=== PATIENT | male | born 1935 | race Caucasian/White ===

== ENCOUNTER 2017-01-27 13:58 | Outpatient (CLI) ==
[2013-01-17 20:59] VITALS: TEMP 97.5
[2016-03-17 05:35] VITALS: BMI 29.2
--- NOTE | 2017-01-27 15:48 | DI ---
EXAM: PA and lateral views of the chest HISTORY: Chronic obstructive pulmonary disease COMPARISON: Chest x-ray 06/26/2016 and 05/21/2015 FINDINGS: The cardiomediastinal silhouette is unchanged and mildly enlarged with atherosclerotic ch bright. The lungs are hyperinflated with minimal blunting of the costophrenic angles. There are line ar ground-glass opacities in the lung bases. There is no pneumothorax. There is no consolidation. The osseous structures demonstrate mild scattered degenerative disease IMPRESSION: 1. No acute consolidation with hyperinflation and linear opacities most consistent with chronic obs tructive pulmonary disease and bibasilar fibrosis versus atelectasis. 2. Cardiomediastinal silhouette is enlarged suggestive of megaly.
--- NOTE | 2017-01-27 16:42 | MRI ---
EXAM: MRI lumbar spine without IV contrast. DATE: 27 January 2017. HISTORY: Lumbar back pain. TECHNIQUE: Sagittal and axial T1W and T2W sequences of the lumbar spine along with sagittal IR and coronal T2W sequences were obtained using 1.2 Lana magnet. No IV contrast. COMPARISON: Thoracolumbar spine series [address] abdomen/pelvis one May 2014. CT chest 03/20/2015. FINDINGS: There are four classic [id number] lumbar vertebra. At the thoracolumbar junction, t here is a vertebra with hypoplastic ribs. Previous chest CT demonstrates 12 thoracic vertebra with classic paired ribs followed by this vertebra with hypoplastic ribs, which will be referred to as T1 3. At the lumbosacral junction, there are pseudoarticulations of the right and left L5 transverse p rocesses with the S1 sacral ala. Mild rotatory rightward curvature of the lumbar spine is observed. A 6 mm anterior subluxation of L 2 relative to L1, a 2.7 mm anterolisthesis of L3 relative to L2, a 2 mm anterior subluxation of L4 r elative to L3 are observed. No other subluxation, acute fracture, osseous malignancy, or pars inter articularis defect is demonstrated. Moderate/large osteophytes are present at multiple lumbar level s. Marked L1-2, moderate/marked L2-3, mild L3-4, moderate L4-5, moderate L5-S1 disc space narrowing is detected. Spinous process arthritis is noted at several lumbar levels. Mild degenerative endpla te changes are seen at several levels. Bone marrow signal is overall normal. No sacral fracture or stress reaction is identified. Small anterior osteophytes at the right SI joint are c/w arthritis. Conus medullaris terminates at L1. Visible spinal cord is normal. No retroperitoneal lymphadenopathy, paraspinal mass, or aortic aneurysm is detected. Atheroscleroti c plaques are present in the aortic wall. Psoas muscles are normal. There is moderate bilateral po sterior paraspinal muscle atrophy, especially inferiorly. Visible portions of the liver, spleen, ad renal glands are limited by breathing motion artifacts. T2W bright, partially exophytic 2.8 cm lesi on in the lateral cortex midzone left kidney correspond with a water density cyst on prior CT scan. Region of cortical thinning in the lateral cortex midzone/upper pole left kidney is likely focal sc arring. An adjacent 16 mm T2W bright focus is c/w water density (HU = 1) cyst on CT scan. Small ar eas of cortical thinning/indentations in the lower pole right kidney may represent scarring. Segmental analysis: T12-13: Normal, except for minor facet arthropathy. T13-L1: Minimal posterior to foraminal disc bulge and mild facet arthropathy cause triangulation of the canal and slight bilateral inferior foraminal encroachment. L1-2: Minor anterior subluxation of L2, broad spondylotic ridge at the L1 inferior endplate, modera te concentric disc bulge, mild facet arthropathy, and dorsal epidural fat cause moderate/marked cent ral canal stenosis, moderate right foraminal stenosis, and marked left foraminal stenosis. Left L1 nerve root appears to contact the disc bulge in the foramen. L2-3: Minor anterior subluxation of L2, small spondylotic ridge at the L2 inferior plate, moderate concentric disc bulge, mild facet arthropathy and dorsal epidural fat cause moderate central canal s tenosis and moderate bilateral foraminal stenoses. Each L2 nerve root contacts the disc bulge near the foramen. L3-4: Minor anterior subluxation of L4, small concentric disc bulge, moderate facet arthropathy, mi ld ligamentum flavum hypertrophy and dorsal epidural fat cause mild central canal stenosis, moderate /marked right foraminal stenosis, and marked narrowing at the left foraminal opening. Each L3 nerve root contacts the disc bulge near the foramen. L4-5: Moderate concentric disc bulge, moderate facet arthropathy, and moderate/marked ligamentum fl avum hypertrophy cause marked central canal stenosis and moderate/marked narrowing at the opening to each foramen. Each L4 nerve root contacts the disc bulge near the foramen. L5-S1: Small concentric disc bulge, small spondylotic ridge at the L5 inferior endplate, mild facet arthropathy cause mild/moderate bilateral foraminal stenoses. Thecal sac is mildly narrow due to a bundant epidural fat. IMPRESSIONS: 1. Four classic lumbar vertebra. Partial sacralization of L5. 13 rib-bearing vertebra. 2. Lumbar spine mild dextroscoliosis, moderate spondylosis, mild/moderate facet arthropathy, multip le minor subluxations, and multilevel DDD. 3. Multilevel central canal stenosis (T13-L1: Minor. L1-2: Moderate/marked. L2-3: Moderate. L3-4 : Mild. L4-5: Marked). 4. 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 5. T - L-spine small, chronic Schmorl's nodes. 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 7. Left kidney benign-appearing cortical cysts. 8. Bilateral renal focal cortical thinning/scars. 9. Abdominal aortic atherosclerosis.
== END 2017-01-27 13:59 | disposition home or self-care (01) ==
LOC: RAD 13:58
PROVIDERS: ATTEND Internal Medicine
DX: J44.9 Chronic obstructive pulmonary disease, unspecified (principal); M54.5 Low back pain

== ENCOUNTER 2017-05-28 07:20 | Inpatient (IN) ==
--- NOTE | 2017-05-28 07:31 | ED.PDOC ---
General ED Provider: Dr. LUIS ANTONIO DUDLEY Chief Complaint: Shortness of Air Stated Complaint: Patient presents with severe SOB, onset approx 0400. Woke him from sleep. Denies any chest or other pain. PMH of similar presentation that rapidly became resp. failure requiring intubation and assisted resps. Time Seen by Physician: 07:19 Mode of Arrival: Wheelchair Information Source: Patient, Family Exam Limitations: Physical impairment Primary Care Provider: SPARKLE MART Nursing and Triage Documentation Reviewed and Agree: Yes Respiratory Complaint Exam - Shortness of Air Complaint/Exam Onset/Duration: 0400 Symptoms Are: Still present Timing: Constant Initial Severity: Severe Current Severity: Severe Character: Reports: Dyspnea at rest Aggravating: Reports: Movement Alleviating: Reports: Oxygen Associated Signs and Symptoms: Reports: Fever, Chills Related History: Reports: Similar episode (unclear whether CHF or COPD exac or both) History of Healthcare-Acquired Pneumonia: No Cardiac Risk Factors: Reports: CAD, Hypertension Pseudomonas Risk Factors: Reports: Chronic Lung Disease Home Oxygen Use: No Recent Stress Test: No Recent Echo/LV Function: No Respiratory Distress: Moderate Stridor Present: No Tracheal Deviation: No Subcutaneous Emphysema: No Accessory Muscle Use: Yes Retractions: Not Present Diminished Breath Sounds: No Prolonged Expiratory Phase: No Unable to Speak Full Sentences: No Fatigue: No Leg Swelling: Yes Winifred's Sign Present: No Grunting Respirations: No Kussmaul Respirations: No Differential Diagnoses: CHF, Pulmonary Edema, COPD Exacerbation, GA, Pneumonia, Pulmonary Embolism, Bronchitis, Bronchospasm Quality Indicators For Pneumonia/CAP: SpO2 assessed, Vital signs, Mental status assessed Related Surgical History: Reports: Pacemaker, Thoracotomy Review of Systems - Review Of Systems Constitutional: Reports: Fever, Malaise Eyes: Reports: No symptoms Ears, Nose, Mouth, Throat: Reports: No symptoms Respiratory: Reports: Short of air Cardiac: Reports: No symptoms GI: Reports: No symptoms : Reports: No symptoms Musculoskeletal: Reports: No symptoms Skin: Reports: No symptoms Neurological: Reports: No symptoms All Other Systems: Reviewed and Negative Past Medical History - Past Medical History Previously Healthy: No Endocrine: Reports: DM 2, Hypothyroid, Dyslipidemia Cardiovascular: Reports: Hypertension, DVT Respiratory: Reports: COPD (from inhalation for concrete dust at work) Hematological: Reports: None Gastrointestinal: Reports: None Genitourinary: Reports: Kidney stones Neuro/Psych: Reports: None Musculoskeletal: Reports: Arthritis, Back Pain, Joint Pain Cancer: Reports: None Other Pertinent Past Medical History: htn dm thy copd ks - Surgical History General Surgical History: Reports: Orthopedic, Hernia Repair (x3). Denies: Appendectomy, Cholecystectomy, Tonsillectomy, Adenoidectomy, CABG, Stent - Family History Family History: Reports: Unknown - Social History Smoking Status: Never smoker Hx Substance Use: No Alcohol Screening: Occasionally Lives: With family - Immunizations Tetanus Shot up to Date: No Influenza Vaccine within 12 Months: No Pneumococcal Vaccine up to Date: No Physical Exam - Physical Exam Appearance: Ill-appearing, Well-nourished, Obese Ill-appearing: Moderate Pain Distress: None Eyes: ELIZA, EOMI, Conjunctiva clear ENT: Ears normal, Nose normal, Oropharynx normal Neck: Supple Respiratory: Airway patent, Breath sounds equal, Rhonchi (scattered rhonchi) Cardiovascular: RRR, Pulses normal, No rub, No murmur GI/: Soft, Nontender, No masses, Bowel sounds normal, No Organomegaly Musculoskeletal: Normal strength, ROM intact, No edema, No calf tenderness Skin: Warm, Dry, Normal color Neurological: Sensation intact, Motor intact, Reflexes intact, Cranial nerves intact, Alert, Oriented Psychiatric: Affect appropriate, Mood appropriate Interpretation - Radiology Interpretation Radiology Interpretation By: Radiologist Radiology Results: Positive Exam Interpreted: CXR Xray Comments: right multifocal pneumonia and small right pleural effusion - EKG Interpretation Time of EKG #1: 07:36 Rate: Normal Rhythm: Sinus Ectopy: PVCs (occasional PVCs & fusion complexes) [place]: NL ST Segment: Normal Interpretation: Cannot r/o inf infarct, age unknown Physician Notification - Case Discussed Physician Notified: Dr. Mart Time of Notification: 08:38 (admit) Critical Care Note - Critical Care Note Total Time (mins): 0 Course - Course Hematology/Chemistry: 05/28/17 07:28 05/28/17 07:28 Orders, Labs, Meds: Lab Review 05/28/17 05/28/17 05/28/17 07:28 07:28 07:28 WBC 14.29 H RBC 5.89 Hgb 13.5 L Hct 43.8 MCV 74.4 L MCH 22.9 L MCHC 30.8 L RDW Coeff of Marek 18.6 H Plt Count 208 Immature Gran % (Auto) 0.2 Neut % (Auto) 89.6 Lymph % (Auto) 3.5 L [place] % (Auto) 5.4 Eos % (Auto) 1.1 Baso % (Auto) 0.2 Immature Gran # (Auto) 0.0 Neut # 12.8 H Lymph # 0.5 L [place] # 0.8 Eos # 0.2 Baso # 0.0 D-Dimer (Manual) 1568.57 Puncture Site O2 Saturation ABG pH ABG pCO2 ABG pO2 ABG HCO3 ABG Total CO2 ABG Base Excess FiO2 % Sodium 143 Potassium 3.7 Chloride 107 Carbon Dioxide 24 Anion Gap 15.7 BUN 24 H Creatinine 1.45 H Estimated GFR (MDRD) 47.00 BUN/Creatinine Ratio 16.55 Glucose 137 H Lactic Acid Calcium 8.9 Total Bilirubin 1.36 H AST 18 ALT 14 Alkaline Phosphatase 105 Total Creatine Kinase 136 CK-MB (CK-2) 3.7 H CK-MB (CK-2) % 2.05175 Troponin I 0.0220 B-Natriuretic Peptide Total Protein 6.9 Albumin 3.4 Globulin 3.5 Albumin/Globulin Ratio 0.97 05/28/17 05/28/17 05/28/17 07:35 07:35 08:04 WBC RBC Hgb Hct MCV MCH MCHC RDW Coeff of Marek Plt Count Immature Gran % (Auto) Neut % (Auto) Lymph % (Auto) [place] % (Auto) Eos % (Auto) Baso % (Auto) Immature Gran # (Auto) Neut # Lymph # [place] # Eos # Baso # D-Dimer (Manual) Puncture Site Rb O2 Saturation 74.0 L ABG pH 7.412 ABG pCO2 35.7 ABG pO2 39.0 L* ABG HCO3 22.7 ABG Total CO2 24 ABG Base Excess -2 FiO2 % 21.0 Sodium Potassium Chloride Carbon Dioxide Anion Gap BUN Creatinine Estimated GFR (MDRD) BUN/Creatinine Ratio Glucose Lactic Acid 20.4 H Calcium Total Bilirubin AST ALT Alkaline Phosphatase Total Creatine Kinase CK-MB (CK-2) CK-MB (CK-2) % Troponin I B-Natriuretic Peptide 177 H Total Protein Albumin Globulin Albumin/Globulin Ratio Orders Category Date Time Status ABG DRAW REQUEST Stat CARDIO 05/28/17 08:04 Completed EKG-(ED ONLY) Stat CARDIO 05/28/17 07:26 Completed NEBULIZER TREATMENT Stat CARDIO 05/28/17 07:41 Completed ABG Stat LAB 05/28/17 08:04 Completed BLOOD CULTURE (ED ONLY) Stat LAB 05/28/17 07:27 Ordered BNP [B-TYPE NATRIURETIC PEPTIDE] Stat LAB 05/28/17 07:35 Completed CBC W/ AUTO DIFF Stat LAB 05/28/17 07:28 Completed COMPREHENSIVE METABOLIC PANEL Stat LAB 05/28/17 07:28 Completed CREATINE KINASE Stat LAB 05/28/17 07:28 Completed D-DIMER Stat LAB 05/28/17 07:28 Completed LACTIC ACID Stat LAB 05/28/17 07:35 Completed TROPONIN I Stat LAB 05/28/17 07:28 Completed URINALYSIS C & S IF INDICATED Stat LAB 05/28/17 07:26 Uncollected Ipratropium/Albuterol Neb [Duoneb] MEDS 05/28/17 07:41 Discontinued 1 vial NEB ONCE STA CHEST, 1V AP ONLY Stat RADS 05/28/17 07:28 Completed Medications Discontinued Medications Generic Name Dose Route Start Last Admin Trade Name Freq PRN Reason Stop Dose Admin Albuterol/Ipratropium 1 vial 05/28/17 07:41 05/28/17 07:49 Duoneb NEB 05/28/17 07:42 1 vial ONCE STA Administration Vital Signs: Temp Pulse Resp BP Pulse Ox 05/28/17 07:36 86 L 05/28/17 07:20 100.2 F H 90 24 135/74 68 L Departure - Departure Time of Disposition: 08:55 Disposition: ADMITTED INPATIENT Discharge Problem: Right lower lobe pneumonia Qualifiers: Pneumonia type: due to unspecified organism Qualified Code(s): J18.1 - Lobar pneumonia, unspecified organism Condition: Good Pt referred to PMD for follow-up: Yes Allergies/Adverse Reactions: Allergies No Known Allergies Allergy (Verified 05/28/17 07:28) Home Medications: Ambulatory Orders Duloxetine HCl [Cymbalta] 30 mg PO DAILY 01/17/13 Levothyroxine Sodium [Synthroid] 125 mcg PO DAILY 01/17/13 Simvastatin 5 mg PO BEDTIME 01/17/13 Zolpidem Tartrate 5 mg PO PRN PRN 01/17/13 Bumetanide 2 mg PO DAILY 03/20/15 Glimepiride 2 mg PO BID 03/20/15 Albuterol Sulfate [Proair Hfa] 2 puff IH QID PRN 03/21/15 Mometasone/Formoterol [Dulera 200 Mcg/5 Mcg Inhaler] 2 puff IH BID 03/21/15 Clonidine HCl [Catapres] 0.3 mg PO TID 05/21/15 Hydrocodone Bit/Acetaminophen [Rombauer 7.5-325] 7.5 mg PO TID PRN 05/21/15 Tolterodine Tartrate [Detrol LA] 4 mg PO DAILY 05/21/15 Triamcinolone Acetonide [Kenalog 0.1%] 1 applic TP BID PRN 05/21/15 Amlodipine Besylate [Norvasc] 10 mg PO DAILY 05/28/17 Aspirin [Aspir-Low] 81 mg PO DAILY 05/28/17 Carvedilol [Coreg] 12.5 mg PO BIDWM 05/28/17 Fluocinonide [Lidex 0.05% Ointment] 1 applic TP PRN PRN 05/28/17 Losartan Potassium [Cozaar] 100 mg PO DAILY 05/28/17 Metronidazole/Skin Cleansr #23 [Rosadan 0.75% Gel Kit] 1 each TP BID 05/28/17 Potassium Chloride [K-Dur] 20 meq PO DAILY 05/28/17 Testosterone [Testopel] 75 mg [place] PRN PRN 05/28/17 Disposition Discussed With: Patient
[2017-05-28 07:41] LABS: BASOPHILS % (AUTO) 0.2 % (0.0-3.0); EOSINOPHILS # (AUTO) 0.2 K/ul (0.0-0.7); EOSINOPHILS % (AUTO) 1.1 % (0.0-7.0); HEMATOCRIT 43.8 % (42.0-52.0); HEMOGLOBIN 13.5 g/dl (14.0-18.0); IMMATURE GRANULOCYTE % (AUTO) 0.2 % (0.0-5.0); LYMPHOCYTES # (AUTO) 0.5 K/uL (0.60-3.4); LYMPHOCYTES % (AUTO) 3.5 (10.0-50.0); MEAN CORPUSCULAR HEMOGLOBIN 22.9 pg (27.0-31.0); MEAN CORPUSCULAR HGB CONC 30.8 (31.8-35.4); MEAN CORPUSCULAR VOLUME 74.4 fl (80.0-94.0); MONOCYTES # (AUTO) 0.8 K/uL (0.4-2.0); MONOCYTES % (AUTO) 5.4 (0-10); NEUTROPHILS # (AUTO) 12.8 K/ul (2.0-6.9); NEUTROPHILS % (AUTO) 89.6; PLATELET COUNT 208 10^3/uL (140-440); RED BLOOD COUNT 5.89 10^6/ul (4.70-6.10); WHITE BLOOD COUNT 14.29 K/ul (4.2-10.2)
[2017-05-28] MEDS ORDERED: DUONEB NEB STA (07:41)
--- NOTE | 2017-05-28 07:47 | DI ---
EXAM: Single view of the chest. History: Short of breath Comparison: Chest radiograph 01/27/2017 Findings: Atherosclerotic vascular calcifications. Interval development of multifocal right lung inf iltrates and right pleural effusion. No pneumothorax. Visualized osseous structures unchanged. Hea rt size is borderline enlarged. Impression: 1. Interval development of multifocal right lung pneumonia and small right pleural effusion. Follow -up recommended.
[2017-05-28 08:09] LABS: ABG PCO2 35.7 mmHg (35-45); ABG PH 7.412 (7.35-7.45)
[2017-05-28 08:10] LABS: ABG BASE EXCESS -2 (-2.0-2.0); ABG HCO3 22.7 (22.0-26.0); ABG TCO2 24 (22.0-28.0)
[2017-05-28 08:14] LABS: ALBUMIN 3.4 g/dL (3.4-5.0); ALBUMIN/GLOBULIN RATIO 0.97; ANION GAP 15.7; BILIRUBIN,TOTAL 1.36 mg/dL (0.00-1.20); BUN/CREATININE RATIO 16.55; CALCIUM 8.9 mg/dL (8.2-10.2); CREATININE 1.45 mg/dL (0.60-1.10); POTASSIUM 3.7 mmol/L (3.5-5.1); TOTAL PROTEIN 6.9 g/dL (5.8-8.1); TROPONIN I 0.022 ng/ml (0.0000-0.4000)
[2017-05-28 08:21] LABS: CREATINE KINASE MB 3.7 ng/ml (0.0-3.6)
[2017-05-28] MEDS ORDERED: SOLU-MEDROL 125 MG IVP STA (08:38)
[2017-05-28] MEDS ORDERED: ALBUTEROL 0.042% NEB IH PRN (08:39)
[2017-05-28 08:50] LABS: BILIRUBIN,URINE Negative (NEGATIVE); KETONES,URINE Negative (NEGATIVE); LEUKOCYTE ESTERASE ,URINE Negative (NEGATIVE); NITRITE,URINE Negative (NEGATIVE); PH,URINE 5.5 (5-9); PROTEIN,URINE 1+ (NEGATIVE); URINE, BLOOD Negative (NEGATIVE)
[2017-05-28 08:51] LABS: ADD URINE MICROSCOPIC YES
[2017-05-28] MEDS ORDERED: ROCEPHIN ONE (08:58)
[2017-05-28] MEDS ORDERED: DUONEB NEB SCH (09:00)
[2017-05-28] MEDS ORDERED: TYLENOL PO PRN (09:00)
[2017-05-28] MEDS ORDERED: ROCEPHIN 1 GM in SODIUM CHLORIDE 50 ML IV SCH (09:00)
[2017-05-28] MEDS ORDERED: ROCEPHIN 1 GM in SODIUM CHLORIDE 50 ML IV STA (09:06)
[2017-05-28 09:40] LABS: ABG BASE EXCESS -1 (-2.0-2.0); ABG HCO3 23.2 (22.0-26.0); ABG PCO2 34.6 mmHg (35-45); ABG PH 7.434 (7.35-7.45); ABG TCO2 24 (22.0-28.0)
[2017-05-28] MEDS ORDERED: LASIX IVP STA (10:43)
[2017-05-28] MEDS: ZITHROMAX 500 MG in SODIUM CHLORIDE 250 ML IV SCH (10:56)
[2017-05-28] MEDS: SODIUM CHLORIDE 1,000 ML IV SCH (10:57)
[2017-05-28 11:39] VITALS: BMI 29.2
[2017-05-28] MEDS: XOPENEX 1.25 MG NEB SCH ×3 (11:52→23:48)
[2017-05-28] MEDS ORDERED: NORCO 7.5-325 PO PRN (14:15)
[2017-05-28] MEDS ORDERED: PROAIR HFA IH PRN (14:15)
[2017-05-28] MEDS ORDERED: FLUOCINONIDE TP PRN (14:15)
[2017-05-28] MEDS ORDERED: NON-FORMULARY MEDICATION (Bumetanide [Bumetanide] 2 MG) PO SCH (14:15)
[2017-05-28] MEDS ORDERED: AMBIEN PO PRN (14:15)
[2017-05-28] MEDS ORDERED: NON-FORMULARY MEDICATION (Tolterodine Tartrate 4 MG) PO SCH (14:15)
[2017-05-28] MEDS ORDERED: NON-FORMULARY MEDICATION (Levothyroxine Sodium [Synthroid] 125 MCG) PO SCH ×22 (14:15)
[2017-05-28] MEDS ORDERED: NON-FORMULARY MEDICATION (Amlodipine Besylate [Norvasc] 10 MG) PO SCH ×22 (14:15)
[2017-05-28] MEDS ORDERED: KENALOG 0.1% TP PRN (14:15)
[2017-05-28] MEDS ORDERED: VANCOMYCIN 1 GM in SODIUM CHLORIDE 250 ML IV STA (14:26)
[2017-05-28] MEDS ORDERED: AMARYL PO SCH (14:30)
[2017-05-28] MEDS ORDERED: NORVASC ONE (15:25)
[2017-05-28] MEDS ORDERED: CATAPRES ONE ×2 (15:25→20:42)
[2017-05-28] MEDS ORDERED: BUMEX ONE (15:25)
[2017-05-28] MEDS ORDERED: AMARYL ONE (15:25)
[2017-05-28] MEDS ORDERED: COZAAR ONE (15:26)
[2017-05-28] MEDS: SOLU-MEDROL 125 MG IVP SCH ×2 (15:34→19:17)
[2017-05-28] MEDS: COZAAR PO SCH (15:37)
[2017-05-28] MEDS: CYMBALTA PO SCH (15:38)
[2017-05-28] MEDS: CLONIDINE HCL 0.3 MG PO SCH ×44 (15:39→20:47)
[2017-05-28] MEDS: K-DUR PO SCH (15:39)
[2017-05-28] MEDS ORDERED: COREG ONE (16:27)
[2017-05-28] MEDS ORDERED: SYNTHROID ONE ×2 (16:27)
[2017-05-28] MEDS: COREG PO SCH (18:56)
[2017-05-28] MEDS ORDERED: ZOCOR ONE (20:41)
[2017-05-28] MEDS: ASPIRIN EC PO SCH (20:47)
[2017-05-28] MEDS ORDERED: NON-FORMULARY MEDICATION (Mometasone/Formoterol [Dulera 200 Mcg/5 Mcg Inhaler] 2 PUFF) IH SCH (21:00)
[2017-05-28] MEDS ORDERED: SIMVASTATIN 5 MG PO SCH (21:00)
[2017-05-28] MEDS: AMBIEN PO PRN (22:33)
[2017-05-29] MEDS: SOLU-MEDROL 125 MG IVP SCH ×5 (00:09→23:24)
[2017-05-29] MEDS: SODIUM CHLORIDE 1,000 ML IV SCH (02:03)
[2017-05-29] MEDS: XOPENEX 1.25 MG NEB SCH ×3 (05:22→18:00)
[2017-05-29] MEDS: PRILOSEC PO SCH (05:38)
[2017-05-29 05:41] LABS: BASOPHILS % (AUTO) 0.1 % (0.0-3.0); HEMATOCRIT 37.5 % (42.0-52.0); HEMOGLOBIN 11.8 g/dl (14.0-18.0); IMMATURE GRANULOCYTE % (AUTO) 0.6 % (0.0-5.0); LYMPHOCYTES # (AUTO) 0.6 K/uL (0.60-3.4); LYMPHOCYTES % (AUTO) 3.7 (10.0-50.0); MEAN CORPUSCULAR HEMOGLOBIN 22.9 pg (27.0-31.0); MEAN CORPUSCULAR HGB CONC 31.5 (31.8-35.4); MEAN CORPUSCULAR VOLUME 72.8 fl (80.0-94.0); MONOCYTES # (AUTO) 0.4 K/uL (0.4-2.0); MONOCYTES % (AUTO) 2.2 (0-10); NEUTROPHILS # (AUTO) 14.9 K/ul (2.0-6.9); NEUTROPHILS % (AUTO) 93.4; PLATELET COUNT 184 10^3/uL (140-440); RED BLOOD COUNT 5.15 10^6/ul (4.70-6.10); WHITE BLOOD COUNT 15.97 K/ul (4.2-10.2)
[2017-05-29 06:01] LABS: ALBUMIN 2.8 g/dL (3.4-5.0); ALBUMIN/GLOBULIN RATIO 0.82; ANION GAP 11.9; BILIRUBIN,TOTAL 1.62 mg/dL (0.00-1.20); BUN/CREATININE RATIO 17.36; CALCIUM 8.4 mg/dL (8.2-10.2); CREATININE 1.67 mg/dL (0.60-1.10); POTASSIUM 3.9 mmol/L (3.5-5.1); TOTAL PROTEIN 6.2 g/dL (5.8-8.1)
[2017-05-29] MEDS: ROCEPHIN 1 GM in SODIUM CHLORIDE 50 ML IV SCH (08:23)
[2017-05-29 08:25] LABS: ABG PCO2 32.4 mmHg (35-45); ABG PH 7.436 (7.35-7.45)
[2017-05-29] MEDS: BUMEX PO SCH (08:25)
[2017-05-29 08:26] LABS: ABG BASE EXCESS -2 (-2.0-2.0); ABG HCO3 21.8 (22.0-26.0); ABG TCO2 23 (22.0-28.0)
[2017-05-29] MEDS: K-DUR PO SCH (08:26)
[2017-05-29] MEDS: SYNTHROID PO SCH ×2 (08:26→08:27)
[2017-05-29] MEDS: DETROL LA PO SCH (08:26)
[2017-05-29] MEDS: CATAPRES PO SCH ×3 (08:26→20:13)
[2017-05-29] MEDS: NORVASC PO SCH (08:26)
[2017-05-29] MEDS: AMARYL PO SCH (08:27)
[2017-05-29] MEDS: CYMBALTA PO SCH (08:27)
[2017-05-29] MEDS: COZAAR PO SCH (08:27)
[2017-05-29] MEDS: COREG PO SCH ×2 (08:27→16:55)
[2017-05-29] MEDS: NON-FORMULARY MEDICATION (Mometasone/Formoterol [Dulera 200 Mcg/5 Mcg Inhaler] 2 PUFF) IH SCH ×2 (08:28→20:13)
[2017-05-29] MEDS ORDERED: VANCOMYCIN 1 GM in SODIUM CHLORIDE 250 ML IV SCH (09:00)
[2017-05-29] MEDS: ZITHROMAX 500 MG in SODIUM CHLORIDE 250 ML IV SCH (09:10)
--- NOTE | 2017-05-29 09:59 | PCM.PROG ---
Attending Provider: ATTENDING PROVIDER: Dr. SPARKLE MART This patient is seen with Cary Xavier, Nurse Practitioner. DATE OF SERVICE: 05/29/17 SUBJECTIVE: This 82 year old WHITE/ M was hospitalized 05/28/17. The patient is alert, lying in bed. He states shortness of breath has improved. Appetite is good today. No fever. REVIEW OF SYSTEMS: CONSTITUTIONAL: Fatigue, fever and chills have resolved. No night sweats. No fever or chills. HEENT: Eyes: No visual changes. No eye pain. No eye discharge. ENT: No runny nose. No epistaxis. No sinus pain. No odynophagia. No congestion. RESPIRATORY: No cough, no congestion. No hemoptysis. Mild shortness of breath improving. CARDIOVASCULAR: No angina symptoms. No CHF symptoms. No atypical chest pain for CAD. No palpitations. No orthopnea.. GASTROINTESTINAL: No abdominal pain. No nausea or vomiting. No diarrhea or constipation. No hematemesis. No hematochezia. GENITOURINARY: No urgency. No frequency. No dysuria. No hematuria. No obstructive symptoms. No discharge. No pain. No significant abnormal bleeding. MUSCULOSKELETAL: No musculoskeletal pain; no joint swelling. NEUROLOGICAL: Awake, alert, oriented to time, place and person. No headache. No neck pain. No syncope. No seizures. No dizziness. PSYCHIATRIC: Not anxious. No depression. No suicidal thoughts. No homicidal thoughts. SKIN: No rash. No lesions. No wounds. ENDOCRINE: No unexplained weight loss. No weight gain. HEMATOLOGIC/LYMPHATIC: No anemia. No purpura. No petechiae. No prolonged or excessive bleeding. No palpable lymph nodes. PHYSICAL EXAMINATION: GENERAL: The patient is awake, alert and oriented, lying in bed in no distress. VITAL SIGNS: Temperature 98.0 F, Pulse 76, Respiratory Rate 20, BP 135/86, Pulse Ox 99% HEENT: Head normocephalic, atraumatic. Eyes: Extraocular muscles are intact. Pupils are equal, round and reactive to light and accommodation. Ears: No lesions. Nose appeared normal. Throat: No exudate or erythema. NECK: Supple. No JVD, no carotid bruit. No lymphadenopathy or thyromegaly. LUNGS: Diminished breath sounds bilaterally. Clear to auscultation. Percussion note normal. Chest symmetrical. HEART: S1, S2, no S3. No murmurs. No cyanosis or clubbing. No ascites. Pulses: Dorsalis pedis and posterior tibial pulses +1 to +2 both sides. ABDOMEN: Soft. Non-tender. Bowel sounds active. No CVA tenderness. No mass felt. EXTREMITIES: No edema. Full range of motion of all extremities, equal. NEUROLOGIC: No focal deficit. Cranial nerves II through XII are grossly intact. No headache, no double vision or headache. SKIN: Not dry. Intact. Turgor-normal. LYMPHATIC: No palpable lymph nodes/no lymphedema. MUSCULOSKELETAL: Normal joints with no swelling. Muscle tone is normal. LAB REVIEW: 05/29/17 05:17 05/29/17 05:17 05/29/17 05:17: Sodium 138, Potassium 3.9, Chloride 106, Carbon Dioxide 24, Anion Gap 11.9, BUN 29 H, Creatinine 1.67 H, Estimated GFR (MDRD) 40.00, BUN/ Creatinine Ratio 17.36, Glucose 376 H D, Calcium 8.4, Total Bilirubin 1.62 H, AST 12 L, ALT 12, Alkaline Phosphatase 75 D, Total Protein 6.2, Albumin 2.8 L, Globulin 3.4, Albumin/Globulin Ratio 0.82 05/29/17 05:17: WBC 15.97 H, RBC 5.15, Hgb 11.8 L, Hct 37.5 L D, MCV 72.8 L, MCH 22.9 L, MCHC 31.5 L, RDW Coeff of Marek 18.0 H, Plt Count 184, Immature Gran % (Auto) 0.6, Neut % (Auto) 93.4, Lymph % (Auto) 3.7 L, [place] % (Auto) 2.2, Eos % (Auto) 0.0, Baso % (Auto) 0.1, Immature Gran # (Auto) 0.1, Neut # 14.9 H, Lymph # 0.6, [place] # 0.4, Eos # 0.0, Baso # 0.0 05/28/17 09:37: Puncture Site Rb, O2 Saturation 92.0 L, ABG pH 7.434, ABG pCO2 34.6 L, ABG pO2 61.0 L, ABG HCO3 23.2, ABG Total CO2 24, ABG Base Excess -1, O2 Delivery Device Nc, Oxygen Liter Flow 4.00, FiO2 % 36.0 ASSESSMENT: 1. Right lower lobe pneumonia 2. Right pleural effusion 3. Acute respiratory failure resolving 4. Pulmonary fibrosis 5. Leg edema 6. Hypertrophic cardiomyopathy PLAN: 1. Continue IV antibiotics 2. Echo today 3. Repeat ABG on room air this morning Plan and coordination of the patient's care discussed in the presence of Log Peeler and nurse. CONDITION: Stable SCRIBED BY: Von HUMMEL scribed while in presence of service performed by Dr. Mart/Cary Xavier APRN on 05/29/17 ([id number])
--- NOTE | 2017-05-29 13:40 | PN ---
DATE OF SERVICE: 05/28/17 (ADMISSION NOTE) The patient was seen on 05/28/17 in the ER. At that time, and daughter were present. Dr. Mora was nutrition representative. The case was discussed with him. The patient was again seen in the [facility]. REASON FOR HOSPITALIZATION: Acute respiratory failure. HISTORY OF PRESENT ILLNESS: 82-year-old white male woke up short of breath with fever and chills at 4 a.m. on the day of hospitalization. The patient was in respiratory distress. Arterial blood gases on admission showed p02 of 39, pc02 35 with pH of 7.41 with 74% saturation. The patient was given nebs treatment. His condition improved. On chest x-ray, the patient showed right lung pneumonia. The patient has history of chronic lung disease based on rheumatoid arthritis very likely. Also has history of pneumonia with complications followed by pulmonary [place]. PHYSICAL EXAMINATION: GENERAL: The patient was oriented to time, place and person. VITAL SIGNS: Temperature 100.2, pulse 90, respiratory rate 24, BP 135/74, pulse ox 72% on room air. HEENT: Head normocephalic, atraumatic. Eyes: Extraocular muscles are intact. Pupils are equal, round and reactive to light and accommodation. Ears: No lesions. Nose appeared normal. Throat: No exudate or erythema. NECK: Supple. No JVD, no carotid bruit. No lymphadenopathy or thyromegaly. LUNGS: Bilateral dry crepitations more on the right than left with mild wheeze expiratory. Percussion note normal. Chest symmetrical. HEART: S1, S2, no S3. Tachycardia noted. No murmurs. No cyanosis or clubbing. No ascites. Pulses: Dorsalis pedis and posterior tibial pulses +1 to +2 both sides. ABDOMEN: Soft. Nontender. Bowel sounds active. No ascites. No CVA tenderness. No mass felt. EXTREMITIES: Pedal edema +1 bilaterally. Full range of motion of all extremities, equal. NEUROLOGIC: No focal deficit. Cranial nerves II through XII are grossly intact. No headache, no double vision or headache. SKIN: Not dry. Intact. Turgor - normal. LYMPHATIC: No palpable lymph nodes/no lymphedema. MUSCULOSKELETAL: Normal joints with no swelling. Muscle tone is normal. LABS: BNP 179, borderline high. Lactic acid 20.4 borderline high. ASSESSMENT: 1. ACUTE RESPIRATORY FAILURE WITH PNEUMONIA 2. 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 DIABETES MELLITUS 4. HYPERTENSION 5. DYSLIPIDEMIA 6. GENERALIZED OSTEOARTHRITIS 7. BILATERAL DEPENDENT LEG EDEMA PLAN: 1. IV antibiotic, Rocephin, Zithromax 2. Will add Vancomycin 3. IV Solu-Cortef q.4 to q.6 4. Nebs treatment with Xopenex and Pulmicort 5. Oxygen 4L 6. Monitor ABGs 7. Telemetry 8. EKG PROGNOSIS: Guarded CONDITION: Seems to be stable TIME SPENT: More than 30 minutes. Plan and coordination of the patient's care discussed in the presence of nurse. MATTHEW
[2017-05-29] MEDS: ZOCOR PO SCH (20:13)
[2017-05-29] MEDS: ASPIRIN EC PO SCH (20:13)
[2017-05-29] MEDS: HUMULIN R SUBCUT PRN (20:14)
[2017-05-29] MEDS: AMBIEN PO PRN (23:23)
[2017-05-30] MEDS: XOPENEX 1.25 MG NEB SCH ×5 (00:15→23:11)
[2017-05-30 04:43] LABS: BASOPHILS % (AUTO) 0.1 % (0.0-3.0); HEMATOCRIT 34.8 % (42.0-52.0); IMMATURE GRANULOCYTE % (AUTO) 0.7 % (0.0-5.0); LYMPHOCYTES # (AUTO) 0.5 K/uL (0.60-3.4); LYMPHOCYTES % (AUTO) 3.3 (10.0-50.0); MEAN CORPUSCULAR HGB CONC 31.6 (31.8-35.4); MEAN CORPUSCULAR VOLUME 72.7 fl (80.0-94.0); MONOCYTES # (AUTO) 0.6 K/uL (0.4-2.0); MONOCYTES % (AUTO) 3.8 (0-10); NEUTROPHILS # (AUTO) 14.7 K/ul (2.0-6.9); NEUTROPHILS % (AUTO) 92.1; PLATELET COUNT 189 10^3/uL (140-440); RED BLOOD COUNT 4.79 10^6/ul (4.70-6.10); WHITE BLOOD COUNT 15.99 K/ul (4.2-10.2)
[2017-05-30 05:07] LABS: ALBUMIN 2.6 g/dL (3.4-5.0); ALBUMIN/GLOBULIN RATIO 0.79; ANION GAP 13.1; BILIRUBIN,TOTAL 0.99 mg/dL (0.00-1.20); BUN/CREATININE RATIO 23.87; CALCIUM 8.5 mg/dL (8.2-10.2); CREATININE 1.55 mg/dL (0.60-1.10); POTASSIUM 4.1 mmol/L (3.5-5.1); TOTAL PROTEIN 5.9 g/dL (5.8-8.1)
[2017-05-30] MEDS: SOLU-MEDROL 125 MG IVP SCH (05:31)
[2017-05-30] MEDS: PRILOSEC PO SCH (05:31)
[2017-05-30] MEDS: SYNTHROID PO SCH ×2 (05:31)
[2017-05-30] MEDS: HUMULIN R SUBCUT PRN ×4 (05:31→20:46)
[2017-05-30] MEDS: COREG PO SCH ×2 (08:51→17:07)
[2017-05-30] MEDS: K-DUR PO SCH (08:51)
[2017-05-30] MEDS: ROCEPHIN 1 GM in SODIUM CHLORIDE 50 ML IV SCH (08:51)
[2017-05-30] MEDS: NON-FORMULARY MEDICATION (Mometasone/Formoterol [Dulera 200 Mcg/5 Mcg Inhaler] 2 PUFF) IH SCH ×2 (08:51→20:38)
[2017-05-30] MEDS: BUMEX PO SCH (08:52)
[2017-05-30] MEDS: CATAPRES PO SCH ×3 (08:52→20:35)
[2017-05-30] MEDS: DETROL LA PO SCH (08:52)
[2017-05-30] MEDS: COZAAR PO SCH (08:52)
[2017-05-30] MEDS: CYMBALTA PO SCH (08:52)
[2017-05-30] MEDS: NORVASC PO SCH (08:53)
[2017-05-30] MEDS: AMARYL PO SCH (08:53)
[2017-05-30] MEDS: ZITHROMAX 500 MG in SODIUM CHLORIDE 250 ML IV SCH (09:50)
[2017-05-30] MEDS: PREDNISONE PO SCH ×2 (11:05→17:08)
--- NOTE | 2017-05-30 11:22 | RS.PTINEVL ---
Subjective - Patient information Date of Evaluation: 05/30/17 Date of Arrival on Unit: 05/28/17 Admitted From:: Home Usual Living Arrangement: With Spouse Home Environment: House, Stairs (many), Rail Medical History: Hypertension, COPD, Diabetes, Arthritis Medical History Comments:: back pain, DVT LATEX ALLERGY?: No Surgical History: Knee Replacement, Cholecystectomy, CABG Surgical History Comments:: hernia repair x 3 Subjective Information/ Patient Comments:: pt states he falls frequently due to weakness in LLE and LLE "gives out" pt admitted with diagnosis of R multifocal pneumonia, and small R pleural effusions. - Level of function Prior to this admission, the patient could do the following:: Independent Selfcare, Independent ADL's, Independent Ambulation, Drive, Participated in Social Activities Outside home, Volunteer/Work Abilities prior to this admission: pt serves as [id number] Current Level of Function: Partially Dependent Current Equipment Used at Home: oxygen, walker, cane Interventions - Objective Patient Orientation: Person, Place, Time, Situation Current Interventions: IV's, Oxygen, Telemetry Observation: pt with 2+ pitting edema BLE L worse than R Range of Motion - ROM Right Upper Extremity AROM: WFL's Left Upper Extremity AROM: WFL's Right Lower Extremity AROM: WFL's Left Lower Extremity AROM: Slight limitation (L ankle ROM limited due to deformity of L foot, talonavicular joint has dropped) Muscle Strength - Muscle Strength Right Upper Extremity Strength: Mild Weakness (grossly 4/5) Left Upper Extremity Strength: Mild Weakness (grossly 4/5) Right Lower Extremity Strength: Mild Weakness (R LE hip flex 4-/5, knee flex/ ext 4/5, ankle DF/PF 4/5) Left Lower Extremity Strength: Mild Weakness (LLE hip flex 3+/5, knee flex/ext 4 -/5, ankle DF/PF 3/5) Sensation - Sensation Right Upper Extremity Sensation: Intact/Normal Left Upper Extremity Sensation: Intact/Normal Right Lower Extremity Sensation: Intact/Normal Left Lower Extremity Sensation: Impaired Balance - Sitting Balance and Reactions Static Sitting Balance: Good Dynamic Sitting Balance: Fair - Standing Balance and Reactions Static Standing Balance: Fair Dynamic Standing Balance: Fair Standing Equilibrium Reactions: Delayed Left, Delayed Right Standing Protective Reactions: Delayed Left, Delayed Right - Comments Balance Assessment Comments: pt with increased lat sway and slight ataxic gait, much improved with rwx than with cane. Functional Mobility - Bed Mobility Rolling R/L: CGA Scooting: Verbal Cues Supine to Sit: Min Assist Sit to Supine: Min Assist - Transfers Sit to Stand: Min Assist Stand to Sit: Min Assist - Safety Awareness Safety Awareness: Good Ambulation - Ambulation Assistive Device Used: Rolling Walker Orthotic/Prosthetic Device: No Distance: 75ft Assistance needed with Ambulation: CGA, 1 person assist, 2 person assist Gait Deviations: Shuffling gait, Ataxic gait, Forward posture Ambulation Comments: pt with ataxic gait which is much improved with use of rwx vs cane. pt amb with decreased step length with CGA of 1-2 for IV pole and O2 Factors Affecting Ambulation: Decreased Balance, Breathing/O2 Saturation, Weakness, Decreased Safety, Limited Sensation Treatment time - Time with patient Total treatment time: 34 Patient Education - Education Patient Education: Home Safety, Activity Modification, Education of Plan of Care Teaching Recipient: Patient Teaching Methods: Discussion, Demonstration (Discussion with patient regarding use of rwx to improve gait pattern.) Assessment - Assessment Problem List:: Decreased level of function, Requires training/education, Decreased safety/Risk of falls, Weakness Rehab Potential: Good Further Therapy Indicated?: Yes Short Term Goals GOAL #1: pt demonstrate independence with bed mobility Goal to be met by: 06/01/17 GOAL #2: pt transfer sup to/from sit to/from stand SBA Goal to be met by: 06/01/17 GOAL #3: pt amb with rwx 100ft with SBA with no LOB with improved gait pattern Goal to be met by: 06/01/17 Skilled Nursing Goals GOAL #1: pt amb with AAD 150ft independently with no LOB Goal to be met by: 06/03/17 GOAL #2: pt transfer sup to/from sit to/from stand independently Goal to be met by: 06/03/17 GOAL #3: Improved strength BLE 4 to 4+/5, pt independent with HEP Goal to be met by: 06/03/17 Plan Plan of Care: Therapeutic EX, Therapeutic Activity, Self-Care/Home Management Other:: gait training Frequency of Treatment: 1-2 X day, as tolerated Duration of Treatment: 4 days Anticipated Discharge Destination: Home
--- NOTE | 2017-05-30 11:30 | PCM.PROG ---
Attending Provider: ATTENDING PROVIDER: Dr. SPARKLE MART This patient is seen with Cary Xavier, Nurse Practitioner. DATE OF SERVICE: 05/30/17 SUBJECTIVE: This 82 year old WHITE/ M was hospitalized 05/28/17. The patient is resting well. No fever. He has been eating 50 to 100% of his meals. He has been weaned to 3L/NC/min. REVIEW OF SYSTEMS: CONSTITUTIONAL: No night sweats. No fatigue, malaise, lethargy. No fever or chills. HEENT: Eyes: No visual changes. No eye pain. No eye discharge. ENT: No runny nose. No epistaxis. No sinus pain. No odynophagia. No congestion. RESPIRATORY: Cough and congestion. No hemoptysis. Shortness of breath, improved. CARDIOVASCULAR: No angina symptoms. No CHF symptoms. No atypical chest pain for CAD. No palpitations. No orthopnea.. GASTROINTESTINAL: No abdominal pain. No nausea or vomiting. No diarrhea or constipation. No hematemesis. No hematochezia. GENITOURINARY: No urgency. No frequency. No dysuria. No hematuria. No obstructive symptoms. No discharge. No pain. No significant abnormal bleeding. MUSCULOSKELETAL: No musculoskeletal pain; no joint swelling. NEUROLOGICAL: Awake, alert, oriented to time, place and person. No headache. No neck pain. No syncope. No seizures. No dizziness. PSYCHIATRIC: Not anxious. No depression. No suicidal thoughts. No homicidal thoughts. SKIN: No rash. No lesions. No wounds. ENDOCRINE: No unexplained weight loss. No weight gain. HEMATOLOGIC/LYMPHATIC: No anemia. No purpura. No petechiae. No prolonged or excessive bleeding. No palpable lymph nodes. PHYSICAL EXAMINATION: GENERAL: The patient is awake, alert and oriented, lying in bed in no distress. VITAL SIGNS: Temperature 97.1 F, Pulse 69, Respiratory Rate 18, BP 102/56, Pulse Ox 94% HEENT: Head normocephalic, atraumatic. Eyes: Extraocular muscles are intact. Pupils are equal, round and reactive to light and accommodation. Ears: No lesions. Nose appeared normal. Throat: No exudate or erythema. NECK: Supple. No JVD, no carotid bruit. No lymphadenopathy or thyromegaly. LUNGS: Decreased breath sounds bilaterally. Clear to auscultation. Percussion note normal. Chest symmetrical. HEART: S1, S2, no S3. No murmurs. No cyanosis or clubbing. No ascites. Pulses: Dorsalis pedis and posterior tibial pulses +1 to +2 both sides. ABDOMEN: Soft. Non-tender. Bowel sounds active. No CVA tenderness. No mass felt. EXTREMITIES: No edema. Full range of motion of all extremities, equal. NEUROLOGIC: No focal deficit. Cranial nerves II through XII are grossly intact. No headache, no double vision or headache. SKIN: Not dry. Intact. Turgor-normal. LYMPHATIC: No palpable lymph nodes/no lymphedema. MUSCULOSKELETAL: Normal joints with no swelling. Muscle tone is normal. LAB REVIEW: 05/30/17 04:38 05/30/17 04:38 05/30/17 04:38: Sodium 138, Potassium 4.1, Chloride 106, Carbon Dioxide 23, Anion Gap 13.1, BUN 37 H, Creatinine 1.55 H, Estimated GFR (MDRD) 43.00, BUN/ Creatinine Ratio 23.87, Glucose 300 H D, Calcium 8.5, Total Bilirubin 0.99, AST 12 L, ALT 11 L, Alkaline Phosphatase 75, Total Protein 5.9, Albumin 2.6 L, Globulin 3.3, Albumin/Globulin Ratio 0.79 05/30/17 04:38: WBC 15.99 H, RBC 4.79, Hgb 11.0 L, Hct 34.8 L, MCV 72.7 L, MCH 23.0 L, MCHC 31.6 L, RDW Coeff of Marek 18.0 H, Plt Count 189, Immature Gran % ( Auto) 0.7, Neut % (Auto) 92.1, Lymph % (Auto) 3.3 L, [place] % (Auto) 3.8, Eos % ( Auto) 0.0, Baso % (Auto) 0.1, Immature Gran # (Auto) 0.1, Neut # 14.7 H, Lymph # 0.5 L, [place] # 0.6, Eos # 0.0, Baso # 0.0 05/29/17 08:23: Puncture Site Rrad, O2 Saturation 89.0 L, ABG pH 7.436, ABG pCO2 32.4 L, ABG pO2 54.0 L*, ABG HCO3 21.8 L, ABG Total CO2 23, ABG Base Excess -2, Storm Test +, FiO2 % 21.0 ASSESSMENT: 1. Right lower lobe pneumonia 2. Right pleural effusion 3. Acute respiratory failure resolving 4. Pulmonary fibrosis 5. Leg edema 6. Hypertrophic cardiomyopathy PLAN: 1. Prednisone 10 mg b.i.d. 2. D/C Solu-Medrol 3. Up and about as tolerated Plan and coordination of the patient's care discussed in the presence of Hoop Flaring Machine Operator Helper and nurse. CONDITION: Stable SCRIBED BY: Von HUMMEL scribed while in presence of service performed by Dr. Mart/Cary Xavier APRN on 05/30/17 ([id number])
[2017-05-30] MEDS ORDERED: VANCOMYCIN 1 GM in SODIUM CHLORIDE 250 ML IV STA (13:23)
--- NOTE | 2017-05-30 15:30 | RS.OTINEVL ---
Subjective - Patient information Date of Evaluation: 05/30/17 Date of Arrival on Unit: 05/28/17 Admitted From:: Home Usual Living Arrangement: With Spouse Living Arrangement Comments: Pt lives at home with his in a 3 level house. Pt goes up all stairs in his home. Home Environment: House, Stairs (many), Rail Medical History: Hypertension, COPD, Diabetes, Arthritis Medical History Comments:: back pain, DVT LATEX ALLERGY?: No Surgical History: Knee Replacement, Cholecystectomy, CABG Surgical History Comments:: hernia repair x 3 Subjective Information/ Patient Comments:: "I have no pain." "I get short of breath. I am supposed to be on 2 liters." - Level of function Prior to this admission, the patient could do the following:: Independent Selfcare, Independent ADL's, Independent Ambulation, Drive, Participated in Social Activities Outside home, Volunteer/Work Abilities prior to this admission: Pt living in his home and independent with ADLS prior to admission. Current Level of Function: Partially Dependent Current Equipment Used at Home: oxygen, walker, cane Pain Assessment - Pain Pain Score: 0 Interventions - Objective Patient Orientation: Person, Place, Time, Situation Current Interventions: IV's, Oxygen, Telemetry Observation: Pt has edema of BLE. Pt has a left foot injury that has disfigured his foot. Interventions - ROM Right Upper Extremity AROM: Slight limitation Left Upper Extremity AROM: Slight limitation - Strength Right Upper Extremity Strength: Mild Weakness Left Upper Extremity Strength: Mild Weakness - Sensation Right Upper Extremity Sensation: Intact/Normal Left Upper Extremity Sensation: Intact/Normal Balance - Sitting Balance Static Sitting Balance: Fair Dynamic Sitting Balance: Fair - Standing Balance Static Standing Balance: Fair Dynamic Standing Balance: Fair - Comments Balance Assessment Comments: Pt uses a cane and a rolling walker. At home he uses a cane. ADL Skills - Self Feeding Self Feeding: Independent - Grooming Grooming: CGA - Bathing Bathing UE: CGA Bathing LE: CGA - Dressing Dressing UE: CGA Dressing LE: CGA - Toilet Management Toileting Management: CGA Functional Mobility - Bed Mobility Rolling R/L: Independent Scooting: Independent Supine to Sit: Supervision Sit to Supine: Min Assist - Transfers Sit to Stand: CGA Stand to Sit: [facility] Stand Pivot Transfers: CGA - Ambulation Weight Bearing Status: FWB Assistive Device Used: Straight Cane Assistance needed with Ambulation: CGA - Safety Awareness Safety Awareness: Fair Additional Treatment Performed - Additional units charged ADL: 16 - Time with patient Total treatment time: 27 Activities Patient Interests:: Watching Television, Visiting/Socializing Patient Education Patient Education: Education of diagnosis, Home Exercise Program, Home Safety, Education of Plan of Care Teaching Recipient: Patient Teaching Methods: Discussion Assessment Problem List:: Decreased level of function, Requires training/education, Decreased safety/Risk of falls, Weakness, Pain limits previous level of function Rehab Potential: Good Further Therapy Indicated?: Yes Short Term Goals - Goals GOAL 1: Pt to increase BUE shoulder flexion AROM to be WFL. Goal to be met by: 06/02/17 GOAL 2: Pt to increase BUE strength to 4/5. Goal to be met by: 06/02/17 GOAL 3: Pt to be independent with Home Exercise program. Goal to be met by: 06/02/17 Bulb Grader Goals GOAL 1: Pt to increase BUE shoulder flexion AROM to be WNL. Goal to be met by: 06/06/17 GOAL 2: Pt to increase BUE strength to 4+/5. Goal to be met by: 06/06/17 GOAL 3: Pt to be independent with Home Exercise program. Goal to be met by: 06/06/17 Plan Plan of Care: Therapeutic EX, Neuromuscular Re-Educ, Therapeutic Activity, Self- Care/Home Management Frequency of Treatment: 1-2 X day, as tolerated Duration of Treatment: 2 Weeks Anticipated Discharge Destination: Home
--- NOTE | 2017-05-30 15:45 | HP ---
DATE OF SERVICE: 05/28/17 REASON FOR HOSPITALIZATION/HISTORY OF PRESENT ILLNESS: This is an 82 year old white male who presented to the emergency room with severe shortness of breath. He on Monday stated that he had had low grade fever and chills the night before.He was not having any chest pain. he does have a history of pulmonary fibrosis and has a history of acute respiratory failure resulting in intubation and ventilation. He was examined in the emergency room and then admitted. PAST MEDICAL HISTORY: Hypertrophy cardiomyopathy Acute respiratory failure Pulmonary fibrosis with seronegative rheumatoid arthritis Hypertension Diabetes Mellitus type 2 Chronic leg edema Chronic lung disease Coronary artery disease Hypothyroidism PAST SURGICAL HISTORY: Hernia repair REVIEW OF SYSTEMS: CONSTITUTIONAL: No night sweats. Malaise. Fever and chills. HEENT: Eyes: No visual changes. No eye pain. No eye discharge. ENT: No runny nose. No epistaxis. No sinus pain. No sore throat. No odynophagia. No ear pain. No congestion. RESPIRATORY: No cough, no congestion. No hemoptysis. Shortness of breath. CARDIOVASCULAR: No angina symptoms. No CHF symptoms. No atypical chest pain for CAD. No palpitations. No orthopnea. GASTROINTESTINAL: No abdominal pain. No nausea or vomiting. No diarrhea or constipation. No hematemesis. No hematochezia. GENITOURINARY: No urgency. No frequency. No dysuria. No hematuria. No obstructive symptoms. No discharge. No pain. No significant abnormal bleeding. MUSCULOSKELETAL: No musculoskeletal pain. No joint swelling. No arthritis. Weakness. NEUROLOGICAL: No headache. No neck pain. No syncope. No seizures. No dizziness. Alert and oriented. PSYCHIATRIC: Not anxious. No depression. No suicidal thoughts. No homicidal thoughts. SKIN: No rash. No lesions. No wounds. ENDOCRINE: No unexplained weight loss. No weight gain. HEMATOLOGIC/LYMPHATIC: No anemia. No purpura. No petechiae. No prolonged or excessive bleeding. No palpable lymph nodes. PERSONAL/FAMILY/SOCIAL HISTORY: The patient is never smoker, he is and currently lives with his . He is retired. He denies any alcohol or illicit drug use. No pertinent family history. MEDICATIONS: Cymbalta 30mg daily Synthroid 125mcg daily Simvastatin 5mg at bedtime Ambien 5mg PRN Bumetanide 2mg daily Glimepiride 2mg twice a day ProAir inhaler as needed Dulera inhaler twice a day Clonidine 0.3mg three times a day [place] 7.5mg three times a day PRN Detrol LA 4mg daily Norvasc 10mg daily Aspirin 81mg daily Coreg 12.5mg twice a day Cozaar 100mg daily Potassium Chloride 20mcg daily Testosterone 75mg PRN ALLERGIES: No known allergies PHYSICAL EXAMINATION: GENERAL: The patient is ill appearing and well nourished. He is in moderate distress due to shortness of breath. VITAL SIGNS: Temperature 100.2, heart rate 90, respiratory 24, blood pressure 135/74, pulse ox 86%. HEENT: Head normocephalic, atraumatic. Eyes: Extraocular muscles are intact. Pupils are equal, round and reactive to light and accommodation. Ears: No lesions. Nose appeared normal. Throat: No exudate or erythema. NECK: Supple. No JVD, no carotid bruit. No lymphadenopathy or thyromegaly. LUNGS: Severely diminished bilaterally with scattered rhonchi. Airway patent. Breathing is mildly labored. Percussion note normal. Chest symmetrical. HEART: S1, S2, no S3. No murmurs, clicks or rubs. No cyanosis or clubbing. No ascites. Pulses: Dorsalis pedis and posterior tibial pulses +1 to +2 both sides. ABDOMEN: Soft. Nontender. Bowel sounds active times four quadrants. No CVA tenderness. No mass felt. EXTREMITIES: Trace bilateral lower extremity edema. Full range of motion of all extremities, equal. No calf tenderness or redness. Negative Homans sign. NEUROLOGIC: No focal deficit. Cranial nerves II through XII are grossly intact. No headache, no double vision or headache. The patient is alert and oriented times three. PSYCHIATRIC: the patient's affect and mood are both appropriate. SKIN: Dry. Clean. Intact. Turgor - normal. LYMPHATIC: No palpable lymph nodes/no lymphedema. MUSCULOSKELETAL: Normal joints with no swelling. Muscle tone is normal. RADIOLOGY: Chest x-ray revealed development of multifocal right lung pneumonia and small right pleural effusion. LABS: WBC 14.29, hgb 13.5, hct 43.8, plt count 208, sodium 143, potassium 3.7, chloride 107, BUN 24, creatinine 1.45, glucose 137, total bilirubin 1.36, AST 18 , ALT 14, Alkaline phosphatase 105, CK-MB 3.7, Troponin 0.02, BNP 177, total protein 6.9, Lactic acid 20.4, ABG O2 sat 74, pH 7.412, pCO2 35.7, pO2 39, bicarb 22.7, total CO2 24, base excess of -2 on room air. ASSESSMENT: 1. Right lower lobe pneumonia 2. Respiratory distress 3. Pulmonary fibrosis 4. Hypertension 5. Right pleural effusion 6. Diabetes mellitus type 2 PLAN: 1. Admit to special care unit 2. CBC and CMP daily 3. Routine telemetry orders 4. Repeat ABG's tomorrow on room air 5. Oxygen at 2-3 liters as needed 6. Solu-Cortef 125mg Q 6 hours 7. Rocephin 1 gram IV daily 8. Vancomycin 1 gram twice a day 9. Azithromycin 500mg IV daily times three days 10.Start Xopenex NEB treatments Q 6 hours 11.Sputum Culture 12.Blood cultures Will follow closely. TIME SPENT: More than 70 minutes. MTDD
[2017-05-30] MEDS: ASPIRIN EC PO SCH (20:35)
[2017-05-30] MEDS: ZOCOR PO SCH (20:35)
[2017-05-31 04:33] LABS: BASOPHILS % (AUTO) 0.1 % (0.0-3.0); HEMATOCRIT 34.3 % (42.0-52.0); HEMOGLOBIN 10.8 g/dl (14.0-18.0); LYMPHOCYTES # (AUTO) 0.4 K/uL (0.60-3.4); LYMPHOCYTES % (AUTO) 3.5 (10.0-50.0); MEAN CORPUSCULAR HEMOGLOBIN 22.8 pg (27.0-31.0); MEAN CORPUSCULAR HGB CONC 31.5 (31.8-35.4); MEAN CORPUSCULAR VOLUME 72.4 fl (80.0-94.0); MONOCYTES # (AUTO) 0.5 K/uL (0.4-2.0); MONOCYTES % (AUTO) 4.3 (0-10); NEUTROPHILS # (AUTO) 11.4 K/ul (2.0-6.9); NEUTROPHILS % (AUTO) 91.1; PLATELET COUNT 179 10^3/uL (140-440); RED BLOOD COUNT 4.74 10^6/ul (4.70-6.10); WHITE BLOOD COUNT 12.47 K/ul (4.2-10.2)
[2017-05-31] MEDS: XOPENEX 1.25 MG NEB SCH ×4 (05:00→22:10)
[2017-05-31 05:01] LABS: ALBUMIN 2.8 g/dL (3.4-5.0); ALBUMIN/GLOBULIN RATIO 0.88; ANION GAP 11.8; BILIRUBIN,TOTAL 0.82 mg/dL (0.00-1.20); BUN/CREATININE RATIO 27.15; CALCIUM 8.7 mg/dL (8.2-10.2); CREATININE 1.51 mg/dL (0.60-1.10); POTASSIUM 3.8 mmol/L (3.5-5.1)
[2017-05-31] MEDS: SYNTHROID PO SCH ×2 (05:46)
[2017-05-31] MEDS: HUMULIN R SUBCUT PRN ×4 (05:46→20:27)
[2017-05-31] MEDS: PRILOSEC PO SCH (05:46)
[2017-05-31] MEDS ORDERED: VANCOMYCIN 1 GM in SODIUM CHLORIDE 250 ML IV STA (08:21)
[2017-05-31] MEDS: ROCEPHIN 1 GM in SODIUM CHLORIDE 50 ML IV SCH (09:05)
[2017-05-31] MEDS: NORVASC PO SCH (09:06)
[2017-05-31] MEDS: COREG PO SCH ×2 (09:06→17:04)
[2017-05-31] MEDS: K-DUR PO SCH (09:06)
[2017-05-31] MEDS: CATAPRES PO SCH ×3 (09:06→20:21)
[2017-05-31] MEDS: CYMBALTA PO SCH (09:06)
[2017-05-31] MEDS: AMARYL PO SCH (09:06)
[2017-05-31] MEDS: DETROL LA PO SCH (09:06)
[2017-05-31] MEDS: PREDNISONE PO SCH ×3 (09:07→17:04)
[2017-05-31] MEDS: NON-FORMULARY MEDICATION (Mometasone/Formoterol [Dulera 200 Mcg/5 Mcg Inhaler] 2 PUFF) IH SCH ×2 (09:07→20:22)
[2017-05-31] MEDS: COZAAR PO SCH (09:07)
--- NOTE | 2017-05-31 09:58 | PCM.PROG ---
Attending Provider: ATTENDING PROVIDER: Dr. SPARKLE MART DATE OF SERVICE: 05/31/17 SUBJECTIVE: This 82 year old WHITE/ M was hospitalized 05/28/17. The patient is hospitalized with acute respiratory failure with p02 from 39 to 56 on room air, saturations close to 90% on room air. No symptoms of CHF. REVIEW OF SYSTEMS: CONSTITUTIONAL: No night sweats. No fatigue, malaise, lethargy. No fever or chills. HEENT: Eyes: No visual changes. No eye pain. No eye discharge. ENT: No runny nose. No epistaxis. No sinus pain. No odynophagia. No congestion. RESPIRATORY: Mild cough. No congestion. No hemoptysis. No shortness of breath. CARDIOVASCULAR: No angina symptoms. No CHF symptoms. No atypical chest pain for CAD. No palpitations. No orthopnea.. GASTROINTESTINAL: Appetite improved. No abdominal pain. No nausea or vomiting. No diarrhea or constipation. No hematemesis. No hematochezia. GENITOURINARY: No urgency. No frequency. No dysuria. No hematuria. No obstructive symptoms. No discharge. No pain. No significant abnormal bleeding. MUSCULOSKELETAL: No musculoskeletal pain; no joint swelling. NEUROLOGICAL: Awake, alert, oriented to time, place and person. No headache. No neck pain. No syncope. No seizures. No dizziness. PSYCHIATRIC: Not anxious. No depression. No suicidal thoughts. No homicidal thoughts. SKIN: No rash. No lesions. No wounds. ENDOCRINE: No unexplained weight loss. No weight gain. HEMATOLOGIC/LYMPHATIC: No anemia. No purpura. No petechiae. No prolonged or excessive bleeding. No palpable lymph nodes. PHYSICAL EXAMINATION: GENERAL: The patient is awake, alert and oriented, lying in bed in no distress. VITAL SIGNS: Temperature 97.6 F, Pulse 73, Respiratory Rate 16, BP 120/72, Pulse Ox 97% HEENT: Head normocephalic, atraumatic. Eyes: Extraocular muscles are intact. Pupils are equal, round and reactive to light and accommodation. Ears: No lesions. Nose appeared normal. Throat: No exudate or erythema. NECK: Supple. No JVD, no carotid bruit. No lymphadenopathy or thyromegaly. LUNGS: Decreased breath sounds with dry creps both lungs. Percussion note normal. Chest symmetrical. HEART: S1, S2, no S3. No murmurs. No cyanosis or clubbing. No ascites. Pulses: Dorsalis pedis and posterior tibial pulses +1 to +2 both sides. ABDOMEN: Soft. Non-tender. Bowel sounds active. No CVA tenderness. No mass felt. EXTREMITIES: No edema. Full range of motion of all extremities, equal. NEUROLOGIC: No focal deficit. Cranial nerves II through XII are grossly intact. No headache, no double vision or headache. SKIN: Not dry. Intact. Turgor-normal. LYMPHATIC: No palpable lymph nodes/no lymphedema. MUSCULOSKELETAL: Normal joints with no swelling. Muscle tone is normal. LAB REVIEW: 05/31/17 04:28 05/31/17 04:28 05/31/17 04:28: Sodium 138, Potassium 3.8, Chloride 106, Carbon Dioxide 24, Anion Gap 11.8, BUN 41 H, Creatinine 1.51 H, Estimated GFR (MDRD) 44.00, BUN/ Creatinine Ratio 27.15, Glucose 293 H, Calcium 8.7, Total Bilirubin 0.82, AST 11 L, ALT 12, Alkaline Phosphatase 72, Total Protein 6.0, Albumin 2.8 L, Globulin 3.2, Albumin/Globulin Ratio 0.88 05/31/17 04:28: WBC 12.47 H, RBC 4.74, Hgb 10.8 L, Hct 34.3 L, MCV 72.4 L, MCH 22.8 L, MCHC 31.5 L, RDW Coeff of Marek 18.3 H, Plt Count 179, Immature Gran % ( Auto) 1.0, Neut % (Auto) 91.1, Lymph % (Auto) 3.5 L, [place] % (Auto) 4.3, Eos % ( Auto) 0.0, Baso % (Auto) 0.1, Immature Gran # (Auto) 0.1, Neut # 11.4 H, Lymph # 0.4 L, [place] # 0.5, Eos # 0.0, Baso # 0.0 ASSESSMENT: 1. Hyperglycemia noted from steroid use and besides he is diabetic on sliding scale 2. Pneumonia/Respiratory failure/Chronic lung disease on basis of rheumatoid arthritis 3. Generalized osteoarthritis and rheumatoid arthritis 4. Hypertension 5. Diabetes mellitus 6. Dependent leg edema 7. Anemia 8. Chronic kidney disease PLAN: 1. BUN and creatinine rising, will discontinue Bumex for now. 2. Continue oral Prednisone. 3. Antibiotics, will give 1 gm Vancomycin today. 4. Continue Rocephin. 5. The patient should be up and about. 6. Chest x-ray pending. 7. Echocardiogram to be done. Plan and coordination of the patient's care discussed in the presence of Mail Sorting Supervisor and nurse. CONDITION: Stable SCRIBED BY: HARRY VERA Open Winder scribed while in presence of service performed by Dr. SPARKLE MART on 05/31/17 ([id number])
--- NOTE | 2017-05-31 10:45 | DI ---
EXAM: Two views of the chest. History: Follow-up pneumonia Comparison: Chest radiograph 05/28/2017 Findings: Heart size is stable. Atherosclerotic vascular calcifications. Persistent but significan tly improving right lung infiltrates. No pneumothorax. Visualized osseous structures unchanged. Impression: Persistent but significantly improving right lung pneumonia.
--- NOTE | 2017-05-31 13:42 | PN ---
DATE OF SERVICE: 05/29/17 SUBJECTIVE: 82 year old white male hospitalized with acute respiratory failure and pneumonia. The patient's condition has improved remarkably. REVIEW OF SYSTEMS: CONSTITUTIONAL: No night sweats. No fatigue, malaise, lethargy. No fever or chills. Feeling a lot better. HEENT: Eyes: No visual changes. No eye pain. No eye discharge. ENT: No runny nose. No epistaxis. No sinus pain. No sore throat. No odynophagia. No congestion. RESPIRATORY: No cough, no congestion. No hemoptysis. No shortness of breath. CARDIOVASCULAR: No angina symptoms. No CHF symptoms. No atypical chest pain for CAD. No palpitations. No orthopnea. No PND. GASTROINTESTINAL: No abdominal pain. No nausea or vomiting. No diarrhea or constipation. No hematemesis. No hematochezia. Appetite has improved. GENITOURINARY: No urgency. No frequency. No dysuria. No hematuria. No obstructive symptoms. No discharge. No pain. No significant abnormal bleeding. MUSCULOSKELETAL: No musculoskeletal pain; no joint swelling. NEUROLOGICAL: No headache. No neck pain. No syncope. No seizures. No dizziness. PSYCHIATRIC: Not anxious. No depression. No suicidal thoughts. No homicidal thoughts. SKIN: No rash. No lesions. No wounds. ENDOCRINE: No unexplained weight loss. No weight gain. HEMATOLOGIC/LYMPHATIC: No anemia. No purpura. No petechiae. No prolonged or excessive bleeding. No palpable lymph nodes. PHYSICAL EXAMINATION: HEENT: Head normocephalic, atraumatic. Eyes: Extraocular muscles are intact. Pupils are equal, round and reactive to light and accommodation. Ears: No lesions. Nose appeared normal. Throat: No exudate or erythema. NECK: Supple. No JVD, no carotid bruit. No lymphadenopathy or thyromegaly. LUNGS: More air entry with dry crepitations. Percussion note normal. Chest symmetrical. HEART: S1, S2, no S3. No murmurs. No cyanosis or clubbing. No ascites. Pulses: Dorsalis pedis and posterior tibial pulses +1 to +2 both sides. ABDOMEN: Soft. Nontender. Bowel sounds active. No CVA tenderness. No mass felt. EXTREMITIES: No edema. Full range of motion of all extremities, equal. NEUROLOGIC: No focal deficit. Cranial nerves II through XII are grossly intact. No headache, no double vision or headache. SKIN: Not dry. Intact. Turgor - normal. LYMPHATIC: No palpable lymph nodes/no lymphedema. MUSCULOSKELETAL: Normal joints with no swelling. Muscle tone is normal. LABS: Blood gases on room air; pO2 56, pCO2 35, normal pH with saturation 89% which has improved remarkably from oxygen saturation on room air being 75% on admission. PLAN: 1. Continue Steroids, side effects of steroids discussed 2. Continue antibiotics Vancomycin, Rocephin and Zithromax 3. Continue NEBS treatment The patient's is in the room. The patient was seen and examined with the Nurse Practitioner. TIME SPENT: More than 30 minutes. Plan and coordination of the patient's care discussed in the presence of nurse. MATTHEW
[2017-05-31] MEDS: ZOCOR PO SCH (20:20)
[2017-05-31] MEDS: ASPIRIN EC PO SCH (20:20)
[2017-05-31] MEDS: AMBIEN PO PRN (20:26)
[2017-06-01 04:39] LABS: BASOPHILS % (AUTO) 0.2 % (0.0-3.0); HEMATOCRIT 35.8 % (42.0-52.0); HEMOGLOBIN 11.2 g/dl (14.0-18.0); IMMATURE GRANULOCYTE % (AUTO) 1.1 % (0.0-5.0); LYMPHOCYTES # (AUTO) 0.7 K/uL (0.60-3.4); LYMPHOCYTES % (AUTO) 5.4 (10.0-50.0); MEAN CORPUSCULAR HEMOGLOBIN 22.8 pg (27.0-31.0); MEAN CORPUSCULAR HGB CONC 31.3 (31.8-35.4); MEAN CORPUSCULAR VOLUME 72.8 fl (80.0-94.0); MONOCYTES # (AUTO) 0.9 K/uL (0.4-2.0); NEUTROPHILS # (AUTO) 10.6 K/ul (2.0-6.9); NEUTROPHILS % (AUTO) 86.3; PLATELET COUNT 181 10^3/uL (140-440); RED BLOOD COUNT 4.92 10^6/ul (4.70-6.10); WHITE BLOOD COUNT 12.22 K/ul (4.2-10.2)
[2017-06-01] MEDS: XOPENEX 1.25 MG NEB SCH ×4 (04:53→22:05)
[2017-06-01 04:59] LABS: ALBUMIN 2.7 g/dL (3.4-5.0); ALBUMIN/GLOBULIN RATIO 0.9; ANION GAP 10.2; BILIRUBIN,TOTAL 0.95 mg/dL (0.00-1.20); BUN/CREATININE RATIO 24.8; CALCIUM 8.6 mg/dL (8.2-10.2); CREATININE 1.29 mg/dL (0.60-1.10); POTASSIUM 4.2 mmol/L (3.5-5.1); TOTAL PROTEIN 5.7 g/dL (5.8-8.1)
[2017-06-01] MEDS: PRILOSEC PO SCH (05:32)
[2017-06-01] MEDS: HUMULIN R SUBCUT PRN ×4 (05:32→20:10)
[2017-06-01] MEDS: SYNTHROID PO SCH ×2 (05:33)
[2017-06-01] MEDS: PREDNISONE PO SCH ×3 (08:50→16:56)
[2017-06-01] MEDS: CATAPRES PO SCH ×3 (08:51→20:05)
[2017-06-01] MEDS: AMARYL PO SCH (08:51)
[2017-06-01] MEDS: COREG PO SCH ×2 (08:51→16:56)
[2017-06-01] MEDS: COZAAR PO SCH (08:52)
[2017-06-01] MEDS: CYMBALTA PO SCH (08:52)
[2017-06-01] MEDS: K-DUR PO SCH (08:52)
[2017-06-01] MEDS: NON-FORMULARY MEDICATION (Mometasone/Formoterol [Dulera 200 Mcg/5 Mcg Inhaler] 2 PUFF) IH SCH ×2 (08:52→20:09)
[2017-06-01] MEDS: DETROL LA PO SCH (08:52)
[2017-06-01] MEDS: NORVASC PO SCH (08:52)
[2017-06-01] MEDS: ROCEPHIN 1 GM in SODIUM CHLORIDE 50 ML IV SCH (08:53)
[2017-06-01] MEDS ORDERED: BUMEX PO SCH (09:00)
--- NOTE | 2017-06-01 09:41 | PCM.PROG ---
Attending Provider: ATTENDING PROVIDER: Dr. SPARKLE MART This patient is seen with Cary Xavier, Nurse Practitioner. DATE OF SERVICE: 06/01/17 SUBJECTIVE: This 82 year old WHITE/ M was hospitalized 05/28/17. The patient is resting comfortably, is alert. He has been up walking. REVIEW OF SYSTEMS: CONSTITUTIONAL: Fatigue. No night sweats. No fever or chills. HEENT: Eyes: No visual changes. No eye pain. No eye discharge. ENT: No runny nose. No epistaxis. No sinus pain. No odynophagia. No congestion. RESPIRATORY: No cough, no congestion. No hemoptysis. Mild shortness of breath. CARDIOVASCULAR: No angina symptoms. No CHF symptoms. No atypical chest pain for CAD. No palpitations. No orthopnea.. GASTROINTESTINAL: No abdominal pain. No nausea or vomiting. No diarrhea or constipation. No hematemesis. No hematochezia. GENITOURINARY: No urgency. No frequency. No dysuria. No hematuria. No obstructive symptoms. No discharge. No pain. No significant abnormal bleeding. MUSCULOSKELETAL: No musculoskeletal pain; no joint swelling. NEUROLOGICAL: Awake, alert, oriented to time, place and person. No headache. No neck pain. No syncope. No seizures. No dizziness. PSYCHIATRIC: Not anxious. No depression. No suicidal thoughts. No homicidal thoughts. SKIN: No rash. No lesions. No wounds. ENDOCRINE: No unexplained weight loss. No weight gain. HEMATOLOGIC/LYMPHATIC: No anemia. No purpura. No petechiae. No prolonged or excessive bleeding. No palpable lymph nodes. PHYSICAL EXAMINATION: GENERAL: The patient is awake, alert and oriented, lying in bed in no distress. VITAL SIGNS: Temperature 97.4 F, Pulse 62, Respiratory Rate 20, BP 114/65, Pulse Ox 91% HEENT: Head normocephalic, atraumatic. Eyes: Extraocular muscles are intact. Pupils are equal, round and reactive to light and accommodation. Ears: No lesions. Nose appeared normal. Throat: No exudate or erythema. NECK: Supple. No JVD, no carotid bruit. No lymphadenopathy or thyromegaly. LUNGS: Severely diminished breath sounds bilaterally. Crackles on the right. Percussion note normal. Chest symmetrical. HEART: S1, S2, no S3. No murmurs. No cyanosis or clubbing. No ascites. Pulses: Dorsalis pedis and posterior tibial pulses +1 to +2 both sides. ABDOMEN: Soft. Non-tender. Bowel sounds active. No CVA tenderness. No mass felt. EXTREMITIES: 1+ edema bilateral lower extremities. Full range of motion of all extremities, equal. NEUROLOGIC: No focal deficit. Cranial nerves II through XII are grossly intact. No headache, no double vision or headache. SKIN: Not dry. Intact. Turgor-normal. LYMPHATIC: No palpable lymph nodes/no lymphedema. MUSCULOSKELETAL: Normal joints with no swelling. Muscle tone is normal. LAB REVIEW: 06/01/17 04:35 06/01/17 04:35 06/01/17 04:35: Sodium 139, Potassium 4.2, Chloride 107, Carbon Dioxide 26, Anion Gap 10.2, BUN 32 H, Creatinine 1.29 H, Estimated GFR (MDRD) 53.00, BUN/ Creatinine Ratio 24.80, Glucose 194 H, Calcium 8.6, Total Bilirubin 0.95, AST 14 L, ALT 18, Alkaline Phosphatase 70, Total Protein 5.7 L, Albumin 2.7 L, Globulin 3.0, Albumin/Globulin Ratio 0.90 06/01/17 04:35: WBC 12.22 H, RBC 4.92, Hgb 11.2 L, Hct 35.8 L, MCV 72.8 L, MCH 22.8 L, MCHC 31.3 L, RDW Coeff of Marek 18.6 H, Plt Count 181, Immature Gran % ( Auto) 1.1, Neut % (Auto) 86.3, Lymph % (Auto) 5.4 L, [place] % (Auto) 7.0, Eos % ( Auto) 0.0, Baso % (Auto) 0.2, Immature Gran # (Auto) 0.1, Neut # 10.6 H, Lymph # 0.7, [place] # 0.9, Eos # 0.0, Baso # 0.0 ASSESSMENT: 1. Hyperglycemia noted from steroid use and besides he is diabetic on sliding scale 2. Pneumonia/Respiratory failure/Chronic lung disease on basis of rheumatoid arthritis 3. Generalized osteoarthritis and rheumatoid arthritis 4. Hypertension 5. Diabetes mellitus 6. Dependent leg edema 7. Anemia 8. Chronic kidney disease PLAN: 1. Bumex today and every other day 2. Prednisone b.i.d. 3. Up and about as tolerated Plan and coordination of the patient's care discussed in the presence of Boat Operator and nurse. CONDITION: Stable SCRIBED BY: Haile HUMMEList scribed while in presence of service performed by Dr. Mart/Cary Xavier APRN on 06/01/17 ([id number])
[2017-06-01] MEDS: VANCOMYCIN 1 GM in SODIUM CHLORIDE 250 ML IV SCH (10:37)
--- NOTE | 2017-06-01 10:57 | ECHO2D ---
Date of Exam: 05/31/17 Ordering Physician: SPARKLE MART Room #: SCU 1 Reason for Echo: SOB, HYPERTENSION, LEG EDEMA M-Mode Normal Adult Results LV Dimensions Normal Adult Results AoV Opening excursions >1.6 >1.6 LVEDD-base- 3.5-5.8 5.0 Ao root dimensions 2.0-3.7 3.6 LVESD-base- 3.1-4.6 L. Atrium dimensions 1.9-3.8 5.1 Post. Wall thickness 0.8-1.1 1.3 IV septum (thickness) 0.7-1.2 1.3 Post. Wall excursion 0.72-1.3 NORMAL Septal motion NORMAL Systolic motion R. Ventricular cavity 1.5-2.0 NORMAL LVEF 60% 60% Paradoxical septal wall motion NORMAL 2-D : ENLARGED LEFT ATRIAL CAVITY, NORMAL LEFT VENTRICULAR CONTRACTILITY, NO EFFUSION, NO THROMBUS, NORMAL LEFT VENTRICLE SIZE M-MODE: MV: NORMAL AV: NORMAL TV: NORMAL PV: CHAMBER SIZE: ENLARGED LEFT ATRIAL CAVITY WALL MOTION: NORMAL PERICARDIUM: NORMAL INTERPRETATION: 1. LEFT VENTRICULAR HYPERTROPHY WITH ENLARGED LEFT ATRIAL CAVITY 2. NORMAL LEFT VENTRICULAR CONTRACTILITY WITH EJECTION FRACTION 60% 3. NORMAL VALVES MTDD
[2017-06-01] MEDS ORDERED: PREDNISONE PO SCH (17:30)
[2017-06-01] MEDS: ZOCOR PO SCH (20:04)
[2017-06-01] MEDS: ASPIRIN EC PO SCH (20:08)
[2017-06-02] MEDS: XOPENEX 1.25 MG NEB SCH ×2 (04:53→11:21)
[2017-06-02 05:09] LABS: BASOPHILS % (AUTO) 0.3 % (0.0-3.0); HEMATOCRIT 38.4 % (42.0-52.0); HEMOGLOBIN 11.9 g/dl (14.0-18.0); IMMATURE GRANULOCYTE % (AUTO) 1.5 % (0.0-5.0); LYMPHOCYTES # (AUTO) 0.7 K/uL (0.60-3.4); LYMPHOCYTES % (AUTO) 7.4 (10.0-50.0); MEAN CORPUSCULAR HEMOGLOBIN 22.4 pg (27.0-31.0); MEAN CORPUSCULAR VOLUME 72.2 fl (80.0-94.0); MONOCYTES # (AUTO) 0.8 K/uL (0.4-2.0); MONOCYTES % (AUTO) 8.2 (0-10); NEUTROPHILS # (AUTO) 8.2 K/ul (2.0-6.9); NEUTROPHILS % (AUTO) 82.6; PLATELET COUNT 179 10^3/uL (140-440); RED BLOOD COUNT 5.32 10^6/ul (4.70-6.10); WHITE BLOOD COUNT 9.93 K/ul (4.2-10.2)
[2017-06-02 05:30] LABS: ALBUMIN 2.8 g/dL (3.4-5.0); ALBUMIN/GLOBULIN RATIO 0.85; BILIRUBIN,TOTAL 1.02 mg/dL (0.00-1.20); BUN/CREATININE RATIO 24.61; CALCIUM 8.6 mg/dL (8.2-10.2); CREATININE 1.3 mg/dL (0.60-1.10); TOTAL PROTEIN 6.1 g/dL (5.8-8.1)
[2017-06-02] MEDS: PRILOSEC PO SCH (05:59)
[2017-06-02] MEDS: HUMULIN R SUBCUT PRN ×2 (05:59→12:03)
[2017-06-02] MEDS: SYNTHROID PO SCH ×2 (05:59)
[2017-06-02] MEDS ORDERED: MILK OF MAGNESIA PO STA (08:04)
[2017-06-02] MEDS: NORVASC PO SCH (08:36)
[2017-06-02] MEDS: DETROL LA PO SCH (08:36)
[2017-06-02] MEDS: AMARYL PO SCH (08:37)
[2017-06-02] MEDS: CYMBALTA PO SCH (08:37)
[2017-06-02] MEDS: K-DUR PO SCH (08:37)
[2017-06-02] MEDS: CATAPRES PO SCH (08:38)
[2017-06-02] MEDS: PREDNISONE PO SCH (08:38)
[2017-06-02] MEDS: COREG PO SCH (08:38)
[2017-06-02] MEDS: NON-FORMULARY MEDICATION (Mometasone/Formoterol [Dulera 200 Mcg/5 Mcg Inhaler] 2 PUFF) IH SCH (08:39)
[2017-06-02] MEDS: COZAAR PO SCH (08:39)
[2017-06-02] MEDS: ROCEPHIN 1 GM in SODIUM CHLORIDE 50 ML IV SCH (08:40)
[2017-06-02] MEDS ORDERED: BUMEX PO SCH (09:00)
[2017-06-02] MEDS: VANCOMYCIN 1 GM in SODIUM CHLORIDE 250 ML IV SCH (09:45)
--- NOTE | 2017-06-02 10:21 | PCM.PROG ---
Attending Provider: ATTENDING PROVIDER: Dr. SPARKLE MART This patient is seen with Cary Xavier, Nurse Practitioner. DATE OF SERVICE: 06/02/17 SUBJECTIVE: This 82 year old WHITE/ M was hospitalized 05/28/17. The patient is alert, lying in bed. feeling better. He would like to go home today. He has been up and about and eating well. REVIEW OF SYSTEMS: CONSTITUTIONAL: Fatigue. No night sweats. No fever or chills. HEENT: Eyes: No visual changes. No eye pain. No eye discharge. ENT: No runny nose. No epistaxis. No sinus pain. No odynophagia. No congestion. RESPIRATORY: No cough, no congestion. No hemoptysis. No shortness of breath. CARDIOVASCULAR: No angina symptoms. No CHF symptoms. No atypical chest pain for CAD. No palpitations. No orthopnea.. GASTROINTESTINAL: No abdominal pain. No nausea or vomiting. No diarrhea or constipation. No hematemesis. No hematochezia. GENITOURINARY: No urgency. No frequency. No dysuria. No hematuria. No obstructive symptoms. No discharge. No pain. No significant abnormal bleeding. MUSCULOSKELETAL: No musculoskeletal pain; no joint swelling. NEUROLOGICAL: Awake, alert, oriented to time, place and person. No headache. No neck pain. No syncope. No seizures. No dizziness. PSYCHIATRIC: Not anxious. No depression. No suicidal thoughts. No homicidal thoughts. SKIN: No rash. No lesions. No wounds. ENDOCRINE: No unexplained weight loss. No weight gain. HEMATOLOGIC/LYMPHATIC: No anemia. No purpura. No petechiae. No prolonged or excessive bleeding. No palpable lymph nodes. PHYSICAL EXAMINATION: GENERAL: The patient is awake, alert and oriented, lying in bed in no distress. VITAL SIGNS: Temperature 97.3 F, Pulse 69, Respiratory Rate 16, BP 155/87, Pulse Ox 96% HEENT: Head normocephalic, atraumatic. Eyes: Extraocular muscles are intact. Pupils are equal, round and reactive to light and accommodation. Ears: No lesions. Nose appeared normal. Throat: No exudate or erythema. NECK: Supple. No JVD, no carotid bruit. No lymphadenopathy or thyromegaly. LUNGS: Diminished breath sounds bilaterally. Clear to auscultation. Percussion note normal. Chest symmetrical. HEART: S1, S2, no S3. No murmurs. No cyanosis or clubbing. No ascites. Pulses: Dorsalis pedis and posterior tibial pulses +1 to +2 both sides. ABDOMEN: Soft. Non-tender. Bowel sounds active. No CVA tenderness. No mass felt. EXTREMITIES: Trace lower extremity edema. Full range of motion of all extremities, equal. NEUROLOGIC: No focal deficit. Cranial nerves II through XII are grossly intact. No headache, no double vision or headache. SKIN: Not dry. Intact. Turgor-normal. LYMPHATIC: No palpable lymph nodes/no lymphedema. MUSCULOSKELETAL: Normal joints with no swelling. Muscle tone is normal. LAB REVIEW: 06/02/17 05:00 06/02/17 05:00 06/02/17 05:00: Sodium 139, Potassium 4.0, Chloride 102, Carbon Dioxide 28, Anion Gap 13.0, BUN 32 H, Creatinine 1.30 H, Estimated GFR (MDRD) 53.00, BUN/ Creatinine Ratio 24.61, Glucose 260 H, Calcium 8.6, Total Bilirubin 1.02, AST 22 , ALT 36, Alkaline Phosphatase 75, Total Protein 6.1, Albumin 2.8 L, Globulin 3.3, Albumin/Globulin Ratio 0.85 06/02/17 05:00: WBC 9.93, RBC 5.32, Hgb 11.9 L, Hct 38.4 L, MCV 72.2 L, MCH 22.4 L, MCHC 31.0 L, RDW Coeff of Marek 18.6 H, Plt Count 179, Immature Gran % ( Auto) 1.5, Neut % (Auto) 82.6, Lymph % (Auto) 7.4 L, [place] % (Auto) 8.2, Eos % ( Auto) 0.0, Baso % (Auto) 0.3, Immature Gran # (Auto) 0.2, Neut # 8.2 H, Lymph # 0.7, [place] # 0.8, Eos # 0.0, Baso # 0.0 ASSESSMENT: 1. Hyperglycemia noted from steroid use and besides he is diabetic on sliding scale 2. Pneumonia/Respiratory failure/Chronic lung disease on basis of rheumatoid arthritis 3. Generalized osteoarthritis and rheumatoid arthritis 4. Hypertension 5. Diabetes mellitus 6. Dependent leg edema 7. Anemia 8. Chronic kidney disease PLAN: 1. D/C home after chest x-ray. 2. Keflex 500 mg t.i.d. for 5 days. 3. Prednisone 10 mg b.i.d. for 5 days. 4. Follow up with Cary Xavier APRN/Dr. Mart on Wednesday 06/06. 5. Will give one more dose of Vancomycin this morning as well as repeat chest x -ray. Plan and coordination of the patient's care discussed in the presence of Pipeline Maintenance Supervisor and nurse. CONDITION: Stable SCRIBED BY: HARRY VERA Desktop Support Associate scribed while in presence of service performed by Dr. Mart/Cary Xavier APRN on 06/02/17 ([id number])
[2017-06-02 10:42] VITALS: BP 110/61; TEMP 98
--- NOTE | 2017-06-02 10:47 | DI ---
EXAM: Two views of the chest. History: Follow-up pneumonia Comparison: Chest radiograph 05/31/2017 Findings: Heart size is stable. Atherosclerotic vascular calcifications. No pneumothorax. Visuali zed osseous structures unchanged. No significant interval change in the small right pleural effusion. The right lung infiltrates are less noticeable. No developing opacities. Impression: Persistent small right pleural effusion. The right lung infiltrates are slightly improv ing.
--- NOTE | 2017-06-02 11:24 | DS ---
DATE OF SERVICE: 06/02/17 FINAL DIAGNOSIS: 1. PNEUMONIA 2. HYPERTENSION 3. CHRONIC LUNG DISEASE, OXYGEN AT HOME 4. DEPENDENT LEG EDEMA 5. HYPOTHYROID 6. DIABETES MELLITUS, TYPE 2 7. DYSLIPIDEMIA 8. NEUROPATHY 9. ASBESTOS EXPOSURE 10. SEVERE OSTEOARTHRITIS 11. ERECTILE DYSFUNCTION 12. LUNG SURGERY 13. BILATERAL KNEE REPLACEMENT 14. INGUINAL HERNIA REPAIR 15. UMBILICAL HERNIA REPAIR DISCHARGE INSTRUCTIONS: Followup appointment is scheduled with Dr. Olivier on 06/06/17 at 11 a.m. Please call [phone] if you need to reschedule. MEDICATIONS AT DISCHARGE: Cymbalta 30 mg p.o. daily Synthroid 125 mcg p.o. daily Simvastatin 5 mg p.o. bedtime Zolpidem 5 mg p.o. p.r.n. Glimepiride 2 mg p.o. bo ly Bumetanide 2 mg p.o. daily ProAir HFA two puffs IH q.i.d. p.r.n. Mometasone/Formoterol two puff IH b.i.d. Triamcinolone one application TP b.i.d. p.r.n. Tolterodine (Detrol LA) 4 mg p.o. daily Hydrocodone/Acetaminophen 7.5 mg p.o. t.i.d. p.r.n. Clonidine (Catapres) 0.3 mg p.o. t.i.d. K-Dur 20 mEq p.o. daily Cozaar 100 mg p.o. daily Flucinonide one application TP p.r.n. Carvedilol (Coreg) 12.5 mg p.o. b.i.d. with meal Testosterone (Testopel) 75 mg [place] p.r.n. Aspirin 81 mg p.o. bedtime Norvasc 10 mg p.o. daily Prilosec 20 mg p.o. q.d a.c. NEW PRESCRIPTIONS: Keflex 500 mg take one three times daily for 5 days (antibiotic). Take first dose tonight. Prednisone 10 mg take one twice a day for 5 days (steroid). Take with food. Take first dose tonight. MEDICATION CHANGE: Decrease Clonidine (Catapres) to 0.2 mg three times a day DIET INSTRUCTIONS: Consistent carbohydrate ACTIVITY: Gradually resume as tolerated. Use walker for added stability. SMOKING: N/A DISEASE SPECIFIC EDUCATION: Medications, inhaler New prescriptions Follow up Diet HOSPITAL COURSE: This is an 82-year-old white male who was admitted to the Special Care Unit on Monday morning with right lower lobe pneumonia. 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 He also has a history of empyema with pneumonia infection. Upon admission, his 02 sat was in the 80s. He was admitted, placed on IV steroids, Solu-Cortef 125 mg q.6, Vancomycin 1 gm b.i.d., Zithromax 500 mg IV daily for 3 days along with Rocephin 1 gm IV daily. He does have some chronic kidney failure. He was slightly dehydrated on admission. His BUN got up into the 40s. Today, on day of discharge, it has improved. He was receiving IV fluids and we held his Bumex for one day. He does have a history of chronic leg edema. After holding his Bumex and giving IV fluids, elevating his legs, his BUN improved and is down to 30. Creatinine 1.3. This is normal for him. For the past two days he has been up and about walking. On Monday, a repeat chest x-ray was done which showed slightly improved but yet still persistent right lower lobe pneumonia so we kept him until today. Repeat chest x-ray was done this morning which showed improved pneumonia. The patient has been up and about walking for the past two days, eating 75 to 100% of his meals. He has been afebrile since day one. He had fever the first day of hospital stay and then has had none since with IV therapy of antibiotics. Today, before discharge, he will receive one last dose of Vancomycin. We will send him home on Keflex 500 mg by mouth three times a day for the next five days along with Prednisone 10 mg b.i.d. by mouth for the next five days. He is instructed to continue with increased rest and increased fluids. We will resume his Bumex due to chronic leg edema. His vital signs have significantly improved. Temperature 97.3 today, heart rate 69, respirations 16 , pulse ox 96% on 2L. He had previously been satting 89% on 3L. He is instructed to continue his medication along with his inhaler. His home medications have not been changed. Despite the pneumonia, he has not been experiencing any cough. We will follow him closely and will see him back in the office on Monday or Monday. He is discharged in stable condition. TIME SPENT: More than 60 minutes. MATTHEW
--- NOTE | 2017-06-02 12:39 | CM.DICTOOL ---
ADMISSION: 05/28/17 09:21 DISCHARGE: June 02, 2017 DATE OF SERVICE: 06/02/17 FINAL DIAGNOSIS Right lower lobe pneumonia Hypertension Chronic Lung Disease, Oxygen at home Pulmonary Fibrosis Dependent Leg Edema Hypothyroid Diabetes Mellitus, Type 2 Dyslipidemia Neuropathy Severe Osteoarthritis ED Lung Surgery Bilateral TKR Inguinal Hernia Repair Umbilical Hernia Repair Left Foot Surgery LAST VITALS Temp Pulse Resp BP Pulse Ox 98.0 F 61 18 110/61 98 06/02/17 10:00 06/02/17 10:00 06/02/17 10:00 06/02/17 10:00 06/02/17 10:00 ACTIVE MEDICATIONS Acetaminophen/Hydrocodone Bitart ([place] 7.5-325) 1 tab PO TID PRN PRN Reason: pain Albuterol Sulfate (Proair Hfa) 2 puff IH QID PRN PRN Reason: SOA Amlodipine Besylate (Norvasc) 10 mg PO DAILY [facility] Last Admin: 06/02/17 08:36 Dose: 10 mg Aspirin (Aspirin Ec) 81 mg PO BEDTIME [facility] Last Admin: 06/01/17 20:08 Dose: 81 mg Bumetanide (Bumex) 2 mg PO DAILY [facility] Last Admin: 06/02/17 08:38 Dose: 2 mg Carvedilol (Coreg) 12.5 mg PO BIDWM [facility] Last Admin: 06/02/17 08:38 Dose: 12.5 mg Clonidine (Catapres) 0.2 mg PO TID [facility] Last Admin: 06/02/17 08:38 Dose: 0.2 mg (dose decreased) Duloxetine HCl (Cymbalta) 30 mg PO DAILY [facility] Last Admin: 06/02/17 08:37 Dose: 30 mg Glimepiride (Amaryl) 2 mg PO DAILYWM [facility] Last Admin: 06/02/17 08:37 Dose: 2 mg Levothyroxine Sodium (Synthroid) 100 mcg PO QDAC [facility] Last Admin: 06/02/17 05:59 Dose: 100 mcg Levothyroxine Sodium (Synthroid) 25 mcg PO QDAC [facility] Last Admin: 06/02/17 05:59 Dose: 25 mcg Losartan Potassium (Cozaar) 100 mg PO DAILY [facility] Last Admin: 06/02/17 08:39 Dose: 100 mg Non-Formulary Medication (Fluocinonide) 1 applic TP PRN PRN PRN Reason: itching Non-Formulary Medication (Mometasone/Formoterol [Dulera 200 Mcg/5 Mcg Inhaler]) 2 puff IH BID [facility] Last Admin: 06/02/17 08:39 Dose: 2 puff Omeprazole (Prilosec) 20 mg PO QDAC [facility] Last Admin: 06/02/17 05:59 Dose: 20 mg Potassium Chloride (K-Dur) 20 meq PO DAILY [facility] Last Admin: 06/02/17 08:37 Dose: 20 meq Prednisone (Prednisone) 10 mg PO BIDWM [facility] Last Admin: 06/02/17 08:38 Dose: 10 mg Simvastatin (Zocor) 5 mg PO BEDTIME [facility] Last Admin: 06/01/17 20:04 Dose: 5 mg Tolterodine Tartrate (Detrol La) 4 mg PO DAILY [facility] Last Admin: 06/02/17 08:36 Dose: 4 mg Triamcinolone Acetonide (Kenalog 0.1%) 1 applic TP BID PRN PRN Reason: itching Zolpidem Tartrate (Ambien) 5 mg PO BEDTIME PRN PRN Reason: sleep Last Admin: 05/31/17 20:26 Dose: 5 mg ALLERGIES No Known Allergies Allergy (Verified 05/28/17 07:28) NEW PRESCRIPTIONS: Prednisone 10 mg BID for 5 days Keflex 500 mg TID for 5 days Clonidine 0.2 mg TID SMOKING: Not Applicable DISEASE SPECIFIC EDUCATION: Pneumonia Chronic Leg Edema Use of Steroids and risk of GI upset, bone demineralization Prescriptions LAB REVIEW: 06/02/17 05:00 06/02/17 05:00 06/02/17 05:00: Sodium 139, Potassium 4.0, Chloride 102, Carbon Dioxide 28, Anion Gap 13.0, BUN 32 H, Creatinine 1.30 H, Estimated GFR (MDRD) 53.00, BUN/ Creatinine Ratio 24.61, Glucose 260 H, Calcium 8.6, Total Bilirubin 1.02, AST 22 , ALT 36, Alkaline Phosphatase 75, Total Protein 6.1, Albumin 2.8 L, Globulin 3.3, Albumin/Globulin Ratio 0.85 06/02/17 05:00: WBC 9.93, RBC 5.32, Hgb 11.9 L, Hct 38.4 L, MCV 72.2 L, MCH 22.4 L, MCHC 31.0 L, RDW Coeff of Marek 18.6 H, Plt Count 179, Immature Gran % ( Auto) 1.5, Neut % (Auto) 82.6, Lymph % (Auto) 7.4 L, [place] % (Auto) 8.2, Eos % ( Auto) 0.0, Baso % (Auto) 0.3, Immature Gran # (Auto) 0.2, Neut # 8.2 H, Lymph # 0.7, [place] # 0.8, Eos # 0.0, Baso # 0.0 PLAN: Discharge home Diet: Consistent Carbohydrates Activity: Gradually Resume as tolerated Continue to check your blood sugars daily Continue home oxygen at 2 liters per cannula Medication change: Clonidine has been decreased to 0.2 mg TID Continue medications as listed on nursing discharge information sheet An appointment is scheduled on June 06 at [address] Olivier/Cary Xavier APRN Mr. Oneill is alert and oriented x 3. He is independent with activities of daily living. He is ambulatory with use of a cane most of the time. He uses a rolling walker at night and if he feels unsteady. He has been encouraged to use the walker during the day if tired. He is oxygen dependent and uses oxygen at 2 liters per nasal cannula. Pulmonary Rehab has been discussed with this patient. He expresses an interest in the program and will call when he is ready to start. Meal intakes are excellent at 100%. He is voiding without difficulty , but has not had a BM since his admission. No skin breakdown, rashes or irritation present. Luan Olivier MD Cary Xavier APRN
--- NOTE | 2017-06-02 16:01 | RS.OPPTDC ---
Date of Discharge: 06/02/17 Date of Evaluation: 05/07/15 Treatment Diagnosis: gait abnormality, peripheral neuropathy Current Level of Function: pt amb with cane with CGA x 1 with decreased step length and flexed posture. O2 sat decreases during amb Current Complaints/Gains: pt progressed with improved gait sequencing as well as balance Functional Outcome Measure - G Codes & Severity Modifier G Codes & Modifier: n/a Source of G Code score: n/a Observation - Observation Posture: Forward Head, Rounded Shoulders, Increased Thoracic Kyphosis Interventions - Exercise/Activities/Manual Therapy Exercises/Activities: 50 mins. total ,of exercises 3/10 all supine exercises with 4# resistance for SAQ's,heelslides ,hip abd /add.SLR's Ankle pumps using3/ 15 with red theraband.Seated LAQ's with 4#,3/10 each LE. Manual Therapy: Na HOME EXERCISE PROGRAM: Ankle pumps,heelslides, SAQ,hip abd /add,isometrics. for both LE's.Heelcord stretches.Standing LE AROM as tolerated holding to kitchen sink and chair behind him for safety. - Charges Total Direct Minutes: n/a Total Treatment Time: n/a Procedures billed for this date of service:: n/a Short Term Goals Goal #1: Independent with bed mobility Progress towards Goal:: Progressing Goal #2: sup to/from sit to/from stand SBA Progress towards Goal:: Progressing Goal #3: amb with rwx 100ft SBA Progress towards Goal:: Progressing Mcc Goals Goal #4: Patient will discharge straight cane. Goal to be met by: 07/16/15 Plan Comments: in home with home health
== END 2017-06-02 13:30 | disposition home or self-care (01) | DRG 193 ==
LOC: ED 07:20 → SCU 09:21
PROVIDERS: ADMIT Internal Medicine; ATTEND Internal Medicine
DX: J18.9 Pneumonia, unspecified organism (principal); J96.00 Acute respiratory failure, unspecified whether with hypoxia or hypercapnia; J91.8 Pleural effusion in other conditions classified elsewhere; I42.2 Other hypertrophic cardiomyopathy; R06.02 Shortness of breath; I10 Essential (primary) hypertension; J44.9 Chronic obstructive pulmonary disease, unspecified; R50.9 Fever, unspecified; E11.9 Type 2 diabetes mellitus without complications; N18.9 Chronic kidney disease, unspecified; J84.10 Pulmonary fibrosis, unspecified; D64.9 Anemia, unspecified; R60.0 Localized edema; E03.9 Hypothyroidism, unspecified; E78.5 Hyperlipidemia, unspecified; G62.9 Polyneuropathy, unspecified; M19.90 Unspecified osteoarthritis, unspecified site; M06.9 Rheumatoid arthritis, unspecified; N52.9 Male erectile dysfunction, unspecified; Z77.090 Contact with and (suspected) exposure to asbestos; Z99.81 Dependence on supplemental oxygen; Z86.718 Personal history of other venous thrombosis and embolism; Z98.890 Other specified postprocedural states; Z79.899 Other long term (current) drug therapy
CPT/HCPCS: 36415; 80053; 81001; 82550; 82553; 82803; 82962; 83605; 83880; 84484; 85025; 85379; 87040; 87081; 93005; 93010; 94640; 96365; 96375; 99285

== ENCOUNTER 2017-07-05 09:29 | Outpatient (CLI) ==
[2013-01-17 20:59] VITALS: TEMP 97.5
== END 2017-07-05 09:30 | disposition home or self-care (01) ==
LOC: WOUND 09:29
PROVIDERS: ATTEND Nurse Practitioner Family
DX: L89.153 Pressure ulcer of sacral region, stage 3 (principal); I10 Essential (primary) hypertension; E11.9 Type 2 diabetes mellitus without complications
CPT/HCPCS: 87070; 87186

== ENCOUNTER 2017-07-12 08:21 | Inpatient (IN) ==
--- NOTE | 2017-07-12 08:28 | ED.PDOC ---
General ED Provider: Dr. ARNOLD RING JR Chief Complaint: Shortness of Air Stated Complaint: SOA this am at 0330 O2 at night at 2L sat at 81 progressively worse at home alert on arrival dyspnea noted able to converse edema to feet/ ankles color good [ End ]100.0 84 18 81% 148/80 10 Time Seen by Physician: 08:32 Mode of Arrival: Walk-In Information Source: Patient Exam Limitations: No limitations Primary Care Provider: SPARKLE MART Nursing and Triage Documentation Reviewed and Agree: No Review of Systems - Review Of Systems Constitutional: Reports: Malaise, Weakness (feel weak as a kitten) Eyes: Reports: No symptoms Ears, Nose, Mouth, Throat: Reports: No symptoms Respiratory: Reports: Short of air, Wheezing Cardiac: Reports: Edema GI: Reports: No symptoms : Reports: No symptoms Musculoskeletal: Reports: No symptoms Skin: Reports: No symptoms, Change in color (flushed per RN) Neurological: Reports: No symptoms Endocrine: Reports: No symptoms Hematologic/Lymphatic: Reports: No symptoms All Other Systems: Other Past Medical History - Past Medical History Previously Healthy: No Endocrine: Reports: DM 2, Hypothyroid, Dyslipidemia Cardiovascular: Reports: CAD, Hypertension, CHF, DVT Respiratory: Reports: 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 Denies: Appendectomy, Cholecystectomy, Tonsillectomy, Adenoidectomy, CABG, Stent - Family History Family History: Reports: Unknown - Social History Smoking Status: Never smoker Hx Substance Use: No Alcohol Screening: Occasionally - Immunizations Influenza Vaccine within 12 Months: No Pneumococcal Vaccine up to Date: No Physical Exam - Physical Exam Appearance: Well-appearing Eyes: ELIZA, EOMI, Conjunctiva clear ENT: Ears normal, Nose normal, Oropharynx normal Neck: Supple Respiratory: Airway patent, Breath sounds equal, Rhonchi Cardiovascular: RRR, Pulses normal, No rub, No murmur GI/: Soft, Nontender, No masses, Bowel sounds normal, No Organomegaly Musculoskeletal: Normal strength, ROM intact, No edema, No calf tenderness Skin: Warm, Dry, Normal color Neurological: Sensation intact, Motor intact, Reflexes intact, Cranial nerves intact, Alert, Oriented Psychiatric: Affect appropriate, Mood appropriate Interpretation - EKG Interpretation Time of EKG #1: 08:25 Rate: Normal Rhythm: Sinus ST Segment: Other (STRAIN PATTERN BY HISTORY NSSTT NO SIGNIF CHANGES [id number]) Critical Care Note - Critical Care Note Total Time (mins): 20 Course - Course Hematology/Chemistry: 07/12/17 09:00 07/12/17 09:00 Orders, Labs, Meds: Lab Review 07/12/17 07/12/17 07/12/17 08:30 09:00 09:00 WBC 14.09 H RBC 5.58 Hgb 12.8 L Hct 40.3 L MCV 72.2 L MCH 22.9 L MCHC 31.8 RDW Coeff of Marek 21.8 H Plt Count 211 Immature Gran % (Auto) 0.4 Neut % (Auto) 88.5 Lymph % (Auto) 3.8 L Sutter % (Auto) 6.3 Eos % (Auto) 0.8 Baso % (Auto) 0.2 Immature Gran # (Auto) 0.1 Neut # 12.5 H Lymph # 0.5 L Sutter # 0.9 Eos # 0.1 Baso # 0.0 Hypochromasia 1+ Anisocytosis 1+ Microcytosis 1+ D-Dimer (Manual) Puncture Site R brach O2 Saturation 86.0 L ABG pH 7.517 H* ABG pCO2 29.5 L ABG pO2 44.0 L* ABG HCO3 23.9 ABG Total CO2 25 ABG Base Excess 1 Storm Test + FiO2 % 21.0 Sodium 140 Potassium 3.8 Chloride 106 Carbon Dioxide 23 Anion Gap 14.8 BUN 24 H Creatinine 1.37 H Estimated GFR (MDRD) 50.00 BUN/Creatinine Ratio 17.51 Glucose 182 H Lactic Acid Calcium 8.9 Total Bilirubin 1.09 AST 15 ALT 7 L Alkaline Phosphatase 96 Total Creatine Kinase 65 Troponin I 0.0200 B-Natriuretic Peptide Total Protein 6.9 Albumin 3.1 L Globulin 3.8 Albumin/Globulin Ratio 0.82 Procalcitonin 07/12/17 07/12/17 07/12/17 09:00 09:00 09:00 WBC RBC Hgb Hct MCV MCH MCHC RDW Coeff of Marek Plt Count Immature Gran % (Auto) Neut % (Auto) Lymph % (Auto) Sutter % (Auto) Eos % (Auto) Baso % (Auto) Immature Gran # (Auto) Neut # Lymph # Sutter # Eos # Baso # Hypochromasia Anisocytosis Microcytosis D-Dimer (Manual) 2110.94 Puncture Site O2 Saturation ABG pH ABG pCO2 ABG pO2 ABG HCO3 ABG Total CO2 ABG Base Excess Storm Test FiO2 % Sodium Potassium Chloride Carbon Dioxide Anion Gap BUN Creatinine Estimated GFR (MDRD) BUN/Creatinine Ratio Glucose Lactic Acid 11.4 Calcium Total Bilirubin AST ALT Alkaline Phosphatase Total Creatine Kinase Troponin I B-Natriuretic Peptide 239 H Total Protein Albumin Globulin Albumin/Globulin Ratio Procalcitonin 07/12/17 09:00 WBC RBC Hgb Hct MCV MCH MCHC RDW Coeff of Marek Plt Count Immature Gran % (Auto) Neut % (Auto) Lymph % (Auto) Sutter % (Auto) Eos % (Auto) Baso % (Auto) Immature Gran # (Auto) Neut # Lymph # Sutter # Eos # Baso # Hypochromasia Anisocytosis Microcytosis D-Dimer (Manual) Puncture Site O2 Saturation ABG pH ABG pCO2 ABG pO2 ABG HCO3 ABG Total CO2 ABG Base Excess Storm Test FiO2 % Sodium Potassium Chloride Carbon Dioxide Anion Gap BUN Creatinine Estimated GFR (MDRD) BUN/Creatinine Ratio Glucose Lactic Acid Calcium Total Bilirubin AST ALT Alkaline Phosphatase Total Creatine Kinase Troponin I B-Natriuretic Peptide Total Protein Albumin Globulin Albumin/Globulin Ratio Procalcitonin < 0.05 Orders Category Date Time Status ADMIT PATIENT INPATIENT .TO SCU (MONITORED BED) ADMISSION 07/12/17 10:40 Active ABG DRAW REQUEST Stat CARDIO 07/12/17 08:34 Completed EKG-(ED ONLY) Stat CARDIO 07/12/17 08:33 Completed EKG-(IP & OP ONLY) DAILY CARDIO 07/13/17 06:00 Ordered EKG-(IP & OP ONLY) DAILY CARDIO 07/14/17 06:00 Ordered NEBULIZER TREATMENT Routine CARDIO 07/12/17 08:56 Active NEBULIZER TREATMENT Stat CARDIO 07/12/17 08:56 Completed OXYGEN Routine CARDIO 07/12/17 10:45 Completed ACTIVITY .Early Mobilization for VTE Prevention CARE 07/12/17 10:44 Completed ACTIVITY .Up ad Keely CARE 07/12/17 10:44 Active BLOOD GLUCOSE MONITORING 0630,1100,1700,2100 CARE 07/12/17 09:44 Completed BLOOD GLUCOSE MONITORING 0630,1100,1700,2100 CARE 07/12/17 10:46 Active GIVE HS SNACK 2100 CARE 07/12/17 10:45 Active INCISION/WOUND CARE Q6HR CARE 07/12/17 10:44 Active INTAKE & OUTPUT Q8HR CARE 07/12/17 10:40 Active INTAKE & OUTPUT Q8HR CARE 07/12/17 10:44 Completed TELEMETRY MONITORING TELE CARE 07/12/17 10:41 Active VITAL SIGNS Q4HR CARE 07/12/17 10:44 Active ADA 1800 LE. DIET DIETARY 07/12/17 Lunch Ordered CARDIAC DIET DIETARY 07/12/17 Lunch Ordered HS SNACK DIETARY 07/12/17 Dinner Ordered ED IV/MEDIPORT/POWERPORT .ONCE EMERGENCY 07/12/17 08:33 Active ABG Stat LAB 07/12/17 08:30 Completed B-TYPE NATRIURETIC PEPTIDE Stat LAB 07/12/17 09:00 Completed BLOOD CULTURE Stat LAB 07/12/17 09:20 Received CBC W/ AUTO DIFF DAILY@0600 LAB 07/13/17 06:00 Ordered CBC W/ AUTO DIFF DAILY@0600 LAB 07/14/17 06:00 Ordered CBC W/ AUTO DIFF Stat LAB 07/12/17 09:00 Completed COMPREHENSIVE METABOLIC PANEL DAILY@0600 LAB 07/13/17 06:00 Ordered COMPREHENSIVE METABOLIC PANEL DAILY@0600 LAB 07/14/17 06:00 Ordered COMPREHENSIVE METABOLIC PANEL Stat LAB 07/12/17 09:00 Completed CREATINE KINASE Q8H LAB 07/12/17 17:00 Ordered CREATINE KINASE Q8H LAB 07/13/17 01:00 Ordered CREATINE KINASE Stat LAB 07/12/17 09:00 Completed D-DIMER Stat LAB 07/12/17 09:00 Completed LACTIC ACID Stat LAB 07/12/17 09:00 Completed PROCALCITONIN Stat LAB 07/12/17 09:00 Completed RBC MORPHOLOGY Stat LAB 07/12/17 09:00 Completed TROPONIN I Q8H LAB 07/12/17 17:00 Ordered TROPONIN I Q8H LAB 07/13/17 01:00 Ordered TROPONIN I Stat LAB 07/12/17 09:00 Completed 0.9 % Sodium Chloride [Saline Flush] MEDS 07/12/17 08:33 Active 1 syr IVF PRN PRN Acetaminophen [Tylenol] MEDS 07/12/17 10:44 Active 650 mg PO Q4H PRN Albuterol Sulfate [Proair Hfa] MEDS 07/12/17 10:47 Active 2 puff IH QID PRN Aspirin [Aspirin EC] MEDS 07/12/17 21:00 Active 81 mg PO BEDTIME Azithromycin [Zithromax] MEDS 07/12/17 11:00 Active 500 mg PO DAILY Carvedilol [Coreg] MEDS 07/12/17 17:30 Active 12.5 mg PO BIDWM Ceftriaxone Sodium [Rocephin] MEDS 07/12/17 09:45 Discontinued 2 gm .ROUTE .STK-MED ONE Ceftriaxone Sodium [Rocephin] 1 gm MEDS 07/13/17 09:00 Active 0.9 % Sodium Chloride [Sodium Chloride] 50 ml IV DAILY Ceftriaxone Sodium [Rocephin] 2 gm MEDS 07/12/17 09:39 Discontinued 0.9 % Sodium Chloride [Sodium Chloride] 100 ml IV ONCE Duloxetine HCl [Cymbalta] MEDS 07/13/17 09:00 Active 30 mg PO DAILY Furosemide [Lasix] MEDS 07/12/17 08:58 Discontinued 20 mg IVP ONCE STA Glimepiride [Amaryl] MEDS 07/13/17 09:00 Active 2 mg PO DAILY Hydrocodone Bit/Acetaminophen [[place] 7.5-325] MEDS 07/12/17 10:47 Active 1 tab PO TID PRN Hydrocortisone Sod Succ/Pf [Solu-Cortef 250 mg] MEDS 07/12/17 09:00 Discontinued 125 mg IVP ONCE STA Hydrocortisone Sod Succ/Pf [Solu-Cortef 250 mg] MEDS 07/12/17 12:00 Active 125 mg IVP Q6HR Insulin Regular, Human [Humulin R] MEDS 07/12/17 09:44 Discontinued 3 unit SUBCUT ONCE STA Insulin Regular, Human [Humulin R] MEDS 07/12/17 09:43 Active See Protocol SUBCUT PRN PRN Ipratropium/Albuterol Neb [Duoneb] MEDS 07/12/17 08:56 Discontinued 1 vial NEB ONCE STA Ipratropium/Albuterol Neb [Duoneb] MEDS 07/12/17 12:00 Active 1 vial NEB RTQ6H Losartan Potassium [Cozaar] MEDS 07/13/17 09:00 Active 100 mg PO DAILY Mometasone/Formoterol [Dulera 200 Mcg/5 Mcg Inhaler] MEDS 07/12/17 21:00 Active 2 puff IH BID Omeprazole [Prilosec] MEDS 07/13/17 06:30 Active 20 mg PO QDAC Potassium Chloride [K-Dur] MEDS 07/13/17 08:00 Active 20 meq PO DAILYWM Zolpidem Tartrate [Ambien] MEDS 07/12/17 21:00 Active 5 mg PO BEDTIME RESUSCITATION STATUS Routine OTHERS 07/12/17 10:40 Ordered CHEST, 1V AP ONLY Stat RADS 07/12/17 08:33 Completed Medications Generic Name Dose Route Start Last Admin Trade Name Freq PRN Reason Stop Dose Admin Acetaminophen 650 mg 07/12/17 10:44 Tylenol PO Q4H PRN Mild Pain Acetaminophen/Hydrocodone Bitart 1 tab 07/12/17 10:47 [place] 7.5-325 PO TID PRN pain Albuterol Sulfate 2 puff 07/12/17 10:47 Proair Hfa IH QID PRN Wheezing Albuterol/Ipratropium 1 vial 07/12/17 12:00 07/12/17 11:13 Duoneb NEB Not Given RTQ6H GERRI Amlodipine Besylate 10 mg 07/13/17 09:00 Norvasc PO DAILY GERRI Aspirin 81 mg 07/12/17 21:00 Aspirin Ec PO BEDTIME GERRI Azithromycin 500 mg 07/12/17 11:00 07/12/17 11:28 Zithromax PO 07/14/17 23:59 500 mg DAILY [facility] Administration Bumetanide 2 mg 07/13/17 09:00 Bumex PO DAILY [facility] Carvedilol 12.5 mg 07/12/17 17:30 Coreg PO BIDWM [facility] Clonidine 0.2 mg 07/12/17 15:00 Catapres PO TID GERRI Duloxetine HCl 30 mg 07/13/17 09:00 Cymbalta PO DAILY GERRI Glimepiride 2 mg 07/13/17 09:00 Amaryl PO DAILY [facility] Hydrocortisone Sodium Succinate 125 mg 07/12/17 12:00 Solu-Cortef 250 Mg IVP Q6HR GERRI Ceftriaxone Sodium 1 gm/ 50 mls @ 75 mls/hr 07/13/17 09:00 Sodium Chloride IV DAILY GERRI Insulin Human Regular 0 unit 07/12/17 09:43 07/12/17 11:28 Humulin R SUBCUT 3 unit PRN PRN Administration Hyperglycemica Protocol Levothyroxine Sodium 100 mcg 07/13/17 06:30 Synthroid PO QDAC GERRI Levothyroxine Sodium 25 mcg 07/13/17 06:30 Synthroid PO QDAC GERRI Losartan Potassium 100 mg 07/13/17 09:00 Cozaar PO DAILY GERRI Non-Formulary Medication 2 puff 07/12/17 21:00 Mometasone/Formoterol [Dulera 200 Mcg/5 Mcg Inhaler] IH BID GERRI Omeprazole 20 mg 07/13/17 06:30 Prilosec PO QDAC GERRI Potassium Chloride 20 meq 07/13/17 08:00 K-Dur PO DAILYWM GERRI Simvastatin 5 mg 07/12/17 21:00 Zocor PO BEDTIME GERRI Sodium Chloride 1 syr 07/12/17 08:33 07/12/17 09:29 Saline Flush IVF 1 syr PRN PRN Administration To flush IV Tolterodine Tartrate 4 mg 07/13/17 09:00 Detrol La PO DAILY GERRI Zolpidem Tartrate 5 mg 07/12/17 21:00 Ambien PO BEDTIME GERRI Discontinued Medications Generic Name Dose Route Start Last Admin Trade Name Freq PRN Reason Stop Dose Admin Albuterol/Ipratropium 1 vial 07/12/17 08:56 07/12/17 09:19 Duoneb NEB 07/12/17 08:57 1 vial ONCE STA Administration Furosemide 20 mg 07/12/17 08:58 07/12/17 09:30 Lasix IVP 07/12/17 08:59 20 mg ONCE STA Administration Hydrocortisone Sodium Succinate 125 mg 07/12/17 09:00 07/12/17 09:28 Solu-Cortef 250 Mg IVP 07/12/17 09:01 125 mg ONCE STA Administration Ceftriaxone Sodium 2 gm/ 100 mls @ 100 mls/hr 07/12/17 09:39 07/12/17 09:51 Sodium Chloride IV 07/12/17 10:38 100 mls/hr ONCE STA Administration Insulin Human Regular 3 unit 07/12/17 09:44 07/12/17 09:59 Humulin R SUBCUT 07/12/17 09:45 3 unit ONCE STA Administration Vital Signs: Temp Pulse Resp BP Pulse Ox 07/12/17 08:22 100 F H 84 18 148/80 H 81 L AISHA Risk Score AISHA Risk Score: Risk Score Odds of by 30D 0 0.1 (0.1-0.2) 1 0.3 (0.2-0.3) 2 0.4 (0.3-0.5) 3 0.7 (0.6-0.9) 4 1.2 (1.0-1.5) 5 2.2 (1.9-2.6) 6 3.0 (2.5-3.6) 7 4.8 (3.8-6.1) Departure - Departure Time of Disposition: 10:40 Disposition: ADMITTED INPATIENT Discharge Problem: Right middle lobe pneumonia Qualifiers: Pneumonia type: due to unspecified organism Qualified Code(s): J18.1 - Lobar pneumonia, unspecified organism Condition: Stable Pt referred to PMD for follow-up: Yes Allergies/Adverse Reactions: Allergies No Known Allergies Allergy (Verified 07/12/17 08:32) Home Medications: Ambulatory Orders Duloxetine HCl [Cymbalta] 30 mg PO DAILY 01/17/13 Levothyroxine Sodium [Synthroid] 125 mcg PO DAILY 01/17/13 Simvastatin 5 mg PO BEDTIME 01/17/13 Zolpidem Tartrate 5 mg PO PRN PRN 01/17/13 Bumetanide 2 mg PO DAILY 03/20/15 Glimepiride 2 mg PO DAILY 03/20/15 Albuterol Sulfate [Proair Hfa] 2 puff IH QID PRN 03/21/15 Mometasone/Formoterol [Dulera 200 Mcg/5 Mcg Inhaler] 2 puff IH BID 03/21/15 Hydrocodone Bit/Acetaminophen [[place] 7.5-325] 7.5 mg PO TID PRN 05/21/15 Tolterodine Tartrate [Detrol LA] 4 mg PO DAILY 05/21/15 Triamcinolone Acetonide [Kenalog 0.1%] 1 applic TP BID PRN 05/21/15 Amlodipine Besylate [Norvasc] 10 mg PO DAILY 05/28/17 Aspirin [Aspir-Low] 81 mg PO BEDTIME 05/28/17 Carvedilol [Coreg] 12.5 mg PO BIDWM 05/28/17 Fluocinonide [Lidex 0.05% Ointment] 1 applic TP PRN PRN 05/28/17 Losartan Potassium [Cozaar] 100 mg PO DAILY 05/28/17 Potassium Chloride [K-Dur] 20 meq PO DAILY 05/28/17 Testosterone [Testopel] 75 mg [place] PRN PRN 05/28/17 Omeprazole [Prilosec] 20 mg PO QDAC 05/29/17 Clonidine HCl [Catapres] 0.2 mg PO TID #90 tablet 06/02/17
[2017-07-12 08:38] LABS: ABG PCO2 29.5 mmHg (35-45); ABG PH 7.517 (7.35-7.45)
[2017-07-12 08:39] LABS: ABG BASE EXCESS 1 (-2.0-2.0); ABG HCO3 23.9 (22.0-26.0); ABG TCO2 25 (22.0-28.0)
[2017-07-12] MEDS ORDERED: DUONEB NEB STA (08:56)
[2017-07-12] MEDS ORDERED: LASIX IVP STA (08:58)
[2017-07-12] MEDS ORDERED: SOLU-CORTEF 250 MG IVP STA (09:00)
--- NOTE | 2017-07-12 09:00 | DI ---
EXAM: Single frontal view of the chest HISTORY: Chest pain. COMPARISON: Chest x-ray 06/02/2017 and numerous priors FINDINGS: Cardiomediastinal silhouette is unchanged. There is patchy ground-glass and consolidations in the right lung. There is blunting right costophrenic angle. There is blunting left costophrenic angle with left lower lobe ground-glass. There is no pneumothorax. The osseous structures are unre markable. IMPRESSION: 1. Patchy ground-glass and consolidative opacities in the right mid lung and right lower lobe which may represent pulmonary edema versus inflammation/infection. 2. Blunting the costophrenic angles suggestive of small effusions. There is persistent left lower l obe ground-glass suggestive of atelectasis. 3. Unchanged cardiomegaly.
[2017-07-12 09:19] LABS: BASOPHILS % (AUTO) 0.2 % (0.0-3.0); EOSINOPHILS # (AUTO) 0.1 K/ul (0.0-0.7); EOSINOPHILS % (AUTO) 0.8 % (0.0-7.0); HEMATOCRIT 40.3 % (42.0-52.0); HEMOGLOBIN 12.8 g/dl (14.0-18.0); IMMATURE GRANULOCYTE % (AUTO) 0.4 % (0.0-5.0); LYMPHOCYTES # (AUTO) 0.5 K/uL (0.60-3.4); LYMPHOCYTES % (AUTO) 3.8 (10.0-50.0); MEAN CORPUSCULAR HEMOGLOBIN 22.9 pg (27.0-31.0); MEAN CORPUSCULAR HGB CONC 31.8 (31.8-35.4); MEAN CORPUSCULAR VOLUME 72.2 fl (80.0-94.0); MONOCYTES # (AUTO) 0.9 K/uL (0.4-2.0); MONOCYTES % (AUTO) 6.3 (0-10); NEUTROPHILS # (AUTO) 12.5 K/ul (2.0-6.9); NEUTROPHILS % (AUTO) 88.5; PLATELET COUNT 211 10^3/uL (140-440); RED BLOOD COUNT 5.58 10^6/ul (4.70-6.10); WHITE BLOOD COUNT 14.09 K/ul (4.2-10.2)
[2017-07-12 09:26] LABS: ANISOCYTOSIS 1+ (NOT PRESENT); HYPOCHROMASIA 1+ (NOT PRESENT); MICROCYTOSIS 1+ (NOT PRESENT)
[2017-07-12 09:38] LABS: ALBUMIN 3.1 g/dL (3.4-5.0); ALBUMIN/GLOBULIN RATIO 0.82; ANION GAP 14.8; BILIRUBIN,TOTAL 1.09 mg/dL (0.00-1.20); BUN/CREATININE RATIO 17.51; CALCIUM 8.9 mg/dL (8.2-10.2); CREATININE 1.37 mg/dL (0.60-1.10); POTASSIUM 3.8 mmol/L (3.5-5.1); TOTAL PROTEIN 6.9 g/dL (5.8-8.1); TROPONIN I 0.02 ng/ml (0.0000-0.4000)
[2017-07-12] MEDS ORDERED: ROCEPHIN 2 GM in SODIUM CHLORIDE 100 ML IV STA (09:39)
[2017-07-12] MEDS ORDERED: HUMULIN R SUBCUT STA (09:44)
[2017-07-12] MEDS ORDERED: ROCEPHIN ONE (09:45)
[2017-07-12] MEDS ORDERED: TYLENOL PO PRN (10:44)
[2017-07-12] MEDS ORDERED: NORCO 7.5-325 PO PRN (10:47)
[2017-07-12] MEDS ORDERED: PROAIR HFA IH PRN (10:47)
[2017-07-12] MEDS: DUONEB NEB SCH ×3 (11:13→22:53)
[2017-07-12] MEDS: ZITHROMAX PO SCH (11:28)
[2017-07-12] MEDS: HUMULIN R SUBCUT PRN ×3 (11:28→20:14)
[2017-07-12 11:44] VITALS: BMI 27.0
[2017-07-12] MEDS: SOLU-CORTEF 250 MG IVP SCH ×2 (13:55→17:56)
[2017-07-12] MEDS ORDERED: NON-FORMULARY MEDICATION (Clonidine Hcl [Catapres] 0.2 MG) PO SCH ×22 (15:00)
[2017-07-12] MEDS: CATAPRES PO SCH ×2 (15:18→21:30)
[2017-07-12] MEDS: COREG PO SCH (17:10)
[2017-07-12 17:32] LABS: TROPONIN I 0.011 ng/ml (0.0000-0.4000)
[2017-07-12] MEDS ORDERED: SIMVASTATIN 5 MG PO SCH (21:00)
[2017-07-12] MEDS: ZOCOR PO SCH (21:30)
[2017-07-12] MEDS: ASPIRIN EC PO SCH (21:30)
[2017-07-12] MEDS: AMBIEN PO SCH (21:30)
[2017-07-12] MEDS: NON-FORMULARY MEDICATION (Mometasone/Formoterol [Dulera 200 Mcg/5 Mcg Inhaler] 2 PUFF) IH SCH (21:31)
[2017-07-13] MEDS: SOLU-CORTEF 250 MG IVP SCH ×4 (02:00→21:14)
[2017-07-13 02:18] LABS: TROPONIN I 0.015 ng/ml (0.0000-0.4000)
[2017-07-13] MEDS: DUONEB NEB SCH ×4 (05:00→23:12)
[2017-07-13 05:32] LABS: BASOPHILS % (AUTO) 0.1 % (0.0-3.0); EOSINOPHILS % (AUTO) 0.1 % (0.0-7.0); HEMATOCRIT 36.8 % (42.0-52.0); HEMOGLOBIN 11.7 g/dl (14.0-18.0); IMMATURE GRANULOCYTE % (AUTO) 0.7 % (0.0-5.0); LYMPHOCYTES # (AUTO) 0.7 K/uL (0.60-3.4); LYMPHOCYTES % (AUTO) 5.9 (10.0-50.0); MEAN CORPUSCULAR HEMOGLOBIN 22.9 pg (27.0-31.0); MEAN CORPUSCULAR HGB CONC 31.8 (31.8-35.4); MONOCYTES # (AUTO) 0.7 K/uL (0.4-2.0); MONOCYTES % (AUTO) 5.7 (0-10); NEUTROPHILS # (AUTO) 10.6 K/ul (2.0-6.9); NEUTROPHILS % (AUTO) 87.5; RED BLOOD COUNT 5.11 10^6/ul (4.70-6.10); WHITE BLOOD COUNT 12.12 K/ul (4.2-10.2)
[2017-07-13 05:43] LABS: ALBUMIN 2.6 g/dL (3.4-5.0); ALBUMIN/GLOBULIN RATIO 0.74; ANION GAP 13.8; BILIRUBIN,TOTAL 0.97 mg/dL (0.00-1.20); BUN/CREATININE RATIO 17.03; CALCIUM 8.6 mg/dL (8.2-10.2); CREATININE 1.35 mg/dL (0.60-1.10); POTASSIUM 3.8 mmol/L (3.5-5.1); TOTAL PROTEIN 6.1 g/dL (5.8-8.1)
[2017-07-13 06:02] LABS: PLATELET COUNT 197 10^3/uL (140-440)
[2017-07-13] MEDS: SYNTHROID PO SCH ×2 (06:12)
[2017-07-13] MEDS: PRILOSEC PO SCH (06:13)
[2017-07-13] MEDS: HUMULIN R SUBCUT PRN ×4 (06:25→21:15)
[2017-07-13] MEDS: COZAAR PO SCH (08:40)
[2017-07-13] MEDS: ROCEPHIN 1 GM in SODIUM CHLORIDE 50 ML IV SCH (08:40)
[2017-07-13] MEDS: ZITHROMAX PO SCH (08:41)
[2017-07-13] MEDS: COREG PO SCH ×2 (08:41→16:45)
[2017-07-13] MEDS: K-DUR PO SCH (08:41)
[2017-07-13] MEDS: AMARYL PO SCH (08:41)
[2017-07-13] MEDS: CATAPRES PO SCH ×3 (08:41→21:15)
[2017-07-13] MEDS: DETROL LA PO SCH (08:41)
[2017-07-13] MEDS: CYMBALTA PO SCH (08:41)
[2017-07-13] MEDS: BUMEX PO SCH (08:41)
[2017-07-13] MEDS: NORVASC PO SCH (08:41)
[2017-07-13] MEDS: NON-FORMULARY MEDICATION (Mometasone/Formoterol [Dulera 200 Mcg/5 Mcg Inhaler] 2 PUFF) IH SCH ×2 (08:45→21:16)
[2017-07-13] MEDS ORDERED: NON-FORMULARY MEDICATION (Amlodipine Besylate [Norvasc] 10 MG) PO SCH ×22 (09:00)
[2017-07-13] MEDS ORDERED: NON-FORMULARY MEDICATION (Levothyroxine Sodium [Synthroid] 125 MCG) PO SCH ×22 (09:00)
[2017-07-13] MEDS ORDERED: NON-FORMULARY MEDICATION (Tolterodine Tartrate 4 MG) PO SCH (09:00)
[2017-07-13] MEDS ORDERED: NON-FORMULARY MEDICATION (Bumetanide [Bumetanide] 2 MG) PO SCH (09:00)
--- NOTE | 2017-07-13 10:44 | PCM.PROG ---
Attending Provider: ATTENDING PROVIDER: Dr. SPARKLE MART This patient is seen with Cary Xavier, Nurse Practitioner. DATE OF SERVICE: 07/13/17 SUBJECTIVE: This 82 year old WHITE/ M was hospitalized 07/12/17. The patient is lying in bed, alert. He states shortness of breath is much improved. REVIEW OF SYSTEMS: CONSTITUTIONAL: Weakness. No night sweats. No fever or chills. HEENT: Eyes: No visual changes. No eye pain. No eye discharge. ENT: No runny nose. No epistaxis. No sinus pain. No odynophagia. No congestion. RESPIRATORY: Shortness of breath improving. No cough, no congestion. No hemoptysis. CARDIOVASCULAR: No angina symptoms. No CHF symptoms. No atypical chest pain for CAD. No palpitations. No orthopnea.. GASTROINTESTINAL: No abdominal pain. No nausea or vomiting. No diarrhea or constipation. No hematemesis. No hematochezia. GENITOURINARY: No urgency. No frequency. No dysuria. No hematuria. No obstructive symptoms. No discharge. No pain. No significant abnormal bleeding. MUSCULOSKELETAL: No musculoskeletal pain; no joint swelling. NEUROLOGICAL: Awake, alert, oriented to time, place and person. No headache. No neck pain. No syncope. No seizures. No dizziness. PSYCHIATRIC: Not anxious. No depression. No suicidal thoughts. No homicidal thoughts. SKIN: Decubitus right gluteal fold, present on admission. ENDOCRINE: No unexplained weight loss. No weight gain. HEMATOLOGIC/LYMPHATIC: No anemia. No purpura. No petechiae. No prolonged or excessive bleeding. No palpable lymph nodes. PHYSICAL EXAMINATION: GENERAL: The patient is awake, alert and oriented, lying/sitting in bed in no distress. VITAL SIGNS: Temperature 97.4 F, Pulse 69, Respiratory Rate 16, BP 127/79, Pulse Ox 95% HEENT: Head normocephalic, atraumatic. Eyes: Extraocular muscles are intact. Pupils are equal, round and reactive to light and accommodation. Ears: No lesions. Nose appeared normal. Throat: No exudate or erythema. NECK: Supple. No JVD, no carotid bruit. No lymphadenopathy or thyromegaly. LUNGS: Severely diminished breath sounds bilaterally. Clear to auscultation. Percussion note normal. Chest symmetrical. HEART: S1, S2, no S3. No murmurs. No cyanosis or clubbing. No ascites. Pulses: Dorsalis pedis and posterior tibial pulses +1 to +2 both sides. ABDOMEN: Soft. Non-tender. Bowel sounds active. No CVA tenderness. No mass felt. EXTREMITIES: Trace to 1+ bilateral lower extremity edema. Full range of motion of all extremities, equal. NEUROLOGIC: No focal deficit. Cranial nerves II through XII are grossly intact. No headache, no double vision or headache. SKIN: Warm and dry. Turgor-normal. Decubitus right gluteal fold, Stage 2, present on admission. LYMPHATIC: No palpable lymph nodes/no lymphedema. MUSCULOSKELETAL: Normal joints with no swelling. Muscle tone is normal. LAB REVIEW: 07/13/17 05:00 07/13/17 05:00 07/13/17 05:00: Sodium 141, Potassium 3.8, Chloride 107, Carbon Dioxide 24, Anion Gap 13.8, BUN 23 H, Creatinine 1.35 H, Estimated GFR (MDRD) 51.00, BUN/ Creatinine Ratio 17.03, Glucose 199 H, Calcium 8.6, Total Bilirubin 0.97, AST 12 L, ALT 6 L, Alkaline Phosphatase 80, Total Protein 6.1, Albumin 2.6 L, Globulin 3.5, Albumin/Globulin Ratio 0.74 07/13/17 05:00: WBC 12.12 H, RBC 5.11, Hgb 11.7 L, Hct 36.8 L, MCV 72.0 L, MCH 22.9 L, MCHC 31.8, RDW Coeff of Marek 22.0 H, Plt Count 197, Immature Gran % (Auto ) 0.7, Neut % (Auto) 87.5, Lymph % (Auto) 5.9 L, Tripp % (Auto) 5.7, Eos % (Auto ) 0.1, Baso % (Auto) 0.1, Immature Gran # (Auto) 0.1, Neut # 10.6 H, Lymph # 0.7 , Tripp # 0.7, Eos # 0.0, Baso # 0.0 07/13/17 01:45: Total Creatine Kinase 41, Troponin I 0.0150 07/12/17 17:06: Total Creatine Kinase 52, Troponin I 0.0110 ASSESSMENT: 1. PNEUMONIA 2. PULMONARY FIBROSIS 3. SOB 4. COPD 5 LEG EDEMA 6. DECUBITUS RIGHT GLUTEAL FOLD, STAGE 2, PRESENT ON ADMISSION PLAN: 1. Continue antibiotics, breathing treatments 2. Decrease steroids to q.8hr 3, Duoderm dressing to right gluteal fold Plan and coordination of the patient's care discussed in the presence of Reed Fixer and nurse. CONDITION: Stable SCRIBED BY: HARRY VERA Body Maker Machine Setter scribed while in presence of service performed by Dr. Mart/Cary Xavier APRN on 07/13/17 ([id number])
--- NOTE | 2017-07-13 13:49 | RS.PTINEVL ---
Subjective - Patient information Date of Evaluation: 07/13/17 Date of Arrival on Unit: 07/12/17 Admitted From:: Home Diagnosis: pneumonia Usual Living Arrangement: With Spouse Living Arrangement Comments: Pt lives at home with his in a 3 level house. Pt goes up all stairs in his home. Home Environment: Stairs (many), Rail Medical History: Hypertension, COPD, Diabetes, CHF Medical History Comments:: DVT, back pain LATEX ALLERGY?: No Surgical History: Knee Replacement, Cholecystectomy, CABG Surgical History Comments:: hernia repair x 3, foot surgery Subjective Information/ Patient Comments:: pt states he is doing better this time. States he has been practicing his exercises as well as walking at home. - Level of function Prior to this admission, the patient could do the following:: Independent Selfcare, Independent ADL's, Independent Ambulation, Drive, Participated in Social Activities Outside home, Volunteer/Work Current Level of Function: Partially Dependent Current Equipment Used at Home: straight cane, oxygen, glucometer Interventions - Objective Patient Orientation: Person, Place, Time, Situation Current Interventions: Oxygen, Telemetry Range of Motion - ROM Right Upper Extremity AROM: Slight limitation (BUE shld flex limited due to arthritis.) Left Upper Extremity AROM: Slight limitation Right Lower Extremity AROM: WFL's Left Lower Extremity AROM: WFL's Muscle Strength - Muscle Strength Right Upper Extremity Strength: Mild Weakness (RUE shld flex/ext 3-/5, elbow flex/ext 4-/5) Left Upper Extremity Strength: Mild Weakness (shld flex 3/5, elbow flex/ext 4-/5 ,) Right Lower Extremity Strength: Mild Weakness (hip flex 4-/5, knee flex/ext 4/5 , ankle Df/PF 4/5) Left Lower Extremity Strength: Mild Weakness (hip flex 4-/5, knee flex/ext 4/5, ankle Df/PF 4/5) Sensation - Sensation Right Upper Extremity Sensation: Intact/Normal Left Upper Extremity Sensation: Intact/Normal Right Lower Extremity Sensation: Intact/Normal Left Lower Extremity Sensation: Intact/Normal Palpation Palpation Findings: None/Normal Balance - Sitting Balance and Reactions Static Sitting Balance: Good Dynamic Sitting Balance: Good - Standing Balance and Reactions Static Standing Balance: Fair Dynamic Standing Balance: Fair Standing Equilibrium Reactions: Delayed Left, Delayed Right Standing Protective Reactions: Delayed Left, Delayed Right - Comments Balance Assessment Comments: pt with increased lat sway with amb. Functional Mobility - Bed Mobility Rolling R/L: CGA Scooting: CGA Supine to Sit: CGA, Min Assist - Transfers Sit to Stand: CGA, 1 person assist Stand to Sit: CGA, 1 person assist - Safety Awareness Safety Awareness: Good Ambulation - Ambulation Assistive Device Used: Straight Cane Orthotic/Prosthetic Device: No Distance: 100ft Assistance needed with Ambulation: CGA, Min Assist, 1 person assist Gait Deviations: No Deviations/Normal Ambulation Comments: pt amb with decreased step length, flexed posture, increased lat sway Factors Affecting Ambulation: Decreased Balance, Breathing/O2 Saturation, Weakness, Decreased Safety, Limited Endurance Treatment time - Time with patient Total treatment time: 26 Patient Education - Education Patient Education: Education of diagnosis, Activity Modification, Education of Plan of Care Teaching Recipient: Patient Teaching Methods: Discussion, Demonstration Comments: Discussed with patient safety with amb and recommend pt have assist when up walking Assessment - Assessment Problem List:: Decreased level of function, Requires training/education, Decreased safety/Risk of falls, Weakness Rehab Potential: Good Further Therapy Indicated?: Yes Short Term Goals GOAL #1: pt independent rolling and scooting up in bed Goal to be met by: 07/17/17 GOAL #2: pt transfer sup to/from sit to/from stand SBA Goal to be met by: 07/17/17 GOAL #3: pt amb with rwx 150' with SBA with no LOB with improved gait pattern Goal to be met by: 07/17/17 Assisted Goals GOAL #1: pt transfer sup to/from sit to/from stand independently Goal to be met by: 07/19/17 GOAL #2: pt amb 200ft with cane independently with no loss of balance Goal to be met by: 07/19/17 GOAL #3: Improved strength BLE 4 to 4+/5, pt independent with HEP Goal to be met by: 07/19/17 Plan Plan of Care: Therapeutic EX, Therapeutic Activity, Self-Care/Home Management Other:: gait training Frequency of Treatment: 1-2 X day, as tolerated Duration of Treatment: 6 days Anticipated Discharge Destination: Home Has the Physician been added for Co-signature?: Yes
--- NOTE | 2017-07-13 15:18 | HP ---
DATE OF SERVICE: 07/13/17 REASON FOR HOSPITALIZATION/HISTORY OF PRESENT ILLNESS: 82 year old white male who presented to the emergency room. He has a history of pulmonary fibrosis. He stated that he woke in the middle of the night with increasing shortness of breath. He did a nebulizer treatment and oxygen with no improvement so he was brought to the emergency room. PAST MEDICAL HISTORY: Recurrent pneumonia Pulmonary fibrosis History of CHF Chronic leg edema Hypothyroidism Depression Dyslipidemia Insomnia Chronic kidney disease COPD Osteoarthritis BPH Hypertension GERD Hypogonadism Decubitus ulcer right gluteal fold, stage 2 present on admission. PAST SURGICAL HISTORY: Hernia repair REVIEW OF SYSTEMS: CONSTITUTIONAL: No night sweats. Fatigue, malaise and chills. No fever. HEENT: Eyes: No visual changes. No eye pain. No eye discharge. ENT: No runny nose. No epistaxis. No sinus pain. No sore throat. No odynophagia. No ear pain. No congestion. RESPIRATORY: No cough, no congestion. No hemoptysis. Shortness of breath. Wheezing. CARDIOVASCULAR: No angina symptoms. No CHF symptoms. No atypical chest pain for CAD. No palpitations. No orthopnea. GASTROINTESTINAL: No abdominal pain. No nausea or vomiting. No diarrhea or constipation. No hematemesis. No hematochezia. GENITOURINARY: No urgency. No frequency. No dysuria. No hematuria. No obstructive symptoms. No discharge. No pain. No significant abnormal bleeding. MUSCULOSKELETAL: No musculoskeletal pain. No joint swelling. No arthritis. NEUROLOGICAL: No headache. No neck pain. No syncope. No seizures. No dizziness. No confusion. PSYCHIATRIC: Not anxious. No depression. No suicidal thoughts. No homicidal thoughts. SKIN: No rash. No lesions. No wounds. ENDOCRINE: No unexplained weight loss. No weight gain. HEMATOLOGIC/LYMPHATIC: No anemia. No purpura. No petechiae. No prolonged or excessive bleeding. No palpable lymph nodes. PERSONAL/FAMILY/SOCIAL HISTORY: The patient is and lives at home with his . He is retired. He has quit smoking for several years. Denies any alcohol or illicit drug use. MEDICATIONS: Cymbalta 30mg daily Synthroid 125mcg daily Simvastatin 5mg daily Ambien 5mg PRN at bedtime Bumex 2mg daily Glimepiride 2mg PO daily Albuterol inhaler two puffs four times a day PRN Dulera 2 puffs twice a day [place] 7.5 three times a day PRN Detrol LA 4mg daily Norvasc 10mg daily Aspirin 81mg daily Coreg 12.5 twice a day Cozaar 100mg daily Potassium Chloride 20meq daily Testosterone 75mg PRN Prilosec 20mg daily Catapres 0.2mg three times a day ALLERGIES: None PHYSICAL EXAMINATION: VITAL SIGNS: Temperature 97.4, heart rate 69, respirations 16, blood pressure 127/79 and pulse ox 95% on 2 liters. HEENT: Head normocephalic, atraumatic. Eyes: Extraocular muscles are intact. Pupils are equal, round and reactive to light and accommodation. Tympanic membranes within normal limits bilaterally. Ears: No lesions. Nose appeared normal. Throat: No exudate or erythema. NECK: Supple. No JVD, no carotid bruit. No lymphadenopathy or thyromegaly. LUNGS: Severely diminished breath sounds, crepitations at the bases. Clear to auscultation. Percussion note normal. Chest symmetrical. HEART: S1, S2, no S3. No murmurs. No cyanosis or clubbing. No ascites. Pulses: Dorsalis pedis and posterior tibial pulses +1. ABDOMEN: Soft. Nontender. Bowel sounds active times four quadrants. He does have abdominal obesity. No CVA tenderness. No mass felt. No hepatosplenomegaly. EXTREMITIES: +1 pitting edema bilateral lower extremities. Full range of motion of all extremities, equal. Negative Kovacs signs. No redness or erythema. NEUROLOGIC: No focal deficit. Cranial nerves II through XII are grossly intact. No headache, no double vision or headache. SKIN: [place], warm and dry. Intact. Turgor - normal. Stage 2 decubitus on the right gluteal fold. No signs or symptoms of infection. LYMPHATIC: No palpable lymph nodes/no lymphedema. MUSCULOSKELETAL: Normal joints with no swelling. Muscle tone is normal. LABS: Chest x-ray showed patchy group glass and consolidated opacities in the right mid lung and right lower lobe. Pulmonary edema versus infection. Persistent left lower lobe ground glass suggestive of atelectasis unchanged cardiomegaly. Sodium 140, potassium 3.8, chloride 106, BUN 24, creatinine 1.37, GFR 50, total bilirubin 1.09, AST 15, ALT 7, troponin 0.02, total protein 16.9, Albumin 3.1, BNP 239, alkaline phosphatase 96, lactic acid 11.4, WBC 14.09, hgb 12.8, hct 40.3, plt count 211. ABG on room air pH 7.517, pCO2 29.5, pO2 44, base excesses of 1, bicarb 23.9, TCO2 25, O2 sat 86. Wound culture was done on admission for the decubitus on his gluteal fold. ASSESSMENT: 1. Pneumonia 2. Questionable pulmonary edema 3. Chronic leg edema 4. Hypertension 5. Shortness of breath 6. Weakness 7. History of pulmonary fibrosis 8. COPD 9. Chronic kidney disease PLAN: 1. Admit to special care unit 2. Routine telemetry orders 3. Solu-Cortef 125mg Q 6 hours diego 4. Rocephin 1 gram IV daily 5. Zithromax 500mg PO daily times three days 6. DUO NEBS treatment Q 6 hours scheduled 7. Continue home medications 8. Sliding scale for insulin 9. Elevate legs 10.20mg of IV Lasix on admission 11.CBC and CMP daily 12.Low sodium diet 13.Oxygen PRN 14.Sputum for culture and sensitivity 15.Wound for culture and sensitivity Will follow closely. TIME SPENT: More than 70 minutes. MTDD
[2017-07-13] MEDS: AMBIEN PO SCH (21:15)
[2017-07-13] MEDS: ASPIRIN EC PO SCH (21:15)
[2017-07-13] MEDS: ZOCOR PO SCH (21:17)
[2017-07-14] MEDS: DUONEB NEB SCH ×3 (05:00→17:05)
[2017-07-14 05:32] LABS: BASOPHILS % (AUTO) 0.1 % (0.0-3.0); HEMATOCRIT 36.8 % (42.0-52.0); HEMOGLOBIN 11.5 g/dl (14.0-18.0); IMMATURE GRANULOCYTE % (AUTO) 0.7 % (0.0-5.0); LYMPHOCYTES # (AUTO) 0.8 K/uL (0.60-3.4); LYMPHOCYTES % (AUTO) 5.9 (10.0-50.0); MEAN CORPUSCULAR HEMOGLOBIN 22.5 pg (27.0-31.0); MEAN CORPUSCULAR HGB CONC 31.3 (31.8-35.4); MONOCYTES # (AUTO) 0.5 K/uL (0.4-2.0); NEUTROPHILS # (AUTO) 11.3 K/ul (2.0-6.9); NEUTROPHILS % (AUTO) 89.3; PLATELET COUNT 194 10^3/uL (140-440); RED BLOOD COUNT 5.11 10^6/ul (4.70-6.10); WHITE BLOOD COUNT 12.64 K/ul (4.2-10.2)
[2017-07-14 05:55] LABS: ALBUMIN 2.7 g/dL (3.4-5.0); ALBUMIN/GLOBULIN RATIO 0.77; ANION GAP 13.4; BILIRUBIN,TOTAL 0.74 mg/dL (0.00-1.20); BUN/CREATININE RATIO 22.12; CALCIUM 8.6 mg/dL (8.2-10.2); CREATININE 1.13 mg/dL (0.60-1.10); POTASSIUM 3.4 mmol/L (3.5-5.1); TOTAL PROTEIN 6.2 g/dL (5.8-8.1)
[2017-07-14] MEDS: SOLU-CORTEF 250 MG IVP SCH (06:02)
[2017-07-14] MEDS: SYNTHROID PO SCH ×2 (06:02)
[2017-07-14] MEDS: PRILOSEC PO SCH (06:02)
[2017-07-14] MEDS: HUMULIN R SUBCUT PRN ×4 (06:02→21:19)
[2017-07-14 09:12] LABS: ABG PCO2 35.2 mmHg (35-45); ABG PH 7.466 (7.35-7.45)
[2017-07-14 09:14] LABS: ABG BASE EXCESS 2 (-2.0-2.0); ABG HCO3 25.4 (22.0-26.0); ABG TCO2 26 (22.0-28.0)
[2017-07-14] MEDS: NON-FORMULARY MEDICATION (Mometasone/Formoterol [Dulera 200 Mcg/5 Mcg Inhaler] 2 PUFF) IH SCH ×2 (09:46→21:21)
[2017-07-14] MEDS: ROCEPHIN 1 GM in SODIUM CHLORIDE 50 ML IV SCH (09:46)
[2017-07-14] MEDS: NORVASC PO SCH (09:46)
[2017-07-14] MEDS: DETROL LA PO SCH (09:47)
[2017-07-14] MEDS: COZAAR PO SCH (09:47)
[2017-07-14] MEDS: ZITHROMAX PO SCH (09:47)
[2017-07-14] MEDS: AMARYL PO SCH ×2 (09:47→11:00)
[2017-07-14] MEDS: K-DUR PO SCH ×3 (09:47→17:31)
[2017-07-14] MEDS: BUMEX PO SCH (09:47)
[2017-07-14] MEDS: COREG PO SCH ×2 (09:48→17:31)
[2017-07-14] MEDS: CATAPRES PO SCH ×3 (09:48→21:21)
[2017-07-14] MEDS: CYMBALTA PO SCH (09:48)
--- NOTE | 2017-07-14 11:16 | PCM.PROG ---
Attending Provider: ATTENDING PROVIDER: Dr. SPARKLE MART DATE OF SERVICE: 07/14/17 SUBJECTIVE: This 82 year old WHITE/ M was hospitalized 07/12/17. The patient is hospitalized with pneumonia. He also had some evidence of CHF on chest x-ray. Acute respiratory failure has been treated with antibiotics, steroids and nebs treatment and is feeling a lot better. Oxygen saturation is more than 90% on room air. REVIEW OF SYSTEMS: CONSTITUTIONAL: Mild weakness. No night sweats. No fever or chills. HEENT: Eyes: No visual changes. No eye pain. No eye discharge. ENT: No runny nose. No epistaxis. No sinus pain. No odynophagia. No congestion. RESPIRATORY: No cough, no congestion. No hemoptysis. No shortness of breath. CARDIOVASCULAR: No angina symptoms. No CHF symptoms. No atypical chest pain for CAD. No palpitations. No orthopnea.. GASTROINTESTINAL: No abdominal pain. No nausea or vomiting. No diarrhea or constipation. No hematemesis. No hematochezia. GENITOURINARY: No urgency. No frequency. No dysuria. No hematuria. No obstructive symptoms. No discharge. No pain. No significant abnormal bleeding. MUSCULOSKELETAL: No musculoskeletal pain; no joint swelling. NEUROLOGICAL: Awake, alert, oriented to time, place and person. No headache. No neck pain. No syncope. No seizures. No dizziness. PSYCHIATRIC: Not anxious. No depression. No suicidal thoughts. No homicidal thoughts. SKIN: No rash. No lesions. No wounds. ENDOCRINE: No unexplained weight loss. No weight gain. HEMATOLOGIC/LYMPHATIC: No anemia. No purpura. No petechiae. No prolonged or excessive bleeding. No palpable lymph nodes. PHYSICAL EXAMINATION: GENERAL: The patient is awake, alert and oriented, lying in bed in no distress. VITAL SIGNS: Temperature 97.7 F, Pulse 70, Respiratory Rate 20, BP 143/77, Pulse Ox 96% HEENT: Head normocephalic, atraumatic. Eyes: Extraocular muscles are intact. Pupils are equal, round and reactive to light and accommodation. Ears: No lesions. Nose appeared normal. Throat: No exudate or erythema. NECK: Supple. No JVD, no carotid bruit. No lymphadenopathy or thyromegaly. LUNGS: Decreased brearh sounds. Clear to auscultation. No wheeze. Percussion note normal. Chest symmetrical. HEART: S1, S2, no S3. No murmurs. No cyanosis or clubbing. No ascites. Pulses: Dorsalis pedis and posterior tibial pulses +1 to +2 both sides. ABDOMEN: Soft. Non-tender. Bowel sounds active. No CVA tenderness. No mass felt. EXTREMITIES: No edema. Full range of motion of all extremities, equal. NEUROLOGIC: No focal deficit. Cranial nerves II through XII are grossly intact. No headache, no double vision or headache. SKIN: Warm, dry and intact. Turgor-normal. LYMPHATIC: No palpable lymph nodes/no lymphedema. MUSCULOSKELETAL: Normal joints with no swelling. Muscle tone is normal. LAB REVIEW: 07/14/17 05:15 07/14/17 05:15 07/14/17 05:15: Sodium 141, Potassium 3.4 L, Chloride 106, Carbon Dioxide 25, Anion Gap 13.4, BUN 25 H, Creatinine 1.13 H, Estimated GFR (MDRD) 62.00, BUN/ Creatinine Ratio 22.12, Glucose 189 H, Calcium 8.6, Total Bilirubin 0.74, AST 12 L, ALT 7 L, Alkaline Phosphatase 73, Total Protein 6.2, Albumin 2.7 L, Globulin 3.5, Albumin/Globulin Ratio 0.77 07/14/17 05:15: WBC 12.64 H, RBC 5.11, Hgb 11.5 L, Hct 36.8 L, MCV 72.0 L, MCH 22.5 L, MCHC 31.3 L, RDW Coeff of Marek 22.1 H, Plt Count 194, Immature Gran % ( Auto) 0.7, Neut % (Auto) 89.3, Lymph % (Auto) 5.9 L, [place] % (Auto) 4.0, Eos % ( Auto) 0.0, Baso % (Auto) 0.1, Immature Gran # (Auto) 0.1, Neut # 11.3 H, Lymph # 0.8, [place] # 0.5, Eos # 0.0, Baso # 0.0 ASSESSMENT: 1. Acute respiratory failure resolving 2. CHF resolved 3. Pneumonia clinically under control PLAN: 1. Continue steroids, nebs treatment and antibiotics 2. Chest x-ray 3. Also do ABGs on room air 4. Advised to be up and about Plan and coordination of the patient's care discussed in the presence of Acid Filler and nurse. CONDITION: Stable SCRIBED BY: HARRY VERA [employer] scribed while in presence of service performed by Dr. SPARKLE MART on 07/14/17 ([id number])
[2017-07-14] MEDS: PREDNISONE PO SCH ×2 (13:13→17:31)
--- NOTE | 2017-07-14 14:26 | DI ---
EXAM: Single frontal view of the chest HISTORY: Follow up pulmonary edema. COMPARISON: Chest x-ray 07/12/2017 and multiple priors FINDINGS: Cardiomediastinal silhouette is stable and enlarged with atherosclerotic disease. There is no pneumothorax. There is blunting the costophrenic angles bilaterally with interval improvement in interstitial ground-glass and pulmonary vascular indistinctness. The osseous structures are unchang ed. IMPRESSION: Interval improvement in pulmonary vascular indistinctness and ground-glass suggestive of improving pu lmonary edema versus improving atypical infection. Stable cardiomegaly and questionable trace pleural effusions versus atelectasis.
--- NOTE | 2017-07-14 14:43 | PN ---
DATE OF SERVICE: 07/12/17 SUBJECTIVE: The patient was brought to the emergency room with respiratory distress. The patient's pO2 40's and saturation was around 80% on room air with normal pH and pCO2. The patient's chest x-ray showed that patient had either and/or pneumonia with congestive heart failure with pleural effusion. The patient also had fever of 101. I examined the patient in the emergency room. The case was discussed with ER attending. REVIEW OF SYSTEMS: CONSTITUTIONAL: No night sweats. No fatigue, malaise, lethargy. Chills 12-24 hour duration. Fever. HEENT: Eyes: No visual changes. No eye pain. No eye discharge. ENT: No runny nose. No epistaxis. No sinus pain. No sore throat. No odynophagia. No congestion. RESPIRATORY: No cough, no congestion. No hemoptysis. No shortness of breath. CARDIOVASCULAR: No angina symptoms. No CHF symptoms. No atypical chest pain for CAD. No palpitations. No orthopnea. GASTROINTESTINAL: No abdominal pain. No nausea or vomiting. No diarrhea or constipation. No hematemesis. No hematochezia. GENITOURINARY: No urgency. No frequency. No dysuria. No hematuria. No obstructive symptoms. No discharge. No pain. No significant abnormal bleeding. MUSCULOSKELETAL: No musculoskeletal pain; no joint swelling. NEUROLOGICAL: No headache. No neck pain. No syncope. No seizures. No dizziness. PSYCHIATRIC: Not anxious. No depression. No suicidal thoughts. No homicidal thoughts. SKIN: No rash. No lesions. No wounds. ENDOCRINE: No unexplained weight loss. No weight gain. HEMATOLOGIC/LYMPHATIC: No anemia. No purpura. No petechiae. No prolonged or excessive bleeding. No palpable lymph nodes. PHYSICAL EXAMINATION: HEENT: Head normocephalic, atraumatic. Eyes: Extraocular muscles are intact. Pupils are equal, round and reactive to light and accommodation. Ears: No lesions. Nose appeared normal. Throat: No exudate or erythema. NECK: Supple. No JVD, no carotid bruit. No lymphadenopathy or thyromegaly. LUNGS: Mild expiratory wheeze with absent breath sounds at the bases. Clear to auscultation. Percussion note normal. Chest symmetrical. HEART: S1, S2, no S3. No murmurs. No cyanosis or clubbing. No ascites. Pulses: Dorsalis pedis and posterior tibial pulses +1 to +2 both sides. ABDOMEN: Soft. Nontender. Bowel sounds active. No CVA tenderness. No mass felt. EXTREMITIES: No edema. Full range of motion of all extremities, equal. NEUROLOGIC: No focal deficit. Cranial nerves II through XII are grossly intact. No headache, no double vision or headache. SKIN: Not dry. Intact. Turgor - normal. LYMPHATIC: No palpable lymph nodes/no lymphedema. MUSCULOSKELETAL: Normal joints with no swelling. Muscle tone is normal. ASSESSMENT: 1. Acute respiratory failure 2. Pneumonia 3. Atelectasis 4. Congestive heart failure 5. Chronic lung disease 6. Hypertension 7. Diabetes mellitus 8. Generalized osteoarthritis, 9. Rheumatoid arthritis PLAN: 1. Give IV Lasix 20 2. 125mg Solu-Cortef IV Q 8 hours combination of Rocephin and Zithromax 3. NEBS treatment with Xopenex 4. Pulmicort 5. Oxygen 2-3 liters 6. Telemetry 7. EKG 8. Daily CBC and CMP The patient's in the room, explained the diagnosis PROGNOSIS: Guarded TIME SPENT: More than 30 minutes. Plan and coordination of the patient's care discussed in the presence of nurse. MATTHEW
--- NOTE | 2017-07-14 15:00 | PN ---
DATE OF SERVICE: 07/13/17 SUBJECTIVE: 82 year old white male hospitalized with fever, chills, pneumonia and also had pulmonary edema with respiratory failure. This morning he is sitting up eating. PHYSICAL EXAMINATION: VITAL: Oxygen saturation is 93% on room air. HEENT: Head normocephalic, atraumatic. Eyes: Extraocular muscles are intact. Pupils are equal, round and reactive to light and accommodation. Ears: No lesions. Nose appeared normal. Throat: No exudate or erythema. NECK: Supple. No JVD, no carotid bruit. No lymphadenopathy or thyromegaly. LUNGS: Good air entry with very faint mild wheeze. Clear to auscultation. Percussion note normal. Chest symmetrical. HEART: S1, S2, no S3. Grade I/ systolic murmurs. No cyanosis or clubbing. No ascites. Pulses: Dorsalis pedis and posterior tibial pulses +1 to +2 both sides. ABDOMEN: Soft. Nontender. Bowel sounds active. No CVA tenderness. No mass felt. EXTREMITIES: No edema. Full range of motion of all extremities, equal. NEUROLOGIC: No focal deficit. Cranial nerves II through XII are grossly intact. No headache, no double vision or headache. SKIN: Not dry. Intact. Turgor - normal. LYMPHATIC: No palpable lymph nodes/no lymphedema. MUSCULOSKELETAL: Normal joints with no swelling. Muscle tone is normal. CONDITION: Improving. Stable LABS: Creatinine 1.3, BUN 23. PLAN: 1. Explained about congestive heart failure education carried out CHF 2. Advised to cut down on salt Seen and examined with Nurse Practitioner. TIME SPENT: More than 30 minutes. Plan and coordination of the patient's care discussed in the presence of nurse. MATTHEW
[2017-07-14] MEDS: AMBIEN PO SCH (21:20)
[2017-07-14] MEDS: ASPIRIN EC PO SCH (21:21)
[2017-07-14] MEDS: ZOCOR PO SCH (21:22)
[2017-07-15] MEDS: DUONEB NEB SCH ×5 (00:40→23:11)
[2017-07-15 05:13] LABS: BASOPHILS % (AUTO) 0.2 % (0.0-3.0); EOSINOPHILS % (AUTO) 0.1 % (0.0-7.0); HEMOGLOBIN 11.9 g/dl (14.0-18.0); LYMPHOCYTES # (AUTO) 0.7 K/uL (0.60-3.4); LYMPHOCYTES % (AUTO) 6.5 (10.0-50.0); MEAN CORPUSCULAR HEMOGLOBIN 22.7 pg (27.0-31.0); MEAN CORPUSCULAR HGB CONC 31.3 (31.8-35.4); MEAN CORPUSCULAR VOLUME 72.4 fl (80.0-94.0); MONOCYTES # (AUTO) 0.4 K/uL (0.4-2.0); MONOCYTES % (AUTO) 3.9 (0-10); NEUTROPHILS % (AUTO) 88.3; PLATELET COUNT 219 10^3/uL (140-440); RED BLOOD COUNT 5.25 10^6/ul (4.70-6.10); WHITE BLOOD COUNT 10.19 K/ul (4.2-10.2)
[2017-07-15 05:30] LABS: ALBUMIN 2.8 g/dL (3.4-5.0); ALBUMIN/GLOBULIN RATIO 0.8; ANION GAP 14.6; BILIRUBIN,TOTAL 0.77 mg/dL (0.00-1.20); BUN/CREATININE RATIO 24.54; CALCIUM 8.9 mg/dL (8.2-10.2); CREATININE 1.1 mg/dL (0.60-1.10); POTASSIUM 3.6 mmol/L (3.5-5.1); TOTAL PROTEIN 6.3 g/dL (5.8-8.1)
[2017-07-15] MEDS: PRILOSEC PO SCH (06:10)
[2017-07-15] MEDS: SYNTHROID PO SCH ×2 (06:10)
[2017-07-15] MEDS: ROCEPHIN 1 GM in SODIUM CHLORIDE 50 ML IV SCH (08:48)
[2017-07-15] MEDS: CYMBALTA PO SCH (08:49)
[2017-07-15] MEDS: NON-FORMULARY MEDICATION (Mometasone/Formoterol [Dulera 200 Mcg/5 Mcg Inhaler] 2 PUFF) IH SCH ×2 (08:49→20:29)
[2017-07-15] MEDS: CATAPRES PO SCH ×3 (08:49→20:29)
[2017-07-15] MEDS: COZAAR PO SCH (08:49)
[2017-07-15] MEDS: COREG PO SCH ×2 (08:49→16:48)
[2017-07-15] MEDS: DETROL LA PO SCH (08:49)
[2017-07-15] MEDS: NORVASC PO SCH (08:50)
[2017-07-15] MEDS: K-DUR PO SCH ×2 (08:50→16:48)
[2017-07-15] MEDS: AMARYL PO SCH (08:50)
[2017-07-15] MEDS: BUMEX PO SCH (08:50)
[2017-07-15] MEDS: PREDNISONE PO SCH ×3 (08:50→16:48)
[2017-07-15] MEDS ORDERED: LASIX IVP STA (11:31)
[2017-07-15] MEDS: HUMULIN R SUBCUT PRN ×3 (11:43→20:24)
[2017-07-15] MEDS: ASPIRIN EC PO SCH (20:29)
[2017-07-15] MEDS: AMBIEN PO SCH (20:29)
[2017-07-15] MEDS: ZOCOR PO SCH (20:29)
[2017-07-16] MEDS: DUONEB NEB SCH ×4 (05:03→23:07)
[2017-07-16 05:23] LABS: BASOPHILS % (AUTO) 0.2 % (0.0-3.0); EOSINOPHILS % (AUTO) 0.1 % (0.0-7.0); HEMATOCRIT 38.5 % (42.0-52.0); HEMOGLOBIN 11.9 g/dl (14.0-18.0); LYMPHOCYTES # (AUTO) 0.9 K/uL (0.60-3.4); LYMPHOCYTES % (AUTO) 9.6 (10.0-50.0); MEAN CORPUSCULAR HEMOGLOBIN 22.2 pg (27.0-31.0); MEAN CORPUSCULAR HGB CONC 30.9 (31.8-35.4); MEAN CORPUSCULAR VOLUME 71.7 fl (80.0-94.0); MONOCYTES # (AUTO) 0.6 K/uL (0.4-2.0); MONOCYTES % (AUTO) 6.9 (0-10); NEUTROPHILS # (AUTO) 7.7 K/ul (2.0-6.9); NEUTROPHILS % (AUTO) 82.2; PLATELET COUNT 218 10^3/uL (140-440); RED BLOOD COUNT 5.37 10^6/ul (4.70-6.10); WHITE BLOOD COUNT 9.34 K/ul (4.2-10.2)
[2017-07-16] MEDS: HUMULIN R SUBCUT PRN ×4 (05:43→19:47)
[2017-07-16 05:44] LABS: ALBUMIN 2.9 g/dL (3.4-5.0); ALBUMIN/GLOBULIN RATIO 0.88; ANION GAP 11.7; BILIRUBIN,TOTAL 0.7 mg/dL (0.00-1.20); BUN/CREATININE RATIO 24.34; CALCIUM 8.9 mg/dL (8.2-10.2); CREATININE 1.15 mg/dL (0.60-1.10); POTASSIUM 3.7 mmol/L (3.5-5.1); TOTAL PROTEIN 6.2 g/dL (5.8-8.1)
[2017-07-16] MEDS: SYNTHROID PO SCH ×2 (05:44)
[2017-07-16] MEDS: PRILOSEC PO SCH (05:44)
[2017-07-16] MEDS: K-DUR PO SCH ×2 (08:15→16:33)
[2017-07-16] MEDS: CATAPRES PO SCH ×3 (08:15→20:59)
[2017-07-16] MEDS: DETROL LA PO SCH (08:15)
[2017-07-16] MEDS: BUMEX PO SCH (08:15)
[2017-07-16] MEDS: NORVASC PO SCH (08:15)
[2017-07-16] MEDS: PREDNISONE PO SCH ×3 (08:16→16:33)
[2017-07-16] MEDS: AMARYL PO SCH (08:16)
[2017-07-16] MEDS: CYMBALTA PO SCH (08:16)
[2017-07-16] MEDS: COREG PO SCH ×2 (08:16→16:33)
[2017-07-16] MEDS: COZAAR PO SCH (08:16)
[2017-07-16] MEDS: NON-FORMULARY MEDICATION (Mometasone/Formoterol [Dulera 200 Mcg/5 Mcg Inhaler] 2 PUFF) IH SCH ×2 (08:18→20:58)
[2017-07-16] MEDS: ROCEPHIN 1 GM in SODIUM CHLORIDE 50 ML IV SCH (08:33)
[2017-07-16 13:29] LABS: ABG BASE EXCESS 3 (-2.0-2.0); ABG HCO3 26 (22.0-26.0); ABG PH 7.49 (7.35-7.45); ABG TCO2 27 (22.0-28.0)
[2017-07-16] MEDS: ASPIRIN EC PO SCH (20:58)
[2017-07-16] MEDS: ZOCOR PO SCH (20:59)
[2017-07-16] MEDS: AMBIEN PO SCH (20:59)
[2017-07-17 04:49] LABS: BASOPHILS % (AUTO) 0.2 % (0.0-3.0); HEMOGLOBIN 12.4 g/dl (14.0-18.0); LYMPHOCYTES # (AUTO) 0.8 K/uL (0.60-3.4); LYMPHOCYTES % (AUTO) 8.2 (10.0-50.0); MEAN CORPUSCULAR HEMOGLOBIN 22.8 pg (27.0-31.0); MEAN CORPUSCULAR HGB CONC 31.8 (31.8-35.4); MEAN CORPUSCULAR VOLUME 71.7 fl (80.0-94.0); MONOCYTES # (AUTO) 0.6 K/uL (0.4-2.0); MONOCYTES % (AUTO) 6.2 (0-10); NEUTROPHILS # (AUTO) 8.3 K/ul (2.0-6.9); NEUTROPHILS % (AUTO) 84.4; PLATELET COUNT 204 10^3/uL (140-440); RED BLOOD COUNT 5.44 10^6/ul (4.70-6.10); WHITE BLOOD COUNT 9.85 K/ul (4.2-10.2)
[2017-07-17] MEDS: DUONEB NEB SCH ×2 (05:07→11:01)
[2017-07-17 05:10] LABS: ALBUMIN 2.8 g/dL (3.4-5.0); CALCIUM 8.9 mg/dL (8.2-10.2); POTASSIUM 3.9 mmol/L (3.5-5.1)
[2017-07-17 05:11] LABS: ALBUMIN/GLOBULIN RATIO 0.76; ANION GAP 12.9; BILIRUBIN,TOTAL 0.69 mg/dL (0.00-1.20); BUN/CREATININE RATIO 26.05; CREATININE 1.19 mg/dL (0.60-1.10); TOTAL PROTEIN 6.5 g/dL (5.8-8.1)
[2017-07-17] MEDS: SYNTHROID PO SCH ×2 (05:37)
[2017-07-17] MEDS: PRILOSEC PO SCH (05:37)
[2017-07-17] MEDS: HUMULIN R SUBCUT PRN ×2 (05:38→12:36)
[2017-07-17] MEDS: NORVASC PO SCH (08:34)
[2017-07-17] MEDS: ROCEPHIN 1 GM in SODIUM CHLORIDE 50 ML IV SCH (08:34)
[2017-07-17] MEDS: NON-FORMULARY MEDICATION (Mometasone/Formoterol [Dulera 200 Mcg/5 Mcg Inhaler] 2 PUFF) IH SCH (08:34)
[2017-07-17] MEDS: CATAPRES PO SCH (08:34)
[2017-07-17] MEDS: BUMEX PO SCH (08:34)
[2017-07-17] MEDS: AMARYL PO SCH (08:35)
[2017-07-17] MEDS: COREG PO SCH (08:35)
[2017-07-17] MEDS: PREDNISONE PO SCH ×2 (08:35→12:44)
[2017-07-17] MEDS: COZAAR PO SCH (08:35)
[2017-07-17] MEDS: K-DUR PO SCH (08:35)
[2017-07-17] MEDS: CYMBALTA PO SCH (08:35)
[2017-07-17] MEDS: DETROL LA PO SCH (08:35)
[2017-07-17 09:50] VITALS: BP 117/67; TEMP 98.1
--- NOTE | 2017-07-17 10:21 | DI ---
EXAM: PA and lateral views of the chest HISTORY: Cough with shortness of breath on exertion COMPARISON: Chest x-ray 07/14/2017 and multiple priors FINDINGS: The cardiomediastinal silhouette is unchanged enlarged. There is atherosclerotic disease of the aorta. There is no pneumothorax. There is blunting the costophrenic angles bilaterally. Ther e is mild pulmonary vascular indistinctness with ground-glass consolidations in the lung bases . The osseous structures demonstrate mild degenerative disease. IMPRESSION: 1. Heart is enlarged with pulmonary vascular indistinctness and small pleural effusions suggestive o f edema. This has improved in comparison to prior study. 2. Bilateral lower lobe ground-glass consolidations suggestive of atelectasis have improved.
--- NOTE | 2017-07-17 10:50 | PCM.PROG ---
Attending Provider: ATTENDING PROVIDER: Dr. SPARKLE MART This patient is seen with Cary Xavier, Nurse Practitioner. DATE OF SERVICE: 07/17/17 SUBJECTIVE: This 82 year old WHITE/ M was hospitalized 07/12/17. the patient is lying in bed, alert. He feels good today. Chest x-ray scheduled today. He states he is ready to go home. He has been eating well breathing better than usual. REVIEW OF SYSTEMS: CONSTITUTIONAL: No night sweats. No fatigue, malaise, lethargy. No fever or chills. HEENT: Eyes: No visual changes. No eye pain. No eye discharge. ENT: No runny nose. No epistaxis. No sinus pain. No odynophagia. No congestion. RESPIRATORY: Shortness of breath is improved. No cough, no congestion. No hemoptysis. CARDIOVASCULAR: No angina symptoms. No CHF symptoms. No atypical chest pain for CAD. No palpitations. No orthopnea.. GASTROINTESTINAL: No abdominal pain. No nausea or vomiting. No diarrhea or constipation. No hematemesis. No hematochezia. GENITOURINARY: No urgency. No frequency. No dysuria. No hematuria. No obstructive symptoms. No discharge. No pain. No significant abnormal bleeding. MUSCULOSKELETAL: No musculoskeletal pain; no joint swelling. NEUROLOGICAL: Awake, alert, oriented to time, place and person. No headache. No neck pain. No syncope. No seizures. No dizziness. PSYCHIATRIC: Not anxious. No depression. No suicidal thoughts. No homicidal thoughts. SKIN: No rash. No lesions. No wounds. ENDOCRINE: No unexplained weight loss. No weight gain. HEMATOLOGIC/LYMPHATIC: No anemia. No purpura. No petechiae. No prolonged or excessive bleeding. No palpable lymph nodes. PHYSICAL EXAMINATION: GENERAL: The patient is awake, alert and oriented, lying in bed in no distress. VITAL SIGNS: Temperature 97.8 F, Pulse 63, Respiratory Rate 16, BP 134/71, Pulse Ox 98% HEENT: Head normocephalic, atraumatic. Eyes: Extraocular muscles are intact. Pupils are equal, round and reactive to light and accommodation. Ears: No lesions. Nose appeared normal. Throat: No exudate or erythema. NECK: Supple. No JVD, no carotid bruit. No lymphadenopathy or thyromegaly. LUNGS: Diminished breath sounds bilaterally. Clear to auscultation. Percussion note normal. Chest symmetrical. HEART: S1, S2, no S3. No murmurs. No cyanosis or clubbing. No ascites. Pulses: Dorsalis pedis and posterior tibial pulses +1 to +2 both sides. ABDOMEN: Soft. Non-tender. Bowel sounds active. No CVA tenderness. No mass felt. EXTREMITIES: No edema. Full range of motion of all extremities, equal. NEUROLOGIC: No focal deficit. Cranial nerves II through XII are grossly intact. No headache, no double vision or headache. SKIN: Not dry. Intact. Turgor-normal. LYMPHATIC: No palpable lymph nodes/no lymphedema. MUSCULOSKELETAL: Normal joints with no swelling. Muscle tone is normal. LAB REVIEW: 07/17/17 04:20 07/17/17 04:20 07/17/17 04:20: Sodium 138, Potassium 3.9, Chloride 104, Carbon Dioxide 25, Anion Gap 12.9, BUN 31 H, Creatinine 1.19 H, Estimated GFR (MDRD) 59.00, BUN/ Creatinine Ratio 26.05, Glucose 239 H, Calcium 8.9, Total Bilirubin 0.69, AST 17 , ALT 20, Alkaline Phosphatase 76, Total Protein 6.5, Albumin 2.8 L, Globulin 3.7, Albumin/Globulin Ratio 0.76 07/17/17 04:20: WBC 9.85, RBC 5.44, Hgb 12.4 L, Hct 39.0 L, MCV 71.7 L, MCH 22.8 L, MCHC 31.8, RDW Coeff of Marek 22.0 H, Plt Count 204, Immature Gran % (Auto ) 1.0, Neut % (Auto) 84.4, Lymph % (Auto) 8.2 L, [place] % (Auto) 6.2, Eos % (Auto ) 0.0, Baso % (Auto) 0.2, Immature Gran # (Auto) 0.1, Neut # 8.3 H, Lymph # 0.8 , Dawes # 0.6, Eos # 0.0, Baso # 0.0 07/16/17 11:13: Puncture Site R rad, O2 Saturation 94.0 L, ABG pH 7.49 H, ABG pCO2 34.0 L, ABG pO2 66.0 L, ABG HCO3 26, ABG Total CO2 27, ABG Base Excess 3 H , Storm Test +, FiO2 % 21.0 ASSESSMENT: 1. Acute respiratory failure resolving 2. CHF resolved 3. Pneumonia clinically under control PLAN: 1. Repeat chest x-ray this morning 2. Possible d/c home Plan and coordination of the patient's care discussed in the presence of Tight Cooper and nurse. CONDITION: Stable SCRIBED BY: HARRY VERA Oven Baker scribed while in presence of service performed by Dr. Mart/Cary Xavier APRN on 07/17/17 ([id number])
--- NOTE | 2017-07-17 14:08 | CM.DICTOOL ---
ADMISSION: 07/12/17 10:49 DISCHARGE: July 17, 2017 DATE OF SERVICE: 07/17/17 FINAL DIAGNOSIS Pneumonia, right lung Pulmonary Edema Severe COPD, Oxygen (PFT 08/2016) Pulmonary Fibrosis Hypertension Chronic Leg Edema Diabetes Mellitus, type 2 Hypothyroid Dyslipidemia Neuropathy Severe Osteoarthritis LVH with LVEF 60% (Echo 05/2017) Chronic Kidney Disease Depression ED Bilateral TKR Left Foot Surgery Umbilical Hernia Repair Inguinal Hernia Repair Stage 2 Pressure Area to Right Buttock LAST VITALS Temp Pulse Resp BP Pulse Ox 98.1 F 65 20 117/67 99 07/17/17 09:49 07/17/17 09:49 07/17/17 09:49 07/17/17 09:49 07/17/17 09:49 ACTIVE HOME MEDICATIONS Acetaminophen/Hydrocodone Bitart ([place] 7.5-325) 1 tab PO TID PRN PRN Reason: pain Albuterol Sulfate (Proair Hfa) 2 puff IH QID PRN PRN Reason: Wheezing Albuterol/Ipratropium (Duoneb) 1 vial NEB RTQ6H [facility] Last Admin: 07/17/17 11:01 Dose: 1 vial Amlodipine Besylate (Norvasc) 10 mg PO DAILY [facility] Last Admin: 07/17/17 08:34 Dose: 10 mg Aspirin (Aspirin Ec) 81 mg PO BEDTIME [facility] Last Admin: 07/16/17 20:58 Dose: 81 mg Bumetanide (Bumex) 2 mg PO DAILY [facility] Last Admin: 07/17/17 08:34 Dose: 2 mg Carvedilol (Coreg) 12.5 mg PO BIDWM [facility] Last Admin: 07/17/17 08:35 Dose: 12.5 mg Clonidine (Catapres) 0.2 mg PO TID [facility] Last Admin: 07/17/17 08:34 Dose: 0.2 mg Duloxetine HCl (Cymbalta) 30 mg PO DAILY [facility] Last Admin: 07/17/17 08:35 Dose: 30 mg Glimepiride (Amaryl) 2 mg PO DAILY [facility] Last Admin: 07/17/17 08:35 Dose: 2 mg Levothyroxine Sodium (Synthroid) 100 mcg PO QDAC [facility] Last Admin: 07/17/17 05:37 Dose: 100 mcg Levothyroxine Sodium (Synthroid) 25 mcg PO QDAC [facility] Last Admin: 07/17/17 05:37 Dose: 25 mcg Losartan Potassium (Cozaar) 100 mg PO DAILY [facility] Last Admin: 07/17/17 08:35 Dose: 100 mg Non-Formulary Medication (Mometasone/Formoterol [Dulera 200 Mcg/5 Mcg Inhaler]) 2 puff IH BID [facility] Last Admin: 07/17/17 08:34 Dose: 2 puff Omeprazole (Prilosec) 20 mg PO QDAC [facility] Last Admin: 07/17/17 05:37 Dose: 20 mg Potassium Chloride (K-Dur) 20 meq PO BIDWM [facility] Last Admin: 07/17/17 08:35 Dose: 20 meq Simvastatin (Zocor) 5 mg PO BEDTIME [facility] Last Admin: 07/16/17 20:59 Dose: 5 mg Tolterodine Tartrate (Detrol La) 4 mg PO DAILY [facility] Last Admin: 07/17/17 08:35 Dose: 4 mg Zolpidem Tartrate (Ambien) 5 mg PO BEDTIME [facility] Last Admin: 07/16/17 20:59 Dose: 5 mg ALLERGIES No Known Allergies Allergy (Verified 07/12/17 08:32) NEW PRESCRIPTIONS: Keflex 500 mg TID for 7 days Prednisone 10 mg TID for 2 days, then BID for 5 days Lasix 40 mg take 1 tablet 2-3 times weekly if needed for leg swelling Albuterol 0.83% for nebulizer treatment every 6 hours SMOKING: Not Applicable DISEASE SPECIFIC EDUCATION: Chronic leg edema/leg elevation Pulmonary Edema Pneumonia Prescriptions Nebulizer Treatments Short term use of oral steroids and risk of GI irritation, bone demineralization LAB REVIEW: 07/17/17 04:20 07/17/17 04:20 07/17/17 04:20: Sodium 138, Potassium 3.9, Chloride 104, Carbon Dioxide 25, Anion Gap 12.9, BUN 31 H, Creatinine 1.19 H, Estimated GFR (MDRD) 59.00, BUN/ Creatinine Ratio 26.05, Glucose 239 H, Calcium 8.9, Total Bilirubin 0.69, AST 17 , ALT 20, Alkaline Phosphatase 76, Total Protein 6.5, Albumin 2.8 L, Globulin 3.7, Albumin/Globulin Ratio 0.76 07/17/17 04:20: WBC 9.85, RBC 5.44, Hgb 12.4 L, Hct 39.0 L, MCV 71.7 L, MCH 22.8 L, MCHC 31.8, RDW Coeff of Marek 22.0 H, Plt Count 204, Immature Gran % (Auto ) 1.0, Neut % (Auto) 84.4, Lymph % (Auto) 8.2 L, [place] % (Auto) 6.2, Eos % (Auto ) 0.0, Baso % (Auto) 0.2, Immature Gran # (Auto) 0.1, Neut # 8.3 H, Lymph # 0.8 , [place] # 0.6, Eos # 0.0, Baso # 0.0 07/16/17 11:13: Puncture Site R rad, O2 Saturation 94.0 L, ABG pH 7.49 H, ABG pCO2 34.0 L, ABG pO2 66.0 L, ABG HCO3 26, ABG Total CO2 27, ABG Base Excess 3 H , Storm Test +, FiO2 % 21.0 PLAN: Discharge home Diet: Consistent Carbohydrates Activity: Gradually Resume as tolerated Continue to use oxygen at 2 liters per cannula at night and during the day Use Albuterol nebulizer treatment every 6 hours for shortness of air May continue to use ProAir inhaler when outside of the home Continue to check your blood sugars at least 2-3 times daily Elevate legs above the level of the heart at night and when sitting in the chair Continue medications as listed on nursing discharge information sheet An appointment is scheduled for July 21 at 11:[address] Olivier/ Cary Xavier APRN Mr. Oneill is alert and oriented x 3. He is independent with activities of daily living. He transfers with stand by assistance of nursing and is ambulatory per self with use of a standard walking cane. He continues to use supplemental oxygen at 2 Liters per nasal cannula due to shortness of air with exertion. He has oxygen available at home thru [employer] Mr. Oneill denies abdominal pain or nausea. Meal intakes are good at 100%. Skin is intact except for a Stage 2 Decubitus to the right gluteal fold (0.5 cm by 0.5 cm) that was present on admission. He is continent of bowel and bladder, but reports urinary dribbling requiring him to wear a depends brief. Luan K. Olivier, MD Cary Xavier, [employer]GER
--- NOTE | 2017-07-17 14:38 | PN ---
DATE OF SERVICE: 07/15/17 SUBJECTIVE: 82-year-old white male hospitalized with pneumonia, congestive heart failure. The patient's chest x-ray done yesterday showed remarkable improvement in CHF and also pneumonitis. REVIEW OF SYSTEMS: CONSTITUTIONAL: The patient is feeling a lot better. Strength has improved. No night sweats. No fatigue, malaise, lethargy. No fever or chills. HEENT: Eyes: No visual changes. No eye pain. No eye discharge. ENT: No runny nose. No epistaxis. No sinus pain. No sore throat. No odynophagia. No congestion. RESPIRATORY: No cough, no congestion. No hemoptysis. No shortness of breath. CARDIOVASCULAR: No angina symptoms. No CHF symptoms. No atypical chest pain for CAD. No palpitations. No orthopnea. GASTROINTESTINAL: Appetite has improved. No abdominal pain. No nausea or vomiting. No diarrhea or constipation. No hematemesis. No hematochezia. GENITOURINARY: No urgency. No frequency. No dysuria. No hematuria. No obstructive symptoms. No discharge. No pain. No significant abnormal bleeding. MUSCULOSKELETAL: No musculoskeletal pain; no joint swelling. NEUROLOGICAL: No headache. No neck pain. No syncope. No seizures. No dizziness. PSYCHIATRIC: Not anxious. No depression. No suicidal thoughts. No homicidal thoughts. SKIN: No rash. No lesions. No wounds. ENDOCRINE: No unexplained weight loss. No weight gain. HEMATOLOGIC/LYMPHATIC: No anemia. No purpura. No petechiae. No prolonged or excessive bleeding. No palpable lymph nodes. PHYSICAL EXAMINATION: GENERAL: The patient is oriented to time, place and person. VITAL SIGNS: Temperature 97.6, pulse 67, respiratory rate 20, BP 147/86, pulse ox 94% with 2L. HEENT: Head normocephalic, atraumatic. Eyes: Extraocular muscles are intact. Pupils are equal, round and reactive to light and accommodation. Ears: No lesions. Nose appeared normal. Throat: No exudate or erythema. NECK: Supple. No JVD, no carotid bruit. No lymphadenopathy or thyromegaly. LUNGS: Decreased breath sounds but clear to auscultation with diminished air entry both lower lung urbina. Percussion note normal. Chest symmetrical. HEART: S1, S2, no S3. No murmurs. No cyanosis or clubbing. No ascites. Pulses: Dorsalis pedis and posterior tibial pulses +1 to +2 both sides. ABDOMEN: Soft. Nontender. Bowel sounds active. No CVA tenderness. No mass felt. EXTREMITIES: Trace edema. Full range of motion of all extremities, equal. NEUROLOGIC: No focal deficit. Cranial nerves II through XII are grossly intact. No headache, no double vision or headache. SKIN: Not dry. Intact. Turgor - normal. LYMPHATIC: No palpable lymph nodes/no lymphedema. MUSCULOSKELETAL: Normal joints with no swelling. Muscle tone is normal. LABS: Hemoglobin 11.9, hematocrit 38, WBC 10,000, normal differential. Creatinine 1.1 , BUN 27, potassium 3.6. ASSESSMENT: 1. ACUTE RESPIRATORY FAILURE SEEMS TO HAVE RESOLVED 2. PNEUMONIA SEEMS TO BE UNDER CONTROL 3. CHF CONTROLLED PLAN: Education carried out about CHF, also about hypoxemia and respiratory failure, about chronic lung disease. Advised cardiac or cardiopulmonary rehab. Discussed in detail. The patient will think about it. CONDITION: Stable TIME SPENT: More than 30 minutes. Plan and coordination of the patient's care discussed in the presence of nurse. MATTHEW
--- NOTE | 2017-07-17 15:45 | PN ---
DATE OF SERVICE: 07/16/17 SUBJECTIVE: 82 year old white male hospitalized with congestive heart failure, pneumonia and acute renal failure with fever and chills. The patient's condition has improved. He is feels a lot better and wants to go home. REVIEW OF SYSTEMS: CONSTITUTIONAL: No night sweats. No fatigue, malaise, lethargy. No fever or chills. HEENT: Eyes: No visual changes. No eye pain. No eye discharge. ENT: No runny nose. No epistaxis. No sinus pain. No sore throat. No odynophagia. No congestion. RESPIRATORY: No cough, no congestion. No hemoptysis. No shortness of breath. CARDIOVASCULAR: No angina symptoms. No CHF symptoms. No atypical chest pain for CAD. No palpitations. No orthopnea. GASTROINTESTINAL: No abdominal pain. No nausea or vomiting. No diarrhea or constipation. No hematemesis. No hematochezia. GENITOURINARY: No urgency. No frequency. No dysuria. No hematuria. No obstructive symptoms. No discharge. No pain. No significant abnormal bleeding. MUSCULOSKELETAL: No musculoskeletal pain; no joint swelling. NEUROLOGICAL: No headache. No neck pain. No syncope. No seizures. No dizziness. PSYCHIATRIC: Not anxious. No depression. No suicidal thoughts. No homicidal thoughts. SKIN: No rash. No lesions. No wounds. ENDOCRINE: No unexplained weight loss. No weight gain. HEMATOLOGIC/LYMPHATIC: No anemia. No purpura. No petechiae. No prolonged or excessive bleeding. No palpable lymph nodes. PHYSICAL EXAMINATION: VITAL SIGNS: Temperature 97.4, pulse 63, respiratory rate 15, blood pressure 150/90 and pulse ox 99%. HEENT: Head normocephalic, atraumatic. Eyes: Extraocular muscles are intact. Pupils are equal, round and reactive to light and accommodation. Ears: No lesions. Nose appeared normal. Throat: No exudate or erythema. NECK: Supple. No JVD, no carotid bruit. No lymphadenopathy or thyromegaly. LUNGS: Decreased breath sounds but clear to auscultation. Percussion note normal. Chest symmetrical. HEART: S1, S2, no S3. No murmurs. No cyanosis or clubbing. No ascites. Pulses: Dorsalis pedis and posterior tibial pulses +1 to +2 both sides. ABDOMEN: Soft. Nontender. Bowel sounds active. No CVA tenderness. No mass felt. EXTREMITIES: No edema. Full range of motion of all extremities, equal. NEUROLOGIC: No focal deficit. Cranial nerves II through XII are grossly intact. No headache, no double vision or headache. SKIN: Not dry. Intact. Turgor - normal. LYMPHATIC: No palpable lymph nodes/no lymphedema. MUSCULOSKELETAL: Normal joints with no swelling. Muscle tone is normal. LABS: Hgb 11.9, hct 38, WBC 9,300 normal differential, creatinine 1.1, BUN 28, potassium 3.7, BNP 264 ASSESSMENT: 1. Acute renal failure seems to have subsided 2. Pneumonia seems to be under control he is afebrile and not coughing much at all 3. CHF under control BNP has always been borderline PLAN: 1. We are going to be an ABG on room air 2. Continue Diuretic 3. Blood pressure fluctuates this morning systolic was 156, when I was examining the patient the nurse reported that systolic blood pressure was close to 100. 4. Educated about CHF in detail. 5. Also educated about his COPD and low oxygen level, happens with pneumonia and CHF together 6. Blood sugar is high because of steroids CONDITION: Stable TIME SPENT: More than 30 minutes. Plan and coordination of the patient's care discussed in the presence of nurse. MATTHEW
--- NOTE | 2017-07-18 06:49 | PN ---
DATE OF SERVICE: 07/17/17 - DISCHARGE NOTE SUBJECTIVE: 82-year-old white male hospitalized with pneumonia, acute respiratory failure, also had CHF. The patient has been successfully treated for both pneumonia and CHF. His leg edema has resolved. REVIEW OF SYSTEMS: CONSTITUTIONAL: No night sweats. No fatigue, malaise, lethargy. No fever or chills. HEENT: Eyes: No visual changes. No eye pain. No eye discharge. ENT: No runny nose. No epistaxis. No sinus pain. No sore throat. No odynophagia. No congestion. RESPIRATORY: No cough, no congestion. No hemoptysis. No shortness of breath. CARDIOVASCULAR: No angina symptoms. No CHF symptoms. No atypical chest pain for CAD. No palpitations. No orthopnea. GASTROINTESTINAL: No abdominal pain. No nausea or vomiting. No diarrhea or constipation. No hematemesis. No hematochezia. GENITOURINARY: No urgency. No frequency. No dysuria. No hematuria. No obstructive symptoms. No discharge. No pain. No significant abnormal bleeding. MUSCULOSKELETAL: No musculoskeletal pain; no joint swelling. NEUROLOGICAL: No headache. No neck pain. No syncope. No seizures. No dizziness. PSYCHIATRIC: Not anxious. No depression. No suicidal thoughts. No homicidal thoughts. SKIN: No rash. No lesions. No wounds. ENDOCRINE: No unexplained weight loss. No weight gain. HEMATOLOGIC/LYMPHATIC: No anemia. No purpura. No petechiae. No prolonged or excessive bleeding. No palpable lymph nodes. PHYSICAL EXAMINATION: VITAL SIGNS: Temperature 97.8, pulse 63, respiratory rate 16, BP 134/71, pulse ox 98%. HEENT: Head normocephalic, atraumatic. Eyes: Extraocular muscles are intact. Pupils are equal, round and reactive to light and accommodation. Ears: No lesions. Nose appeared normal. Throat: No exudate or erythema. NECK: Supple. No JVD, no carotid bruit. No lymphadenopathy or thyromegaly. LUNGS: Decreased breath sounds but clear to auscultation. Percussion note normal. Chest symmetrical. HEART: S1, S2, no S3. No murmurs. No cyanosis or clubbing. No ascites. Pulses: Dorsalis pedis and posterior tibial pulses +1 to +2 both sides. ABDOMEN: Soft. Nontender. Bowel sounds active. No CVA tenderness. No mass felt. EXTREMITIES: No edema. Full range of motion of all extremities, equal. NEUROLOGIC: No focal deficit. Cranial nerves II through XII are grossly intact. No headache, no double vision or headache. SKIN: Not dry. Intact. Turgor - normal. LYMPHATIC: No palpable lymph nodes/no lymphedema. MUSCULOSKELETAL: Normal joints with no swelling. Muscle tone is normal. RADIOLOGIC: The patient's chest x-ray showed improvement. PLAN: 1. The patient will be discharged home on Keflex and Prednisone. EDUCATION CARRIED OUT ABOUT: CHF, chronic lung disease. Advised to join cardiopulmonary rehab. CONDITION: Stable TIME SPENT: More than 30 minutes. The patient was seen and examined with nurse practitioner. Plan and coordination of the patient's care discussed in the presence of nurse. MATTHEW
--- NOTE | 2017-07-18 06:54 | PN ---
CODING FOR BILLIN07/12/17 LEVEL 5 07/13/17 EXTENSIVE 07/14/17 INTERMEDIATE 07/15/17 INTERMEDIATE 07/16/17 INTERMEDIATE 07/17/17 DISCHARGE MTDD
--- NOTE | 2017-07-18 11:56 | DS ---
DATE OF SERVICE: 07/17/17 FINAL DIAGNOSIS: 1. PNEUMONIA, RIGHT LUNG 2. PULMONARY EDEMA 3. SEVERE COPD, OXYGEN (PFT 08/2016) 4. PULMONARY FIBROSIS 5. HYPERTENSION 6. CHRONIC LEG EDEMA 7. DIABETES MELLITUS TYPE 2 8. HYPOTHYROID 9. DYSLIPIDEMIA 10. NEUROPATHY 11. SEVERE OSTEOARTHRITIS 12. LVH WITH LVEF 60% (ECHO 05/2017) 13. CHRONIC KIDNEY DISEASE 14. DEPRESSION 15. ED 16. BILATERAL TKR 17. LEFT FOOT SURGERY 18. UMBILICAL HERNIA REPAIR 19. INGUINAL HERNIA REPAIR 20. STAGE 2 PRESSURE AREA TO RIGHT BUTTOCK DISCHARGE INSTRUCTIONS: 1. Followup appointment with Dr. Olivier/Cary Xavier APRN has been scheduled for July 21 at 11:15 a.m. 2. Continue to use oxygen at 2L/cannula at night and during the day. 3. Use Albuterol nebulizer treatment every 6 hours for shortness of air. 4. May continue to use ProAir inhaler when outside of the home. 5. Continue to check your blood sugars at least 2-3 times daily 6. Elevate legs above the level of the heart at night and when sitting in the chair 7. Continue medications as listed on nursing discharge information sheet MEDICATIONS AT DISCHARGE: Acetaminophen/Hydrocodone ([place] 7.5-325) one tab p.o. t.i.d. p.r.n. Albuterol (ProAir Hfa) two puff IH q.i.d. p.r.n. Albuterol/Ipratropium (Duoneb) one vial NEB RT q.6h [facility] Norvasc 10 mg p.o. daily [facility] Aspirin 81 mg p.o. bedtime [facility] Bumex 2 mg p.o. daily [facility] Coreg 12.5 mg p.o. b.i.d. with meal [facility] Catapres 0.2 mg p.o. t.i.d. GERRI Cymbalta 30 mg p.o. daily [facility] Amaryl 2 mg p.o. daily [facility] Synthroid 25 mcg p.o. q.d a.c. GERRI Cozaar 100 mg p.o. daily [facility] Mometasone/Formoterol (Dulera 200 mcg/5 mcg inhaler) two puff IH b.i.d. GERRI Prilosec 20 mg p.o. q.d. a.c. [facility]RI K-Dur 20 mEq p.o. b.i.d. with meal [facility] Zocor 5 mg p.o. bedtime G[facility] Detrol LA 4 mg p.o. daily [facility] Ambien 5 mg p.o. bedtime [facility] NEW PRESCRIPTIONS: Keflex 500 mg t.i.d. times 7 days Prednisone 10 mg t.i.d. for 2 days then b.i.d. for 5 days Lasix 40 mg take one tablet 2-3 times weekly if needed for leg swelling Albuterol 0.83% for nebulizer treatment every 6 hours DIET INSTRUCTIONS: Consistent Carbohydrates ACTIVITY: Gradually resume as tolerated. SMOKING: Not applicable DISEASE SPECIFIC EDUCATION: Chronic leg edema/leg elevation Pulmonary edema Pneumonia Prescriptions Nebulizer treatments Short-term use of oral steroids and risk of GI irritation, bone dimineralization HOSPITAL COURSE: This is an 82-year-old white male with a history of severe COPD who is oxygen dependent, pulmonary fibrosis and pulmonary edema who presented to the emergency room. He presented to the emergency room complaining of shortness of breath which had worsened through the night. He had minimal cough. Chest x-ray revealed right lung pneumonia with some pulmonary edema. He was subsequently admitted to the [facility] Care Unit where he was placed on IV Zosyn along with IV Solu-Medrol 125 mg IV q.6hr. He was started on Xopenex neb treatments q.6hr. He had +1 edema in his bilateral lower extremities which is chronic on admission. He was given an extra dose of IV Lasix 40 mg on admission and within 24 hours after the IV Lasix and elevating his legs, his leg edema had significantly improved. Over the course of several days, his condition slowly began to improve. He was afebrile after the first 24 hours. His blood pressure improved to normal level. Today, repeat chest x-ray was done this morning which showed improvement in both the pneumonia and the pulmonary edema. This morning the patient reported that he is breathing better than usual. He has been feeling well. He has been on p.o. Prednisone 10 mg t.i.d. for the past two days. Today, temperature 98.1, heart rate 65, respirations 20, BP 117/67, pulse ox 99% on 2L. The patient states that he shows significant improvement with nebulizer machine and would like to have one at home. We will give him a prescription to have a nebulizer machine. He has been up and about for the past two days. The patient did have a Stage 2 decubitus ulcer in his right gluteal fold that was present on admission. We have been doing wound care here. He had been seeing wound care here at [facility] as an outpatient where he had a positive would culture of Enterococcus. This area seems to be improving. He has been eating 75 to 100% of his meals for the past two days. He has no leg edema today on day of discharge. We discussed daily weights, minimizing his salt intake and elevating his legs at night. We will followup with him later on this week in the office. He is discharged in stable condition. TIME SPENT: More than 60 minutes. MATTHEW
== END 2017-07-17 15:45 | disposition home or self-care (01) | DRG 193 ==
LOC: ED 08:21 → SCU 10:49
PROVIDERS: ADMIT Internal Medicine; ATTEND Internal Medicine
DX: J18.1 Lobar pneumonia, unspecified organism (principal); J96.00 Acute respiratory failure, unspecified whether with hypoxia or hypercapnia; J81.0 Acute pulmonary edema; J98.11 Atelectasis; N17.9 Acute kidney failure, unspecified; R06.02 Shortness of breath; R53.1 Weakness; L89.312 Pressure ulcer of right buttock, stage 2; J84.10 Pulmonary fibrosis, unspecified; I10 Essential (primary) hypertension; I51.7 Cardiomegaly; N18.9 Chronic kidney disease, unspecified; E11.9 Type 2 diabetes mellitus without complications; E03.9 Hypothyroidism, unspecified; E78.5 Hyperlipidemia, unspecified; G62.9 Polyneuropathy, unspecified; M06.9 Rheumatoid arthritis, unspecified; M19.90 Unspecified osteoarthritis, unspecified site; F32.9 Major depressive disorder, single episode, unspecified; N52.9 Male erectile dysfunction, unspecified; R50.9 Fever, unspecified; Z98.890 Other specified postprocedural states; Z79.899 Other long term (current) drug therapy; Z99.81 Dependence on supplemental oxygen
CPT/HCPCS: 36415; 80053; 82550; 82803; 82962; 83605; 83880; 84145; 84484; 85008; 85025; 85379; 87040; 87070; 87081; 93005; 93010; 94640; 96365; 96375; 99284

== ENCOUNTER 2017-07-19 09:43 | Outpatient (CLI) ==
[2013-01-17 20:59] VITALS: BP 150/78; TEMP 97.5
== END 2017-07-19 09:44 | disposition home or self-care (01) ==
LOC: WOUND 09:43
PROVIDERS: ATTEND Nurse Practitioner Family
DX: L89.153 Pressure ulcer of sacral region, stage 3 (principal); I10 Essential (primary) hypertension; E11.9 Type 2 diabetes mellitus without complications
CPT/HCPCS: 11042

== ENCOUNTER 2017-07-23 12:57 | Inpatient (IN) ==
[2017-07-23] MEDS ORDERED: DUONEB NEB STA (13:03)
[2017-07-23] MEDS ORDERED: SOLU-MEDROL 125 MG IVP STA (13:03)
[2017-07-23] MEDS ORDERED: VANCOMYCIN 1,000 MG in SODIUM CHLORIDE 200 ML IV STA (13:26)
[2017-07-23] MEDS ORDERED: ZOSYN 3.375 GM 3.375 GM in SODIUM CHLORIDE 50 ML IV STA (13:26)
[2017-07-23] MEDS: SODIUM CHLORIDE 1,000 ML IV STA ×2 (13:58→13:59)
--- NOTE | 2017-07-23 14:44 | DI ---
EXAM: Chest one view HISTORY: Shortness of breath COMPARISON: 07/17/2017 TECHNIQUE: Single view of the chest was performed FINDINGS: New consolidation throughout the right lung. Mild left basilar atelectasis and/or consolid ation. Small right pleural effusion. No visible pneumothorax. Heart is enlarged, unchanged. Media stinal contour unchanged, noting atherosclerosis. IMPRESSION: 1. New consolidation throughout the right lung probably represents pneumonia versus less likely asym metric edema. Small right pleural effusion. 2. Mild left basilar atelectasis and/or pneumonia.
[2017-07-23] MEDS ORDERED: VANCOMYCIN ONE (15:01)
--- NOTE | 2017-07-23 15:02 | ED.PDOC ---
General ED Provider: Dr. ARTUR CHILDERS Chief Complaint: Respiratory Complaint Stated Complaint: Patient states he was recently discharged from the hospital with Pneumonia 3 days ago was treated with Rocephin and zithromax. Comes to the ER with progressive shortness of breath starting this morning. Time Seen by Physician: 13:00 Mode of Arrival: Wheelchair Information Source: Patient, Family Exam Limitations: No limitations Primary Care Provider: SPARKLE MART Nursing and Triage Documentation Reviewed and Agree: Yes Review of Systems - Review Of Systems Constitutional: Reports: Weakness Eyes: Reports: No symptoms Ears, Nose, Mouth, Throat: Reports: No symptoms Respiratory: Reports: Cough, Orthopnea, Short of air, Wheezing Cardiac: Reports: No symptoms GI: Reports: No symptoms : Reports: No symptoms Musculoskeletal: Reports: No symptoms Skin: Reports: No symptoms Neurological: Reports: No symptoms Endocrine: Reports: No symptoms Hematologic/Lymphatic: Reports: No symptoms All Other Systems: Reviewed and Negative Past Medical History - Past Medical History Previously Healthy: No Endocrine: Reports: DM 2, Hypothyroid, Dyslipidemia Cardiovascular: Reports: CAD, Hypertension, CHF, DVT Respiratory: Reports: 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 Denies: Appendectomy, Cholecystectomy, Tonsillectomy, Adenoidectomy, CABG, Stent - Family History Family History: Reports: Unknown - Social History Smoking Status: Never smoker Hx Substance Use: No Alcohol Screening: Occasionally - Immunizations Tetanus Shot up to Date: (unknown) Influenza Vaccine within 12 Months: No Pneumococcal Vaccine up to Date: No Physical Exam - Physical Exam Appearance: Ill-appearing, Well-nourished Ill-appearing: Severe Eyes: ELIZA, EOMI, Conjunctiva clear ENT: Ears normal, Nose normal, Oropharynx normal Neck: Supple Respiratory: Airway patent, Breath sounds diminished, Respirations nonlabored, Rhonchi (right lung ) Cardiovascular: RRR, Pulses normal, No rub, No murmur GI/: Soft, Nontender, No masses, Bowel sounds normal, No Organomegaly Musculoskeletal: Edema (lower ext) Skin: Cyanotic Neurological: Sensation intact, Motor intact Psychiatric: Anxious Critical Care Note - Critical Care Note Total Time (mins): 60 Course - Course Hematology/Chemistry: 07/23/17 13:00 07/23/17 13:00 Orders, Labs, Meds: Lab Review 07/23/17 07/23/17 07/23/17 13:00 13:00 13:00 WBC 30.79 H RBC 5.73 Hgb 13.1 L Hct 41.4 L MCV 72.3 L MCH 22.9 L MCHC 31.6 L RDW Coeff of Marek 22.6 H Plt Count 193 Neutrophils % (Manual) 90.0 H Band Neutrophils % 2.0 Lymphocytes % (Manual) 6.0 L Monocytes % (Manual) 2.0 Plt Morphology Comment Normal Hypochromasia 1+ Anisocytosis 1+ Microcytosis 1+ Ovalocytes 1+ Puncture Site O2 Saturation ABG pH ABG pCO2 ABG pO2 ABG HCO3 ABG Total CO2 ABG Base Excess Storm Test O2 Delivery Device Oxygen Liter Flow FiO2 % Sodium 136 Potassium 4.4 Chloride 98 Carbon Dioxide 26 Anion Gap 16.4 BUN 50 H Creatinine 1.97 H Estimated GFR (MDRD) 33.00 BUN/Creatinine Ratio 25.38 Glucose 282 H Lactic Acid Calcium 8.8 Total Bilirubin 1.83 H AST 11 L ALT 12 Alkaline Phosphatase 78 Total Protein 6.0 Albumin 2.9 L Globulin 3.1 Albumin/Globulin Ratio 0.94 Procalcitonin 1.70 07/23/17 07/23/17 13:00 13:02 WBC RBC Hgb Hct MCV MCH MCHC RDW Coeff of Marek Plt Count Neutrophils % (Manual) Band Neutrophils % Lymphocytes % (Manual) Monocytes % (Manual) Plt Morphology Comment Hypochromasia Anisocytosis Microcytosis Ovalocytes Puncture Site Rr O2 Saturation 82.0 L ABG pH 7.434 ABG pCO2 34.4 L ABG pO2 44.0 L* ABG HCO3 23.1 ABG Total CO2 24 ABG Base Excess -1 Storm Test + O2 Delivery Device Nc Oxygen Liter Flow 2.00 FiO2 % 28.0 Sodium Potassium Chloride Carbon Dioxide Anion Gap BUN Creatinine Estimated GFR (MDRD) BUN/Creatinine Ratio Glucose Lactic Acid 29.4 H Calcium Total Bilirubin AST ALT Alkaline Phosphatase Total Protein Albumin Globulin Albumin/Globulin Ratio Procalcitonin Orders Category Date Time Status ADMIT PATIENT INPATIENT .TO SCU (MONITORED BED) ADMISSION 07/23/17 15:19 Active ABG DRAW REQUEST Stat CARDIO 07/23/17 13:02 Completed EKG-(IP & OP ONLY) Routine CARDIO 07/23/17 15:26 Completed NEBULIZER TREATMENT Routine CARDIO 07/23/17 15:23 Active NEBULIZER TREATMENT Stat CARDIO 07/23/17 13:03 Completed OXYGEN Routine CARDIO 07/23/17 15:19 Active BLOOD GLUCOSE MONITORING 0630,1100,1700,2100 CARE 07/23/17 15:26 Active GIVE HS SNACK 2100 CARE 07/23/17 15:30 Active INTAKE & OUTPUT Q8HR CARE 07/23/17 15:20 Active IV ACCESS ONCE CARE 07/23/17 13:01 Active TELEMETRY MONITORING TELE CARE 07/23/17 15:22 Active ADA 1800 LE. DIET DIETARY 07/23/17 Dinner Ordered HS SNACK DIETARY 07/23/17 Dinner Ordered ED APPLY O2 .ONCE EMERGENCY 07/23/17 13:01 Active ED CHAIRMAN PRESIDENT AND CHIEF EXECUTIVE OFFICER APPLIED .ONCE EMERGENCY 07/23/17 13:01 Active ED VITAL SIGNS Q1HR EMERGENCY 07/23/17 13:01 Active ABG Stat LAB 07/23/17 13:02 Completed BASIC METABOLIC PANEL DAILY@0600 LAB 07/24/17 06:00 Ordered BASIC METABOLIC PANEL DAILY@0600 LAB 07/25/17 06:00 Ordered BLOOD CULTURE (ED ONLY) Stat LAB 07/23/17 13:00 Received CBC W/ AUTO DIFF DAILY@0600 LAB 07/24/17 06:00 Ordered CBC W/ AUTO DIFF DAILY@0600 LAB 07/25/17 06:00 Ordered CBC W/ AUTO DIFF Stat LAB 07/23/17 13:00 Completed COMPREHENSIVE METABOLIC PANEL Stat LAB 07/23/17 13:00 Completed LACTIC ACID Stat LAB 07/23/17 13:00 Completed MANUAL DIFFERENTIAL Stat LAB 07/23/17 13:00 Completed PROCALCITONIN Stat LAB 07/23/17 13:00 Completed Acetaminophen [Tylenol] MEDS 07/23/17 15:19 Ordered 650 mg PO Q4H PRN Enoxaparin Sodium [Lovenox] MEDS 07/24/17 09:00 Ordered 40 mg SUBCUT DAILY Ipratropium/Albuterol Neb [Duoneb] MEDS 07/23/17 13:03 Discontinued 1 vial NEB ONCE STA Ipratropium/Albuterol Neb [Duoneb] MEDS 07/23/17 15:19 Ordered 1 vial NEB RTQ4H PRN Methylprednisolone Sod Succ/Pf [Solu-Medrol 125 mg] MEDS 07/23/17 13:03 Discontinued 125 mg IVP ONCE STA Ondansetron HCl/Pf [Zofran 4 mg/2 ml] MEDS 07/23/17 15:19 Ordered 4 mg IVP Q6H PRN Piperacillin Sodium/Tazobactam [Zosyn 3.375 gm] 3.375 MEDS 07/23/17 18:00 Ordered gm 0.9 % Sodium Chloride [Sodium Chloride] 100 ml IV Q6HR Piperacillin Sodium/Tazobactam [Zosyn 3.375 gm] 3.375 MEDS 07/23/17 13:26 Discontinued gm 0.9 % Sodium Chloride [Sodium Chloride] 50 ml IV ONCE Sodium Chloride 0.9% [Sodium Chloride] 1,000 ml MEDS 07/23/17 15:30 Ordered IV 75 mls/hr Sodium Chloride 0.9% [Sodium Chloride] 1,000 ml MEDS 07/23/17 13:02 Discontinued IV BOLUS Vancomycin HCl [Vancomycin] MEDS 07/23/17 15:01 Discontinued 1,000 mg .ROUTE .STK-MED ONE Vancomycin HCl [Vancomycin] 1,000 mg MEDS 07/23/17 13:26 Discontinued 0.9 % Sodium Chloride [Sodium Chloride] 200 ml IV ONCE Vancomycin HCl [Vancomycin] 1,000 mg MEDS 07/24/17 07:00 Ordered 0.9 % Sodium Chloride [Sodium Chloride] 200 ml IV Q12H RESUSCITATION STATUS Routine OTHERS 07/23/17 15:19 Ordered CHEST, 1V AP ONLY Stat RADS 07/23/17 12:59 Completed Medications Generic Name Dose Route Start Last Admin Trade Name Freq PRN Reason Stop Dose Admin Acetaminophen 650 mg 07/23/17 15:19 Tylenol PO Q4H PRN Fever > 102 Acetaminophen/Hydrocodone Bitart tab 07/23/17 16:04 Baker 7.5-325 PO TID PRN moderate pain-severe pain Albuterol/Ipratropium 1 vial 07/23/17 15:19 Duoneb NEB RTQ4H PRN Wheezing Aspirin 81 mg 07/23/17 21:00 Aspirin Ec PO BEDTIME [facility] Duloxetine HCl 30 mg 07/24/17 09:00 Cymbalta PO DAILY [facility] Enoxaparin Sodium 40 mg 07/24/17 09:00 Lovenox SUBCUT DAILY [facility] Piperacillin Sod/Tazobactam 100 mls @ 100 mls/hr 07/23/17 18:00 Sod 3.375 gm/ Sodium Chloride IV Q6HR GERRI Sodium Chloride 1,000 mls @ 75 mls/hr 07/23/17 15:30 Sodium Chloride IV .[id number] GERRI Vancomycin HCl 1,000 mg/ 200 mls @ 100 mls/hr 07/24/17 07:00 Sodium Chloride IV Q12H GERRI Losartan Potassium 100 mg 07/24/17 09:00 Cozaar PO DAILY [facility] Non-Formulary Medication 125 mcg 07/24/17 09:00 Levothyroxine Sodium [Synthroid] PO DAILY GERRI Non-Formulary Medication 2 puff 07/23/17 21:00 Mometasone/Formoterol [Dulera 200 Mcg/5 Mcg Inhaler] IH BID GERRI Non-Formulary Medication 5 mg 07/23/17 21:00 Simvastatin [Simvastatin] PO BEDTIME GERRI Non-Formulary Medication 4 mg 07/24/17 09:00 Tolterodine Tartrate PO DAILY [facility] Omeprazole 20 mg 07/24/17 06:30 Prilosec PO QDAC GERRI Ondansetron HCl 4 mg 07/23/17 15:19 Zofran 4 Mg/2 Ml IVP Q6H PRN Nausea / Vomiting Triamcinolone Acetonide 1 applic 07/23/17 16:04 Kenalog 0.1% TP BID PRN Rash Decubitus area. Zolpidem Tartrate 5 mg 07/23/17 16:04 Ambien PO PRN PRN Insomina Discontinued Medications Generic Name Dose Route Start Last Admin Trade Name Freq PRN Reason Stop Dose Admin Albuterol/Ipratropium 1 vial 07/23/17 13:03 07/23/17 13:41 Duoneb NEB 07/23/17 13:04 1 vial ONCE STA Administration Sodium Chloride 1,000 mls @ 1,000 mls/hr 07/23/17 13:02 07/23/17 13:59 Sodium Chloride IV 07/23/17 14:01 20 mls/hr BOLUS STA Administration Vancomycin HCl 1,000 mg/ 200 mls @ 100 mls/hr 07/23/17 13:26 07/23/17 15:08 Sodium Chloride IV 07/23/17 15:25 100 mls/hr ONCE STA Administration Piperacillin Sod/Tazobactam 50 mls @ 50 mls/hr 07/23/17 13:26 07/23/17 13:59 Sod 3.375 gm/ Sodium Chloride IV 07/23/17 14:25 50 mls/hr ONCE STA Administration Methylprednisolone Sodium Succinate 125 mg 07/23/17 13:03 07/23/17 13:58 Solu-Medrol 125 Mg IVP 07/23/17 13:04 125 mg ONCE STA Administration Vital Signs: Temp Pulse Resp BP Pulse Ox 07/23/17 12:57 96.3 F L 70 24 84/66 L 81 L Departure - Departure Time of Disposition: 15:05 Disposition: ADMITTED INPATIENT Discharge Problem: Hospital-acquired bacterial pneumonia Condition: Stable Pt referred to PMD for follow-up: Yes Allergies/Adverse Reactions: Allergies No Known Allergies Allergy (Verified 07/12/17 08:32) Home Medications: Ambulatory Orders Duloxetine HCl [Cymbalta] 30 mg PO DAILY 01/17/13 Levothyroxine Sodium [Synthroid] 125 mcg PO DAILY 01/17/13 Simvastatin 5 mg PO BEDTIME 01/17/13 Zolpidem Tartrate 5 mg PO PRN PRN 01/17/13 Bumetanide 2 mg PO DAILY 03/20/15 Glimepiride 2 mg PO DAILY 03/20/15 Albuterol Sulfate [Proair Hfa] 2 puff IH QID PRN 03/21/15 Mometasone/Formoterol [Dulera 200 Mcg/5 Mcg Inhaler] 2 puff IH BID 03/21/15 Hydrocodone Bit/Acetaminophen [Baker 7.5-325] 7.5 mg PO TID PRN 05/21/15 Tolterodine Tartrate [Detrol LA] 4 mg PO DAILY 05/21/15 Triamcinolone Acetonide [Kenalog 0.1%] 1 applic TP BID PRN 05/21/15 Amlodipine Besylate [Norvasc] 10 mg PO DAILY 05/28/17 Aspirin [Aspir-Low] 81 mg PO BEDTIME 05/28/17 Carvedilol [Coreg] 12.5 mg PO BIDWM 05/28/17 Fluocinonide [Lidex 0.05% Ointment] 1 applic TP PRN PRN 05/28/17 Losartan Potassium [Cozaar] 100 mg PO DAILY 05/28/17 Potassium Chloride [K-Dur] 20 meq PO DAILY 05/28/17 Testosterone [Testopel] 75 mg [place] PRN PRN 05/28/17 Omeprazole [Prilosec] 20 mg PO QDAC 05/29/17 Clonidine HCl [Catapres] 0.2 mg PO TID #90 tablet 06/02/17 Albuterol Sulfate 0.083% Neb [Albuterol 0.083% Neb] 1 vial NEB RTQ6H #120 vial.neb 07/17/17 Cephalexin [Keflex] 500 mg PO Q8HR #21 capsule 07/17/17 Furosemide [Lasix Tab] 40 mg PO MOWEFR PRN #15 tablet 07/17/17 Prednisone 10 mg PO TIDWM #16 tablet 07/17/17 Disposition Discussed With: Patient, Family
[2017-07-23] MEDS ORDERED: TYLENOL PO PRN (15:19)
[2017-07-23] MEDS ORDERED: ZOFRAN 4 MG/2 ML IVP PRN (15:19)
[2017-07-23] MEDS ORDERED: DUONEB NEB PRN (15:19)
[2017-07-23] MEDS ORDERED: NORCO 7.5-325 PO PRN (16:04)
[2017-07-23] MEDS ORDERED: KENALOG 0.1% TP PRN (16:04)
[2017-07-23] MEDS ORDERED: AMBIEN PO PRN (16:04)
[2017-07-23 16:59] VITALS: BMI 25.8
[2017-07-23] MEDS ORDERED: DUONEB NEB ONE (18:08)
[2017-07-23] MEDS: ZOSYN 3.375 GM 3.375 GM in SODIUM CHLORIDE 100 ML IV SCH ×2 (19:46→23:57)
[2017-07-23] MEDS ORDERED: ZOCOR ONE (20:23)
[2017-07-23] MEDS: ASPIRIN EC PO SCH (20:27)
[2017-07-23] MEDS: NYSTATIN ORAL SUSP PO SCH (20:27)
[2017-07-23] MEDS ORDERED: NYSTATIN ORAL SUSP ONE (20:27)
[2017-07-23] MEDS ORDERED: SOLU-MEDROL 125 MG ONE (20:29)
[2017-07-23] MEDS: SOLU-MEDROL 125 MG IVP SCH (20:29)
[2017-07-23] MEDS: HUMULIN R SUBCUT PRN (20:31)
[2017-07-23] MEDS ORDERED: SIMVASTATIN 5 MG PO SCH (21:00)
[2017-07-23] MEDS ORDERED: NON-FORMULARY MEDICATION (Mometasone/Formoterol [Dulera 200 Mcg/5 Mcg Inhaler] 2 PUFF) IH SCH (21:00)
[2017-07-23] MEDS: DUONEB NEB SCH (22:33)
[2017-07-23] MEDS: SODIUM CHLORIDE 1,000 ML IV SCH (23:58)
[2017-07-24] MEDS: DUONEB NEB SCH ×6 (01:26→22:45)
[2017-07-24] MEDS: SOLU-MEDROL 125 MG IVP SCH ×3 (05:37→21:03)
[2017-07-24] MEDS: ZOSYN 3.375 GM 3.375 GM in SODIUM CHLORIDE 100 ML IV SCH ×4 (05:37→23:53)
[2017-07-24] MEDS: NYSTATIN ORAL SUSP PO SCH ×4 (05:37→21:03)
[2017-07-24] MEDS: PRILOSEC PO SCH (05:37)
[2017-07-24] MEDS: HUMULIN R SUBCUT PRN ×3 (05:46→21:44)
[2017-07-24] MEDS ORDERED: VANCOMYCIN 1,000 MG in SODIUM CHLORIDE 200 ML IV SCH (07:00)
[2017-07-24] MEDS ORDERED: NON-FORMULARY MEDICATION (Levothyroxine Sodium [Synthroid] 125 MCG) PO SCH (09:00)
[2017-07-24] MEDS ORDERED: NON-FORMULARY MEDICATION (Bumetanide [Bumetanide] 2 MG) PO SCH (09:00)
[2017-07-24] MEDS ORDERED: NON-FORMULARY MEDICATION (Tolterodine Tartrate 4 MG) PO SCH (09:00)
[2017-07-24] MEDS: VANCOMYCIN 500 MG in SODIUM CHLORIDE 100 ML IV SCH ×2 (09:44→21:02)
[2017-07-24] MEDS: BUMEX PO SCH (09:45)
[2017-07-24] MEDS: CYMBALTA PO SCH (09:46)
[2017-07-24] MEDS: COZAAR PO SCH (09:46)
[2017-07-24] MEDS: COREG PO SCH ×2 (09:46→17:30)
[2017-07-24] MEDS: DETROL LA PO SCH (09:47)
[2017-07-24] MEDS: K-DUR PO SCH (09:47)
[2017-07-24] MEDS: LOVENOX SUBCUT SCH (09:47)
[2017-07-24] MEDS: SODIUM CHLORIDE 1,000 ML IV SCH (09:48)
[2017-07-24] MEDS: SYNTHROID PO SCH ×2 (09:48)
--- NOTE | 2017-07-24 11:02 | PCM.PROG ---
Attending Provider: ATTENDING PROVIDER: Dr. SPARKLE MART This patient is seen with Cary Xavier, Nurse Practitioner. DATE OF SERVICE: 07/24/17 SUBJECTIVE: This 82 year old WHITE/ M was hospitalized 07/23/17. The patient is sitting in bed, feels much better. Shortness of breath is much improved. REVIEW OF SYSTEMS: CONSTITUTIONAL: No night sweats. No fatigue, malaise, lethargy. No fever or chills. HEENT: Eyes: No visual changes. No eye pain. No eye discharge. ENT: No runny nose. No epistaxis. No sinus pain. No odynophagia. No congestion. RESPIRATORY: Cough and congestion. Shortness of breath. No hemoptysis. CARDIOVASCULAR: No angina symptoms. No CHF symptoms. No atypical chest pain for CAD. No palpitations. No orthopnea.. GASTROINTESTINAL: No abdominal pain. No nausea or vomiting. No diarrhea or constipation. No hematemesis. No hematochezia. GENITOURINARY: No urgency. No frequency. No dysuria. No hematuria. No obstructive symptoms. No discharge. No pain. No significant abnormal bleeding. MUSCULOSKELETAL: No musculoskeletal pain; no joint swelling. NEUROLOGICAL: Awake, alert, oriented to time, place and person. No headache. No neck pain. No syncope. No seizures. No dizziness. PSYCHIATRIC: Not anxious. No depression. No suicidal thoughts. No homicidal thoughts. SKIN: No rash. No lesions. No wounds. ENDOCRINE: No unexplained weight loss. No weight gain. HEMATOLOGIC/LYMPHATIC: No anemia. No purpura. No petechiae. No prolonged or excessive bleeding. No palpable lymph nodes. PHYSICAL EXAMINATION: GENERAL: The patient is awake, alert and oriented, sitting in bed in no distress. VITAL SIGNS: Temperature 98.5 F, Pulse 93, Respiratory Rate 17, BP 112/78, Pulse Ox 95% HEENT: Head normocephalic, atraumatic. Eyes: Extraocular muscles are intact. Pupils are equal, round and reactive to light and accommodation. Ears: No lesions. Nose appeared normal. Throat: No exudate or erythema. NECK: Supple. No JVD, no carotid bruit. No lymphadenopathy or thyromegaly. LUNGS: Diminished breath sounds bilaterally. Crackles on the right. Percussion note normal. Chest symmetrical. HEART: S1, S2, no S3. No murmurs. No cyanosis or clubbing. No ascites. Pulses: Dorsalis pedis and posterior tibial pulses +1 to +2 both sides. ABDOMEN: Soft. Non-tender. Bowel sounds active. No CVA tenderness. No mass felt. EXTREMITIES: Trace leg edema. Full range of motion of all extremities, equal. NEUROLOGIC: No focal deficit. Cranial nerves II through XII are grossly intact. No headache, no double vision or headache. SKIN: Not dry. Intact. Turgor-normal. LYMPHATIC: No palpable lymph nodes/no lymphedema. MUSCULOSKELETAL: Normal joints with no swelling. Muscle tone is normal. LAB REVIEW: 07/24/17 04:20 07/24/17 04:20 07/24/17 04:20: Sodium 138, Potassium 4.1, Chloride 102, Carbon Dioxide 25, Anion Gap 15.1, BUN 38 H, Creatinine 1.61 H, Estimated GFR (MDRD) 41.00, BUN/ Creatinine Ratio 23.60, Glucose 356 H D, Calcium 9.2 07/24/17 04:20: WBC 23.00 H D, RBC 5.59, Hgb 12.6 L, Hct 39.6 L, MCV 70.8 L, MCH 22.5 L, MCHC 31.8, RDW Coeff of Marek 22.6 H, Plt Count 158, Immature Gran % ( Auto) 0.5, Neut % (Auto) 96.3, Lymph % (Auto) 1.7 L, [place] % (Auto) 1.3, Eos % ( Auto) 0.0, Baso % (Auto) 0.2, Immature Gran # (Auto) 0.1, Neut # 22.2 H, Lymph # 0.4 L, [place] # 0.3 L, Eos # 0.0, Baso # 0.0, Plt Morphology Comment Normal, Anisocytosis 1+ ASSESSMENT: 1. Pneumonia right side 2. COPD 3. Pulmonary fibrosis 4. Hypertension 5. Chronic kidney disease 6. Leg edema PLAN: 1. Continue IV antibiotics decrease to 30 mL/hr 2. Restart Bumex 2 mg daily 3. Restart Coreg 12.5 mg b.i.d. 4. Hold Norvasc and Clonidine 5. Restart Potassium 20 mEQ daily Plan and coordination of the patient's care discussed in the presence of Fishing Hand and nurse. CONDITION: Stable SCRIBED BY: HARRY VERA, Credit Specialist scribed while in presence of service performed by Dr. Mart/Cary Xavier APRN on 07/24/17 ([id number])
[2017-07-24] MEDS: NON-FORMULARY MEDICATION (Mometasone/Formoterol [Dulera 200 Mcg/5 Mcg Inhaler] 2 PUFF) IH SCH ×2 (11:29→21:04)
[2017-07-24] MEDS: ZOCOR PO SCH (21:03)
[2017-07-24] MEDS: ASPIRIN EC PO SCH (21:04)
[2017-07-25] MEDS: SODIUM CHLORIDE 1,000 ML IV SCH ×2 (00:23→02:49)
[2017-07-25] MEDS: DUONEB NEB SCH ×6 (01:40→22:53)
[2017-07-25] MEDS: HUMULIN R SUBCUT PRN ×4 (05:35→20:26)
[2017-07-25] MEDS: ZOSYN 3.375 GM 3.375 GM in SODIUM CHLORIDE 100 ML IV SCH ×4 (05:35→23:02)
[2017-07-25] MEDS: BUMEX PO SCH (05:35)
[2017-07-25] MEDS: SOLU-MEDROL 125 MG IVP SCH ×3 (05:35→20:16)
[2017-07-25] MEDS: NYSTATIN ORAL SUSP PO SCH ×4 (05:35→20:17)
[2017-07-25] MEDS: PRILOSEC PO SCH (05:36)
[2017-07-25] MEDS: SYNTHROID PO SCH ×2 (05:36)
[2017-07-25] MEDS: K-DUR PO SCH (08:38)
[2017-07-25] MEDS: LOVENOX SUBCUT SCH (08:38)
[2017-07-25] MEDS: VANCOMYCIN 500 MG in SODIUM CHLORIDE 100 ML IV SCH ×2 (08:38→20:16)
[2017-07-25] MEDS: COREG PO SCH ×2 (08:38→17:07)
[2017-07-25] MEDS: CYMBALTA PO SCH (08:38)
[2017-07-25] MEDS: COZAAR PO SCH (08:38)
[2017-07-25] MEDS: DETROL LA PO SCH (08:38)
[2017-07-25] MEDS: NON-FORMULARY MEDICATION (Mometasone/Formoterol [Dulera 200 Mcg/5 Mcg Inhaler] 2 PUFF) IH SCH ×2 (08:40→20:27)
--- NOTE | 2017-07-25 10:11 | PCM.PROG ---
Attending Provider: ATTENDING PROVIDER: Dr. SPARKLE MART DATE OF SERVICE: 07/25/17 SUBJECTIVE: This 82 year old WHITE/ M was hospitalized 07/23/17. The patient was hospitalized with community acquired pneumonia one week ago and discharged last week, treated with antibiotics and steroids with COPD, bronchitis and pneumonia. He has been up and is looking good. REVIEW OF SYSTEMS: CONSTITUTIONAL: No night sweats. No fatigue, malaise, lethargy. No fever or chills. HEENT: Eyes: No visual changes. No eye pain. No eye discharge. ENT: No runny nose. No epistaxis. No sinus pain. No odynophagia. No congestion. RESPIRATORY: Shortness of breath on exertion. No cough, no congestion. No hemoptysis. CARDIOVASCULAR: No angina symptoms. No CHF symptoms. No atypical chest pain for CAD. No palpitations. No orthopnea.. GASTROINTESTINAL: No abdominal pain. No nausea or vomiting. No diarrhea or constipation. No hematemesis. No hematochezia. GENITOURINARY: No urgency. No frequency. No dysuria. No hematuria. No obstructive symptoms. No discharge. No pain. No significant abnormal bleeding. MUSCULOSKELETAL: No musculoskeletal pain; no joint swelling. NEUROLOGICAL: Awake, alert, oriented to time, place and person. No headache. No neck pain. No syncope. No seizures. No dizziness. PSYCHIATRIC: Not anxious. No depression. No suicidal thoughts. No homicidal thoughts. SKIN: No rash. No lesions. No wounds. ENDOCRINE: No unexplained weight loss. No weight gain. HEMATOLOGIC/LYMPHATIC: No anemia. No purpura. No petechiae. No prolonged or excessive bleeding. No palpable lymph nodes. PHYSICAL EXAMINATION: GENERAL: The patient is awake, alert and oriented, lying/sitting in bed in no distress. VITAL SIGNS: Temperature 97 F, Pulse 81, Respiratory Rate 20, BP 145/88, Pulse Ox 96% HEENT: Head normocephalic, atraumatic. Eyes: Extraocular muscles are intact. Pupils are equal, round and reactive to light and accommodation. Ears: No lesions. Nose appeared normal. Throat: No exudate or erythema. NECK: Supple. No JVD, no carotid bruit. No lymphadenopathy or thyromegaly. LUNGS: Decreased breath sounds with mild expiratory wheeze, trace edema. Percussion note normal. Chest symmetrical. HEART: S1, S2, no S3. No murmurs. No cyanosis or clubbing. No ascites. Pulses: Dorsalis pedis and posterior tibial pulses +1 to +2 both sides. ABDOMEN: Soft. Non-tender. Bowel sounds active. No CVA tenderness. No mass felt. EXTREMITIES: No edema. Full range of motion of all extremities, equal. NEUROLOGIC: No focal deficit. Cranial nerves II through XII are grossly intact. No headache, no double vision or headache. SKIN: Not dry. Intact. Turgor-normal. LYMPHATIC: No palpable lymph nodes/no lymphedema. MUSCULOSKELETAL: Normal joints with no swelling. Muscle tone is normal. LAB REVIEW: 07/25/17 04:05 07/25/17 04:05 07/25/17 04:05: Sodium 139, Potassium 3.8, Chloride 104, Carbon Dioxide 24, Anion Gap 14.8, BUN 38 H, Creatinine 1.64 H, Estimated GFR (MDRD) 40.00, BUN/ Creatinine Ratio 23.17, Glucose 281 H D, Calcium 9.1 07/25/17 04:05: WBC 21.98 H, RBC 5.35, Hgb 12.2 L, Hct 38.3 L, MCV 71.6 L, MCH 22.8 L, MCHC 31.9, RDW Coeff of Marek 22.8 H, Plt Count 159, Immature Gran % (Auto ) 0.7, Neut % (Auto) 94.8, Lymph % (Auto) 1.2 L, [place] % (Auto) 3.2, Eos % (Auto ) 0.0, Baso % (Auto) 0.1, Immature Gran # (Auto) 0.2, Neut # 20.8 H, Lymph # 0.3 L, [place] # 0.7, Eos # 0.0, Baso # 0.0 ASSESSMENT: 1. Acute respiratory failure resolved. 2. Chronic lung disease. 3. Chronic respiratory failure. 4. Pneumonia. 5. CHF controlled. 6. Diabetes mellitus PLAN: 1. Continue steroids 2. Antibiotics nebs treatment 3. Pulmonary rehab, advised for COPD Plan and coordination of the patient's care discussed in the presence of Belt Maker and nurse. CONDITION: Stable SCRIBED BY: HARRY VERA Network Operations Manager scribed while in presence of service performed by Dr. SPARKLE MART on 07/25/17 (1624)
--- NOTE | 2017-07-25 13:45 | HP ---
DATE OF SERVICE: 07/24/17 HISTORY OF PRESENT ILLNESS: This is an 82-year-old white female who presented to the emergency room with his complaining of worsening shortness of breath in the night. He had recently been hospitalized several weeks ago with pneumonia and was treated with Rocephin and Zithromax. The patient has a history of chronic lung disease and pulmonary fibrosis. PAST MEDICAL HISTORY: Stage 3 pressure ulcer of the sacral region, is seeing Wound Care, present on admission. Lumbar radiculopathy Chronic bronchitis Chronic kidney disease, Stage 3 COPD Hypertension LVH Hypothyroidism Diabetes mellitus type 2 Dyslipidemia Left sciatica Osteoarthritis Degenerative joint disease, severe Diabetic neuropathy Rosacea B12 deficiency History of right hilar mass PAST SURGICAL HISTORY: Status post bilateral total knee replacement The patient denies appendectomy, cholecystectomy or tonsillectomy SOCIAL HISTORY: The patient is retired, currently lives with his . He has quit smoking a number of years ago, greater than 20 years ago. He admits to occasional alcohol use socially. No ilicit drug use. He still drives his car. REVIEW OF SYSTEMS: CONSTITUTIONAL: Positive for weakness. No night sweats. No fever or chills. HEENT: Eyes: No visual changes. No blurry vision. No eye pain. No eye discharge. ENT: No runny nose. No epistaxis. No sinus pain. No sore throat. No odynophagia. No ear pain. No congestion. RESPIRATORY: Positive for shortness of breath and wheezing, very mild cough. No hemoptysis. CARDIOVASCULAR: No angina symptoms. No CHF symptoms. No atypical chest pain for CAD. No palpitations. No orthopnea. GASTROINTESTINAL: Positive for decreased appetite. No abdominal pain. No nausea or vomiting. No diarrhea or constipation. No hematemesis. No hematochezia. GENITOURINARY: No urgency. No frequency. No dysuria. No hematuria. No obstructive symptoms. No discharge. No pain. No significant abnormal bleeding. MUSCULOSKELETAL: Positive for weakness and joint swelling. No redness. No musculoskeletal pain. No joint swelling. No arthritis. NEUROLOGICAL: No confusion. Alert. No headache. No neck pain. No syncope. No seizures. No dizziness. PSYCHIATRIC: Not anxious. No depression. No suicidal thoughts. No homicidal thoughts. SKIN: No rash. Chronic decubitus Stage 3 on sacrum; otherwise unremarkable. ENDOCRINE: No unexplained weight loss. No weight gain. HEMATOLOGIC/LYMPHATIC: No anemia. No purpura. No petechiae. No prolonged or excessive bleeding. No palpable lymph nodes. PERSONAL/FAMILY/SOCIAL HISTORY: The patient is and lives at home with his . He is retired. He quit smoking several years ago. Denies any alcohol or ilicit drug use. MEDICATIONS: Cymbalta 30 mg p.o. daily Synthroid 125 mcg p.o. daily Simvastatin 5 mg p.o. bedtime Zolpidem Tartrate 5 mg p.o. p.r.n. Glimepiride 2 mg p.o. daily Bumetanide 2 mg p.o. daily ProAir HFA two puff IH q.i.d. p.r.n. Dulera 200 mcg/5 mcg inhaler two puff IH b.i.d. Kenalog one application TP b.i.d. p.r.n. Detrol LA 4 mg p.o. daily [place] 7.5 mg p.o. t.i.d. p.r.n. K-Dur 20 mEq p.o. daily Cozaar 100 mg p.o. daily Fluocinoide one application TP p.r.n. Coreg 12.5 mg p.o. b.i.d. with meal Testopel 75 mg Il p.r.n. Aspirin 81 mg p.o. bedtime Norvasc 10 mg p.o. daily Prilosec 20 mg p.o. q.d a.c. Catapres 0.25 mg p.o. t.i.d. Albuterol Sulfate one vial NEB RT q.6h Cephalexin (Keflex) 500mg p.o. q.8hr Prednisone 10 mg p.o. t.i.d. with meal Lasix 40 mg p.o. MoWeFr p.r.n. ALLERGIES: NKDA PHYSICAL EXAMINATION: VITAL SIGNS: Temperature 96.3, heart rate 70, respirations 24, BP 84/66, pulse ox 81%. GENERAL: The patient is ill-appearing, well-nourished in moderate distress. HEENT: Head normocephalic, atraumatic. Eyes: Extraocular muscles are intact. Pupils are equal, round and reactive to light and accommodation. Ears: TMs within normal limits. No lesions. Nose appeared normal. Throat: No exudate or erythema. NECK: Supple. No JVD, no carotid bruit. No lymphadenopathy or thyromegaly. LUNGS: Diminished breath sounds bilaterally with bilateral rhonchi and bilateral expiratory wheezing. Percussion note normal. Chest symmetrical. HEART: Regular rate and rhythm. S1, S2, no S3. No murmurs, clicks or rubs. No cyanosis or clubbing. No ascites. Pulses: Dorsalis pedis and posterior tibial pulses +1 to +2 both sides. ABDOMEN: Soft. Nontender. Bowel sounds active times four quadrants. No hepatosplenomegaly. : No CVA tenderness. EXTREMITIES: No edema. Full range of motion of all extremities, equal. NEUROLOGIC: No focal deficit. Cranial nerves II through XII are grossly intact. No headache, no double vision or headache. SKIN: [place], warm and dry. Stage 3 decubitus on sacrum which was present on admission. LYMPHATIC: No palpable lymph nodes/no lymphedema. MUSCULOSKELETAL: Positive for +1 bilateral lower extremity edema. No clubbing, no cyanosis. No joint swelling. No redness. Negative Winifred's sign bilaterally. NEUROLOGIC: Alert, oriented times three. Cranial nerves 2-12 are intact. LABS: White count 30.79, hemoglobin 13.1, hematocrit 41.4, platelets 193. Sodium 136, potassium 4.4, chloride 98, carbon dioxide 26, BUN 50, creatinine 1.97, glucose 282. GFR 33. Calcium 8.8, total bili 1.83, AST 11, ALT 12, alkaline phosphatase 78, total protein 6.0. ABGs on 2L 02 sat 82, pH 7.434, pc02 34.4, bicarb 23.1, total c02 24, base excess of negative 1. Lactic acid 29.4. Chest x-ray reveals new consolidation throughout the right lung probably represents pneumonia versus less likely asymptometic edema, small right pleural effusion, mild left basilar atelectasis and/or pneumonia. ASSESSMENT: 1. PNEUMONIA, RIGHT LUNG 2. ACUTE RESPIRATORY FAILURE 3. CHRONIC KIDNEY DISEASE 4. LEG EDEMA 5. COPD 6. SHORTNESS OF BREATH PLAN: 1. Admit to Special Care Unit 2. Routine telemetry orders 3. CBC, CMP daily 4. Xopenex neb treatments q.6hr 5. Continue home medications 6. Zosyn 3.375 gm IV q.6hr 7. Vancomycin IV q.12hr 8. Sliding scale for insulin 9. Solu-Medrol 125 mg IV q.8hr 10. Continue Bumex 11. Elevate the legs 12. Oxygen as needed 13. Will follow closely TIME SPENT: More than 70 minutes. MTDD
--- NOTE | 2017-07-25 15:20 | PN ---
DATE OF SERVICE: 07/24/17 SUBJECTIVE: The patient was hospitalized with acute respiratory failure. The patient's condition has improved. His bronchitis/pneumonitis doing better. He is on IV Solu-Cortef, Vancomycin, Zosyn and NEBS treatment. The patient is advised pulmonary rehab. His overall cardiovascular status stable with no evidence of CHF. The patient was seen and examined with Nurse Practitioner. The patient's condition has improved TIME SPENT: More than 30 minutes. Plan and coordination of the patient's care discussed in the presence of nurse. MATTHEW
[2017-07-25] MEDS: ASPIRIN EC PO SCH (20:17)
[2017-07-25] MEDS: ZOCOR PO SCH (20:18)
[2017-07-26] MEDS: DUONEB NEB SCH ×5 (01:55→23:30)
[2017-07-26] MEDS: SOLU-MEDROL 125 MG IVP SCH (04:08)
[2017-07-26] MEDS: BUMEX PO SCH (06:04)
[2017-07-26] MEDS: PRILOSEC PO SCH (06:04)
[2017-07-26] MEDS: SYNTHROID PO SCH ×2 (06:05)
[2017-07-26] MEDS: HUMULIN R SUBCUT PRN ×4 (06:05→21:13)
[2017-07-26] MEDS: NYSTATIN ORAL SUSP PO SCH ×4 (06:06→21:13)
[2017-07-26] MEDS: ZOSYN 3.375 GM 3.375 GM in SODIUM CHLORIDE 100 ML IV SCH (06:06)
[2017-07-26] MEDS: DETROL LA PO SCH (08:53)
[2017-07-26] MEDS: K-DUR PO SCH (08:53)
[2017-07-26] MEDS: COZAAR PO SCH (08:54)
[2017-07-26] MEDS: LOVENOX SUBCUT SCH (08:54)
[2017-07-26] MEDS: COREG PO SCH ×2 (08:54→17:19)
[2017-07-26] MEDS: CYMBALTA PO SCH (08:54)
[2017-07-26] MEDS: NON-FORMULARY MEDICATION (Mometasone/Formoterol [Dulera 200 Mcg/5 Mcg Inhaler] 2 PUFF) IH SCH ×2 (08:55→21:15)
[2017-07-26] MEDS ORDERED: AMBIEN PO PRN ×2 (09:00)
--- NOTE | 2017-07-26 09:34 | DI ---
Exam: Two x-rays of the chest. Comparison: 07/23/2017. Reason for exam: Pneumonia. FINDINGS: Patchy airspace opacities are seen in both lung bases. The cardiac silhouette is unchange d. The imaged osseous structures appear grossly unremarkable without acute fracture. Degenerative d isease is seen in the shoulders and lumbar spine. Impression: Patchy airspace opacities in both lung bases consistent with bilateral pneumonia.
[2017-07-26] MEDS: VANCOMYCIN 500 MG in SODIUM CHLORIDE 100 ML IV SCH ×3 (09:42→21:15)
[2017-07-26] MEDS: ZOSYN 3.375 GM 3.375 GM in SODIUM CHLORIDE 50 ML IV SCH ×3 (12:24→23:02)
[2017-07-26] MEDS: PREDNISONE PO SCH (12:24)
--- NOTE | 2017-07-26 13:26 | PN ---
DATE OF SERVICE: 07/23/17 - ADMIT NOTE SUBJECTIVE: The patient was seen in the emergency room. He came in because of heaviness, fatigue, confusion. The patient in the emergency room had evidence of bronchitis and hypotension along with possibility of pneumonia. The patient's oxygen saturation was 70 to 75% on room air. The patient was given 3L of oxygen and his saturation went up to 90 to 95. At the time when examined, he was oriented to time, place and person. He was not in any distress. The patient has been himself and had very active day yesterday. Recently hospitalized and being treated for CHF and acute bronchitis with pneumonia. The patient was given IV Solu-Cortef in the emergency room with nebs treatment. PHYSICAL EXAMINATION: HEENT: Head normocephalic, atraumatic. Eyes: Extraocular muscles are intact. Pupils are equal, round and reactive to light and accommodation. Ears: No lesions. Nose appeared normal. Throat: No exudate or erythema. NECK: Supple. No JVD, no carotid bruit. No lymphadenopathy or thyromegaly. LUNGS: Decreased breath sounds with mild wheeze but good air entry. Percussion note normal. Chest symmetrical. HEART: S1, S2, no S3. No murmurs. No cyanosis or clubbing. No ascites. Pulses: Dorsalis pedis and posterior tibial pulses +1 to +2 both sides. ABDOMEN: Soft. Nontender. Bowel sounds active. No CVA tenderness. No mass felt. EXTREMITIES: Trace edema. Full range of motion of all extremities, equal. NEUROLOGIC: No focal deficit. Cranial nerves II through XII are grossly intact. No headache, no double vision or headache. SKIN: Not dry. Intact. Turgor - normal. LYMPHATIC: No palpable lymph nodes/no lymphedema. MUSCULOSKELETAL: Normal joints with no swelling. Muscle tone is normal. ASSESSMENT: 1. ACUTE RESPIRATORY FAILURE WITH SEVERE CHRONIC LUNG DISEASE LIKELY FROM BRONCHITIS 2. CHF 3. HYPERTENSION 4. DIABETES MELLITUS 5. CHRONIC LUNG DISEASE 6. COR PULMONALE PLAN: 1. Reeducate the patient, advised to take his medications on a regular basis. 2. Advised to control his activity. 3. IV Lasix to be given 20 mg. 4. Elevate the legs. 5. The patient has already been given close to 700 cc of fluids. His blood pressure is 110 systolic. No evidence of fluid overload. 6. The patient is going to be on Zosyn and Vancomycin. CONDITION: Stable TIME SPENT: More than 30 minutes. Plan and coordination of the patient's care discussed in the presence of nurse. MATTHEW
--- NOTE | 2017-07-26 14:21 | PCM.PROG ---
Attending Provider: ATTENDING PROVIDER: Dr. SPARKLE MART DATE OF SERVICE: 07/26/17 SUBJECTIVE: This 82 year old WHITE/ M was hospitalized 07/23/17. The patient is hospitalized with pneumonia. Condition has improved. Pneumonia symptoms resolved, no cough, congestion, fever or chills. ABG p02 58, pc02 34, oxygen saturation 92% with pH of 7.49. White count 13,000 almost normal. REVIEW OF SYSTEMS: CONSTITUTIONAL: No night sweats. No fatigue, malaise, lethargy. No fever or chills. HEENT: Eyes: No visual changes. No eye pain. No eye discharge. ENT: No runny nose. No epistaxis. No sinus pain. No odynophagia. No congestion. RESPIRATORY: No cough, no congestion. No hemoptysis. No shortness of breath. CARDIOVASCULAR: No angina symptoms. No CHF symptoms. No atypical chest pain for CAD. No palpitations. No orthopnea.. GASTROINTESTINAL: No abdominal pain. No nausea or vomiting. No diarrhea or constipation. No hematemesis. No hematochezia. GENITOURINARY: No urgency. No frequency. No dysuria. No hematuria. No obstructive symptoms. No discharge. No pain. No significant abnormal bleeding. MUSCULOSKELETAL: No musculoskeletal pain; no joint swelling. NEUROLOGICAL: Awake, alert, oriented to time, place and person. No headache. No neck pain. No syncope. No seizures. No dizziness. PSYCHIATRIC: Not anxious. No depression. No suicidal thoughts. No homicidal thoughts. SKIN: No rash. No lesions. No wounds. ENDOCRINE: No unexplained weight loss. No weight gain. HEMATOLOGIC/LYMPHATIC: No anemia. No purpura. No petechiae. No prolonged or excessive bleeding. No palpable lymph nodes. PHYSICAL EXAMINATION: GENERAL: The patient is awake, alert and oriented, sitting in bed in no distress. VITAL SIGNS: Temperature 97.6 F, Pulse 72, Respiratory Rate 20, BP 150/79, Pulse Ox 98% HEENT: Head normocephalic, atraumatic. Eyes: Extraocular muscles are intact. Pupils are equal, round and reactive to light and accommodation. Ears: No lesions. Nose appeared normal. Throat: No exudate or erythema. NECK: Supple. No JVD, no carotid bruit. No lymphadenopathy or thyromegaly. LUNGS: Diminished breath sounds. Clear to auscultation. Percussion note normal. Chest symmetrical. HEART: S1, S2, no S3. No murmurs. No cyanosis or clubbing. No ascites. Pulses: Dorsalis pedis and posterior tibial pulses +1 to +2 both sides. ABDOMEN: Soft. Non-tender. Bowel sounds active. No CVA tenderness. No mass felt. EXTREMITIES: Trace edema. Full range of motion of all extremities, equal. NEUROLOGIC: No focal deficit. Cranial nerves II through XII are grossly intact. No headache, no double vision or headache. SKIN: Not dry. Intact. Turgor-normal. LYMPHATIC: No palpable lymph nodes/no lymphedema. MUSCULOSKELETAL: Normal joints with no swelling. Muscle tone is normal. LAB REVIEW: 07/26/17 05:10 07/26/17 05:10 07/26/17 05:10: Sodium 140, Potassium 3.5, Chloride 104, Carbon Dioxide 26, Anion Gap 13.5, BUN 37 H, Creatinine 1.46 H, Estimated GFR (MDRD) 46.00, BUN/ Creatinine Ratio 25.34, Glucose 235 H, Calcium 8.8, Total Bilirubin 1.5 H, AST 11 L, ALT 10 L, Alkaline Phosphatase 66, Total Protein 6.0, Albumin 2.5 L, Globulin 3.5, Albumin/Globulin Ratio 0.71 07/26/17 05:10: WBC 13.44 H D, RBC 5.24, Hgb 11.8 L, Hct 37.8 L, MCV 72.1 L, MCH 22.5 L, MCHC 31.2 L, RDW Coeff of Marek 22.9 H, Plt Count 171, Immature Gran % (Auto) 0.9, Neut % (Auto) 94.2, Lymph % (Auto) 2.3 L, [place] % (Auto) 2.5, Eos % (Auto) 0.0, Baso % (Auto) 0.1, Immature Gran # (Auto) 0.1, Neut # 12.7 H, Lymph # 0.3 L, [place] # 0.3 L, Eos # 0.0, Baso # 0.0 07/26/17 04:00: Puncture Site Rrad, O2 Saturation 92.0 L, ABG pH 7.497 H, ABG pCO2 34.7 L, ABG pO2 58.0 L*, ABG HCO3 26.8 H, ABG Total CO2 28, ABG Base Excess 4 H, Storm Test +, FiO2 % 21.0 07/25/17 04:15: B-Natriuretic Peptide 512 H ASSESSMENT: 1. Pneumonia resolved/pneumonitis resolved 2. Respiratory failure resolved PLAN: 1. D/C Solu-Medrol 2. Prednisone 30 mg p.o. daily 3. Continue Vancomycin 4. Advised pulmonary rehabilitation Plan and coordination of the patient's care discussed in the presence of Intercell Connector Placer and nurse. CONDITION: Stable SCRIBED BY: HARRY VERA Technical Internship scribed while in presence of service performed by Dr. SPARKLE MART on 07/26/17 ([id number])
[2017-07-26] MEDS ORDERED: LANOXIN IVP STA (18:43)
[2017-07-26] MEDS ORDERED: CARDIZEM ONE (18:47)
[2017-07-26] MEDS: ASPIRIN EC PO SCH (21:13)
[2017-07-26] MEDS: ZOCOR PO SCH (21:16)
[2017-07-27] MEDS: VANCOMYCIN 500 MG in SODIUM CHLORIDE 100 ML IV SCH ×3 (04:24→21:29)
[2017-07-27] MEDS: DUONEB NEB SCH ×4 (04:38→22:12)
[2017-07-27] MEDS: NYSTATIN ORAL SUSP PO SCH ×4 (06:00→21:26)
[2017-07-27] MEDS: ZOSYN 3.375 GM 3.375 GM in SODIUM CHLORIDE 50 ML IV SCH ×4 (06:00→23:44)
[2017-07-27] MEDS: PRILOSEC PO SCH (06:01)
[2017-07-27] MEDS: SYNTHROID PO SCH ×2 (06:01)
[2017-07-27] MEDS: BUMEX PO SCH (06:01)
[2017-07-27] MEDS: HUMULIN R SUBCUT PRN ×4 (06:02→21:25)
[2017-07-27] MEDS ORDERED: LOVENOX SUBCUT SCH (08:43)
--- NOTE | 2017-07-27 09:16 | PCM.PROG ---
Attending Provider: ATTENDING PROVIDER: Dr. SPARKLE MART This patient is seen with Cary Xavier, Nurse Practitioner. DATE OF SERVICE: 07/27/17 SUBJECTIVE: This 82 year old WHITE/ M was hospitalized 07/23/17. Alert sitting up in the chair. Shortness of breath has improved. The patient went in atrial fibrillation last night and is still in atrial fibrillation and is asymptomatic. REVIEW OF SYSTEMS: CONSTITUTIONAL: No night sweats. No fatigue, malaise, lethargy. No fever or chills. Weakness. HEENT: Eyes: No visual changes. No eye pain. No eye discharge. ENT: No runny nose. No epistaxis. No sinus pain. No odynophagia. No congestion. RESPIRATORY: Cough, no congestion. No hemoptysis. Shortness of breath. CARDIOVASCULAR: No angina symptoms. No CHF symptoms. No atypical chest pain for CAD. No palpitations. No orthopnea.. GASTROINTESTINAL: No abdominal pain. No nausea or vomiting. No diarrhea or constipation. No hematemesis. No hematochezia. GENITOURINARY: No urgency. No frequency. No dysuria. No hematuria. No obstructive symptoms. No discharge. No pain. No significant abnormal bleeding. MUSCULOSKELETAL: No musculoskeletal pain; no joint swelling. NEUROLOGICAL: Awake, alert, oriented to time, place and person. No headache. No neck pain. No syncope. No seizures. No dizziness. PSYCHIATRIC: Not anxious. No depression. No suicidal thoughts. No homicidal thoughts. SKIN: No rash. No lesions. No wounds. ENDOCRINE: No unexplained weight loss. No weight gain. HEMATOLOGIC/LYMPHATIC: No anemia. No purpura. No petechiae. No prolonged or excessive bleeding. No palpable lymph nodes. PHYSICAL EXAMINATION: GENERAL: The patient is awake, alert and oriented, sitting in the chair in no distress. VITAL SIGNS: Temperature 97.1 F, Pulse 83, Respiratory Rate 16, BP 144/76, Pulse Ox 95% HEENT: Head normocephalic, atraumatic. Eyes: Extraocular muscles are intact. Pupils are equal, round and reactive to light and accommodation. Ears: No lesions. Nose appeared normal. Throat: No exudate or erythema. NECK: Supple. No JVD, no carotid bruit. No lymphadenopathy or thyromegaly. LUNGS: Diminished breath sounds bilaterally. Clear to auscultation. Percussion note normal. Chest symmetrical. HEART: S1, S2, no S3. No murmurs. No cyanosis or clubbing. No ascites. Pulses: Dorsalis pedis and posterior tibial pulses +1 to +2 both sides. Irregular heart rate. ABDOMEN: Soft. Non-tender. Bowel sounds active. No CVA tenderness. No mass felt. EXTREMITIES: No edema. Full range of motion of all extremities, equal. NEUROLOGIC: No focal deficit. Cranial nerves II through XII are grossly intact. No headache, no double vision or headache. SKIN: Not dry. Intact. Turgor-normal. LYMPHATIC: No palpable lymph nodes/no lymphedema. MUSCULOSKELETAL: Normal joints with no swelling. Muscle tone is normal. LAB REVIEW: 07/27/17 04:30 07/27/17 04:30 07/27/17 04:30: Sodium 142, Potassium 3.5, Chloride 106, Carbon Dioxide 28, Anion Gap 11.5, BUN 37 H, Creatinine 1.33 H, Estimated GFR (MDRD) 51.00, BUN/ Creatinine Ratio 27.81, Glucose 296 H D, Calcium 8.8, Total Bilirubin 1.3 H, AST 10 L, ALT 11 L, Alkaline Phosphatase 62, Total Protein 6.1, Albumin 2.5 L, Globulin 3.6, Albumin/Globulin Ratio 0.69 07/27/17 04:30: WBC 12.77 H, RBC 5.37, Hgb 12.4 L, Hct 38.9 L, MCV 72.4 L, MCH 23.1 L, MCHC 31.9, RDW Coeff of Marek 23.1 H, Plt Count 176, Immature Gran % (Auto ) 1.0, Neut % (Auto) 89.7, Lymph % (Auto) 2.0 L, [place] % (Auto) 7.2, Eos % (Auto ) 0.0, Baso % (Auto) 0.1, Immature Gran # (Auto) 0.1, Neut # 11.5 H, Lymph # 0.3 L, [place] # 0.9, Eos # 0.0, Baso # 0.0, Anisocytosis 1+ 07/26/17 08:30: Vancomycin Trough 10.66 ASSESSMENT: Please see below. New onset atrial fibrillation Right sided pneumonia Chronic lung disease Chronic kidney disease Leg edema History CHF PLAN: Continue IV antibiotics. Plan and coordination of the patient's care discussed in the presence of Wool Hat Sanding Machine Operator and nurse. SCRIBED BY: BRYAN BRANHAM Patient Care Manager scribed while in presence of service performed by Dr. Mart/Cary Xavier APRN on 07/27/17 ([id number])
[2017-07-27] MEDS ORDERED: COREG PO ONE (09:39)
[2017-07-27] MEDS: K-DUR PO SCH (09:44)
[2017-07-27] MEDS: CYMBALTA PO SCH (09:44)
[2017-07-27] MEDS: COZAAR PO SCH (09:45)
[2017-07-27] MEDS: PREDNISONE PO SCH (09:45)
[2017-07-27] MEDS: DETROL LA PO SCH (09:45)
[2017-07-27] MEDS: NON-FORMULARY MEDICATION (Mometasone/Formoterol [Dulera 200 Mcg/5 Mcg Inhaler] 2 PUFF) IH SCH ×2 (09:46→21:26)
[2017-07-27] MEDS: LOVENOX SUBCUT SCH (09:55)
[2017-07-27] MEDS ORDERED: LANOXIN IVP STA ×2 (10:28→16:49)
[2017-07-27] MEDS ORDERED: CARDIZEM PO SCH (10:30)
[2017-07-27] MEDS: COREG PO SCH ×2 (10:53→17:00)
[2017-07-27] MEDS ORDERED: CARDIZEM PO ONE (11:00)
[2017-07-27] MEDS: KENALOG 0.1% TP SCH ×2 (12:34→21:26)
[2017-07-27] MEDS: CARDIZEM PO SCH ×2 (16:59→21:25)
[2017-07-27] MEDS: ASPIRIN EC PO SCH (21:25)
[2017-07-27] MEDS: ZOCOR PO SCH (21:27)
[2017-07-28] MEDS: DUONEB NEB SCH ×3 (04:53→14:15)
[2017-07-28] MEDS: HUMULIN R SUBCUT PRN ×2 (06:07→12:17)
[2017-07-28] MEDS: VANCOMYCIN 500 MG in SODIUM CHLORIDE 100 ML IV SCH ×2 (06:07→15:41)
[2017-07-28] MEDS: SYNTHROID PO SCH ×2 (06:17)
[2017-07-28] MEDS: NYSTATIN ORAL SUSP PO SCH ×2 (06:17→12:17)
[2017-07-28] MEDS: BUMEX PO SCH (06:17)
[2017-07-28] MEDS: PRILOSEC PO SCH (06:17)
[2017-07-28] MEDS: ZOSYN 3.375 GM 3.375 GM in SODIUM CHLORIDE 50 ML IV SCH ×2 (07:18→12:17)
[2017-07-28] MEDS: CYMBALTA PO SCH (08:55)
[2017-07-28] MEDS: COREG PO SCH (08:55)
[2017-07-28] MEDS: KENALOG 0.1% TP SCH (08:55)
[2017-07-28] MEDS: K-DUR PO SCH (08:55)
[2017-07-28] MEDS: COZAAR PO SCH (08:55)
[2017-07-28] MEDS: DETROL LA PO SCH (08:55)
[2017-07-28] MEDS: CARDIZEM PO SCH (08:55)
[2017-07-28] MEDS: NON-FORMULARY MEDICATION (Mometasone/Formoterol [Dulera 200 Mcg/5 Mcg Inhaler] 2 PUFF) IH SCH (08:56)
[2017-07-28] MEDS: LOVENOX SUBCUT SCH (08:56)
[2017-07-28] MEDS: PREDNISONE PO SCH (08:57)
--- NOTE | 2017-07-28 09:26 | PCM.PROG ---
Attending Provider: ATTENDING PROVIDER: Dr. SPARKLE MART This patient is seen with Cary Xavier, Nurse Practitioner. DATE OF SERVICE: 07/28/17 SUBJECTIVE: This 82 year old WHITE/ M was hospitalized 07/23/17. Alert and sitting up in the chair, states that he is feeling well. REVIEW OF SYSTEMS: CONSTITUTIONAL: No night sweats. No fatigue, malaise, lethargy. No fever or chills. HEENT: Eyes: No visual changes. No eye pain. No eye discharge. ENT: No runny nose. No epistaxis. No sinus pain. No odynophagia. No congestion. RESPIRATORY: No cough, no congestion. No hemoptysis. Normal shortness of breath. CARDIOVASCULAR: No angina symptoms. No CHF symptoms. No atypical chest pain for CAD. No palpitations. No orthopnea.. GASTROINTESTINAL: No abdominal pain. No nausea or vomiting. No diarrhea or constipation. No hematemesis. No hematochezia. GENITOURINARY: No urgency. No frequency. No dysuria. No hematuria. No obstructive symptoms. No discharge. No pain. No significant abnormal bleeding. MUSCULOSKELETAL: No musculoskeletal pain; no joint swelling. NEUROLOGICAL: Awake, alert, oriented to time, place and person. No headache. No neck pain. No syncope. No seizures. No dizziness. PSYCHIATRIC: Not anxious. No depression. No suicidal thoughts. No homicidal thoughts. SKIN: No rash. No lesions. No wounds. ENDOCRINE: No unexplained weight loss. No weight gain. HEMATOLOGIC/LYMPHATIC: No anemia. No purpura. No petechiae. No prolonged or excessive bleeding. No palpable lymph nodes. PHYSICAL EXAMINATION: GENERAL: The patient is awake, alert and oriented, sitting in chair in no distress. VITAL SIGNS: Temperature 97.4 F, Pulse 67, Respiratory Rate 15, BP 136/72, Pulse Ox 97% HEENT: Head normocephalic, atraumatic. Eyes: Extraocular muscles are intact. Pupils are equal, round and reactive to light and accommodation. Ears: No lesions. Nose appeared normal. Throat: No exudate or erythema. NECK: Supple. No JVD, no carotid bruit. No lymphadenopathy or thyromegaly. LUNGS: Diminished breath sounds bilaterally. Clear to auscultation. Percussion note normal. Chest symmetrical. HEART: S1, S2, no S3. Tachycardia heart rate. No murmurs. No cyanosis or clubbing. No ascites. Pulses: Dorsalis pedis and posterior tibial pulses +1 to +2 both sides. ABDOMEN: Soft. Non-tender. Bowel sounds active. No CVA tenderness. No mass felt. EXTREMITIES: Trace edema. Full range of motion of all extremities, equal. NEUROLOGIC: No focal deficit. Cranial nerves II through XII are grossly intact. No headache, no double vision or headache. SKIN: Not dry. Intact. Turgor-normal. LYMPHATIC: No palpable lymph nodes/no lymphedema. MUSCULOSKELETAL: Normal joints with no swelling. Muscle tone is normal. LAB REVIEW: 07/28/17 04:30 07/28/17 04:30 07/28/17 04:30: Vancomycin Trough 16.80 D 07/28/17 04:30: Sodium 142, Potassium 3.5, Chloride 104, Carbon Dioxide 29, Anion Gap 12.5, BUN 35 H, Creatinine 1.41 H, Estimated GFR (MDRD) 48.00, BUN/ Creatinine Ratio 24.82, Glucose 199 H D, Calcium 8.5, Total Bilirubin 0.9, AST 10 L, ALT 10 L, Alkaline Phosphatase 56, Total Protein 5.5 L, Albumin 2.4 L, Globulin 3.1, Albumin/Globulin Ratio 0.77 07/28/17 04:30: WBC 13.40 H, RBC 5.36, Hgb 12.2 L, Hct 39.5 L, MCV 73.7 L, MCH 22.8 L, MCHC 30.9 L, RDW Coeff of Marek 22.7 H, Plt Count 151, Immature Gran % ( Auto) 0.8, Neut % (Auto) 87.2, Lymph % (Auto) 3.4 L, [place] % (Auto) 8.4, Eos % ( Auto) 0.1, Baso % (Auto) 0.1, Immature Gran # (Auto) 0.1, Neut # 11.7 H, Lymph # 0.5 L, [place] # 1.1, Eos # 0.0, Baso # 0.0 ASSESSMENT: Please see below. Bilateral pneumonia Atrial Fibrillation Leg edema COPD Chronic kidney disease PLAN: Increase Cardizem 90mg three times a day Plan and coordination of the patient's care discussed in the presence of [employer] Welter and nurse. SCRIBED BY: BRYAN BRANHAM, Driver Education Road Instructor scribed while in presence of service performed by Dr. Mart/Cary Xavier APRN on 07/28/17 ([id number])
[2017-07-28] MEDS ORDERED: CARDIZEM PO ONE (09:30)
[2017-07-28 13:58] VITALS: BP 92/58; TEMP 98.7
[2017-07-28] MEDS ORDERED: CARDIZEM PO SCH (15:00)
--- NOTE | 2017-07-28 16:12 | CM.DICTOOL ---
ADMISSION: 07/23/17 15:24 DISCHARGE: July 28, 2017 DATE OF SERVICE: 07/28/17 FINAL DIAGNOSIS Pneumonia, right lung Acute Respiratory Failure New Onset Atrial Fibrillation Severe COPD (PFT 05/2017) Pulmonary Fibrosis Chronic Kidney Disease Hypertension Chronic Leg Edema Diabetes Mellitus, Type 2 Hypothyroid Dyslipidemia Neuropathy Osteoarthritis LVH (Echo 05/2017) Stage 2 pressure ulcer right buttock ([facility]) Bilateral TKR Left Foot Surgery Umbilical Hernia Repair Inquinal Hernia Repair LAST VITALS Temp Pulse Resp BP Pulse Ox 98.7 F 87 21 92/58 L 96 07/28/17 13:52 07/28/17 13:52 07/28/17 13:52 07/28/17 13:52 07/28/17 14:00 ACTIVE HOME MEDICATIONS Acetaminophen/Hydrocodone Bitart ([place] 7.5-325) 1 tab PO TID PRN PRN Reason: moderate pain-severe pain Albuterol 0.83% 1 vial NEB RT Q 6H [facility] Last Admin: 07/28/17 14:15 Dose: 1 vial Glimepiride 2 mg PO Daily Last Admin: Bumetanide (Bumex) 2 mg PO QDAC [facility] Last Admin: 07/28/17 06:17 Dose: 2 mg Carvedilol (Coreg) 25 mg PO BIDWM [facility] Last Admin: 07/28/17 08:55 Dose: 25 mg (dose increase) Duloxetine HCl (Cymbalta) 30 mg PO DAILY [facility] Last Admin: 07/28/17 08:55 Dose: 30 mg Albuterol Sulfate (ProAir Hfa) 2 puff IH QID PRN Last Admin: Levothyroxine Sodium (Synthroid) 125 mcg PO QDAC [facility] Last Admin: 07/28/17 06:17 Dose: 100 mcg Non-Formulary Medication (Mometasone/Formoterol [Dulera 200 Mcg/5 Mcg Inhaler]) 2 puff IH BID [facility] Last Admin: 07/28/17 08:56 Dose: Not Given Omeprazole (Prilosec) 20 mg PO QDAC [facility] Last Admin: 07/28/17 06:17 Dose: 20 mg Potassium Chloride (K-Dur) 20 meq PO DAILY [facility] Last Admin: 07/28/17 08:55 Dose: 20 meq Simvastatin (Zocor) 5 mg PO BEDTIME [facility] Last Admin: 12/21/17 21:27 Dose: 5 mg Tolterodine Tartrate (Detrol La) 4 mg PO DAILY [facility] Last Admin: 07/28/17 08:55 Dose: 4 mg Triamcinolone Acetonide (Kenalog 0.1%) 1 applic TP BID [facility] Last Admin: 07/28/17 08:55 Dose: 1 applic Zolpidem Tartrate (Ambien) 5 mg PO 3 TIMES PER WEEK PRN PRN Reason: Insomina Last Admin: 07/26/17 21:13 Dose: 5 mg ALLERGIES No Known Allergies Allergy (Verified 07/12/17 08:32) NEW PRESCRIPTIONS: Eliquis 5 mg BID Cardizem 90 mg BID Augmentin 875 mg BID for 10 days Prednisone 30 mg for 5 days, then 20 mg for 5 days, then 10 mg for 10 days SMOKING: Not Applicable DISEASE SPECIFIC EDUCATION: Pneumonia Atrial Fibrillation Medications Use of Eliquis Appointment Pulmonary Rehab LAB REVIEW: 07/28/17 04:30 07/28/17 04:30 07/28/17 04:30: Vancomycin Trough 16.80 D 07/28/17 04:30: Sodium 142, Potassium 3.5, Chloride 104, Carbon Dioxide 29, Anion Gap 12.5, BUN 35 H, Creatinine 1.41 H, Estimated GFR (MDRD) 48.00, BUN/ Creatinine Ratio 24.82, Glucose 199 H D, Calcium 8.5, Total Bilirubin 0.9, AST 10 L, ALT 10 L, Alkaline Phosphatase 56, Total Protein 5.5 L, Albumin 2.4 L, Globulin 3.1, Albumin/Globulin Ratio 0.77 07/28/17 04:30: WBC 13.40 H, RBC 5.36, Hgb 12.2 L, Hct 39.5 L, MCV 73.7 L, MCH 22.8 L, MCHC 30.9 L, RDW Coeff of Marek 22.7 H, Plt Count 151, Immature Gran % ( Auto) 0.8, Neut % (Auto) 87.2, Lymph % (Auto) 3.4 L, [place] % (Auto) 8.4, Eos % ( Auto) 0.1, Baso % (Auto) 0.1, Immature Gran # (Auto) 0.1, Neut # 11.7 H, Lymph # 0.5 L, [place] # 1.1, Eos # 0.0, Baso # 0.0 PLAN: Discharge home Diet: Consistent Carbohydrates, Activity: Gradually resume activity Elevate legs when sitting and when in bed Use Oxygen at 3 liters per cannula Continue to use nebulizer treatments every 6 hours Do not take any NSAIDS; Aleve, Ibuprofen, Motrin, Advil, Aspirin Medication changes: Decrease Cozaar (losartan) to 50 mg daily (take 1/2 100 mg tablet) Stop Amlodipine (Norvasc) Stop Clonidine (Catapres) An appointment is scheduled with Dr. Olivier on August 02 at 10:15. Please call to schedule a time to start Pulmonary Rehab Program Wound care as scheduled Mr. Oneill is alert and oriented x 3. He is short of air with exertion, but wears oxygen at 3 liters continuously. He denies cough. He is independent with Activities of Daily Living and uses a cane for ambulation at times. He has home oxygen, nebulizer and medication through [facility]. Meal intakes are 100%, good appetite is noted. No abdominal pain or nausea. A stage 2 decubitus is noted to the right buttock. Mr Oneill is seen by [facility] at [facility]. Luan Olivier MD Cary Xavier APRN
[2017-07-28] MEDS ORDERED: ELIQUIS PO SCH (21:00)
--- NOTE | 2017-08-01 09:07 | PN ---
DATE OF SERVICE: 07/28/17 SUBJECTIVE: The patient was hospitalized with acute respiratory failure, chronic bronchitis and acute bronchitis on top of it. There was no CHF. The patient's new problem is atrial fibrillation. Now the rate the controlled. The patient is practically asymptomatic, feeling great and wants to go home. REVIEW OF SYSTEMS: CONSTITUTIONAL: No night sweats. No fatigue, malaise, lethargy. No fever or chills. HEENT: Eyes: No visual changes. No eye pain. No eye discharge. ENT: No runny nose. No epistaxis. No sinus pain. No sore throat. No odynophagia. No congestion. RESPIRATORY: No cough, no congestion. No hemoptysis. No shortness of breath. CARDIOVASCULAR: No angina symptoms. No CHF symptoms. No atypical chest pain for CAD. No palpitations. No orthopnea. GASTROINTESTINAL: No abdominal pain. No nausea or vomiting. No diarrhea or constipation. No hematemesis. No hematochezia. Appetite has improved. GENITOURINARY: No urgency. No frequency. No dysuria. No hematuria. No obstructive symptoms. No discharge. No pain. No significant abnormal bleeding. MUSCULOSKELETAL: No musculoskeletal pain; no joint swelling. Up and about. NEUROLOGICAL: No headache. No neck pain. No syncope. No seizures. No dizziness. PSYCHIATRIC: Not anxious. No depression. No suicidal thoughts. No homicidal thoughts. SKIN: No rash. No lesions. No wounds. ENDOCRINE: No unexplained weight loss. No weight gain. HEMATOLOGIC/LYMPHATIC: No anemia. No purpura. No petechiae. No prolonged or excessive bleeding. No palpable lymph nodes. PHYSICAL EXAMINATION: GENERAL: The patient is oriented to time, place and person. HEENT: Head normocephalic, atraumatic. Eyes: Extraocular muscles are intact. Pupils are equal, round and reactive to light and accommodation. Ears: No lesions. Nose appeared normal. Throat: No exudate or erythema. NECK: Supple. No JVP, no carotid bruit. No lymphadenopathy or thyromegaly. LUNGS: Decreased breath sounds but good air entry. Clear to auscultation. Percussion note normal. Chest symmetrical. HEART: S1, S2, no S3. No murmurs. No cyanosis or clubbing. No ascites. Pulses: Dorsalis pedis and posterior tibial pulses +1 to +2 both sides. The patient has atrial fibrillation with rate of 80-90 per minute. ABDOMEN: Soft. Nontender. Bowel sounds active. No CVA tenderness. No mass felt. EXTREMITIES: No edema. Full range of motion of all extremities, equal. NEUROLOGIC: No focal deficit. Cranial nerves II through XII are grossly intact. No headache, no double vision or headache. SKIN: Not dry. Intact. Turgor - normal. LYMPHATIC: No palpable lymph nodes/no lymphedema. MUSCULOSKELETAL: Normal joints with no swelling. Muscle tone is normal. PLAN: 1. Atrial fibrillation complications discussed 2. The patient is going to be on Eliquis, he agreed to that. Side effects GI bleed, intracranial bleed discussed and advised not to take any nonsteroidal and anti-inflammatory 3. The patient's last echo done a few months ago showed LA size of 5.1 with normal LV ejection fraction and has LVH with normal LV size. 4. The patient will be discharged on Cardizem and increased dose of Coreg. CONDITION: Stable The patient was seen and examined with Nurse Practitioner. TIME SPENT: More than 30 minutes. Plan and coordination of the patient's care discussed in the presence of nurse. MATTHEW
--- NOTE | 2017-08-01 12:56 | PN ---
DATE OF SERVICE: 07/27/17 SUBJECTIVE: 82 year old white male hospitalized with community acquired pneumonia. The patient is being treated with Vancomycin and Zosyn. His condition has improved and his hydration status has improved. His new problem is atrial fibrillation. The patient is put on Cardizem 60 three times a day and Coreg has been raising to 25mg twice a day. Intermittent the patient was given Lanoxin. The patient's condition is stable. Explained about atrial fibrillation and complication. The patient does not have any CHF. COPD with pneumonia seems to be resolving. CONDITION: stable The patient was seen and examined with Nurse Practitioner. TIME SPENT: More than 30 minutes. Plan and coordination of the patient's care discussed in the presence of nurse. MATTHEW
--- NOTE | 2017-08-03 15:08 | PN ---
CODING FOR BILLIN07/23/17 LEVEL 5 07/24/17 INTERMEDIATE 07/25/17 INTERMEDIATE 07/26/17 INTERMEDIATE 07/27/17 INTERMEDIATE 07/28/17 DISCHARGE MTDD
--- NOTE | 2017-08-12 13:14 | DS ---
DATE OF SERVICE: 07/28/17 FINAL DIAGNOSIS: 1. PNEUMONIA, RIGHT LUNG 2. ACUTE RESPIRATORY FAILURE 3. NEW ONSET ATRIAL FIBRILLATION 4. SEVERE COPD (PFT 05/2017) 5. PULMONARY FIBROSIS 6. CHRONIC KIDNEY DISEASE 7. HYPERTENSION 8. CHRONIC LEG EDEMA 9. DIABETES MELLITUS TYPE 2 10. HYPOTHYROID 11. DYSLIPIDEMIA 12. NEUROPATHY 13. OSTEOARTHRITIS 14. LVH (ECHO 05/2017) 15. STAGE 2 PRESSURE ULCER, RIGHT BUTTOCK ([facility]) 16. BILATERAL TKR 17. LEFT FOOT SURGERY 18. UMBILICAL HERNIA REPAIR 19. INGUINAL HERNIA REPAIR DISCHARGE INSTRUCTIONS: 1. Followup appointment scheduled with Dr. Olivier on 08/02/17 at 10:15. Please call to schedule a time to start pulmonary rehab program. 2. Use oxygen 3L/cannula 3. Continue to use nebulizer treatments every 6 hours 4. Do not take NSAIDS; Aleve, Ibuprofen, Motrin, Advil or aspirin 5. Wound care as scheduled MEDICATIONS AT DISCHARGE: [place] 7.5-325 one tab p.o. t.i.d. p.r.n. Albuterol 0.83% one vial neb RT q.6h GERRI Glimepiride 2 mg p.o. daily Bumex 2 mg p.o. q.d a.c. GERRI Coreg 25 mg p.o. b.i.d. with meal GERRI Cymbalta 30 mg p.o. daily GERRI ProAir Hfa two puff IH q.i.d. p.r.n. Synthroid 125 mcg p.o. q.d a.c. GERRI Mometasone/Formoterol (Dulera 200 mcg/5 mcg inhaler) two puff IH b.i.d. GERRI Prilosec 20 mg p.o. q.d a.c. GERRI K-Dur 20 mEq p.o. daily GERRI Zocor 5 mg p.o. bedtime GERRI Detrol LA 4 mg p.o. daily GERRI Kenalog 0.1% one application TP b.i.d. GERRI Ambien 5 mg p.o. three times per week p.r.n. MEDICATION CHANGES: Decrease Cozaar (Losartan) to 50 mg daily (take 1/2 100 mg tablet) Stop Amlodipine (Norvasc) Stop Clonidine (Catapres) NEW PRESCRIPTIONS: Eliquis 5 mg b.i.d. Cardizem 90 mg b.i.d. Augmentin 875 mg b.i.d. for 10 days Prednisone 30 mg for 5 days, then 20 mg for 5 days, then 10 mg for 10 days DIET INSTRUCTIONS: Consistent carbohydrates ACTIVITY: Gradually resume activity Elevate legs when sitting and when in bed SMOKING: N/A DISEASE SPECIFIC EDUCATION: Pneumonia Atrial fibrillation Medications Use of Eliquis Appointment Pulmonary Rehab HOSPITAL COURSE: This is an 82-year-old white male who presented to the emergency room complaining of shortness of breath. He had been experiencing very mild shortness of breath over the past two days and woke in the middle of the night with worsening shortness of breath. He was recently hospitalized with pulmonary edema, I believe on the 12 of July. Chest x-ray was done which revealed pneumonia, mainly in the right lobe. He was subsequently admitted to the Special Care Unit due to his long history of COPD, pulmonary fibrosis, chronic kidney disease. He was placed on Zosyn 3.375 gm q.6hr along with Vancomycin 500 mg q.8hr. He was also placed on Solu-Cortef 125 mg IV q.6hr. Within about 48 hours his breathing significantly improved; however, over the course of this time he did go into atrial fibrillation which is new onset for him. He recently had an echo done in May at the last hospitalization which showed his LA cavity size to be 5.1. We were able to bring down his heart rate which have been into the 130s with the use of Digoxin and Cardizem. He was started on Cardizem 60 t.i.d. and was still running tachycardic and in persistent atrial fibrillation. We increased his Cardizem to 90 t.i.d. He was given IV fluids initially due to elevated kidney function which was thought to be due to mild dehydration. These were subsequently stopped after approximately 24 hours. His pressure ana appropriately. He did experience some low blood pressure today after increasing the Cardizem to 90 t.i.d. We will discontinue his Clonidine as well as his Norvasc for him to go home on due to the increase in Cardizem. We will give him Cardizem 90 mg b.i.d. at home. He will no longer take Norvasc or Clonidine and we also will decrease his Cozaar to 50 mg from 100 mg daily. His rate is controlled. He has been asymptomatic through this new onset of atrial fib. The risk of stroke and bleeding and risk associated with atrial fibrillation have been discussed in detail with this patient and he is thought to be a good candidate for Eliquis. Will start him on Eliquis 5 mg b.i.d. with the first dose beginning tonight as he has had Lovenox daily since he has been in the hospital. His ABGs on room air have significantly improved. He is not experiencing any increase in shortness of breath today. He is oxygen dependent due to his severe COPD but states he is in no distress today. He has been eating well, has been up and about. Again, his heart rate has been 70 to 90 after starting the increased Cardizem. His blood pressure has been stable. Temperature 97.4, respirations 15, pulse ox 97% on 3L. He is normally on 3L. Repeat chest x-ray showed improvement in the opacities. He had this on the . He is clinically improved with his pneumonia. He has a nebulizer machine at home. We will send him home on Augmentin 875 mg b.i.d. with meals for the next 10 days as this should be similar to the Zosyn he has been on along with the strong tapering dose of Prednisone 30 mg daily for 5 days, 20 mg daily for 5 days and 10 mg daily for 10 days. He is to use Albuterol neb treatments every 4 to 6 hours while at home until his cough improves. If he develops any sort of fever, he is instructed to return to the ER any worsening of shortness of breath. We have discussed in detail the need for him to stay indoors due to circulating illness and his condition. He needs to wear his oxygen at all times , keep his legs elevated. The risks and benefits of intracranial bleed, GI bleed have all been discussed regarding the use of Eliquis and the patient demonstrates understanding adequately. We will start him on this and continue at home due to the increased risk of blood clots with the atrial fib. We will see him early on Monday in the office next week. TIME SPENT: More than 60 minutes. МАРИНАD
== END 2017-07-28 17:05 | disposition home or self-care (01) | DRG 193 ==
LOC: ED 12:57 → SCU 15:24
PROVIDERS: ADMIT Internal Medicine; ATTEND Internal Medicine
DX: J18.1 Lobar pneumonia, unspecified organism (principal); J96.00 Acute respiratory failure, unspecified whether with hypoxia or hypercapnia; J44.0 Chronic obstructive pulmonary disease with (acute) lower respiratory infection; J20.9 Acute bronchitis, unspecified; I48.91 Unspecified atrial fibrillation; J44.9 Chronic obstructive pulmonary disease, unspecified; J84.10 Pulmonary fibrosis, unspecified; I12.9 Hypertensive chronic kidney disease with stage 1 through stage 4 chronic kidney disease, or unspecified chronic kidney disease; E11.22 Type 2 diabetes mellitus with diabetic chronic kidney disease; N18.3 Chronic kidney disease, stage 3 (moderate); I10 Essential (primary) hypertension; I51.7 Cardiomegaly; R00.0 Tachycardia, unspecified; I95.9 Hypotension, unspecified; I50.9 Heart failure, unspecified; I27.81 Cor pulmonale (chronic); R60.0 Localized edema; E03.9 Hypothyroidism, unspecified; E78.5 Hyperlipidemia, unspecified; G62.9 Polyneuropathy, unspecified; M19.90 Unspecified osteoarthritis, unspecified site; L89.312 Pressure ulcer of right buttock, stage 2; Y95 Nosocomial condition; Z86.718 Personal history of other venous thrombosis and embolism; Z79.899 Other long term (current) drug therapy; Z99.81 Dependence on supplemental oxygen; Z87.891 Personal history of nicotine dependence
CPT/HCPCS: 36415; 80048; 80053; 80202; 82803; 82962; 83605; 83880; 84145; 85007; 85008; 85025; 87040; 87081; 93005; 93010; 94640; 96365; 96367; 96375; 99284

== ENCOUNTER 2017-07-30 09:44 | Inpatient (IN) ==
[2017-07-30 10:01] VITALS: BMI 24.6
[2017-07-30] MEDS ORDERED: ROCEPHIN 1 GM in SODIUM CHLORIDE 50 ML IV STA (10:36)
[2017-07-30] MEDS ORDERED: SOLU-MEDROL 125 MG IVP STA (10:36)
[2017-07-30] MEDS ORDERED: ROCEPHIN ONE (11:07)
--- NOTE | 2017-07-30 11:11 | CT ---
EXAM: CT chest without intravenous contrast 07/30/2017. Sagittal and coronal reformatted images obt ained HISTORY: Recent pneumonia COMPARISON: 07/26/2017 FINDINGS: The heart size appears at the upper limits of normal. No pericardial effusion. Small to moderate right-sided pleural fluid collection. This appears to have a surrounding wall. Emp yema not excluded. Multifocal atelectasis and consolidation. Additional multifocal ground-glass infiltrate. These find ings likely represent a combination of atelectasis and pneumonia. No pneumothorax. Limited views of the upper abdomen show no acute process. No acute osseous abnormality. IMPRESSION: 1. Multifocal atelectasis and consolidation. Multifocal ground-glass infiltrate. These findings lik sergio represent a combination of atelectasis and pneumonia. 2. A small to moderate right-sided pleural fluid collection. This could represent pleural effusion. Empyema is not excluded.
--- NOTE | 2017-07-30 11:15 | CT ---
EXAM: CT scan of the abdomen and pelvis without contrast HISTORY: Anterior abdomen bruising TECHNIQUE: Imaging of the abdomen and pelvis was performed without contrast. 3 mm thin axial images and coronal and sagittal images were provided for interpretation. Comparison CT scan of the abdomen and pelvis dated 05/07/2014. FINDINGS: The liver, spleen, pancreas, adrenal glands and kidneys appear normal. The proximal urete rs are normal size. The small bowel loops are normal caliber. There is mild to moderate dilatation o f the colon by fecal material. There is dilatation of the ascending colon, transverse colon and desc ending colon and sigmoid colon. There is no free air. No acute abnormalities are seen within the ant erior abdominal wall. The helical images obtained through the pelvis demonstrate a normal appearance of the rectum, urinary bladder. There is no free fluid seen within the pelvis. No retroperitoneal abnormalities are seen. There is stable appearance of a small right pleural effusion. Ground-glass opacities are seen in the right lower lobe and right middle lobe of the lung. Additional consolidation is identified in the p osterior right lower lobe of the lung. No lytic or blastic lesions are seen within the osseous struct ures. IMPRESSION: There is no bowel obstruction or acute inflammatory change seen within the abdomen and p theresa. There is no ureteral obstruction. Probable constipation. Stable appearance of the small right pleural effusion. Superimposed atelectasis versus pneumonia seen in the right lung base.
[2017-07-30] MEDS ORDERED: VANCOMYCIN 1,000 MG in SODIUM CHLORIDE 200 ML IV STA (12:16)
--- NOTE | 2017-07-30 12:19 | ED.PDOC ---
General ED Provider: Dr. JESSICA FERGUSON Chief Complaint: Weakness Stated Complaint: generalized weakness, diarrhea , cough Time Seen by Physician: 10:00 Mode of Arrival: Wheelchair Information Source: Patient, Family Exam Limitations: No limitations Primary Care Provider: SPARKLE MART Nursing and Triage Documentation Reviewed and Agree: Yes Reviewed sepsis parameters & appropriate labs ordered?: Yes System Inflammatory Response Syndrome: Not Applicable Sepsis Protocol: For patient's 13 years and over: Temp is 96.8 and below OR 101 and greater Pulse >90 BPM Resp >20/minute Acutely Altered Mental Status Are patient's symptoms suggestive of a new infection, such as: -Pneumonia -Skin, Soft Tissue -Endocarditis -UTI -Bone, Joint Infection -Implantable Device -Acute Abdominal Infection -Wound Infection -Meningitis -Blood Stream Catheter Infection -Unknown Respiratory Complaint Exam - Respiratory Complaint/Exam Onset/Duration: 4 days of flu like symp diarrhea polyuria Symptoms Are: Still present Timing: Intermittent Initial Severity: Mild Current Severity: Mild Location: Throat, Chest Character: Reports: Non-productive cough Aggravating: Reports: None Alleviating: Reports: Spontaneous resolution Associated Signs and Symptoms: Reports: URI, Nasal congestion, Increased urination Related History: Reports: Similar episode History of Healthcare-Acquired Pneumonia: No Related Surgical History: Reports: None Cardiac Risk Factors: Reports: Smoking, Elevated lipids, Hypertension Pseudomonas Risk Factors: Reports: None Tuberculosis Risk Factors: Reports: None Status Asthmaticus Risk Factors: Reports: None Home Oxygen Use: No Recent Stress Test: No Recent Echo/LV Function: No Current Antibiotic Use: No Current Asthma Medication Use: No Respiratory Distress: Mild Inadequate Respiratory Effort: No Dysphagia Present: No Stridor Present: No JVD Present: No Accessory Muscle Use: No Diminished Breath Sounds: Yes Prolonged Respiration: Expiratory phase Sinus Tenderness: None Grunting Respirations: No Kussmaul Respirations: No Differential Diagnoses: CHF, Pulmonary Edema, Pneumonia, Pulmonary Embolism, Bronchitis, URI, Lower Resp. Infection Review of Systems - Review Of Systems Constitutional: Reports: Chills, Malaise, Weakness Eyes: Reports: No symptoms Ears, Nose, Mouth, Throat: Reports: No symptoms Respiratory: Reports: Cough Cardiac: Reports: No symptoms GI: Reports: Abdominal pain, Diarrhea : Reports: Frequency Musculoskeletal: Reports: No symptoms Skin: Reports: Other (brusing of abdominal wall see photos) Neurological: Reports: No symptoms Endocrine: Reports: No symptoms Hematologic/Lymphatic: Reports: No symptoms All Other Systems: Reviewed and Negative Past Medical History - Past Medical History Previously Healthy: No Endocrine: Reports: DM 2, Hypothyroid, Dyslipidemia Cardiovascular: Reports: CAD, Hypertension, CHF, DVT Respiratory: Reports: 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 Denies: Appendectomy, Cholecystectomy, Tonsillectomy, Adenoidectomy, CABG, Stent - Family History Family History: Reports: Unknown - Social History Smoking Status: Never smoker Hx Substance Use: No Alcohol Screening: Occasionally - Immunizations Influenza Vaccine within 12 Months: No Pneumococcal Vaccine up to Date: No Physical Exam - Physical Exam Appearance: Ill-appearing Ill-appearing: Moderate Pain Distress: Moderate Eyes: ELIZA, EOMI, Conjunctiva clear ENT: Ears normal, Nose normal, Oropharynx normal Respiratory: Rhonchi Cardiovascular: RRR, Pulses normal, No rub, No murmur GI/: Soft, Nontender, No masses, Bowel sounds normal, No Organomegaly Musculoskeletal: Normal strength, ROM intact, No edema, No calf tenderness Skin: Warm, Dry (brusing abdomen see photos present during prior admission due to insulin injection) Neurological: Sensation intact, Motor intact, Reflexes intact, Cranial nerves intact, Alert, Oriented Psychiatric: Affect appropriate, Mood appropriate Interpretation - Radiology Interpretation Radiology Interpretation By: Radiologist Radiology Results: No acute changes (postive infiltrate) Physician Notification - Case Discussed Physician Notified: dinh Time of Notification: 13:00 Admit To: Inpatient Critical Care Note - Critical Care Note Total Time (mins): 0 Course - Course Hematology/Chemistry: 07/30/17 10:50 07/30/17 10:50 Orders, Labs, Meds: Lab Review 07/30/17 07/30/17 07/30/17 10:32 10:50 10:50 WBC 13.90 H RBC 3.98 L Hgb 9.3 L Hct 29.6 L D MCV 74.4 L MCH 23.4 L MCHC 31.4 L RDW Coeff of Marek 23.0 H Plt Count 179 Immature Gran % (Auto) 1.9 Neut % (Auto) 83.7 Lymph % (Auto) 7.1 L [place] % (Auto) 6.3 Eos % (Auto) 0.9 Baso % (Auto) 0.1 Immature Gran # (Auto) 0.3 Neut # 11.6 H Lymph # 1.0 [place] # 0.9 Eos # 0.1 Baso # 0.0 D-Dimer (Manual) Puncture Site L rad O2 Saturation 96.0 ABG pH 7.466 H ABG pCO2 33.0 L ABG pO2 78.0 L ABG HCO3 24 ABG Total CO2 25 ABG Base Excess 0 Storm Test + O2 Delivery Device Nc Oxygen Liter Flow 3.00 FiO2 % 32.0 Sodium 136 Potassium 4.7 Chloride 102 Carbon Dioxide 26 Anion Gap 12.7 BUN 51 H Creatinine 1.46 H Estimated GFR (MDRD) 46.00 BUN/Creatinine Ratio 34.93 Glucose 474 H Lactic Acid Calcium 8.2 Total Bilirubin 0.9 AST 10 L ALT 13 Alkaline Phosphatase 56 Troponin I 0.0450 B-Natriuretic Peptide Total Protein 5.1 L Albumin 2.3 L Globulin 2.8 Albumin/Globulin Ratio 0.82 Procalcitonin Urine Color Urine Clarity Urine pH Ur Specific [place] Urine Protein Urine Glucose (UA) Urine Ketones Urine Blood Urine Nitrite Urine Bilirubin Urine Urobilinogen Ur Leukocyte Esterase Influenza A (Rapid) Influenza B (Rapid) 07/30/17 07/30/17 07/30/17 10:50 10:50 10:50 WBC RBC Hgb Hct MCV MCH MCHC RDW Coeff of Marek Plt Count Immature Gran % (Auto) Neut % (Auto) Lymph % (Auto) [place] % (Auto) Eos % (Auto) Baso % (Auto) Immature Gran # (Auto) Neut # Lymph # [place] # Eos # Baso # D-Dimer (Manual) Puncture Site O2 Saturation ABG pH ABG pCO2 ABG pO2 ABG HCO3 ABG Total CO2 ABG Base Excess Storm Test O2 Delivery Device Oxygen Liter Flow FiO2 % Sodium Potassium Chloride Carbon Dioxide Anion Gap BUN Creatinine Estimated GFR (MDRD) BUN/Creatinine Ratio Glucose Lactic Acid 22.7 H Calcium Total Bilirubin AST ALT Alkaline Phosphatase Troponin I B-Natriuretic Peptide 158 H Total Protein Albumin Globulin Albumin/Globulin Ratio Procalcitonin 0.11 Urine Color Urine Clarity Urine pH Ur Specific [place]ony Urine Protein Urine Glucose (UA) Urine Ketones Urine Blood Urine Nitrite Urine Bilirubin Urine Urobilinogen Ur Leukocyte Esterase Influenza A (Rapid) Influenza B (Rapid) 07/30/17 07/30/17 07/30/17 10:50 10:50 10:50 WBC RBC Hgb Hct MCV MCH MCHC RDW Coeff of Marek Plt Count Immature Gran % (Auto) Neut % (Auto) Lymph % (Auto) [place] % (Auto) Eos % (Auto) Baso % (Auto) Immature Gran # (Auto) Neut # Lymph # [place] # Eos # Baso # D-Dimer (Manual) 778.87 Puncture Site O2 Saturation ABG pH ABG pCO2 ABG pO2 ABG HCO3 ABG Total CO2 ABG Base Excess Storm Test O2 Delivery Device Oxygen Liter Flow FiO2 % Sodium Potassium Chloride Carbon Dioxide Anion Gap BUN Creatinine Estimated GFR (MDRD) BUN/Creatinine Ratio Glucose Lactic Acid Calcium Total Bilirubin AST ALT Alkaline Phosphatase Troponin I B-Natriuretic Peptide Total Protein Albumin Globulin Albumin/Globulin Ratio Procalcitonin Urine Color Yellow Urine Clarity Clear Urine pH 5.5 Ur Specific [place] <=1.005 Urine Protein Negative Urine Glucose (UA) 2+ Urine Ketones Trace Urine Blood Negative Urine Nitrite Negative Urine Bilirubin Negative Urine Urobilinogen 1.0 Ur Leukocyte Esterase Negative Influenza A (Rapid) Negative by naat Influenza B (Rapid) Negative by naat Orders Category Date Time Status ABG DRAW REQUEST Stat CARDIO 07/30/17 10:32 Ordered EKG-(ED ONLY) Stat CARDIO 07/30/17 10:32 Ordered ABG Stat LAB 07/30/17 10:32 Completed B-TYPE NATRIURETIC PEPTIDE Stat LAB 07/30/17 10:50 Completed BLOOD CULTURE Stat LAB 07/30/17 10:50 Received CBC W/ AUTO DIFF Stat LAB 07/30/17 10:50 Completed COMPREHENSIVE METABOLIC PANEL Stat LAB 07/30/17 10:50 Completed D-DIMER Stat LAB 07/30/17 10:50 Completed LACTIC ACID Stat LAB 07/30/17 10:50 Completed MOLECULAR GROUP A STREP Stat LAB 07/30/17 10:50 Results PROCALCITONIN Stat LAB 07/30/17 10:50 Completed RAPID FLU A/B Stat LAB 07/30/17 10:50 Completed STREP SCREEN Stat LAB 07/30/17 10:50 Results TROPONIN I Stat LAB 07/30/17 10:50 Completed URINALYSIS C & S IF INDICATED Stat LAB 07/30/17 10:50 Completed Ceftriaxone Sodium [Rocephin] MEDS 07/30/17 11:07 Discontinued 1 gm .ROUTE .STK-MED ONE Ceftriaxone Sodium [Rocephin] 1 gm MEDS 07/30/17 10:36 Discontinued 0.9 % Sodium Chloride [Sodium Chloride] 50 ml IV ONCE Methylprednisolone Sod Succ/Pf [Solu-Medrol 125 mg] MEDS 07/30/17 10:36 Discontinued 125 mg IVP ONCE STA Vancomycin HCl [Vancomycin] 1,000 mg MEDS 07/30/17 12:16 Ordered 0.9 % Sodium Chloride [Sodium Chloride] [address] ABDOMEN/PELVIS WO CONTRAST Stat RADS 07/30/17 10:[address] CHEST W/O CONTRAST Stat RADS 07/30/17 10:31 Completed Medications Generic Name Dose Route Start Last Admin Trade Name Freq PRN Reason Stop Dose Admin Vancomycin HCl 1,000 mg/ 200 mls @ 100 mls/hr 07/30/17 12:16 Sodium Chloride IV 07/30/17 14:15 ONCE STA Discontinued Medications Generic Name Dose Route Start Last Admin Trade Name Freq PRN Reason Stop Dose Admin Ceftriaxone Sodium 1 gm/ 50 mls @ 75 mls/hr 07/30/17 10:36 07/30/17 11:22 Sodium Chloride IV 07/30/17 11:15 75 mls/hr ONCE STA Administration Methylprednisolone Sodium Succinate 125 mg 07/30/17 10:36 07/30/17 11:22 Solu-Medrol 125 Mg IVP 07/30/17 10:37 125 mg ONCE STA Administration Vital Signs: Temp Pulse Resp BP Pulse Ox 07/30/17 09:49 97.0 F L 100 H 24 125/76 89 L Departure - Departure Time of Disposition: 13:00 Disposition: ADMITTED INPATIENT Discharge Problem: Renal insufficiency Uncontrolled diabetes mellitus Qualifiers: Diabetes mellitus type: type 2 Diabetes mellitus complication status: with unspecified complications Pneumonia Qualifiers: Pneumonia type: due to unspecified organism Instructions: Pneumonia (ED) Condition: Good Pt referred to PMD for follow-up: Yes Allergies/Adverse Reactions: Allergies No Known Allergies Allergy (Verified 07/30/17 10:38) Home Medications: Ambulatory Orders Duloxetine HCl [Cymbalta] 30 mg PO DAILY 01/17/13 Levothyroxine Sodium [Synthroid] 125 mcg PO DAILY 01/17/13 Simvastatin 5 mg PO BEDTIME 01/17/13 Zolpidem Tartrate 5 mg PO PRN PRN 01/17/13 Bumetanide 2 mg PO DAILY 03/20/15 Glimepiride 2 mg PO DAILY 03/20/15 Albuterol Sulfate [Proair Hfa] 2 puff IH QID PRN 03/21/15 Mometasone/Formoterol [Dulera 200 Mcg/5 Mcg Inhaler] 2 puff IH BID 03/21/15 Hydrocodone Bit/Acetaminophen [[place] 7.5-325] 7.5 mg PO TID PRN 05/21/15 Tolterodine Tartrate [Detrol LA] 4 mg PO DAILY 05/21/15 Triamcinolone Acetonide [Kenalog 0.1%] 1 applic TP BID PRN 05/21/15 Fluocinonide [Lidex 0.05% Ointment] 1 applic TP PRN PRN 05/28/17 Potassium Chloride [K-Dur] 20 meq PO DAILY 05/28/17 Testosterone [Testopel] 75 mg [place] PRN PRN 05/28/17 Omeprazole [Prilosec] 20 mg PO QDAC 05/29/17 Albuterol Sulfate 0.083% Neb [Albuterol 0.083% Neb] 1 vial NEB RTQ6H #120 vial.neb 07/17/17 Furosemide [Lasix Tab] 40 mg PO MOWEFR PRN #15 tablet 07/17/17 Amoxicillin/Potassium Clav [Augmentin 875-125 mg Tab] 1 tab PO Q12HR #20 tablet 07/28/17 Apixaban [Eliquis] 5 mg PO BID #60 tablet 07/28/17 Diltiazem HCl [Cardizem] 90 mg PO BID #60 tablet 07/28/17 Prednisone 10 mg PO DIRECTED #20 tablet 07/28/17
[2017-07-30] MEDS ORDERED: NORCO 7.5-325 PO PRN (12:32)
[2017-07-30] MEDS ORDERED: DUONEB NEB STA (12:32)
[2017-07-30] MEDS ORDERED: LASIX TAB PO PRN (12:32)
[2017-07-30] MEDS ORDERED: PREDNISONE PO SCH (13:00)
[2017-07-30] MEDS: SODIUM CHLORIDE 1,000 ML IV SCH (13:22)
[2017-07-30] MEDS: FLAGYL 500 MG/100 ML 500 MG in PREMIX 100 ML NS 1 BAG IV SCH ×2 (14:23→20:42)
[2017-07-30] MEDS: HUMULIN R SUBCUT PRN ×2 (17:07→20:47)
[2017-07-30] MEDS ORDERED: XOPENEX 1.25 MG NEB STA (19:24)
[2017-07-30] MEDS ORDERED: DECADRON 4 MG/ML SDV IM STA (19:27)
[2017-07-30] MEDS: ZOCOR PO SCH (20:43)
[2017-07-30] MEDS: CARDIZEM PO SCH (20:43)
[2017-07-30] MEDS: NON-FORMULARY MEDICATION (Mometasone/Formoterol [Dulera 200 Mcg/5 Mcg Inhaler] 2 PUFF) IH SCH (20:45)
[2017-07-30] MEDS ORDERED: SIMVASTATIN 5 MG PO SCH (21:00)
[2017-07-30] MEDS ORDERED: DILTIAZEM HCL 90 MG PO SCH (21:00)
[2017-07-30] MEDS ORDERED: ELIQUIS PO SCH (21:00)
[2017-07-30] MEDS: XOPENEX 1.25 MG NEB SCH (22:50)
[2017-07-31] MEDS: FLAGYL 500 MG/100 ML 500 MG in PREMIX 100 ML NS 1 BAG IV SCH ×3 (04:00→21:52)
[2017-07-31] MEDS: SODIUM CHLORIDE 1,000 ML IV SCH ×2 (04:01→23:32)
[2017-07-31] MEDS: XOPENEX 1.25 MG NEB SCH ×4 (04:16→23:13)
[2017-07-31] MEDS: SYNTHROID PO SCH ×2 (05:41)
[2017-07-31] MEDS: PRILOSEC PO SCH (05:41)
[2017-07-31] MEDS: HUMULIN R SUBCUT PRN ×4 (05:49→21:53)
[2017-07-31] MEDS ORDERED: PREDNISONE PO SCH (08:00)
[2017-07-31] MEDS ORDERED: AMARYL PO SCH (08:00)
[2017-07-31] MEDS: K-DUR PO SCH (08:45)
[2017-07-31] MEDS: CYMBALTA PO SCH (08:46)
[2017-07-31] MEDS: DECADRON 4 MG/ML SDV IM SCH (08:46)
[2017-07-31] MEDS: CARDIZEM PO SCH ×2 (08:46→21:52)
[2017-07-31] MEDS: BUMEX PO SCH (08:46)
[2017-07-31] MEDS ORDERED: NON-FORMULARY MEDICATION (Levothyroxine Sodium [Synthroid] 125 MCG) PO SCH (09:00)
[2017-07-31] MEDS ORDERED: NON-FORMULARY MEDICATION (Bumetanide [Bumetanide] 2 MG) PO SCH (09:00)
[2017-07-31] MEDS: NON-FORMULARY MEDICATION (Mometasone/Formoterol [Dulera 200 Mcg/5 Mcg Inhaler] 2 PUFF) IH SCH ×2 (10:52→21:54)
[2017-07-31] MEDS: ZOCOR PO SCH (21:52)
[2017-08-01] MEDS: XOPENEX 1.25 MG NEB SCH ×2 (05:18→11:00)
[2017-08-01] MEDS: HUMULIN R SUBCUT PRN ×2 (06:13→12:38)
[2017-08-01] MEDS: PRILOSEC PO SCH (06:13)
[2017-08-01] MEDS: SYNTHROID PO SCH ×2 (06:13)
[2017-08-01] MEDS: FLAGYL 500 MG/100 ML 500 MG in PREMIX 100 ML NS 1 BAG IV SCH ×2 (06:13→17:09)
[2017-08-01] MEDS: BUMEX PO SCH (09:19)
[2017-08-01] MEDS: CARDIZEM PO SCH (09:20)
[2017-08-01] MEDS: K-DUR PO SCH (09:20)
[2017-08-01] MEDS: DECADRON 4 MG/ML SDV IM SCH (09:20)
[2017-08-01] MEDS: CYMBALTA PO SCH (09:20)
[2017-08-01] MEDS: NON-FORMULARY MEDICATION (Mometasone/Formoterol [Dulera 200 Mcg/5 Mcg Inhaler] 2 PUFF) IH SCH (09:24)
--- NOTE | 2017-08-01 10:59 | PCM.PROG ---
Attending Provider: ATTENDING PROVIDER: Dr. SPARKLE MART DATE OF SERVICE: 08/01/17 SUBJECTIVE: This 82 year old WHITE/ M was hospitalized 07/30/17. The patient was hospitalized with weakness, fatigue, acute colitis type symptoms and had diarrhea. The patient has been given IV fluids. No evidence of upper respiratory infection or CHF. Sugar was out of control from steroids. Diarrhea was likely from Augmentin. Oxygen saturation more than 90% on room air. REVIEW OF SYSTEMS: CONSTITUTIONAL: The patient is feeling better. No night sweats. No fatigue, malaise, lethargy. No fever or chills. HEENT: Eyes: No visual changes. No eye pain. No eye discharge. ENT: No runny nose. No epistaxis. No sinus pain. No odynophagia. No congestion. RESPIRATORY: No cough, no congestion. No hemoptysis. No shortness of breath. CARDIOVASCULAR: No angina symptoms. No CHF symptoms. No atypical chest pain for CAD. No palpitations. No orthopnea.. GASTROINTESTINAL: Normal appetite. No abdominal pain. No nausea or vomiting. No diarrhea or constipation. No hematemesis. No hematochezia. GENITOURINARY: No urgency. No frequency. No dysuria. No hematuria. No obstructive symptoms. No discharge. No pain. No significant abnormal bleeding. MUSCULOSKELETAL: No musculoskeletal pain; no joint swelling. NEUROLOGICAL: Awake, alert, oriented to time, place and person. No headache. No neck pain. No syncope. No seizures. No dizziness. PSYCHIATRIC: Not anxious. No depression. No suicidal thoughts. No homicidal thoughts. SKIN: No rash. No lesions. No wounds. ENDOCRINE: No unexplained weight loss. No weight gain. HEMATOLOGIC/LYMPHATIC: No anemia. No purpura. No petechiae. No prolonged or excessive bleeding. No palpable lymph nodes. PHYSICAL EXAMINATION: GENERAL: The patient is awake, alert and oriented, sitting in bed in no distress. VITAL SIGNS: Temperature 97 F, Pulse 88, Respiratory Rate 16, BP 124/66, Pulse Ox 93% HEENT: Head normocephalic, atraumatic. Eyes: Extraocular muscles are intact. Pupils are equal, round and reactive to light and accommodation. Ears: No lesions. Nose appeared normal. Throat: No exudate or erythema. NECK: Supple. No JVD, no carotid bruit. No lymphadenopathy or thyromegaly. LUNGS: Decreased breath sounds, clear to auscultation. Percussion note normal. Chest symmetrical. HEART: S1, S2, no S3. No murmurs. No cyanosis or clubbing. No ascites. Pulses: Dorsalis pedis and posterior tibial pulses +1 to +2 both sides. ABDOMEN: Soft. Non-tender. Bowel sounds active. No CVA tenderness. No mass felt. EXTREMITIES: No edema. Full range of motion of all extremities, equal. NEUROLOGIC: No focal deficit. Cranial nerves II through XII are grossly intact. No headache, no double vision or headache. SKIN: Not dry. Intact. Turgor-normal. LYMPHATIC: No palpable lymph nodes/no lymphedema. MUSCULOSKELETAL: Normal joints with no swelling. Muscle tone is normal. LAB REVIEW: 08/01/17 05:05 08/01/17 05:05 08/01/17 05:05: Sodium 138, Potassium 4.3, Chloride 104, Carbon Dioxide 27, Anion Gap 11.3, BUN 48 H, Creatinine 1.47 H, Estimated GFR (MDRD) 46.00, BUN/ Creatinine Ratio 32.65, Glucose 266 H D, Calcium 8.5, Total Bilirubin 0.8, AST 11 L, ALT 17, Alkaline Phosphatase 54 L, Total Protein 5.1 L, Albumin 2.4 L, Globulin 2.7, Albumin/Globulin Ratio 0.89 08/01/17 05:05: WBC 16.78 H, RBC 3.78 L, Hgb 9.0 L, Hct 28.1 L, MCV 74.3 L, MCH 23.8 L, MCHC 32.0, RDW Coeff of Marek 24.2 H, Plt Count 198, Immature Gran % (Auto ) 1.2, Neut % (Auto) 91.0, Lymph % (Auto) 4.4 L, [place] % (Auto) 3.2, Eos % (Auto ) 0.1, Baso % (Auto) 0.1, Immature Gran # (Auto) 0.2, Neut # 15.3 H, Lymph # 0.7 , [place] # 0.5, Eos # 0.0, Baso # 0.0, Anisocytosis 2+ 07/31/17 11:50: Glucose 483 H D ASSESSMENT: 1. Acute colitis resolved 2. Dehydration resolved 3. Diabetes mellitus under control 4. No evidence of CHF 5. No pneumonia, respiratory status stable PLAN: 1. Asked the patient not to take Augmentin. 2. Decrease Prednisone to 20 mg one a day for 5 days then 10 mg one a day for 5 days. 3. Discharge the patient home today. Plan and coordination of the patient's care discussed in the presence of [place] and nurse. EDUCATION: Advised not to take Augmentin. Advised to stay in for one week. CONDITION: Stable SCRIBED BY: HARRY VERA Concrete Worker scribed while in presence of service performed by Dr. SPARKLE MART on 08/01/17 ([id number])
--- NOTE | 2017-08-01 12:47 | CM.DICTOOL ---
ADMISSION: 07/30/17 12:39 DISCHARGE: 08/01/17 DATE OF SERVICE: 08/01/17 FINAL DIAGNOSIS UNCONTROLLED DIABETES RENAL INSUFFICIENCY PNEUMONIA, RIGHT LUNG (HOSPITALIZED 07/23/17) SEVERE COPD (PFT 05/2017) ATRIAL FIB, NEW ONSET 07/23/17 HISTORY OF PULMONARY EDEMA PULMONARY FIBROSIS HYPERTENSION CHRONIC LEG EDEMA DIABETES MELLITUS, TYPE 2 HYPOTHYROID DYSLIPIDEMIA NEUROPATHY OSTEOARTHRITIS LVH (ECHO 05/2017) BILATERAL TKR LEFT FOOT SURGERY UMBILICAL HERNIA REPAIR INGUINAL HERNIA REPAIR STAGE 2 PRESSURE ULCER, RIGHT BUTTOCK (WOUND CARE AT [facility]) NEVER SMOKER LAST VITALS Temp Pulse Resp BP Pulse Ox 97.3 F L 89 20 116/63 96 08/01/17 10:00 08/01/17 10:00 08/01/17 10:00 08/01/17 10:00 08/01/17 10:00 ACTIVE HOME MEDICATIONS Acetaminophen/Hydrocodone Bitart ([place] 7.5-325) 1 tab PO TID PRN PRN Reason: Analgesia Albuterol Sulfate 0.085 Neb 1 vial NEb RT Q6H Albuterol Sulfate (Proair Hfa) 2 puff IH QID PRN Amoxicillin/Potassium Clav (Augmentin 875-125 mg) 1 tab PO Q12H (DISCONTINUE) Apixaban (Eliquis) 5 mg PO BID Bumetanide (Bumex) 2 mg PO DAILY COUNT INCLUDES THE [facility] Last Admin: 08/01/17 09:19 Dose: 2 mg Diltiazem HCl (Cardizem) 90 mg PO BID COUNT INCLUDES THE [facility] Last Admin: 08/01/17 09:20 Dose: 90 mg Duloxetine HCl (Cymbalta) 30 mg PO DAILY COUNT INCLUDES THE [facility] Last Admin: 08/01/17 09:20 Dose: 30 mg Fluocinonide (Lidex 0.05% Ointment) 1 damaris TP PRN PRN Furosemide (Lasix) 40 mg PO MOWEFR PRN (DISCONTINUE) Glimepiride 2 mg PO DAILY (DISCONTINUE) Levothyroxine Sodium (Synthroid) 125 mcg PO QDAC COUNT INCLUDES THE [facility] Last Admin: 08/01/17 06:13 Dose: 125 mcg Mometasone/Formoterol [Dulera 200 Mcg/5 Mcg Inhaler] 2 puff IH BID COUNT INCLUDES THE [facility] Last Admin: 08/01/17 09:24 Dose: Not Given Omeprazole (Prilosec) 20 mg PO QDAC COUNT INCLUDES THE [facility] Last Admin: 08/01/17 06:13 Dose: 20 mg Potassium Chloride (K-Dur) 20 meq PO DAILYWM COUNT INCLUDES THE [facility] Last Admin: 08/01/17 09:20 Dose: 20 meq Simvastatin (Zocor) 5 mg PO BEDTIME COUNT INCLUDES THE [facility] Last Admin: 07/31/17 21:52 Dose: 5 mg Tesosterone (Testopel) 75 mg [place] PRN PRN (DISCONTINUE) Tolterodine Tartrate (Detrol LA) 4 mg PO DAILY (DISCONTINUE) Triamicinolone Acetonide (Kenalog 0.1%) 1 damaris TP BID PRN Zolpidem Tartrate 5 mg PO PRN PRN (DISCONTINUE) ALLERGIES No Known Allergies Allergy (Verified 07/30/17 10:38) NEW PRESCRIPTIONS: TAKE 20 MG BY MOUTH DAILY WITH FOOD FOR 5 DAYS, THEN TAKE 10 MG BY MOUTH DAILY WITH FOOD FOR 5 DAYS, THEN STOP DO NOT TAKE THE FOLLOWING HOME MEDICATIONS AMOXICILLIN/POTASSIUM (AUGMENTIN) 875-125 MG FUROSEMIDE (LASIX) 40 MG PO MOWEFR PRN GLIMEPIRIDE 2 MG PO DAILY TESTOSTERONE 75 MG [place] PRN PRN TOLTERODINE TARTRATE (DETROL LA) 4 MG PO DAILY ZOLPIDEM TARTRATE 5 MG PO PRN PRN SMOKING: NEVER A SMOKER DISEASE SPECIFIC EDUCATION: DIABETES HYPERGLYCEMIA ACUTE RENAL INJURY HOME MEDICATIONS NEW ADMINISTRATION INSTRUCTIONS RISKS ASSOCIATED WITH SENIOR CARE USE OF STEROIDS FOLLOW UP LAB REVIEW: 08/01/17 05:05 08/01/17 05:05 08/01/17 05:05: Sodium 138, Potassium 4.3, Chloride 104, Carbon Dioxide 27, Anion Gap 11.3, BUN 48 H, Creatinine 1.47 H, Estimated GFR (MDRD) 46.00, BUN/ Creatinine Ratio 32.65, Glucose 266 H D, Calcium 8.5, Total Bilirubin 0.8, AST 11 L, ALT 17, Alkaline Phosphatase 54 L, Total Protein 5.1 L, Albumin 2.4 L, Globulin 2.7, Albumin/Globulin Ratio 0.89 08/01/17 05:05: WBC 16.78 H, RBC 3.78 L, Hgb 9.0 L, Hct 28.1 L, MCV 74.3 L, MCH 23.8 L, MCHC 32.0, RDW Coeff of Marek 24.2 H, Plt Count 198, Immature Gran % (Auto ) 1.2, Neut % (Auto) 91.0, Lymph % (Auto) 4.4 L, [place] % (Auto) 3.2, Eos % (Auto ) 0.1, Baso % (Auto) 0.1, Immature Gran # (Auto) 0.2, Neut # 15.3 H, Lymph # 0.7 , [place] # 0.5, Eos # 0.0, Baso # 0.0, Anisocytosis 2+ 07/31/17 11:50: Glucose 483 H D PLAN: DISCHARGE HOME TODAY RETURN TO SEE DR. MART IN ONE WEEK. PLEASE PHONE HIS OFFICE TO SCHEDULE YOUR FOLLOW UP APPOINTMENT ([phone]) RESUME YOUR HOME MEDICATIONS PER LIST PROVIDED BY THE NURSING STAFF PLEASE NOTE NEW ADMINISTRATION INSTRUCTIONS FOR THE PREDNISONE TAKE 20 MG BY MOUTH DAILY WITH FOOD FOR 5 DAYS, THEN TAKE 10 MG BY MOUTH DAILY WITH FOOD FOR 5 DAYS, THEN STOP ACTIVITY GET PLENTY OF REST AT HOME. GRADUALLY INCREASE YOUR ACTIVITY LEVEL ACCORDING TO YOUR TOLERATION DIET CONSISTENT CARBS SUMMARY THE PATIENT IS ALERT AND ORIENTED X3. HE CURRENTLY RESIDES AT HOME WITH HIS SPOUSE. HE HAS BEEN INDEPENDENT WITH ADL'S. HE HAS HOME OXYGEN FROM [employer]. HE DOES NOT REQUIRE HOME HEALTH OR HOMEMAKING SERVICES. HE DESIRES TO RETURN HOME AT DISCHARGE. THE PATIENT HAS A STAGE II DECUBITUS ULCER TO THE RIGHT BUTTOCK MEASURING 0.3 CM LONG BY 0.5 CM WIDE BY 0.1 CM DEEP. THE CENTER TISSUE IS PINK. THE WOUND IS DRY AND WITHOUT MAL-ODOR. THE WOUND WAS PRESENT ON ADMISSION. MR. UMANZOR IS RECEIVING WOUND CARE THROUGH THE WOUND CLINIC AT [facility]. HIS HYDRATION AND NUTRITIONAL STATUS IS VERY GOOD. MR. UMANZOR IS AWARE AND AGREEABLE FOR DISCHARGE HOME TODAY. CURRENT CODE STATUS FULL CODE SPARKLE MART M.D.
[2017-08-01 15:48] VITALS: BP 119/51; TEMP 97
[2017-08-03] MEDS ORDERED: PREDNISONE PO SCH (08:00)
--- NOTE | 2017-08-03 15:00 | HP ---
DATE OF SERVICE: 07/30/17 HISTORY OF PRESENT ILLNESS: 82-year-old white male came to the emergency room with fatigue, tired feeling and diarrhea. The patient was recently discharged a few days ago after being treated with acute respiratory failure with pneumonia. The patient's blood gases on room air were excellent. In the emergency room, his main problem is diarrhea off and on with incontinence along with weakness. His blood sugar has been running more than 400 likely from steroid therapy. PAST MEDICAL HISTORY: Multiple hospitalizations for acute respiratory failure, acute bronchitis, CHF, chronic lung disease, hypertension, diabetes mellitus, generalized osteoarthritis, hypogonadism, atrial fibrillation. REVIEW OF SYSTEMS: CONSTITUTIONAL: Weakness, fatigue. No night sweats. No fever or chills. HEENT: Eyes: No visual changes. No eye pain. No eye discharge. ENT: No runny nose. No epistaxis. No sinus pain. No sore throat. No odynophagia. No ear pain. No congestion. RESPIRATORY: Denies cough or congestion. He is breathing a lot better. No hemoptysis. No shortness of breath. No PND. CARDIOVASCULAR: No angina symptoms. No CHF symptoms. No atypical chest pain for CAD. No palpitations. No orthopnea. GASTROINTESTINAL: Appetite is okay. Positive for diarrhea with incontinence and weakness. No abdominal pain. No nausea or vomiting. No hematemesis. No hematochezia. GENITOURINARY: Incontinence. MUSCULOSKELETAL: No musculoskeletal pain. No joint swelling. No arthritis. NEUROLOGICAL: No headache. No neck pain. No syncope. No seizures. No dizziness. PSYCHIATRIC: Not anxious. No depression. No suicidal thoughts. No homicidal thoughts. SKIN: No rash. No lesions. No wounds. The patient has a bruise on the midline of the abdomen going to the right flank. ENDOCRINE: No unexplained weight loss. No weight gain. HEMATOLOGIC/LYMPHATIC: No anemia. No purpura. No petechiae. No prolonged or excessive bleeding. No palpable lymph nodes. PERSONAL/FAMILY/SOCIAL HISTORY: The patient is , lives with . Nonsmoker. No alcohol abuse. MEDICATIONS: Cymbalta 30 mg p.o. daily Synthroid 125 mg p.o. daily Simvastatin 5 mg p.o. at bedtime Zolpidem p.r.n. 3 days a week Bumex 2 mg p.o. daily Glimipiride 2 mg p.o. daily Albuterol HFA 2 puffs four times a day Dulera two puffs twice a day [place] 7.5/325 mg one tablet t.i.d. Detrol LA 4 mg p.o. daily K-Tab 20 mEq p.o. daily Testosterone 75 mg [place] p.r.n. Prilosec 20 mg p.o. daily Albuterol four times a day as needed Lasix 40 mg Monday, Monday, Monday (three days a week) Augmentin q.12hr Apixaban (Eliquis) 5 mg p.o. b.i.d. Cardizem 90 mg p.o. twice a day Prednisone 10 mg p.o. daily ALLERGIES: NKDA PHYSICAL EXAMINATION: HEENT: Head normocephalic, atraumatic. Eyes: Extraocular muscles are intact. Pupils are equal, round and reactive to light and accommodation. Ears: No lesions. Nose appeared normal. Throat: No exudate or erythema. NECK: Supple. No JVD, no carotid bruit. No lymphadenopathy or thyromegaly. LUNGS: Clear to auscultation. Percussion note normal. Chest symmetrical. HEART: S1, S2, no S3. No murmurs. No cyanosis or clubbing. No ascites. Pulses: Dorsalis pedis and posterior tibial pulses +1 to +2 both sides. ABDOMEN: Soft. Nontender. Bowel sounds active. No CVA tenderness. No mass felt. EXTREMITIES: No edema. Full range of motion of all extremities, equal. NEUROLOGIC: No focal deficit. Cranial nerves II through XII are grossly intact. No headache, no double vision or headache. SKIN: Warm and dry. Intact. Turgor - normal. LYMPHATIC: No palpable lymph nodes/no lymphedema. MUSCULOSKELETAL: Normal joints with no swelling. Muscle tone is normal. LABS: Hemoglobin 9.4 (on discharge two days ago was 12.2) , hematocrit 29, WBC 13,000 , normal differential. ABG p02 78, pc02 33, pH 7.46 with 96% saturation on 3L. Creatinine 1.4, BUN 51, potassium 4.7. Lactic acid slightly elevated. BNP 158, normal. Urine glucose 2+. CT scan of the abdomen did not show any intraabdominal or any other bleeding. ASSESSMENT: 1. WEAKNESS, DIARRHEA COULD BE FROM AUGMENTIN, COULD BE C. DIFF 2. DEHYDRATION LIKELY FROM DIARRHEA, CREATININE 1.4, BUN 51. 3. ANEMIA 4. CHRONIC RESPIRATORY FAILURE 5. HISTORY OF CHF 6. ATRIAL FIBRILLATION 7. DIABETES MELLITUS, UNCONTROLLED FROM STEROID THERAPY. PLAN: 1. Give IV fluids 75 cc/hr. 2. Watch for fluid overload. 3. Continue all the medications as before. 4. Cardizem 90 mg twice a day. 5. Telemetry. 6. Lasix will be given p.r.n. IV 20 mg for fluid overload, watch for fluid overload. 7. Continue Synthroid. 8. Steroids 10 mg p.o. daily. 9. Nebs treatment. 10. Xopenex q.6hr. 11. Bumex 2 mg p.o. daily. 12. Daily CBC, CMP. 13. No Augmentin because that may have caused the diarrhea. 14. Awaiting C. diff. He has to give stool specimen. The patient has diarrhea likely from Augmentin could be C. diff but in any case with the drop of hemoglobin at home will hold his Apixaban, Eliquis. Discussed with the patient and he is agreeable. He says he would not take a chance of bleeding. Will watch his hemoglobin and hematocrit closely every day. The patient seems to be in atrial fibrillation as usual the past several days. CONDITION: Stable. TIME SPENT: More than 70 minutes. MTDD
--- NOTE | 2017-08-03 15:17 | PN ---
DATE OF SERVICE: 07/31/17 SUBJECTIVE: 82-year-old white male hospitalized with weakness, uncontrolled diabetes, renal azotemia, weakness. The patient has been given slow IV fluids. His condition has improved. He is feeling a lot better. He has no diarrhea. Diarrhea likely was from Augmentin. He was unable to give any sample of the stool. The patient has no symptoms of CHF. He doesn't have cough or congestion. His oxygen saturation 98% on 2L. REVIEW OF SYSTEMS: CONSTITUTIONAL: No night sweats. No fatigue, malaise, lethargy. No fever or chills. HEENT: Eyes: No visual changes. No eye pain. No eye discharge. ENT: No runny nose. No epistaxis. No sinus pain. No sore throat. No odynophagia. No congestion. RESPIRATORY: No cough, no congestion. No hemoptysis. No shortness of breath. CARDIOVASCULAR: No angina symptoms. No CHF symptoms. No atypical chest pain for CAD. No palpitations. No orthopnea. GASTROINTESTINAL: No abdominal pain. No nausea or vomiting. No diarrhea or constipation. No hematemesis. No hematochezia. GENITOURINARY: No urgency. No frequency. No dysuria. No hematuria. No obstructive symptoms. No discharge. No pain. No significant abnormal bleeding. MUSCULOSKELETAL: No musculoskeletal pain; no joint swelling. NEUROLOGICAL: No headache. No neck pain. No syncope. No seizures. No dizziness. PSYCHIATRIC: Not anxious. No depression. No suicidal thoughts. No homicidal thoughts. SKIN: No rash. No lesions. No wounds. ENDOCRINE: No unexplained weight loss. No weight gain. HEMATOLOGIC/LYMPHATIC: No anemia. No purpura. No petechiae. No prolonged or excessive bleeding. No palpable lymph nodes. PHYSICAL EXAMINATION: VITAL SIGNS: Temperature 97.6, pulse 79, respiratory rate 18, BP 130/80, pulse ox 98%. HEENT: Head normocephalic, atraumatic. Eyes: Extraocular muscles are intact. Pupils are equal, round and reactive to light and accommodation. Ears: No lesions. Nose appeared normal. Throat: No exudate or erythema. NECK: Supple. No JVD, no carotid bruit. No lymphadenopathy or thyromegaly. LUNGS: Decreased breath sounds but clear to auscultation. Percussion note normal. Chest symmetrical. HEART: S1, S2, no S3. No murmurs. No cyanosis or clubbing. No ascites. Pulses: Dorsalis pedis and posterior tibial pulses +1 to +2 both sides. ABDOMEN: Soft. Nontender. Bowel sounds active. No CVA tenderness. No mass felt. EXTREMITIES: Trace edema. Full range of motion of all extremities, equal. NEUROLOGIC: No focal deficit. Cranial nerves II through XII are grossly intact. No headache, no double vision or headache. SKIN: Not dry. Intact. Turgor - normal. LYMPHATIC: No palpable lymph nodes/no lymphedema. MUSCULOSKELETAL: Normal joints with no swelling. Muscle tone is normal. LABS: Hemoglobin 9.3, hematocrit 29, WBC 13,000, normal differential. Creatinine 1.4, BUN 48, potassium 4.8. BNP was 158. ASSESSMENT: ACUTE COLITIS LIKELY FROM DRUG EFFECT. I DON'T THINK PATIENT HAD C. DIFF. THE PATIENT HAS BEEN ON A LOT OF ANTIBIOTICS IN THE PAST 4 TO 6 WEEKS WITH HIS BRONCHITIS AND PNEUMONITIS SO C. DIFF WAS SUSPECTED WHEN HE CAME IN WITH DIARRHEA AND ALSO HAD LEUKOCYTOSIS. I THINK VERY LIKELY THE PATIENT'S DIARRHEA WAS FROM AUGMENTIN. THE PATIENT DOES NOT HAVE ANY DIARRHEA WHILE IN HOSPITAL. HIS HYDRATION STATUS HAS IMPROVED. KIDNEY FUNCTIONS IMPROVED. HE IS FEELING BETTER. HE HAS NO EVIDENCE OF CONGESTIVE HEART FAILURE, BRONCHITIS OR PNEUMONIA. CONDITION: Stable TIME SPENT: More than 30 minutes. Plan and coordination of the patient's care discussed in the presence of nurse. MATTHEW
[2017-08-08] MEDS ORDERED: PREDNISONE PO SCH (08:00)
--- NOTE | 2017-08-17 14:54 | DS ---
DATE OF SERVICE: 08/01/17 FINAL DIAGNOSIS: 1. ACUTE COLITIS/DEHYDRATION 2. UNCONTROLLED DIABETES 3. RENAL INSUFFICIENCY 4. PNEUMONIA RIGHT LUNG (HOSPITALIZED 07/23/17) 5. SEVERE COPD (PFT 05/2017) 6. ATRIAL FIBRILLATION, NEW ONSET (07/23/17) 7. HISTORY OF PULMONARY EDEMA 8. PULMONARY FIBROSIS 9. HYPERTENSION 10. CHRONIC LEG EDEMA 11. DIABETES MELLITUS, TYPE 2 12. HYPOTHYROID 13. DYSLIPIDEMIA 14. NEUROPATHY 15. OSTEOARTHRITIS 16. LVH (ECHO 05/2017) 17. BILATERAL TKR 18. LEFT FOOT SURGERY 19. UMBILICAL HERNIA REPAIR 20. INGUINAL HERNIA REPAIR 21. STAGE 2 PRESSURE ULCER, RIGHT BUTTOCK ([facility] AT [facility]) 22. NEVER SMOKER DISCHARGE INSTRUCTIONS: Followup appointment: Dr. Olivier in one week, please phone his office to schedule your followup appointment. MEDICATIONS AT DISCHARGE: [place] 7.5-325 one tab p.o. t.i.d. p.r.n. Albuterol 0.085 neb one vial neb RT q.6h Albuterol (ProAir Hfa) two puff IH q.i.d. p.r.n. Augmentin 875-125 mg one tab p.o. q.12h (discontinue) Eliquis 5 mg p.o. b.i.d. Bumex 2 mg p.o. daily GERRI Cardizem 90 mg p.o. b.i.d. GERRI Cymbalta 30 mg p.o. daily GERRI Fluocinonide one application TP p.r.n. Furosemide (Lasix) 40 mg p.o. MoWeFr p.r.n. (discontinue) Glimepiride 2 mg p.o. daily (discontinue) Synthroid 125 mcg p.o. Dulera 200 mcg/5 mcg inhaler two puff IH b.i.d. GERRI Prilosec 20 mg p.o. q.d a.c. GERRI K-Dur 20 mEq p.o. daily with meal GERRI Zocor 5 mg p.o. bedtime GERRI Testopel 75 mg [place] p.r.n. (discontinue) Detrol LA 4 mg p.o. daily (discontinue) Triamcinolone one damaris TP b.i.d. p.r.n. Zolpidem 5 mg p.o. p.r.n. (discontinue) NEW PRESCRIPTIONS: Prednisone 20 mg p.o. daily with food for 5 days, then 10 mg p.o. daily with food for 5 days then stop DO NOT TAKE THE FOLLOWING HOME MEDICATIONS: Amoxicillin/Potassium (Augmentin) 875-125 mg Furosemide (Lasix) 40 mg p.o. Mo We Fr p.r.n. Glimepiride 2 mg p.o. daily Testosterone 75 mg [place] p.r.n. Tolterodine Tartrate (Detrol LA) 4 mg p.o. daily Zolpidem Tartrate 5 mg p.o. p.r.n. DIET INSTRUCTIONS: Consistent Carbs ACTIVITY: Get plenty of rest at home. Gradually increase your activity level according to your toleration. SMOKING: N/A DISEASE SPECIFIC EDUCATION: Diabetes Hyperglycemia Acute Renal Injury Home Medications New administration instructions Risks associated with long-term use of steroids Followup HOSPITAL COURSE: 82-year-old white male hospitalized with acute colitis likely from Augmentin. C. diff was practically ruled out as the patient was unable to give specimen. He did not have any diarrhea. His appetite was normal. His cardiovascular and respiratory status was stable this time. He was recently treated for acute bronchitis/pneumonitis twice in the hospital. The patient at time of discharge was up and about, feeling better. Appetite was normal. On admission he was somewhat dehydrated. IV fluids slowly were given for two days with improved hydration status. His kidney functions improved. His blood sugar has been out of control to some extent because of steroids. The patient has been taken off Amaryl. The patient was also taken off from Eliquis because of large ecchymosis underneath her skin that was noted with drop in hemoglobin about 3 gm percentage. He has declined to take them for now, understands the complications of atrial fib and also complications of Jalen blood thinners like GI bleed, intracranial bleed, also Coumadin has same effect. The patient's hemoglobin/ hematocrit was stable. At the the time of discharge, he will be further evaluated as an outpatient for Jalen blood thinners or Coumadin therapy. Also about his blood sugar, treatment will be started as an outpatient. The patient needs to avoid Sulfonylurea, also Metformin. His kidney functions are borderline. TIME SPENT: More than 60 minutes. [employer]
--- NOTE | 2017-08-25 09:34 | PN ---
CODING FOR BILLING 07/30/17 LEVEL 5 07/31/17 INTERMEDIATE 08/01/17 DISCHARGE MTDD
== END 2017-08-01 17:10 | disposition home or self-care (01) | DRG 391 ==
LOC: ED 09:44 → MEDSURG B 12:39
PROVIDERS: ADMIT Internal Medicine; ATTEND Internal Medicine
DX: K52.9 Noninfective gastroenteritis and colitis, unspecified (principal); J18.9 Pneumonia, unspecified organism; T36.0X5A Adverse effect of penicillins, initial encounter; E11.65 Type 2 diabetes mellitus with hyperglycemia; I48.91 Unspecified atrial fibrillation; J44.9 Chronic obstructive pulmonary disease, unspecified; J84.10 Pulmonary fibrosis, unspecified; T38.0X5A Adverse effect of glucocorticoids and synthetic analogues, initial encounter; N28.9 Disorder of kidney and ureter, unspecified; I50.9 Heart failure, unspecified; L89.312 Pressure ulcer of right buttock, stage 2; S30.1XXA Contusion of abdominal wall, initial encounter; I10 Essential (primary) hypertension; R60.0 Localized edema; I51.7 Cardiomegaly; R10.9 Unspecified abdominal pain; R53.1 Weakness; R35.8 Other polyuria; E03.9 Hypothyroidism, unspecified; G62.9 Polyneuropathy, unspecified; M19.90 Unspecified osteoarthritis, unspecified site; Z79.01 Long term (current) use of anticoagulants; Z79.4 Long term (current) use of insulin
CPT/HCPCS: 36415; 80053; 81001; 82550; 82803; 82947; 82962; 83605; 83880; 84145; 84484; 85008; 85025; 85379; 87040; 87081; 87502; 87651; 87880; 93005; 93010; 94640; 96365; 96375; 99284

== ENCOUNTER 2017-08-21 12:20 | Inpatient (IN) | payer OTHER ==
[2017-08-21] MEDS ORDERED: DEXTROSE 50%-WATER ABBOJECT ONE ×2 (13:18→17:37)
[2017-08-21] MEDS ORDERED: ROCEPHIN 1 GM in SODIUM CHLORIDE 50 ML IV STA (14:38)
[2017-08-21] MEDS ORDERED: ROCEPHIN ONE (15:03)
--- NOTE | 2017-08-21 15:16 | DI ---
EXAM: CHEST FRONTAL VIEW HISTORY: Shortness of breath. COMPARISON: 07/26/2017 FINDINGS: Prominent heart size is stable. Moderate atherosclerotic disease. Bibasilar patchy densi ty more noticeable since previous exam. No definite pleural fluid. Shoulder arthropathy redemonstra stan. IMPRESSION: Bibasilar density could represent mild pneumonia or changes from early pulmonary vascular congestion. Correlate clinically. No visible pleural fluid.
--- NOTE | 2017-08-21 15:17 | ED.PDOC ---
General ED Provider: Dr. JESSICA FERGUSON Chief Complaint: Weakness Stated Complaint: weakness low blood sugar Time Seen by Physician: 12:30 (blood sugar dropped around 6pm spoke ro nurse at 11;30 pt still weak) Mode of Arrival: Ambulance Information Source: Patient, Family Exam Limitations: No limitations [facility] Primary Care Provider: SPARKLE MART Nursing and Triage Documentation Reviewed and Agree: Yes Reviewed sepsis parameters & appropriate labs ordered?: Yes System Inflammatory Response Syndrome: Not Applicable Sepsis Protocol: For patient's 13 years and over: Temp is 96.8 and below OR 101 and greater Pulse >90 BPM Resp >20/minute Acutely Altered Mental Status Are patient's symptoms suggestive of a new infection, such as: -Pneumonia -Skin, Soft Tissue -Endocarditis -UTI -Bone, Joint Infection -Implantable Device -Acute Abdominal Infection -Wound Infection -Meningitis -Blood Stream Catheter Infection -Unknown System Inflammatory Response Syndrome: Not Applicable Neurological Complaint Exam - Weakness Complaint/Exam Last Known Well: 1 day Onset: Gradual Duration: PRESENT DISCHARGED FROM [facility] 08/01/17 Symptoms Are: Still present Timing: Intermittent (LAST NIGHT AROUND 7 PM) Episodes Lasting: Hours Initial Severity: Mild Current Severity: Mild Character: Reports: Lightheaded, Weak Aggravating: Reports: None Alleviating: Reports: None Associated Signs and Symptoms: Reports: Change in medication (STARTED ON THE ELQUIST 3 WEEKS AGO FOR AFIB RESULTING ON ABDOMINAL WALL BRUSING SEE PHOTOS). Denies: Nausea, Vomiting, Diaphoresis, Tinnitus, Chest pain, Short of air, Palpitations, Unsteady gait, GI blood loss, Visual changes, Decreased oral intake, Change in diet, OTC meds, Loss of balance Cardiac Risk Factors: Reports: Hypertension, Diabetes CVA Risk Factors: Reports: Diabetes, Hypertension Related Surgical History: Reports: None JVD Present: No Carotid Bruit Present: No Glascow Coma Scale (see protocol): 15 Nystagmus Present: Yes Gag Reflex Present: Yes Meningeal Signs Positive: No Focal Weakness: Present: None Focal Sensory Loss: Present: None Gait: Normal Differential Diagnoses: CAD, MS, Dysrhythmia, Hyperventilation, Hypovolemia, Medication reaction, Metabolic abnormalities, Vasovagal reaction Quality Indicators for Cardiac Chest Pain: EKG in 10min. Quality Indicators for AMI: EKG in 10min. Quality Indicator For Non-Traumatic Chest Pain/Syncope: EKG Performed Review of Systems - Review Of Systems Constitutional: Reports: Malaise, Weakness Eyes: Reports: No symptoms Ears, Nose, Mouth, Throat: Reports: No symptoms Respiratory: Reports: No symptoms Cardiac: Reports: No symptoms GI: Reports: No symptoms : Reports: No symptoms Musculoskeletal: Reports: No symptoms Skin: Reports: Other (BRUSED ABDOMINAL WALL) Neurological: Reports: No symptoms Endocrine: Reports: No symptoms Hematologic/Lymphatic: Reports: No symptoms All Other Systems: Reviewed and Negative Past Medical History - Past Medical History Previously Healthy: No Endocrine: Reports: DM 2, Hypothyroid, Dyslipidemia Cardiovascular: Reports: CAD, Hypertension, CHF, DVT Respiratory: Reports: 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 Denies: Appendectomy, Cholecystectomy, Tonsillectomy, Adenoidectomy, CABG, Stent - Family History Family History: Reports: Unknown - Social History Smoking Status: Never smoker Hx Substance Use: No Alcohol Screening: Occasionally - Immunizations Influenza Vaccine within 12 Months: No Pneumococcal Vaccine up to Date: No Physical Exam - Physical Exam Appearance: Well-appearing, No pain distress, Well-nourished Eyes: ELIZA, EOMI, Conjunctiva clear ENT: Ears normal, Nose normal, Oropharynx normal Respiratory: Airway patent, Breath sounds clear, Breath sounds equal, Respirations nonlabored Cardiovascular: RRR, Pulses normal, No rub, No murmur GI/: Soft, Nontender, No masses, Bowel sounds normal, No Organomegaly Musculoskeletal: Normal strength, ROM intact, No edema, No calf tenderness Skin: Warm, Dry, Normal color Neurological: Sensation intact, Motor intact, Reflexes intact, Cranial nerves intact, Alert, Oriented Psychiatric: Affect appropriate, Mood appropriate Physician Notification - Case Discussed Physician Notified: PMD Time of Notification: 15:00 (TRANSFER PER FAMILY REQUEST) Critical Care Note - Critical Care Note Total Time (mins): 0 Course - Course Hematology/Chemistry: 08/21/17 13:10 08/21/17 13:10 Orders, Labs, Meds: Lab Review 08/21/17 08/21/17 08/21/17 13:00 13:10 13:10 WBC 7.64 RBC 4.83 Hgb 11.2 L Hct 36.4 L MCV 75.4 L MCH 23.2 L MCHC 30.8 L RDW Coeff of Marek 23.9 H Plt Count 203 Immature Gran % (Auto) 0.4 Neut % (Auto) 67.6 Lymph % (Auto) 14.4 [place] % (Auto) 16.4 H Eos % (Auto) 0.8 Baso % (Auto) 0.4 Immature Gran # (Auto) 0.0 Neut # 5.2 Lymph # 1.1 [place] # 1.3 Eos # 0.1 Baso # 0.0 Anisocytosis 2+ Puncture Site O2 Saturation ABG pH ABG pCO2 ABG pO2 ABG HCO3 ABG Total CO2 ABG Base Excess Storm Test O2 Delivery Device Oxygen Liter Flow Sodium 139 Potassium 3.1 L Chloride 102 Carbon Dioxide 30 Anion Gap 10.1 BUN 22 H Creatinine 0.99 Estimated GFR (MDRD) 72.00 BUN/Creatinine Ratio 22.22 Glucose 37 L* Lactic Acid Calcium 8.4 Total Bilirubin 1.5 H AST 17 ALT 17 Alkaline Phosphatase 84 Total Creatine Kinase 24 Troponin I 0.0420 Total Protein 6.0 Albumin 2.7 L Globulin 3.3 Albumin/Globulin Ratio 0.82 Procalcitonin Urine Color Yellow Urine Clarity Clear Urine pH 7.0 Ur Specific [place] 1.015 Urine Protein Negative Urine Glucose (UA) Negative Urine Ketones Negative Urine Blood Negative Urine Nitrite Negative Urine Bilirubin Negative Urine Urobilinogen 1.0 Ur Leukocyte Esterase Negative 08/21/17 08/21/17 08/21/17 13:10 13:10 14:43 WBC RBC Hgb Hct MCV MCH MCHC RDW Coeff of Marek Plt Count Immature Gran % (Auto) Neut % (Auto) Lymph % (Auto) [place] % (Auto) Eos % (Auto) Baso % (Auto) Immature Gran # (Auto) Neut # Lymph # [place] # Eos # Baso # Anisocytosis Puncture Site Rrad O2 Saturation 100.0 ABG pH 7.516 H* ABG pCO2 37.7 ABG pO2 153.0 H ABG HCO3 30.5 H ABG Total CO2 32 H ABG Base Excess 8 H Storm Test + O2 Delivery Device Nc Oxygen Liter Flow 2.00 Sodium Potassium Chloride Carbon Dioxide Anion Gap BUN Creatinine Estimated GFR (MDRD) BUN/Creatinine Ratio Glucose Lactic Acid 21.4 H Calcium Total Bilirubin AST ALT Alkaline Phosphatase Total Creatine Kinase Troponin I Total Protein Albumin Globulin Albumin/Globulin Ratio Procalcitonin < 0.05 Urine Color Urine Clarity Urine pH Ur Specific [place] Urine Protein Urine Glucose (UA) Urine Ketones Urine Blood Urine Nitrite Urine Bilirubin Urine Urobilinogen Ur Leukocyte Esterase Orders Category Date Time Status ABG DRAW REQUEST Stat CARDIO 08/21/17 14:43 Completed EKG-(ED ONLY) Stat CARDIO 08/21/17 12:51 Completed ABG Stat LAB 08/21/17 14:43 Completed BLOOD CULTURE Stat LAB 08/21/17 12:51 Received CBC W/ AUTO DIFF Stat LAB 08/21/17 13:10 Completed COMPREHENSIVE METABOLIC PANEL Stat LAB 08/21/17 13:10 Completed CREATINE KINASE Stat LAB 08/21/17 13:10 Completed LACTIC ACID Stat LAB 08/21/17 13:10 Completed PROCALCITONIN Stat LAB 08/21/17 13:10 Completed RBC MORPHOLOGY Stat LAB 08/21/17 13:10 Completed TROPONIN I Stat LAB 08/21/17 13:10 Completed URINALYSIS C & S IF INDICATED Stat LAB 08/21/17 13:00 Completed Ceftriaxone Sodium [Rocephin] MEDS 08/21/17 15:03 Discontinued 1 gm .ROUTE .STK-MED ONE Ceftriaxone Sodium [Rocephin] 1 gm MEDS 08/21/17 14:38 Active 0.9 % Sodium Chloride [Sodium Chloride] 50 ml IV ONCE Dextrose 50 % in Water [Dextrose 50%-Water Abboject] MEDS 08/21/17 13:18 Discontinued 50 ml .ROUTE .STK-MED ONE CHEST, 1V AP ONLY Stat RADS 08/21/17 14:20 Taken Medications Generic Name Dose Route Start Last Admin Trade Name Freq PRN Reason Stop Dose Admin Ceftriaxone Sodium 1 gm/ 50 mls @ 75 mls/hr 08/21/17 14:38 Sodium Chloride IV 08/21/17 15:17 ONCE STA Vital Signs: Temp Pulse Resp BP Pulse Ox 08/21/17 12:26 98.0 F 103 H 22 121/85 100 Departure - Departure Time of Disposition: 16:30 Disposition: TSF SHORT-TRM HOSP Discharge Problem: Hypoglycemia Instructions: Hypoglycemia in a Person with Diabetes (ED) Condition: Good Pt referred to PMD for follow-up: Yes (TRANSFER ) IPMP verified?: Yes Allergies/Adverse Reactions: Allergies No Known Allergies Allergy (Verified 08/21/17 12:49) Home Medications: Ambulatory Orders Duloxetine HCl [Cymbalta] 30 mg PO DAILY 01/17/13 Levothyroxine Sodium [Synthroid] 125 mcg PO DAILY 01/17/13 Simvastatin 5 mg PO BEDTIME 01/17/13 Bumetanide 2 mg PO DAILY 03/20/15 Albuterol Sulfate [Proair Hfa] 2 puff IH QID PRN 03/21/15 Triamcinolone Acetonide [Kenalog 0.1%] 1 applic TP BID PRN 05/21/15 Potassium Chloride [K-Dur] 20 meq PO DAILY 05/28/17 Omeprazole [Prilosec] 20 mg PO QDAC 05/29/17 Diltiazem HCl [Cardizem] 90 mg PO BID #60 tablet 07/28/17 Apixaban [Eliquis] 2.5 mg PO BID 08/21/17 Bisacodyl [Dulcolax] 10 mg RC ONCE PRN 08/21/17 Diphenoxylate HCl/Atropine [Lomotil 2.5-0.025 mg Tablet] 1 each PO TID PRN 08/21 Ferrous Sulfate [Iron] 325 mg PO BID 08/21/17 Fluticasone/Vilanterol [Breo Ellipta 200-25 Mcg INH] 1 each IH DAILY 08/21/17 Insulin Glargine,Hum.rec.anlog [Lantus] 20 unit SQ DAILY 08/21/17 Insulin Lispro [Humalog] 1 unit SQ QID 08/21/17 Magnesium Hydroxide [Milk of Magnesia] 30 ml PO DIRECTED PRN 08/21/17 Mupirocin [Bactroban Ointment 1 Gram Applicator] 1 gm TP BID 08/21/17 Disposition Discussed With: Patient, Family
[2017-08-21] MEDS ORDERED: SOLU-MEDROL 125 MG IVP STA (16:10)
[2017-08-21] MEDS ORDERED: LASIX IVP STA (16:12)
[2017-08-21] MEDS ORDERED: ZITHROMAX 500 MG in SODIUM CHLORIDE 250 ML IV SCH (16:30)
[2017-08-21] MEDS ORDERED: DEXTROSE 50%-WATER ABBOJECT IVP STA (17:44)
[2017-08-21] MEDS: SODIUM CHLORIDE 1,000 ML IV SCH (17:46)
[2017-08-21 18:02] VITALS: BMI 24.8
[2017-08-21] MEDS ORDERED: MILK OF MAGNESIA PO PRN (18:19)
[2017-08-21] MEDS: DUONEB NEB STA ×2 (18:22→23:30)
[2017-08-21] MEDS ORDERED: DECADRON 4 MG/ML SDV IM SCH (18:30)
[2017-08-21] MEDS: ZITHROMAX PO SCH (18:31)
[2017-08-21] MEDS ORDERED: FERROUS SULFATE ONE (20:50)
[2017-08-21] MEDS ORDERED: SOLU-MEDROL 125 MG IVP SCH (21:00)
[2017-08-21] MEDS ORDERED: DILTIAZEM HCL 90 MG PO SCH (21:00)
[2017-08-21] MEDS ORDERED: NON-FORMULARY MEDICATION (Apixaban [Eliquis] 2.5 MG) PO SCH (21:00)
[2017-08-21] MEDS ORDERED: BACTROBAN OINTMENT 1 GRAM APPLICATOR (ER) TP SCH (21:00)
[2017-08-21] MEDS ORDERED: NON-FORMULARY MEDICATION (Ferrous Sulfate [Iron] 325 MG) PO SCH (21:00)
[2017-08-21] MEDS ORDERED: SIMVASTATIN 5 MG PO SCH (21:00)
[2017-08-21] MEDS: ZOCOR PO SCH (21:07)
[2017-08-21] MEDS: ELIQUIS PO SCH (21:07)
[2017-08-21] MEDS: CARDIZEM PO SCH ×2 (21:08)
[2017-08-21] MEDS: BACTROBAN TP SCH (21:09)
[2017-08-21] MEDS: HUMULIN R SUBCUT PRN (21:10)
[2017-08-21] MEDS ORDERED: XOPENEX 1.25 MG NEB ONE (23:30)
[2017-08-21] MEDS: XOPENEX 1.25 MG NEB SCH (23:30)
[2017-08-22] MEDS: XOPENEX 1.25 MG NEB SCH ×4 (05:25→23:05)
[2017-08-22] MEDS: SYNTHROID PO SCH ×2 (05:45)
[2017-08-22] MEDS: PRILOSEC PO SCH (05:45)
[2017-08-22] MEDS ORDERED: LASIX IVP SCH (06:30)
[2017-08-22] MEDS ORDERED: NON-FORMULARY MEDICATION (Levothyroxine Sodium [Synthroid] 125 MCG) PO SCH (09:00)
[2017-08-22] MEDS: BACTROBAN TP SCH ×2 (09:33→20:58)
[2017-08-22] MEDS: ROCEPHIN 1 GM in SODIUM CHLORIDE 50 ML IV SCH (09:33)
[2017-08-22] MEDS: ZITHROMAX PO SCH (09:34)
[2017-08-22] MEDS: CARDIZEM PO SCH ×4 (09:34→20:57)
[2017-08-22] MEDS: ELIQUIS PO SCH ×2 (09:34→20:57)
[2017-08-22] MEDS: K-DUR PO SCH (09:34)
[2017-08-22] MEDS: CYMBALTA PO SCH (09:36)
[2017-08-22] MEDS: FERROUS SULFATE PO SCH ×2 (09:36→20:57)
--- NOTE | 2017-08-22 10:45 | PCM.PROG ---
Attending Provider: ATTENDING PROVIDER: Dr. SPARKLE MART This patient is seen with Cary Xavier, Nurse Practitioner. DATE OF SERVICE: 08/22/17 SUBJECTIVE: This 82 year old WHITE/ M was hospitalized 08/21/17. Lying in bed, alert in no respiratory distress, breathing well. He is feeling much better after sugar has increased. Labs improved from yesterday. REVIEW OF SYSTEMS: CONSTITUTIONAL: Weakness and fatigue. No night sweats. No fever or chills. HEENT: Eyes: No visual changes. No eye pain. No eye discharge. ENT: No runny nose. No epistaxis. No sinus pain. No odynophagia. No congestion. RESPIRATORY: No cough, no congestion. No hemoptysis. No shortness of breath. CARDIOVASCULAR: No angina symptoms. No CHF symptoms. No atypical chest pain for CAD. No palpitations. No orthopnea.. GASTROINTESTINAL: No abdominal pain. No nausea or vomiting. No diarrhea or constipation. No hematemesis. No hematochezia. GENITOURINARY: No urgency. No frequency. No dysuria. No hematuria. No obstructive symptoms. No discharge. No pain. No significant abnormal bleeding. MUSCULOSKELETAL: No musculoskeletal pain; no joint swelling. NEUROLOGICAL: Awake, alert, oriented to time, place and person. No headache. No neck pain. No syncope. No seizures. No dizziness. PSYCHIATRIC: Not anxious. No depression. No suicidal thoughts. No homicidal thoughts. SKIN: No rash. No lesions. No wounds. ENDOCRINE: No unexplained weight loss. No weight gain. HEMATOLOGIC/LYMPHATIC: No anemia. No purpura. No petechiae. No prolonged or excessive bleeding. No palpable lymph nodes. PHYSICAL EXAMINATION: GENERAL: The patient is awake, alert and oriented, lying in bed in no distress. VITAL SIGNS: Temperature 97.8 F, Pulse 111, Respiratory Rate 18, BP 133/88, Pulse Ox 96% HEENT: Head normocephalic, atraumatic. Eyes: Extraocular muscles are intact. Pupils are equal, round and reactive to light and accommodation. Ears: No lesions. Nose appeared normal. Throat: No exudate or erythema. NECK: Supple. No JVD, no carotid bruit. No lymphadenopathy or thyromegaly. LUNGS: Diminished breath sounds. Clear to auscultation. Percussion note normal. Chest symmetrical. HEART: Irregular heart rate. S1, S2, no S3. No murmurs. No cyanosis or clubbing. No ascites. Pulses: Dorsalis pedis and posterior tibial pulses +1 to +2 both sides. ABDOMEN: Soft. Non-tender. Bowel sounds active. No CVA tenderness. No mass felt. EXTREMITIES: Trace leg edema. Full range of motion of all extremities, equal. NEUROLOGIC: No focal deficit. Cranial nerves II through XII are grossly intact. No headache, no double vision or headache. SKIN: Not dry. Intact. Turgor-normal. LYMPHATIC: No palpable lymph nodes/no lymphedema. MUSCULOSKELETAL: Normal joints with no swelling. Muscle tone is normal. LAB REVIEW: 08/22/17 06:10 08/22/17 06:10 08/22/17 06:10: Total Creatine Kinase 18, Troponin I 0.0470 08/22/17 06:10: Sodium 141, Potassium 3.7, Chloride 103, Carbon Dioxide 29, Anion Gap 12.7, BUN 20 H, Creatinine 1.11 H, Estimated GFR (MDRD) 63.00, BUN/ Creatinine Ratio 18.01, Glucose 183 H D, Calcium 8.1 L, Total Bilirubin 1.1, AST 14 L, ALT 15, Alkaline Phosphatase 80, Total Protein 5.6 L, Albumin 2.4 L, Globulin 3.2, Albumin/Globulin Ratio 0.75 08/22/17 06:10: WBC 3.40 L, RBC 4.60 L, Hgb 10.7 L, Hct 35.2 L, MCV 76.5 L, MCH 23.3 L, MCHC 30.4 L, RDW Coeff of Marek 24.2 H, Plt Count 173, Immature Gran % ( Auto) 0.6, Neut % (Auto) 81.2, Lymph % (Auto) 15.0, [place] % (Auto) 3.2, Eos % ( Auto) 0.0, Baso % (Auto) 0.0, Immature Gran # (Auto) 0.0, Neut # 2.8, Lymph # 0.5 L, [place] # 0.1 L, Eos # 0.0, Baso # 0.0 08/21/17 22:15: Total Creatine Kinase 19, Troponin I 0.0500 08/21/17 16:38: Stl Occult Blood (IFOB) Positive, Stool Occult Blood #2 No specimen received, Stool Occult Blood #3 No specimen received ASSESSMENT: 1. HYPOGLYCEMIA 2. HYPOKALEMIA 3. SEVERE COPD 4. LEG EDEMA 5. CHRONIC CHF 6. DIABETES MELLITUS TYPE 2 PLAN: 1. Stop IV fluids 2. Stop Decadron today 3. Lasix today 4. Resume Bumex tomorrow Plan and coordination of the patient's care discussed in the presence of Television Mechanic and nurse. CONDITION: Stable SCRIBED BY: HARRY VERA Food Inspector scribed while in presence of service performed by Dr. Mart/Cary Xavier APRN on 08/22/17 ([id number])
[2017-08-22] MEDS: SODIUM CHLORIDE 1,000 ML IV SCH (11:46)
--- NOTE | 2017-08-22 16:23 | HP ---
DATE OF SERVICE: 08/22/17 HISTORY OF PRESENT ILLNESS: This is an 82-year-old white male who was brought to the emergency room. He is currently staying at [facility] for physical therapy. He had extreme uncontrolled diabetes mellitus Type 2 likely due to aggressive steroid use for his pulmonary fibrosis. He was started on Lantus. Subsequently his sugar has not responded even though we have decreased the Lantus and he has finished his steroids. He was brought in for hypoglycemia at the assisted with sugars into the 30s and they were unable to raise this. PAST MEDICAL HISTORY: CHF COPD Pulmonary edema Pulmonary fibrosis Acute on chronic kidney failure Chronic kidney disease Anemia Hypothyroidism Diabetes mellitus type 2 GERD Depression Anxiety Atrial fibrillation Dyslipidemia Recurrent pneumonia PAST SURGICAL HISTORY: Status post bilateral total knee replacement Previous empyema with partial resection due to pneumonia REVIEW OF SYSTEMS: CONSTITUTIONAL: No night sweats. Fatigue, weakness. No fever or chills. HEENT: Eyes: No visual changes. No eye pain. No eye discharge. ENT: No runny nose. No epistaxis. No sinus pain. No sore throat. No odynophagia. No ear pain. No congestion. RESPIRATORY: No cough, no congestion. No hemoptysis. No shortness of breath. CARDIOVASCULAR: No angina symptoms. No CHF symptoms. No atypical chest pain for CAD. No palpitations. No orthopnea. GASTROINTESTINAL: No abdominal pain. No nausea or vomiting. No diarrhea or constipation. No hematemesis. No hematochezia. GENITOURINARY: No urgency. No frequency. No dysuria. No hematuria. No obstructive symptoms. No discharge. No pain. No significant abnormal bleeding. MUSCULOSKELETAL: No musculoskeletal pain. No joint swelling. No arthritis. NEUROLOGICAL: Shakiness. No headache. No neck pain. No syncope. No seizures. No dizziness. PSYCHIATRIC: Not anxious. No depression. No suicidal thoughts. No homicidal thoughts. SKIN: No rash. No lesions. No wounds. ENDOCRINE: No unexplained weight loss. No weight gain. HEMATOLOGIC/LYMPHATIC: No anemia. No purpura. No petechiae. No prolonged or excessive bleeding. No palpable lymph nodes. PERSONAL/FAMILY/SOCIAL HISTORY: The patient is retired, currently a resident at [facility] for rehabilitation, . He quit smoking a number of years ago, greater than 20 years ago. Occasional alcohol socially. No illicit drug use. MEDICATIONS: (Home) Cymbalta 30 mg p.o. daily Synthroid 125 mcg p.o. daily Simvastatin 5 mg p.o. bedtime Bumetanide 2 mg p.o. daily ProAir HFA two puff IH q.i.d. p.r.n. Kenalog 0.1% one application TP b.i.d. p.r.n. K-Dur 20 mEq p.o. daily Prilosec 20 mg p.o. q.d a.c. Cardizem 90 mg p.o. b.i.d. Lomotil 2.5-0.025 mg one each p.o. t.i.d. p.r.n. Lantus 20 units SQ daily Humalog one unit SQ q.i.d. Ferrous Sulfate 325 mg p.o. b.i.d. Eliquis 2.5 mg p.o. b.i.d. Dulcolax 10 mg RC once p.r.n. Mupirocin 1 gm TP b.i.d. Milk of Magnesia 30 mL p.o. as directed p.r.n. Breo Ellipta 200-25 mcg INH one each IH daily ALLERGIES: NKDA PHYSICAL EXAMINATION: VITAL SIGNS: Temperature 97.8, heart rate 111, respirations 18, BP 133/88, pulse ox 96%. HEENT: Head normocephalic, atraumatic. Eyes: Extraocular muscles are intact. Pupils are equal, round and reactive to light and accommodation. Ears: No lesions. Nose appeared normal. Throat: No exudate or erythema. NECK: Supple. No JVD, no carotid bruit. No lymphadenopathy or thyromegaly. LUNGS: Diminished breath sounds bilaterally. Clear to auscultation. Percussion note normal. Chest symmetrical. HEART: S1, S2, no S3. No murmurs. No cyanosis or clubbing. No ascites. Pulses: Dorsalis pedis and posterior tibial pulses +1 to +2 both sides. ABDOMEN: Soft. Nontender. Bowel sounds active. No CVA tenderness. No mass felt. EXTREMITIES: Trace bilateral leg edema improved from admission; 2+ pitting edema on admission. Full range of motion of all extremities, equal. NEUROLOGIC: Alert and oriented. No focal deficit. Cranial nerves II through XII are grossly intact. No headache, no double vision or headache. SKIN: Not dry. Intact. Turgor - normal. LYMPHATIC: No palpable lymph nodes/no lymphedema. MUSCULOSKELETAL: Normal joints with no swelling. Muscle tone is normal. LAB VALUES: Chest x-ray reveals bibasilar density representing pneumonia or early vascular congestion. ABGs show on 2L pH 7.516, pc02 37.7, p02 153, base excess of 8, bicarb of 30.5, TC02 32, oxygen saturation 100. He was positive for occult blood in his stool. Hemoglobin 10.7, hematocrit 35.2, white count 3.40, platelets 173. Sodium 141, potassium 3.7, BUN 20, creatinine 1.11, glucose 34 on admission. ASSESSMENT: 1. ACUTE HYPOGLYCEMIA 2. WORSENING LEG EDEMA 3. CHF 4. ATRIAL FIBRILLATION 5. DIABETES MELLITUS TYPE 2 PLAN: 1. Routine telemetry orders 2. CBC, CMP daily 3. Lasix 20 mg IV daily 4. Hold Bumex 5. Decadron 4 mg IM times one 6. Give 15 cc of Dextrose 50% fluid bolus 7. Start on IV fluids D5 1/2 NS at 75 cc/hr 8. Continue Eliquis for atrial fibrillation 9. Regular diet 10. Hold diabetic medications 11. Rocephin 1 gm IV daily 12. Zithromax 500 mg p.o. daily times three days 13. Resume other home medications 14. Will follow closely TIME SPENT: More than 70 minutes. MTDD
[2017-08-22] MEDS: HUMULIN R SUBCUT PRN (20:56)
[2017-08-22] MEDS: ZOCOR PO SCH (20:57)
[2017-08-23] MEDS: XOPENEX 1.25 MG NEB SCH ×4 (05:40→23:09)
[2017-08-23] MEDS: SYNTHROID PO SCH ×2 (05:59)
[2017-08-23] MEDS: PRILOSEC PO SCH (06:00)
[2017-08-23] MEDS: HUMULIN R SUBCUT PRN ×4 (06:07→22:02)
[2017-08-23] MEDS ORDERED: NON-FORMULARY MEDICATION (Bumetanide [Bumetanide] 2 MG) PO SCH (09:00)
[2017-08-23] MEDS: BACTROBAN TP SCH ×2 (09:06→22:05)
[2017-08-23] MEDS: ROCEPHIN 1 GM in SODIUM CHLORIDE 50 ML IV SCH (09:06)
[2017-08-23] MEDS: FERROUS SULFATE PO SCH ×2 (09:07→22:03)
[2017-08-23] MEDS: CARDIZEM PO SCH ×4 (09:07→22:05)
[2017-08-23] MEDS: CYMBALTA PO SCH (09:07)
[2017-08-23] MEDS: ZITHROMAX PO SCH (09:07)
[2017-08-23] MEDS: BUMEX PO SCH (09:07)
[2017-08-23] MEDS: ELIQUIS PO SCH ×2 (09:08→22:03)
[2017-08-23] MEDS: K-DUR PO SCH (09:08)
[2017-08-23] MEDS ORDERED: LANOXIN IVP STA (10:16)
[2017-08-23] MEDS ORDERED: LANTUS SUBCUT SCH (21:00)
[2017-08-23] MEDS: ZOCOR PO SCH (22:05)
[2017-08-24] MEDS: XOPENEX 1.25 MG NEB SCH ×2 (04:44→11:16)
[2017-08-24] MEDS: PRILOSEC PO SCH (05:34)
[2017-08-24] MEDS: SYNTHROID PO SCH ×2 (05:34)
[2017-08-24] MEDS ORDERED: PREDNISONE PO SCH (08:00)
[2017-08-24] MEDS ORDERED: LANOXIN PO SCH (09:00)
[2017-08-24] MEDS: BUMEX PO SCH (09:38)
[2017-08-24] MEDS: CARDIZEM PO SCH ×2 (09:38→09:39)
[2017-08-24] MEDS: K-DUR PO SCH (09:38)
[2017-08-24] MEDS: FERROUS SULFATE PO SCH (09:38)
[2017-08-24] MEDS: CYMBALTA PO SCH (09:38)
[2017-08-24] MEDS: BACTROBAN TP SCH (09:39)
[2017-08-24] MEDS: ELIQUIS PO SCH (09:39)
--- NOTE | 2017-08-24 10:57 | PN ---
DATE OF SERVICE: 08/21/17 SUBJECTIVE: The patient was seen in the emergency room, Dr. Lopez was international logistics coordinator at ER. The patient was brought because of weakness and fatigue and inability to walk. The patient has hypoglycemia the sugar while in the emergency room was around 60. The patient had hypoglycemia the previous night now it was called from the longterm by Shawn ABDI. The patient has been given 30 units of Lantus and his Prednisone dose has been on tapering schedule and he was off on Prednisone so the sugar has been dropping. In any case the patient has been given continuous orange juice and sandwiches to keep it up. In any case the patient has a couple bouts of pneumonia in past one month. He is on physical therapy at the longterm. PHYSICAL EXAMINATION: VITALS: oxygen saturation 96% on 2 liters. HEENT: Head normocephalic, atraumatic. Eyes: Extraocular muscles are intact. Pupils are equal, round and reactive to light and accommodation. Ears: No lesions. Nose appeared normal. Throat: No exudate or erythema. NECK: Supple. No JVD, no carotid bruit. No lymphadenopathy or thyromegaly. LUNGS: Decreased breath sounds but clear to auscultation. Percussion note normal. Chest symmetrical. HEART: S1, S2, no S3. No murmurs. No cyanosis or clubbing. No ascites. Pulses: Dorsalis pedis and posterior tibial pulses +1 to +2 both sides. ABDOMEN: Soft. Nontender. Bowel sounds active. No CVA tenderness. No mass felt. EXTREMITIES: 2+ pitting edema. Full range of motion of all extremities, equal. NEUROLOGIC: No focal deficit. Cranial nerves II through XII are grossly intact. No headache, no double vision or headache. SKIN: Not dry. Intact. Turgor - normal. LYMPHATIC: No palpable lymph nodes/no lymphedema. MUSCULOSKELETAL: Normal joints with no swelling. Muscle tone is normal. LABS: potassium 3.1, glucose 37, creatinine 0.9, BUN 22, lactic acid 21, liver profile normal, hgb 11.2, hct 36, WBC 7,600 normal differential and U/A negative. ASSESSMENT: 1. Hypoglycemia because of insulin reaction 2. Leg edema 3. Chronic lung disease 4. Cor pulmonale 5. Diabetes mellitus 6. Hypertension 7. Generalized osteoarthritis could be rheumatoid arthritis. PLAN: 1. Give IV Lasix 2. Elevate the legs 3. 1 cc Decadron everyday 4. Discontinue Lantus insulin 5. Put patient on Accu-checks with coverage 6. Continue the rest of the medication 7. Hold Bumex for now. TIME SPENT: More than 30 minutes. Plan and coordination of the patient's care discussed in the presence of nurse. MATTHEW
--- NOTE | 2017-08-24 11:01 | CM.DICTOOL ---
ADMISSION: 08/21/17 16:21 DISCHARGE: 2017 DATE OF SERVICE: 08/24/17 FINAL DIAGNOSIS HYPOGLYCEMIA HYPERTENSION CLD HISTORY OF RECENT PNEUMONIA ATRIAL FIBRILLATION, ON ELIQUIS DM, TYPE 2 HYPOTHYROID DYSLIPIDEMIA ANEMIA CAD CHF OSTEOARTHRITIS DECUBITUS ULCER, STAGE II RIGHT AND LEFT BUTTOCK CHRONIC KIDNEY DISEASE, STAGE 3 LEG EDEMA BILATERAL, TOTAL KNEE REPLACEMENT LEFT FOOT SURGERY LAST VITALS Temp Pulse Resp BP Pulse Ox 97.0 F L 112 H 16 102/62 94 L 08/24/17 06:00 08/24/17 09:38 08/24/17 06:00 08/24/17 06:00 08/24/17 06:00 ACTIVE HOME MEDICATIONS Apixaban (Eliquis) 2.5 mg PO BID [facility] Last Admin: 08/24/17 09:39 Dose: 2.5 mg Bumetanide (Bumex) 2 mg PO DAILY [facility] Last Admin: 08/24/17 09:38 Dose: 2 mg Digoxin (Lanoxin) 125 mcg PO EVERY OTHER DAY [facility] Last Admin: 08/24/17 09:38 Dose: 125 mcg (NEW MEDICATION) Diltiazem HCl (Cardizem) 30 mg PO BID [facility] Last Admin: 08/24/17 09:38 Dose: 30 mg Diltiazem HCl (Cardizem) 60 mg PO BID [facility] Last Admin: 08/24/17 09:39 Dose: 60 mg Duloxetine HCl (Cymbalta) 30 mg PO DAILY [facility] Last Admin: 08/24/17 09:38 Dose: 30 mg Ferrous Sulfate (Ferrous Sulfate) 324 mg PO BID [facility] Last Admin: 08/24/17 09:38 Dose: 324 mg Insulin Glargine (Lantus) 15 unit SUBCUT BEDTIME [facility] (DOSE CHANGE) Last Admin: 08/23/17 22:02 Dose: 15 unit Insulin Human Regular (Humulin R) 0 unit SUBCUT PRN PRN; Protocol PRN Reason: Hyperglycemica Last Admin: 08/23/17 22:02 Dose: 3 unit Levalbuterol HCl (Xopenex 1.25 Mg) 1 vial NEB RTQ6H [facility] Last Admin: 08/24/17 04:44 Dose: 1 vial Levothyroxine Sodium (Synthroid) 100 mcg PO QDAC [facility] Last Admin: 08/24/17 05:34 Dose: 100 mcg Levothyroxine Sodium (Synthroid) 25 mcg PO QDAC [facility] Last Admin: 08/24/17 05:34 Dose: 25 mcg Magnesium Hydroxide (Milk Of Magnesia) 30 ml PO DAILY PRN PRN Reason: CONSTIPATION Mupirocin (Bactroban) 1 applic TP BID [facility] Last Admin: 08/24/17 09:39 Dose: 1 applic Omeprazole (Prilosec) 20 mg PO QDAC [facility] Last Admin: 08/24/17 05:34 Dose: 20 mg Potassium Chloride (K-Dur) 20 meq PO DAILY [facility] Last Admin: 08/24/17 09:38 Dose: 20 meq Prednisone (Prednisone) 5 mg PO Q48H [facility] Last Admin: 08/24/17 09:38 Dose: 5 mg (NEW MEDICATION) Simvastatin (Zocor) 5 mg PO BEDTIME [facility] Last Admin: 08/23/17 22:05 Dose: 5 mg Bactroban ointment 1 gram TP BID Last Admin: 08/23/17 Breo Ellipta 200-25 Mcg One IH Daily Last Admin: Albuterol Nebulizer Treatments Q 6 hours Last Admin: ProAir HFA 2 puffs IH QID PRN Last Admin: ALLERGIES No Known Allergies Allergy (Verified 08/21/17 12:49) NEW PRESCRIPTIONS: Lanoxin 0.125 mg 4 (four) days per week Prednisone 5 mg Every other day Lantus 15 units SQ at bedtime daily Regular Insulin Sliding Scale AC and HS per accu-check result 200-250 = 2 units 251-300= 4 units 301-350=6 units 351-400=8 units OVER 400 give 8 units and call physician SMOKING: Not applicable DISEASE SPECIFIC EDUCATION: Medications Diabetes Chronic Lung Disease LAB REVIEW: 08/24/17 07:55 08/24/17 07:55 08/24/17 07:55: Sodium 138, Potassium 3.5, Chloride 100, Carbon Dioxide 25, Anion Gap 16.5, BUN 16, Creatinine 1.10, Estimated GFR (MDRD) 64.00, BUN/ Creatinine Ratio 14.54, Glucose 138 H, Calcium 8.4, Total Bilirubin 0.7, AST 9 L , ALT 8 L, Alkaline Phosphatase 80, Total Protein 5.4 L, Albumin 3.1 L, Globulin 2.3, Albumin/Globulin Ratio 1.35 08/24/17 07:55: WBC 7.28, RBC 4.34 L, Hgb 10.0 L, Hct 34.1 L, MCV 78.6 L, MCH 23.0 L, MCHC 29.3 L, RDW Coeff of Marek 24.7 H, Plt Count 190, Immature Gran % ( Auto) 0.7, Neut % (Auto) 73.3, Lymph % (Auto) 11.3, [place] % (Auto) 13.2 H, Eos % (Auto) 1.4, Baso % (Auto) 0.1, Immature Gran # (Auto) 0.1, Neut # 5.3, Lymph # 0.8, [place] # 1.0, Eos # 0.1, Baso # 0.0 08/24/17 07:30: Puncture Site R rad, O2 Saturation 94.0 L, ABG pH 7.517 H*, ABG pCO2 35.0, ABG pO2 65.0 L, ABG HCO3 28.4 H, ABG Total CO2 29 H, ABG Base Excess 5 H, Storm Test +, FiO2 % 21.0 PLAN: Discharge home Diet: Consistent Carbohydrate, Regular Liquids, Regular Texture with bedtime snack Activity: May be up in the chair and to the dining room Elevate legs above the level of the hips when sitting in the chair and when lying in bed Decubitus care to both buttocks BID Discourage use of depends, encourage frequent changing of depends to avoid excess moisture to his skin Accu-checks AC and HS Physical and Occupational therapy evaluation and continued treatment CBC, CMP weekly x 2 Start on the 22nd Lanoxin level with next lab work (do on [id number]) Nasal oxygen at 2 liters continuous Elevate head of the bed at night Cary Xavier APRN to see the patient on intermediate rounds in 7-10 days Mr. Oneill is alert and oriented x 3. He is cooperative with care, very aware of medications, medical conditions and progress or lack of progress. He is very enthusiastic in regards to completion of physical and occupational therapy at [facility]. Meal intakes are good at 100%. No abdominal pain or nausea. Last bowel movement on the . He is voiding per urinal, but does have urinary dribbling. Accu-check this morning was 140. Oxygen in place at 2 liters continuous. No cough or respiratory distress noted. Trace of pitting edema to the lower extremities. Mr. Oneill has a stage II decubitus to the right buttock and to the left buttock; approx the size of a dime. No other skin breakdown is noted. Luan Olivier MD Cary Xavier APRN
[2017-08-24 11:22] VITALS: BP 155/71; TEMP 98.3
--- NOTE | 2017-08-24 11:24 | PN ---
DATE OF SERVICE: 08/22/17 SUBJECTIVE: The patient was hospitalized with hypoglycemia. The patient's blood sugar is better and he is feeling better. His leg edema is much less. He has been given IV Lasix for that. Advised to elevate the legs. His cardiovascular and respiratory status is stable with oxygen saturation 96% on 2 liters. CONDITION: Stable The patient was seen and examined with Nurse Practitioner. TIME SPENT: More than 30 minutes. Plan and coordination of the patient's care discussed in the presence of nurse. MATTHEW
[2017-08-24] MEDS: HUMULIN R SUBCUT PRN (11:51)
--- NOTE | 2017-08-28 08:12 | PN ---
DATE OF SERVICE: 08/23/17 SUBJECTIVE: 82 year old white male hospitalized with hypoglycemia. The patient's sugar is 191, creatinine 1.3 and BUN 24. The patient has leg edema which seems to be +1. He came in with +2 pitting edema and he is advised to keep his legs up. REVIEW OF SYSTEMS: CONSTITUTIONAL: No night sweats. No fatigue, malaise, lethargy. No fever or chills. HEENT: Eyes: No visual changes. No eye pain. No eye discharge. ENT: No runny nose. No epistaxis. No sinus pain. No sore throat. No odynophagia. No congestion. RESPIRATORY: No cough, no congestion. No hemoptysis. No shortness of breath. CARDIOVASCULAR: No angina symptoms. No CHF symptoms. No atypical chest pain for CAD. No palpitations. No orthopnea. GASTROINTESTINAL: No abdominal pain. No nausea or vomiting. No diarrhea or constipation. No hematemesis. No hematochezia. GENITOURINARY: No urgency. No frequency. No dysuria. No hematuria. No obstructive symptoms. No discharge. No pain. No significant abnormal bleeding. MUSCULOSKELETAL: No musculoskeletal pain; no joint swelling. NEUROLOGICAL: No headache. No neck pain. No syncope. No seizures. No dizziness. PSYCHIATRIC: Not anxious. No depression. No suicidal thoughts. No homicidal thoughts. SKIN: No rash. No lesions. No wounds. ENDOCRINE: No unexplained weight loss. No weight gain. HEMATOLOGIC/LYMPHATIC: No anemia. No purpura. No petechiae. No prolonged or excessive bleeding. No palpable lymph nodes. PHYSICAL EXAMINATION: GENERAL: The patient is oriented to time, place and person. VITAL SIGNS: Temperature 97, pulse 65, respiratory rate 20, blood pressure 118/ 82 and pulse ox 100. HEENT: Head normocephalic, atraumatic. Eyes: Extraocular muscles are intact. Pupils are equal, round and reactive to light and accommodation. Ears: No lesions. Nose appeared normal. Throat: No exudate or erythema. NECK: Supple. No JVD, no carotid bruit. No lymphadenopathy or thyromegaly. LUNGS: Decreased breath sounds but clear to auscultation. Percussion note normal. Chest symmetrical. HEART: S1, S2, no S3. No murmurs. No cyanosis or clubbing. No ascites. Pulses: Dorsalis pedis and posterior tibial pulses +1 to +2 both sides. ABDOMEN: Soft. Nontender. Bowel sounds active. No CVA tenderness. No mass felt. EXTREMITIES: No edema. Full range of motion of all extremities, equal. NEUROLOGIC: No focal deficit. Cranial nerves II through XII are grossly intact. No headache, no double vision or headache. SKIN: Not dry. Intact. Turgor - normal. LYMPHATIC: No palpable lymph nodes/no lymphedema. MUSCULOSKELETAL: Normal joints with no swelling. Muscle tone is normal. LABS: Hgb 9.6, hct 31, WBC 6,300 normal differential, creatinine 1.3, BUN 24, potassium 3.5. ASSESSMENT: 1. Hypoglycemia, seems to have resolved. The patient is on Accu-checks with coverage. PLAN: 1. We will put the patient on Lantus 15 units 2. Advised the patient to walk with walker. 3. Explained about leg edema which needs to be controlled better with just elevating the legs as much as he could so that we don't have to give him aggressive diuretic therapy to mess up his kidney functions as we can use some Metformin and control the blood sugar without using insulin. He agreed. TIME SPENT: More than 30 minutes. Plan and coordination of the patient's care discussed in the presence of nurse. MATTHEW
--- NOTE | 2017-08-28 08:19 | PN ---
DATE OF SERVICE: 08/24/17 SUBJECTIVE: 82 year old white male hospitalized with with hypoglycemia. The patient's condition has improved. Hypoglycemia has resolved. The patient is going to be on Lantus 15 units instead of 30. His prednisone dose has been reduced. Will monitor the Accu-checks with coverage. The patient was explained about his hypoglycemia with Prednisone. Also the patient has leg edema for which he has been aggressively at times treated with diuretic. He was explained about how to keep the legs up and the edema down so that we don't have to use Lasix and also explained about that if he doesn't have to use Lasix and if his creatinine and BUN stays within acceptable range he could be restarted on oral medications like Metformin. The patient's respiratory status is so good that his arterial blood gasses are excellent. Side effects of Prednisone discussed like Osteoporosis, Cataracts and Avascular necrosis of the femoral heads. The patient is going to be discharged to the nursing for further rehab which he needs for both need replacement with inability to ambulate unless he takes the help of walker with assistance. CONDITION: Stable. The patient was seen and examined with Nurse Practitioner. TIME SPENT: More than 30 minutes. Plan and coordination of the patient's care discussed in the presence of nurse. MATTHEW
--- NOTE | 2017-08-28 08:21 | PN ---
08/21/17: Level 5 08/22/17: Intermediate 08/23/17: Intermediate 08/24/17: D as in discharge MTDD
--- NOTE | 2017-09-13 15:11 | DS ---
5DATE OF SERVICE: 08/24/17 FINAL DIAGNOSIS: 1. HYPOGLYCEMIA 2. HYPERTENSION 3. CORONARY ARTERY DISEASE 4. HISTORY OF RECENT PNEUMONIA 5. ATRIAL FIBRILLATION ON ELIQUIS 6. DIABETES MELLITUS TYPE II 7. HYPOTHYROIDISM 8. DYSLIPIDEMIA 9. ANEMIA 10. CONGESTIVE HEART FAILURE 11. OSTEOARTHRITIS 12. DECUBITUS ULCER STAGE II RIGHT AND LEFT BUTTOCKS 13. CHRONIC KIDNEY DISEASE STAGE III 14. LEG EDEMA 15. BILATERAL TOTAL KNEE REPLACEMENT 16. LEFT FOOT SURGERY VITAL SIGNS AT DISCHARGE: Temperature 97.0, pulse 112, respiratory rate 16, blood pressure 102/62 and pulse oximetry 94%. HOME MEDICATIONS: ELIQUIS 2.5 MG TWICE DAILY BUMEX 2 MG DAILY LANOXIN 125 MCG EVERY OTHER DAY CARDIZEM 30 MG TWICE DAILY CARDIZEM 60 MG TWICE DAILY CYMBALTA 30 MG DAILY FERROUS SULFATE 324 MG TWICE DAILY LANTUS 15 UNITS SUBQ AT BEDTIME (DOSE CHANGE) HUMULIN R PRN XOPENEX 1.25 MG NEB EVERY 6 HOURS SYNTHROID 100 MCG DAILY AT AC SYNTHROID 25 MCG DAILY AT AC MILK OF MAGNESIA 30 ML DAILY PRN BACTROBAN 1 APPLICATION BID PRILOSEC 20 MG DAILY AT AC K-DUR 20 MEQ DAILY PREDNISONE 5 MG EVERY 48 HOURS 9NEW MED0 ZOCOR 5 MG AT BEDTIME BREO ELLIPTA 200/25 MCG INH DAILY ALBUTEROL NEBS EVERY 6 HOURS PROAIR HFA 2 PUFFS FOUR TIMES DAILY PRN ALLERGIES: No know drug allergies. NEW PRESCRIPTIONS: Lanoxin 0.125 mg four days per week Prednisone 5 mg every other day Lantus 15 units SQ at bedtime Regular Insulin per sliding scale AC and HS per Accu-check result: 200-250 - 2 units 251-300 - 4 units 301-350 - 6 units 351-400 - 8 units over 400 give 8 units and call physician SMOKING: NA DISEASE SPECIFIC EDUCATION: Medications, diabetes mellitus and chronic obstructive pulmonary disease. LABS: BUN 16, creatinine 1.10, glucose 138, WBC 7.28, RBC 4.34, hemoglobin 10.0 , hematocrit 34.1. ABG with pH 7.517, PCO2 35.0, PO2 65.0 and HC03 28.4. PLAN: 1. Discharge to home. 2. Diet: Consistent carbohydrates, regular liquids, regular texture with bedtime snack. 3. Activity: May be up in the chair and to the dining room. 4. Elevate the legs above the level of the hips when sitting in the chair and when lying in the bed. 5. Decubitus care to both buttocks twice daily. 6. Discourage use of Depends, encourage frequent changing of Depends to avoid excess moisture to his skin. 7. Accu-checks Ac and HS. 8. PT/OT to evaluate and treat. 9. CBC, CMP weekly starting on the . 10. Lanoxin level with next lab on the . 11. Nasal oxygen at 2 liters continuously. 12. Elevate the head of the bed at night. 13. Cary Xavier APRN, to see the patient on custodial rounds in 7-10 days. HOSPITAL COURSE: This is an 82-year-old male who has currently been at [facility]. On his admission there he was having elevated sugars into the 500 to 600 's. He was started on Lantus 40 mg at night. His Metformin was discontinued due to his chronic kidney disease and elevated kidney function. He was also on steroids for chronic lung disease. During the course of his stay there his steroid use has been gradually tapered down due to improvement in his lungs. However, he started experiencing some hypoglycemia. We decreased his Lantus accordingly, was down to 20 units; however, he was experiencing sugars into the 30s that were not increasing with oral intake so he was brought to the emergency room via ambulance from the custodial. His initial glucose was 32. He was cool and clammy; however, not confused. He was subsequently admitted. His ABGs were abnormal however they were good for his baseline. He had 2+ pitting edema on admission which he had been given Lasix 40 mg orally in addition to his Bumex for the past two days at the custodial; however, this had not made a difference. Chest x-ray revealed no pneumonia however possible early pulmonary congestion so we ordered Lasix 20 mg IV daily times two days. He was given an initial shot of Decadron 4 mg upon admission as well as 15 cc of 50% Dextrose. His sugar quickly increased and he became asymptomatic. I discontinued any further steroids in order to find his baseline sugars so that we could decide the appropriate Lantus dose. His sugar has normalized over the past few days without the use of steroids. We will discharge him back to the custodial on 15 units of Lantus at night and no oral diabetes medication due to kidney function. Due to chronic lung disease, we will place him on Prednisone 5 mg p.o. every other day. He had recently developed atrial fibrillation on last hospital visit approximately one month ago likely due to chronic lung disease and LVH. He is on Eliquis 2.5 mg b.i.d., the lower dose due to his kidney function. On admission, his hemoglobin was around 9. Today, on day of discharge it is up to 10, which is good for him. He has anemia secondary to chronic kidney disease. All of his conditions have been discussed in detail with him and he demonstrates understanding. His leg edema resolved within 48 hours and he is going back to the custodial with no leg edema. He has been instructed to keep his legs elevated when he is not doing physical therapy. The risks of the Prednisone therapy had been discussed, the risks vs benefits and again he demonstrates understanding. We will continue to monitor his glucose with 15 units of Lantus at night and that is it. He will have sliding scale coverage if needed. He is instructed to elevate his legs. All the rest of his medications will resume as they were previously. His rate has been somewhat elevated with the atrial fib. We will start him on 125 mcg of Digoxin every other day with repeat Digoxin level on Monday. He received one dose of Digoxin IV 125 mg here in the hospital and has responded well. We will carefully proceed with this due to his kidney disease. We will followup with him shortly in the custodial or sooner if needed. TIME SPENT: More than 60 minutes. MTDD
== END 2017-08-24 13:10 | DRG 638 ==
LOC: ED 12:20 → MEDSURG A 16:21
PROVIDERS: ADMIT Internal Medicine; ATTEND Internal Medicine
DX: E11.649 Type 2 diabetes mellitus with hypoglycemia without coma (principal); I13.0 Hypertensive heart and chronic kidney disease with heart failure and stage 1 through stage 4 chronic kidney disease, or unspecified chronic kidney disease; Z79.4 Long term (current) use of insulin; I50.9 Heart failure, unspecified; I25.10 Atherosclerotic heart disease of native coronary artery without angina pectoris; I48.91 Unspecified atrial fibrillation; E03.9 Hypothyroidism, unspecified; E78.5 Hyperlipidemia, unspecified; D64.9 Anemia, unspecified; M19.90 Unspecified osteoarthritis, unspecified site; L89.322 Pressure ulcer of left buttock, stage 2; L89.312 Pressure ulcer of right buttock, stage 2; N18.3 Chronic kidney disease, stage 3 (moderate); R60.9 Edema, unspecified; Z96.653 Presence of artificial knee joint, bilateral
CPT/HCPCS: 36415; 80053; 81001; 82272; 82550; 82803; 82962; 83605; 84145; 84484; 85008; 85025; 87040; 87081; 93005; 93010; 94640; 96365; 96375; 99223; 99232; 99239; 99284

== ENCOUNTER 2017-09-06 15:08 | Inpatient (IN) ==
[2017-09-06] MEDS ORDERED: ATROPINE SULFATE PFS IVP PRN (15:25)
[2017-09-06] MEDS ORDERED: NITROSTAT SL PRN (15:25)
[2017-09-06] MEDS ORDERED: MORPHINE 4 MG/ML VIAL IVP PRN (15:25)
[2017-09-06] MEDS ORDERED: VISTARIL INJ IM PRN (15:25)
[2017-09-06] MEDS ORDERED: TYLENOL PO PRN (15:25)
[2017-09-06 15:54] VITALS: BMI 25.8
[2017-09-06] MEDS: SOLU-CORTEF 250 MG IVP SCH ×2 (16:39→20:49)
[2017-09-06] MEDS: LASIX IVP SCH (16:39)
[2017-09-06] MEDS: LEXAPRO PO SCH (16:39)
[2017-09-06] MEDS: PULMICORT 0.5 MG/2 ML NEB SCH (16:52)
[2017-09-06] MEDS: XOPENEX 1.25 MG NEB SCH ×2 (16:52→22:43)
[2017-09-06] MEDS ORDERED: PROAIR HFA IH PRN (16:58)
[2017-09-06] MEDS ORDERED: NORCO 7.5-325 PO PRN (16:58)
[2017-09-06] MEDS ORDERED: LANTUS SUBCUT ONE (20:44)
[2017-09-06] MEDS: CARDIZEM PO SCH ×2 (20:48)
[2017-09-06] MEDS: ZOCOR PO SCH (20:49)
[2017-09-06] MEDS: FERROUS SULFATE PO SCH (20:49)
[2017-09-06] MEDS: ELIQUIS PO SCH (20:49)
[2017-09-06] MEDS: HUMULIN R SUBCUT PRN (20:50)
[2017-09-06] MEDS: FORMOTEROL INH SCH (20:51)
[2017-09-06] MEDS: MOMETASONE INH SCH (20:51)
[2017-09-06] MEDS ORDERED: DILTIAZEM HCL 90 MG PO SCH (21:00)
[2017-09-06] MEDS ORDERED: HUMALOG SUBCUT SCH (21:00)
[2017-09-06] MEDS ORDERED: NON-FORMULARY MEDICATION (Ferrous Sulfate [Iron] 325 MG) PO SCH (21:00)
[2017-09-06] MEDS ORDERED: SIMVASTATIN 5 MG PO SCH (21:00)
[2017-09-06] MEDS ORDERED: NON-FORMULARY MEDICATION (Apixaban [Eliquis] 5 MG) PO SCH (21:00)
[2017-09-06] MEDS ORDERED: LANTUS SUBCUT SCH (21:00)
[2017-09-07] MEDS: XOPENEX 1.25 MG NEB SCH ×4 (05:03→23:50)
[2017-09-07] MEDS: PULMICORT 0.5 MG/2 ML NEB SCH ×2 (05:03→17:29)
[2017-09-07] MEDS: SYNTHROID PO SCH ×2 (05:33)
[2017-09-07] MEDS: PRILOSEC PO SCH (05:34)
[2017-09-07] MEDS: LASIX IVP SCH (05:35)
[2017-09-07] MEDS: SOLU-CORTEF 250 MG IVP SCH ×3 (05:35→21:34)
[2017-09-07] MEDS: HUMULIN R SUBCUT PRN ×4 (05:42→21:32)
--- NOTE | 2017-09-07 08:32 | DI ---
EXAM: Single view of the chest. History: Short of breath Comparison: Chest radiograph 08/21/2017 Findings: Atherosclerotic vascular calcifications. Heart is enlarged. Increasing patchy bilateral lung infiltrates. Small bilateral pleural effusions. No pneumothorax. No acute osseous abnormaliti es. Impression: Cardiomegaly with increasing bilateral lung infiltrates could represent edema or pneumon ia.
[2017-09-07] MEDS ORDERED: NON-FORMULARY MEDICATION (Levothyroxine Sodium [Synthroid] 125 MCG) PO SCH (09:00)
[2017-09-07] MEDS: FERROUS SULFATE PO SCH ×2 (09:10→21:38)
[2017-09-07] MEDS: ASPIRIN EC PO SCH (09:10)
[2017-09-07] MEDS: K-DUR PO SCH (09:10)
[2017-09-07] MEDS: CYMBALTA PO SCH (09:10)
[2017-09-07] MEDS: ELIQUIS PO SCH ×2 (09:10→21:38)
[2017-09-07] MEDS: MUCINEX PO SCH ×2 (09:11→21:39)
[2017-09-07] MEDS: FORMOTEROL INH SCH ×2 (09:11→21:34)
[2017-09-07] MEDS: MOMETASONE INH SCH ×2 (09:11→21:34)
[2017-09-07] MEDS: LEXAPRO PO SCH (09:11)
[2017-09-07] MEDS: CARDIZEM PO SCH ×4 (09:11→21:39)
[2017-09-07] MEDS: KENALOG 0.1% TP PRN (12:57)
--- NOTE | 2017-09-07 15:02 | MRI ---
EXAM: Brain MRI with and without contrast. HISTORY: Dementia. COMPARISON: Head CT 05/21/2015 and brain MRI 07/02/2009. TECHNIQUE: Multiplanar, multisequence MR images were acquired of the brain before and after administ ration of intravenous contrast. FINDINGS: The midline structures are central and the craniocervical junction is unremarkable. There is mild to moderate lateral and third ventriculomegaly, widening of both sylvian fissures and enlarg ement of the sulci. These findings are compatible with mild diffuse cerebral volume loss for the pat ient's age. The brain parenchyma has a small 5-6 mm focal area of cystic encephalomalacia in the left posterior t emporal peritrigonal white matter that has a rim of diffusion restriction with faint bright B 1000, d ark ADC signal that may represent persistent or acute ischemia. Chronic lacunes are present in the an terior external capsule and there is either a chronic lacune or dilated perivascular space in the mid left external capsule. Small T2 hyperintensities are present in the supratentorial white matter and there is are more focal areas of patchy T2 hyperintensity in the bilateral parietal occipital perive ntricular white matter. Patchy T2 hyperintensities are present in the mike and these findings are co mpatible with moderate supratentorial and moderately extensive pontine leukomalacia. There is no abn ormal dark gradient echo signal to suggest intracranial hemorrhage. After administration of contrast , no enhancing lesions are identified. There is mild upward bowing of the corpus callosum that may b e due to the lateral ventriculomegaly. The pituitary gland is normal in size with a concave superior border. There are no intraorbital masses. There is undulation of the nasal septum. Mild scattered mucosal t hickening is present in the ethmoid air cells bilaterally. The right maxillary sinus is moderately h ypoplastic. Membrane thickening is present in the inferior left mastoid air cells and there is mucos al thickening in a single left mastoid air cell. There is no abnormal contrast enhancement in the in ternal auditory canals labyrinthine structures. Flow voids are present in the major intracranial arteries and dural venous sinuses. IMPRESSION: 1. Mild diffuse cerebral volume loss and moderate supratentorial and moderately extensive pontine le ukomalacia likely due to chronic ischemic small vessel disease. 2. Chronic lacunes left anterior external capsule. 3. Unexpected result. Chronic lacuna left temporal peritrigonal white matter with a rim of fading d iffusion restriction that may represent persistent or late acute ischemia superimposed on this chroni c infarct.
--- NOTE | 2017-09-07 15:32 | US ---
EXAM: Carotid ultrasound HISTORY: Confusion, weakness COMPARISON: None TECHNIQUE: Carotid ultrasound was performed using wang scale, color, and Doppler imaging was perform ed. FINDINGS: Right carotid: There is atherosclerotic plaque in the common carotid and bulb/proximal internal benson tid artery. Peak systolic velocity measurement in the right internal carotid artery is 0.7 meters pe r second. End-diastolic velocity measurement in the right internal carotid artery is 0.1 meters per second. Right internal to common carotid artery peak systolic velocity ratio is 1.3. Right vertebral artery not visualized. Left carotid: There is atherosclerotic plaque in the common carotid and bulb/proximal internal carot id artery with visual estimate of narrowing [id number] Peak systolic velocity measurement in the left internal carotid artery is 0.8 meters per second. End-diastolic velocity measurement in the left internal carotid artery is 0.2 meters per second. Left internal to common carotid artery peak systolic velocity ratio measures 1.4. Flow in the left vertebral artery is antegrade. IMPRESSION: 1. Right internal carotid: Peak systolic velocity corresponds with mild (less than 50%) stenosis. 2. Left internal carotid: Peak systolic velocity corresponds with mild (less than 50%) stenosis; with the visual estimate of narrowing approximating 50%. 2. Right vertebral artery not visualized. Antegrade flow in the left vertebral artery.
--- NOTE | 2017-09-07 16:48 | RS.OTINEVL ---
Subjective - Patient information Date of Evaluation: 09/07/17 Date of Arrival on Unit: 09/06/17 Admitted From:: Home Usual Living Arrangement: With Spouse Living Arrangement Comments: Pt lives at home with his in a 3 level house. reports patient was doing well at [facility] and when he came home for a few days he became ill. PT IS AT [facility] TAKING REHAB FOR STRENGHTENING Home Environment: House, Stairs (many) Medical History: COPD, Diabetes Medical History Comments:: COPD, asbestos, hx of intubation, lung surgery x 3, hernia's repaired, neuropathy, L foot surgery due to fracture, Bilateral TKA, Hypothyroidism, skin CA, umbilical surgery, DMII. Surgical History: Knee Replacement Surgical History Comments:: Left foot fractured with screws and bone., lung surgery x3, B TKA, skin CA, Hernia surgery, Subjective Information/ Patient Comments:: "I have a humidifier about 8-12 feet from my bed." - Level of function Prior to this admission, the patient could do the following:: Independent Selfcare, Independent ADL's, Independent Ambulation, Drive, Participated in Social Activities Outside home, Volunteer/Work Current Level of Function: Partially Dependent Current Equipment Used at Home: oxygen, nebulizer, rollator Pain Assessment - Pain Pain Score: 0 Interventions - Objective Patient Orientation: Person, Place, Time, Situation Current Interventions: IV's, Oxygen, Telemetry Interventions - ROM Right Upper Extremity AROM: WFL's Left Upper Extremity AROM: WFL's - Strength Right Upper Extremity Strength: Mild Weakness Left Upper Extremity Strength: Mild Weakness - Sensation Right Upper Extremity Sensation: Intact/Normal Left Upper Extremity Sensation: Intact/Normal Balance - Sitting Balance Static Sitting Balance: Fair Dynamic Sitting Balance: Fair - Standing Balance Static Standing Balance: Fair Dynamic Standing Balance: Fair ADL Skills - Self Feeding Self Feeding: Independent - Grooming Grooming: Min Assist - Bathing Bathing UE: Not Tested Bathing LE: Not Tested - Dressing Dressing LE: Not Tested - Toilet Management Toileting Management: Not Tested Functional Mobility - Bed Mobility Rolling R/L: Min Assist Scooting: Min Assist Supine to Sit: Min Assist Sit to Supine: Min Assist - Transfers Sit to Stand: Not Tested Stand to Sit: Not Tested Stand Pivot Transfers: Not Tested - Ambulation Weight Bearing Status: FWB Assistive Device Used: Rolling Walker Assistance needed with Ambulation: Not Tested - Safety Awareness Safety Awareness: Good Additional Treatment Performed - Time with patient Total treatment time: 20 Activities Patient Interests:: Watching Television, Puzzles/Games, Visiting/Socializing Patient Education Patient Education: Education of diagnosis, Home Safety, Education of Plan of Care Teaching Recipient: Patient, Family Comments: Discussing possible solutions to patient getting sick at home. Humidifier is 8-12 feet from patient as he sleeps. Possible mold in basement. Assessment Problem List:: Decreased level of function Rehab Potential: Good Further Therapy Indicated?: Yes Evaluation Complexity: HISTORY: Medium, EXAM OF BODY SYSTEMS: Medium, CLINICAL DECISION MAKING: Medium Short Term Goals - Goals GOAL 1: Pt to be CGA for transfers with RW. Goal to be met by: 09/21/17 GOAL 2: Pt to increase BUE strength to 4+/5. Goal to be met by: 09/21/17 GOAL 3: Pt to be independent with Home Exercise program. Goal to be met by: 09/21/17 Scrap Iron Loader Goals GOAL 1: Pt to be Modified I for sink level ADLS. Goal to be met by: 09/07/17 GOAL 2: Pt to increase BUE strength to 5/5. Goal to be met by: 09/07/17 GOAL 3: Pt to be independent with Home Exercise program. Goal to be met by: 09/07/17 Plan Plan of Care: Therapeutic EX, Neuromuscular Re-Educ, Therapeutic Activity, Self- Care/Home Management Frequency of Treatment: 1-2 X day, as tolerated Duration of Treatment: 2 Weeks Anticipated Discharge Destination: Home Has the Physician been added for Co-signature?: Yes
[2017-09-07] MEDS: ZOCOR PO SCH (21:38)
[2017-09-07] MEDS: LANTUS SUBCUT SCH (21:44)
[2017-09-08] MEDS: XOPENEX 1.25 MG NEB SCH ×4 (05:15→23:50)
[2017-09-08] MEDS: PULMICORT 0.5 MG/2 ML NEB SCH ×2 (05:15→16:55)
[2017-09-08] MEDS: LASIX IVP SCH (05:52)
[2017-09-08] MEDS: SOLU-CORTEF 250 MG IVP SCH (05:53)
[2017-09-08] MEDS: PRILOSEC PO SCH (05:53)
[2017-09-08] MEDS: SYNTHROID PO SCH ×2 (05:53)
[2017-09-08] MEDS: HUMULIN R SUBCUT PRN ×4 (05:54→21:40)
[2017-09-08] MEDS: ELIQUIS PO SCH ×2 (08:19→21:44)
[2017-09-08] MEDS: CYMBALTA PO SCH (08:20)
[2017-09-08] MEDS: LANOXIN PO SCH (08:20)
[2017-09-08] MEDS: CARDIZEM PO SCH ×4 (08:21→21:44)
[2017-09-08] MEDS: ASPIRIN EC PO SCH (08:22)
[2017-09-08] MEDS: KENALOG 0.1% TP PRN (08:22)
[2017-09-08] MEDS: FERROUS SULFATE PO SCH ×2 (08:22→21:43)
[2017-09-08] MEDS: MUCINEX PO SCH ×2 (08:22→21:43)
[2017-09-08] MEDS: LEXAPRO PO SCH (08:22)
[2017-09-08] MEDS: K-DUR PO SCH (08:22)
[2017-09-08] MEDS: FORMOTEROL INH SCH ×2 (08:23→21:39)
[2017-09-08] MEDS: MOMETASONE INH SCH ×2 (08:23→21:39)
--- NOTE | 2017-09-08 14:29 | HP ---
DATE OF SERVICE: 09/06/17 HISTORY OF PRESENT ILLNESS: This is an 82-year-old male patient who presents with shortness of breath with exertion, productive cough with whitish sputum. He is unable to walk. There are no symptoms of CHF. PAST MEDICAL HISTORY: Diabetes mellitus Type 2 COPD, severe, on 02 Lumbar radiculopathy CKD, Stage 3 Dyslipidemia Hypertension Left ventricular hypertrophy Hypothyroidism Dementia Decubitus ulcer PAST SURGICAL HISTORY: Hernia times three Bilateral knees Left foot Chest tube Eye surgery REVIEW OF SYSTEMS: CONSTITUTIONAL: Positive for fatigue. No fever. HEENT: No sinus drainage, no sore throat. RESPIRATORY: Cough. No hemoptysis. CARDIOVASCULAR: Positive for atypical chest pain for coronary artery disease, pleuritic type. Shortness of breath with minimal exertion. No angina or CHF symptoms. GASTROINTESTINAL: No melena or abdominal pain. No GERD. GENITOURINARY: No hematuria, no prostatism, no polyuria. PATIENT SAFETY SITTER: No blackout, no dizziness, no headache, no double vision. MUSCULOSKELETAL: Positive for osteoarthritis pain. ENDOCRINE: No weight loss, no weight gain. SKIN: Not dry, no rash. PSYCHIATRIC: Anxious, mild depression. No suicidal thoughts, no homicidal thoughts. SOCIAL HISTORY: The patient is . He has two daughters. He is retired. Alcohol- social - quit. Nonsmoker. No ilicit drug use. FAMILY HISTORY: Father ; mother . Two brothers . Three sisters - 2 , one living. MEDICATIONS: (HOME) Ferrous Sulfate 324 mg one p.o. two times per day, one a day Eliquis 5 mg p.o. two times per day Digoxin one p.o. one time per day three times per week Lantus 100 unit - 15 units at night Albuterol via nebulizer 4 5imes per day p.r.n. Omeprazole 20 mg one p.o daily before a meal Hydrocodone-Acetaminophen 7.5-325 mg one p.o. three times per day p.r.n. Dulera 200-5 mcg/actuation HFA inhaler once three times per day p.r.n. Diltiazem 90 mg one p.o. two times per day Bumetanide 2 mg p.o. once daily ProAir Hfa two puffs p.r.n. q.8hr K-Tab 20 mEq one p.o. once daily with food Triamcinolone apply thin layer to affected area two times per day Levothyroxine 125 mcg one p.o. once daily Cymbalta 30 mg one p.o. one time per day Simvastatin 5 mg one p.o. daily in the evening Oxygen p.r.n. at night time ALLERGIES: NKDA. IRON (CONSTIPATION) PHYSICAL EXAMINATION: V/S: Pulse 64, BP 102/50, 02 sat 92%, 02 3L/NC. Height 5'1". GENERAL APPEARANCE: Oriented times three. Pallor positive. HEENT: Normal. NECK: No JVP, no bruits. RESPIRATORY: Lungs have creps on left greater than right lung. CARDIOVASCULAR: S1, S2, no S3, no murmurs. No cyanosis, clubbing. No ascites. GI/ABDOMEN: No tenderness. Bowel sounds are active. EXTREMITIES: +2 pitting edema, pulses +1, equal. PATIENT SAFETY SITTER: Deep tendon reflexes, sensory, motor and gait all normal. RECTAL/PROSTATE: 01/21 (1.1) Colonoscopy screening on 10/[address] Maxewll. ASSESSMENT: 1. ACUTE BRONCHITIS 2. RESPIRATORY FAILURE 3. PULMONARY FIBROSIS 4. 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 PNEUMOCONIOSIS 6. COR PULMONALE WITH LEG EDEMA 7. DIABETES MELLITUS 8. SEVERE COPD/RECURRENT PNEUMONIA 9. LUMBAR RADICULOPATHY 10. CHRONIC BRONCHITIS 11. CKD STAGE 3 12. COPD 13. HYPERTENSION 14. LEFT VENTRICULAR HYPERTROPHY 15. HYPOTHYROIDISM 16. DYSLIPIDEMIA 17. LEFT SCIATICA 18. 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 DEMENTIA 21. DECUBITUS ULCER PLAN: 1. Admit regular. 2. Routine telemetry orders. 3. IV Solu-Cortef 15 mg now and q.8hr 4. IV Lasix 20 mg now and q.a.m. 5. ABG now 6. Daily ABG on room air 7. Xopenex q.6hourly nebs 8. Pulmicort b.i.d. 9. Lanoxin level a.m. 10. MRI of brain with contrast 11. Elevate legs 12. Lexapro 1000 p.o. daily 13. Accu-Check with sliding scale 14. Continue all home medications 15. D/C Bumex 16. T4 and TSH ADDENDUM: UA normal. Hemoglobin 10.2, hematocrit 33, WBC 13,000 normal. MCV 77, microcytic hypochromic anemia. Creatinine 1.5, BUN 23, potassium 4. ABGs on room air showed p02 44, pc02 30, pH 7.52 with 85% saturation on room air indicating acute respiratory failure. Chest x-ray on admission showed cardiomegaly with increasing bilateral lung infiltrate and likely edema or pneumonia and doesn't have any symptoms of pneumonia. He has bronchitis with clear sputum, could be he has increased interstitial edema. The patient is already being given IV Lasix. TIME SPENT: More than 70 minutes. MTDD
--- NOTE | 2017-09-08 15:01 | DI ---
EXAM: Single view of the chest. History: Follow-up pneumonia Comparison: Chest radiograph 09/06/2017 Findings: Heart remains enlarged. Persistent but improving bilateral lung infiltrates. No pneumoth orax. Atherosclerotic vascular calcifications. Probable trace pleural effusions. No acute osseous abnormalities. Impression: Cardiomegaly with persistent but improving bilateral lung infiltrates
--- NOTE | 2017-09-08 16:06 | RS.PTINEVL ---
Subjective - Patient information Date of Evaluation: 09/08/17 Date of Arrival on Unit: 09/06/17 Admitted From:: Home Diagnosis: acute bronchitis, respiratory failure, pulmonary fibrosis Usual Living Arrangement: With Spouse Living Arrangement Comments: Pt lives at home with his in a 3 level house. pt states his assists with amb and ADL's. PT IS AT [facility] TAKING REHAB FOR STRENGHTENING Home Environment: House, Stairs (many), Rail Medical History: Hypertension, COPD, Dementia, Diabetes Medical History Comments:: CKD stage 3, anemia, asbestosis, skin CA, rheumatoid arthritis, neuropathy Surgical History: Knee Replacement Surgical History Comments:: L foot sx, inguinal hernia repair, Medications: see chart Subjective Information/ Patient Comments:: pt states he is exhausted having tests all day and very upset about having an incontinent episode with nursing this am. pt also appears SOA - Level of function Prior to this admission, the patient could do the following:: Partially Dependent Ambulation, Volunteer/Work Current Level of Function: Partially Dependent Current Equipment Used at Home: oxygen, nebulizer, rollator Interventions - Objective Patient Orientation: Person, Place, Time, Situation Current Interventions: Oxygen, Telemetry Range of Motion - ROM Right Upper Extremity AROM: Slight limitation (shld flex limited) Left Upper Extremity AROM: Slight limitation (shld flex limited) Right Lower Extremity AROM: WFL's Left Lower Extremity AROM: Slight limitation (L foot/ankle limited due to deformity) Muscle Strength - Muscle Strength Right Upper Extremity Strength: Mild Weakness (shld flex 3-/5, elbow flex/ext 4- /5) Left Upper Extremity Strength: Mild Weakness (shld flex 3-/5, elbow flex/ext 4-/ 5) Right Lower Extremity Strength: Mild Weakness (hip flex 4-/5, knee flex/ext 4-/5 , ankle DF/PF 4/5) Left Lower Extremity Strength: Mild Weakness (hip flex 4-/5, knee flex/ext 4-/5 , ankle Df/PF 3+/5) Sensation - Sensation Right Upper Extremity Sensation: Intact/Normal Left Upper Extremity Sensation: Intact/Normal Right Lower Extremity Sensation: Impaired Left Lower Extremity Sensation: Impaired (n/t B feet L worse than R) Palpation Palpation Findings: None/Normal Balance - Sitting Balance and Reactions Static Sitting Balance: Good Dynamic Sitting Balance: Fair Sitting Equilibrium Reactions: Delayed Left, Delayed Right Sitting Protective Reactions: Delayed Left, Delayed Right - Standing Balance and Reactions Static Standing Balance: Poor Dynamic Standing Balance: Poor Standing Equilibrium Reactions: Delayed Left, Delayed Right Standing Protective Reactions: Delayed Left, Delayed Right - Comments Balance Assessment Comments: pt unable to maintain balance with reaching or with any challenges to balance Functional Mobility - Bed Mobility Rolling R/L: Supervision Scooting: Mod Assist, 2 person assist Supine to Sit: Min Assist, 1 person assist - Transfers Sit to Stand: Min Assist, 1 person assist Stand to Sit: Min Assist, 1 person assist - Safety Awareness Safety Awareness: Good Ambulation - Ambulation Assistive Device Used: Rolling Walker Orthotic/Prosthetic Device: No Distance: 2-3 steps Assistance needed with Ambulation: Min Assist, 1 person assist Gait Deviations: Forward posture, Short stride Ambulation Comments: pt amb with flexed posture, decreased step length. pt unable to amb further due to SOA. pt did have O2 in place Factors Affecting Ambulation: Decreased Balance, Breathing/O2 Saturation, Weakness, Decreased Safety, Cognitive Status, Limited Endurance, Limited Sensation Treatment time - Time with patient Total treatment time: 32 Patient Education - Education Patient Education: Home Exercise Program, Education of Plan of Care Teaching Recipient: Patient Teaching Methods: Discussion Comments: Discussion with patient regarding POC Assessment - Assessment Problem List:: Decreased level of function, Requires training/education, Decreased safety/Risk of falls, Weakness Rehab Potential: Fair Further Therapy Indicated?: Yes Evaluation Complexity: HISTORY: High (CHF, COPD, CKD, resp failure, ), EXAM OF BODY SYSTEMS: Medium, CLINICAL PRESENTATION: Medium, CLINICAL DECISION MAKING: Medium Short Term Goals GOAL #1: pt independent with bed mobility Goal to be met by: 09/11/17 GOAL #2: pt transfer sup to/from sit SBA sit to/from stand CGA Goal to be met by: 09/11/17 GOAL #3: pt amb 75ft with rwx with O2 with min x 1 with no LOB Goal to be met by: 09/11/17 Table Lever Operator Goals GOAL #1: pt transfer sup to/from sit to/from stand with supervision Goal to be met by: 09/14/17 GOAL #2: pt amb 100ft with rwx CGA with no loss of balance Goal to be met by: 09/14/17 GOAL #3: Improved strength BLE 4- to 4/5, pt independent with HEP Goal to be met by: 09/14/17 Plan Plan of Care: Therapeutic EX, Therapeutic Activity Modalities: Hot Pack, Cold Pack/Cryotherapy Frequency of Treatment: 1-2 X day, as tolerated Duration of Treatment: 6 days Anticipated Discharge Destination: Home Has the Physician been added for Co-signature?: Yes
[2017-09-08] MEDS: LANTUS SUBCUT SCH (21:40)
[2017-09-08] MEDS: ZOCOR PO SCH (21:43)
[2017-09-09] MEDS: XOPENEX 1.25 MG NEB SCH ×4 (05:35→23:25)
[2017-09-09] MEDS: PULMICORT 0.5 MG/2 ML NEB SCH ×2 (05:35→16:35)
[2017-09-09] MEDS: PRILOSEC PO SCH (06:19)
[2017-09-09] MEDS: SYNTHROID PO SCH ×2 (06:19)
[2017-09-09] MEDS: HUMULIN R SUBCUT PRN ×4 (06:20→20:43)
[2017-09-09] MEDS: LASIX IVP SCH (06:20)
[2017-09-09] MEDS: FORMOTEROL INH SCH ×2 (08:18→20:41)
[2017-09-09] MEDS: MOMETASONE INH SCH ×2 (08:18→20:41)
[2017-09-09] MEDS: MUCINEX PO SCH ×2 (08:19→20:41)
[2017-09-09] MEDS: CARDIZEM PO SCH ×4 (08:19→20:42)
[2017-09-09] MEDS: FERROUS SULFATE PO SCH ×2 (08:19→20:42)
[2017-09-09] MEDS: K-DUR PO SCH (08:19)
[2017-09-09] MEDS: LEXAPRO PO SCH (08:19)
[2017-09-09] MEDS: PREDNISONE PO SCH (08:19)
[2017-09-09] MEDS: ELIQUIS PO SCH ×2 (08:19→20:42)
[2017-09-09] MEDS: CYMBALTA PO SCH (08:19)
[2017-09-09] MEDS: ZOCOR PO SCH (20:41)
[2017-09-09] MEDS: LANTUS SUBCUT SCH (20:42)
[2017-09-09] MEDS: KENALOG 0.1% TP PRN (20:44)
[2017-09-10] MEDS: XOPENEX 1.25 MG NEB SCH ×4 (05:15→22:45)
[2017-09-10] MEDS: PULMICORT 0.5 MG/2 ML NEB SCH ×2 (05:15→16:35)
[2017-09-10] MEDS: LASIX IVP SCH (05:31)
[2017-09-10] MEDS: PRILOSEC PO SCH (05:31)
[2017-09-10] MEDS: SYNTHROID PO SCH ×2 (05:31)
[2017-09-10] MEDS: HUMULIN R SUBCUT PRN ×4 (05:32→20:15)
[2017-09-10] MEDS: MOMETASONE INH SCH ×2 (09:08→20:14)
[2017-09-10] MEDS: FORMOTEROL INH SCH ×2 (09:08→20:14)
[2017-09-10] MEDS: MUCINEX PO SCH ×2 (09:08→20:15)
[2017-09-10] MEDS: LEXAPRO PO SCH (09:09)
[2017-09-10] MEDS: ELIQUIS PO SCH ×2 (09:09→20:14)
[2017-09-10] MEDS: CYMBALTA PO SCH (09:09)
[2017-09-10] MEDS: FERROUS SULFATE PO SCH ×2 (09:09→20:15)
[2017-09-10] MEDS: PREDNISONE PO SCH (09:09)
[2017-09-10] MEDS: CARDIZEM PO SCH ×4 (09:09→20:15)
[2017-09-10] MEDS: LANOXIN PO SCH (09:10)
[2017-09-10] MEDS: K-DUR PO SCH (09:10)
[2017-09-10] MEDS: ZAROXOLYN PO SCH (12:47)
[2017-09-10] MEDS: ZOCOR PO SCH (20:14)
[2017-09-10] MEDS: LANTUS SUBCUT SCH (20:15)
[2017-09-10] MEDS: KENALOG 0.1% TP PRN (22:02)
[2017-09-11] MEDS: PULMICORT 0.5 MG/2 ML NEB SCH ×2 (04:55→17:48)
[2017-09-11] MEDS: XOPENEX 1.25 MG NEB SCH ×3 (04:55→17:48)
[2017-09-11] MEDS: PRILOSEC PO SCH (05:31)
[2017-09-11] MEDS: SYNTHROID PO SCH ×2 (05:31)
[2017-09-11] MEDS: LASIX IVP SCH (05:32)
[2017-09-11] MEDS: HUMULIN R SUBCUT PRN ×4 (05:32→21:22)
[2017-09-11] MEDS: CARDIZEM PO SCH ×4 (08:29→21:21)
[2017-09-11] MEDS: PREDNISONE PO SCH (08:29)
[2017-09-11] MEDS: LEXAPRO PO SCH (08:30)
[2017-09-11] MEDS: CYMBALTA PO SCH (08:30)
[2017-09-11] MEDS: FERROUS SULFATE PO SCH ×2 (08:30→21:20)
[2017-09-11] MEDS: K-DUR PO SCH (08:30)
[2017-09-11] MEDS: ELIQUIS PO SCH ×2 (08:30→21:20)
[2017-09-11] MEDS: FORMOTEROL INH SCH ×2 (08:31→21:20)
[2017-09-11] MEDS: MUCINEX PO SCH ×2 (08:31→21:21)
[2017-09-11] MEDS: ZAROXOLYN PO SCH (08:31)
[2017-09-11] MEDS: MOMETASONE INH SCH ×2 (08:31→21:20)
[2017-09-11] MEDS: ZOCOR PO SCH (21:20)
[2017-09-11] MEDS: LANTUS SUBCUT SCH (21:24)
[2017-09-12] MEDS: XOPENEX 1.25 MG NEB SCH ×3 (00:50→11:09)
[2017-09-12] MEDS: PRILOSEC PO SCH (05:48)
[2017-09-12] MEDS: SYNTHROID PO SCH ×2 (05:48)
[2017-09-12] MEDS: LASIX IVP SCH (05:54)
[2017-09-12] MEDS: PULMICORT 0.5 MG/2 ML NEB SCH (06:38)
[2017-09-12] MEDS: FORMOTEROL INH SCH (09:28)
[2017-09-12] MEDS: MOMETASONE INH SCH (09:28)
[2017-09-12] MEDS: CYMBALTA PO SCH (09:28)
[2017-09-12] MEDS: CARDIZEM PO SCH ×2 (09:28)
[2017-09-12] MEDS: PREDNISONE PO SCH (09:28)
[2017-09-12] MEDS: LANOXIN PO SCH (09:29)
[2017-09-12] MEDS: FERROUS SULFATE PO SCH (09:29)
[2017-09-12] MEDS: K-DUR PO SCH (09:29)
[2017-09-12] MEDS: MUCINEX PO SCH (09:29)
[2017-09-12] MEDS: ZAROXOLYN PO SCH (09:29)
[2017-09-12] MEDS: LEXAPRO PO SCH (09:30)
[2017-09-12] MEDS: ELIQUIS PO SCH (09:31)
[2017-09-12 10:35] VITALS: BP 122/63; TEMP 97.6
[2017-09-12] MEDS: HUMULIN R SUBCUT PRN (11:30)
--- NOTE | 2017-09-12 11:50 | PN ---
DATE OF SERVICE: 09/11/17 SUBJECTIVE: 82 year old white male hospitalized with respiratory failure. The patient's condition has improved and he is feeling better. pO2 is in the low 50's and saturation 88 to 89% on room air. REVIEW OF SYSTEMS: CONSTITUTIONAL: No night sweats. No fatigue, malaise, lethargy. No fever or chills. HEENT: Eyes: No visual changes. No eye pain. No eye discharge. ENT: No runny nose. No epistaxis. No sinus pain. No sore throat. No odynophagia. No congestion. RESPIRATORY: Mild cough, no congestion. No hemoptysis. No shortness of breath. CARDIOVASCULAR: No angina symptoms. No CHF symptoms. No atypical chest pain for CAD. No palpitations. No orthopnea. No PND. GASTROINTESTINAL: No abdominal pain. No nausea or vomiting. No diarrhea or constipation. No hematemesis. No hematochezia. GENITOURINARY: No urgency. No frequency. No dysuria. No hematuria. No obstructive symptoms. No discharge. No pain. No significant abnormal bleeding. MUSCULOSKELETAL: No musculoskeletal pain; no joint swelling. NEUROLOGICAL: No headache. No neck pain. No syncope. No seizures. No dizziness. PSYCHIATRIC: Not anxious. No depression. No suicidal thoughts. No homicidal thoughts. SKIN: No rash. No lesions. No wounds. ENDOCRINE: No unexplained weight loss. No weight gain. HEMATOLOGIC/LYMPHATIC: No anemia. No purpura. No petechiae. No prolonged or excessive bleeding. No palpable lymph nodes. PHYSICAL EXAMINATION: GENERAL: The patient is oriented to time, place and person. HEENT: Head normocephalic, atraumatic. Eyes: Extraocular muscles are intact. Pupils are equal, round and reactive to light and accommodation. Ears: No lesions. Nose appeared normal. Throat: No exudate or erythema. NECK: Supple. No JVD, no carotid bruit. No lymphadenopathy or thyromegaly. LUNGS: Decreased breath sounds but clear to auscultation with good air entry. Percussion note normal. Chest symmetrical. HEART: S1, S2, no S3. No murmurs. No cyanosis or clubbing. No ascites. Pulses: Dorsalis pedis and posterior tibial pulses +1 to +2 both sides. ABDOMEN: Soft. Nontender. Bowel sounds active. No CVA tenderness. No mass felt. EXTREMITIES: +1 to +2 pitting edema. Full range of motion of all extremities , equal. NEUROLOGIC: No focal deficit. Cranial nerves II through XII are grossly intact. No headache, no double vision or headache. SKIN: Not dry. Intact. Turgor - normal. LYMPHATIC: No palpable lymph nodes/no lymphedema. MUSCULOSKELETAL: Normal joints with no swelling. Muscle tone is normal. ASSESSMENT: 1. Respiratory failure seems to be stable, chronic 2. Chronic bronchitis 3. Pulmonary fibrosis 4. Rheumatoid arthritis 5. Leg edema Dependant PLAN: 1. Continue Zaroxolyn 2. Continue IV Lasix 3. Education about CHF carried out 4. Education about all his medical problems carried out 5. The patient had both knees replaced, weakness lately from chronic Anesis that he has suffered for past 2-3 months. The patient walked with a walker yesterday. The patient is good candidate for physical therapy. He has met the Medicare needs. He has used up all the Medicare days for rehab inpatient but he will be treated as an outpatient with physical therapy. TIME SPENT: More than 30 minutes. Plan and coordination of the patient's care discussed in the presence of nurse. MATTHEW
--- NOTE | 2017-09-12 12:55 | PN ---
DATE OF SERVICE: 09/10/17 SUBJECTIVE: 82 year old white male hospitalized with respiratory failure. The patient has generalized weakness which is related to lack of activity along with multiple medical problems he has with generalized osteoarthritis and rheumatoid arthritis with it's complications. 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 The patient besides that has hypertension and diabetes mellitus has evidence of lacunar infarct with ischemia surrounding part. His carotid scan shows less than 50%. The patient is in atrial fibrillation and on Eliquis. REVIEW OF SYSTEMS: CONSTITUTIONAL: No night sweats. No fatigue, malaise, lethargy. No fever or chills. Weakness and inability to walk unless he uses walker but lately hasn't been able to walk even without walker. HEENT: Eyes: No visual changes. No eye pain. No eye discharge. ENT: No runny nose. No epistaxis. No sinus pain. No sore throat. No odynophagia. No congestion. RESPIRATORY: No cough, no congestion. No hemoptysis. No shortness of breath. CARDIOVASCULAR: No angina symptoms. No CHF symptoms. No atypical chest pain for CAD. No palpitations. No orthopnea. No PND. GASTROINTESTINAL: No abdominal pain. No nausea or vomiting. No diarrhea or constipation. No hematemesis. No hematochezia. GENITOURINARY: No urgency. No frequency. No dysuria. No hematuria. No obstructive symptoms. No discharge. No pain. No significant abnormal bleeding. MUSCULOSKELETAL: No musculoskeletal pain; no joint swelling. NEUROLOGICAL: No headache. No neck pain. No syncope. No seizures. No dizziness. PSYCHIATRIC: Not anxious. No depression. No suicidal thoughts. No homicidal thoughts. SKIN: No rash. No lesions. No wounds. ENDOCRINE: No unexplained weight loss. No weight gain. HEMATOLOGIC/LYMPHATIC: No anemia. No purpura. No petechiae. No prolonged or excessive bleeding. No palpable lymph nodes. PHYSICAL EXAMINATION: GENERAL: The patient is oriented to time, place and person. VITAL SIGNS: Temperature 97.5, pulse 100, respiratory rate 20, blood pressure 137/73 and pulse ox 95%. HEENT: Head normocephalic, atraumatic. Eyes: Extraocular muscles are intact. Pupils are equal, round and reactive to light and accommodation. Ears: No lesions. Nose appeared normal. Throat: No exudate or erythema. NECK: Supple. No JVP, no carotid bruit. No lymphadenopathy or thyromegaly. LUNGS: Few crepitations, dry otherwise good air entry. Percussion note normal. Chest symmetrical. HEART: S1, S2, no S3. No murmurs. No cyanosis or clubbing. No ascites. Pulses: Dorsalis pedis and posterior tibial pulses +1 to +2 both sides. ABDOMEN: Soft. Nontender. Bowel sounds active. No CVA tenderness. No mass felt. EXTREMITIES: +2 pitting edema. Full range of motion of all extremities, equal. Strongly advised patient to keep legs up higher then the hip. NEUROLOGIC: No focal deficit. Cranial nerves II through XII are grossly intact. No headache, no double vision or headache. SKIN: Not dry. Intact. Turgor - normal. LYMPHATIC: No palpable lymph nodes/no lymphedema. MUSCULOSKELETAL: Normal joints with no swelling. Muscle tone is normal. LABS: BUN and creatinine 1 and 25 respective with estimated GFR 68. ASSESSMENT: 1. Chronic respiratory failure seems to be under control 2. Generalized weakness. 3. Chronic lung disease 4. Rheumatoid arthritis 5. Bilateral knee replacement 6. Diabetes Mellitus 7. Hypertension 8. Chronic kidney disease PLAN: 1. PO steroids 2. Discussed with the who is present today with the patient that the patient's problems are multiple usually because of severe ostearthritis along with rheumatoid arthritis and bilateral knee replacement. His mobility has gone down because of the patient's inability to do much lately with his multiple hospitalization with chronic lung disease. The patient's overall status has been deteriorating along with his respiratory status with pulmonary fibrosis. The patient needs to get up. He is going to be put on physical therapy and see how he goes. At home he isn't getting much help. has poor understanding about the patient's needs. We explained to her repeatedly. 3. ABG on room air 4. Zaroxolyn 2.5mg daily for 3 days. 5. Elevate the legs PROGNOSIS: For good physical therapy and response to it is questionable. TIME SPENT: More than 30 minutes. Plan and coordination of the patient's care discussed in the presence of nurse. MATTHEW
--- NOTE | 2017-09-12 13:11 | PN ---
DATE OF SERVICE: 09/07/17 SUBJECTIVE: the patient was hospitalized with acute respiratory failure and worsening of respiratory status. The patient's condition has improved. His breathing is a lot better, his voice is a lot stronger and he is not as much as depressed. REVIEW OF SYSTEMS: CONSTITUTIONAL: No night sweats. Less Fatigue. No fever or chills. HEENT: Eyes: No visual changes. No eye pain. No eye discharge. ENT: No runny nose. No epistaxis. No sinus pain. No sore throat. No odynophagia. No congestion. RESPIRATORY: Mild cough but much less sputum production. No hemoptysis. Less shortness of breath. CARDIOVASCULAR: No angina symptoms. No CHF symptoms. No atypical chest pain for CAD. No palpitations. No orthopnea. No PND. GASTROINTESTINAL: No abdominal pain. No nausea or vomiting. No diarrhea or constipation. No hematemesis. No hematochezia. GENITOURINARY: No urgency. No frequency. No dysuria. No hematuria. No obstructive symptoms. No discharge. No pain. No significant abnormal bleeding. MUSCULOSKELETAL: No musculoskeletal pain; no joint swelling. NEUROLOGICAL: No headache. No neck pain. No syncope. No seizures. No dizziness. PSYCHIATRIC: Not anxious. No depression. No suicidal thoughts. No homicidal thoughts. SKIN: No rash. No lesions. No wounds. ENDOCRINE: No unexplained weight loss. No weight gain. HEMATOLOGIC/LYMPHATIC: No anemia. No purpura. No petechiae. No prolonged or excessive bleeding. No palpable lymph nodes. PHYSICAL EXAMINATION: GENERAL: The patient is oriented to time, place and person. HEENT: Head normocephalic, atraumatic. Eyes: Extraocular muscles are intact. Pupils are equal, round and reactive to light and accommodation. Ears: No lesions. Nose appeared normal. Throat: No exudate or erythema. NECK: Supple. No JVD, no carotid bruit. No lymphadenopathy or thyromegaly. LUNGS: Decreased breath sounds with few crepitations left one has more than the right as usual but good air entry. Percussion note normal. Chest symmetrical. HEART: S1, S2, no S3. No murmurs. No cyanosis or clubbing. No ascites. Pulses: Dorsalis pedis and posterior tibial pulses +1 to +2 both sides. ABDOMEN: Soft. Nontender. Bowel sounds active. No CVA tenderness. No mass felt. EXTREMITIES: No edema. Full range of motion of all extremities, equal. NEUROLOGIC: No focal deficit. Cranial nerves II through XII are grossly intact. No headache, no double vision or headache. SKIN: Not dry. Intact. Turgor - normal. LYMPHATIC: No palpable lymph nodes/no lymphedema. MUSCULOSKELETAL: Normal joints with no swelling. Muscle tone is normal. ASSESSMENT: 1. Acute respiratory failure under treatment likely patient maybe mild pulmonary congestion, no pneumonitis 2. Pulmonary fibrosis 3. Pneumoconiosis PLAN: 1. Continue IV Lasix, patient's edema is much less than before 2. Continue NEBS treatment 3. Steroids 4. The patient is feeling better. Will give physical therapy consult 5. Monitor ABG, telemetry and oximetry 6. was explained about all the findings and explained about his pneumoconiosis with fibrosis and progression of the disease CONDITION: Stabilizing TIME SPENT: More than 30 minutes. Plan and coordination of the patient's care discussed in the presence of nurse. MATTHEW
--- NOTE | 2017-09-12 13:27 | PN ---
DATE OF SERVICE: 09/09/17 SUBJECTIVE: 82 year old white male hospitalized with acute bronchitis,respiratory failure and pneumonitis. The patient's condition has improved. His other problem is weakness with history of rheumatoid arthritis and bilateral knee replacement. He is unable to ambulate. The patient has a problem with pulmonary fibrosis, pneumoconiosis and asbestos exposure with possibility of rheumatoid lung for many years worsening to the point where he has been getting repeat infections on lung with deterioration of his overall health status with weakness. REVIEW OF SYSTEMS: CONSTITUTIONAL: No night sweats. No fatigue, malaise, lethargy. No fever or chills. HEENT: Eyes: No visual changes. No eye pain. No eye discharge. ENT: No runny nose. No epistaxis. No sinus pain. No sore throat. No odynophagia. No congestion. RESPIRATORY: No cough, no congestion. No hemoptysis. No shortness of breath. CARDIOVASCULAR: No angina symptoms. No CHF symptoms. No atypical chest pain for CAD. No palpitations. No orthopnea. GASTROINTESTINAL: No abdominal pain. No nausea or vomiting. No diarrhea or constipation. No hematemesis. No hematochezia. GENITOURINARY: No urgency. No frequency. No dysuria. No hematuria. No obstructive symptoms. No discharge. No pain. No significant abnormal bleeding. MUSCULOSKELETAL: No musculoskeletal pain; no joint swelling. NEUROLOGICAL: No headache. No neck pain. No syncope. No seizures. No dizziness. PSYCHIATRIC: Not anxious. No depression. No suicidal thoughts. No homicidal thoughts. SKIN: No rash. No lesions. No wounds. ENDOCRINE: No unexplained weight loss. No weight gain. HEMATOLOGIC/LYMPHATIC: No anemia. No purpura. No petechiae. No prolonged or excessive bleeding. No palpable lymph nodes. PHYSICAL EXAMINATION: GENERAL: The patient is , lying/sitting in bed in no distress. VITAL SIGNS: Temperature 97.9, pulse 96, respiratory rate 23, blood pressure 117/67 and pulse ox 98%. HEENT: Head normocephalic, atraumatic. Eyes: Extraocular muscles are intact. Pupils are equal, round and reactive to light and accommodation. Ears: No lesions. Nose appeared normal. Throat: No exudate or erythema. NECK: Supple. No JVD, no carotid bruit. No lymphadenopathy or thyromegaly. LUNGS: Decreased breath sounds but good air entry. Percussion note normal. Chest symmetrical. HEART: S1, S2, no S3. No murmurs. No cyanosis or clubbing. No ascites. Pulses: Dorsalis pedis and posterior tibial pulses +1 to +2 both sides. ABDOMEN: Soft. Nontender. Bowel sounds active. No CVA tenderness. No mass felt. EXTREMITIES: No edema. Full range of motion of all extremities, equal. NEUROLOGIC: No focal deficit. Cranial nerves II through XII are grossly intact. No headache, no double vision or headache. SKIN: Not dry. Intact. Turgor - normal. LYMPHATIC: No palpable lymph nodes/no lymphedema. MUSCULOSKELETAL: Normal joints with no swelling. Muscle tone is normal. LABS: Hgb 9.7, hct 32, WBC 9,800 normal differential, creatinine 1.2 and BUN 27. ASSESSMENT: 1. Acute pneumonitis with bronchitis 2. Hypoxemia with chronic respiratory failure 3. Pulmonary fibrosis 4. Generalized weakness with continue deterioration of his overall health status, chronic diagnosis 5. Rheumatoid arthritis 6. Bilateral knee replacement 7. Generalized osteoarthritis 8. Chronic kidney disease 9. Hypertension 10.Dyslipidemia 11.Diabetes mellitus PLAN: 1. Continue supportive measures 2. Continue Steroids, antibiotics 3. Advised to keep walking 4. Encourage physical therapy 5. Diagnosis discussed with the patient CONDITION: Stable 2. 3. TIME SPENT: More than 30 minutes. Plan and coordination of the patient's care discussed in the presence of nurse. MATTHEW
--- NOTE | 2017-09-12 15:13 | CM.DICTOOL ---
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 LVEF 60%. LAST VITALS Temp Pulse Resp BP Pulse Ox 97.6 F 69 12 122/63 92 L 09/12/17 10:00 09/12/17 10:00 09/12/17 10:00 09/12/17 10:00 09/12/17 10:00 ACTIVE HOME MEDICATIONS Acetaminophen/Hydrocodone Bitart ([place] 7.5-325) 1 tab PO TID PRN PRN Reason: pain Albuterol Sulfate (Proair Hfa) 2 puff IH QID PRN PRN Reason: Wheezing Apixaban (Eliquis) 5 mg PO BID [facility] Last Admin: 09/12/17 09:31 Dose: 5 mg Albuterol Nebs 0.83% [facility] QID Last Admin: Digoxin (Lanoxin) 125 mcg PO FOUR DAYS PER WEEK Last Admin: 09/12/17 09:29 Dose: 125 mcg Diltiazem HCl (Cardizem) 30 mg PO BID [facility] Last Admin: 09/12/17 09:28 Dose: 30 mg Diltiazem HCl (Cardizem) 60 mg PO BID [facility] Last Admin: 09/12/17 09:28 Dose: 60 mg Duloxetine HCl (Cymbalta) 30 mg PO DAILY [facility] Last Admin: 09/12/17 09:28 Dose: 30 mg Escitalopram Oxalate (Lexapro) 10 mg PO DAILY [facility] Last Admin: 09/12/17 09:30 Dose: 10 mg Ferrous Sulfate (Ferrous Sulfate) 324 mg PO DAILY [facility] Last Admin: 09/12/17 09:29 Dose: 324 mg Bumex 1 mg PO Daily [facility] Last Admin: Zaroxolyn 2.5 mg three times weekly PRN for leg swelling Last Admin: Insulin Glargine (Lantus) 15 unit SUBCUT BEDTIME [facility] Last Admin: 09/11/17 21:24 Dose: 15 unit Levothyroxine Sodium (Synthroid) 100 mcg PO QDAC [facility] Last Admin: 09/12/17 05:48 Dose: 100 mcg Levothyroxine Sodium (Synthroid) 25 mcg PO QDAC [facility] Last Admin: 09/12/17 05:48 Dose: 25 mcg Metolazone (Zaroxolyn) 2.5 mg PO DAILY [facility] Stop: 09/13/17 12:59 Last Admin: 09/12/17 09:29 Dose: 2.5 mg Non-Formulary Medication (Mometasone/Formoterol [Dulera 200 Mcg/5 Mcg Inhaler]) 2 inh INH BID [facility] Last Admin: 09/12/17 09:28 Dose: 2 inh Omeprazole (Prilosec) 20 mg PO QDAC [facility] Last Admin: 09/12/17 05:48 Dose: 20 mg Potassium Chloride (K-Dur) 20 meq PO DAILY [facility] Last Admin: 09/12/17 09:29 Dose: 20 meq Simvastatin (Zocor) 5 mg PO BEDTIME [facility] Last Admin: 09/11/17 21:20 Dose: 5 mg Triamcinolone Acetonide (Kenalog 0.1%) 1 applic TP BID PRN PRN Reason: rash Last Admin: 09/10/17 22:02 Dose: 1 applic ALLERGIES No Known Allergies Allergy (Verified 08/21/17 12:49) NEW PRESCRIPTIONS: Prednisone 20 mg daily for 5 days, then 10 mg daily for 5 days Mucinex 600 mg take 1 twice a day Zaroxolyn 2.5 mg take 1 three times a week as needed for leg swelling SMOKING: Not Applicable DISEASE SPECIFIC EDUCATION: Leg Edema Nutrition Decubitus Medications, including steroid use and risk of GI irritation, bone demineralization Home Health Activity LAB REVIEW: 09/12/17 04:50 09/12/17 04:50 09/12/17 04:50: Sodium 139, Potassium 3.7, Chloride 99, Carbon Dioxide 33 H, Anion Gap 10.7, BUN 22 H, Creatinine 0.98, Estimated GFR (MDRD) 73.00, BUN/ Creatinine Ratio 22.44, Glucose 112, Calcium 8.4, Total Bilirubin 0.8, AST 16, ALT 17, Alkaline Phosphatase 70, Total Protein 5.4 L, Albumin 2.4 L, Globulin 3.0, Albumin/Globulin Ratio 0.80 09/12/17 04:50: WBC 9.25, RBC 4.49 L, Hgb 10.3 L, Hct 34.7 L, MCV 77.3 L, MCH 22.9 L, MCHC 29.7 L, RDW Coeff of Marek 23.2 H, Plt Count 304, Immature Gran % ( Auto) 1.4, Neut % (Auto) 76.6, Lymph % (Auto) 11.2, [place] % (Auto) 9.1, Eos % ( Auto) 1.6, Baso % (Auto) 0.1, Immature Gran # (Auto) 0.1, Neut # 7.1 H, Lymph # 1.0, [place] # 0.8, Eos # 0.2, Baso # 0.0 PLAN: Discharge home Diet: Consistent Carbohydrates, include protein at each meal and with bedtime snack Activity: Resume as tolerated. Elevate legs above the level of the hips when in bed and when sitting in the chair Continue home oxygen at 3 liters per nasal cannula continuously Continue nebulizer treatments four times a day Medication change: Decrease Ferrous Sulfate to daily Increase Digoxin to four days a week An appointment is scheduled with Dr. Olivier/Cary Xavier APRN on Sep.15 at 2 :15 pm [facility] has been contacted to provide home health services: Nursing Assessment; vital signs, edema, respiratory assessment, weight monitorin Medication compliance Physical and Occupational Evaluation/treatment Home safety Decubitus Care to coccyx (stage II) Mr. Oneill is alert and oriented x 3. He is forgetful at times, but is also hard of hearing. He is independent with transfers, feeding and elimination. He is independent with dressing, but requires minimal assistance with personal care. He is continent of bladder and bowel. He is ambulatory with use of oxygen, rolling walker and assistance of one staff member. He is short of air with exertion. He has continuous oxygen, nebulizer, cane and 2 walkers available in the home for use. He continues to have 1-2+ pitting edema to the lower extremities and is encouraged to elevate the legs at all times. A stage II decubitus is noted to the coccyx, approx. 0.5 cm. The area is open to air and without drainage. A scabbed area is noted to the top of the right great toe. The skin is otherwise intact. Meal intakes are good at 100%. Accu-check readings today at 120 and 170. Luan Olivier MD Cary Xavier APRN
--- NOTE | 2017-09-14 11:17 | DS ---
DATE OF SERVICE: 09/12/17 FINAL DIAGNOSIS: 1. Acute bronchitis 2. Respiratory failure 3. Pneumonitis 4. Pulmonary fibrosis 5. Pneumoconiosis 6. Cor Pulmonale with Leg edema 7. Diabetes Mellitus, Type 2 8. Severe COPD 9. Chronic kidney disease, stage 3 10.Anemia 11.Hypertension 12.LVH 13.Hypothyroid 14.Dyslipidemia 15.Osteoarthritis 16.Dementia 17.History of asbestos exposure 18. Lumbar radiculopathy 19. Decubitus ulcer, stage II coccyx 20. Lung surgery x3 21. Ventral and inguinal hernia repair 22. Bilateral total knee replacement 23. Left foot/ankle surgery 24. Last echo: May 2017: LVH with enlarged left atrial cavity. LVEF 60% LAST VITALS: Temperature 97.6, pulse 69, respiratory rate 12, blood pressure 122/63 and pulse ox 62%. DISCHARGE INSTRUCTIONS: Discharge home. Continue home oxygen at 3 liters per nasal cannula continuously. Continue Nebulizer treatments four times a day. An appointment is scheduled with Dr. Olivier/Cary Xavier APRN on September 15 at 2:15pm. [facility] has been contacted to provide home health services: Nursing Assessment; vital signs, edema , respiratory assessment, weight monitoring, medication compliance, Physical and occupational evaluation/treatment, home safety and Decubitus Care to coccyx(stage II). MEDICATIONS AT DISCHARGE: [place] 7.8-325 PO three times a day PRN ProAir Hfa two puffs IH four times a day PRN Eliquis 5mg PO twice a day Lanoxin 125mcg PO four days per week Cardizem 60mg PO twice a day Cymbalta 30mg PO daily Lexapro 10nmg PO daily Ferrous Sulfate 324mg PO daily Zaroxolyn 2.5mg three times weekly PRN for leg swelling Lantus 15 units SUBCUT bedtime Synthroid 100mcg PO QDAC Zaroxolyn 2.5mg PO daily Dulera 200mcg/5mcg inhaler two inhalations twice a day Prilosec 20mg PO QDAC K-Dur 20 meq PO daily Zocor 5mg PO bedtime Kenalog 0.1% one application TP twice a day PRN ALLERGIES: No known allergies to medication NEW PRESCRIPTIONS: Prednisone 20mg daily for 5 days, then 10mg daily fro 5 days Mucinex 600mg take one twice a day Zaroxolyn 2.5mg take one three times a week as needed for leg swelling. DIET INSTRUCTIONS: Consistent Carbohydrates, include protein at each meal and with bedtime snack. ACTIVITY: Resume as tolerated. Elevate legs above the level of the hips when in bed and when sitting in the chair. SMOKING: N/A DISEASE SPECIFIC EDUCATION: Leg edema Nutrition Decubitus Medications, including steroid use and risk of GI irritation, bone demineralization Home Health Activity HOSPITAL COURSE: 82 year old white male hospitalized with respiratory failure, acute bronchitis and weakness to point where he was not able to walk. The patient was treated with IV Lasix and also given steroids. For leg edema IV Lasix and Xyloxylin were given. The patient's condition improved and his strength improved. His appetite improved and he was able to walk with the walker without any help. The patient will be discharged on Lantus along with PO Prednisone. The and the patient were both explained about his diagnosis several times. His pulmonary fibrosis is progressive. The combination of Rheumatoid lung, pneumoconiosis, exposure to asbestos has caused his problems. The patient will benefit from Home Health to include physical and occupational therapy, home nursing visits for nutrition, medications, monitoring of weight and edema and respiratory status. CONDITION: Stable. TIME SPENT: More than 60 minutes. MTDD
--- NOTE | 2017-09-14 11:20 | PN ---
09/06/17: Level 5 09/07/17: Intermediate 09/08/17: Intermediate 09/09/17: Intermediate 09/10/17: Intermediate 09/11/17: Intermediate 09/12/17: D as in discharge MTDD
--- NOTE | 2017-09-14 13:25 | PN ---
DATE OF SERVICE: 09/12/17 SUBJECTIVE: 82 year old white male hospitalized with respiratory failure acute bronchitis/ pneumonitis. The patient's condition has improved. REVIEW OF SYSTEMS: CONSTITUTIONAL: No night sweats. No fatigue, malaise, lethargy. No fever or chills. Weakness. The patient has been able to walk with the walker several feet yesterday and day before yesterday. HEENT: Eyes: No visual changes. No eye pain. No eye discharge. ENT: No runny nose. No epistaxis. No sinus pain. No sore throat. No odynophagia. No congestion. RESPIRATORY: No cough, no congestion. No hemoptysis. No shortness of breath. CARDIOVASCULAR: No angina symptoms. No CHF symptoms. No atypical chest pain for CAD. No palpitations. No orthopnea. GASTROINTESTINAL: No abdominal pain. No nausea or vomiting. No diarrhea or constipation. No hematemesis. No hematochezia. GENITOURINARY: No urgency. No frequency. No dysuria. No hematuria. No obstructive symptoms. No discharge. No pain. No significant abnormal bleeding. MUSCULOSKELETAL: No musculoskeletal pain; no joint swelling. NEUROLOGICAL: No headache. No neck pain. No syncope. No seizures. No dizziness. PSYCHIATRIC: Not anxious. No depression. No suicidal thoughts. No homicidal thoughts. SKIN: No rash. No lesions. No wounds. ENDOCRINE: No unexplained weight loss. No weight gain. HEMATOLOGIC/LYMPHATIC: No anemia. No purpura. No petechiae. No prolonged or excessive bleeding. No palpable lymph nodes. PHYSICAL EXAMINATION: HEENT: Head normocephalic, atraumatic. Eyes: Extraocular muscles are intact. Pupils are equal, round and reactive to light and accommodation. Ears: No lesions. Nose appeared normal. Throat: No exudate or erythema. NECK: Supple. No JVD, no carotid bruit. No lymphadenopathy or thyromegaly. LUNGS: Decreased breath sounds but good air entry.Clear to auscultation. Percussion note normal. Chest symmetrical. HEART: S1, S2, no S3. No murmurs. No cyanosis or clubbing. No ascites. Pulses: Dorsalis pedis and posterior tibial pulses +1 to +2 both sides. ABDOMEN: Soft. Nontender. Bowel sounds active. No CVA tenderness. No mass felt. EXTREMITIES: Trace to +1 pitting edema. Full range of motion of all extremities, equal. NEUROLOGIC: No focal deficit. Cranial nerves II through XII are grossly intact. No headache, no double vision or headache. SKIN: Not dry. Intact. Turgor - normal. LYMPHATIC: No palpable lymph nodes/no lymphedema. MUSCULOSKELETAL: Normal joints with no swelling. Muscle tone is normal. PLAN: 1. The patient's edema has responded to Xaroxolyn with IV Lasix. 2. The patient has been thoroughly educated about his medical conditions. CONDITION: Stable. TIME SPENT: More than 30 minutes. Plan and coordination of the patient's care discussed in the presence of nurse. MATTHEW
== END 2017-09-12 16:33 | disposition home health service (06) | DRG 202 ==
LOC: MEDSURG A 15:08
PROVIDERS: ADMIT Internal Medicine; ATTEND Internal Medicine
DX: J20.9 Acute bronchitis, unspecified (principal); J18.9 Pneumonia, unspecified organism; I63.9 Cerebral infarction, unspecified; J96.21 Acute and chronic respiratory failure with hypoxia; J44.0 Chronic obstructive pulmonary disease with (acute) lower respiratory infection; I67.82 Cerebral ischemia; I48.91 Unspecified atrial fibrillation; J61 Pneumoconiosis due to asbestos and other mineral fibers; I27.81 Cor pulmonale (chronic); I12.9 Hypertensive chronic kidney disease with stage 1 through stage 4 chronic kidney disease, or unspecified chronic kidney disease; E11.22 Type 2 diabetes mellitus with diabetic chronic kidney disease; N18.3 Chronic kidney disease, stage 3 (moderate); D64.9 Anemia, unspecified; I10 Essential (primary) hypertension; I51.7 Cardiomegaly; E03.9 Hypothyroidism, unspecified; M19.90 Unspecified osteoarthritis, unspecified site; F03.90 Unspecified dementia, unspecified severity, without behavioral disturbance, psychotic disturbance, mood disturbance, and anxiety; M54.16 Radiculopathy, lumbar region; L89.152 Pressure ulcer of sacral region, stage 2; L08.9 Local infection of the skin and subcutaneous tissue, unspecified; B95.7 Other staphylococcus as the cause of diseases classified elsewhere; M06.9 Rheumatoid arthritis, unspecified; R26.2 Difficulty in walking, not elsewhere classified; R60.9 Edema, unspecified; Z96.653 Presence of artificial knee joint, bilateral; Z79.01 Long term (current) use of anticoagulants; Z79.84 Long term (current) use of oral hypoglycemic drugs; Z79.4 Long term (current) use of insulin; Z16.11 Resistance to penicillins
CPT/HCPCS: 36415; 80053; 80162; 81001; 82550; 82803; 82962; 83880; 84436; 84443; 84484; 85025; 87070; 87081; 87186; 93005; 93010; 94640

== ENCOUNTER 2017-11-14 14:28 | Outpatient (CLI) ==
[2017-11-14] MEDS ORDERED: LIDOCAINE HCL 1% SDV IM STA (14:41)
[2017-11-14] MEDS ORDERED: ROCEPHIN IM STA (14:41)
[2017-11-14 14:49] VITALS: BP 124/79; TEMP 97.6
== END 2017-11-14 14:29 | disposition home or self-care (01) ==
LOC: OPMED 14:28
PROVIDERS: ATTEND Internal Medicine
DX: N39.0 Urinary tract infection, site not specified (principal)
CPT/HCPCS: 96372

== ENCOUNTER 2018-02-11 13:02 | Emergency (ER) | payer OTHER ==
[2018-02-11 13:07] VITALS: BP 136/90; TEMP 97.9; BMI 24.5
--- NOTE | 2018-02-11 13:42 | CT ---
Exam: Head CT. Date: 02/11/2018. Comparison: 05/21/2015. HISTORY: Right-sided facial droop. TECHNIQUE: Helical scan of the brain was performed. FINDINGS: The calvarium is intact. The paranasal sinuses and mastoid air cells are clear. Vascular calcifications are present. There is diffuse cerebral and cerebellar volume loss with decre ased attenuation in the periventricular white matter. No abnormal intra or extra-axial fluid, mass o r mass effect is present. There is no midline shift or hydrocephalus. No large vessel infarct or he morrhages identified. The wang-white interface is maintained. Impression: No acute intracranial findings. Senescent changes with chronic microvascular disease. Critical results were called to Dr. Epperson at 1:37 p.m. on 02/11/2018.
--- NOTE | 2018-02-11 13:50 | CT ---
Exam: CT scan of the maxillofacial area. Date: 02/11/2018. Comparison: None. HISTORY: Right facial droop with recent oral surgery. TECHNIQUE: Helical scan of the maxillofacial area was performed without contrast. FINDINGS: The soft tissues overlying the maxillofacial region appear normal. The orbital contents a lso appear normal. The paranasal sinuses and mastoid air cells are clear. There is mild septal nida ation to the right anteriorly. Middle turbinates have a normal orientation. The ostiomeatal complex es are patent. There is no contact the nasal septum and turbinate mucosa. Multiple dental extractio n as are noted. No fracture or visible bony destructive changes are observed in the bones of the max illofacial region. The parapharyngeal accounting director spaces are normal. The parotid and submandibular gl ands are also normal. The tonsils, tongue base and epiglottis appear normal. Impression: No acute findings the maxillofacial region. Multiple dental extractions are noted witho ut visible bony destructive change. However would suggest physical exam to exclude dental pathology.
--- NOTE | 2018-02-11 14:17 | ED.PDOC ---
General ED Provider: Dr. ERIK ERIC-ER Chief Complaint: Stroke Stated Complaint: had right sided dental extractions upper and lower on monday( on eliquis for afbi)...held it for 3 days while on lovenox--now back on eliquis- -=hand numbness and drooping of corner of right lower lip the next day and was concerned Time Seen by Physician: 13:05 Mode of Arrival: Wheelchair Information Source: Patient, Family Exam Limitations: No limitations Primary Care Provider: SPARKLE MART Nursing and Triage Documentation Reviewed and Agree: Yes Does patient meet sepsis criteria?: No System Inflammatory Response Syndrome: Not Applicable Sepsis Protocol: For patient's 13 years and over: Temp is 96.8 and below OR 101 and greater Pulse >90 BPM Resp >20/minute Acutely Altered Mental Status Are patient's symptoms suggestive of a new infection, such as: -Pneumonia -Skin, Soft Tissue -Endocarditis -UTI -Bone, Joint Infection -Implantable Device -Acute Abdominal Infection -Wound Infection -Meningitis -Blood Stream Catheter Infection -Unknown EENT Complaint Exam - Dental/Oral Complaint/Exam Mechanism of Injury: No known trauma Onset/Duration: 2 days Symptoms Are: Still present Timing: Constant Initial Severity: Mild Current Severity: Mild Location: right side of lower lip Character: Denies: Sharp, Dull, Aching, Throbbing Aggravating: Reports: None Alleviating: Reports: None Associated Signs and Symptoms: Reports: Swelling Cardiac Risk Factors: Reports: CAD, Hypertension Cervical Lymphadenopathy Present: No Facial Swelling Present: Yes Bleeding Present: No Oropharynx Findings: Absent: Clots, Active bleeding Septal Hematoma: No Foreign Body Present: No Dysphagia Present: No Drooling Present: No Asymmetrical Tonsillar Swelling Present: No Uvula Midline: Yes Brenda-tonsillar Fluctuence: No Trismus Present: No Palatal Petechiae Present: No Scarlatinaform Rash Present: No Differential Diagnoses: Other Review of Systems - Review Of Systems Constitutional: Reports: No symptoms Eyes: Reports: No symptoms Ears, Nose, Mouth, Throat: Reports: Mouth swelling Respiratory: Reports: No symptoms Cardiac: Reports: No symptoms GI: Reports: No symptoms : Reports: No symptoms Musculoskeletal: Reports: No symptoms Skin: Reports: No symptoms Neurological: Reports: No symptoms Endocrine: Reports: No symptoms Hematologic/Lymphatic: Reports: No symptoms All Other Systems: Reviewed and Negative Past Medical History - Past Medical History Previously Healthy: No Endocrine: Reports: DM 2, Hypothyroid, Dyslipidemia Cardiovascular: Reports: CAD, Hypertension, CHF, DVT Respiratory: Reports: 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 Denies: Appendectomy, Cholecystectomy, Tonsillectomy, Adenoidectomy, CABG, Stent - Family History Family History: Reports: Unknown - Social History Smoking Status: Never smoker Hx Substance Use: No Alcohol Screening: None - Immunizations Influenza Vaccine within 12 Months: No Pneumococcal Vaccine up to Date: No Physical Exam - Physical Exam Appearance: Well-appearing, No pain distress, Well-nourished Eyes: ELIZA, EOMI, Conjunctiva clear ENT: Ears normal, Nose normal, Oropharynx normal Respiratory: Airway patent Cardiovascular: RRR, Pulses normal, No rub, No murmur GI/: Soft, Nontender, No masses, Bowel sounds normal, No Organomegaly Musculoskeletal: Limited ROM Skin: Warm, Dry, Normal color Neurological: Sensation intact, Motor intact, Reflexes intact, Cranial nerves intact, Alert, Oriented Psychiatric: Affect appropriate, Mood appropriate Interpretation - Radiology Interpretation Radiology Interpretation By: Radiologist Radiology Results: Negative Exam Interpreted: CT Scan - EKG Interpretation Time of EKG #1: 14:18 Rate: Tachy Rhythm: Other Ectopy: None [place]: NL ST Segment: Other Interpretation: afib Physician Notification - Case Discussed Physician Notified: dr condon(shift production associate for dr silvestre)--they want to see him tomorrow for recheck Time of Notification: 14:19 Endorsed To/Discussed With: dr hutchinson(neurology shift production associate [facility])--agreed symptoms due to extractions Time of Discussion: 14:19 Critical Care Note - Critical Care Note Total Time (mins): 0 Course - Course Hematology/Chemistry: 02/11/18 13:15 02/11/18 13:15 Orders, Labs, Meds: Lab Review 02/11/18 02/11/18 13:15 13:15 WBC 9.45 RBC 4.96 Hgb 10.7 L Hct 35.7 L MCV 72.0 L MCH 21.6 L MCHC 30.0 L RDW Coeff of Marek 21.8 H Plt Count 215 Immature Gran % (Auto) 0.2 Neut % (Auto) 76.5 Lymph % (Auto) 12.4 Mckenzie % (Auto) 9.3 Eos % (Auto) 1.4 Baso % (Auto) 0.2 Immature Gran # (Auto) 0.0 Neut # (Auto) 7.2 H Lymph # (Auto) 1.2 Mckenzie # (Auto) 0.9 Eos # (Auto) 0.1 Baso # (Auto) 0.0 Sodium 140 Potassium 3.4 L Chloride 92 L Carbon Dioxide 37 H Anion Gap 14.4 BUN 27 H Creatinine 1.34 H Estimated GFR (MDRD) 51.00 BUN/Creatinine Ratio 20.14 Glucose 217 H Calcium 9.5 Total Bilirubin 1.1 AST 19 ALT 10 L Alkaline Phosphatase 76 Total Creatine Kinase 55 Troponin I 0.0540 Total Protein 7.2 Albumin 3.0 L Globulin 4.2 Albumin/Globulin Ratio 0.71 Orders Category Date Time Status EKG-(ED ONLY) Stat CARDIO 02/11/18 13:08 Completed Pediatric Rn [ED DISBURSING OFFICER APPLIED] .ONCE EMERGENCY 02/11/18 13:09 Active CBC W/ AUTO DIFF Stat LAB 02/11/18 13:15 Completed COMPREHENSIVE METABOLIC PANEL Stat LAB 02/11/18 13:15 Completed CREATINE KINASE Stat LAB 02/11/18 13:15 Completed TROPONIN I Stat LAB 02/11/18 13:[address] HEAD W/O CONTRAST Stat RADS 02/11/18 13:[address] MAXILLOFACIAL W/O CONTRAST Stat RADS 02/11/18 13:09 Completed Vital Signs: Temp Pulse Resp BP Pulse Ox 02/11/18 13:02 97.9 F 120 H 20 136/90 95 Departure - Departure Time of Disposition: 14:19 Disposition: HOME SELF-CARE Discharge Problem: Lip deformity, acquired Instructions: Toothache (ED) Condition: Good Pt referred to PMD for follow-up: No IPMP verified?: No Additional Instructions: f/u with dr silvestre/taurus as directed tomorrow Allergies/Adverse Reactions: Allergies No Known Allergies Allergy (Verified 02/11/18 13:10) Home Medications: Ambulatory Orders Duloxetine HCl [Cymbalta] 30 mg PO DAILY 01/17/13 Levothyroxine Sodium [Synthroid] 125 mcg PO DAILY 01/17/13 Simvastatin 5 mg PO BEDTIME 01/17/13 Albuterol Sulfate [Proair Hfa] 2 puff IH QID PRN 03/21/15 Triamcinolone Acetonide [Kenalog 0.1%] 1 applic TP BID PRN 05/21/15 Potassium Chloride [K-Dur] 20 meq PO BID 05/28/17 Omeprazole [Prilosec] 20 mg PO QDAC 05/29/17 Apixaban [Eliquis] 5 mg PO BID 08/21/17 Digoxin [Lanoxin] 125 mcg PO EVERY OTHER DAY #1 tablet 08/24/17 Hydrocodone/Acetaminophen [Hydrocodone-Acetamin 7.5-325] 7.5 mg PO TID PRN 09/06 Insulin Glargine,Hum.rec.anlog [Lantus] 10 units SUBCUT BEDTIME 09/06/17 Mometasone/Formoterol [Dulera 200 Mcg/5 Mcg Inhaler] 2 inh INH BID 09/06/17 Metolazone [Zaroxolyn] 2.5 mg PO MOWEFR PRN #12 tablet 09/12/17 Amoxicillin [Amoxil] 500 mg PO TID 02/11/18 Bumetanide 1 mg PO DAILY 02/11/18 Collagenase Clostridium Hist [Santyl] 1 applic TP DAILY 02/11/18 Diltiazem HCl [Cardizem] 120 mg PO BID 02/11/18 Hydrocodone Bit/Acetaminophen [[place] 5-325] 1 each PO Q4-6H PRN 02/11/18 Zolpidem Tartrate [Ambien] 5 mg PO BEDTIME PRN 02/11/18 Disposition Discussed With: Patient, Family
== END 2018-02-11 14:36 | disposition home or self-care (01) ==
LOC: ED 13:02
DX: T81.89XA Other complications of procedures, not elsewhere classified, initial encounter (principal); R29.810 Facial weakness; R20.0 Anesthesia of skin; K08.409 Partial loss of teeth, unspecified cause, unspecified class; Z98.818 Other dental procedure status; E11.9 Type 2 diabetes mellitus without complications; E03.9 Hypothyroidism, unspecified; E78.5 Hyperlipidemia, unspecified; I25.10 Atherosclerotic heart disease of native coronary artery without angina pectoris; I10 Essential (primary) hypertension; Z79.899 Other long term (current) drug therapy
CPT/HCPCS: 36415; 80053; 82550; 84484; 85025; 93005; 93010; 99283

== ENCOUNTER 2018-05-04 12:30 | Outpatient (RCR) | payer OTHER ==
[2018-05-04 13:39] VITALS: BP 118/54
== END 2018-05-06 23:59 ==
LOC: PUL.REHAB 12:30
PROVIDERS: ATTEND Internal Medicine
DX: J44.9 Chronic obstructive pulmonary disease, unspecified (principal); J84.10 Pulmonary fibrosis, unspecified

== ENCOUNTER 2018-05-07 08:19 | Outpatient (RCR) ==
[2018-05-31 14:47] VITALS: BP 142/56
== END 2018-06-06 23:59 ==
LOC: PUL.REHAB 08:19
PROVIDERS: ATTEND Internal Medicine
DX: J44.9 Chronic obstructive pulmonary disease, unspecified (principal); J84.10 Pulmonary fibrosis, unspecified

== ENCOUNTER 2018-07-09 08:24 | Outpatient (RCR) ==
[2018-07-17 14:56] VITALS: BP 128/56
== END 2018-08-06 23:59 ==
LOC: PUL.REHAB 08:24
PROVIDERS: ATTEND Internal Medicine
DX: J44.9 Chronic obstructive pulmonary disease, unspecified (principal); J84.10 Pulmonary fibrosis, unspecified

== ENCOUNTER 2018-08-08 07:48 | Outpatient (RCR) ==
[2018-09-06 14:20] VITALS: BP 128/56
== END 2018-09-06 23:59 ==
LOC: PUL.REHAB 07:48
PROVIDERS: ATTEND Internal Medicine
DX: J44.9 Chronic obstructive pulmonary disease, unspecified (principal); J84.10 Pulmonary fibrosis, unspecified

== ENCOUNTER 2018-09-07 07:25 | Outpatient (RCR) ==
[2018-10-02 14:17] VITALS: BP 118/68
== END 2018-10-04 23:59 ==
LOC: PUL.REHAB 07:25
PROVIDERS: ATTEND Internal Medicine
DX: J44.9 Chronic obstructive pulmonary disease, unspecified (principal); J84.10 Pulmonary fibrosis, unspecified

== ENCOUNTER 2018-10-05 07:25 | Outpatient (RCR) ==
[2018-10-30 14:34] VITALS: BP 118/56
== END 2018-11-04 23:59 ==
LOC: PUL.REHAB 07:25
PROVIDERS: ATTEND Internal Medicine
DX: J44.9 Chronic obstructive pulmonary disease, unspecified (principal); J84.10 Pulmonary fibrosis, unspecified

== ENCOUNTER 2018-11-05 10:42 | Outpatient (RCR) | payer OTHER ==
[2018-11-13 14:32] VITALS: BP 136/58
== END 2018-11-13 14:30 | disposition home or self-care (01) ==
LOC: PUL.REHAB 10:42
PROVIDERS: ATTEND Internal Medicine
DX: J44.9 Chronic obstructive pulmonary disease, unspecified (principal); J84.10 Pulmonary fibrosis, unspecified

== ENCOUNTER 2018-11-22 13:05 | Outpatient (RCR) ==
[2013-01-17 20:59] VITALS: TEMP 97.5
== END 2018-12-04 23:59 ==
LOC: CAR.REHAB 13:05 → PUL.REHAB 13:05
PROVIDERS: ATTEND Internal Medicine
DX: J44.9 Chronic obstructive pulmonary disease, unspecified (principal)

== ENCOUNTER 2018-12-05 07:44 | Outpatient (RCR) ==
[2018-12-18 14:23] VITALS: BP 128/52
== END 2019-01-04 23:59 ==
LOC: PUL.REHAB 07:44
PROVIDERS: ATTEND Internal Medicine
DX: J44.9 Chronic obstructive pulmonary disease, unspecified (principal)

== ENCOUNTER 2018-12-19 22:25 | Emergency (ER) | payer OTHER ==
--- NOTE | 2018-12-20 00:46 | ED.PDOC ---
General ED Provider: Dr. ARTUR CHILDERS Chief Complaint: Fall Stated Complaint: Patient is an 83 year old male who accidentally fell on to his walking while walking out of the bathroom. He has sustained abrassions to the right hand and back and has a swelling on the right mid back. Denies hitting head and loosing conciousness. Time Seen by Physician: 00:45 Primary Care Provider: SPARKLE MART Nursing and Triage Documentation Reviewed and Agree: Yes Does patient meet sepsis criteria?: No System Inflammatory Response Syndrome: Not Applicable Sepsis Protocol: For patient's 13 years and over: Temp is 96.8 and below OR 101 and greater Pulse >90 BPM Resp >20/minute Acutely Altered Mental Status Are patient's symptoms suggestive of a new infection, such as: -Pneumonia -Skin, Soft Tissue -Endocarditis -UTI -Bone, Joint Infection -Implantable Device -Acute Abdominal Infection -Wound Infection -Meningitis -Blood Stream Catheter Infection -Unknown Trauma/Injury Complaint Exam - Truncal Trauma Complaint/Exam Location of Pain: Reports: Upper, Posterior, Chest Onset: 5 hours ago Symptoms Are: Still present Onset of Pain: Reports: Immediate Initial Severity: Severe Current Severity: Moderate Mechanism: Reports: Blunt trauma, Fall Aggravating: Reports: Movement Alleviating: Reports: Rest Associated Signs and Symptoms: Reports: Chest pain (Right back wall pain ) Related Surgical History: Reports: None Immobilization Removed Post Exam: No Vertebral Tenderness Present: No Vertebral Deformity Present: No Trachial Deviation Present: No JVD Present: No Crepitus Present: No Diminished Breath Sounds: No Reproducible Pain at: Right back Muffled Heart Sounds Present: No Paradoxical Chest Wall Movement Present: No Abdominal Guarding Present: No Abdominal Rigidity Present: No Referred Shoulder Pain (Kehr's Sign) Present: No Skin Findings: Present: Abrasion, Contusion Chest and Back Picture: 1 - 10 x 6 hematoma mildly tender 2 - 2 large Abrassions measuring 20 cm x 0.5 cm Differential Diagnoses: Chest Wall Contusion - Trauma Complaint/Exam Location of Pain or Injury: Reports: RUE Mechanism of Injury: Reports: Fall Onset/Duration: 5 hours Symptoms Are: Still present Timing of Treatment: Immediate Initial Severity: Moderate Current Severity: Mild Character: Reports: Dull Aggravating: Reports: Palpation Associated Signs and Symptoms: Reports: Bleeding, Bruising. Denies: LOC, Confusion, Memory loss, Lethargy, Vomiting, Swelling, Extremity disuse, Painful respiration, Hoarseness, Dysphagia, Hemoptysis, Significant blood loss Nexus Low Risk Criteria: No post-midline CS tender, No evidence of intoxicat., No Altered LOC, No focal neuro deficit, No distracting injuries Glascow Coma Scale (see protocol): 15 Skin Findings: Present: Tenderness, Abrasion (on the right hand ) Differential Diagnoses: Abrasion, Contusions, Hematoma, Sprain, Strain Review of Systems - Review Of Systems Constitutional: Reports: No symptoms Eyes: Reports: No symptoms Ears, Nose, Mouth, Throat: Reports: No symptoms Respiratory: Reports: No symptoms Cardiac: Reports: No symptoms GI: Reports: No symptoms : Reports: No symptoms Musculoskeletal: Reports: Back pain, Joint pain Skin: Reports: Bruising (on the back and right hand ) Neurological: Reports: Anxiety Endocrine: Reports: No symptoms Hematologic/Lymphatic: Reports: No symptoms All Other Systems: Reviewed and Negative Past Medical History - Past Medical History Previously Healthy: No Endocrine: Reports: DM 2, Hypothyroid, Dyslipidemia Cardiovascular: Reports: CAD, Hypertension, CHF, DVT Respiratory: Reports: 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 Denies: Appendectomy, Cholecystectomy, Tonsillectomy, Adenoidectomy, CABG, Stent - Family History Family History: Reports: Unknown - Social History Smoking Status: Never smoker Hx Substance Use: No Alcohol Screening: None - Immunizations Influenza Vaccine within 12 Months: No Pneumococcal Vaccine up to Date: No Physical Exam - Physical Exam Appearance: Ill-appearing Ill-appearing: Mild Pain Distress: Mild Eyes: ELIZA, EOMI, Conjunctiva clear Neck: Supple Respiratory: Airway patent, Breath sounds clear, Breath sounds equal, Respirations nonlabored Cardiovascular: RRR, Pulses normal, No rub, No murmur Musculoskeletal: Normal strength, ROM intact, No edema, No calf tenderness Skin: Warm, Dry Neurological: Sensation intact, Motor intact, Reflexes intact, Cranial nerves intact, Alert, Oriented Psychiatric: Anxious Interpretation - Radiology Interpretation Radiology Interpretation By: Radiologist Radiology Results: No acute changes Exam Interpreted: Other (Hip and chest x ray ) Procedures - Laceration/Wound Repair Rigth hand Wound Description: Skin tear Wound Length (cm): 3 Wound Width: 2 Wound Depth: 0.1 Wound Explored: Clean Wound Irrigated: No Wound Prep: Saline Wound Repaired With: Steri-strips Critical Care Note - Critical Care Note Total Time (mins): 0 Course - Course Vital Signs: Temp Pulse Resp BP Pulse Ox 12/19/18 23:30 103 H 16 123/87 100 12/19/18 23:15 112 H 16 118/83 98 12/19/18 22:30 97.2 F L 90 20 110/78 88 L Departure - Departure Time of Disposition: 00:49 Disposition: HOME SELF-CARE Discharge Problem: Abrasion of skin Multiple contusions of trunk Qualifiers: Encounter type: initial encounter Qualified Code(s): S20.20XA - Contusion of thorax, unspecified, initial encounter Instructions: Contusion in Adults (ED), Abrasion (ED) Condition: Stable Pt referred to PMD for follow-up: Yes IPMP verified?: No Additional Instructions: Hold your blood thinner until you see your co founder and president due to the Hematoma on the back. Follow up with PCP in the morning. Take Home pain medications as needed for severe pain. Allergies/Adverse Reactions: Allergies No Known Allergies Allergy (Verified 02/11/18 13:10) Home Medications: Ambulatory Orders Duloxetine HCl [Cymbalta] 30 mg PO DAILY 01/17/13 Levothyroxine Sodium [Synthroid] 125 mcg PO DAILY 01/17/13 Simvastatin 5 mg PO BEDTIME 01/17/13 Albuterol Sulfate [Proair Hfa] 2 puff IH QID PRN 03/21/15 Triamcinolone Acetonide [Kenalog 0.1%] 1 applic TP BID PRN 05/21/15 Potassium Chloride [K-Dur] 20 meq PO BID 05/28/17 Omeprazole [Prilosec] 20 mg PO QDAC 05/29/17 Apixaban [Eliquis] 5 mg PO BID 08/21/17 Digoxin [Lanoxin] 125 mcg PO EVERY OTHER DAY #1 tablet 08/24/17 Hydrocodone/Acetaminophen [Hydrocodone-Acetamin 7.5-325] 7.5 mg PO TID PRN 09/06 Insulin Glargine,Hum.rec.anlog [Lantus] 10 units SUBCUT BEDTIME 09/06/17 Mometasone/Formoterol [Dulera 200 Mcg/5 Mcg Inhaler] 2 inh INH BID 09/06/17 Metolazone [Zaroxolyn] 2.5 mg PO MOWEFR PRN #12 tablet 09/12/17 Amoxicillin [Amoxil] 500 mg PO TID 02/11/18 Bumetanide 1 mg PO DAILY 02/11/18 Collagenase Clostridium Hist [Santyl] 1 applic TP DAILY 02/11/18 Diltiazem HCl [Cardizem] 120 mg PO BID 02/11/18 Hydrocodone Bit/Acetaminophen [[place] 5-325] 1 each PO Q4-6H PRN 02/11/18 Zolpidem Tartrate [Ambien] 5 mg PO BEDTIME PRN 02/11/18 Disposition Discussed With: Patient, Family
[2018-12-20 01:12] VITALS: TEMP 97.2; BMI 23.4
[2018-12-20 02:54] VITALS: BP 123/87
== END 2018-12-20 01:00 | disposition home or self-care (01) ==
LOC: ED 12-20 00:42
DX: S60.511A Abrasion of right hand, initial encounter (principal); S20.411A Abrasion of right back wall of thorax, initial encounter; S20.20XA Contusion of thorax, unspecified, initial encounter; W19.XXXA Unspecified fall, initial encounter; E11.9 Type 2 diabetes mellitus without complications; N18.3 Chronic kidney disease, stage 3 (moderate); D63.1 Anemia in chronic kidney disease; J84.10 Pulmonary fibrosis, unspecified; J44.9 Chronic obstructive pulmonary disease, unspecified; I48.91 Unspecified atrial fibrillation; E78.5 Hyperlipidemia, unspecified; J96.90 Respiratory failure, unspecified, unspecified whether with hypoxia or hypercapnia
CPT/HCPCS: 36415; 80053; 85025; 99283

== ENCOUNTER 2018-12-20 12:27 | Outpatient (CLI) | payer OTHER ==
[2013-01-17 20:59] VITALS: TEMP 97.5
[2018-12-20 01:12] VITALS: BMI 23.4
== END 2018-12-20 12:28 | disposition home or self-care (01) ==
LOC: LAB 12:27
PROVIDERS: ATTEND Internal Medicine
DX: E11.9 Type 2 diabetes mellitus without complications (principal); N18.3 Chronic kidney disease, stage 3 (moderate); D63.1 Anemia in chronic kidney disease; J84.10 Pulmonary fibrosis, unspecified; J44.9 Chronic obstructive pulmonary disease, unspecified; I48.91 Unspecified atrial fibrillation; E78.5 Hyperlipidemia, unspecified; J96.90 Respiratory failure, unspecified, unspecified whether with hypoxia or hypercapnia
CPT/HCPCS: 36415; 80053; 85025

== ENCOUNTER 2018-12-21 10:38 | Outpatient (CLI) ==
[2013-01-17 20:59] VITALS: TEMP 97.5
[2018-12-20 01:12] VITALS: BMI 23.4
== END 2018-12-21 10:39 | disposition home or self-care (01) ==
LOC: LAB 10:38
PROVIDERS: ATTEND Internal Medicine
DX: E87.5 Hyperkalemia (principal)
CPT/HCPCS: 36415; 80053

== ENCOUNTER 2018-12-25 13:44 | Outpatient (CLI) ==
[2013-01-17 20:59] VITALS: TEMP 97.5
== END 2018-12-25 13:45 | disposition home or self-care (01) ==
LOC: LAB 13:44
PROVIDERS: ATTEND Internal Medicine
DX: E87.6 Hypokalemia (principal)
CPT/HCPCS: 36415; 80053

== ENCOUNTER 2019-03-07 07:33 | Outpatient (RCR) ==
[2019-04-04 14:51] VITALS: BP 122/54
== END 2019-04-06 23:59 ==
LOC: PUL.REHAB 07:33
PROVIDERS: ATTEND Internal Medicine
DX: J44.9 Chronic obstructive pulmonary disease, unspecified (principal)

== ENCOUNTER 2020-10-08 13:50 | Inpatient (IN) ==
[2020-10-08 14:45] VITALS: BMI 26.4
[2020-10-08] MEDS ORDERED: TYLENOL PO PRN (14:55)
[2020-10-08] MEDS ORDERED: NITROSTAT SL PRN (14:55)
[2020-10-08] MEDS ORDERED: VISTARIL INJ IM PRN (14:55)
[2020-10-08] MEDS ORDERED: ATROPINE SULFATE PFS IVP PRN (14:55)
[2020-10-08] MEDS ORDERED: LASIX IVP STA (15:00)
[2020-10-08 15:12] LABS: BASOPHILS % (AUTO) 0.5 % (0.0-3.0); EOSINOPHILS # (AUTO) 0.1 K/ul (0.0-0.7); EOSINOPHILS % (AUTO) 1.8 % (0.0-7.0); HEMOGLOBIN 13.6 g/dl (14.0-18.0); IMMATURE GRANULOCYTE % (AUTO) 0.3 % (0.0-5.0); LYMPHOCYTES # (AUTO) 0.7 K/uL (0.60-3.4); MEAN CORPUSCULAR HEMOGLOBIN 28.6 pg (27.0-31.0); MEAN CORPUSCULAR HGB CONC 32.4 (31.8-35.4); MEAN CORPUSCULAR VOLUME 88.2 fl (80.0-94.0); MONOCYTES # (AUTO) 0.8 K/uL (0.4-2.0); MONOCYTES % (AUTO) 12.6 (0-10); NEUTROPHILS # (AUTO) 4.6 K/ul (2.0-6.9); NEUTROPHILS % (AUTO) 73.8 % (42.2-75.2); PLATELET COUNT 146 10^3/uL (140-440); RDW COEFFICIENT OF VARIATION 16.3 % (11.6-14.8); RED BLOOD COUNT 4.76 10^6/ul (4.70-6.10); WHITE BLOOD COUNT 6.19 K/ul (4.2-10.2)
[2020-10-08 15:24] LABS: ALANINE AMINOTRANSFERASE 16.9 U/L (0-50); ALBUMIN 3.88 g/dL (3.5-5.0); ALKALINE PHOSPHATASE 95.9 U/L (56-119); ASPARTATE AMINO TRANSFERASE 42.7 U/L (17-59); BILIRUBIN,TOTAL 1.85 mg/dL (0.2-1.3); BLOOD UREA NITROGEN 32.1 mg/dL (9-20); CALCIUM 9.37 mg/dL (8.4-10.2); CHLORIDE 88.3 mmol/L (98-107); CREATINE KINASE 49.2 U/L (55-170); CREATININE 1.54 mg/dL (0.60-1.10); POTASSIUM 3.18 mmol/L (3.5-5.1); SODIUM 139.5 mmol/L (134.5-145); TOTAL PROTEIN 7.53 g/dL (6.3-8.2)
[2020-10-08] MEDS ORDERED: SOLU-MEDROL 125 MG IVP SCH (15:30)
[2020-10-08 15:36] LABS: TROPONIN I 0.083 ng/ml (0.0000-0.120)
[2020-10-08 15:39] LABS: CARBON DIOXIDE 40.9 mmol/L (22-30.0)
[2020-10-08 15:46] LABS: ABG PH 7.56 (7.35-7.45)
--- NOTE | 2020-10-08 15:51 | DI ---
EXAM: Chest two views HISTORY: Shortness of air COMPARISON: 08/24/2020 TECHNIQUE: Two views of the chest were performed FINDINGS: Heart is enlarged. Mediastinal contour unchanged. No visible pneumothorax. Bilateral in terstitial and alveolar opacity. Probable small bilateral pleural effusions. IMPRESSION: Cardiomegaly. Bilateral interstitial and alveolar opacity may represent edema and/or pn eumonia. Probable small bilateral pleural effusions.
[2020-10-08] MEDS: SOLU-CORTEF 250 MG IVP SCH ×2 (15:59→20:49)
[2020-10-08] MEDS ORDERED: NORCO 7.5-325 PO PRN (16:00)
[2020-10-08 16:34] LABS: BILIRUBIN,URINE Negative (NEGATIVE); CLARITY,URINE Clear (CLEAR); COLOR,URINE Yellow (YELLOW); GLUCOSE, URINE (UA) Negative (NEGATIVE); KETONES,URINE Negative (NEGATIVE); LEUKOCYTE ESTERASE ,URINE Negative (NEGATIVE); NITRITE,URINE Negative (NEGATIVE); PROTEIN,URINE 1+ (NEGATIVE); URINE, BLOOD Trace-intact (NEGATIVE)
[2020-10-08 16:37] LABS: SQUAMOUS EPITHELIAL CELL,UR NOT PRESENT (0-5); URINE WBC, MICROSCOPIC 0-2 (0-2)
[2020-10-08] MEDS: K-DUR PO SCH ×2 (16:41→20:52)
[2020-10-08] MEDS: COREG PO SCH (17:33)
[2020-10-08] MEDS: VENTOLIN HFA (PER PUFF-WITH SPACER) IH SCH (19:30)
[2020-10-08] MEDS: SYMBICORT 160-4.5 MCG INHALER IH SCH (20:37)
[2020-10-08] MEDS: CARDIZEM PO SCH (20:40)
[2020-10-08] MEDS: ZOCOR PO SCH (20:40)
[2020-10-08] MEDS: ELIQUIS PO SCH (20:40)
[2020-10-08] MEDS: HUMULIN R SUBCUT PRN (20:43)
[2020-10-08] MEDS: LANTUS SUBCUT SCH (20:44)
[2020-10-08] MEDS ORDERED: CARDIZEM PO SCH (21:00)
[2020-10-08] MEDS ORDERED: KENALOG 0.1% TP SCH (21:00)
[2020-10-08 23:29] LABS: TROPONIN I 0.072 ng/ml (0.0000-0.120)
[2020-10-09] MEDS: SOLU-CORTEF 250 MG IVP SCH ×3 (04:32→20:09)
[2020-10-09] MEDS: VENTOLIN HFA (PER PUFF-WITH SPACER) IH SCH ×3 (05:00→19:15)
[2020-10-09 05:27] LABS: HEMATOCRIT 42.2 % (42.0-52.0); HEMOGLOBIN 13.5 g/dl (14.0-18.0); IMMATURE GRANULOCYTE % (AUTO) 0.4 % (0.0-5.0); LYMPHOCYTES # (AUTO) 0.5 K/uL (0.60-3.4); LYMPHOCYTES % (AUTO) 10.4 (10.0-50.0); MEAN CORPUSCULAR HEMOGLOBIN 28.2 pg (27.0-31.0); MEAN CORPUSCULAR VOLUME 88.1 fl (80.0-94.0); MONOCYTES # (AUTO) 0.2 K/uL (0.4-2.0); MONOCYTES % (AUTO) 3.5 (0-10); NEUTROPHILS # (AUTO) 4.2 K/ul (2.0-6.9); NEUTROPHILS % (AUTO) 85.7 % (42.2-75.2); PLATELET COUNT 152 10^3/uL (140-440); RDW COEFFICIENT OF VARIATION 16.2 % (11.6-14.8); RED BLOOD COUNT 4.79 10^6/ul (4.70-6.10); WHITE BLOOD COUNT 4.91 K/ul (4.2-10.2)
[2020-10-09 05:40] LABS: ALANINE AMINOTRANSFERASE 16.1 U/L (0-50); ALBUMIN 3.9 g/dL (3.5-5.0); BILIRUBIN,TOTAL 1.93 mg/dL (0.2-1.3); BLOOD UREA NITROGEN 35.8 mg/dL (9-20); CALCIUM 9.32 mg/dL (8.4-10.2); CHLORIDE 86.6 mmol/L (98-107); CREATININE 1.49 mg/dL (0.60-1.10); POTASSIUM 2.88 mmol/L (3.5-5.1); SODIUM 137.6 mmol/L (134.5-145); TOTAL PROTEIN 7.51 g/dL (6.3-8.2)
[2020-10-09 05:47] LABS: CARBON DIOXIDE 39.6 mmol/L (22-30.0)
[2020-10-09] MEDS: SYNTHROID PO SCH ×2 (05:58)
[2020-10-09] MEDS: HUMULIN R SUBCUT PRN ×2 (05:59→12:07)
[2020-10-09] MEDS ORDERED: KENALOG 0.1% TP PRN ×3 (07:17→07:30)
[2020-10-09] MEDS ORDERED: ZINC SULFATE 220 MG PO SCH (09:00)
[2020-10-09] MEDS ORDERED: NON-FORMULARY MEDICATION (Levothyroxine [Synthroid] 125 MCG tablet) PO SCH (09:00)
[2020-10-09] MEDS: BUMEX PO SCH (09:11)
[2020-10-09] MEDS: ZINC-220 PO SCH (09:12)
[2020-10-09] MEDS: K-DUR PO SCH ×4 (09:12→17:23)
[2020-10-09] MEDS: PEPCID PO SCH (09:12)
[2020-10-09] MEDS: CARDIZEM PO SCH ×2 (09:13→20:23)
[2020-10-09] MEDS: VITAMIN D PO SCH (09:14)
[2020-10-09] MEDS: ELIQUIS PO SCH ×2 (09:14→20:25)
[2020-10-09] MEDS: JANUVIA PO SCH (09:14)
[2020-10-09] MEDS: COREG PO SCH ×2 (09:14→17:24)
[2020-10-09] MEDS: CYMBALTA PO SCH (09:14)
[2020-10-09] MEDS: SYMBICORT 160-4.5 MCG INHALER IH SCH ×2 (09:15→20:25)
--- NOTE | 2020-10-09 09:31 | PCM.PROG ---
Attending Provider: ATTENDING PROVIDER: Dr. SPARKLE OLIVIER This patient is seen with Cary Xavier, Nurse Practitioner. DATE OF SERVICE: 10/09/20 SUBJECTIVE: This 85 year old /WHITE M was hospitalized 10/08/20. The patient is resting comfortably. Shortness of breath has improved. The patient was able to sleep last night and did not wake up with any gasping. Leg edema has significantly improved this morning. Potassium is worse. REVIEW OF SYSTEMS: CONSTITUTIONAL: No night sweats. No fatigue, malaise, lethargy. No fever or chills. Weakness. HEENT: Eyes: No visual changes. No eye pain. No eye discharge. ENT: No runny nose. No epistaxis. No sinus pain. No odynophagia. No congestion. RESPIRATORY: No cough, no congestion. No hemoptysis. Shortness of breath. CARDIOVASCULAR: No angina symptoms. No CHF symptoms. No atypical chest pain for CAD. No palpitations. No orthopnea.. GASTROINTESTINAL: No abdominal pain. No nausea or vomiting. No diarrhea or constipation. No hematemesis. No hematochezia. GENITOURINARY: No urgency. No frequency. No dysuria. No hematuria. No obstructive symptoms. No discharge. No pain. No significant abnormal bleeding. MUSCULOSKELETAL: No musculoskeletal pain; no joint swelling. Leg edema. NEUROLOGICAL: Awake, alert, oriented to time, place and person. No headache. No neck pain. No syncope. No seizures. No dizziness. PSYCHIATRIC: Not anxious. No depression. No suicidal thoughts. No homicidal thoughts. SKIN: No rash. No lesions. No wounds. ENDOCRINE: No unexplained weight loss. No weight gain. HEMATOLOGIC/LYMPHATIC: No anemia. No purpura. No petechiae. No prolonged or excessive bleeding. No palpable lymph nodes. PHYSICAL EXAMINATION: GENERAL: The patient is awake, alert and oriented, sitting in bed in no distress. VITAL SIGNS: Temperature 98.1 F, Pulse 99, Respiratory Rate 18, BP 110/74, Pulse Ox 91% HEENT: Head normocephalic, atraumatic. Eyes: Extraocular muscles are intact. Pupils are equal, round and reactive to light and accommodation. Ears: No lesions. Nose appeared normal. Throat: No exudate or erythema. NECK: Supple. No JVD, no carotid bruit. No lymphadenopathy or thyromegaly. LUNGS:Diminished breath sounds. Clear to auscultation. Percussion note normal. Chest symmetrical. HEART: S1, S2, no S3. No murmurs. No cyanosis or clubbing. No ascites. Pulses: Dorsalis pedis and posterior tibial pulses +1 to +2 both sides. ABDOMEN: Soft. Non-tender. Bowel sounds active. No CVA tenderness. No mass felt. EXTREMITIES: Trace bilateral leg edema. Full range of motion of all extremities, equal. NEUROLOGIC: No focal deficit. Cranial nerves II through XII are grossly intact. No headache. No double vision. SKIN: Not dry. Intact. Turgor-normal. LYMPHATIC: No palpable lymph nodes/no lymphedema. MUSCULOSKELETAL: Normal joints with no swelling. Muscle tone is normal. LAB REVIEW: 10/09/20 04:45 10/09/20 04:45 10/09/20 04:45: Sodium 137.6, Potassium 2.88 L, Chloride 86.6 L, Carbon Dioxide 39.6 H, Anion Gap 14.28, BUN 35.8 H, Creatinine 1.49 H, Estimated GFR (MDRD) 45.00, BUN/Creatinine Ratio 24.02, Glucose 195.0 H D, Calcium 9.32, Total Bilirubin 1.93 H, AST 38.0, ALT 16.1, Alkaline Phosphatase 84.0, Total Protein 7.51, Albumin 3.90, Globulin 3.61, Albumin/Globulin Ratio 1.08 10/09/20 04:45: WBC 4.91, RBC 4.79, Hgb 13.5 L, Hct 42.2, MCV 88.1, MCH 28.2, MCHC 32.0, RDW Coeff of Marek 16.2 H, Plt Count 152, Immature Gran % (Auto) 0.4, Neut % (Auto) 85.7 H, Lymph % (Auto) 10.4, [place] % (Auto) 3.5, Eos % (Auto) 0.0, Baso % (Auto) 0.0, Neut # (Auto) 4.2, Lymph # (Auto) 0.5 L, [place] # (Auto) 0.2 L, Eos # (Auto) 0.0, Baso # (Auto) 0.0, Immature Gran # (Auto) 0.0 10/08/20 23:01: Total Creatine Kinase 60.0, Troponin I 0.072 10/08/20 16:30: Urine Color Yellow, Urine Clarity Clear, Urine pH 7.0, Ur Specific [place] 1.020, Urine Protein 1+ H, Urine Glucose (UA) Negative, Urine Ketones Negative, Urine Blood Trace-intact H, Urine Nitrite Negative, Urine Bilirubin Negative, Urine Urobilinogen 1.0 H, Ur Leukocyte Esterase Negative, Urine Microscopic RBC 2-5, Urine Microscopic WBC 0-2, Ur Squamous Epith Cells Not present 10/08/20 15:35: Puncture Site Rbrach, Base Excess 22.6 H, O2 Saturation 96.1, ABG pH 7.56 H*, ABG pCO2 50.0 H, ABG pO2 71.0 L, ABG HCO3 44.8 H, ABG Total CO2 46.3 H, Hemoglobin 0.3, Oxyhemoglobin 93.3 L, Carboxyhemoglobin 2.2 H, Total Hemoglobin 13.8, O2 Delivery Device Cannula, Oxygen Liter Flow 3.00 10/08/20 15:10: Sodium 139.5, Potassium 3.18 L, Chloride 88.3 L, Carbon Dioxide 40.9 H*, Anion Gap 13.48, BUN 32.1 H, Creatinine 1.54 H, Estimated GFR (MDRD) 43.00, BUN/Creatinine Ratio 20.84, Glucose 125.0 H, Calcium 9.37, Total Bilirubin 1.85 H, AST 42.7, ALT 16.9, Alkaline Phosphatase 95.9, Total Creatine Kinase 49.2 L, Troponin I 0.083, NT-Pro-B Natriuret Pep 5650.000 H, Total Protein 7.53, Albumin 3.88, Globulin 3.65, Albumin/Globulin Ratio 1.06 10/08/20 15:10: WBC 6.19, RBC 4.76, Hgb 13.6 L, Hct 42.0, MCV 88.2, MCH 28.6, MCHC 32.4, RDW Coeff of Marek 16.3 H, Plt Count 146, Immature Gran % (Auto) 0.3, Neut % (Auto) 73.8, Lymph % (Auto) 11.0, [place] % (Auto) 12.6 H, Eos % (Auto) 1.8, Baso % (Auto) 0.5, Neut # (Auto) 4.6, Lymph # (Auto) 0.7, [place] # (Auto) 0.8, Eos # (Auto) 0.1, Baso # (Auto) 0.0, Immature Gran # (Auto) 0.0 ASSESSMENT: Please see below. 1. CHF 2. Biventricular failure 3. COPD 4. Hypokalemia 5. Atrial fibrillation 6. Diabetes Mellitus type 2 7. Chronic kidney disease stage 3 PLAN: 1. Increase Potassium to 40mg TID 2. Repeat ABG on 2 liters. 3. Discontinue Potassium 20meq 4. Continue IV steroids 5. Keep legs elevated 6. Echo Plan and coordination of the patient's care discussed in the presence of Case Emmett hollingsworth and nurse. SCRIBED BY: BRYAN BRANHAM Reel System Operator scribed while in presence of service performed by Dr. Olivier/Cary Xavier APRN on 10/09/20 ([id number])
--- NOTE | 2020-10-09 09:51 | HP ---
DATE OF SERVICE: 10/08/20 REASON FOR HOSPITALIZATION/HISTORY OF PRESENT ILLNESS: 85-year-old white male who presents with complaint that he can't sleep at night, shortness of breath, waking up gasping and shortness of breath. PAST MEDICAL HISTORY: Diabetes mellitus type 2 Severe COPD/recurrent pneumonia Lumbar radiculopathy Chronic bronchitis CKD3 Hypertension/LVH Hypothyroidism Dyslipidemia Left sciatica Osteoarthritis/DJD spine Dementia Atrial fibrillation on Eliquis Bilateral PAD, Dr. Berg Chronic respiratory failure, COPD Hypokalemia B12 deficiency PAST SURGICAL HISTORY: Hernia times three Bilateral knees Left foot Chest tube Eye surgery REVIEW OF SYSTEMS: CONSTITUTIONAL: Fatigue. No fever. HEENT: No sinus drainage, no sore throat. RESPIRATORY: No cough, no congestion. CARDIOVASCULAR: Positive for CHF symptoms and shortness of breath. No atypical chest pain for coronary artery disease. No angina or palpitations. GASTROINTESTINAL: No melena or abdominal pain. No GERD. GENITOURINARY: No hematuria, no prostatism, no polyuria. SIGNAL TOWER DIRECTOR: Wheelchair. No blackout, no dizziness, no headache, no double vision. MUSCULOSKELETAL: No osteoarthritis pain, no joint swelling. ENDOCRINE: No weight loss, no weight gain. SKIN: Not dry, no rash. PSYCHIATRIC: Not anxious, no depression, no suicidal thoughts, no homicidal thoughts. SOCIAL HISTORY: . Nonsmoker. No alcohol use. Retired. Two daughters. FAMILY HISTORY: Father is . Mother is . Brothers (2) . Sisters (3) two , one living. MEDICATIONS: Eliquis 5 mg b.i.d. Bumetanide 2 mg g.d Diltiazem 90 mg b.i.d. Cymbalta 30 mg q.d Lidex 0.005% p.r.n. [place] 7.5/325 mg q.6hr p.r.n. Lantus 10-12 units h.s. Synthroid 125 mg q.d Zaroxolyn 2.5 mg p.r.n. Metro Cream 0.75% b.i.d. 02 K 20 mEq b.i.d. Simvastatin 5 mg h.s. Kenalog 0.1% b.i.d. Ambien 5 mg 5/weeks Zinc daily Vitamin D3 Pepcid 20 daily Coreg 3.125 mg b.i.d. Januvia 50 mg daily ALLERGIES: NKDA, Fe gives constipation. PHYSICAL EXAMINATION: V/S: Pulse 91, BP 120/66, temperature 97.7, 02 sat 88%. states 02 sat 90- 91 at home. 02 at 3L/NC. GENERAL APPEARANCE: Oriented times three. Pale. HEENT: Normal. NECK: No JVP, no bruits. RESPIRATORY: Severely decreased breath sounds. CARDIOVASCULAR: Irregular. S1, S2, no S3, no murmur. No cyanosis, clubbing. No ascites. GI/ABDOMEN: No tenderness. Bowel sounds are active. EXTREMITIES: +2 bilateral lower extremity edema, pulses +1, equal. SIGNAL TOWER DIRECTOR: Deep tendon reflexes, sensory, motor and gait all normal. RECTAL/PROSTATE: Prostate 04/24 (0.6). 10/18 Dr. Maxwell. Refulsed colocare. ASSESSMENT: 1. ACUTE CHF 2. BIVENTRICULAR FAILURE 3. HYPOKALEMIA 4. SHORTNESS OF BREATH 5. DIABETES MELLITUS TYPE 2 6. SEVERE COPD/RECURRENT PNEUMONIA 7. LUMBAR RADICULOPATHY 8. CHRONIC BRONCHITIS 9. CKD 3 10. HYPERTENSION, LVH 11. HYPOTHYROIDISM 12. DYSLIPIDEMIA 13. LEFT SCIATICA 14. OSTEOARTHRITIS/DJD SPINE 15. DEMENTIA 16. ATRIAL FIBRILLATION, ON ELIQUIS 17. BILATERAL PAD, DR. BERG 18. CHRONIC RESPIRATORY FAILURE/COPD 19. HYPOKALEMIA 20. B12 DEFICIENCY PLAN: 1. Admit 2. Will do respiratory panel, PCR before. 3. Routine telemetry orders. 4. CBC, CMP now and daily. 5. Lasix 40 mg IV now. 6. Chest x-ray. 7. Urinalysis. 8. Elevate legs. 9. ABGs on 10. Solu-Cortef 125 mg IV q.8hr. 11. K+ 20 Stefanie q.i.d. p.o. 12. Regular diet. 13. Dr. Olivier's sliding scale for insulin. 14. Symbicort 160/4.5 two puff b.i.d. 15. Albuterol inhaler two puffs t.i.d. GERRI 16. Pro-BNP TIME SPENT: More than 70 minutes. MTDD
[2020-10-09 10:30] LABS: ABG PH 7.53 (7.35-7.45)
--- NOTE | 2020-10-09 13:04 | PN ---
DATE OF SERVICE: 10/09/2020 SUBJECTIVE: The patient was seen and examined with the Nurse Practitioner. The patient's condition has improved. The edema is much less and breathing is much better. Saturation is more than 90% with 2 liters. Cardiovascular status is stable with no suggestion of CHF or coronary insufficiency. TIME SPENT: More than 30 minutes. Plan and coordination of the patient's care discussed in the presence of nurse. MATTHEW
--- NOTE | 2020-10-09 13:30 | PN ---
DATE OF SERVICE: 10/08/2020 SUBJECTIVE: The patient was seen and examined in the office in the presence of the . The patient has congestive heart failure mainly biventricular right sided failure, dominance. The patient has leg edema +2 pitting. Decreased breath sounds bilaterally on auscultation. The patient is more or less in the wheelchair. Recently he was hospitalized at [facility] from here. The patient's blood gasses showed compensated respiratory failure. We will decrease the oxygen to 2 liters. His pO2 has gone up to 72 with pCO2 of 50 with elevated pH. Besides chronic respiratory failure and hypoxemia and CHF has decreased endurance. PLAN: 1. Elevate the legs 2. IV Lasix 40mg 3. Continue Bumax 4. Continue Zaroxcyline 5. IV Solu-Cortef 6. Telemetry. The patient's History and Physical was formulated in my presence by Nurse Practitioner. TIME SPENT: More than 30 minutes. Plan and coordination of the patient's care discussed in the presence of nurse. MATTHEW
[2020-10-09] MEDS: ZOCOR PO SCH (20:24)
[2020-10-09] MEDS: LANTUS SUBCUT SCH (20:28)
[2020-10-10] MEDS: VENTOLIN HFA (PER PUFF-WITH SPACER) IH SCH (04:55)
[2020-10-10] MEDS: SOLU-CORTEF 250 MG IVP SCH ×2 (05:01→12:47)
[2020-10-10 05:13] VITALS: BP 115/79; TEMP 98
[2020-10-10 05:15] LABS: BASOPHILS % (AUTO) 0.1 % (0.0-3.0); HEMATOCRIT 39.7 % (42.0-52.0); HEMOGLOBIN 12.9 g/dl (14.0-18.0); IMMATURE GRANULOCYTE % (AUTO) 0.4 % (0.0-5.0); LYMPHOCYTES # (AUTO) 0.5 K/uL (0.60-3.4); MEAN CORPUSCULAR HEMOGLOBIN 28.6 pg (27.0-31.0); MEAN CORPUSCULAR HGB CONC 32.5 (31.8-35.4); MONOCYTES # (AUTO) 0.4 K/uL (0.4-2.0); NEUTROPHILS # (AUTO) 9.1 K/ul (2.0-6.9); NEUTROPHILS % (AUTO) 90.5 % (42.2-75.2); PLATELET COUNT 154 10^3/uL (140-440); RDW COEFFICIENT OF VARIATION 16.4 % (11.6-14.8); RED BLOOD COUNT 4.51 10^6/ul (4.70-6.10); WHITE BLOOD COUNT 10.05 K/ul (4.2-10.2)
[2020-10-10 05:30] LABS: ALANINE AMINOTRANSFERASE 15.9 U/L (0-50); ALBUMIN 3.69 g/dL (3.5-5.0); ALKALINE PHOSPHATASE 77.8 U/L (56-119); ASPARTATE AMINO TRANSFERASE 32.9 U/L (17-59); BILIRUBIN,TOTAL 1.44 mg/dL (0.2-1.3); BLOOD UREA NITROGEN 49.9 mg/dL (9-20); CALCIUM 9.12 mg/dL (8.4-10.2); CARBON DIOXIDE 39.5 mmol/L (22-30.0); CHLORIDE 88.6 mmol/L (98-107); GLUCOSE 225.9 mg/dL (74-106); POTASSIUM 3.36 mmol/L (3.5-5.1); SODIUM 135.7 mmol/L (134.5-145); TOTAL PROTEIN 7.04 g/dL (6.3-8.2)
[2020-10-10 05:40] LABS: CREATININE 2.02 mg/dL (0.60-1.10)
[2020-10-10] MEDS: SYNTHROID PO SCH ×2 (06:03)
[2020-10-10] MEDS: PEPCID PO SCH (06:03)
[2020-10-10] MEDS: BUMEX PO SCH (06:03)
[2020-10-10] MEDS: HUMULIN R SUBCUT PRN ×2 (06:19→11:58)
[2020-10-10] MEDS ORDERED: ZAROXOLYN PO SCH (06:30)
[2020-10-10] MEDS: JANUVIA PO SCH (08:45)
[2020-10-10] MEDS: CARDIZEM PO SCH (08:45)
[2020-10-10] MEDS: ZINC-220 PO SCH (08:45)
[2020-10-10] MEDS: K-DUR PO SCH ×2 (08:45→11:57)
[2020-10-10] MEDS: CYMBALTA PO SCH (08:45)
[2020-10-10] MEDS: ELIQUIS PO SCH (08:46)
[2020-10-10] MEDS: SYMBICORT 160-4.5 MCG INHALER IH SCH (08:46)
[2020-10-10] MEDS: COREG PO SCH (08:46)
[2020-10-10] MEDS: VITAMIN D PO SCH (08:46)
--- NOTE | 2020-10-12 14:53 | DS ---
DATE OF SERVICE: 10/10/20 FINAL DIAGNOSIS: 1. 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 SEVERE CHRONIC LUNG DISEASE, END-STAGE ON OXYGEN REQUIRING INTERMITTENT STEROIDS 3. HYPOKALEMIA 4. CHRONIC BRONCHITIS 5. CHRONIC KIDNEY DISEASE, STAGE 3/4 6. LUMBAR RADICULOPATHY 7. ATRIAL FIBRILLATION, ON ELIQUIS 8. DIABETES MELLITUS, TYPE 2 9. HYPERTENSION 10. DYSLIPIDEMIA 11. HYPOTHYROIDISM 12. LEFT SCIATICA 13. DEMENTIA 14. BILATERAL PERIPHERAL ARTERIAL DISEASE, DR. BERG FOLLOWS 15. B12 DEFICIENCY 16. NEUROPATHY, COMBINATION OF DIABETIC AND RADICULOPATHY 17. 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 BILATERAL KNEE REPLACEMENT 19. HISTORY OF RECURRENT PNEUMONIA 20. LUMBAR RADICULOPATHY 21. HISTORY OF HYPOKALEMIA DISCHARGE INSTRUCTIONS: 1. Advised to elevate the legs. 2. Advised 2L of oxygen as long as he can during the day and nighttime. 3. He is to followup in the office in [address] Olivier/Cary Xavier APRN. MEDICATIONS AT DISCHARGE: Advised to continue Cymbalta Levothyroxine Simvastatin Potassium dose has been raised to 20 mEq t.i.d. Continue Eliquis Lantus Hydrocodone Bumex Diltiazem Metolazone Betalol Cholecalciferol Famotidine MetroCream Januvia Kenalog cream Zinc Sulfate as before NEW PRESCRIPTIONS: Prednisone 10 mg two tablets p.o. daily for five days, after that one tablet daily for 7 days DIET INSTRUCTIONS: As tolerates. ACTIVITY: As tolerates. SMOKING: N/A HOSPITAL COURSE: 85-year-old white male hospitalized with generalized anasarca type of status with bilateral leg edema, 2+ to 3+ pitting, shortness of breath. The patient was treated with IV Lasix, leg elevation and steroids, potassium supplements were given because of hypokalemia. The patient's condition improved within two days. He lost most of his fluid retention that he had. He was breathing a lot better. He felt overall a lot better. Discharge home in stable condition as an outpatient. The patient's kidney function, creatinine 2, BUN 49. He deteriorated some from aggressive diuretic therapy a couple of days, chronic kidney disease Stage 4. The patient was hyperglycemic from steroid use. He was advised to continue the same medication for his diabetes for now. Januvia dose will be prescribed 50 mg because of kidney disease. The patient is a full code. RV cavity is enlarged. LA cavity is markedly enlarged. Valvular structures are normal. The patient had an echocardiogram done which showed LVH with hypokinetic septum, ejection fraction 45%. TIME SPENT: More than 60 minutes. MTDD
--- NOTE | 2020-10-13 09:51 | PN ---
DATE OF SERVICE: 10/10/20 SUBJECTIVE: 85-year-old white male hospitalized with respiratory failure with evidence of CHF and generalized swelling with leg edema, +2 pitting. Short of breath on minimal exertion. The patient was treated with IV Lasix. His legs were elevated. He was given IV Solu-Cortef q.6hr along with oxygen supplements. The patient's condition improved remarkably in two days. The patient was feeling a lot better. He practically had trace pitting edema alot better. His oxygen saturation improved 2L. It was more than 98%. PHYSICAL EXAMINATION: GENERAL: The patient is oriented to time, place and person. VITAL SIGNS: Temperature 98, pulse 82, respiratory rate 18, blood pressure 115/79, pulse ox 98% on 2L. HEENT: Head normocephalic, atraumatic. Eyes: Extraocular muscles are intact. Pupils are equal, round and reactive to light and accommodation. Ears: No lesions. Nose appeared normal. Throat: No exudate or erythema. NECK: Supple. No JVD, no carotid bruit. No lymphadenopathy or thyromegaly. LUNGS: Decreased breath sounds. Good air entry. Clear to auscultation. Percussion note normal. Chest symmetrical. HEART: S1, S2, no S3. No murmurs. No cyanosis or clubbing. No ascites. Pulses: Dorsalis pedis and posterior tibial pulses +1 to +2 bilaterally. ABDOMEN: Soft. No ascites. Nontender. Bowel sounds active. No CVA tenderness. No mass felt. EXTREMITIES: Trace to +1 pitting edema. Full range of motion of all extremities, equal. NEUROLOGIC: No focal deficit. Cranial nerves II through XII are grossly intact. No headache. No double vision. SKIN: Not dry. Intact. Turgor - normal. LYMPHATIC: No palpable lymph nodes/no lymphedema. MUSCULOSKELETAL: Normal joints with no swelling. Muscle tone is normal. LABS: Hemoglobin 12.9, hematocrit 30, WBC 10,000, normal differential. Creatinine 2, BUN 49, potassium 3.3. ASSESSMENT: 1. Respiratory failure seems to be under control, which is chronic on oxygen 2L. Strongly advised to wear oxygen all the time. 2. Exacerbation of COPD treated with steroids has responded well. 3. Bilateral ventricular failure mainly right ventricular failure with fluid overload which has responded well to IV Lasix. PLAN: 1. Will discharge the patient home with K-tab dose increased to 20 t.i.d. because of hypokalemia. 2. Prednisone 10 mg p.o. two tablets daily for 5 days and after that one a day for 7 days. 3. Elevate the legs. 4. The patient is to continue the rest of the medications as before. CONDITION: Stable. TIME SPENT: More than 30 minutes. Plan and coordination of the patient's care discussed in the presence of nurse. MATTHEW
--- NOTE | 2020-10-13 09:53 | PN ---
BILLING 10/08/20 ADMISSION DAY LEVEL 5 10/09/20 INTERMEDIATE 10/10/20 FINAL DAY "D" IN DISCHARGE MATTHEW
--- NOTE | 2020-10-13 09:53 | ECHO2D ---
Date of Exam: 10/10/2020 Ordering Physician: DR. SPARKLE MART Room #: 104 Reason for Echo: CHF, SOB M-Mode Normal Adult Results LV Dimensions Normal Adult Results AoV Opening excursions >1.6 >1.6 LVEDD-base- 3.5-5.8 4.3 Ao root dimensions 2.0-3.7 3.4 LVESD-base- 3.1-4.6 L. Atrium dimensions 1.9-3.8 5.9 Post. Wall thickness 0.8-1.1 1.2 IV septum (thickness) 0.7-1.2 1.4 Post. Wall excursion 0.72-1.3 NORMAL Septal motion 0.4 Systolic motion R. Ventricular cavity 1.5-2.0 5.0 LVEF 60% 45-50% Paradoxical septal wall motion NORMAL 2-D : 2-D M Mode Echocardiogram was performed using apical four chamber and left parasternal long and short axis views. Mitral, tricuspid and aortic valves appear to be normal. Contractility of the left ventricle seems to be normal, so is the cavity size. LEFT ATRIAL AND RIGHT VENTRICLE ENLARGED. Aortic root appears to be normal. There is no pericardial effusion. There is no thrombus noted in the left ventricle or left atrial cavity. No mitral valve prolapse noted. HYPOKINETIC SEPTUM M-MODE: MV: NORMAL AV: NORMAL TV: NORMAL PV: CHAMBER SIZE: ENLARGED LEFT ATRIAL AND RIGHT VENTRICLE CAVITIES WALL MOTION: HYPOKINETIC SEPTUM PERICARDIUM: NORMAL INTERPRETATION: 1. LEFT VENTRICLE HYPERTROPHY WITH ENLARGED LEFT ATRIAL CAVITY 2. HYPOKINETIC SEPTUM 3. ENLARGED RIGHT VENTRICLE CAVITY 4. NORMAL VALVES MTDD
== END 2020-10-10 13:00 | disposition home or self-care (01) | DRG 189 ==
LOC: MEDSURG A 13:50
PROVIDERS: ADMIT Internal Medicine; ATTEND Internal Medicine
DX: E03.9 Hypothyroidism, unspecified; F03.90 Unspecified dementia, unspecified severity, without behavioral disturbance, psychotic disturbance, mood disturbance, and anxiety; N18.30 Chronic kidney disease, stage 3 unspecified; E11.9 Type 2 diabetes mellitus without complications; Z79.01 Long term (current) use of anticoagulants; J42 Unspecified chronic bronchitis; I48.91 Unspecified atrial fibrillation; M54.42 Lumbago with sciatica, left side; M54.16 Radiculopathy, lumbar region; I10 Essential (primary) hypertension; J44.1 Chronic obstructive pulmonary disease with (acute) exacerbation; E53.8 Deficiency of other specified B group vitamins; J96.10 Chronic respiratory failure, unspecified whether with hypoxia or hypercapnia; E87.6 Hypokalemia; E78.5 Hyperlipidemia, unspecified; Z99.81 Dependence on supplemental oxygen

== ENCOUNTER 2020-11-10 14:58 | Inpatient (IN) ==
[2020-11-10 15:06] VITALS: BMI 27.8
[2020-11-10 15:31] LABS: ABG PH 7.48 (7.35-7.45)
--- NOTE | 2020-11-10 15:36 | ED.PDOC ---
General ED Provider: Dr. 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 Time Seen by Provider: 11/10/20 15:20 Mode of Arrival: Wheelchair Information Source: Patient and Family Exam Limitations: No limitations Primary Care Provider: SPARKLE MART Nursing and Triage Documentation Reviewed and Agree: Yes Does patient meet sepsis criteria?: No System Inflammatory Response Syndrome: Not Applicable Sepsis Protocol: For patient's 13 years and over: Temp is 96.8 and below OR 101 and greater Pulse >90 BPM Resp >20/minute Acutely Altered Mental Status Are patient's symptoms suggestive of a new infection, such as: -Pneumonia -Skin, Soft Tissue -Endocarditis -UTI -Bone, Joint Infection -Implantable Device -Acute Abdominal Infection -Wound Infection -Meningitis -Blood Stream Catheter Infection -Unknown Review of Systems Review Of Systems Constitutional: Reports Malaise, Weakness and Loss of appetite Eyes: Reports No symptoms Ears, Nose, Mouth, Throat: Reports No symptoms Respiratory: Reports Short of air Cardiac: Reports Edema, Irregular heart rate and Palpitations GI: Reports No symptoms : Reports No symptoms Musculoskeletal: Reports No symptoms Skin: Reports No symptoms Neurological: Reports No symptoms Endocrine: Reports No symptoms Hematologic/Lymphatic: Reports No symptoms All Other Systems: Reviewed and Negative [facility] Medical History A-fib Brain bleed Chronic bronchitis with COPD (chronic obstructive pulmonary disease) Chronic kidney disease (CKD) COPD (chronic obstructive pulmonary disease) Dementia Diabetes Dyslipidemia Hypertension Hypokalemia Hypothyroid Lumbar radiculopathy Osteoarthritis Peripheral vascular disease Sciatica Family History FATHER Heart attack Mother Diabetes Social History Smoking and tobacco status: Never smoker History of recent travel: No Surgical History H/O hernia repair Status post left foot surgery Physical Exam Physical Exam Appearance: Reports Ill-appearing, No pain distress and Obese Ill-appearing: Mild Pain Distress: Mild Eyes: Reports ELIZA, EOMI and Conjunctiva clear ENT: Reports Ears normal, Nose normal and Oropharynx normal Neck: Supple Respiratory: Reports Airway patent, Breath sounds diminished and Crackles Cardiovascular: Reports Pulses normal and Irregular rhythm GI/: Reports Soft, Nontender and No Organomegaly Musculoskeletal: Reports Normal strength, ROM intact and Edema (Bilat Legs to the ankles) Skin: Reports Warm and Dry Neurological: Reports Sensation intact, Motor intact, Cranial nerves intact, Alert and Oriented Psychiatric: Reports Affect appropriate and Mood appropriate Interpretation Radiology Interpretation Exam Interpreted: Portable CXR (COPD) EKG Interpretation Time of EKG #1: 15:18 Ectopy: PVCs Interpretation: afib w RVR/poss old inferior infarct Physician Notification Case Discussed Physician Notified: [id number]; admit Time of Notification: 17:40 Critical Care Note Critical Care Note Total Critical Care Time (mins): 30 Comments: Monitoring Status and Vital signs Course Course Hematology/Chemistry: 11/10/20 15:20 11/10/20 15:20 Orders, Labs, Meds: Lab Review 11/10/20 11/10/20 11/10/20 15:20 15:20 15:20 WBC 6.69 RBC 4.91 Hgb 13.6 L Hct 43.6 MCV 88.8 MCH 27.7 MCHC 31.2 L RDW Coeff of Marek 17.4 H Plt Count 146 Immature Gran % (Auto) 0.1 Neut % (Auto) 77.4 H Lymph % (Auto) 10.8 [place] % (Auto) 9.9 Eos % (Auto) 1.5 Baso % (Auto) 0.3 Neut # (Auto) 5.2 Lymph # (Auto) 0.7 [place] # (Auto) 0.7 Eos # (Auto) 0.1 Baso # (Auto) 0.0 Immature Gran # (Auto) 0.0 PT 12.2 H INR 1.15 APTT 26.8 Puncture Site Base Excess O2 Saturation ABG pH ABG pCO2 ABG pO2 ABG HCO3 ABG Total CO2 Storm Test Hemoglobin Oxyhemoglobin Carboxyhemoglobin Total Hemoglobin O2 Delivery Device Oxygen Liter Flow Sodium 139.0 Potassium 3.46 L Chloride 95.9 L Carbon Dioxide 35.6 H Anion Gap 10.96 BUN 25.8 H Creatinine 1.27 H Estimated GFR (MDRD) 54.00 BUN/Creatinine Ratio 20.31 Glucose 186.8 H Uric Acid 5.97 Calcium 8.50 Magnesium 2.00 Total Bilirubin 1.82 H AST 36.8 ALT 20.9 Alkaline Phosphatase 108.6 Troponin I 0.047 NT-Pro-B Natriuret Pep 5740.000 H Total Protein 7.26 Albumin 3.80 Globulin 3.46 Albumin/Globulin Ratio 1.09 Urine Color Urine Clarity Urine pH Ur Specific [place] Urine Protein Urine Glucose (UA) Urine Ketones Urine Blood Urine Nitrite Urine Bilirubin Urine Urobilinogen Ur Leukocyte Esterase Ur Squamous Epith Cells Adenovirus (PCR) B. pertussis DNA (PCR) B.parapertussis DNA PCR C. pneumoniae DNA (PCR) Coronavirus OC43 (PCR) Coronavirus HKU1 (PCR) Coronavirus 229E (PCR) Coronavirus NL63 (PCR) Human Metapneumovir PCR Influenza Type A (PCR) Influenza B (RT-PCR) M. pneumoniae (PCR) Parainfluenza 1 (PCR) Parainfluenza 2 (PCR) Parainfluenza 3 (PCR) Parainfluenza 4 (PCR) RSV (PCR) Entero/Rhino (PCR) SARS-CoV-2 (PCR) 11/10/20 11/10/20 11/10/20 15:20 15:29 17:10 WBC RBC Hgb Hct MCV MCH MCHC RDW Coeff of Marek Plt Count Immature Gran % (Auto) Neut % (Auto) Lymph % (Auto) [place] % (Auto) Eos % (Auto) Baso % (Auto) Neut # (Auto) Lymph # (Auto) [place] # (Auto) Eos # (Auto) Baso # (Auto) Immature Gran # (Auto) PT INR APTT Puncture Site Rrad Base Excess 12.2 H O2 Saturation 97.0 ABG pH 7.48 H ABG pCO2 48.0 H ABG pO2 84.0 L ABG HCO3 35.7 H ABG Total CO2 37.2 H Storm Test Pos Hemoglobin 0.3 Oxyhemoglobin 95.0 Carboxyhemoglobin 0.9 Total Hemoglobin 13.7 O2 Delivery Device Nc Oxygen Liter Flow 3.00 Sodium Potassium Chloride Carbon Dioxide Anion Gap BUN Creatinine Estimated GFR (MDRD) BUN/Creatinine Ratio Glucose Uric Acid Calcium Magnesium Total Bilirubin AST ALT Alkaline Phosphatase Troponin I NT-Pro-B Natriuret Pep Total Protein Albumin Globulin Albumin/Globulin Ratio Urine Color Yellow Urine Clarity Clear Urine pH 7.0 Ur Specific [place] 1.020 Urine Protein 1+ H Urine Glucose (UA) Negative Urine Ketones Negative Urine Blood Trace-intact H Urine Nitrite Negative Urine Bilirubin Negative Urine Urobilinogen 1.0 H Ur Leukocyte Esterase Negative Ur Squamous Epith Cells Pending Adenovirus (PCR) Not detected B. pertussis DNA (PCR) Not detected B.parapertussis DNA PCR Not detected C. pneumoniae DNA (PCR) Not detected Coronavirus OC43 (PCR) Not detected Coronavirus HKU1 (PCR) Not detected Coronavirus 229E (PCR) Not detected Coronavirus NL63 (PCR) Not detected Human Metapneumovir PCR Not detected Influenza Type A (PCR) Not detected Influenza B (RT-PCR) Not detected M. pneumoniae (PCR) Not detected Parainfluenza 1 (PCR) Not detected Parainfluenza 2 (PCR) Not detected Parainfluenza 3 (PCR) Not detected Parainfluenza 4 (PCR) Not detected RSV (PCR) Not detected Entero/Rhino (PCR) Not detected SARS-CoV-2 (PCR) Not detected Orders Category Date Time Status ABG DRAW REQUEST Stat CARDIO 11/10/20 15:30 Completed EKG-(ED ONLY) Stat CARDIO 11/10/20 15:41 Completed IV [ED IV/MEDIPORT/POWERPORT] .ONCE EMERGENCY 11/10/20 15:30 Active ABG COOX Stat LAB 11/10/20 15:29 Completed CBC W/ AUTO DIFF Stat LAB 11/10/20 15:20 Completed COMPREHENSIVE METABOLIC PANEL Stat LAB 11/10/20 15:20 Completed MAGNESIUM Stat LAB 11/10/20 15:20 Completed NT-PROBNP Stat LAB 11/10/20 15:20 Completed PARTIAL THROMBOPLASTIN TIME Stat LAB 11/10/20 15:20 Completed PT WITH INR Stat LAB 11/10/20 15:20 Completed RESPIRATORY PANEL 2.1 (PCR) Stat LAB 11/10/20 15:20 Completed TROPONIN I Stat LAB 11/10/20 15:20 Completed UA [URINALYSIS C & S IF INDICATED] Stat LAB 11/10/20 17:10 Results URIC ACID Stat LAB 11/10/20 15:20 Completed 0.9 % Sodium Chloride [Saline Flush] MEDS 11/10/20 15:29 Active 1 syr IVF PRN PRN Furosemide [Lasix] MEDS 11/10/20 15:48 Discontinued 40 mg IVP ONCE STA CHEST, 1V AP ONLY Stat RADS 11/10/20 15:29 Completed Medications Generic Name Dose Route Start Last Admin Trade Name Freq PRN Reason Stop Dose Admin Sodium Chloride 1 syr 11/10/20 15:29 11/10/20 16:00 0.9% Sodium Chloride 10 Ml Disp.Syrin IVF 1 syr PRN PRN Administration To flush IV Discontinued Medications Generic Name Dose Route Start Last Admin Trade Name Freq PRN Reason Stop Dose Admin Furosemide 40 mg 11/10/20 15:48 11/10/20 16:00 Furosemide Inj 40 Mg/4 Ml Vial IVP 11/10/20 15:49 40 mg ONCE STA Administration Vital Signs: Temp Pulse Resp BP Pulse Ox 11/10/20 14:58 97.7 F 125 H 24 135/107 H 93 L AISHA Risk Score AISHA Risk Score: Risk Score Odds of by 30D 0 0.1 (0.1-0.2) 1 0.3 (0.2-0.3) 2 0.4 (0.3-0.5) 3 0.7 (0.6-0.9) 4 1.2 (1.0-1.5) 5 2.2 (1.9-2.6) 6 3.0 (2.5-3.6) 7 4.8 (3.8-6.1) Discharge Plan Discharge Patient Disposition: ADMITTED INPATIENT Discharge Problem: CHF (congestive heart failure), COPD (chronic obstructive pulmonary disease) ED Provider: ERIK OSPINA Condition: Fair Physician Progress Note: []
[2020-11-10 15:45] LABS: BASOPHILS % (AUTO) 0.3 % (0.0-3.0); EOSINOPHILS # (AUTO) 0.1 K/ul (0.0-0.7); EOSINOPHILS % (AUTO) 1.5 % (0.0-7.0); HEMATOCRIT 43.6 % (42.0-52.0); HEMOGLOBIN 13.6 g/dl (14.0-18.0); IMMATURE GRANULOCYTE % (AUTO) 0.1 % (0.0-5.0); LYMPHOCYTES # (AUTO) 0.7 K/uL (0.60-3.4); LYMPHOCYTES % (AUTO) 10.8 (10.0-50.0); MEAN CORPUSCULAR HEMOGLOBIN 27.7 pg (27.0-31.0); MEAN CORPUSCULAR HGB CONC 31.2 (31.8-35.4); MEAN CORPUSCULAR VOLUME 88.8 fl (80.0-94.0); MONOCYTES # (AUTO) 0.7 K/uL (0.4-2.0); MONOCYTES % (AUTO) 9.9 (0-10); NEUTROPHILS # (AUTO) 5.2 K/ul (2.0-6.9); NEUTROPHILS % (AUTO) 77.4 % (42.2-75.2); PLATELET COUNT 146 10^3/uL (140-440); RDW COEFFICIENT OF VARIATION 17.4 % (11.6-14.8); RED BLOOD COUNT 4.91 10^6/ul (4.70-6.10); WHITE BLOOD COUNT 6.69 K/ul (4.2-10.2)
[2020-11-10] MEDS ORDERED: LASIX IVP STA (15:48)
[2020-11-10 15:56] LABS: ALANINE AMINOTRANSFERASE 20.9 U/L (0-50); ALBUMIN 3.8 g/dL (3.5-5.0); ALKALINE PHOSPHATASE 108.6 U/L (56-119); ASPARTATE AMINO TRANSFERASE 36.8 U/L (17-59); BILIRUBIN,TOTAL 1.82 mg/dL (0.2-1.3); BLOOD UREA NITROGEN 25.8 mg/dL (9-20); CALCIUM 8.5 mg/dL (8.4-10.2); CARBON DIOXIDE 35.6 mmol/L (22-30.0); CHLORIDE 95.9 mmol/L (98-107); CREATININE 1.27 mg/dL (0.60-1.10); GLUCOSE 186.8 mg/dL (74-106); POTASSIUM 3.46 mmol/L (3.5-5.1); TOTAL PROTEIN 7.26 g/dL (6.3-8.2); URIC ACID 5.97 mg/dL (3.5-8.5)
[2020-11-10 15:57] LABS: PARTIAL THROMBOPLASTIN TIME 26.8 SEC (23.9-40.0); PROTHROMBIN TIME 12.2 SEC (9.3-11.0)
--- NOTE | 2020-11-10 16:00 | DI ---
EXAM: Chest one view HISTORY: Dyspnea COMPARISON: 10/08/2020 TECHNIQUE: Single view of the chest was performed FINDINGS: Heart is enlarged. Mediastinal contour unchanged. Pulmonary vascular congestion. Small bilateral pleural effusions. Bibasilar atelectasis and/or consolidation. No visible pneumothorax. IMPRESSION: Cardiomegaly with pulmonary vascular congestion. Small bilateral pleural effusions with bibasilar atelectasis and/or pneumonia
[2020-11-10 16:08] LABS: TROPONIN I 0.047 ng/ml (0.0000-0.120)
[2020-11-10 17:18] LABS: BILIRUBIN,URINE Negative (NEGATIVE); CLARITY,URINE Clear (CLEAR); COLOR,URINE Yellow (YELLOW); GLUCOSE, URINE (UA) Negative (NEGATIVE); KETONES,URINE Negative (NEGATIVE); LEUKOCYTE ESTERASE ,URINE Negative (NEGATIVE); NITRITE,URINE Negative (NEGATIVE); PROTEIN,URINE 1+ (NEGATIVE); URINE, BLOOD Trace-intact (NEGATIVE)
[2020-11-10 17:28] LABS: HYALINE CASTS, URINE 0-2 (NOT PRESENT); MUCUS,URINE TRACE (NOT PRESENT); SQUAMOUS EPITHELIAL CELL,UR 0-2 (0-5); URINE RBC, MICROSCOPIC 0-2 (0-2)
[2020-11-10] MEDS ORDERED: NORCO 7.5-325 PO PRN (17:43)
[2020-11-10] MEDS ORDERED: ZOFRAN 4 MG/2 ML IVP PRN (18:00)
[2020-11-10] MEDS: ROCEPHIN 1 GM/50 ML D5W 1 GM/50 ML BAG IV SCH (18:05)
[2020-11-10] MEDS: ZOCOR PO SCH (20:00)
[2020-11-10] MEDS: COREG PO SCH (20:00)
[2020-11-10] MEDS: SOLU-MEDROL 40 MG IVP SCH (20:00)
[2020-11-10] MEDS: ELIQUIS PO SCH (20:01)
[2020-11-10] MEDS: K-DUR PO SCH (20:01)
[2020-11-10] MEDS: CARDIZEM PO SCH (20:01)
[2020-11-10] MEDS ORDERED: KENALOG 0.1% TP SCH (21:00)
[2020-11-10] MEDS: LANTUS SUBCUT SCH (22:38)
[2020-11-11 05:10] LABS: HEMATOCRIT 42.8 % (42.0-52.0); HEMOGLOBIN 13.5 g/dl (14.0-18.0); MEAN CORPUSCULAR HEMOGLOBIN 27.7 pg (27.0-31.0); MEAN CORPUSCULAR HGB CONC 31.5 (31.8-35.4); MEAN CORPUSCULAR VOLUME 87.9 fl (80.0-94.0); PLATELET COUNT 135 10^3/uL (140-440); RDW COEFFICIENT OF VARIATION 17.4 % (11.6-14.8); RED BLOOD COUNT 4.87 10^6/ul (4.70-6.10); WHITE BLOOD COUNT 4.35 K/ul (4.2-10.2)
[2020-11-11 05:18] LABS: ANISOCYTOSIS NOT PRESENT (NOT PRESENT)
[2020-11-11 05:25] LABS: ALANINE AMINOTRANSFERASE 19.9 U/L (0-50); ALBUMIN 3.59 g/dL (3.5-5.0); ALKALINE PHOSPHATASE 71.4 U/L (56-119); ASPARTATE AMINO TRANSFERASE 33.3 U/L (17-59); BILIRUBIN,TOTAL 1.48 mg/dL (0.2-1.3); CALCIUM 8.68 mg/dL (8.4-10.2); CARBON DIOXIDE 35.9 mmol/L (22-30.0); CHLORIDE 96.3 mmol/L (98-107); CREATININE 1.34 mg/dL (0.60-1.10); GLUCOSE 236.8 mg/dL (74-106); POTASSIUM 3.73 mmol/L (3.5-5.1); SODIUM 139.4 mmol/L (134.5-145); TOTAL PROTEIN 6.91 g/dL (6.3-8.2)
[2020-11-11] MEDS: LASIX IVP SCH (05:33)
[2020-11-11] MEDS: JANUVIA PO SCH (08:11)
[2020-11-11] MEDS: CARDIZEM PO SCH ×2 (08:11→21:22)
[2020-11-11] MEDS: VITAMIN D PO SCH (08:11)
[2020-11-11] MEDS: CYMBALTA PO SCH (08:11)
[2020-11-11] MEDS: K-DUR PO SCH ×3 (08:11→21:23)
[2020-11-11] MEDS: ZINC-220 PO SCH (08:12)
[2020-11-11] MEDS: COREG PO SCH ×2 (08:12→21:23)
[2020-11-11] MEDS: METRONIDAZOLE 0.75% TP SCH ×3 (08:13→21:45)
[2020-11-11] MEDS: ELIQUIS PO SCH ×2 (08:16→21:23)
[2020-11-11] MEDS ORDERED: SYNTHROID PO SCH ×2 (08:30→09:00)
[2020-11-11] MEDS: SOLU-MEDROL 40 MG IVP SCH ×2 (08:40→21:20)
[2020-11-11] MEDS ORDERED: PEPCID PO SCH (09:00)
[2020-11-11] MEDS: ROCEPHIN 1 GM/50 ML D5W 1 GM/50 ML BAG IV SCH (09:39)
[2020-11-11] MEDS: KENALOG 0.1% TP SCH ×2 (09:40→21:30)
--- NOTE | 2020-11-11 10:00 | DI ---
EXAM: Chest one view, frontal view only. HISTORY: Congestive heart failure follow-up. COMPARISON: 1 day prior. FINDINGS: Heart enlarged. Atherosclerotic calcifications present. Vascular congestion unchanged. Interstitial opacities throughout both lungs with bibasilar consolidation and small pleural effusions again noted, unchanged. No new opacities are seen. There is no pneumothorax. No acute osseous abn ormality identified. IMPRESSION: Stable appearance of the chest.
[2020-11-11] MEDS: HUMULIN R SUBCUT PRN ×3 (12:08→21:27)
--- NOTE | 2020-11-11 14:44 | PN ---
DATE OF SERVICE: 11/10/2020 SUBJECTIVE: The patient was brought to the emergency room by the family because of shortness of breath and leg edema. The patient was seen and examined by the ER attending. He was noted to have ventricular failure with bilateral leg edema which is also multifactorial. The patient is to be hospitalized with IV Lasix, cut down on salt intake, supplements, steroids and antibiotics. The patient has COPD exacerbation also. He has chronic respiratory failure. He is on NEBS treatment along with steroids intermittently with Lasix. The patient's blood gasses on three liters, oxygen saturation is 95% with pCO2 of 45 with pO2 of approximately 70 with pH 7.47. CONDITION: Stable but the patient needs to be diuresed. His fluid overload needs to be addressed. TIME SPENT: More than 30 minutes. Plan and coordination of the patient's care discussed in the presence of nurse. MATTHEW
[2020-11-11] MEDS ORDERED: ZAROXOLYN PO SCH (17:46)
[2020-11-11] MEDS: ZOCOR PO SCH (21:23)
[2020-11-11] MEDS: LANTUS SUBCUT SCH (21:28)
[2020-11-12 05:33] LABS: BASOPHILS % (AUTO) 0.1 % (0.0-3.0); HEMATOCRIT 40.8 % (42.0-52.0); HEMOGLOBIN 13.2 g/dl (14.0-18.0); IMMATURE GRANULOCYTE # (AUTO) 0.1 (0.0-1.0); IMMATURE GRANULOCYTE % (AUTO) 0.5 % (0.0-5.0); LYMPHOCYTES # (AUTO) 0.5 K/uL (0.60-3.4); LYMPHOCYTES % (AUTO) 4.5 (10.0-50.0); MEAN CORPUSCULAR HEMOGLOBIN 28.2 pg (27.0-31.0); MEAN CORPUSCULAR HGB CONC 32.4 (31.8-35.4); MEAN CORPUSCULAR VOLUME 87.2 fl (80.0-94.0); MONOCYTES # (AUTO) 0.3 K/uL (0.4-2.0); MONOCYTES % (AUTO) 3.2 (0-10); NEUTROPHILS # (AUTO) 9.3 K/ul (2.0-6.9); NEUTROPHILS % (AUTO) 91.7 % (42.2-75.2); PLATELET COUNT 141 10^3/uL (140-440); RDW COEFFICIENT OF VARIATION 17.2 % (11.6-14.8); RED BLOOD COUNT 4.68 10^6/ul (4.70-6.10); WHITE BLOOD COUNT 10.11 K/ul (4.2-10.2)
[2020-11-12] MEDS: SYNTHROID PO SCH ×2 (05:33)
[2020-11-12 05:49] LABS: ALANINE AMINOTRANSFERASE 18.4 U/L (0-50); ALBUMIN 3.53 g/dL (3.5-5.0); ALKALINE PHOSPHATASE 80.3 U/L (56-119); ASPARTATE AMINO TRANSFERASE 30.5 U/L (17-59); BILIRUBIN,TOTAL 0.98 mg/dL (0.2-1.3); BLOOD UREA NITROGEN 33.6 mg/dL (9-20); CALCIUM 9.01 mg/dL (8.4-10.2); CARBON DIOXIDE 33.4 mmol/L (22-30.0); CHLORIDE 96.8 mmol/L (98-107); CREATININE 1.54 mg/dL (0.60-1.10); GLUCOSE 173.5 mg/dL (74-106); POTASSIUM 4.16 mmol/L (3.5-5.1); SODIUM 135.8 mmol/L (134.5-145); TOTAL PROTEIN 6.61 g/dL (6.3-8.2)
[2020-11-12] MEDS: HUMULIN R SUBCUT PRN ×4 (06:06→20:53)
[2020-11-12] MEDS: LASIX IVP SCH (06:17)
[2020-11-12] MEDS: K-DUR PO SCH ×3 (08:45→20:51)
[2020-11-12] MEDS: JANUVIA PO SCH (08:45)
[2020-11-12] MEDS: CARDIZEM PO SCH ×2 (08:45→20:51)
[2020-11-12] MEDS: VITAMIN D PO SCH (08:45)
[2020-11-12] MEDS: PEPCID PO SCH (08:46)
[2020-11-12] MEDS: CYMBALTA PO SCH (08:46)
[2020-11-12] MEDS: ZINC-220 PO SCH (08:46)
[2020-11-12] MEDS: ROCEPHIN 1 GM/50 ML D5W 1 GM/50 ML BAG IV SCH (08:46)
[2020-11-12] MEDS: KENALOG 0.1% TP SCH ×2 (08:46→20:58)
[2020-11-12] MEDS: COREG PO SCH ×2 (08:46→20:51)
[2020-11-12] MEDS: ELIQUIS PO SCH ×2 (08:47→20:52)
[2020-11-12] MEDS: SOLU-MEDROL 40 MG IVP SCH ×2 (08:52→21:56)
[2020-11-12] MEDS: METRONIDAZOLE 0.75% TP SCH ×2 (08:53→21:21)
--- NOTE | 2020-11-12 13:25 | HP ---
DATE OF SERVICE: 11/10/20 REASON FOR HOSPITALIZATION: Shortness of breath, leg swelling, cough, congestion worsening over the past three to four days. HISTORY OF PRESENT ILLNESS: 85-year-old white male was brought to the emergency room by family with the above complaints of nearly 3 to 4 days duration. The patient has been in the hospital on 10/08/20 with similar type of problem with biventricular failure with worsening of his COPD. The patient has been unable to do his activities of daily living and needs more assistance. Also intermediate activity of daily living has also been suffering because of his shortness of breath. PAST MEDICAL HISTORY: Chronic respiratory failure Recurrent exacerbation of COPD Diabetes mellitus type 2 Severe chronic lung disease Lumbar radiculopathy Severe generalized osteoarthritis involving feet, ankles Questionable history of rheumatoid arthritis, the psychiatry instructor had not agreed on this but some of them were positive that patient had it with negative rheumatoid factor. Chronic kidney disease, Stage 3 Hypertension with LVH Hypothyroidism Dyslipidemia Left sciatica Atrial fibrillation on Eliquis Early dementia Bilateral peripheral arterial disease, Dr. Valerio follows B12 deficiency PAST SURGICAL HISTORY: Hernia repair Bilateral knee arthroscopy Left foot surgery Chest tube insertion for pleural effusion and generalized anasarca History of eye surgery REVIEW OF SYSTEMS: CONSTITUTIONAL: Weakness and fatigue. No night sweats. No malaise, lethargy. No fever or chills. HEENT: Eyes: No visual changes. No eye pain. No eye discharge. ENT: No runny nose. No epistaxis. No sinus pain. No sore throat. No odynophagia. No ear pain. No congestion. RESPIRATORY: No cough, no congestion. No hemoptysis. CARDIOVASCULAR: Shortness of breath on minimal exertion. No angina symptoms. No CHF symptoms. No atypical chest pain for CAD. No palpitations. No PND. Questionable orthopnea. GASTROINTESTINAL: Appetite has been poor. No abdominal pain. No nausea or vomiting. No diarrhea or constipation. No hematemesis. No hematochezia. GENITOURINARY: No urgency. No frequency. No dysuria. No hematuria. No obstructive symptoms. No discharge. No pain. No significant abnormal bleeding. MUSCULOSKELETAL: Generalized aches and pains. Ambulation has been difficult. No joint swelling. No arthritis. NEUROLOGICAL: No headache. No neck pain. No syncope. No seizures. No dizziness. PSYCHIATRIC: Not anxious. No depression. No suicidal thoughts. No homicidal thoughts. SKIN: No rash. No lesions. No wounds. ENDOCRINE: No unexplained weight loss. No weight gain. HEMATOLOGIC/LYMPHATIC: No anemia. No purpura. No petechiae. No prolonged or excessive bleeding. No palpable lymph nodes. PERSONAL/FAMILY/SOCIAL HISTORY: The patient is , lives with the , does most of the activity of daily living and intermediate activity of daily living. Nonsmoker. No alcohol abuse, on home oxygen. MEDICATIONS: Cymbalta 30 mg p.o. daily Synthroid 125 mcg p.o. daily Simvastatin 5 mg at bedtime Eliquis 2.5 p.o. twice a day Lantus 20 units subQ daily Hydrocodone 7.5 mg q.6 p.r.n. Bumex 2 mg p.o. daily Diltiazem 60 mg p.o. twice a day Metolazone 2.5 four days a week Coreg 3.125 mg twice a day Vitamin D3 5000 units daily Famotidine 20 mg p.o. daily Metrocream application as needed b.i.d. Januvia 50 mg p.o. daily Zinc supplement Potassium 20 mEq p.o. t.i.d. ALLERGIES: NKDA PHYSICAL EXAMINATION: GENERAL: The patient looks somewhat pale. VITAL SIGNS: Temperature 97.7, pulse 125, respiratory rate 24, BP 135/107, pulse ox 93%. HEENT: Head normocephalic, atraumatic. Eyes: Extraocular muscles are intact. Pupils are equal, round and reactive to light and accommodation. Ears: No lesions. Nose appeared normal. Throat: No exudate or erythema. NECK: Supple. JVP 2 cm. No carotid bruit. No lymphadenopathy. LUNGS: Decreased breath sounds bilaterally with expiratory wheeze. Percussion note normal. Chest symmetrical. HEART: S1, S2, tachycardia 120/min, irregular. No S3. No cyanosis or clubbing. No ascites. Pulses: Dorsalis pedis and posterior tibial pulses feeble bilaterally. ABDOMEN: Soft. Nontender. Bowel sounds active. No CVA tenderness. No mass felt. EXTREMITIES: +2 to +3 pitting edema bilaterally. Full range of motion of all extremities, equal. NEUROLOGIC: No focal deficit. Cranial nerves II through XII are grossly intact. No headache, no double vision or headache. SKIN: Not dry. Intact. Turgor - normal. LYMPHATIC: No palpable lymph nodes/no lymphedema. MUSCULOSKELETAL: Normal joints with no swelling. Muscle tone is normal. LABS: Hemoglobin 13.6, hematocrit 43, WBC 5,000, normal differential. Creatinine 1.27, BUN 25, potassium 3.46. Pro-BNP 5,740, troponin normal. Arterial blood gases showed p02 of 84, pc02 of 48, pH 7.48, 97% saturation on 3L. UA practically negative. Covid negative. ASSESSMENT: 1. Worsening of COPD with acute exacerbation with acute respiratory failure on chronic respiratory insufficiency. 2. Biventricular failure. 3. Generalized fluid retention which is multifactorial with contributing factors Cor Pulmonale, biventricular failure, insufficiency. 4. Chronic kidney disease. 5. Generalized osteoarthritis with possibility of rheumatoid arthritis. 6. Lumbar radiculopathy. 7. History of hypertension with LVH. 8. Hypothyroidism. 9. Dyslipidemia. 10. Bilateral total knee replacement. 11. Early dementia. 12. Atrial fibrillation with rapid ventricular response on admission. 13. Bilateral leg edema, multifactorial. 14. History of hypokalemia. 15. B12 deficiency. PLAN: 1. Admit the patient. 2. Routine telemetry orders which include serial EKGs, cardiac markers. 3. IV Lasix daily. 4. Continue leg elevation. 5. Arterial blood gases, monitoring. 6. IV steroids. 7. IV antibiotics, Rocephin. 8. Nebs treatment. 9. Sliding scale with coverage. 10. Patient education carried out about low salt diet, leg elevation and advised to take his medication on a regular basis. CONDITION: Stable. TIME SPENT: More than 70 minutes. MATTHEW
--- NOTE | 2020-11-12 14:18 | PN ---
DATE OF SERVICE: 11/11/20 SUBJECTIVE: 85-year-old white male was hospitalized with exacerbation of CHF and COPD. The patient is feeling a lot better, breathing better, still short of breath on minimal exertion as usual. REVIEW OF SYSTEMS: CONSTITUTIONAL: No night sweats. No fatigue, malaise, lethargy. No fever or chills. HEENT: Eyes: No visual changes. No eye pain. No eye discharge. ENT: No runny nose. No epistaxis. No sinus pain. No sore throat. No odynophagia. No congestion. RESPIRATORY: No cough, no congestion. No hemoptysis. No shortness of breath. CARDIOVASCULAR: No angina symptoms. No CHF symptoms. No atypical chest pain for CAD. No palpitations. No PND. No orthopnea. GASTROINTESTINAL: Appetite has improved. No abdominal pain. No nausea or vomiting. No diarrhea or constipation. No hematemesis. No hematochezia. GENITOURINARY: No urgency. No frequency. No dysuria. No hematuria. No obstructive symptoms. No discharge. No pain. No significant abnormal bleeding. MUSCULOSKELETAL: No musculoskeletal pain; no joint swelling. NEUROLOGICAL: No headache. No neck pain. No syncope. No seizures. No dizziness. PSYCHIATRIC: Not anxious. No depression. No suicidal thoughts. No homicidal thoughts. SKIN: No rash. No lesions. No wounds. ENDOCRINE: No unexplained weight loss. No weight gain. HEMATOLOGIC/LYMPHATIC: No anemia. No purpura. No petechiae. No prolonged or excessive bleeding. No palpable lymph nodes. PHYSICAL EXAMINATION: VITAL SIGNS: Temperature 97.2, pulse 106, respiratory rate 18, BP 148/99, pulse ox 97% with 3L. HEENT: Head normocephalic, atraumatic. Eyes: Extraocular muscles are intact. Pupils are equal, round and reactive to light and accommodation. Ears: No lesions. Nose appeared normal. Throat: No exudate or erythema. NECK: Supple. No JVD, no carotid bruit. No lymphadenopathy or thyromegaly. LUNGS: Decreased breath sounds but clear to auscultation. Percussion note normal. Chest symmetrical. HEART: S1, S2, no S3. No murmurs. No cyanosis or clubbing. No ascites. Pulses: Dorsalis pedis and posterior tibial pulses +1 to +2 bilaterally. ABDOMEN: Soft. Nontender. Bowel sounds active. No CVA tenderness. No mass felt. EXTREMITIES: No edema. Full range of motion of all extremities, equal. NEUROLOGIC: No focal deficit. Cranial nerves II through XII are grossly intact. No headache. No double vision. SKIN: Not dry. Intact. Turgor - normal. LYMPHATIC: No palpable lymph nodes/no lymphedema. MUSCULOSKELETAL: Normal joints with no swelling. Muscle tone is normal. LABS: Hemoglobin 13.5, hematocrit 42, WBC 4,300, normal differential. Creatinine 1.3, BUN 23, potassium 3.7. The patient is SARS negative. Pro-BNP 5,740 which is to be expected. Troponin negative. ASSESSMENT: 1. Exacerbation of COPD. 2. Biventricular failure. 3. Fluid retention. 4. Severe chronic lung disease with chronic respiratory failure. 5. Diabetes mellitus. 6. Hyperglycemia has worsened because of steroid therapy. PLAN: 1. Continue steroids, nebs, antibiotics. 2. Leg elevation. 3. IV Lasix. 4. Accu-Check with sliding scale coverage. 5. Will monitor CBC, CMP. CONDITION: Stable. TIME SPENT: More than 30 minutes. Plan and coordination of the patient's care discussed in the presence of nurse. MATTHEW
[2020-11-12] MEDS: ZOCOR PO SCH (20:51)
[2020-11-12] MEDS: LANTUS SUBCUT SCH (20:53)
[2020-11-13] MEDS: SYNTHROID PO SCH ×2 (06:05)
[2020-11-13] MEDS: LASIX IVP SCH (06:05)
[2020-11-13] MEDS: HUMULIN R SUBCUT PRN ×4 (07:36→20:37)
[2020-11-13 07:40] LABS: BASOPHILS % (AUTO) 0.1 % (0.0-3.0); HEMATOCRIT 42.4 % (42.0-52.0); HEMOGLOBIN 13.7 g/dl (14.0-18.0); IMMATURE GRANULOCYTE # (AUTO) 0.1 (0.0-1.0); IMMATURE GRANULOCYTE % (AUTO) 0.4 % (0.0-5.0); LYMPHOCYTES # (AUTO) 0.3 K/uL (0.60-3.4); LYMPHOCYTES % (AUTO) 2.7 (10.0-50.0); MEAN CORPUSCULAR HEMOGLOBIN 28.2 pg (27.0-31.0); MEAN CORPUSCULAR HGB CONC 32.3 (31.8-35.4); MEAN CORPUSCULAR VOLUME 87.2 fl (80.0-94.0); MONOCYTES # (AUTO) 0.3 K/uL (0.4-2.0); MONOCYTES % (AUTO) 2.9 (0-10); NEUTROPHILS % (AUTO) 93.9 % (42.2-75.2); PLATELET COUNT 127 10^3/uL (140-440); RDW COEFFICIENT OF VARIATION 17.4 % (11.6-14.8); RED BLOOD COUNT 4.86 10^6/ul (4.70-6.10)
[2020-11-13 07:53] LABS: ALANINE AMINOTRANSFERASE 20.1 U/L (0-50); ALBUMIN 3.66 g/dL (3.5-5.0); ALKALINE PHOSPHATASE 80.5 U/L (56-119); BILIRUBIN,TOTAL 0.84 mg/dL (0.2-1.3); BLOOD UREA NITROGEN 42.1 mg/dL (9-20); CALCIUM 9.17 mg/dL (8.4-10.2); CHLORIDE 92.7 mmol/L (98-107); CREATININE 1.62 mg/dL (0.60-1.10); GLUCOSE 181.9 mg/dL (74-106); POTASSIUM 3.78 mmol/L (3.5-5.1); SODIUM 136.7 mmol/L (134.5-145); TOTAL PROTEIN 6.89 g/dL (6.3-8.2)
[2020-11-13 08:37] LABS: ABG PH 7.51 (7.35-7.45)
--- NOTE | 2020-11-13 09:14 | PN ---
DATE OF SERVICE: 11/12/20 SUBJECTIVE: 85-year-old white male hospitalized with biventricular failure, COPD exacerbation and possible pneumonitis. The patient is feeling a lot better. He is laying flat. REVIEW OF SYSTEMS: CONSTITUTIONAL: No night sweats. No fatigue, malaise, lethargy. No fever or chills. HEENT: Eyes: No visual changes. No eye pain. No eye discharge. ENT: No runny nose. No epistaxis. No sinus pain. No sore throat. No odynophagia. No congestion. RESPIRATORY: Breathing is better. No pleuritic pain. No cough, no congestion. No hemoptysis. Shortness of breath on exertion as usual. CARDIOVASCULAR: No angina symptoms. No CHF symptoms. No atypical chest pain for CAD. No palpitations. No PND. No orthopnea. GASTROINTESTINAL: Appetite has improved. No abdominal pain. No nausea or vomiting. No diarrhea or constipation. No hematemesis. No hematochezia. GENITOURINARY: No urgency. No frequency. No dysuria. No hematuria. No obstructive symptoms. No discharge. No pain. No significant abnormal bleeding. MUSCULOSKELETAL: Generalized arthritic pain as usual. NEUROLOGICAL: No headache. No neck pain. No syncope. No seizures. No dizziness. PSYCHIATRIC: Not anxious. No depression. No suicidal thoughts. No homicidal thoughts. SKIN: No rash. No lesions. No wounds. ENDOCRINE: No unexplained weight loss. No weight gain. HEMATOLOGIC/LYMPHATIC: No anemia. No purpura. No petechiae. No prolonged or excessive bleeding. No palpable lymph nodes. PHYSICAL EXAMINATION: VITAL SIGNS: Temperature 97.3, pulse 76, respiratory rate 18, BP 130/80, pulse ox 98%. HEENT: Head normocephalic, atraumatic. Eyes: Extraocular muscles are intact. Pupils are equal, round and reactive to light and accommodation. Ears: No lesions. Nose appeared normal. Throat: No exudate or erythema. NECK: Supple. No JVD, no carotid bruit. No lymphadenopathy or thyromegaly. LUNGS: Decreased breath sounds but clear to auscultation. Percussion note normal. Chest symmetrical. HEART: S1, S2, no S3. No murmurs. No cyanosis or clubbing. No ascites. Pulses: Dorsalis pedis and posterior tibial pulses +1 to +2 bilaterally. ABDOMEN: Soft. Nontender. Bowel sounds active. No CVA tenderness. No mass felt. EXTREMITIES: No edema. Full range of motion of all extremities, equal. NEUROLOGIC: No focal deficit. Cranial nerves II through XII are grossly intact. No headache. No double vision. SKIN: Not dry. Intact. Turgor - normal. LYMPHATIC: No palpable lymph nodes/no lymphedema. MUSCULOSKELETAL: Normal joints with no swelling. Muscle tone is normal. LABS: Hemoglobin 13.2, hematocrit 40, WBC 10,000, normal differential. Creatinine 1.5, BUN 33, potassium 4.1. ASSESSMENT: 1. CHF seems to have resolved. The patient has no symptoms of it. 2. Biventricular failure under control, especially cor pulmonale. 3. Leg edema seems to be somewhat less. +1 to +2 pitting edema. 4. The patient's mental status is clear. 5. Kidney functions are stable. PLAN: 1. Continue on steroids, nebs, Lasix. CONDITION: Improving. Prognosis is guarded. TIME SPENT: More than 30 minutes. Plan and coordination of the patient's care discussed in the presence of nurse. MATTHEW
[2020-11-13] MEDS: SOLU-MEDROL 40 MG IVP SCH ×2 (09:38→21:49)
[2020-11-13] MEDS: ROCEPHIN 1 GM/50 ML D5W 1 GM/50 ML BAG IV SCH (09:38)
[2020-11-13] MEDS: VITAMIN D PO SCH (09:38)
[2020-11-13] MEDS: PEPCID PO SCH (09:39)
[2020-11-13] MEDS: ZINC-220 PO SCH (09:39)
[2020-11-13] MEDS: K-DUR PO SCH ×3 (09:39→20:41)
[2020-11-13] MEDS: CARDIZEM PO SCH ×2 (09:39→20:40)
[2020-11-13] MEDS: CYMBALTA PO SCH (09:39)
[2020-11-13] MEDS: JANUVIA PO SCH (09:40)
[2020-11-13] MEDS: COREG PO SCH ×2 (09:40→20:41)
[2020-11-13] MEDS: ELIQUIS PO SCH ×2 (09:40→20:39)
[2020-11-13] MEDS: KENALOG 0.1% TP SCH ×2 (09:47→20:35)
[2020-11-13] MEDS: METRONIDAZOLE 0.75% TP SCH ×2 (09:50→20:44)
--- NOTE | 2020-11-13 10:33 | PCM.PROG ---
Attending Provider: ATTENDING PROVIDER: Dr. SPARKLE MART DATE OF SERVICE: 11/13/20 SUBJECTIVE: This 85 year old /WHITE M was hospitalized 11/10/20 with CHF, biventricular failure with cor pulmonale. Also, leg swelling, shortness of breath, cough and congestion with possible pneumonitis. REVIEW OF SYSTEMS: CONSTITUTIONAL: No night sweats. No fatigue, malaise, lethargy. No fever or chills. HEENT: Eyes: No visual changes. No eye pain. No eye discharge. ENT: No runny no se. No epistaxis. No sinus pain. No odynophagia. No congestion. RESPIRATORY: Not much cough. No hemoptysis. No shortness of breath. CARDIOVASCULAR: No angina symptoms. No CHF symptoms. No atypical chest pain for CAD. No palpitations. No orthopnea.. GASTROINTESTINAL: Appetite improved. No abdominal pain. No nausea or vomiting. No diarrhea or constipation. No hematemesis. No hematochezia. GENITOURINARY: No urgency. No frequency. No dysuria. No hematuria. No obstructive symptoms. No discharge. No pain. No significant abnormal bleeding. MUSCULOSKELETAL: No musculoskeletal pain; no joint swelling. NEUROLOGICAL: Awake, alert, oriented to time, place and person. No headache. No neck pain. No syncope. No seizures. No dizziness. PSYCHIATRIC: Not anxious. No depression. No suicidal thoughts. No homicidal thoughts. SKIN: No rash. No lesions. No wounds. ENDOCRINE: No unexplained weight loss. No weight gain. HEMATOLOGIC/LYMPHATIC: No anemia. No purpura. No petechiae. No prolonged or excessive bleeding. No palpable lymph nodes. PHYSICAL EXAMINATION: GENERAL: The patient is awake, alert and oriented, lying/sitting in bed in no distress. VITAL SIGNS: Temperature 97.3 F, Pulse 68, Respiratory Rate 18, BP 126/78, Pulse Ox 94% HEENT: Head normocephalic, atraumatic. Eyes: Extraocular muscles are intact. Pupils are equal, round and reactive to light and accommodation. Ears: No lesions. Nose appeared normal. Throat: No exudate or erythema. NECK: Supple. No JVD, no carotid bruit. No lymphadenopathy or thyromegaly. LUNGS: Clear to auscultation. Percussion note normal. Chest symmetrical. HEART: Irregular. Heart rate 80/min. S1, S2, no S3. No murmurs. No cyanosis or clubbing. No ascites. Pulses: Dorsalis pedis and posterior tibial pulses +1 to +2 both sides. ABDOMEN: Soft. Non-tender. Bowel sounds active. No CVA tenderness. No mass felt. EXTREMITIES: Trace edema. Edema has responded to IV Lasix and leg elevation. Full range of motion of all extremities, equal. NEUROLOGIC: No focal deficit. Cranial nerves II through XII are grossly intact. No headache, no double vision or headache. SKIN: Warm and dry. Intact. Turgor-normal. LYMPHATIC: No palpable lymph nodes/no lymphedema. MUSCULOSKELETAL: Normal joints with no swelling. Muscle tone is normal. LAB REVIEW: 11/13/20 07:36 11/12/20 04:40 11/13/20 07:36: WBC 11.70 H, RBC 4.86, Hgb 13.7 L, Hct 42.4, MCV 87.2, MCH 28.2, MCHC 32.3, RDW Coeff of Marek 17.4 H, Plt Count 127 L, Immature Gran % (Auto) 0.4, Neut % (Auto) 93.9 H, Lymph % (Auto) 2.7 L, [place] % (Auto) 2.9, Eos % (Auto) 0.0, Baso % (Auto) 0.1, Neut # (Auto) 11.0 H, Lymph # (Auto) 0.3 L, [place] # (Auto) 0.3 L, Eos # (Auto) 0.0, Baso # (Auto) 0.0, Immature Gran # (Auto) 0.1 ASSESSMENT: Please see below. 1. Biventricular failure seems to be improving clinically. 2. Atrial fibrillation. 3. Diabetes mellitus. 4. Bilateral leg edema which is multifactorial, seems to be responding to Lasix and leg elevation. PLAN: 1. Low salt diet. 2. Leg elevation. 3. ABG with 3L. 4. Chest x-ray. 5. Continue IV Lasix. 6. Continue Rocephin. Plan and coordination of the patient's care discussed in the presence of Brand Sales Manager and nurse. CONDITION: Stable SCRIBED BY: HARRY VERA License Distributor scribed while in presence of service performed by Dr. SPARKLE MART on 11/13/20 ([id number])
--- NOTE | 2020-11-13 12:05 | DI ---
EXAM: Chest two view, frontal and lateral views. HISTORY: Shortness of breath. COMPARISON: 11/11/2020. FINDINGS: Cardiac silhouette enlarged. Atherosclerotic calcifications present. Stable basilar bron chial thickening, reticular opacities, mild consolidation and small pleural effusions. Upper lungs a re clear without pneumothorax. Degenerative changes seen in the spine. Since prior study, and conge stion appears decreased. IMPRESSION: Decreased vascular congestion. Otherwise stable appearance of the chest.
[2020-11-13] MEDS: LANTUS SUBCUT SCH (20:39)
[2020-11-13] MEDS: ZOCOR PO SCH (20:41)
[2020-11-14 05:30] LABS: HEMOGLOBIN 13.8 g/dl (14.0-18.0); IMMATURE GRANULOCYTE # (AUTO) 0.1 (0.0-1.0); IMMATURE GRANULOCYTE % (AUTO) 0.5 % (0.0-5.0); LYMPHOCYTES # (AUTO) 0.3 K/uL (0.60-3.4); MEAN CORPUSCULAR HEMOGLOBIN 28.7 pg (27.0-31.0); MEAN CORPUSCULAR HGB CONC 32.9 (31.8-35.4); MEAN CORPUSCULAR VOLUME 87.3 fl (80.0-94.0); MONOCYTES # (AUTO) 0.3 K/uL (0.4-2.0); MONOCYTES % (AUTO) 3.4 (0-10); NEUTROPHILS % (AUTO) 93.1 % (42.2-75.2); PLATELET COUNT 111 10^3/uL (140-440); RDW COEFFICIENT OF VARIATION 17.5 % (11.6-14.8); RED BLOOD COUNT 4.81 10^6/ul (4.70-6.10); WHITE BLOOD COUNT 9.71 K/ul (4.2-10.2)
[2020-11-14 05:45] LABS: ALANINE AMINOTRANSFERASE 24.9 U/L (0-50); ALBUMIN 3.41 g/dL (3.5-5.0); ALKALINE PHOSPHATASE 75.8 U/L (56-119); ASPARTATE AMINO TRANSFERASE 35.9 U/L (17-59); BILIRUBIN,TOTAL 0.78 mg/dL (0.2-1.3); BLOOD UREA NITROGEN 48.9 mg/dL (9-20); CALCIUM 9.41 mg/dL (8.4-10.2); CARBON DIOXIDE 39.9 mmol/L (22-30.0); CHLORIDE 92.1 mmol/L (98-107); CREATININE 1.66 mg/dL (0.60-1.10); GLUCOSE 158.6 mg/dL (74-106); POTASSIUM 3.85 mmol/L (3.5-5.1); SODIUM 136.4 mmol/L (134.5-145); TOTAL PROTEIN 6.28 g/dL (6.3-8.2)
[2020-11-14] MEDS: LASIX IVP SCH (06:05)
[2020-11-14] MEDS: SYNTHROID PO SCH ×2 (06:05→06:06)
[2020-11-14 06:42] VITALS: BP 135/86; TEMP 97.4
[2020-11-14] MEDS: HUMULIN R SUBCUT PRN ×2 (06:46→11:19)
[2020-11-14] MEDS: CARDIZEM PO SCH (08:05)
[2020-11-14] MEDS: VITAMIN D PO SCH (08:07)
[2020-11-14] MEDS: COREG PO SCH (08:08)
[2020-11-14] MEDS: JANUVIA PO SCH (08:08)
[2020-11-14] MEDS: K-DUR PO SCH (08:09)
[2020-11-14] MEDS: PEPCID PO SCH (08:09)
[2020-11-14] MEDS: ROCEPHIN 1 GM/50 ML D5W 1 GM/50 ML BAG IV SCH (08:09)
[2020-11-14] MEDS: CYMBALTA PO SCH (08:09)
[2020-11-14] MEDS: ZINC-220 PO SCH (08:09)
[2020-11-14] MEDS: KENALOG 0.1% TP SCH (08:10)
[2020-11-14] MEDS: ELIQUIS PO SCH (08:11)
[2020-11-14] MEDS: METRONIDAZOLE 0.75% TP SCH (08:14)
[2020-11-14] MEDS: SOLU-MEDROL 40 MG IVP SCH (09:36)
--- NOTE | 2020-11-16 11:06 | PN ---
DATE OF SERVICE: 11/14/2020 SUBJECTIVE: The patient was seen and examined today. The patient is feeling a lot better. The patient's chest x-ray had shown improvement a couple of days ago. This is done yesterday shows oxygen saturation 97% on 3 liters, normal pH. No symptoms of CHF or CAD. REVIEW OF SYSTEMS: CONSTITUTIONAL: No night sweats. No fatigue, malaise, lethargy. No fever or chills. Feeling better. HEENT: Eyes: No visual changes. No eye pain. No eye discharge. ENT: No runny nose. No epistaxis. No sinus pain. No sore throat. No odynophagia. No congestion. RESPIRATORY: No cough, no congestion. No hemoptysis. No shortness of breath. CARDIOVASCULAR: No angina symptoms. No CHF symptoms. No atypical chest pain for CAD. No palpitations. No PND. No orthopnea. GASTROINTESTINAL: No abdominal pain. No nausea or vomiting. No diarrhea or constipation. No hematemesis. No hematochezia. Appetite has improved. GENITOURINARY: No urgency. No frequency. No dysuria. No hematuria. No obstructive symptoms. No discharge. No pain. No significant abnormal bleeding. MUSCULOSKELETAL: No musculoskeletal pain; no joint swelling. NEUROLOGICAL: No headache. No neck pain. No syncope. No seizures. No dizziness. PSYCHIATRIC: Not anxious. No depression. No suicidal thoughts. No homicidal thoughts. SKIN: No rash. No lesions. No wounds. ENDOCRINE: No unexplained weight loss. No weight gain. HEMATOLOGIC/LYMPHATIC: No anemia. No purpura. No petechiae. No prolonged or excessive bleeding. No palpable lymph nodes. PHYSICAL EXAMINATION: HEENT: Head normocephalic, atraumatic. Eyes: Extraocular muscles are intact. Pupils are equal, round and reactive to light and accommodation. Ears: No lesions. Nose appeared normal. Throat: No exudate or erythema. NECK: Supple. No JVD, no carotid bruit. No lymphadenopathy or thyromegaly. LUNGS: Decreased breath sounds but Clear to auscultation. Good air entry. Percussion note normal. Chest symmetrical. HEART: S1, S2, no S3. No murmurs. No cyanosis or clubbing. No ascites. Pulses: Dorsalis pedis and posterior tibial pulses +1 to +2 bilaterally. ABDOMEN: Soft. Nontender. Bowel sounds active. No CVA tenderness. No mass felt. EXTREMITIES: Trace edema. Full range of motion of all extremities, equal. NEUROLOGIC: No focal deficit. Cranial nerves II through XII are grossly intact. No headache. No double vision. SKIN: Not dry. Intact. Turgor - normal. LYMPHATIC: No palpable lymph nodes/no lymphedema. MUSCULOSKELETAL: Normal joints with no swelling. Muscle tone is normal. ASSESSMENT: 1. Biventricular failure seems to have resolved, clinically. S1 radiographically. 2. Pneumonitis/Bronchitis better PLAN: 1. Discharge the patient home on Antibiotics; Keflex 1200mg TID for 5 days and steroids 10mg twice a day for 5 days and 1 a day for 5 days. 2. Advised to keep the legs up during the day time when he is watching TV or while he is sitting down and also at night. 3. Advised to cut down on salt 4. DASH diet discussed 5. Take extra Zaroxolyn with Lasix with increase of the swelling of the leg or weight gain of 2-3 pounds. 6. CHF discussed and how to manage it home. CONDITION: Stable. TIME SPENT: More than 30 minutes. Plan and coordination of the patient's care discussed in the presence of nurse. MATTHEW
--- NOTE | 2020-11-16 11:07 | PN ---
11/10/2020: Level 5 11/11/2020: Intermediate 11/12/2020: Intermediate 11/13/2020: Intermediate 11/14/2020: D as in discharge MTDD
--- NOTE | 2020-11-16 12:46 | DS ---
DATE OF SERVICE: 11/14/2020 FINAL DIAGNOSIS: 1. Biventricular failure 2. Cor-Pulmonale with severe chronic lung disease 3. Chronic respiratory failure 4. Acute exacerbation of COPD with possibility of pneumonitis 5. 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 Bilateral dependant leg edema also contribution of Cor-Pulmonale and CHF 7. Venous insufficiency 8. Diabetes Mellitus type 2 9. 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 Followup with Dr. Olivier/Cary Xavier APRN/Virgie Brambila APRN in the office November 19, 2020 @10:00am. CODE STATUS: Full Code MEDICATIONS AT DISCHARGE: The patient is advised to continue his Lasix and Zaroxolyn as before along with other medications like Eliquis. NEW PRESCRIPTIONS: Keflex 500mg PO three times a day for 5 days Prednisone 10mg PO twice a day for 5 days and then Prednisone 10mg PO once a day for 5 days. DIET INSTRUCTIONS: Low salt intake. DASH diet discussed ACTIVITY: Instructed to elevated the elevate the legs during the day time while sitting and at night. SMOKING: N/A EDUCATION CARRIED OUT: CHF- weigh himself everyday, more than two pounds take extra Lasix and Zaroxolyn HOSPITAL COURSE: Ramin Oneill was hospitalized through the emergency room with biventricular failure and pneumonitis. The patient was treated with IV Rocephin, Zithromax, IV Lasix, IV steroids, salts were cut down and fluids were restricted. His condition improved his +2 to +3 pitting edema subsided and was trace at the time of discharge. Kidney functions more or less stayed the same. The patient has chronic kidney disease. His chest x-ray repeat after three days showed improvement. His blood gasses were acceptable. He was explained about Prednisone and side effects like avascular necrosis of femoral heads etc. The patient's prognosis is poor considering his multiple medical problems. He was discharged home in stable condition to be followed as an outpatient. At the time of discharge he did not have any symptoms of CHF or CAD. Pneumonitis has practically and clinically had resolved. CONDITION: Stable. PROGNOSIS: Poor. TIME SPENT: More than 60 minutes. MTDD
== END 2020-11-14 13:02 | disposition home or self-care (01) | DRG 308 ==
LOC: ED 14:58 → MEDSURG A 17:48
PROVIDERS: ADMIT Internal Medicine; ATTEND Internal Medicine
DX: R00.2 Palpitations; E11.65 Type 2 diabetes mellitus with hyperglycemia; E53.8 Deficiency of other specified B group vitamins; R05 Cough; R60.0 Localized edema; I49.01 Ventricular fibrillation; R53.81 Other malaise; F03.90 Unspecified dementia, unspecified severity, without behavioral disturbance, psychotic disturbance, mood disturbance, and anxiety; I50.9 Heart failure, unspecified; M19.90 Unspecified osteoarthritis, unspecified site; J18.9 Pneumonia, unspecified organism; I10 Essential (primary) hypertension; J96.10 Chronic respiratory failure, unspecified whether with hypoxia or hypercapnia; Z20.822 Contact with and (suspected) exposure to COVID-19; R63.0 Anorexia; N18.9 Chronic kidney disease, unspecified; R06.02 Shortness of breath; R53.1 Weakness; E78.5 Hyperlipidemia, unspecified

== ENCOUNTER 2020-11-16 22:19 | Inpatient (IN) ==
[2020-11-16] MEDS ORDERED: LASIX IVP ONE (23:14)
[2020-11-16] MEDS ORDERED: LASIX IM STA (23:21)
--- NOTE | 2020-11-16 23:21 | ED.PDOC ---
General ED Provider: Dr. DEAN FRANKLIN MD Chief Complaint: Weakness Stated Complaint: unable to walk x 2 hrs. pt fell and was unable to arise. Time Seen by Provider: 11/16/20 22:22 Mode of Arrival: Ambulance Information Source: Patient Exam Limitations: No limitations Primary Care Provider: SPARKLE MART Nursing and Triage Documentation Reviewed and Agree: Yes Does patient meet sepsis criteria?: No System Inflammatory Response Syndrome: Not Applicable Sepsis Protocol: For patient's 13 years and over: Temp is 96.8 and below OR 101 and greater Pulse >90 BPM Resp >20/minute Acutely Altered Mental Status Are patient's symptoms suggestive of a new infection, such as: -Pneumonia -Skin, Soft Tissue -Endocarditis -UTI -Bone, Joint Infection -Implantable Device -Acute Abdominal Infection -Wound Infection -Meningitis -Blood Stream Catheter Infection -Unknown Neurological Complaint Exam Weakness Complaint/Exam Last Known Well: 2 hrs ago. Onset: Sudden Duration: 2 hrs Symptoms Are: Still present Timing: Constant Episodes Lasting: Hours Initial Severity: Moderate Current Severity: Moderate Character: Reports Weak (legs were swollen and weak) Aggravating: Reports None Alleviating: Reports None Associated Signs and Symptoms: Reports Unsteady gait Cardiac Risk Factors: Reports Hypertension JVD Present: No Glascow Coma Scale (see protocol): 15 Gag Reflex Present: Yes Focal Weakness: Present None Focal Sensory Loss: Present None Gait: Unable Differential Diagnoses: Dysrhythmia, BPPV, Hypovolemia and Metabolic abnormalities Review of Systems Review Of Systems Constitutional: Reports No symptoms Eyes: Reports No symptoms Ears, Nose, Mouth, Throat: Reports No symptoms Respiratory: Reports No symptoms Cardiac: Reports Irregular heart rate GI: Reports No symptoms : Reports No symptoms Musculoskeletal: Reports No symptoms and Other (leg swelling, leg weakness) Skin: Reports No symptoms Neurological: Reports Weakness Endocrine: Reports No symptoms Hematologic/Lymphatic: Reports No symptoms All Other Systems: Reviewed and Negative [facility] Medical History A-fib Brain bleed Chronic bronchitis with COPD (chronic obstructive pulmonary disease) Chronic kidney disease (CKD) COPD (chronic obstructive pulmonary disease) Dementia Diabetes Dyslipidemia Hypertension Hypokalemia Hypothyroid Lumbar radiculopathy Osteoarthritis Peripheral vascular disease Sciatica Family History FATHER Heart attack Mother Diabetes Social History Smoking and tobacco status: Never smoker History of recent travel: No Surgical History H/O hernia repair Status post left foot surgery Physical Exam Physical Exam Appearance: Reports No pain distress and Obese Ill-appearing: None Pain Distress: None Eyes: Reports ELIZA, EOMI and Conjunctiva clear ENT: Reports Ears normal, Nose normal and Oropharynx normal Neck: Supple Respiratory: Reports Airway patent, Breath sounds equal, Crackles and Rhonchi; Denies Breath sounds clear Cardiovascular: Reports RRR, Pulses normal, No rub, No murmur and Irregular rhythm GI/: Reports Soft, Nontender, No masses, Bowel sounds normal and No Organomegaly Musculoskeletal: Reports Normal strength, ROM intact, No calf tenderness and Edema Skin: Reports Warm, Dry and Normal color Neurological: Reports Sensation intact, Motor intact, Reflexes intact, Cranial nerves intact, Alert, Oriented and Other (hearing impaired.) Psychiatric: Reports Affect appropriate and Mood appropriate Interpretation Radiology Interpretation Radiology Interpretation By: Radiologist Exam Interpreted: CT Scan Re-Evaluation Re-Evaluation Time of Re-Evaluation: 23:39 Status: Unchanged Vital Signs Stable: Yes Pain Level: 0 Appearance: NAD Lungs: Clear Skin: Warm and Dry Neuro: Alert and Oriented X3 CV: RRR Critical Care Note Critical Care Note Total Critical Care Time (mins): 30 Course Course Hematology/Chemistry: 11/16/20 23:25 11/16/20 23:25 Orders, Labs, Meds: Lab Review 11/16/20 11/16/20 11/16/20 23:25 23:25 23:25 WBC 9.87 RBC 4.48 L Hgb 12.6 L Hct 38.5 L MCV 85.9 MCH 28.1 MCHC 32.7 RDW Coeff of Marek 16.6 H Plt Count 98 L Neutrophils % (Manual) 92.0 H Lymphocytes % (Manual) 2.0 L Monocytes % (Manual) 6.0 Anisocytosis Not present Puncture Site Base Excess O2 Saturation ABG pH ABG pCO2 ABG pO2 ABG HCO3 ABG Total CO2 Storm Test Hemoglobin Oxyhemoglobin Carboxyhemoglobin Total Hemoglobin O2 Delivery Device Oxygen Liter Flow FiO2 % Sodium 134.3 L Potassium 3.90 Chloride 87.0 L Carbon Dioxide 41.2 H* Anion Gap 10.00 BUN 54.4 H Creatinine 1.40 H Estimated GFR (MDRD) 48.00 BUN/Creatinine Ratio 38.85 Glucose 301.7 H Calcium 8.90 Total Bilirubin 1.04 AST 42.5 ALT 32.9 Alkaline Phosphatase 83.6 Total Creatine Kinase 35.2 L Troponin I 0.055 Total Protein 6.24 L Albumin 3.30 L Globulin 2.94 Albumin/Globulin Ratio 1.12 Urine Color Urine Clarity Urine pH Ur Specific [place] Urine Protein Urine Glucose (UA) Urine Ketones Urine Blood Urine Nitrite Urine Bilirubin Urine Urobilinogen Ur Leukocyte Esterase Urine Microscopic RBC Urine Microscopic WBC Ur Squamous Epith Cells Urine Yeast 11/16/20 11/17/20 11/17/20 23:37 00:27 01:10 WBC RBC Hgb Hct MCV MCH MCHC RDW Coeff of Marek Plt Count Neutrophils % (Manual) Lymphocytes % (Manual) Monocytes % (Manual) Anisocytosis Puncture Site [place] Base Excess 22.8 H O2 Saturation 95.9 ABG pH 7.54 H* ABG pCO2 53.0 H ABG pO2 71.0 L ABG HCO3 45.3 H ABG Total CO2 46.9 H Storm Test + Hemoglobin 0.7 Oxyhemoglobin 93.2 L Carboxyhemoglobin 0.8 Total Hemoglobin 13.9 O2 Delivery Device Nc Oxygen Liter Flow 3.00 FiO2 % 32.0 Sodium Potassium Chloride Carbon Dioxide Anion Gap BUN Creatinine Estimated GFR (MDRD) BUN/Creatinine Ratio Glucose Calcium Total Bilirubin AST ALT Alkaline Phosphatase Total Creatine Kinase Troponin I 0.061 Total Protein Albumin Globulin Albumin/Globulin Ratio Urine Color Yellow Urine Clarity Clear Urine pH 6.0 Ur Specific [place] 1.020 Urine Protein Trace H Urine Glucose (UA) 2+ H Urine Ketones Negative Urine Blood Trace-intact H Urine Nitrite Negative Urine Bilirubin Negative Urine Urobilinogen 0.2 Ur Leukocyte Esterase 1+ H Urine Microscopic RBC 2-5 Urine Microscopic WBC 0-2 Ur Squamous Epith Cells Not present Urine Yeast Trace Orders Category Date Time Status ABG DRAW REQUEST Stat CARDIO 11/17/20 00:27 Completed EKG-(ED ONLY) Stat CARDIO 11/16/20 23:14 Completed EKG-(IP & OP ONLY) 0600 CARDIO 11/17/20 06:00 Ordered EKG-(IP & OP ONLY) Routine CARDIO 11/17/20 02:06 Ordered METERED DOSE INHALATION Routine CARDIO 11/17/20 01:45 Ordered METERED DOSE INHALATION Routine CARDIO 11/17/20 02:23 Ordered OXYGEN Routine CARDIO 11/17/20 02:06 Ordered SPUTUM INDUCTION PRN CARDIO 11/17/20 02:15 Ordered ACTIVITY .Up With Assistance CARE 11/17/20 02:05 Active BLOOD GLUCOSE MONITORING Q4HR CARE 11/17/20 02:20 Active INTAKE & OUTPUT Q8HR CARE 11/17/20 02:06 Active REMINDER: Notify Provider if temp >101.5 PRN CARE 11/17/20 02:06 Active REMINDER:Breath Sounds&Sputum Production BID CARE 11/17/20 02:06 Active REMINDER:Notify Provider Pulse<60 or>130 PRN CARE 11/17/20 02:06 Active REMINDER:Notify if BP<90/60 or >170/110 PRN CARE 11/17/20 02:06 Active VITAL SIGNS Q4HR CARE 11/17/20 02:06 Active REGULAR DIET DIETARY 11/17/20 Breakfast Ordered ED IV/MEDIPORT/POWERPORT .ONCE EMERGENCY 11/16/20 23:14 Active ABG COOX PRN LAB 11/17/20 02:15 Ordered ABG COOX Stat LAB 11/17/20 00:27 Completed BLOOD CULTURE (ED ONLY) Stat LAB 11/17/20 02:10 Received C-REACTIVE PROTEIN 0600 LAB 11/17/20 06:00 Ordered CBC W/ AUTO DIFF DAILY@0600 LAB 11/17/20 06:00 Ordered CBC W/ AUTO DIFF Stat LAB 11/16/20 23:25 Completed COMPREHENSIVE METABOLIC PANEL DAILY@0600 LAB 11/17/20 06:00 Ordered COMPREHENSIVE METABOLIC PANEL Stat LAB 11/16/20 23:25 Completed CREATINE KINASE Stat LAB 11/16/20 23:25 Completed FUNGAL CULTURE Stat LAB 11/17/20 02:06 Ordered LACTIC ACID 0600 LAB 11/17/20 06:00 Ordered MANUAL DIFFERENTIAL Stat LAB 11/16/20 23:25 Completed NT-PROBNP Stat LAB 11/17/20 Ordered PROCALCITONIN 0600 LAB 11/17/20 06:00 Ordered RESPIRATORY PANEL 2.1 (PCR) Stat LAB 11/17/20 02:00 Received SPUTUM CULTURE Stat LAB 11/17/20 02:06 Uncollected TROPONIN I Stat LAB 11/16/20 23:25 Completed TROPONIN I Stat LAB 11/17/20 01:10 Completed URINALYSIS C & S IF INDICATED Stat LAB 11/16/20 23:37 Completed 0.9 % Sodium Chloride [Saline Flush] MEDS 11/16/20 23:14 Active 1 syr IVF PRN PRN Albuterol Inhaler(with Spacer) [Ventolin Hfa (Per Puff- MEDS 11/17/20 01:43 Discontinued with Spacer)] 2 puff IH ONCE STA Albuterol Inhaler(with Spacer) [Ventolin Hfa (Per Puff- MEDS 11/17/20 02:30 Active with Spacer)] 2 puff IH Q6H Apixaban [Eliquis] MEDS 11/17/20 09:00 Ordered 2.5 mg PO BID Carvedilol [Coreg] MEDS 11/17/20 09:00 Active 3.125 mg PO BID Ceftriaxone 1 gm Vial [Rocephin 1 gm Vial] MEDS 11/17/20 00:32 Discontinued 1 gm IM ONCE STA Cholecalciferol (Vitamin D3) [Vitamin D] MEDS 11/17/20 09:00 Active 5,000 unit PO DAILY Diltiazem HCl [Cardizem] MEDS 11/17/20 09:00 Ordered 90 mg PO BID Duloxetine HCl [Cymbalta] MEDS 11/17/20 09:00 Active 60 mg PO DAILY Famotidine [Pepcid] MEDS 11/17/20 09:00 Active 20 mg PO DAILY Furosemide [Lasix] MEDS 11/17/20 06:30 Active 40 mg IVP BID@0630,1700 Furosemide [Lasix] MEDS 11/16/20 23:21 Discontinued 80 mg IM ONCE STA Insulin Regular, Human [Humulin R] MEDS 11/17/20 03:00 Active 3 - 20 unit SUBCUT PRN PRN Insulin Regular, Human [Humulin R] MEDS 11/17/20 00:27 Discontinued 5 unit SUBCUT ONCE ONE Ipratropium Inhaler(Spacer) [Atrovent Hfa Inhaler (Per MEDS 11/17/20 06:00 Active Puff-with Spacer)] 2 puff IH RTQ6H Levofloxacin/D5w [Levaquin 750 mg/150 ml D5w] MEDS 11/17/20 04:00 Active 750 mg in 150 ml IV DAILY Lidocaine HCl/Pf [Lidocaine HCl 1% Sdv] MEDS 11/17/20 00:32 Discontinued 2.1 ml IM ONCE STA Methylprednisolone Sod Succ/Pf [Solu-Medrol 125 mg] MEDS 11/17/20 01:43 Discontinued 125 mg IVP ONCE STA Methylprednisolone Sod Succ/Pf [Solu-Medrol 125 mg] MEDS 11/17/20 08:00 Active 125 mg IVP Q6H Potassium Chloride [K-Dur] MEDS 11/17/20 09:00 Ordered 20 meq PO TID Simvastatin [Zocor] MEDS 11/17/20 21:00 Active 5 mg PO BEDTIME Sitagliptin Phosphate [Januvia] MEDS 11/17/20 09:00 Ordered 50 mg PO DAILY Triamcinolone Acetonide [Kenalog 0.1%] MEDS 11/17/20 09:00 Active 1 applic TP BID levothyroxine [Synthroid] MEDS 11/17/20 09:00 Ordered 125 mcg PO DAILY metronidazole [MetroCream] MEDS 11/17/20 09:00 Ordered 1 applic TP BID zinc sulfate MEDS 11/17/20 09:00 Ordered 220 mg PO DAILY CHEST, 1V AP ONLY Stat RADS 11/16/20 23:[address] HEAD W/O CONTRAST Stat RADS 11/16/20 23:14 Completed Medications Generic Name Dose Route Start Last Admin Trade Name Freq PRN Reason Stop Dose Admin Albuterol Sulfate 2 puff 11/17/20 02:30 Albuterol Sulfate (Ventolin Hfa) 18 Gm 1 Puff With Spacer IH Q6H [facility] Apixaban 2.5 mg 11/17/20 09:00 Apixaban 5 Mg Tab PO BID [facility] Carvedilol 3.125 mg 11/17/20 09:00 Carvedilol 3.125 Mg Tablet PO BID [facility] Cholecalciferol 5,000 unit 11/17/20 09:00 Cholecalciferol (Vitamin D3) 1,000 Unit (25 Mcg) Tablet PO DAILY [facility] Diltiazem HCl 90 mg 11/17/20 09:00 Diltiazem Hcl 60 Mg Tablet PO BID [facility] Duloxetine HCl 60 mg 11/17/20 09:00 Duloxetine Hcl 30 Mg Capsule.Dr PO DAILY [facility] Famotidine 20 mg 11/17/20 09:00 Famotidine 20 Mg Tablet PO DAILY [facility] Furosemide 40 mg 11/17/20 06:30 Furosemide Inj 40 Mg/4 Ml Vial IVP BID@0630,1700 [facility] Levofloxacin/Dextrose 750 mg in 150 mls @ 100 mls/hr 11/17/20 04:00 Levaquin 750 Mg/150 Ml D5w IV 11/20/20 03:59 DAILY [facility] Insulin Human Regular 3 - 20 unit 11/17/20 03:00 Insulin Regular, Human 100 Unit/Ml SUBCUT PRN PRN BLOOD GLUCOSE/SLIDING SCALE Protocol Ipratropium [place] 2 puff 11/17/20 06:00 Ipratropium [place] 12.9 Gm Hfa Inhaler Per Puff With Spacer IH RTQ6H [facility] Methylprednisolone Sodium Succinate 125 mg 11/17/20 08:00 Methylprednisolone Sod Succ/Pf 125 Mg/2 Ml Vial IVP Q6H [facility] Non-Formulary Medication 125 mcg 11/17/20 09:00 Levothyroxine [Synthroid] PO DAILY [facility] Non-Formulary Medication 1 applic 11/17/20 09:00 Metronidazole [Metrocream] TP BID [facility] Non-Formulary Medication 220 mg 11/17/20 09:00 Zinc Sulfate PO DAILY [facility] Potassium Chloride 20 meq 11/17/20 09:00 Potassium Chloride 20 Meq Tab PO TID [facility] Simvastatin 5 mg 11/17/20 21:00 Simvastatin 10 Mg Tablet PO BEDTIME [facility] Sitagliptin Phosphate 50 mg 11/17/20 09:00 Sitagliptin Phosphate 50 Mg Tablet PO DAILY [facility] Sodium Chloride 1 syr 11/16/20 23:14 0.9% Sodium Chloride 10 Ml Disp.Syrin IVF PRN PRN To flush IV Triamcinolone Acetonide 1 applic 11/17/20 09:00 Triamcinolone Acetonide 80 Gm Cream TP BID [facility] Discontinued Medications Generic Name Dose Route Start Last Admin Trade Name Freq PRN Reason Stop Dose Admin Albuterol Sulfate 2 puff 11/17/20 01:43 Albuterol Sulfate (Ventolin Hfa) 18 Gm 1 Puff With Spacer IH 11/17/20 01:44 ONCE STA Ceftriaxone Sodium 1 gm 11/17/20 00:32 11/17/20 00:47 Ceftriaxone 1 Gm Vial 1 Gm Vial IM 11/17/20 00:33 1 gm ONCE STA Administration Furosemide 80 mg 11/16/20 23:21 11/16/20 23:53 Furosemide Inj 40 Mg/4 Ml Vial IM 11/16/20 23:22 80 mg ONCE STA Administration Insulin Human Regular 5 unit 11/17/20 00:27 11/17/20 00:46 Insulin Regular, Human 100 Unit/Ml (3ml) Vial SUBCUT 11/17/20 00:28 5 unit ONCE ONE Administration Lidocaine HCl 2.1 ml 11/17/20 00:32 11/17/20 00:47 Lidocaine Hcl/Pf 1% 5 Ml Vial IM 11/17/20 00:33 2.1 ml ONCE STA Administration Methylprednisolone Sodium Succinate 125 mg 11/17/20 01:43 11/17/20 02:17 Methylprednisolone Sod Succ/Pf 125 Mg/2 Ml Vial IVP 11/17/20 01:44 125 mg ONCE STA Administration Vital Signs: Temp Pulse Resp BP Pulse Ox 11/16/20 22:20 96.8 F L 96 H 18 136/87 100 Discharge Plan Discharge Patient Disposition: ADMITTED INPATIENT Discharge Problem: Bilateral pneumonia, Acute UTI (urinary tract infection), Episode of generalized weakness Prescriptions: No Action levothyroxine [Synthroid] 125 MCG tablet 125 mcg PO DAILY RF: 0 simvastatin 5 MG tablet 5 mg PO BEDTIME RF: 0 hydrocodone-acetaminophen 1 EACH tablet 7.5 mg PO Q6H PRN (Reason: pain) RF: 0 Lantus U-100 Insulin 1 UNIT solution 20 units subcut BEDTIME RF: 0 metronidazole [MetroCream] 0.75 % Cream 1 applic TOPICAL BID RF: 0 triamcinolone acetonide [Kenalog] 0.1 % Cream 1 applic TOPICAL BID RF: 0 zinc sulfate 220 mg Capsule 220 mg PO DAILY RF: 0 carvedilol [Coreg] 3.125 mg Tablet 3.125 mg PO BID RF: 0 famotidine [Pepcid] 20 mg Tablet 20 mg PO DAILY RF: 0 cholecalciferol (vitamin D3) [Vitamin D3] 25 mcg (1,000 unit) Tablet 5,000 unit PO DAILY RF: 0 Januvia 50 mg Tablet 50 mg PO DAILY RF: 0 potassium chloride [K-Tab] 20 mEq Tablet Extended Release 20 meq PO TID Qty: 90 RF: 3 Eliquis 2.5 MG tablet 2.5 mg PO BID RF: 0 bumetanide 1 MG tablet 2 mg PO DAILY RF: 0 diltiazem HCl [Cardizem] 120 MG tablet 90 mg PO BID RF: 0 metolazone 2.5 MG tablet 2.5 mg PO WESA RF: 0 prednisone 10 mg Tablet 10 mg PO BID 5 Days Qty: 60 RF: 0 cephalexin 500 mg Tablet 500 mg PO TID 5 Days Qty: 90 RF: 0 prednisone 10 mg Tablet 10 mg PO DAILY 5 Days Qty: 30 RF: 0 duloxetine [Cymbalta] 60 mg Capsule,Delayed Release(Dr/Ec) 60 mg PO DAILY RF: 0 ED Provider: DEAN FRANKLIN Condition: Serious Physician Progress Note: []Pt was d/w Dr Mart and admitted: see orders.
[2020-11-16 23:29] LABS: HEMATOCRIT 38.5 % (42.0-52.0); HEMOGLOBIN 12.6 g/dl (14.0-18.0); MEAN CORPUSCULAR HEMOGLOBIN 28.1 pg (27.0-31.0); MEAN CORPUSCULAR HGB CONC 32.7 (31.8-35.4); MEAN CORPUSCULAR VOLUME 85.9 fl (80.0-94.0); PLATELET COUNT 98 10^3/uL (140-440); RDW COEFFICIENT OF VARIATION 16.6 % (11.6-14.8); RED BLOOD COUNT 4.48 10^6/ul (4.70-6.10); WHITE BLOOD COUNT 9.87 K/ul (4.2-10.2)
[2020-11-16 23:38] LABS: ANISOCYTOSIS NOT PRESENT (NOT PRESENT)
[2020-11-16 23:42] LABS: ALANINE AMINOTRANSFERASE 32.9 U/L (0-50); ALBUMIN 3.3 g/dL (3.5-5.0); ALKALINE PHOSPHATASE 83.6 U/L (56-119); ASPARTATE AMINO TRANSFERASE 42.5 U/L (17-59); BILIRUBIN,TOTAL 1.04 mg/dL (0.2-1.3); BLOOD UREA NITROGEN 54.4 mg/dL (9-20); CALCIUM 8.9 mg/dL (8.4-10.2); CREATININE 1.4 mg/dL (0.60-1.10); GLUCOSE 301.7 mg/dL (74-106); POTASSIUM 3.9 mmol/L (3.5-5.1); SODIUM 134.3 mmol/L (134.5-145); TOTAL PROTEIN 6.24 g/dL (6.3-8.2)
[2020-11-16 23:44] LABS: BILIRUBIN,URINE Negative (NEGATIVE); CLARITY,URINE Clear (CLEAR); COLOR,URINE Yellow (YELLOW); GLUCOSE, URINE (UA) 2+ (NEGATIVE); KETONES,URINE Negative (NEGATIVE); LEUKOCYTE ESTERASE ,URINE 1+ (NEGATIVE); NITRITE,URINE Negative (NEGATIVE); PROTEIN,URINE Trace (NEGATIVE); URINE, BLOOD Trace-intact (NEGATIVE); UROBILINOGEN,URINE 0.2 (0.2)
[2020-11-16 23:46] LABS: SQUAMOUS EPITHELIAL CELL,UR NOT PRESENT (0-5)
[2020-11-16 23:50] LABS: URINE WBC, MICROSCOPIC 0-2 (0-2); YEAST,URINE TRACE (NOT PRESENT)
[2020-11-16 23:52] LABS: CARBON DIOXIDE 41.2 mmol/L (22-30.0)
[2020-11-16 23:54] LABS: TROPONIN I 0.055 ng/ml (0.0000-0.120)
[2020-11-17] MEDS ORDERED: HUMULIN R SUBCUT ONE (00:27)
[2020-11-17] MEDS ORDERED: LIDOCAINE HCL 1% SDV IM STA (00:32)
[2020-11-17] MEDS ORDERED: ROCEPHIN 1 GM VIAL IM STA (00:32)
--- NOTE | 2020-11-17 00:34 | CT ---
EXAM: CT scan brain without contrast HISTORY: Weakness COMPARISON: CT scan brain 07/19/2019 FINDINGS: Contiguous axial images obtained from skull base to the convexities without contrast utili zing 5-mm collimation. Sagittal and coronal reconstructions were imaged and reviewed.. The ventricl es and CSF spaces are prominent compatible with age appropriate atrophy. Moderate periventricular hy podensity noted compatible with chronic microvascular disease. There is no acute intracranial findin gs. Atherosclerotic changes are seen involving the vertebral and cavernous internal carotid arteries . Visualized paranasal sinuses mastoid air cells are clear. The calvarium is intact. IMPRESSION: No acute intracranial findings. All CT scans are performed using dose optimization techniques as appropriate to the performed exam an d include at least one of the following: Automated exposure control, adjustment of the mA and/or kV according t o size, and the use of iterative reconstruction technique.
--- NOTE | 2020-11-17 00:42 | DI ---
EXAM: AP single view of the chest. HISTORY: Weakness. FINDINGS: The bones are unremarkable. The cardiac silhouette is enlarged. The pulmonary vasculature is within normal limits. There are small bilateral pleural effusions. There are bibasilar infiltra karrie and consolidation, consistent with pneumonia. Impression: Bibasilar infiltrates and consolidation, consistent with pneumonia. Small bilateral pleural effusions. Cardiomegaly.
[2020-11-17 01:10] LABS: ABG PH 7.54 (7.35-7.45)
[2020-11-17] MEDS ORDERED: LEVAQUIN 500 MG/100 ML D5W 500 MG/100 ML BAG IV STA (01:35)
[2020-11-17] MEDS: VENTOLIN HFA (PER PUFF-WITH SPACER) IH STA ×2 (01:43→06:52)
[2020-11-17] MEDS ORDERED: SOLU-MEDROL 125 MG IVP STA (01:43)
[2020-11-17] MEDS ORDERED: VENTOLIN HFA (PER PUFF-WITH SPACER) IH SCH (02:30)
[2020-11-17] MEDS ORDERED: HUMULIN R SUBCUT PRN (03:00)
[2020-11-17] MEDS ORDERED: NITROSTAT SL PRN (03:59)
[2020-11-17] MEDS ORDERED: TYLENOL PO PRN (03:59)
[2020-11-17] MEDS ORDERED: ATROPINE SULFATE PFS IVP PRN (03:59)
[2020-11-17] MEDS: LEVAQUIN 750 MG/150 ML D5W 750 MG/150 ML BAG IV SCH (04:40)
[2020-11-17 04:49] VITALS: BMI 26.6
[2020-11-17] MEDS: SYNTHROID PO SCH ×2 (05:58)
[2020-11-17] MEDS: HUMULIN R SUBCUT PRN ×4 (06:10→20:36)
[2020-11-17] MEDS ORDERED: LASIX IVP SCH (06:30)
[2020-11-17] MEDS: ATROVENT HFA INHALER (PER PUFF-WITH SPACER) IH SCH ×4 (06:34→22:29)
[2020-11-17 08:02] LABS: BASOPHILS % (AUTO) 0.1 % (0.0-3.0); HEMATOCRIT 45.9 % (42.0-52.0); HEMOGLOBIN 15.1 g/dl (14.0-18.0); IMMATURE GRANULOCYTE # (AUTO) 0.1 (0.0-1.0); IMMATURE GRANULOCYTE % (AUTO) 0.8 % (0.0-5.0); LYMPHOCYTES # (AUTO) 0.2 K/uL (0.60-3.4); LYMPHOCYTES % (AUTO) 3.2 (10.0-50.0); MEAN CORPUSCULAR HEMOGLOBIN 28.1 pg (27.0-31.0); MEAN CORPUSCULAR HGB CONC 32.9 (31.8-35.4); MEAN CORPUSCULAR VOLUME 85.5 fl (80.0-94.0); MONOCYTES # (AUTO) 0.2 K/uL (0.4-2.0); MONOCYTES % (AUTO) 3.2 (0-10); NEUTROPHILS # (AUTO) 6.7 K/ul (2.0-6.9); NEUTROPHILS % (AUTO) 92.7 % (42.2-75.2); PLATELET COUNT 98 10^3/uL (140-440); RDW COEFFICIENT OF VARIATION 16.9 % (11.6-14.8); RED BLOOD COUNT 5.37 10^6/ul (4.70-6.10); WHITE BLOOD COUNT 7.18 K/ul (4.2-10.2)
[2020-11-17 08:09] LABS: ALANINE AMINOTRANSFERASE 39.1 U/L (0-50); ALBUMIN 4.03 g/dL (3.5-5.0); ALKALINE PHOSPHATASE 87.5 U/L (56-119); ASPARTATE AMINO TRANSFERASE 42.8 U/L (17-59); BILIRUBIN,TOTAL 1.5 mg/dL (0.2-1.3); BLOOD UREA NITROGEN 48.2 mg/dL (9-20); CALCIUM 9.31 mg/dL (8.4-10.2); CHLORIDE 82.4 mmol/L (98-107); CREATINE KINASE 34.7 U/L (55-170); CREATININE 1.36 mg/dL (0.60-1.10); GLUCOSE 196.6 mg/dL (74-106); POTASSIUM 3.81 mmol/L (3.5-5.1); SODIUM 137.6 mmol/L (134.5-145); TOTAL PROTEIN 7.84 g/dL (6.3-8.2)
[2020-11-17 08:21] LABS: TROPONIN I 0.064 ng/ml (0.0000-0.120)
[2020-11-17 08:25] LABS: CARBON DIOXIDE 47.7 mmol/L (22-30.0)
--- NOTE | 2020-11-17 08:43 | PCM.PROG ---
Attending Provider: ATTENDING PROVIDER: Dr. SPARKLE MART This patient is seen with Cary Xavier, Nurse Practitioner. DATE OF SERVICE: 11/17/20 SUBJECTIVE: This 85 year old /WHITE M was hospitalized 11/17/20. The patient is resting comfortably. Denies shortness of breath, denies fall. States his legs wouldn't work. He has generalized weakness. Kidney function has increased. Chest x-ray slightly changed with abnormal U/A. No fever. REVIEW OF SYSTEMS: CONSTITUTIONAL: No night sweats. No fatigue, malaise, lethargy. No fever or chills. Weakness. HEENT: Eyes: No visual changes. No eye pain. No eye discharge. ENT: No runny nose. No epistaxis. No sinus pain. No odynophagia. No congestion. RESPIRATORY: No cough, no congestion. No hemoptysis. No shortness of breath. CARDIOVASCULAR: No angina symptoms. No CHF symptoms. No atypical chest pain for CAD. No palpitations. No orthopnea.. GASTROINTESTINAL: No abdominal pain. No nausea or vomiting. No diarrhea or constipation. No hematemesis. No hematochezia. GENITOURINARY: No urgency. No frequency. No dysuria. No hematuria. No obstructive symptoms. No discharge. No pain. No significant abnormal bleeding. MUSCULOSKELETAL: No musculoskeletal pain; no joint swelling. NEUROLOGICAL: Awake, alert, oriented to time, place and person. No headache. No neck pain. No syncope. No seizures. No dizziness. PSYCHIATRIC: Not anxious. No depression. No suicidal thoughts. No homicidal thoughts. SKIN: No rash. No lesions. No wounds. ENDOCRINE: No unexplained weight loss. No weight gain. HEMATOLOGIC/LYMPHATIC: No anemia. No purpura. No petechiae. No prolonged or excessive bleeding. No palpable lymph nodes. PHYSICAL EXAMINATION: GENERAL: The patient is awake, alert and oriented, lying in bed in no distress. VITAL SIGNS: Temperature 96.9 F, Pulse 87, Respiratory Rate 18, BP 136/92, Pulse Ox 99% HEENT: Head normocephalic, atraumatic. Eyes: Extraocular muscles are intact. Pupils are equal, round and reactive to light and accommodation. Ears: No lesions. Nose appeared normal. Throat: No exudate or erythema. NECK: Supple. No JVD, no carotid bruit. No lymphadenopathy or thyromegaly. LUNGS: Diminished breath sounds. Clear to auscultation. Percussion note normal. Chest symmetrical. HEART: Irregular heart rate. S1, S2, no S3. No murmurs. No cyanosis or clubbing. No ascites. Pulses: Dorsalis pedis and posterior tibial pulses +1 to +2 both sides. ABDOMEN: Soft. Non-tender. Bowel sounds active. No CVA tenderness. No mass felt. EXTREMITIES: No edema. Full range of motion of all extremities, equal. NEUROLOGIC: No focal deficit. Cranial nerves II through XII are grossly intact. No headache. No double vision. SKIN: Not dry. Intact. Turgor-normal. LYMPHATIC: No palpable lymph nodes/no lymphedema. MUSCULOSKELETAL: Normal joints with no swelling. Muscle tone is normal. LAB REVIEW: 11/16/20 23:25 11/16/20 23:25 11/17/20 02:10: Lactic Acid 1.41 11/17/20 02:00: Adenovirus (PCR) Not detected, B. pertussis DNA (PCR) Not detected, B.parapertussis DNA PCR Not detected, C. pneumoniae DNA (PCR) Not detected, Coronavirus OC43 (PCR) Not detected, Coronavirus HKU1 (PCR) Not detected, Coronavirus 229E (PCR) Not detected, Coronavirus NL63 (PCR) Not detected, Human Metapneumovir PCR Not detected, Influenza Type A (PCR) Not detected, Influenza B (RT-PCR) Not detected, M. pneumoniae (PCR) Not detected, Parainfluenza 1 (PCR) Not detected, Parainfluenza 2 (PCR) Not detected, Parainfluenza 3 (PCR) Not detected, Parainfluenza 4 (PCR) Not detected, RSV (PCR) Not detected, Entero/Rhino (PCR) Not detected, SARS-CoV-2 (PCR) Not detected 11/17/20 01:10: NT-Pro-B Natriuret Pep 4520.000 H 11/17/20 01:10: Procalcitonin < 0.05 11/17/20 01:10: Troponin I 0.061 11/17/20 00:27: Puncture Site [place], Base Excess 22.8 H, O2 Saturation 95.9, ABG pH 7.54 H*, ABG pCO2 53.0 H, ABG pO2 71.0 L, ABG HCO3 45.3 H, ABG Total CO2 46.9 H, Storm Test +, Hemoglobin 0.7, Oxyhemoglobin 93.2 L, Carboxyhemoglobin 0.8, Total Hemoglobin 13.9, O2 Delivery Device Nc, Oxygen Liter Flow 3.00, FiO2 % 32.0 11/16/20 23:37: Urine Color Yellow, Urine Clarity Clear, Urine pH 6.0, Ur Specific [place] 1.020, Urine Protein Trace H, Urine Glucose (UA) 2+ H, Urine Ketones Negative, Urine Blood Trace-intact H, Urine Nitrite Negative, Urine Bilirubin Negative, Urine Urobilinogen 0.2, Ur Leukocyte Esterase 1+ H, Urine Microscopic RBC 2-5, Urine Microscopic WBC 0-2, Ur Squamous Epith Cells Not pre sent, Urine Yeast Trace 11/16/20 23:25: Total Creatine Kinase 35.2 L 11/16/20 23:25: Sodium 134.3 L, Potassium 3.90, Chloride 87.0 L, Carbon Dioxide 41.2 H*, Anion Gap 10.00, BUN 54.4 H, Creatinine 1.40 H, Estimated GFR (MDRD) 48.00, BUN/Creatinine Ratio 38.85, Glucose 301.7 H, Calcium 8.90, Total Bilirubin 1.04, AST 42.5, ALT 32.9, Alkaline Phosphatase 83.6, Troponin I 0.055, Total Protein 6.24 L, Albumin 3.30 L, Globulin 2.94, Albumin/Globulin Ratio 1.12 11/16/20 23:25: WBC 9.87, RBC 4.48 L, Hgb 12.6 L, Hct 38.5 L, MCV 85.9, MCH 28.1, MCHC 32.7, RDW Coeff of Marek 16.6 H, Plt Count 98 L, Neutrophils % (Manual) 92.0 H, Lymphocytes % (Manual) 2.0 L, Monocytes % (Manual) 6.0, Anisocytosis Not present ASSESSMENT: Please see below. 1. Renal Azotemia 2. Generalized weakness 3. Possible UTI, culture pending. 4. Bibasilar pneumonia 5. COPD 6. Chronic respiratory failure 7. Atrial fibrillation PLAN: 1. Urine for culture 2. Discontinue IV Lasix 3. Normal saline at 50cc times one liter. Plan and coordination of the patient's care discussed in the presence of Drive Worker and nurse. SCRIBED BY: BRYAN BRANHAM Daily Sales Audit Clerk scribed while in presence of service performed by Dr. Mart/Cary Xavier APRN on 11/17/20 ([id number])
[2020-11-17] MEDS ORDERED: KENALOG 0.1% TP SCH (09:00)
[2020-11-17 09:03] LABS: ABG PH 7.55 (7.35-7.45)
[2020-11-17] MEDS ORDERED: SODIUM CHLORIDE 1,000 ML IV SCH (09:30)
[2020-11-17] MEDS: JANUVIA PO SCH (09:55)
[2020-11-17] MEDS: CARDIZEM PO SCH ×2 (09:55→20:35)
[2020-11-17] MEDS: ZINC-220 PO SCH (09:56)
[2020-11-17] MEDS: K-DUR PO SCH ×3 (09:56→17:09)
[2020-11-17] MEDS: COREG PO SCH ×2 (09:56→20:35)
[2020-11-17] MEDS: VITAMIN D PO SCH (09:56)
[2020-11-17] MEDS: PEPCID PO SCH (09:57)
[2020-11-17] MEDS: CYMBALTA PO SCH (09:57)
[2020-11-17] MEDS: SOLU-MEDROL 125 MG IVP SCH ×3 (09:57→20:38)
[2020-11-17] MEDS: METRONIDAZOLE 0.75% TP SCH ×2 (09:58→20:46)
[2020-11-17] MEDS: ELIQUIS PO SCH ×2 (09:58→20:35)
[2020-11-17] MEDS: VENTOLIN HFA (PER PUFF-WITH SPACER) IH SCH ×3 (11:05→22:29)
[2020-11-17] MEDS: KENALOG 0.1% TP SCH ×2 (14:13→20:40)
[2020-11-17 15:54] LABS: CREATINE KINASE 28.1 U/L (55-170)
[2020-11-17 16:07] LABS: TROPONIN I 0.062 ng/ml (0.0000-0.120)
--- NOTE | 2020-11-17 16:14 | RS.PTINEVL ---
Subjective - Patient information Date of Evaluation: 11/17/20 Date of Arrival on Unit: 11/17/20 Admitted From:: Home Diagnosis: pneumonia, UTI, difficulty walking, impaired balance Usual Living Arrangement: With Spouse Living Arrangement Comments: bedroom on 2nd floor Home Environment: House, Stairs (few), Rail Medical History: Hypertension, COPD, CHF, Arthritis, Vascular Disease Medical History Comments:: brain bleed, Afib, CKD, lumbar radiculopathy, PVD, LATEX ALLERGY?: No Surgical History Comments:: hernia repair, L foot sx Medications: see chart Subjective Information/ Patient Comments:: pt states that he is very weak. pt reports that he didn't fall, he got to the landing on the stairs and couldn't go any further and had to sit down. states she thinks he was dc too soon. She hopes pt will go to swing bed for rehab. and pt state they cannot consider moving bedroom to 1st floor. - Level of function Prior to this admission, the patient could do the following:: Partially Dependent Ambulation, Volunteer/Work Current Level of Function: Partially Dependent Current Equipment Used at Home: 02 from [employer]; cane, walker Interventions - Objective Patient Orientation: Person, Place, Time, Situation Current Interventions: IV's, Oxygen (2 liters), Telemetry Observation: pt with pitting edema BLE Range of Motion - ROM Right Upper Extremity AROM: WFL's Left Upper Extremity AROM: WFL's Right Lower Extremity AROM: WFL's Left Lower Extremity AROM: WFL's Muscle Strength - Muscle Strength Right Upper Extremity Strength: Mild Weakness (grossly 4-/5) Left Upper Extremity Strength: Mild Weakness (grossly 4-/5) Right Lower Extremity Strength: Mild Weakness (hip flex 3+/5, knee flex/ext 4- /5, ankle Df/PF 4-/5) Left Lower Extremity Strength: Mild Weakness (hip flex 3+/5, knee flex/ext 4-/5, ankle Df/PF 4-/5) Sensation - Sensation Right Upper Extremity Sensation: Intact/Normal Left Upper Extremity Sensation: Intact/Normal Right Lower Extremity Sensation: Impaired Left Lower Extremity Sensation: Impaired Comments: n/t in BLE Palpation Palpation Findings: Tenderness Comments:: tenderness to palpation BLE Balance - Sitting Balance and Reactions Static Sitting Balance: Fair Dynamic Sitting Balance: Poor Sitting Equilibrium Reactions: Delayed Left, Delayed Right Sitting Protective Reactions: Delayed Left, Delayed Right - Standing Balance and Reactions Static Standing Balance: Poor Dynamic Standing Balance: Poor Standing Equilibrium Reactions: Delayed Left, Delayed Right Standing Protective Reactions: Delayed Left, Delayed Right Functional Mobility - Bed Mobility Supine to Sit: Min Assist, 2 person assist Sit to Supine: Min Assist, 2 person assist - Transfers Sit to Stand: Min Assist, 2 person assist Stand to Sit: Min Assist, 2 person assist Comments:: pt stood and marched in place, knee bends, weight shifting, and side stepping. pt felt too weak to try to amb this pm. - Safety Awareness Safety Awareness: Fair LAURI INDEX SCORE: n/a Treatment time - Time with patient Length of Evaluation: 22 Total treatment time: 26 Patient Education - Education Patient Education: Activity Modification, Education of Plan of Care Teaching Recipient: Patient, Family Teaching Methods: Discussion Assessment - Assessment Problem List:: Decreased level of function, Requires training/education, Decreased safety/Risk of falls, Weakness, Cognitive status limits abilities Rehab Potential: Fair Further Therapy Indicated?: Yes Candidate for Swing Bed for Therapy Services?: pt may be a candidate for swing bed for therapy for therex for strengthening, balance, gait training. Evaluation Complexity: HISTORY: Medium, EXAM OF BODY SYSTEMS: Medium, CLINICAL PRESENTATION: Medium, CLINICAL DECISION MAKING: Medium Patient's Goal(s): Get stronger and be able to walk Short Term Goals GOAL #1: pt independent with rolling and scooting up in bed Goal to be met by: 11/20/20 GOAL #2: Sup to/from sit minx 1 Goal to be met by: 11/20/20 GOAL #3: Sit to/from stand min x 1 Goal to be met by: 11/20/20 GOAL #4: pt amb with rwx 50ft with O2 with min x 1. Goal to be met by: 11/20/20 [employer] Goals GOAL #1: Sup to/from sit to/from stand CGA Goal to be met by: 11/23/20 GOAL #2: pt amb 100ft with AAD CGA with no loss of balance Goal to be met by: 11/23/20 GOAL #3: pt with improved dyn stand balance fair Goal to be met by: 11/23/20 Plan Plan of Care: Therapeutic EX, Therapeutic Activity Other:: gait training Frequency of Treatment: 1-2 X day, as tolerated Duration of Treatment: 5 days Anticipated Discharge Destination: Home Treatment Diagnosis (ICD 10 Codes): impaired balance R26.81. difficulty walking R26.2. weakness M62.81 Has the Physician been added for Co-signature?: Yes
[2020-11-17] MEDS: ZOCOR PO SCH (20:35)
[2020-11-18] MEDS: SOLU-MEDROL 125 MG IVP SCH ×4 (01:54→20:36)
[2020-11-18] MEDS: ATROVENT HFA INHALER (PER PUFF-WITH SPACER) IH SCH ×4 (04:58→23:30)
[2020-11-18] MEDS: VENTOLIN HFA (PER PUFF-WITH SPACER) IH SCH ×4 (04:58→23:30)
[2020-11-18] MEDS: SYNTHROID PO SCH ×2 (05:37)
[2020-11-18 05:50] LABS: HEMATOCRIT 41.3 % (42.0-52.0); HEMOGLOBIN 13.4 g/dl (14.0-18.0); MEAN CORPUSCULAR HEMOGLOBIN 27.9 pg (27.0-31.0); MEAN CORPUSCULAR HGB CONC 32.4 (31.8-35.4); PLATELET COUNT 106 10^3/uL (140-440); RDW COEFFICIENT OF VARIATION 16.7 % (11.6-14.8); WHITE BLOOD COUNT 7.32 K/ul (4.2-10.2)
[2020-11-18 05:55] LABS: ANISOCYTOSIS NOT PRESENT (NOT PRESENT)
[2020-11-18 05:56] LABS: ALANINE AMINOTRANSFERASE 30.6 U/L (0-50); ALBUMIN 3.48 g/dL (3.5-5.0); ALKALINE PHOSPHATASE 74.7 U/L (56-119); BILIRUBIN,TOTAL 1.25 mg/dL (0.2-1.3); BLOOD UREA NITROGEN 46.6 mg/dL (9-20); CALCIUM 9.11 mg/dL (8.4-10.2); CHLORIDE 85.6 mmol/L (98-107); CREATININE 1.23 mg/dL (0.60-1.10); POTASSIUM 3.65 mmol/L (3.5-5.1); SODIUM 134.3 mmol/L (134.5-145); TOTAL PROTEIN 6.6 g/dL (6.3-8.2)
[2020-11-18 06:06] LABS: CARBON DIOXIDE 41.4 mmol/L (22-30.0)
[2020-11-18] MEDS: HUMULIN R SUBCUT PRN ×4 (06:17→20:37)
[2020-11-18] MEDS: CARDIZEM PO SCH ×2 (08:29→20:30)
[2020-11-18] MEDS: VITAMIN D PO SCH (08:29)
[2020-11-18] MEDS: KENALOG 0.1% TP SCH ×2 (08:29→20:38)
[2020-11-18] MEDS: K-DUR PO SCH ×3 (08:30→17:17)
[2020-11-18] MEDS: JANUVIA PO SCH (08:30)
[2020-11-18] MEDS: ZINC-220 PO SCH (08:30)
[2020-11-18] MEDS: CYMBALTA PO SCH (08:30)
[2020-11-18] MEDS: PEPCID PO SCH (08:30)
[2020-11-18] MEDS: COREG PO SCH ×2 (08:31→17:17)
[2020-11-18] MEDS: LEVAQUIN 750 MG/150 ML D5W 750 MG/150 ML BAG IV SCH (08:31)
[2020-11-18] MEDS: BUMEX PO SCH (08:31)
[2020-11-18] MEDS: ELIQUIS PO SCH ×2 (08:32→20:28)
[2020-11-18] MEDS: METRONIDAZOLE 0.75% TP SCH ×2 (08:32→20:53)
--- NOTE | 2020-11-18 08:54 | HP ---
DATE OF SERVICE: 11/17/2020 REASON FOR HOSPITALIZATION/HISTORY OF PRESENT ILLNESS: 85 year old white male who was at home had some generalized weakness and fatigue felt like he could not climb the stairs experiencing some shortness of breath and was brought to the ER for evaluation. The patient was recently hospitalized with biventricular failure, Cor-Pulmonale, chronic respiratory failure, COPD exacerbation. PAST MEDICAL HISTORY: Biventricular failure Chronic respiratory failure Cor-Pulmonale COPD Rheumatoid arthritis Bilateral dependant leg edema Venous insufficiency Peripheral arterial disease Diabetes Mellitus type II Dyslipidemia Atrial fibrillation Hypertension Early dementia History of hypokalemia B12 deficiency Chronic kidney disease, stage 3 Lumbar radiculopathy Pulmonary fibrosis Chronic anemia Hypertension LVH Hypothyroidism Polyarthritis Anxiety Stasis ulcer of the right great toe. PAST SURGICAL HISTORY: Inguinal hernia repair Bilateral total knee replacement Left foot ankle surgery REVIEW OF SYSTEMS: CONSTITUTIONAL: No night sweats. No fatigue, malaise, lethargy. No fever or chills. Weakness. HEENT: Eyes: No visual changes. No eye pain. No eye discharge. ENT: No runny nose. No epistaxis. No sinus pain. No sore throat. No odynophagia. No ear pain. No congestion. RESPIRATORY: Cough, no congestion. No hemoptysis. No shortness of breath. CARDIOVASCULAR: No angina symptoms. No CHF symptoms. No atypical chest pain for CAD. No palpitations. No PND. No orthopnea. GASTROINTESTINAL: No abdominal pain. No nausea or vomiting. No diarrhea or constipation. No hematemesis. No hematochezia. GENITOURINARY: No urgency. No frequency. No dysuria. No hematuria. No obstructive symptoms. No discharge. No pain. No significant abnormal bleeding. MUSCULOSKELETAL: No musculoskeletal pain. No joint swelling. No arthritis. NEUROLOGICAL: No headache. No neck pain. No syncope. No seizures. No dizziness. PSYCHIATRIC: Not anxious. No depression. No suicidal thoughts. No homicidal thoughts. SKIN: No rash. No lesions. No wounds. ENDOCRINE: No unexplained weight loss. No weight gain. HEMATOLOGIC/LYMPHATIC: No anemia. No purpura. No petechiae. No prolonged or excessive bleeding. No palpable lymph nodes. PERSONAL/FAMILY/SOCIAL HISTORY: He lives at home with his . He does require some assistance with activities of daily living. Has a history of falls. No alcohol or illicit drug use. MEDICATIONS: Synthroid 125mcg PO daily Simvastatin 5mg PO bedtime Eliquis 2.5mg PO BID Hydrocodone-Acetaminophen 7.5mg PO Q 6 hours PRN Lantus 20 units SUBCUT bedtime Bumetanide 2mg PO daily Cardizem 90mg PO BID Metolazone 2.5mg PO WESA Januvia 50mg PO DAILY Pepcid 20mg PO daily Coreg 3.125mg PO BID Vitamin D3 5000 units PO daily Zinc sulfate 220mg PO daily Kenalog 0.1% one application topically BID Metrocream 0.75% one application Topical BID K-tab 20meq PO TID Prednisone 10mg PO BID Cephalexin 500mg PO TID Prednisone 10mg PO daily Cymbalta 60mg PO daily ALLERGIES: No known allergies PHYSICAL EXAMINATION: VITAL SIGNS: Temperature 96.8, heart rate 96, respiratory rate 18, blood pressure 136/87 and pulse ox 100%. HEENT: Head normocephalic, atraumatic. Eyes: Extraocular muscles are intact. Pupils are equal, round and reactive to light and accommodation. Ears: No lesions. Nose appeared normal. Throat: No exudate or erythema. NECK: Supple. No JVD, no carotid bruit. No lymphadenopathy or thyromegaly. LUNGS: Diminished breath sounds, bilaterally. Clear to auscultation. Percussion note normal. Chest symmetrical. HEART: S1, S2, no S3. No murmur. No cyanosis or clubbing. No ascites. Pulses: Dorsalis pedis and posterior tibial pulses +1 to +2 bilaterally. ABDOMEN: Soft. Nontender. Bowel sounds active. No CVA tenderness. No mass felt. EXTREMITIES: Trace bilateral leg edema. Full range of motion of all extremities, equal. NEUROLOGIC: No focal deficit. Cranial nerves II through XII are grossly intact. No headache, no double vision or headache. SKIN: Not dry. Intact. Turgor - normal. LYMPHATIC: No palpable lymph nodes/no lymphedema. MUSCULOSKELETAL: Normal joints with no swelling. Muscle tone is normal. LABS: WBC 9.87, hgb 12.6, hct 38.5, plt count 98, sodium 134, potassium 3.9, BUN 54, creatinine 1.4, glucose 301. CO2 41.2, total CK 35, troponin 0.05, ABG on 3 liters O2 saturation of 95, pH 7.54, pCO2 53, pO2 71, bicarb 45.3. Urine shows +1 leuks, +2 glucose, trace blood. Chest x-ray shows possible bibasilar infiltrates and consolidation consistent with pneumonia. ASSESSMENT: 1. Acute pneumonitis 2. COPD 3. Generalized weakness 4. Abnormal U/A 5. Urine culture pending for possible UTI 6. Renal azotemia 7. Chronic respiratory failure with Co2 retention 8. Diabetes Mellitus type II PLAN: 1. We will admit 2. Routine telemetry orders 3. CBC and CMP daily 4. Continue home medications 5. Start on Levaquin 500mg IV daily 6. Solu-Medrol 100mg IV Q 12 hours 7. Regular diet 8. Sliding scale for insulin 9. Urine for culture and sensitivity Will follow closely. TIME SPENT: More than 70 minutes. [facility]
[2020-11-18] MEDS ORDERED: XANAX PO PRN (10:43)
--- NOTE | 2020-11-18 11:34 | PN ---
DATE OF SERVICE: 11/17/2020 SUBJECTIVE: The patient was seen and examined this morning with the Nurse Practitioner. The patient's condition has improved. Edema is much less. Kidney functions are stable. He is going to need physical therapy. He has stopped walking as much as he used to do and getting weak. Bibasilar pneumonia doesn't seem to quite coincide with clinical findings but we will continue antibiotics. CONDITION: Stable. TIME SPENT: More than 30 minutes. Plan and coordination of the patient's care discussed in the presence of nurse. MATTHEW
--- NOTE | 2020-11-18 13:35 | RS.OTINEVL ---
Subjective - Patient information Date of Evaluation: 11/18/20 Date of Arrival on Unit: 11/17/20 Admitted From:: Emergency Dept Diagnosis: Pneumonia, Legs weak PRECAUTIONS: Accidents in brief Usual Living Arrangement: With Spouse Living Arrangement Comments: bedroom on 2nd floor Home Environment: House, Stairs (few), Rail Medical History: Hypertension, COPD, CHF, Arthritis, Vascular Disease Medical History Comments:: brain bleed, Afib, CKD, lumbar radiculopathy, PVD, OA, DJD spine, dementia, chronic bronchitis LATEX ALLERGY?: No Surgical History: Knee Replacement, Cholecystectomy, CABG Surgical History Comments:: hernia repair, L foot sx Medications: see chart Subjective Information/ Patient Comments:: "What happens here stays here." "I think I would like to get up in the chair." - Level of function Prior to this admission, the patient could do the following:: Partially Dependent Ambulation Abilities prior to this admission: Pt reported that his usually helped him with putting on his socks and shoes. Pt reports the helps him with alot of things. Current Level of Function: Partially Dependent Comments: Pt has difficulty with ambulation and transfers with RW. Current Equipment Used at Home: 02 from [employer]; cane, walker Pain Assessment - Pain Pain Alleviating Factors: Medication, Position Change Interventions - Objective Patient Orientation: Person, Place Current Interventions: IV's, Oxygen Observation: Pt has difficulty with functional transfers and requires assist for completing ADLS. Interventions - ROM Right Upper Extremity AROM: Slight limitation Left Upper Extremity AROM: Slight limitation - Strength Right Upper Extremity Strength: Mild Weakness Left Upper Extremity Strength: Mild Weakness - Sensation Right Upper Extremity Sensation: Intact/Normal Left Upper Extremity Sensation: Intact/Normal Balance - Sitting Balance Static Sitting Balance: Good Dynamic Sitting Balance: Good - Standing Balance Static Standing Balance: Poor Dynamic Standing Balance: Poor ADL Skills - Self Feeding Self Feeding: Independent - Grooming Grooming: Min Assist - Bathing Bathing UE: Independent Bathing LE: Max Assist - Dressing Dressing UE: Min Assist Dressing LE: Max Assist - Toilet Management Toileting Management: Mod Assist Functional Mobility - Bed Mobility Rolling R/L: Not Tested Scooting: CGA Supine to Sit: Mod Assist - Transfers Sit to Stand: Mod Assist Stand to Sit: Min Assist Stand Pivot Transfers: Mod Assist - Ambulation Weight Bearing Status: FWB Assistive Device Used: Rolling Walker Assistance needed with Ambulation: Mod Assist, 2 person assist, Verbal Cues - Safety Awareness Safety Awareness: Fair LAURI INDEX SCORE: . Additional Treatment Performed - Additional units charged ADL: 15 - Time with patient Length of Evaluation: 20 Total treatment time: 15 Activities Would you be interested in leaving your room for activities?: Yes Would you enjoy group activities?: Yes Do you have difficulty with your vision?: Yes Patient Education Patient Education: Education of diagnosis, Home Safety, Education of Plan of Care Teaching Recipient: Patient Teaching Methods: Discussion Assessment Problem List:: Decreased level of function, Requires training/education, Decreased safety/Risk of falls, Weakness Rehab Potential: Good Further Therapy Indicated?: Yes Evaluation Complexity: HISTORY: Medium, EXAM OF BODY SYSTEMS: Medium, CLINICAL DECISION MAKING: Low Patient's Goal(s): To be able to go home soon with his . Short Term Goals - Goals GOAL 1: Pt to be min A for transfers with RW to the toilet. Goal to be met by: 11/23/20 GOAL 2: Pt to increase BUE strength to 4/5. Goal to be met by: 11/23/20 GOAL 3: Pt to be independent with Home Exercise program. Goal to be met by: 11/23/20 GOAL 4: Pt to be min A with sink level ADLS. Goal to be met by: 11/23/20 GOAL 5: Pt to increase dyn. std. balance to be F-. Goal to be met by: 11/23/20 [facility] Goals GOAL 1: Pt to be mod-I with ADLS. Goal to be met by: 11/27/20 GOAL 2: Pt to be mod-I with sink level ADLS. Goal to be met by: 11/27/20 GOAL 3: Pt to increase BUE strength to 4+/5. Plan Plan of Care: Therapeutic EX, Therapeutic Activity, Self-Care/Home Management Modalities: Ultrasound, Ultrasound Combination, Electrical Stimulation Frequency of Treatment: 1-2 X day, as tolerated Duration of Treatment: 1 Week Anticipated Discharge Destination: Home Treatment Diagnosis (ICD 10 Codes): M62.81 general weakness, Z74.1 Need for assistance with personal care. Has the Physician been added for Co-signature?: Yes
[2020-11-18] MEDS: ZOCOR PO SCH (20:29)
[2020-11-19] MEDS: SOLU-MEDROL 125 MG IVP SCH ×2 (02:06→08:38)
[2020-11-19] MEDS: ATROVENT HFA INHALER (PER PUFF-WITH SPACER) IH SCH ×4 (05:15→22:10)
[2020-11-19] MEDS: VENTOLIN HFA (PER PUFF-WITH SPACER) IH SCH ×4 (05:15→22:14)
[2020-11-19 05:56] LABS: BASOPHILS % (AUTO) 0.1 % (0.0-3.0); HEMATOCRIT 39.3 % (42.0-52.0); HEMOGLOBIN 12.9 g/dl (14.0-18.0); IMMATURE GRANULOCYTE # (AUTO) 0.1 (0.0-1.0); LYMPHOCYTES # (AUTO) 0.2 K/uL (0.60-3.4); LYMPHOCYTES % (AUTO) 2.8 (10.0-50.0); MEAN CORPUSCULAR HEMOGLOBIN 27.5 pg (27.0-31.0); MEAN CORPUSCULAR HGB CONC 32.8 (31.8-35.4); MEAN CORPUSCULAR VOLUME 83.8 fl (80.0-94.0); MONOCYTES # (AUTO) 0.2 K/uL (0.4-2.0); MONOCYTES % (AUTO) 2.8 (0-10); NEUTROPHILS # (AUTO) 7.6 K/ul (2.0-6.9); NEUTROPHILS % (AUTO) 93.3 % (42.2-75.2); PLATELET COUNT 115 10^3/uL (140-440); RDW COEFFICIENT OF VARIATION 16.8 % (11.6-14.8); RED BLOOD COUNT 4.69 10^6/ul (4.70-6.10); WHITE BLOOD COUNT 8.13 K/ul (4.2-10.2)
[2020-11-19 06:06] LABS: ALANINE AMINOTRANSFERASE 27.5 U/L (0-50); ALBUMIN 3.17 g/dL (3.5-5.0); ALKALINE PHOSPHATASE 67.6 U/L (56-119); ASPARTATE AMINO TRANSFERASE 28.3 U/L (17-59); BILIRUBIN,TOTAL 1.27 mg/dL (0.2-1.3); CALCIUM 9.01 mg/dL (8.4-10.2); CARBON DIOXIDE 35.1 mmol/L (22-30.0); CHLORIDE 88.5 mmol/L (98-107); CREATININE 1.29 mg/dL (0.60-1.10); POTASSIUM 3.89 mmol/L (3.5-5.1); SODIUM 130.4 mmol/L (134.5-145); TOTAL PROTEIN 6.14 g/dL (6.3-8.2)
[2020-11-19] MEDS: SYNTHROID PO SCH ×2 (06:15)
[2020-11-19] MEDS: HUMULIN R SUBCUT PRN ×4 (06:16→20:19)
[2020-11-19] MEDS: PEPCID PO SCH (06:16)
[2020-11-19] MEDS ORDERED: SOLU-MEDROL 125 MG IVP SCH ×2 (08:30→21:00)
--- NOTE | 2020-11-19 08:42 | PCM.PROG ---
Attending Provider: ATTENDING PROVIDER: Dr. SPARKLE MART This patient is seen with Cary Xavier, Nurse Practitioner. DATE OF SERVICE: 11/19/20 SUBJECTIVE: This 85 year old /WHITE M was hospitalized 11/17/20. The patient is resting comfortably. He feels like breathing is stable. He does have some leg edema. Working with therapy and progressing. Maybe candidate for swing bed. However kidney function still unstable at this time. REVIEW OF SYSTEMS: CONSTITUTIONAL: No night sweats. No fatigue, malaise, lethargy. No fever or chills. Weakness. HEENT: Eyes: No visual changes. No eye pain. No eye discharge. ENT: No runny nose. No epistaxis. No sinus pain. No odynophagia. No congestion. RESPIRATORY: No cough, no congestion. No hemoptysis. No shortness of breath. CARDIOVASCULAR: No angina symptoms. No CHF symptoms. No atypical chest pain for CAD. No palpitations. No orthopnea.. GASTROINTESTINAL: No abdominal pain. No nausea or vomiting. No diarrhea or constipation. No hematemesis. No hematochezia. GENITOURINARY: No urgency. No frequency. No dysuria. No hematuria. No obstructive symptoms. No discharge. No pain. No significant abnormal bleeding. MUSCULOSKELETAL: No musculoskeletal pain; no joint swelling. NEUROLOGICAL: Awake, alert, oriented to time, place and person. No headache. No neck pain. No syncope. No seizures. No dizziness. PSYCHIATRIC: Not anxious. No depression. No suicidal thoughts. No homicidal thoughts. SKIN: No rash. No lesions. No wounds. ENDOCRINE: No unexplained weight loss. No weight gain. HEMATOLOGIC/LYMPHATIC: No anemia. No purpura. No petechiae. No prolonged or excessive bleeding. No palpable lymph nodes. PHYSICAL EXAMINATION: GENERAL: The patient is awake, alert and oriented, lying in bed in no distress. VITAL SIGNS: Temperature 97.3 F, Pulse 80, Respiratory Rate 19, BP 116/74, Pulse Ox 96% HEENT: Head normocephalic, atraumatic. Eyes: Extraocular muscles are intact. Pupils are equal, round and reactive to light and accommodation. Ears: No lesions. Nose appeared normal. Throat: No exudate or erythema. NECK: Supple. No JVD, no carotid bruit. No lymphadenopathy or thyromegaly. LUNGS: Diminished breath sounds. Clear to auscultation. Percussion note normal. Chest symmetrical. HEART: S1, S2, no S3. No murmurs. Irregular heart rate. No cyanosis or clubbing. No ascites. Pulses: Dorsalis pedis and posterior tibial pulses +1 to +2 both sides. ABDOMEN: Soft. Non-tender. Bowel sounds active. No CVA tenderness. No mass felt. EXTREMITIES: +2 bilateral edema. Full range of motion of all extremities, equal. NEUROLOGIC: No focal deficit. Cranial nerves II through XII are grossly intact. No headache. No double vision. SKIN: Not dry. Intact. Turgor-normal. LYMPHATIC: No palpable lymph nodes/no lymphedema. MUSCULOSKELETAL: Normal joints with no swelling. Muscle tone is normal. LAB REVIEW: 11/19/20 04:34 11/19/20 04:34 11/19/20 04:34: Sodium 130.4 L, Potassium 3.89, Chloride 88.5 L, Carbon Dioxide 35.1 H, Anion Gap 10.69, BUN 50.0 H, Creatinine 1.29 H, Estimated GFR (MDRD) 53.00, BUN/Creatinine Ratio 38.75, Glucose 308.0 H D, Calcium 9.01, Total Bilirubin 1.27, AST 28.3, ALT 27.5, Alkaline Phosphatase 67.6, Total Protein 6.14 L, Albumin 3.17 L, Globulin 2.97, Albumin/Globulin Ratio 1.06 11/19/20 04:34: WBC 8.13, RBC 4.69 L, Hgb 12.9 L, Hct 39.3 L, MCV 83.8, MCH 27.5, MCHC 32.8, RDW Coeff of Marek 16.8 H, Plt Count 115 L, Immature Gran % (Auto) 1.0, Neut % (Auto) 93.3 H, Lymph % (Auto) 2.8 L, [place] % (Auto) 2.8, Eos % (Auto) 0.0, Baso % (Auto) 0.1, Neut # (Auto) 7.6 H, Lymph # (Auto) 0.2 L, [place] # (Auto) 0.2 L, Eos # (Auto) 0.0, Baso # (Auto) 0.0, Immature Gran # (Auto) 0.1 ASSESSMENT: Please see below. 1. Bibasilar pneumonia 2. Acute on chronic respiratory failure 3. COPD 4. Cor-Pulmonale 5. Dystolic heart failure 6. Hyponatremia PLAN: 1. Repeat chest x-ray 2. Decrease steroids 125 Q 12 hours. Plan and coordination of the patient's care discussed in the presence of Ordering Box Operator and nurse. SCRIBED BY: Von HUSSEIN scribed while in presence of service performed by Dr. Mart/Cary Xavier APRN on 11/19/20 ([id number])
[2020-11-19] MEDS: CARDIZEM PO SCH ×2 (09:34→20:14)
[2020-11-19] MEDS: VITAMIN D PO SCH (09:34)
[2020-11-19] MEDS: BUMEX PO SCH (09:34)
[2020-11-19] MEDS: ZINC-220 PO SCH (09:35)
[2020-11-19] MEDS: JANUVIA PO SCH (09:35)
[2020-11-19] MEDS: CYMBALTA PO SCH (09:35)
[2020-11-19] MEDS: ELIQUIS PO SCH ×2 (09:35→20:15)
[2020-11-19] MEDS: COREG PO SCH ×2 (09:35→17:50)
[2020-11-19] MEDS: K-DUR PO SCH ×3 (09:36→17:49)
[2020-11-19] MEDS: KENALOG 0.1% TP SCH ×2 (09:36→20:22)
[2020-11-19] MEDS: LEVAQUIN 750 MG/150 ML D5W 750 MG/150 ML BAG IV SCH (09:37)
[2020-11-19] MEDS: METRONIDAZOLE 0.75% TP SCH ×2 (09:43→20:23)
--- NOTE | 2020-11-19 13:44 | DI ---
EXAM: PA and lateral views of the chest HISTORY: Shortness of breath COMPARISON: Chest x-ray 11/16/2020 and multiple priors FINDINGS: The cardiomediastinal silhouette is unchanged with atherosclerotic disease. There is no p neumothorax. Small bilateral pleural effusions are present with pulmonary vascular indistinctness in the lower lobes. There is degenerative disease of the spine. IMPRESSION: Small effusions with adjacent pulmonary vascular indistinctness/ground-glass suggestive of pulmonary edema.
[2020-11-19] MEDS: ZOCOR PO SCH (20:14)
[2020-11-20 05:06] LABS: BASOPHILS % (AUTO) 0.2 % (0.0-3.0); HEMATOCRIT 40.7 % (42.0-52.0); HEMOGLOBIN 13.2 g/dl (14.0-18.0); IMMATURE GRANULOCYTE # (AUTO) 0.1 (0.0-1.0); IMMATURE GRANULOCYTE % (AUTO) 1.4 % (0.0-5.0); LYMPHOCYTES # (AUTO) 0.3 K/uL (0.60-3.4); LYMPHOCYTES % (AUTO) 3.2 (10.0-50.0); MEAN CORPUSCULAR HEMOGLOBIN 27.6 pg (27.0-31.0); MEAN CORPUSCULAR HGB CONC 32.4 (31.8-35.4); MEAN CORPUSCULAR VOLUME 85.1 fl (80.0-94.0); MONOCYTES # (AUTO) 0.4 K/uL (0.4-2.0); NEUTROPHILS # (AUTO) 8.1 K/ul (2.0-6.9); NEUTROPHILS % (AUTO) 91.2 % (42.2-75.2); PLATELET COUNT 102 10^3/uL (140-440); RDW COEFFICIENT OF VARIATION 16.6 % (11.6-14.8); RED BLOOD COUNT 4.78 10^6/ul (4.70-6.10); WHITE BLOOD COUNT 8.83 K/ul (4.2-10.2)
[2020-11-20] MEDS: ATROVENT HFA INHALER (PER PUFF-WITH SPACER) IH SCH ×4 (05:12→23:21)
[2020-11-20] MEDS: VENTOLIN HFA (PER PUFF-WITH SPACER) IH SCH ×4 (05:13→23:22)
[2020-11-20 05:18] LABS: ALANINE AMINOTRANSFERASE 29.7 U/L (0-50); ALBUMIN 3.22 g/dL (3.5-5.0); ALKALINE PHOSPHATASE 76.4 U/L (56-119); ASPARTATE AMINO TRANSFERASE 29.4 U/L (17-59); BILIRUBIN,TOTAL 1.23 mg/dL (0.2-1.3); BLOOD UREA NITROGEN 57.3 mg/dL (9-20); CALCIUM 9.09 mg/dL (8.4-10.2); CHLORIDE 86.2 mmol/L (98-107); CREATININE 1.53 mg/dL (0.60-1.10); GLUCOSE 297.3 mg/dL (74-106); POTASSIUM 4.25 mmol/L (3.5-5.1); SODIUM 129.8 mmol/L (134.5-145); TOTAL PROTEIN 6.14 g/dL (6.3-8.2)
[2020-11-20 05:39] LABS: CARBON DIOXIDE 37.6 mmol/L (22-30.0)
[2020-11-20] MEDS: SYNTHROID PO SCH ×2 (05:52)
[2020-11-20] MEDS: PEPCID PO SCH (05:52)
[2020-11-20] MEDS: HUMULIN R SUBCUT PRN ×4 (05:52→20:40)
[2020-11-20] MEDS ORDERED: LASIX IVP ONE (08:35)
--- NOTE | 2020-11-20 08:44 | PCM.PROG ---
Attending Provider: ATTENDING PROVIDER: Dr. SPARKLE MART This patient is seen with Cary Xavier, Nurse Practitioner. DATE OF SERVICE: 11/20/20 SUBJECTIVE: This 85 year old /WHITE M was hospitalized 11/17/20. The patient is resting comfortably. Still some leg edema. Weakness. Kidney function is slightly worse. Denies any change in breathing. Repeat chest x-ray mentioned no pneumonia, possible ventricular congestion. REVIEW OF SYSTEMS: CONSTITUTIONAL: No night sweats. No fatigue, malaise, lethargy. No fever or chills. Weakness. HEENT: Eyes: No visual changes. No eye pain. No eye discharge. ENT: No runny nose. No epistaxis. No sinus pain. No odynophagia. No congestion. RESPIRATORY: No cough, no congestion. No hemoptysis. No shortness of breath. CARDIOVASCULAR: No angina symptoms. No CHF symptoms. No atypical chest pain for CAD. No palpitations. No orthopnea.. GASTROINTESTINAL: No abdominal pain. No nausea or vomiting. No diarrhea or constipation. No hematemesis. No hematochezia. GENITOURINARY: No urgency. No frequency. No dysuria. No hematuria. No obstr uctive symptoms. No discharge. No pain. No significant abnormal bleeding. MUSCULOSKELETAL: No musculoskeletal pain; no joint swelling. NEUROLOGICAL: Awake, alert, oriented to time, place and person. No headache. No neck pain. No syncope. No seizures. No dizziness. PSYCHIATRIC: Not anxious. No depression. No suicidal thoughts. No homicidal thoughts. SKIN: No rash. No lesions. No wounds. Leg edema. ENDOCRINE: No unexplained weight loss. No weight gain. HEMATOLOGIC/LYMPHATIC: No anemia. No purpura. No petechiae. No prolonged or excessive bleeding. No palpable lymph nodes. PHYSICAL EXAMINATION: GENERAL: The patient is awake, alert and oriented, lying in bed in no distress. VITAL SIGNS: Temperature 97.6 F, Pulse 72, Respiratory Rate 17, BP 115/81, Pulse Ox 92% HEENT: Head normocephalic, atraumatic. Eyes: Extraocular muscles are intact. Pupils are equal, round and reactive to light and accommodation. Ears: No lesions. Nose appeared normal. Throat: No exudate or erythema. NECK: Supple. No JVD, no carotid bruit. No lymphadenopathy or thyromegaly. LUNGS: Diminished breath sounds, bilaterally. Clear to auscultation. Percussion note normal. Chest symmetrical. HEART: S1, S2, no S3. No murmurs. No cyanosis or clubbing. No ascites. Pulses: Dorsalis pedis and posterior tibial pulses +1 to +2 both sides. ABDOMEN: Soft. Non-tender. Bowel sounds active. No CVA tenderness. No mass felt. EXTREMITIES: 2+ bilateral leg edema. Full range of motion of all extremities, equal. NEUROLOGIC: No focal deficit. Cranial nerves II through XII are grossly intact. No headache. No double vision. SKIN: Not dry. Intact. Turgor-normal. LYMPHATIC: No palpable lymph nodes/no lymphedema. MUSCULOSKELETAL: Normal joints with no swelling. Muscle tone is normal. LAB REVIEW: 11/20/20 04:45 11/20/20 04:45 11/20/20 04:45: Sodium 129.8 L, Potassium 4.25, Chloride 86.2 L, Carbon Dioxide 37.6 H, Anion Gap 10.25, BUN 57.3 H, Creatinine 1.53 H, Estimated GFR (MDRD) 43.00, BUN/Creatinine Ratio 37.45, Glucose 297.3 H, Calcium 9.09, Total Bilirubin 1.23, AST 29.4, ALT 29.7, Alkaline Phosphatase 76.4, Total Protein 6.14 L, Albumin 3.22 L, Globulin 2.92, Albumin/Globulin Ratio 1.10 11/20/20 04:45: WBC 8.83, RBC 4.78, Hgb 13.2 L, Hct 40.7 L, MCV 85.1, MCH 27.6, MCHC 32.4, RDW Coeff of Marek 16.6 H, Plt Count 102 L, Immature Gran % (Auto) 1.4, Neut % (Auto) 91.2 H, Lymph % (Auto) 3.2 L, [place] % (Auto) 4.0, Eos % (Auto) 0.0, Baso % (Auto) 0.2, Neut # (Auto) 8.1 H, Lymph # (Auto) 0.3 L, [place] # (Auto) 0.4, Eos # (Auto) 0.0, Baso # (Auto) 0.0, Immature Gran # (Auto) 0.1 ASSESSMENT: Please see below. 1. Bilateral pneumonia 2. Possible pulmonary edema 3. Dystolic heart failure 4. Renal Azotemia 5. CKD 3 6. Leg edema. PLAN: 1. Normal saline at 50cc one bag 2. Lasix 20mg IV 3. Discontinue Levaquin 4. 250mg PO Levaquin 5. Prednisone 10mg BID Plan and coordination of the patient's care discussed in the presence of Documentation Analyst and nurse. SCRIBED BY: Von HUSSEIN scribed while in presence of service performed by Dr. Mart/Cary Xavier APRN on 11/20/20 ([id number])
[2020-11-20] MEDS ORDERED: SODIUM CHLORIDE 1,000 ML IV SCH (09:00)
[2020-11-20] MEDS ORDERED: LEVAQUIN 750 MG/150 ML D5W 750 MG/150 ML BAG IV SCH (09:00)
[2020-11-20] MEDS: CARDIZEM PO SCH ×2 (09:15→20:37)
[2020-11-20] MEDS: VITAMIN D PO SCH (09:15)
[2020-11-20] MEDS: PREDNISONE PO SCH ×2 (09:16→17:16)
[2020-11-20] MEDS: CYMBALTA PO SCH (09:16)
[2020-11-20] MEDS: ZINC-220 PO SCH (09:16)
[2020-11-20] MEDS: BUMEX PO SCH (09:16)
[2020-11-20] MEDS: LEVAQUIN PO SCH (09:16)
[2020-11-20] MEDS: K-DUR PO SCH ×3 (09:16→17:16)
[2020-11-20] MEDS: JANUVIA PO SCH (09:16)
[2020-11-20] MEDS: COREG PO SCH ×2 (09:17→17:15)
[2020-11-20] MEDS: KENALOG 0.1% TP SCH ×2 (09:17→20:41)
[2020-11-20] MEDS: ELIQUIS PO SCH ×2 (09:18→20:38)
[2020-11-20] MEDS: METRONIDAZOLE 0.75% TP SCH ×2 (09:30→21:00)
--- NOTE | 2020-11-20 09:54 | PN ---
DATE OF SERVICE: 11/18/20 SUBJECTIVE: 85-year-old white male hospitalized with possible pneumonitis, bronchitis, leg swelling, weakness and inability to walk. The patient has been in the hospital a couple of times in the past one month with a similiar problem. Overall the patient's condition is deteriorating with weakness. He has multiple medical problems, some are more or less end-stage as chronic respiratory failure continuous oxygen. REVIEW OF SYSTEMS: CONSTITUTIONAL: Feeling better, still weak, on physical therapy. No night sweats. No fatigue, malaise, lethargy. No fever or chills. HEENT: Eyes: No visual changes. No eye pain. No eye discharge. ENT: No runny nose. No epistaxis. No sinus pain. No sore throat. No odynophagia. No congestion. RESPIRATORY: No cough, no congestion. No hemoptysis. No shortness of breath. CARDIOVASCULAR: No angina symptoms. No CHF symptoms. No atypical chest pain for CAD. No palpitations. No PND. No orthopnea. GASTROINTESTINAL: No abdominal pain. No nausea or vomiting. No diarrhea or constipation. No hematemesis. No hematochezia. GENITOURINARY: No urgency. No frequency. No dysuria. No hematuria. No obstructive symptoms. No discharge. No pain. No significant abnormal bleeding. MUSCULOSKELETAL: No musculoskeletal pain; no joint swelling. NEUROLOGICAL: No headache. No neck pain. No syncope. No seizures. No dizziness. PSYCHIATRIC: Not anxious. No depression. No suicidal thoughts. No homicidal thoughts. SKIN: No rash. No lesions. No wounds. ENDOCRINE: No unexplained weight loss. No weight gain. HEMATOLOGIC/LYMPHATIC: No anemia. No purpura. No petechiae. No prolonged or excessive bleeding. No palpable lymph nodes. PHYSICAL EXAMINATION: VITAL SIGNS: Temperature 97.9, pulse 76, respiratory rate 18, blood pressure 140/90, pulse ox 100% on 2L. HEENT: Head normocephalic, atraumatic. Eyes: Extraocular muscles are intact. Pupils are equal, round and reactive to light and accommodation. Ears: No lesions. Nose appeared normal. Throat: No exudate or erythema. NECK: Supple. No JVD, no carotid bruit. No lymphadenopathy or thyromegaly. LUNGS: Decreased breath sounds, mild wheeze. Percussion note normal. Chest symmetrical. HEART: S1, S2, no S3. No murmurs. No cyanosis or clubbing. No ascites. Pulses: Dorsalis pedis and posterior tibial pulses +1 to +2 bilaterally. ABDOMEN: Soft. Nontender. Bowel sounds active. No CVA tenderness. No mass felt. EXTREMITIES: No edema. Full range of motion of all extremities, equal. NEUROLOGIC: No focal deficit. Cranial nerves II through XII are grossly intact. No headache. No double vision. SKIN: Not dry. Intact. Turgor - normal. LYMPHATIC: No palpable lymph nodes/no lymphedema. MUSCULOSKELETAL: Normal joints with no swelling. Muscle tone is normal. LABS: Hemoglobin 13.4, hematocrit 41, WBC 7,300, normal differential. Creatinine 1.2, BUN 46, potassium 3.6, GFR 56. ASSESSMENT: 1. Chronic respiratory failure seems to be under control. 2. 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 3. Bilateral leg edema for multifactorial. 4. Weakness, generalized fatigue likely from multiple medical conditions, deteriorating with practically sedentary lifestyle. PLAN: 1. Start physical therapy. 2. Continue steroids, diuretics, nebs treatment. 3. Leg elevation. 4. Kidney functions are stable for himself. 5. c02 is elevated from compensated respiratory acidosis. TIME SPENT: More than 30 minutes. Plan and coordination of the patient's care discussed in the presence of nurse. MATTHEW
--- NOTE | 2020-11-20 13:49 | PN ---
DATE OF SERVICE: 11/19/20 SUBJECTIVE: The patient was seen and examined with the nurse practitioner. The patient's condition seems to be improving some. He still has some pedal edema, +1 to +2. Respiratory status stable. The patient was given too much of Lasix with high BNP but the BNP is high because of biventricular failure and renal insufficiency. BNP is going to be high, should not be tied to giving Lasix therapy. In any case, the Lasix dose will be reduced. Elevate the legs. The patient may need physical therapy, PT/OT. He needs some strength and may be on the swing bed tomorrow. Condition otherwise is stable. TIME SPENT: More than 30 minutes. Plan and coordination of the patient's care discussed in the presence of nurse. MATTHEW
--- NOTE | 2020-11-20 13:56 | PN ---
BILLING 11/17/20 ADMISSION DAY LEVEL 5 11/18/20 INTERMEDIATE 11/19/20 FINAL DAY D IN DISCHARGE 11/20/20 THE PATIENT WILL BE IN SWING BED STARTING THIS DATE MTDD
[2020-11-20] MEDS: ZOCOR PO SCH (20:38)
[2020-11-21 05:08] LABS: BASOPHILS % (AUTO) 0.1 % (0.0-3.0); HEMATOCRIT 40.5 % (42.0-52.0); HEMOGLOBIN 13.3 g/dl (14.0-18.0); IMMATURE GRANULOCYTE # (AUTO) 0.2 (0.0-1.0); IMMATURE GRANULOCYTE % (AUTO) 1.7 % (0.0-5.0); LYMPHOCYTES # (AUTO) 0.2 K/uL (0.60-3.4); MEAN CORPUSCULAR HEMOGLOBIN 27.8 pg (27.0-31.0); MEAN CORPUSCULAR HGB CONC 32.8 (31.8-35.4); MEAN CORPUSCULAR VOLUME 84.7 fl (80.0-94.0); MONOCYTES # (AUTO) 0.7 K/uL (0.4-2.0); MONOCYTES % (AUTO) 7.8 (0-10); NEUTROPHILS % (AUTO) 88.4 % (42.2-75.2); PLATELET COUNT 105 10^3/uL (140-440); RDW COEFFICIENT OF VARIATION 16.9 % (11.6-14.8); RED BLOOD COUNT 4.78 10^6/ul (4.70-6.10); WHITE BLOOD COUNT 9.07 K/ul (4.2-10.2)
[2020-11-21] MEDS: VENTOLIN HFA (PER PUFF-WITH SPACER) IH SCH ×4 (05:14→22:44)
[2020-11-21] MEDS: ATROVENT HFA INHALER (PER PUFF-WITH SPACER) IH SCH ×4 (05:15→22:44)
[2020-11-21 05:23] LABS: ALANINE AMINOTRANSFERASE 28.6 U/L (0-50); ALBUMIN 3.06 g/dL (3.5-5.0); ALKALINE PHOSPHATASE 77.8 U/L (56-119); ASPARTATE AMINO TRANSFERASE 26.2 U/L (17-59); BILIRUBIN,TOTAL 1.23 mg/dL (0.2-1.3); CALCIUM 8.76 mg/dL (8.4-10.2); CARBON DIOXIDE 35.3 mmol/L (22-30.0); CHLORIDE 87.8 mmol/L (98-107); CREATININE 1.52 mg/dL (0.60-1.10); GLUCOSE 312.1 mg/dL (74-106); POTASSIUM 4.3 mmol/L (3.5-5.1); SODIUM 129.4 mmol/L (134.5-145); TOTAL PROTEIN 5.81 g/dL (6.3-8.2)
[2020-11-21 05:31] LABS: BLOOD UREA NITROGEN 61.1 mg/dL (9-20)
[2020-11-21] MEDS: PEPCID PO SCH (05:43)
[2020-11-21] MEDS: LEVAQUIN PO SCH (05:43)
[2020-11-21] MEDS: SYNTHROID PO SCH ×2 (05:43)
[2020-11-21] MEDS: HUMULIN R SUBCUT PRN ×4 (06:21→21:02)
[2020-11-21] MEDS ORDERED: SODIUM CHLORIDE 1,000 ML IV SCH (09:00)
[2020-11-21] MEDS: BUMEX PO SCH (09:27)
[2020-11-21] MEDS: CARDIZEM PO SCH ×2 (09:27→21:01)
[2020-11-21] MEDS: VITAMIN D PO SCH (09:28)
[2020-11-21] MEDS: COREG PO SCH ×2 (09:28→17:15)
[2020-11-21] MEDS: JANUVIA PO SCH (09:28)
[2020-11-21] MEDS: ELIQUIS PO SCH ×2 (09:28→21:01)
[2020-11-21] MEDS: PREDNISONE PO SCH ×2 (09:28→17:15)
[2020-11-21] MEDS: CYMBALTA PO SCH (09:28)
[2020-11-21] MEDS: K-DUR PO SCH ×3 (09:28→17:16)
[2020-11-21] MEDS: ZINC-220 PO SCH (09:28)
[2020-11-21] MEDS: METRONIDAZOLE 0.75% TP SCH ×2 (11:11→21:06)
[2020-11-21] MEDS: KENALOG 0.1% TP SCH ×2 (11:18→21:05)
[2020-11-21] MEDS: ZOCOR PO SCH (21:01)
[2020-11-22 05:00] LABS: HEMATOCRIT 42.1 % (42.0-52.0); HEMOGLOBIN 13.7 g/dl (14.0-18.0); MEAN CORPUSCULAR HEMOGLOBIN 27.7 pg (27.0-31.0); MEAN CORPUSCULAR HGB CONC 32.5 (31.8-35.4); MEAN CORPUSCULAR VOLUME 85.2 fl (80.0-94.0); PLATELET COUNT 102 10^3/uL (140-440); RDW COEFFICIENT OF VARIATION 17.2 % (11.6-14.8); RED BLOOD COUNT 4.94 10^6/ul (4.70-6.10); WHITE BLOOD COUNT 9.83 K/ul (4.2-10.2)
[2020-11-22 05:13] LABS: ALANINE AMINOTRANSFERASE 27.9 U/L (0-50); ALBUMIN 3.14 g/dL (3.5-5.0); ALKALINE PHOSPHATASE 68.4 U/L (56-119); ASPARTATE AMINO TRANSFERASE 26.4 U/L (17-59); BILIRUBIN,TOTAL 1.59 mg/dL (0.2-1.3); BLOOD UREA NITROGEN 56.8 mg/dL (9-20); CALCIUM 8.95 mg/dL (8.4-10.2); CARBON DIOXIDE 39.2 mmol/L (22-30.0); CHLORIDE 91.2 mmol/L (98-107); CREATININE 1.53 mg/dL (0.60-1.10); GLUCOSE 220.2 mg/dL (74-106); POTASSIUM 4.31 mmol/L (3.5-5.1); SODIUM 133.2 mmol/L (134.5-145); TOTAL PROTEIN 5.91 g/dL (6.3-8.2)
[2020-11-22 05:19] LABS: ANISOCYTOSIS NOT PRESENT (NOT PRESENT)
[2020-11-22] MEDS: VENTOLIN HFA (PER PUFF-WITH SPACER) IH SCH ×4 (05:30→23:42)
[2020-11-22] MEDS: ATROVENT HFA INHALER (PER PUFF-WITH SPACER) IH SCH ×4 (05:30→23:42)
[2020-11-22] MEDS: PEPCID PO SCH (06:11)
[2020-11-22] MEDS: LEVAQUIN PO SCH (06:11)
[2020-11-22] MEDS: SYNTHROID PO SCH ×2 (06:11)
[2020-11-22] MEDS: HUMULIN R SUBCUT PRN ×4 (06:19→20:10)
[2020-11-22] MEDS: ZINC-220 PO SCH (08:52)
[2020-11-22] MEDS: CARDIZEM PO SCH ×2 (08:52→20:09)
[2020-11-22] MEDS: VITAMIN D PO SCH (08:52)
[2020-11-22] MEDS: JANUVIA PO SCH (08:53)
[2020-11-22] MEDS: PREDNISONE PO SCH ×2 (08:53→17:16)
[2020-11-22] MEDS: COREG PO SCH ×2 (08:53→17:16)
[2020-11-22] MEDS: BUMEX PO SCH (08:53)
[2020-11-22] MEDS: CYMBALTA PO SCH (08:53)
[2020-11-22] MEDS: K-DUR PO SCH ×3 (08:53→17:15)
[2020-11-22] MEDS: KENALOG 0.1% TP SCH ×2 (08:56→20:16)
[2020-11-22] MEDS: ELIQUIS PO SCH ×2 (08:57→20:10)
[2020-11-22] MEDS: METRONIDAZOLE 0.75% TP SCH ×2 (09:00→20:17)
[2020-11-22] MEDS: ZOCOR PO SCH (20:09)
[2020-11-23 05:03] LABS: HEMATOCRIT 41.6 % (42.0-52.0); HEMOGLOBIN 13.7 g/dl (14.0-18.0); MEAN CORPUSCULAR HGB CONC 32.9 (31.8-35.4); MEAN CORPUSCULAR VOLUME 85.1 fl (80.0-94.0); PLATELET COUNT 102 10^3/uL (140-440); RDW COEFFICIENT OF VARIATION 17.4 % (11.6-14.8); RED BLOOD COUNT 4.89 10^6/ul (4.70-6.10); WHITE BLOOD COUNT 11.51 K/ul (4.2-10.2)
[2020-11-23 05:10] LABS: ANISOCYTOSIS NOT PRESENT (NOT PRESENT)
[2020-11-23] MEDS: VENTOLIN HFA (PER PUFF-WITH SPACER) IH SCH (05:10)
[2020-11-23] MEDS: ATROVENT HFA INHALER (PER PUFF-WITH SPACER) IH SCH (05:10)
[2020-11-23 05:14] LABS: ALANINE AMINOTRANSFERASE 30.1 U/L (0-50); ALBUMIN 2.9 g/dL (3.5-5.0); ALKALINE PHOSPHATASE 66.6 U/L (56-119); ASPARTATE AMINO TRANSFERASE 29.9 U/L (17-59); BILIRUBIN,TOTAL 1.53 mg/dL (0.2-1.3); BLOOD UREA NITROGEN 53.9 mg/dL (9-20); CALCIUM 8.77 mg/dL (8.4-10.2); CARBON DIOXIDE 39.4 mmol/L (22-30.0); CHLORIDE 92.1 mmol/L (98-107); CREATININE 1.31 mg/dL (0.60-1.10); GLUCOSE 200.8 mg/dL (74-106); POTASSIUM 4.05 mmol/L (3.5-5.1); SODIUM 132.3 mmol/L (134.5-145); TOTAL PROTEIN 5.68 g/dL (6.3-8.2)
[2020-11-23] MEDS: LEVAQUIN PO SCH (05:48)
[2020-11-23] MEDS: PEPCID PO SCH (05:48)
[2020-11-23] MEDS: HUMULIN R SUBCUT PRN (05:51)
[2020-11-23 05:52] VITALS: BP 128/86; TEMP 96.9
[2020-11-23] MEDS: SYNTHROID PO SCH ×2 (05:54)
[2020-11-23] MEDS ORDERED: PREDNISONE PO SCH (08:30)
[2020-11-23] MEDS: BUMEX PO SCH (08:49)
[2020-11-23] MEDS: VITAMIN D PO SCH (08:49)
[2020-11-23] MEDS: CARDIZEM PO SCH (08:50)
[2020-11-23] MEDS: JANUVIA PO SCH (08:50)
[2020-11-23] MEDS: COREG PO SCH (08:50)
[2020-11-23] MEDS: ZINC-220 PO SCH (08:50)
[2020-11-23] MEDS: CYMBALTA PO SCH (08:50)
[2020-11-23] MEDS: K-DUR PO SCH (08:50)
[2020-11-23] MEDS: KENALOG 0.1% TP SCH (08:51)
[2020-11-23] MEDS: METRONIDAZOLE 0.75% TP SCH (08:51)
[2020-11-23] MEDS: ELIQUIS PO SCH (08:52)
--- NOTE | 2020-11-23 09:52 | PCM.PROG ---
Attending Provider: ATTENDING PROVIDER: Dr. SPARKLE MART This patient is seen with Cray Xavier, Nurse Practitioner. DATE OF SERVICE: 11/23/20 SUBJECTIVE: This 85 year old /WHITE M was hospitalized 11/17/20. The patient is resting comfortably in bed. BUN and creatinine slightly improved. He has been eating well, will transition to swing bed for PT/OT. REVIEW OF SYSTEMS: CONSTITUTIONAL: Weakness. No night sweats. No fatigue, malaise, lethargy. No fever or chills. HEENT: Eyes: No visual changes. No eye pain. No eye discharge. ENT: No runny nose. No epistaxis. No sinus pain. No odynophagia. No congestion. RESPIRATORY: No cough, no congestion. No hemoptysis. No shortness of breath. CARDIOVASCULAR: Irregular heart rate. No angina symptoms. No CHF symptoms. No at ypical chest pain for CAD. No palpitations. No orthopnea.. GASTROINTESTINAL: No abdominal pain. No nausea or vomiting. No diarrhea or constipation. No hematemesis. No hematochezia. GENITOURINARY: No urgency. No frequency. No dysuria. No hematuria. No obstructive symptoms. No discharge. No pain. No significant abnormal bleeding. MUSCULOSKELETAL: Trace leg edema. No musculoskeletal pain; no joint swelling. NEUROLOGICAL: Awake, alert, oriented to time, place and person. No headache. No neck pain. No syncope. No seizures. No dizziness. PSYCHIATRIC: Not anxious. No depression. No suicidal thoughts. No homicidal thoughts. SKIN: No rash. No lesions. No wounds. ENDOCRINE: No unexplained weight loss. No weight gain. HEMATOLOGIC/LYMPHATIC: No anemia. No purpura. No petechiae. No prolonged or exce ssive bleeding. No palpable lymph nodes. PHYSICAL EXAMINATION: GENERAL: The patient is awake, alert and oriented, lying/sitting in bed in no distress. VITAL SIGNS: Temperature 96.9 F, Pulse 76, Respiratory Rate 18, BP 128/86, Pulse Ox 97% HEENT: Head normocephalic, atraumatic. Eyes: Extraocular muscles are intact. Pupils are equal, round and reactive to light and accommodation. Ears: No lesions. Nose appeared normal. Throat: No exudate or erythema. NECK: Supple. No JVD, no carotid bruit. No lymphadenopathy or thyromegaly. LUNGS: Diminished breath sounds. Clear to auscultation. Percussion note normal. Chest symmetrical. HEART: S1, S2, no S3. No murmurs. No cyanosis or clubbing. No ascites. Pulses: Dorsalis pedis and posterior tibial pulses +1 to +2 both sides. ABDOMEN: Soft. Non-tender. Bowel sounds active. No CVA tenderness. No mass felt. EXTREMITIES: Trace bilateral leg edema. Full range of motion of all extremities, equal. NEUROLOGIC: No focal deficit. Cranial nerves II through XII are grossly intact. No headache. No double vision. SKIN: Not dry. Intact. Turgor-normal. LYMPHATIC: No palpable lymph nodes/no lymphedema. MUSCULOSKELETAL: Normal joints with no swelling. Muscle tone is normal. LAB REVIEW: 11/23/20 04:57 11/23/20 04:57 11/23/20 04:57: Sodium 132.3 L, Potassium 4.05, Chloride 92.1 L, Carbon Dioxide 39.4 H, Anion Gap 4.85, BUN 53.9 H, Creatinine 1.31 H, Estimated GFR (MDRD) 52.00, BUN/Creatinine Ratio 41.14, Glucose 200.8 H, Calcium 8.77, Total Bilirubin 1.53 H, AST 29.9, ALT 30.1, Alkaline Phosphatase 66.6, Total Protein 5.68 L, Albumin 2.90 L, Globulin 2.78, Albumin/Globulin Ratio 1.04 11/23/20 04:57: WBC 11.51 H, RBC 4.89, Hgb 13.7 L, Hct 41.6 L, MCV 85.1, MCH 28.0, MCHC 32.9, RDW Coeff of Marek 17.4 H, Plt Count 102 L, Neutrophils % (Manual) 81.0 H, Lymphocytes % (Manual) 1.0 L, Monocytes % (Manual) 14.0 H, Eosinophils % (Manual) 2.0, Reactive Lymphocytes 2.0, Anisocytosis Not present ASSESSMENT: Please see below. 1. Bilateral pneumonia 2. Possible pulmonary edema 3. Dystolic heart failure 4. Renal Azotemia 5. CKD 3 6. Leg edema. PLAN: 1. CBC, CMP tomorrow. If improved, may skip a day. 2. Decrease Prednisone to once a day. 3. Stop Levaquin after today. PLAN: 1. Discharge to Swing Bed. Plan and coordination of the patient's care discussed in the presence of Sinter Machine Operator and nurse. CONDITION: STABLE SCRIBED BY: HARRY VERA Continuous Churn Buttermaker scribed while in presence of service performed by Dr. Mart/Cary Xavier APRN on 11/23/20 ([id number])
--- NOTE | 2020-11-23 10:03 | DS ---
DATE OF SERVICE: 11/23/20 FINAL DIAGNOSIS: 1. Bilateral pneumonia. 2. End-stage COPD, oxygen dependent. 3. Atrial fibrillation. 4. Diastolic heart failure with cor pulmonale. 5. Renal azotemia. 6. Underlying chronic kidney disease, Stage 3 to 4. 7. Diabetes mellitus, Type 2. 8. Generalized weakness. 9. Chronic leg edema. DISCHARGE INSTRUCTIONS: The patient will be followed in swing bed for PT/OT. MEDICATIONS AT DISCHARGE: Levothyroxine 125 mcg p.o. daily Simvastatin 5 mg p.o. bedtime Eliquis 2.5 mg p.o. b.i.d. Hydrocodone-Acetaminophen 7.5 mg p.o. q.6hr p.r.n. Lantus U-100 insulin 100 unit/mL solution 20 units subcut bedtime Bumetanide 2 mg p.o. daily Diltiazem 90 mg p.o. b.i.d. Metolazone 2.5 mg p.o. WESA Sitagliptin 50 mg p.o. daily Famotidine 20 mg p.o. daily Carvedilol 3.125 mg p.o. b.i.d. Cholecalciferol 5,000 unit p.o. daily Zinc Sulfate 220 mg p.o. daily Triamcinolone one application topical b.i.d. Metronidazole (MetroCream) one application topical b.i.d. Potassium Chloride (K-tab) 20 mEq p.o. t.i.d. Cephalexin 500 mg p.o. t.i.d. Prednisone 10 mg p.o. daily Duloxetine 60 mg p.o. daily MEDICATION CHANGES: Last dose of Levaquin today Reduce Prednisone p.o. to 10 mg to daily DIET INSTRUCTIONS: Heart Healthy ACTIVITY: As patient tolerates. SMOKING: N/A DISEASE SPECIFIC EDUCATION: Swing bed placement PT/OT HOSPITAL COURSE: This 85-year-old male admitted through the ER with generalized weakness and leg edema. He states he was at home and unable to walk upstairs. He had been recently hospitalized for diastolic heart failure and leg edema. Chest x-ray showed questionable bilateral pneumonia. Respiratory status is stable. He was admitted for IV Levaquin and IV steroids. Over the course of the past several days, cough improved, respiratory status improved. He is working well with therapy. He has underlying kidney disease. BUN was increased for a couple of days and now trending down. He did require two bags of IV fluids given slowly due to heart failure. At this point, the patient is stable for swing bed placement. CONDITION: STABLE TIME SPENT: More than 60 minutes. MTDD
--- NOTE | 2020-11-24 08:00 | PN ---
DATE OF SERVICE: 11/19/2020 SUBJECTIVE: The patient was explained about that I leave tomorrow. Dr. Cervantes is going to be in charge physician but Cary is going to come and make rounds and discharge him from the regular bed and put him on the swing bed. Dr. Cervantes is going to call me until Monday afternoon. TIME SPENT: More than 30 minutes. Plan and coordination of the patient's care discussed in the presence of nurse. MATTHEW
--- NOTE | 2020-11-24 09:30 | PN ---
DATE OF SERVICE: 11/22/2020 SUBJECTIVE: 85 year old white male hospitalized with respiratory failure with possible pneumonitis. The patient's condition has improved in the hospital with some physical therapy and strengthening exercises for limbs. The patient's creatinine and BUN slightly abnormal yesterday. The BUN was 61 and today it was down 56. He is on slow IV fluids with no evidence of fluid overload. The patient's leg edema has slowly declined, +1 to +2 instead of 3+ to 4+. REVIEW OF SYSTEMS: CONSTITUTIONAL: No night sweats. No fatigue, malaise, lethargy. No fever or chills. HEENT: Eyes: No visual changes. No eye pain. No eye discharge. ENT: No runny nose. No epistaxis. No sinus pain. No sore throat. No odynophagia. No congestion. RESPIRATORY: No cough, no congestion. No hemoptysis. Shortness of breath as usual. CARDIOVASCULAR: No angina symptoms. No CHF symptoms. No atypical chest pain for CAD. No palpitations. No PND. No orthopnea. GASTROINTESTINAL: No abdominal pain. No nausea or vomiting. No diarrhea or constipation. No hematemesis. No hematochezia. Appetite has improved. GENITOURINARY: No urgency. No frequency. No dysuria. No hematuria. No obstructive symptoms. No discharge. No pain. No significant abnormal bleeding. MUSCULOSKELETAL: No musculoskeletal pain; no joint swelling. NEUROLOGICAL: No headache. No neck pain. No syncope. No seizures. No dizziness. PSYCHIATRIC: Not anxious. No depression. No suicidal thoughts. No homicidal thoughts. SKIN: No rash. No lesions. No wounds. ENDOCRINE: No unexplained weight loss. No weight gain. HEMATOLOGIC/LYMPHATIC: No anemia. No purpura. No petechiae. No prolonged or excessive bleeding. No palpable lymph nodes. PHYSICAL EXAMINATION: VITAL SIGNS: Temperature 97, pulse 96 irregular, respiratory rate 18, blood pressure 102/73 and pulse ox 97%. HEENT: Head normocephalic, atraumatic. Eyes: Extraocular muscles are intact. Pupils are equal, round and reactive to light and accommodation. Ears: No lesions. Nose appeared normal. Throat: No exudate or erythema. NECK: Supple. No JVD, no carotid bruit. No lymphadenopathy or thyromegaly. LUNGS: Decreased breath sounds with a few crepitation at the bases. Percussion note normal. Chest symmetrical. HEART: S1, S2, no S3. No murmurs. No cyanosis or clubbing. No ascites. Pulses: Dorsalis pedis and posterior tibial pulses +1 to +2 bilaterally. ABDOMEN: Soft. Nontender. Bowel sounds active. No CVA tenderness. No mass felt. EXTREMITIES: +1-+2 pitting edema. Full range of motion of all extremities, equal. NEUROLOGIC: No focal deficit. Cranial nerves II through XII are grossly intact. No headache. No double vision. SKIN: Not dry. Intact. Turgor - normal. LYMPHATIC: No palpable lymph nodes/no lymphedema. MUSCULOSKELETAL: Normal joints with no swelling. Muscle tone is normal. LABS: Hgb 13.7, hct 42, WBC 9,800 normal differential, creatinine 1.5, BUN 56, potassium 4.3. ASSESSMENT: 1. 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 Chronic respiratory failure seems to be under control 3. The patient has end stage medical problems involving cardiovascular and respiratory status. 4. The patient has chronic kidney disease, BUN tends to be a little higher than the creatinine and the ratio is high because of diuretic therapy. 5. Hyperglycemia from steroid use. He is on accu-checks with sliding scale coverage. PLAN: 1. He is going to be discharged from the acute care. He is going to be admitted to swing bed for further physical therapy and strengthening from limb muscles. TIME SPENT: More than 30 minutes. Plan and coordination of the patient's care discussed in the presence of nurse. MATTHEW
--- NOTE | 2020-11-24 09:52 | PN ---
DATE OF SERVICE: 11/23/2020 SUBJECTIVE: The patient was seen and examined with Nurse Practitioner. The patient's condition is improving. He seems to be somewhat depressed. I talked to him and he seems to have perked up a little. He is going to be hospitalized now in the swing bed unit for physical therapy/occupational therapy. He is a good candidate but the patient's medical condition; biventricular failure and chronic lung disease are end stage. Double knee replacement. He is 85, we will see how he does. His ABG were really good on 3 liters with pO2 of more than 100. We will decrease the oxygen per canula to 1.5 to 2 liters. Condition is stable. We will start him on Lexapro tomorrow as an antidepressant. The patient is already on Cymbalta that is for his neuropathy pain. TIME SPENT: More than 30 minutes. Plan and coordination of the patient's care discussed in the presence of nurse. MATTHEW
--- NOTE | 2020-11-24 14:26 | PN ---
DATE OF SERVICE: 11/21/20 SUBJECTIVE: The patient sitting up in bed eating breakfast, states he is feeling well. Leg edema has significantly improved. BUN is up a few points but did have IV Lasix yesterday due to worsening leg edema and some pulmonary edema noted on the chest x-ray. He has not had any changes in his respiratory status. No labored breathing. He states he is feeling well. I did talk with the on the phone this morning. Our plan is for swing bed. Will possibly due that maybe tomorrow as long as his kidney function has leveled off. REVIEW OF SYSTEMS: CONSTITUTIONAL: Weakness. No night sweats. No fatigue, malaise, lethargy. No fever or chills. HEENT: Eyes: No visual changes. No eye pain. No eye discharge. ENT: No runny nose. No epistaxis. No sinus pain. No sore throat. No odynophagia. No congestion. RESPIRATORY: No cough, no congestion. No hemoptysis. No shortness of breath. CARDIOVASCULAR: No angina symptoms. No CHF symptoms. No atypical chest pain for CAD. No palpitations. No PND. No orthopnea. GASTROINTESTINAL: No abdominal pain. No nausea or vomiting. No diarrhea or constipation. No hematemesis. No hematochezia. GENITOURINARY: No urgency. No frequency. No dysuria. No hematuria. No obstructive symptoms. No discharge. No pain. No significant abnormal bleeding. MUSCULOSKELETAL: Improving leg edema. No musculoskeletal pain; no joint swelling. NEUROLOGICAL: No headache. No neck pain. No syncope. No seizures. No dizziness. PSYCHIATRIC: Not anxious. No depression. No suicidal thoughts. No homicidal thoughts. SKIN: No rash. No lesions. No wounds. ENDOCRINE: No unexplained weight loss. No weight gain. HEMATOLOGIC/LYMPHATIC: No anemia. No purpura. No petechiae. No prolonged or excessive bleeding. No palpable lymph nodes. PHYSICAL EXAMINATION: VITAL SIGNS: Normal with oxygen saturation 97% on his 2L, blood pressure 116/77, respirations 18, heart rate 73, temperature 96.9. HEENT: Head normocephalic, atraumatic. Eyes: Extraocular muscles are intact. Pupils are equal, round and reactive to light and accommodation. Ears: No lesions. Nose appeared normal. Throat: No exudate or erythema. NECK: Supple. No JVD, no carotid bruit. No lymphadenopathy or thyromegaly. LUNGS: Diminished breath sounds but clear to auscultation. Percussion note normal. Chest symmetrical. HEART: S1, S2, no S3. No murmurs. No cyanosis or clubbing. No ascites. Pulses: Dorsalis pedis and posterior tibial pulses +1 to +2 bilaterally. ABDOMEN: Soft. Nontender. Bowel sounds active. No CVA tenderness. No mass felt. EXTREMITIES: Trace bilateral leg edema. Full range of motion of all extremities, equal. NEUROLOGIC: No focal deficit. Cranial nerves II through XII are grossly intact. No headache. No double vision. SKIN: Not dry. Intact. Turgor - normal. LYMPHATIC: No palpable lymph nodes/no lymphedema. MUSCULOSKELETAL: Normal joints with no swelling. Muscle tone is normal. LABS: BUN 61, creatinine 1.52, sodium 129, potassium 4.3. Hemoglobin 13.2, hematocrit 40.7, platelets 102. ASSESSMENT: 1. BILATERAL PNEUMONITIS 2. RENAL AZOTEMIA 3. UNDERLYING CHRONIC KIDNEY DISEASE, STAGE 3 4. CHRONIC ANEMIA 5. DIASTOLIC HEART FAILURE 6. COR PULMONALE 7. GENERALIZED WEAKNESS PLAN: 1. Will do NS IV at 50 cc/hr just times one bag today. 2. He is to be up and about as tolerated. 3. Again we will plan on swing bed possibly tomorrow and this has been discussed with both the patient and his . Otherwise, everything is stable. 4. Will follow closely. TIME SPENT: More than 30 minutes. Plan and coordination of the patient's care discussed in the presence of nurse. MATTHEW
== END 2020-11-23 10:16 | disposition swing bed (61) | DRG 690 ==
LOC: ED 22:19 → MEDSURG A 11-17 03:42
PROVIDERS: ADMIT Internal Medicine; ATTEND Internal Medicine
DX: R26.81 Unsteadiness on feet; N18.30 Chronic kidney disease, stage 3 unspecified; N39.0 Urinary tract infection, site not specified; J44.9 Chronic obstructive pulmonary disease, unspecified; Z20.822 Contact with and (suspected) exposure to COVID-19; E87.1 Hypo-osmolality and hyponatremia; R53.1 Weakness; J96.10 Chronic respiratory failure, unspecified whether with hypoxia or hypercapnia; E11.9 Type 2 diabetes mellitus without complications; R06.02 Shortness of breath; R60.0 Localized edema; Z99.81 Dependence on supplemental oxygen; R79.89 Other specified abnormal findings of blood chemistry; I48.91 Unspecified atrial fibrillation; I50.30 Unspecified diastolic (congestive) heart failure

== ENCOUNTER 2020-12-28 15:24 | Inpatient (IN) ==
[2020-12-28] MEDS ORDERED: SODIUM CHLORIDE 1,000 ML IV STA ×2 (15:47→17:24)
[2020-12-28 16:07] LABS: BASOPHILS # (AUTO) 0.1 K/uL (0-0.2); BASOPHILS % (AUTO) 0.3 % (0.0-3.0); EOSINOPHILS % (AUTO) 0.1 % (0.0-7.0); HEMATOCRIT 36.5 % (42.0-52.0); HEMOGLOBIN 12.2 g/dl (14.0-18.0); IMMATURE GRANULOCYTE # (AUTO) 0.2 (0.0-1.0); IMMATURE GRANULOCYTE % (AUTO) 1.1 % (0.0-5.0); LYMPHOCYTES # (AUTO) 0.5 K/uL (0.60-3.4); LYMPHOCYTES % (AUTO) 3.3 (10.0-50.0); MEAN CORPUSCULAR HEMOGLOBIN 28.6 pg (27.0-31.0); MEAN CORPUSCULAR HGB CONC 33.4 (31.8-35.4); MEAN CORPUSCULAR VOLUME 85.5 fl (80.0-94.0); MONOCYTES # (AUTO) 1.4 K/uL (0.4-2.0); NEUTROPHILS # (AUTO) 13.2 K/ul (2.0-6.9); NEUTROPHILS % (AUTO) 86.2 % (42.2-75.2); PLATELET COUNT 255 10^3/uL (140-440); RDW COEFFICIENT OF VARIATION 19.6 % (11.6-14.8); RED BLOOD COUNT 4.27 10^6/ul (4.70-6.10); WHITE BLOOD COUNT 15.29 K/ul (4.2-10.2)
--- NOTE | 2020-12-28 16:10 | DI ---
EXAM: Single portable AP view of the chest 12/28/2020 HISTORY: Weakness. COMPARISON: 12/09/2020. FINDINGS: There is trace right pleural effusion, with adjacent atelectasis/consolidation.There is left basilar atelectasis. The trachea is midline. The cardiomediastinal silhouette is within the normal limits. The aorta is atherosclerotic. The osseous structures are degenerative. IMPRESSIONS: 1. Trace right pleural effusion, with adjacent atelectasis/consolidation. 2. Left basilar atelectasis.
[2020-12-28 16:19] LABS: ALANINE AMINOTRANSFERASE 14.5 U/L (0-50); ALBUMIN 3.27 g/dL (3.5-5.0); ALKALINE PHOSPHATASE 101.9 U/L (56-119); ASPARTATE AMINO TRANSFERASE 37.3 U/L (17-59); BILIRUBIN,TOTAL 2.04 mg/dL (0.2-1.3); BLOOD UREA NITROGEN 43.9 mg/dL (9-20); CALCIUM 7.72 mg/dL (8.4-10.2); CARBON DIOXIDE 38.3 mmol/L (22-30.0); CREATININE 1.2 mg/dL (0.60-1.10); GLUCOSE 168.1 mg/dL (74-106); SODIUM 128.1 mmol/L (134.5-145); TOTAL PROTEIN 6.54 g/dL (6.3-8.2)
[2020-12-28 16:21] LABS: POTASSIUM 2.02 mmol/L (3.5-5.1)
[2020-12-28] MEDS ORDERED: POTASSIUM CHLORIDE 20 MEQ/100 ML PREMIX 20 MEQ/100 ML BAG IV STA ×2 (16:21→18:15)
[2020-12-28] MEDS ORDERED: K-DUR PO ONE (16:21)
[2020-12-28 16:42] LABS: BORDETELLA PARAPERTUSSIS (PCR) NOT DETECTED (NOT DETECT); BORDETELLA PERTUSSIS (PCR) NOT DETECTED (NOT DETECT); CHLAMYDIA PNEUMONIAE (PCR) NOT DETECTED (NOT DETECT); CORONAVIRUS 229E (PCR) NOT DETECTED (NOT DETECT); CORONAVIRUS HKU1 (PCR) NOT DETECTED (NOT DETECT); CORONAVIRUS NL63 (PCR) NOT DETECTED (NOT DETECT); CORONAVIRUS OC43 (PCR) NOT DETECTED (NOT DETECT); HUMAN METAPNEUMOVIRUS (PCR) NOT DETECTED (NOT DETECT); HUMAN RHINOVIRUS/ENTEROV (PCR) NOT DETECTED (NOT DETECT); INFLUENZA B (PCR) NOT DETECTED (NOT DETECT); MYCOPLASMA PNEUMONIAE (PCR) NOT DETECTED (NOT DETECT); PARAINFLUENZA VIRUS 1 (PCR) NOT DETECTED (NOT DETECT); PARAINFLUENZA VIRUS 2 (PCR) NOT DETECTED (NOT DETECT); PARAINFLUENZA VIRUS 3 (PCR) NOT DETECTED (NOT DETECT); PARAINFLUENZA VIRUS 4 (PCR) NOT DETECTED (NOT DETECT); RESPIRATORY SYNCYTIAL V (PCR) NOT DETECTED (NOT DETECT); SARS_COV_2 (PCR) NOT DETECTED (NOT DETECT)
--- NOTE | 2020-12-28 17:07 | CT ---
EXAM: CT of the head without contrast History: Weakness. Comparison: Head CT 12/09/2020 Technique: Multiplanar CT images through the head were obtained without the administration of IV con trast Findings: Mucosal thickening and small amount of fluid seen within the left sphenoid sinus. There i s motion artifact. Mastoid air cells are clear. Intracranially there are atherosclerotic vascular calcifications. The ventricular and cisternal spaces are normal in size, shape and configuration for a patient of thi s age. No dominant mass or midline shift. No hydrocephalous. No acute intracranial hemorrhage or a bnormal extraaxial fluid collections. 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 Impression: 1. No acute intracranial process. 2. 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 3. Left sphenoid sinusitis All CT scans are performed using dose optimization techniques as appropriate to the performed exam an d include at least one of the following: Automated exposure control, adjustment of the mA and/or kV according t o size, and the use of iterative reconstruction technique.
--- NOTE | 2020-12-28 17:21 | CT ---
EXAM: CT cervical spine without contrast. HISTORY: Fall COMPARISON: None TECHNIQUE: Serial axial images of the cervical spine were obtained from the skull base through the l moses apices without contrast. These were viewed in multiple planes. FINDINGS: Vertebral bodies demonstrate no acute compression fracture. There is trace anterolisthesi s of C5 on C6. There is narrowing from C4-C7 with anterior posterior disc osteophytes. There is sev ere facet arthropathy. Posterior processes are normal. The odontoid process is unremarkable. C1 ri ng is intact. The soft tissues are unremarkable. IMPRESSION: 1. No acute compression fracture with trace anterolisthesis of C5 on C6. 2. 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 All CT scans are performed using dose optimization techniques as appropriate to the performed exam an d include at least one of the following: Automated exposure control, adjustment of the mA and/or kV according t o size, and the use of iterative reconstruction technique.
[2020-12-28] MEDS ORDERED: CALCIUM 500 + VIT D 5 MCG (200 IU) TABLET PO ONE (17:25)
[2020-12-28 17:31] LABS: ADENOVIRUS (PCR) NOT DETECTED (NOT DETECT)
[2020-12-28] MEDS ORDERED: ROCEPHIN 1 GM/50 ML D5W 1 GM/50 ML BAG IV ONE (17:36)
--- NOTE | 2020-12-28 17:46 | ED.PDOC ---
General ED Provider: Dr. DEAN FRANKLIN MD Chief Complaint: Non-specific Complaint Stated Complaint: generalized weakness and mild BUCKLEY x this PM. potassium was 1.8 Time Seen by Provider: 12/28/20 15:32 Mode of Arrival: Ambulance Information Source: Patient Exam Limitations: No limitations Primary Care Provider: SPARKLE MART Nursing and Triage Documentation Reviewed and Agree: Yes Does patient meet sepsis criteria?: No System Inflammatory Response Syndrome: Not Applicable Sepsis Protocol: For patient's 13 years and over: Temp is 96.8 and below OR 101 and greater Pulse >90 BPM Resp >20/minute Acutely Altered Mental Status Are patient's symptoms suggestive of a new infection, such as: -Pneumonia -Skin, Soft Tissue -Endocarditis -UTI -Bone, Joint Infection -Implantable Device -Acute Abdominal Infection -Wound Infection -Meningitis -Blood Stream Catheter Infection -Unknown Neurological Complaint Exam Weakness Complaint/Exam Last Known Well: 3 days ago Onset: Gradual Duration: 3 days Symptoms Are: Still present Timing: Constant Episodes Lasting: Days Initial Severity: Mild Current Severity: Mild Character: Reports Weak Aggravating: Reports Position change JVD Present: No Carotid Bruit Present: No Glascow Coma Scale (see protocol): 15 Gag Reflex Present: Yes Meningeal Signs Positive: Yes Focal Weakness: Present None Focal Sensory Loss: Present None Differential Diagnoses: Dysrhythmia, Metabolic abnormalities and Vasovagal reaction Review of Systems Review Of Systems Constitutional: Reports No symptoms Eyes: Reports No symptoms Ears, Nose, Mouth, Throat: Reports No symptoms Respiratory: Reports No symptoms Cardiac: Reports Irregular heart rate and Palpitations GI: Reports No symptoms : Reports No symptoms Musculoskeletal: Reports No symptoms Skin: Reports No symptoms Neurological: Reports No symptoms Endocrine: Reports No symptoms Hematologic/Lymphatic: Reports No symptoms All Other Systems: Reviewed and Negative [facility] Medical History A-fib Brain bleed CHF (congestive heart failure) Chronic bronchitis with COPD (chronic obstructive pulmonary disease) Chronic kidney disease, stage 3 Chronic respiratory failure COPD (chronic obstructive pulmonary disease) Cor pulmonale (chronic) Dementia Diabetes mellitus, type 2 Diastolic heart failure Dyslipidemia End stage COPD History of fall Hypertension Hypokalemia Hypothyroid Lumbar radiculopathy Osteoarthritis Oxygen dependent Peripheral vascular disease Renal azotemia Sciatica Family History FATHER Heart attack Mother Diabetes Social History Smoking and tobacco status: Never smoker History of recent travel: No Surgical History H/O hernia repair Status post left foot surgery Physical Exam Physical Exam Appearance: Reports Ill-appearing Ill-appearing: Mild Pain Distress: None Eyes: Reports ELIZA, EOMI and Conjunctiva clear ENT: Reports Ears normal, Nose normal and Oropharynx normal Neck: Supple Respiratory: Reports Airway patent and Breath sounds clear Cardiovascular: Reports RRR, Pulses normal, No rub and No murmur GI/: Reports Soft and Nontender Musculoskeletal: Reports Normal strength, ROM intact, No edema and No calf tenderness Skin: Reports Warm, Dry and Normal color Neurological: Reports Sensation intact, Motor intact, Reflexes intact, Cranial nerves intact, Alert and Oriented Psychiatric: Reports Affect appropriate and Depressed Interpretation Radiology Interpretation Radiology Interpretation By: Radiologist Exam Interpreted: CXR and CT Scan Re-Evaluation Re-Evaluation Time of Re-Evaluation: 16:25 Status: Improved Vital Signs Stable: Yes Pain Level: 0 Lungs: Clear Skin: Warm and Dry Neuro: Alert and Oriented X3 CV: RRR (irregularly irregular pulse) Critical Care Note Critical Care Note Total Critical Care Time (mins): 30 Course Course Hematology/Chemistry: 12/28/20 16:02 12/28/20 16:02 Orders, Labs, Meds: Lab Review 12/28/20 12/28/20 12/28/20 16:02 16:02 16:35 WBC 15.29 H RBC 4.27 L Hgb 12.2 L Hct 36.5 L MCV 85.5 MCH 28.6 MCHC 33.4 RDW Coeff of Marek 19.6 H Plt Count 255 Immature Gran % (Auto) 1.1 Neut % (Auto) 86.2 H Lymph % (Auto) 3.3 L [place] % (Auto) 9.0 Eos % (Auto) 0.1 Baso % (Auto) 0.3 Neut # (Auto) 13.2 H Lymph # (Auto) 0.5 L [place] # (Auto) 1.4 Eos # (Auto) 0.0 Baso # (Auto) 0.1 Immature Gran # (Auto) 0.2 Sodium 128.1 L Potassium 2.02 L* Chloride 83.0 L Carbon Dioxide 38.3 H Anion Gap 8.82 BUN 43.9 H Creatinine 1.20 H Estimated GFR (MDRD) 58.00 BUN/Creatinine Ratio 36.58 Glucose 168.1 H Calcium 7.72 L Total Bilirubin 2.04 H AST 37.3 ALT 14.5 Alkaline Phosphatase 101.9 Total Protein 6.54 Albumin 3.27 L Globulin 3.27 Albumin/Globulin Ratio 1.00 Adenovirus (PCR) Not detected B. pertussis DNA (PCR) Not detected B.parapertussis DNA PCR Not detected C. pneumoniae DNA (PCR) Not detected Coronavirus OC43 (PCR) Not detected Coronavirus HKU1 (PCR) Not detected Coronavirus 229E (PCR) Not detected Coronavirus NL63 (PCR) Not detected Human Metapneumovir PCR Not detected Influenza Type A (PCR) Not detected Influenza B (RT-PCR) Not detected M. pneumoniae (PCR) Not detected Parainfluenza 1 (PCR) Not detected Parainfluenza 2 (PCR) Not detected Parainfluenza 3 (PCR) Not detected Parainfluenza 4 (PCR) Not detected RSV (PCR) Not detected Entero/Rhino (PCR) Not detected SARS-CoV-2 (PCR) Not detected Orders Category Date Time Status EKG-(ED ONLY) Stat CARDIO 12/28/20 15:47 Completed ED IV/MEDIPORT/POWERPORT .ONCE EMERGENCY 12/28/20 15:47 Active BLOOD CULTURE (ED ONLY) Stat LAB 12/28/20 Ordered CBC W/ AUTO DIFF Stat LAB 12/28/20 16:02 Completed COMPREHENSIVE METABOLIC PANEL Stat LAB 12/28/20 16:02 Completed RESPIRATORY PANEL 2.1 (PCR) Stat LAB 12/28/20 16:35 Completed URINALYSIS C & S IF INDICATED Stat LAB 12/28/20 15:47 Uncollected URINALYSIS C & S IF INDICATED Stat LAB 12/28/20 17:26 Uncollected 0.9 % Sodium Chloride [Saline Flush] MEDS 12/28/20 15:47 Active 1 syr IVF PRN PRN Calcium Carbonate/Vitamin D3 [Calcium 500 + Vit D 5 Mcg MEDS 12/28/20 17:25 Discontinued (200 Iu) Tablet] 1 each PO ONCE ONE Ceftriaxone/D5w 1 gm Premix [Rocephin 1 gm/50 ml D5w] MEDS 12/28/20 17:36 Active 1 gm in 50 ml IV ONCE Potassium Chloride [K-Dur] MEDS 12/28/20 16:21 Discontinued 40 meq PO ONCE ONE Potassium Chloride [Potassium Chloride 20 Meq/100 ml MEDS 12/28/20 16:21 Active Premix] 20 meq in 100 ml IV ONCE Sodium Chloride 0.9% [Sodium Chloride] 1,000 ml MEDS 12/28/20 17:24 Active IV 100 mls/hr Sodium Chloride 0.9% [Sodium Chloride] 1,000 ml MEDS 12/28/20 15:47 Active IV 125 mls/hr CHEST, 1V AP ONLY Stat RADS 12/28/20 15:[address] CERVICAL SPINE W/O CONTRAST Stat RADS 12/28/20 16:[address] HEAD W/O CONTRAST Stat RADS 12/28/20 15:47 Completed Medications Generic Name Dose Route Start Last Admin Trade Name Freq PRN Reason Stop Dose Admin Sodium Chloride 1,000 mls @ 125 mls/hr 12/28/20 15:47 12/28/20 16:34 Sodium Chloride IV 12/28/20 23:46 125 mls/hr .Q8H STA Administration Potassium Chloride 20 meq in 100 mls @ 50 mls/hr 12/28/20 16:21 12/28/20 16:35 Potassium Chloride 20 Meq/100 Ml Premix IV 12/28/20 18:20 50 mls/hr ONCE STA Administration Sodium Chloride 1,000 mls @ 100 mls/hr 12/28/20 17:24 Sodium Chloride IV 12/29/20 03:23 .Q10H STA CEFTRIAXONE/D5W 1 GM PREMIX 1 gm in 50 mls @ 75 mls/hr 12/28/20 17:36 Rocephin 1 Gm/50 Ml D5w IV 12/28/20 18:15 ONCE ONE Sodium Chloride 1 syr 12/28/20 15:47 0.9% Sodium Chloride 10 Ml Disp.Syrin IVF PRN PRN To flush IV Discontinued Medications Generic Name Dose Route Start Last Admin Trade Name Freq PRN Reason Stop Dose Admin Calcium/Vitamin D 1 each 12/28/20 17:25 Calcium Carbonate/Vitamin D3 500 Mg/5 Mcg(200iu) 1 Each Tablet PO 12/28/20 17:26 ONCE ONE Potassium Chloride 40 meq 12/28/20 16:21 12/28/20 16:34 Potassium Chloride 20 Meq Tab PO 12/28/20 16:22 40 meq ONCE ONE Administration Vital Signs: Temp Pulse Resp BP Pulse Ox 12/28/20 15:27 96.6 F L 76 21 98/67 92 L Discharge Plan Discharge Patient Disposition: ADMITTED INPATIENT Discharge Problem: Episode of generalized weakness, Chronic hypokalemia, Hyponatremia Prescriptions: No Action levothyroxine [Synthroid] 125 MCG tablet 125 mcg PO DAILY RF: 0 simvastatin 5 MG tablet 5 mg PO BEDTIME RF: 0 Lantus U-100 Insulin 1 UNIT solution 20 units subcut BEDTIME RF: 0 zinc sulfate 220 mg Capsule 220 mg PO DAILY RF: 0 carvedilol [Coreg] 3.125 mg Tablet 3.125 mg PO BID RF: 0 famotidine [Pepcid] 20 mg Tablet 20 mg PO DAILY RF: 0 cholecalciferol (vitamin D3) [Vitamin D3] 25 mcg (1,000 unit) Tablet 5,000 unit PO DAILY RF: 0 potassium chloride [K-Tab] 20 mEq Tablet Extended Release 20 meq PO TID Qty: 90 RF: 3 alprazolam 0.5 mg Tablet 0.5 mg PO BEDTIME PRN (Reason: Anxiety) RF: 0 metolazone 2.5 mg Tablet 2.5 mg PO BS RF: 0 cephalexin 500 mg Tablet 500 mg PO TID RF: 0 Tradjenta 5 mg Tablet 5 mg PO DAILY RF: 0 bumetanide 1 mg tablet 2 mg PO DAILY RF: 0 Eliquis 2.5 MG tablet 2.5 mg PO BID RF: 0 duloxetine [Cymbalta] 60 mg Capsule,Delayed Release(Dr/Ec) 60 mg PO DAILY RF: 0 albuterol sulfate [ProAir HFA] 90 mcg/actuation Hfa Aerosol Inhaler 2 puff INHALATION Q6H Qty: 18 RF: 0 acetaminophen [Tylenol] 325 mg Capsule 650 mg PO TID PRN (Reason: Pain) Qty: 90 RF: 0 bisacodyl [Dulcolax (bisacodyl)] 5 mg Tablet,Delayed Release (Dr/Ec) 5 mg PO QDAY PRN (Reason: Constipation) Qty: 1 RF: 0 diltiazem HCl 60 mg Capsule,Extended Release 12 Hr 60 mg PO BID Qty: 60 RF: 0 escitalopram oxalate [Lexapro] 5 mg Tablet 5 mg PO DAILY Qty: 30 RF: 0 Humulin R Regular U-100 Insuln 100 unit/mL Solution 1 sliding scale dose SUBCUT DIRECTED Qty: 10 RF: 0 Atrovent HFA 17 mcg/actuation Hfa Aerosol Inhaler 2 puff INHALATION Q6HR Qty: 18 RF: 0 magnesium hydroxide 400 mg/5 mL Suspension 30 ml PO DAILY PRN (Reason: Constipation) Qty: 30 RF: 0 nystatin 100,000 unit/gram Powder 1 applic TOPICAL TID Qty: 15 RF: 0 polyethylene glycol 3350 [Miralax] 17 gram/dose Powder 17 g PO DAILY PRN (Reason: Constipation) Qty: 510 RF: 0 Saccharomyces boulardii [Florastor] 250 mg Capsule 250 mg PO BID Qty: 60 RF: 0 tramadol 50 mg Tablet 50 mg PO BID Qty: 60 RF: 2 ED Provider: DEAN FRANKLIN Condition: Serious Physician Progress Note: []Pt was d/w Dr Mart and admitted.
[2020-12-28] MEDS ORDERED: TYLENOL PO PRN (18:10)
[2020-12-28] MEDS ORDERED: DULCOLAX PO PRN (18:21)
[2020-12-28] MEDS ORDERED: MILK OF MAGNESIA PO PRN (18:21)
[2020-12-28] MEDS ORDERED: XANAX PO PRN (18:21)
[2020-12-28] MEDS ORDERED: ZAROXOLYN PO SCH (18:30)
[2020-12-28] MEDS ORDERED: VENTOLIN HFA (PER PUFF-WITH SPACER) IH SCH (18:30)
[2020-12-28] MEDS ORDERED: K-DUR PO SCH (18:30)
[2020-12-28] MEDS ORDERED: INSULIN REGULAR HUMAN 100 UNIT/ML SUBCUT SCH (18:30)
[2020-12-28] MEDS ORDERED: COREG PO SCH (21:00)
[2020-12-28] MEDS ORDERED: NITROSTAT SL PRN (21:17)
[2020-12-28] MEDS ORDERED: ATROPINE SULFATE PFS IVP PRN (21:17)
[2020-12-28 21:34] LABS: ALBUMIN 3.4 g/dL (3.5-5.0); BILIRUBIN,TOTAL 2.3 mg/dL (0.2-1.3); CALCIUM 7.9 mg/dL (8.4-10.2); CREATININE 1.2 mg/dL (0.60-1.10); TOTAL PROTEIN 6.8 g/dL (6.3-8.2)
[2020-12-28 21:46] LABS: CREATINE KINASE 22.5 U/L (55-170)
[2020-12-28] MEDS: NYSTOP POWDER TP SCH (21:57)
[2020-12-28] MEDS: FLORASTOR PO SCH (21:58)
[2020-12-28] MEDS: ULTRAM PO SCH (21:58)
[2020-12-28] MEDS: ZOCOR PO SCH (21:58)
[2020-12-28 21:59] LABS: TROPONIN I 0.048 ng/ml (0.0000-0.120)
[2020-12-28] MEDS: ELIQUIS PO SCH (22:00)
[2020-12-28] MEDS: LANTUS SUBCUT SCH (22:01)
[2020-12-28] MEDS: SODIUM CHLORIDE 0.9%-KCL 20 MEQ 1,000 ML IV SCH (22:02)
[2020-12-28 22:24] VITALS: BMI 21.6
[2020-12-28] MEDS: VENTOLIN HFA (PER PUFF-WITH SPACER) IH SCH (23:14)
[2020-12-28] MEDS: ATROVENT HFA INHALER (PER PUFF-WITH SPACER) IH SCH (23:14)
[2020-12-29] MEDS ORDERED: ATROVENT HFA INHALER (SINGLE PATIENT USE) IH SCH
[2020-12-29] MEDS ORDERED: HUMULIN R SUBCUT PRN ×2 (00:18→17:00)
[2020-12-29 02:36] LABS: BILIRUBIN,URINE Negative (NEGATIVE); CLARITY,URINE Clear (CLEAR); COLOR,URINE Yellow (YELLOW); GLUCOSE, URINE (UA) Negative (NEGATIVE); KETONES,URINE Negative (NEGATIVE); LEUKOCYTE ESTERASE ,URINE Trace (NEGATIVE); NITRITE,URINE Negative (NEGATIVE); PROTEIN,URINE Negative (NEGATIVE); URINE, BLOOD Negative (NEGATIVE)
[2020-12-29 02:43] LABS: RENAL EPITHELIAL CELLS,URINE 0-2 (NOT PRESENT); SQUAMOUS EPITHELIAL CELL,UR 0-2 (0-5)
[2020-12-29] MEDS: VENTOLIN HFA (PER PUFF-WITH SPACER) IH SCH ×4 (05:14→23:00)
[2020-12-29] MEDS: ATROVENT HFA INHALER (PER PUFF-WITH SPACER) IH SCH ×4 (05:14→23:00)
[2020-12-29 05:32] LABS: HEMATOCRIT 36.1 % (42.0-52.0); HEMOGLOBIN 11.6 g/dl (14.0-18.0); MEAN CORPUSCULAR HGB CONC 32.1 (31.8-35.4); MEAN CORPUSCULAR VOLUME 87.2 fl (80.0-94.0); PLATELET COUNT 243 10^3/uL (140-440); RDW COEFFICIENT OF VARIATION 19.9 % (11.6-14.8); RED BLOOD COUNT 4.14 10^6/ul (4.70-6.10); WHITE BLOOD COUNT 14.22 K/ul (4.2-10.2)
[2020-12-29] MEDS: SYNTHROID PO SCH ×2 (05:38)
[2020-12-29 05:40] LABS: ANISOCYTOSIS NOT PRESENT (NOT PRESENT)
[2020-12-29 05:44] LABS: ALANINE AMINOTRANSFERASE 12.9 U/L (0-50); ALBUMIN 3.15 g/dL (3.5-5.0); ALKALINE PHOSPHATASE 92.6 U/L (56-119); ASPARTATE AMINO TRANSFERASE 30.4 U/L (17-59); BILIRUBIN,TOTAL 1.57 mg/dL (0.2-1.3); BLOOD UREA NITROGEN 40.1 mg/dL (9-20); CALCIUM 7.41 mg/dL (8.4-10.2); CARBON DIOXIDE 37.3 mmol/L (22-30.0); CHLORIDE 90.5 mmol/L (98-107); CREATININE 1.15 mg/dL (0.60-1.10); GLUCOSE 114.7 mg/dL (74-106); SODIUM 132.4 mmol/L (134.5-145); TOTAL PROTEIN 6.13 g/dL (6.3-8.2)
[2020-12-29 05:54] LABS: CREATINE KINASE < 20.0 U/L (55-170); POTASSIUM 2.69 mmol/L (3.5-5.1)
[2020-12-29 05:55] LABS: TROPONIN I 0.044 ng/ml (0.0000-0.120)
[2020-12-29] MEDS ORDERED: K-DUR PO SCH ×4 (06:00→12:00)
[2020-12-29] MEDS ORDERED: HUMULIN R SUBCUT SCH (06:30)
[2020-12-29] MEDS: COREG PO SCH ×2 (08:42→17:02)
[2020-12-29] MEDS: ZINC-220 PO SCH (08:42)
[2020-12-29] MEDS: VITAMIN D PO SCH (08:42)
[2020-12-29] MEDS: ULTRAM PO SCH ×2 (08:42→20:14)
[2020-12-29] MEDS: FLORASTOR PO SCH ×2 (08:43→20:14)
[2020-12-29] MEDS: PEPCID PO SCH (08:43)
[2020-12-29] MEDS: CYMBALTA PO SCH (08:43)
[2020-12-29] MEDS: TRADJENTA PO SCH (08:43)
[2020-12-29] MEDS: CARDIZEM PO SCH ×2 (08:44→20:14)
[2020-12-29] MEDS: LEXAPRO PO SCH (08:44)
[2020-12-29] MEDS: NYSTOP POWDER TP SCH ×3 (08:44→20:18)
--- NOTE | 2020-12-29 08:44 | PCM.PROG ---
Attending Provider: ATTENDING PROVIDER: Dr. SPARKLE MART This patient is seen with Cary Xavier, Nurse Practitioner. DATE OF SERVICE: 12/29/20 SUBJECTIVE: This 85 year old /WHITE M was hospitalized 12/28/20. The patient is resting comfortably. Potassium improved this morning. The patient states that he is feeling some better. Chest x-ray and urinalysis was normal. REVIEW OF SYSTEMS: CONSTITUTIONAL: No night sweats. No fatigue, malaise, lethargy. No fever or chills. Weakness. HEENT: Eyes: No visual changes. No eye pain. No eye discharge. ENT: No runny nose. No epistaxis. No sinus pain. No odynophagia. No congestion. RESPIRATORY: No cough, no congestion. No hemoptysis. No shortness of breath. CARDIOVASCULAR: No angina symptoms. No CHF symptoms. No atypical chest pain for CAD. No palpitations. No orthopnea.. GASTROINTESTINAL: No abdominal pain. No nausea or vomiting. No diarrhea or constipation. No hematemesis. No hematochezia. GENITOURINARY: No urgency. No frequency. No dysuria. No hematuria. No obstructive symptoms. No discharge. No pain. No significant abnormal bleeding. MUSCULOSKELETAL: No musculoskeletal pain; no joint swelling. NEUROLOGICAL: Awake, alert, oriented to time, place and person. No headache. No neck pain. No syncope. No seizures. No dizziness. PSYCHIATRIC: Not anxious. No depression. No suicidal thoughts. No homicidal thoughts. SKIN: No rash. No lesions. No wounds. ENDOCRINE: No unexplained weight loss. No weight gain. HEMATOLOGIC/LYMPHATIC: No anemia. No purpura. No petechiae. No prolonged or excessive bleeding. No palpable lymph nodes. PHYSICAL EXAMINATION: GENERAL: The patient is awake, alert and oriented, lying in bed in no distress. VITAL SIGNS: Temperature 97.8 F, Pulse 87, Respiratory Rate 18, BP 125/88, Pulse Ox 99% HEENT: Head normocephalic, atraumatic. Eyes: Extraocular muscles are intact. Pupils are equal, round and reactive to light and accommodation. Ears: No lesions. Nose appeared normal. Throat: No exudate or erythema. NECK: Supple. No JVD, no carotid bruit. No lymphadenopathy or thyromegaly. LUNGS: Diminished breath sounds. Clear to auscultation. Percussion note normal. Chest symmetrical. HEART: Irregular heart rate. S1, S2, no S3. No murmurs. No cyanosis or clubbing. No ascites. Pulses: Dorsalis pedis and posterior tibial pulses +1 to +2 both sides. ABDOMEN: Soft. Non-tender. Bowel sounds active. No CVA tenderness. No mass felt. EXTREMITIES: No edema. Full range of motion of all extremities, equal. NEUROLOGIC: No focal deficit. Cranial nerves II through XII are grossly intact. No headache. No double vision. SKIN: Not dry. Intact. Turgor-normal. LYMPHATIC: No palpable lymph nodes/no lymphedema. MUSCULOSKELETAL: Normal joints with no swelling. Muscle tone is normal. LAB REVIEW: 12/29/20 05:30 12/29/20 05:30 12/29/20 05:30: Sodium 132.4 L, Potassium 2.69 L*, Chloride 90.5 L, Carbon Dioxide 37.3 H, Anion Gap 7.29, BUN 40.1 H, Creatinine 1.15 H, Estimated GFR (MDRD) 60.00, BUN/Creatinine Ratio 34.86, Glucose 114.7 H, Calcium 7.41 L, Total Bilirubin 1.57 H, AST 30.4, ALT 12.9, Alkaline Phosphatase 92.6 D, Total Creatine Kinase < 20.0 L, Troponin I 0.044, Total Protein 6.13 L, Albumin 3.15 L , Globulin 2.98, Albumin/Globulin Ratio 1.05 12/29/20 05:30: WBC 14.22 H, RBC 4.14 L, Hgb 11.6 L, Hct 36.1 L, MCV 87.2, MCH 28.0, MCHC 32.1, RDW Coeff of Marek 19.9 H, Plt Count 243, Neutrophils % (Manual) 85.0 H, Lymphocytes % (Manual) 3.0 L, Monocytes % (Manual) 12.0 H, Anisocytosis Not present 12/29/20 02:30: Urine Color Yellow, Urine Clarity Clear, Urine pH 6.0, Ur Specific [place] 1.015, Urine Protein Negative, Urine Glucose (UA) Negative, Urine Ketones Negative, Urine Blood Negative, Urine Nitrite Negative, Urine Bilirubin Negative, Urine Urobilinogen 1.0 H, Ur Leukocyte Esterase Trace H, Urine Microscopic WBC 2-5, Ur Squamous Epith Cells 0-2, Ur Renal Epithelial Cell 0-2 12/28/20 21:17: Sodium 130.0 L, Potassium 3.00 L, Chloride 84.0 L, Carbon Dioxide 38.0 H, Anion Gap 11.00, BUN 42.0 H, Creatinine 1.20 H, Estimated GFR (MDRD) 58.00, BUN/Creatinine Ratio 35.00, Glucose 156.0 H, Calcium 7.90 L, Total Bilirubin 2.30 H, AST 37.0, ALT 15.0, Alkaline Phosphatase 118.0, Total Creatine Kinase 22.5 L, Troponin I 0.048, Total Protein 6.80, Albumin 3.40 L, Globulin 3.40, Albumin/Globulin Ratio 1.00 12/28/20 16:35: Adenovirus (PCR) Not detected, B. pertussis DNA (PCR) Not detected, B.parapertussis DNA PCR Not detected, C. pneumoniae DNA (PCR) Not detected, Coronavirus OC43 (PCR) Not detected, Coronavirus HKU1 (PCR) Not detected, Coronavirus 229E (PCR) Not detected, Coronavirus NL63 (PCR) Not detected, Human Metapneumovir PCR Not detected, Influenza Type A (PCR) Not detected, Influenza B (RT-PCR) Not detected, M. pneumoniae (PCR) Not detected, Parainfluenza 1 (PCR) Not detected, Parainfluenza 2 (PCR) Not detected, Parainfluenza 3 (PCR) Not detected, Parainfluenza 4 (PCR) Not detected, RSV (PCR) Not detected, Entero/Rhino (PCR) Not detected, SARS-CoV-2 (PCR) Not detected 12/28/20 16:02: Sodium 128.1 L, Potassium 2.02 L*, Chloride 83.0 L, Carbon Dioxide 38.3 H, Anion Gap 8.82, BUN 43.9 H, Creatinine 1.20 H, Estimated GFR (MDRD) 58.00, BUN/Creatinine Ratio 36.58, Glucose 168.1 H, Calcium 7.72 L, Total Bilirubin 2.04 H, AST 37.3, ALT 14.5, Alkaline Phosphatase 101.9, Total Protein 6.54, Albumin 3.27 L, Globulin 3.27, Albumin/Globulin Ratio 1.00 12/28/20 16:02: WBC 15.29 H, RBC 4.27 L, Hgb 12.2 L, Hct 36.5 L, MCV 85.5, MCH 28.6, MCHC 33.4, RDW Coeff of Marek 19.6 H, Plt Count 255, Immature Gran % (Auto) 1.1, Neut % (Auto) 86.2 H, Lymph % (Auto) 3.3 L, [place] % (Auto) 9.0, Eos % (Auto) 0.1, Baso % (Auto) 0.3, Neut # (Auto) 13.2 H, Lymph # (Auto) 0.5 L, [place] # (Auto) 1.4, Eos # (Auto) 0.0, Baso # (Auto) 0.1, Immature Gran # (Auto) 0.2 ASSESSMENT: Please see below. 1. Severe hypokalemia 2. Chronic kidney disease stage 3 3. COPD, oxygen dependent 4. Atrial fibrillation 5. Diastolic heart failure. PLAN: 1. Continue with IV and oral Potassium 2. T4 TSH 3. Discontinue Metolazone Plan and coordination of the patient's care discussed in the presence of Tracer Powder Blender and nurse. SCRIBED BY: BRYAN BRANHAM Airline Mechanic scribed while in presence of service performed by Dr. Mart/Cary Xavier APRN on 12/29/20 ([id number])
[2020-12-29] MEDS: ELIQUIS PO SCH ×2 (08:45→20:14)
[2020-12-29] MEDS ORDERED: BUMEX PO SCH (09:00)
[2020-12-29] MEDS: SODIUM CHLORIDE 0.9%-KCL 20 MEQ 1,000 ML IV SCH ×2 (10:24→23:09)
--- NOTE | 2020-12-29 10:49 | PN ---
DATE OF SERVICE: 12/29/2020 SUBJECTIVE: The patient was seen and examined with the Nurse Practitioner this morning. The patient's Potassium was 2.6. We are putting him on 40mew Potassium every 6 hour. The patient is practically asymptomatic feeling better. The patient's status seems to be acceptable. Cardiovascular and respiratory status is stable. Continue to monitor the Potassium and monitor telemetry. No arrhythmias of any significance noted from Hypokalemia. TIME SPENT: More than 30 minutes. Plan and coordination of the patient's care discussed in the presence of nurse. MATTHEW
[2020-12-29] MEDS ORDERED: POLYETHYLENE GLYCOL PO PRN (11:15)
[2020-12-29] MEDS: K-DUR PO SCH ×3 (12:01→20:25)
[2020-12-29] MEDS: CALMOSEPTINE OINTMENT TP SCH ×2 (12:01→20:13)
[2020-12-29] MEDS ORDERED: MIRALAX PO PRN (12:13)
--- NOTE | 2020-12-29 13:16 | PN ---
DATE OF SERVICE: 12/28/2020 SUBJECTIVE: The patient was seen and examined and History and Physical and planning of admission was done with ER doctor and Nurse Practitioner. The patient's problem is severe hypokalemia with Potassium of 1.9 reported to the office today. The Potassium was repeated again in the emergency room which came back as 2, severe hypokalemia. PLAN: 1. Hospitalize with telemetry and given Potassium supplements 2. The patient will be tried on 40meq ever 4 hour doses 3. We will monitor the Potassium level 4. IV Sanju of Potassium Cardiovascular and respiratory status seems to be stable. No obvious abnormality of distress. The patient has stage chronic lung disease on home oxygen. Also has biventricular failure with generalized severe osteoarthritis and bilateral dependent leg edema with chronic kidney disease. TIME SPENT: More than 30 minutes. Plan and coordination of the patient's care discussed in the presence of nurse. MATTHEW
[2020-12-29] MEDS: ZOCOR PO SCH (20:14)
[2020-12-29] MEDS: LANTUS SUBCUT SCH (20:15)
[2020-12-30 04:51] LABS: HEMATOCRIT 34.4 % (42.0-52.0); MEAN CORPUSCULAR HEMOGLOBIN 28.4 pg (27.0-31.0); MEAN CORPUSCULAR VOLUME 88.9 fl (80.0-94.0); PLATELET COUNT 260 10^3/uL (140-440); RDW COEFFICIENT OF VARIATION 19.8 % (11.6-14.8); RED BLOOD COUNT 3.87 10^6/ul (4.70-6.10); WHITE BLOOD COUNT 10.71 K/ul (4.2-10.2)
[2020-12-30 04:57] LABS: ANISOCYTOSIS NOT PRESENT (NOT PRESENT)
[2020-12-30 05:01] LABS: ALANINE AMINOTRANSFERASE 11.3 U/L (0-50); ALBUMIN 3.01 g/dL (3.5-5.0); ALKALINE PHOSPHATASE 85.1 U/L (56-119); ASPARTATE AMINO TRANSFERASE 27.4 U/L (17-59); BILIRUBIN,TOTAL 1.35 mg/dL (0.2-1.3); BLOOD UREA NITROGEN 30.3 mg/dL (9-20); CALCIUM 7.96 mg/dL (8.4-10.2); CARBON DIOXIDE 33.5 mmol/L (22-30.0); CHLORIDE 94.1 mmol/L (98-107); CREATININE 0.98 mg/dL (0.60-1.10); GLUCOSE 97.2 mg/dL (74-106); POTASSIUM 3.75 mmol/L (3.5-5.1); SODIUM 130.9 mmol/L (134.5-145); TOTAL PROTEIN 6.05 g/dL (6.3-8.2)
[2020-12-30 05:31] LABS: THYROID STIMULATING HORMONE 0.299 uIU/L (0.465-4.68)
[2020-12-30] MEDS: ATROVENT HFA INHALER (PER PUFF-WITH SPACER) IH SCH ×4 (05:35→23:25)
[2020-12-30] MEDS: VENTOLIN HFA (PER PUFF-WITH SPACER) IH SCH ×4 (05:35→23:25)
[2020-12-30] MEDS: SYNTHROID PO SCH ×2 (06:10)
[2020-12-30] MEDS: PEPCID PO SCH (06:10)
--- NOTE | 2020-12-30 08:26 | HP ---
DATE OF SERVICE: 12/28/20 HISTORY OF PRESENT ILLNESS: The patient is a resident of [facility]. He had a potassium of 1.98 this morning, sent to the emergency room for further evaluation. PAST MEDICAL HISTORY: Chronic respiratory failure Biventricular failure Cor pulmonale COPD, severe Atrial fibrillation Rheumatoid arthritis Dependent leg edema, bilaterally Venous insufficiency Peripheral arterial disease Diabetes mellitus Type 2 Dyslipidemia Hypertension History of hypokalemia B12 deficiency Chronic kidney disease, Stage 3 Lumbar radiculopathy Pulmonary fibrosis Chronic anemia Hypertension LVH Hypothyroidism Polyarthritis Anxiety Stasis ulcer of the right great toe Generalized weakness PAST SURGICAL HISTORY: Bilateral inguinal hernia repair Bilateral total knee replacement Left ankle surgery REVIEW OF SYSTEMS: CONSTITUTIONAL: Positive for weakness. No night sweats. No fatigue, malaise, lethargy. No fever or chills. HEENT: Eyes: No visual changes. No eye pain. No eye discharge. ENT: No runny nose. No epistaxis. No sinus pain. No sore throat. No odynophagia. No ear pain. No congestion. RESPIRATORY: No cough, no congestion. No hemoptysis. No shortness of breath. CARDIOVASCULAR: No angina symptoms. No CHF symptoms. No atypical chest pain for CAD. No palpitations. No PND. No orthopnea. GASTROINTESTINAL: No abdominal pain. No nausea or vomiting. No diarrhea or constipation. No hematemesis. No hematochezia. GENITOURINARY: No urgency. No frequency. No dysuria. No hematuria. No obstructive symptoms. No discharge. No pain. No significant abnormal bleeding. MUSCULOSKELETAL: No musculoskeletal pain. No joint swelling. No arthritis. NEUROLOGICAL: No headache. No neck pain. No syncope. No seizures. No dizziness. PSYCHIATRIC: Not anxious. No depression. No suicidal thoughts. No homicidal thoughts. SKIN: No rash. No lesions. No wounds. ENDOCRINE: No unexplained weight loss. No weight gain. HEMATOLOGIC/LYMPHATIC: No anemia. No purpura. No petechiae. No prolonged or excessive bleeding. No palpable lymph nodes. PERSONAL/FAMILY/SOCIAL HISTORY: The patient is a nonsmoker, no alcohol or ilicit drug use. He is a resident at [facility]. MEDICATIONS: Synthroid 125 mcg p.o. daily Simvastatin 5 mg p.o. bedtime Eliquis 2.5 mg p.o. b.i.d. Lantus U-100 20 units Subcut bedtime Famotidine 20 mg p.o. daily Carvedilol 3.125 mg p.o. b.i.d. Cholecalciferol (Vitamin D3) 5,000 unit p.o. daily Zinc 220 mg p.o. daily Potassium Chloride 20 mEq p.o. t.i.d. Cymbalta 60 mg p.o. daily Atrovent HFA two puff INH q.6hr Diltiazem 60 mg p.o. b.i.d. Escitalopram (Lexapro) 5 mg p.o. daily Humulin R Regular U-100 insulin one sliding scale dose subcut as directed Albuterol Sulfate (ProAir HFA) two puff INH q.6h Magnesium Hydroxide 30 mL p.o. daily p.r.n. Nystatin one application topical t.i.d. Saccharomyces boulardii (Florastor) 250 mg p.o. b.i.d. Tramadol 50 mg p.o. b.i.d. Acetaminophen 650 mg p.o. t.i.d. p.r.n. Bisacodyl (Dulcolax) 5 mg p.o. q.day Miralax 17 g p.o. daily p.r.n. Metolazone 2.5 mg p.o. b.s. Alprazolam 0.5 mg p.o. bedtime Cephalexin 500 mg p.o. t.i.d. Tradjenta 5 mg p.o. daily Bumetanide 2 mg p.o. daily Calmoseptine one application topical b.i.d. ALLERGIES: NKDA PHYSICAL EXAMINATION: VITAL SIGNS: Temperature 96.6, heart rate 76, respirations 21, blood pressure 98/67, pulse ox 92% on 2L. HEENT: Head normocephalic, atraumatic. Eyes: Extraocular muscles are intact. Pupils are equal, round and reactive to light and accommodation. Ears: No lesions. Nose appeared normal. Throat: No exudate or erythema. NECK: Supple. No JVD, no carotid bruit. No lymphadenopathy or thyromegaly. LUNGS: Diminished breath sounds. Clear to auscultation. Percussion note normal. Chest symmetrical. HEART: Irregular heart rate. S1, S2, no S3. No murmur. No cyanosis or clubbing. No ascites. Pulses: Dorsalis pedis and posterior tibial pulses +1 to +2 bilaterally. ABDOMEN: Soft. Nontender. Bowel sounds active. No CVA tenderness. No mass felt. EXTREMITIES: No edema. Full range of motion of all extremities, equal. NEUROLOGIC: No focal deficit. Cranial nerves II through XII are grossly intact. No headache, no double vision or headache. SKIN: Not dry. Intact. Turgor - normal. LYMPHATIC: No palpable lymph nodes/no lymphedema. MUSCULOSKELETAL: Normal joints with no swelling. Muscle tone is normal. LABS: White count 15.29, hemoglobin 12.2, hematocrit 36.5, platelets 255. Sodium 128, potassium 2.02, BUN 43, creatinine 1.20, glucose 168. Chest x-ray is unchanged from previous. Respiratory panel by PCR is normal. Urine is normal. ASSESSMENT: 1. ACUTE HYPOKALEMIA 2. HYPONATREMIA 3. DIASTOLIC HEART FAILURE 4. GENERALIZED WEAKNESS. 5. ATRIAL FIBRILLATION PLAN: 1. We will admit. 2. Routine telemetry orders. 3. CBC, CMP daily. 4. Continue all home medications. 5. Fall precautions. 6. Normal Saline @ 75 cc/hr with 20 mEq of Potassium. 7. Potassium 40 mEq p.o. t.i.d. 8. Will follow closely. TIME SPENT: More than 70 minutes. МАРИНАD
[2020-12-30] MEDS: ULTRAM PO SCH ×2 (08:45→20:20)
[2020-12-30] MEDS: TRADJENTA PO SCH (08:45)
[2020-12-30] MEDS: CYMBALTA PO SCH (08:45)
[2020-12-30] MEDS: BUMEX PO SCH (08:45)
[2020-12-30] MEDS: CARDIZEM PO SCH ×2 (08:45→20:20)
[2020-12-30] MEDS: LEXAPRO PO SCH (08:46)
[2020-12-30] MEDS: COREG PO SCH ×2 (08:46→17:09)
[2020-12-30] MEDS: FLORASTOR PO SCH ×2 (08:46→20:20)
[2020-12-30] MEDS: K-DUR PO SCH ×3 (08:46→17:09)
[2020-12-30] MEDS: VITAMIN D PO SCH (08:46)
[2020-12-30] MEDS: ZINC-220 PO SCH (08:46)
[2020-12-30] MEDS: NYSTOP POWDER TP SCH ×3 (08:47→20:23)
[2020-12-30] MEDS: CALMOSEPTINE OINTMENT TP SCH ×2 (08:47→20:23)
[2020-12-30] MEDS: ELIQUIS PO SCH ×2 (08:47→20:23)
[2020-12-30] MEDS ORDERED: ZAROXOLYN PO SCH (09:00)
[2020-12-30] MEDS: SODIUM CHLORIDE 0.9%-KCL 20 MEQ 1,000 ML IV SCH (12:31)
[2020-12-30] MEDS: ZOCOR PO SCH (20:20)
[2020-12-30] MEDS: LANTUS SUBCUT SCH (20:26)
[2020-12-31] MEDS: SODIUM CHLORIDE 0.9%-KCL 20 MEQ 1,000 ML IV SCH (01:26)
[2020-12-31] MEDS: VENTOLIN HFA (PER PUFF-WITH SPACER) IH SCH ×2 (04:50→11:09)
[2020-12-31] MEDS: ATROVENT HFA INHALER (PER PUFF-WITH SPACER) IH SCH ×2 (04:50→11:09)
[2020-12-31 05:18] LABS: BASOPHILS # (AUTO) 0.1 K/uL (0-0.2); BASOPHILS % (AUTO) 0.6 % (0.0-3.0); EOSINOPHILS # (AUTO) 0.2 K/ul (0.0-0.7); EOSINOPHILS % (AUTO) 1.6 % (0.0-7.0); HEMATOCRIT 33.4 % (42.0-52.0); HEMOGLOBIN 10.4 g/dl (14.0-18.0); IMMATURE GRANULOCYTE # (AUTO) 0.1 (0.0-1.0); LYMPHOCYTES # (AUTO) 0.6 K/uL (0.60-3.4); LYMPHOCYTES % (AUTO) 5.8 (10.0-50.0); MEAN CORPUSCULAR HEMOGLOBIN 28.1 pg (27.0-31.0); MEAN CORPUSCULAR HGB CONC 31.1 (31.8-35.4); MEAN CORPUSCULAR VOLUME 90.3 fl (80.0-94.0); MONOCYTES # (AUTO) 1.1 K/uL (0.4-2.0); MONOCYTES % (AUTO) 11.9 (0-10); NEUTROPHILS # (AUTO) 7.5 K/ul (2.0-6.9); NEUTROPHILS % (AUTO) 79.1 % (42.2-75.2); PLATELET COUNT 264 10^3/uL (140-440); RDW COEFFICIENT OF VARIATION 19.7 % (11.6-14.8); WHITE BLOOD COUNT 9.47 K/ul (4.2-10.2)
[2020-12-31 05:25] VITALS: BP 98/61; TEMP 97.6
[2020-12-31 05:27] LABS: ALBUMIN 2.72 g/dL (3.5-5.0); ALKALINE PHOSPHATASE 76.2 U/L (56-119); ASPARTATE AMINO TRANSFERASE 27.3 U/L (17-59); BILIRUBIN,TOTAL 1.23 mg/dL (0.2-1.3); BLOOD UREA NITROGEN 23.3 mg/dL (9-20); CALCIUM 7.82 mg/dL (8.4-10.2); CARBON DIOXIDE 32.5 mmol/L (22-30.0); CHLORIDE 95.5 mmol/L (98-107); CREATININE 0.9 mg/dL (0.60-1.10); GLUCOSE 56.6 mg/dL (74-106); POTASSIUM 3.74 mmol/L (3.5-5.1); TOTAL PROTEIN 5.54 g/dL (6.3-8.2)
[2020-12-31] MEDS: PEPCID PO SCH (06:20)
[2020-12-31] MEDS: SYNTHROID PO SCH ×2 (06:20)
--- NOTE | 2020-12-31 08:36 | PCM.PROG ---
Attending Provider: ATTENDING PROVIDER: Dr. SPARKLE MART This patient is seen with Cary Xavier, Nurse Practitioner. DATE OF SERVICE: 12/31/20 SUBJECTIVE: This 85 year old /WHITE M was hospitalized 12/28/20. The patient rested comfortably last night. Eating well. Potassium is normal. REVIEW OF SYSTEMS: CONSTITUTIONAL: No night sweats. No fatigue, malaise, lethargy. No fever or chills. Weakness. HEENT: Eyes: No visual changes. No eye pain. No eye discharge. ENT: No runny nose. No epistaxis. No sinus pain. No odynophagia. No congestion. RESPIRATORY: No cough, no congestion. No hemoptysis. No shortness of breath. CARDIOVASCULAR: No angina symptoms. No CHF symptoms. No atypical chest pain for CAD. No palpitations. No orthopnea.. GASTROINTESTINAL: No abdominal pain. No nausea or vomiting. No diarrhea or constipation. No hematemesis. No hematochezia. GENITOURINARY: No urgency. No frequency. No dysuria. No hematuria. No obstructive symptoms. No discharge. No pain. No significant abnormal bleeding. MUSCULOSKELETAL: No musculoskeletal pain; no joint swelling. NEUROLOGICAL: Awake, alert, oriented to time, place and person. No headache. No neck pain. No syncope. No seizures. No dizziness. PSYCHIATRIC: Not anxious. No depression. No suicidal thoughts. No homicidal thoughts. SKIN: No rash. No lesions. No wounds. ENDOCRINE: No unexplained weight loss. No weight gain. HEMATOLOGIC/LYMPHATIC: No anemia. No purpura. No petechiae. No prolonged or excessive bleeding. No palpable lymph nodes. PHYSICAL EXAMINATION: GENERAL: The patient is awake, alert and oriented, lying in bed in no distress. VITAL SIGNS: Temperature 97.6 F, Pulse 77, Respiratory Rate 16, BP 98/61, Pulse Ox 100% HEENT: Head normocephalic, atraumatic. Eyes: Extraocular muscles are intact. Pupils are equal, round and reactive to light and accommodation. Ears: No lesions. Nose appeared normal. Throat: No exudate or erythema. NECK: Supple. No JVD, no carotid bruit. No lymphadenopathy or thyromegaly. LUNGS: Diminished breath sounds. Clear to auscultation. Percussion note normal. Chest symmetrical. HEART: Irregular heart rate. S1, S2, no S3. No murmurs. No cyanosis or clubbing. No ascites. Pulses: Dorsalis pedis and posterior tibial pulses +1 to +2 both sides. ABDOMEN: Soft. Non-tender. Bowel sounds active. No CVA tenderness. No mass f elt. EXTREMITIES: No edema. Full range of motion of all extremities, equal. NEUROLOGIC: No focal deficit. Cranial nerves II through XII are grossly intact. No headache. No double vision. SKIN: Not dry. Intact. Turgor-normal. LYMPHATIC: No palpable lymph nodes/no lymphedema. MUSCULOSKELETAL: Normal joints with no swelling. Muscle tone is normal. LAB REVIEW: 12/31/20 04:36 12/31/20 04:36 12/31/20 04:36: Sodium 131.0 L, Potassium 3.74, Chloride 95.5 L, Carbon Dioxide 32.5 H, Anion Gap 6.74, BUN 23.3 H, Creatinine 0.90, Estimated GFR (MDRD) 80.00, BUN/Creatinine Ratio 25.88, Glucose 56.6 L, Calcium 7.82 L, Total Bilirubin 1.23, AST 27.3, ALT 10.0, Alkaline Phosphatase 76.2, Total Protein 5.54 L, Albumin 2.72 L, Globulin 2.82, Albumin/Globulin Ratio 0.96 12/31/20 04:36: WBC 9.47, RBC 3.70 L, Hgb 10.4 L, Hct 33.4 L, MCV 90.3, MCH 28.1, MCHC 31.1 L, RDW Coeff of Marek 19.7 H, Plt Count 264, Immature Gran % (Auto) 1.0, Neut % (Auto) 79.1 H, Lymph % (Auto) 5.8 L, [place] % (Auto) 11.9 H, Eos % (Auto) 1.6, Baso % (Auto) 0.6, Neut # (Auto) 7.5 H, Lymph # (Auto) 0.6, [place] # (Auto) 1.1, Eos # (Auto) 0.2, Baso # (Auto) 0.1, Immature Gran # (Auto) 0.1 ASSESSMENT: Please see below. 1. Hypokalemia 2. Chronic kidney disease stage 3 3. COPD, oxygen dependent 4. Atrial fibrillation 5. Diastolic heart failure. PLAN: 1. Discontinue fluids 2. Continue oral Potassium 40meq TID 3. Decrease Lantus to 15 units. Plan and coordination of the patient's care discussed in the presence of [employer] and nurse. SCRIBED BY: Von HUSSEIN scribed while in presence of service performed by Dr. Mart/Cary Xavier APRN on 12/31/20 ([id number])
[2020-12-31] MEDS: VITAMIN D PO SCH (08:55)
[2020-12-31] MEDS: BUMEX PO SCH (08:56)
[2020-12-31] MEDS: COREG PO SCH (08:58)
[2020-12-31] MEDS: TRADJENTA PO SCH (08:58)
[2020-12-31] MEDS: FLORASTOR PO SCH (08:58)
[2020-12-31] MEDS: K-DUR PO SCH ×2 (08:59→11:43)
[2020-12-31] MEDS: ZINC-220 PO SCH (08:59)
[2020-12-31] MEDS: CYMBALTA PO SCH (08:59)
[2020-12-31] MEDS: ULTRAM PO SCH (09:00)
[2020-12-31] MEDS: LEXAPRO PO SCH (09:00)
[2020-12-31] MEDS: CARDIZEM PO SCH (09:00)
[2020-12-31] MEDS ORDERED: DIFLUCAN PO SCH (09:00)
[2020-12-31] MEDS: ELIQUIS PO SCH (09:01)
[2020-12-31] MEDS: CALMOSEPTINE OINTMENT TP SCH (09:04)
[2020-12-31] MEDS: NYSTOP POWDER TP SCH (09:04)
--- NOTE | 2020-12-31 11:23 | CM.DICTOOL ---
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 ATRIAL FIBRILLATION ON ELIQUIS CHRONIC ANEMIA LVH DEPENDENT LEG EDEMA, BILATERALLY VENOUS INSUFFICIENCY PERIPHERAL ARTERIAL DISEASE DIABETES MELLITUS TYPE 2- A1C 12/14/20, 7.66 DYSLIPIDEMIA HYPERTENSION HISTORY OF HYPOKALEMIA B12 DEFICIENCY CHRONIC KIDNEY DISEASE STAGE 3 LUMBAR RADICULOPATHY HYPOTHYROIDISM POLYARTHRITIS RHEUMATOID ARTHRITIS ANXIETY STASIS ULCER TO THE RT GREAT TOE GENERALIZED WEAKNESS SURGICAL HISTORY: BILATERAL INGUINAL HERNIA REPAIR BILATERAL TOTAL KNEE REPLACEMENT LEFT ANKLE SURGERY CODE STATUS: DO NOT RESUSCITATE LAST VITALS Temp Pulse Resp BP Pulse Ox 97.6 F 77 16 98/61 100 12/31/20 05:23 12/31/20 05:23 12/31/20 05:23 12/31/20 05:23 12/31/20 05:23 TAKE THESE MEDICATIONS AT HOME Acetaminophen (Acetaminophen 325 Mg Tablet) 650 mg PO Q8H PRN PRN Reason: Mild Pain Albuterol Sulfate (Albuterol Sulfate (Ventolin Hfa) 18 Gm 1 Puff With Spacer) 2 puff IH RTQ6H [facility] Last Admin: 12/31/20 04:50 Dose: 2 puff Documented by: Alprazolam (Alprazolam 0.5 Mg Tablet) 0.5 mg PO BEDTIME PRN PRN Reason: Anxiety Apixaban (Apixaban 5 Mg Tab) 2.5 mg PO BID [facility] Last Admin: 12/31/20 09:01 Dose: 2.5 mg Documented by: Bisacodyl (Bisacodyl 5 Mg Tablet.Dr) 5 mg PO DAILY PRN PRN Reason: CONSTIPATION Bumetanide (Bumetanide 1 Mg Tablet) 1 mg PO DAILY [facility] -- (CHANGED) Last Admin: 12/31/20 08:56 Dose: 1 mg Documented by: Calamine/Phenol (Menthol/Zinc Oxide 113 Gm Ointment) 1 applic TP BID [facility] [place] Last Admin: 12/31/20 09:04 Dose: 1 applic Documented by: Carvedilol (Carvedilol 3.125 Mg Tablet) 3.125 mg PO BIDWM [facility] [place] Last Admin: 12/31/20 08:58 Dose: 3.125 mg Documented by: Cholecalciferol (Cholecalciferol (Vitamin D3) 1,000 Unit (25 Mcg) Tablet) 5,000 unit PO DAILY [facility] [place] Last Admin: 12/31/20 08:55 Dose: 5,000 unit Documented by: Diltiazem HCl (Diltiazem Hcl 60 Mg Tablet) 60 mg PO Q12HR [facility] [place] Last Admin: 12/31/20 09:00 Dose: 60 mg Documented by: Duloxetine HCl (Duloxetine Hcl 30 Mg Capsule.Dr) 60 mg PO DAILY [facility] [place] Last Admin: 12/31/20 08:59 Dose: 60 mg Documented by: Escitalopram Oxalate (Escitalopram Oxalate 10 Mg Tablet) 5 mg PO DAILY [facility] [place] Last Admin: 12/31/20 09:00 Dose: 5 mg Documented by: Famotidine (Famotidine 20 Mg Tablet) 20 mg PO QDAC [facility] [place] Last Admin: 12/31/20 06:20 Dose: 20 mg Documented by: Fluconazole (Fluconazole 150 Mg Tablet) 150 mg PO DAILY [facility] X 3 DAYS -- ( NEW) Last Admin: 12/31/20 08:57 Dose: 150 mg Documented by: Insulin Glargine (Insulin Glargine,Hum.Rec.Anlog 100 Units/Ml) 15 unit SUBCUT BEDTIME [facility] -- (CHANGED) Last Admin: 12/30/20 20:26 Dose: 20 unit Documented by: Ipratropium [place] (Ipratropium [place] 12.9 Gm Hfa Inhaler Per Puff With Spacer) 2 puff IH RTQ6H [facility] [place] Last Admin: 12/31/20 04:50 Dose: 2 puff Documented by: Levothyroxine Sodium (Levothyroxine Sodium 25 Mcg Tablet) 25 mcg PO QDAC [facility] [place] Last Admin: 12/31/20 06:20 Dose: 25 mcg Documented by: Levothyroxine Sodium (Levothyroxine Sodium 100 Mcg Tablet) 100 mcg PO QDAC [facility] [place] Last Admin: 12/31/20 06:20 Dose: 100 mcg Documented by: Linagliptin (Linagliptin 5 Mg Tablet) 5 mg PO DAILY [facility] [place] Last Admin: 12/31/20 08:58 Dose: 5 mg Documented by: Magnesium Hydroxide (Magnesium Hydroxide 30 Ml Cup) 30 ml PO DAILY PRN PRN Reason: Constipation Nystatin (Nystatin 15 Gm Powder) 1 applic TP TID [facility] -- ( CHANGED) Last Admin: 12/31/20 09:04 Dose: 1 applic Documented by: Polyethylene Glycol (Polyethylene Glycol 17 Gm Powd.Pack) 17 gm PO DAILY PRN PRN Reason: Constipation Potassium Chloride (Potassium Chloride 20 Meq Tab) 40 meq PO 0830,1200,1730 [facility] [place] -- ( CHANGED) Last Admin: 12/31/20 08:59 Dose: 40 meq Documented by: Saccharomyces Boulardii (Saccharomyces Boulardii 250 Mg Capsule) 250 mg PO BID [facility] [place] Last Admin: 12/31/20 08:58 Dose: 250 mg Documented by: Simvastatin (Simvastatin 10 Mg Tablet) 5 mg PO BEDTIME [facility] Last Admin: 12/30/20 20:20 Dose: 5 mg Documented by: Tramadol HCl (Tramadol Hcl 50 Mg Tablet) 50 mg PO BID [facility] [place] Last Admin: 12/31/20 09:00 Dose: 50 mg Documented by: Zinc Sulfate (Zinc Sulfate 220 Mg Capsule) 220 mg PO DAILY [facility] [place] Last Admin: 12/31/20 08:59 Dose: 220 mg Documented by: ALLERGIES No Known Allergies Allergy (Verified 12/28/20 15:34) DISCONTINUED MEDICATIONS Bumetanide 2 mg PO DAILY [facility] Metolazone 2.5 mg PO WED AND SAT Insulin Regular, Human)1 sliding scale dose SUBCUT PRN Potassium Chloride 20 Meq Tab PO TID CEPHALEXIN 500 MG PO TID NYSTATIN CREAM NEW PRESCRIPTIONS: BUMEX 1 MG PO DAILY LANTUS 15 UNITS SQ AT BEDTIME K-DUR 40 MEQ PO TID DIFLUCAN 150 MG PO DAILY X 3 DAYS NYSTATIN POWDER TOPICAL TO BILATERAL GROINS TID SMOKING: N/A DISEASE SPECIFIC EDUCATION: HYPERKALEMIA BLEEDING PRECAUTIONS YEAST INFECTION PRESSURE ULCER COVID LAB REVIEW: 12/31/20 04:36 12/31/20 04:36 12/31/20 04:36: Sodium 131.0 L, Potassium 3.74, Chloride 95.5 L, Carbon Dioxide 32.5 H, Anion Gap 6.74, BUN 23.3 H, Creatinine 0.90, Estimated GFR (MDRD) 80.00, BUN/Creatinine Ratio 25.88, Glucose 56.6 L, Calcium 7.82 L, Total Bilirubin 1.23, AST 27.3, ALT 10.0, Alkaline Phosphatase 76.2, Total Protein 5.54 L, Album in 2.72 L, Globulin 2.82, Albumin/Globulin Ratio 0.96 12/31/20 04:36: WBC 9.47, RBC 3.70 L, Hgb 10.4 L, Hct 33.4 L, MCV 90.3, MCH 28.1, MCHC 31.1 L, RDW Coeff of Marek 19.7 H, Plt Count 264, Immature Gran % (Auto) 1.0, Neut % (Auto) 79.1 H, Lymph % (Auto) 5.8 L, [place] % (Auto) 11.9 H, Eos % (Auto) 1.6, Baso % (Auto) 0.6, Neut # (Auto) 7.5 H, Lymph # (Auto) 0.6, [place] # (Auto) 1.1, Eos # (Auto) 0.2, Baso # (Auto) 0.1, Immature Gran # (Auto) 0.1 PLAN: DISCHARGE TODAY: DECEMBER 31, 2020 RETURN TO [facility] ACTIVITY: TURN AND REPOSITION EVERY 2 HOURS AND PRN WHILE BED FAST AND WHILE IN BED , IMELDA MATTRESS OVER LAY PT AND OT TO EVAL AND TREAT ONCE CLEARED AND HAS PROGRESSED ATTEMPT UP IN CHAIR FOR MEALS AND PRN FALL PRECAUTIONS BLEEDING PRECAUTIONS DIET: HEART HEALTHY, 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 MART/ RADHAMES BERGER APRN/ JARETT BARBA APRN TO SEE ON ROUNDS CODE STATUS: DO NOT RESUSCITATE LABS: CBC AND CMP ON MONDAY THEN CONTINUE ROUTINE LABS ACCU CHECKS TWICE DAILY, REGULAR SS PRN INSULIN NOT NEEDED AT THIS TIME OXYGEN: 2 L/M PER N/C CONTINUOS VITAL SIGNS AND WEIGHTS PER FACILITY PROTOCOLS SKIN CARE : BEFORE WITH DECUBITIS CARE AND PRECAUTIONS CLEAN PENIS TWICE DAILY AND PRN: RETRACT FORESKIN, WASH WITH SOAP AND WATER ( DO NOT USE WIPES), RINSE AND DRY WELL AND REPLACE FORESKIN BACK IN PROPER PLACE. MR UMANZOR REMAINS ALERT AND ORIENTED TO SELF ONLY. HE IS CONFUSED TO MOST ASPECTS AND ABLE TO RECALL SOME DETAILS. HE HAS REMAINED PLEASANTLY CONFUSED. HE HAS NOT BEEN ABLE TO AMBULATE OR BE UP IN THE CHAIR DUE TO WEAKNESS AND CONF USION. NO RESPIRATORY DISTRESS OR ACUTE DIFFICULTIES. HAS BEEN OXYGEN DEPENDENT DUE TO SEVERE COPD. SKIN IS WARM AND DRY TO TOUCH EXCEPT CHRONIC AREAS TO RT MIDDLE MEDIAL TOE AND RT GREAT TOE WHICH ARE CRUSTED AND NO S/S OF INFECTION. SHEARING AND STAGE 2 TO COCCYX MANAGED WITH REPOSITIONING AND CALMOSEPTINE OINTMENT. EXCORIATION TO BILATERAL GROINS MINIMAL. HAS BRUISING TO LT SIDE AND LT HIP. ALL LESIONS WERE PRESENT ON ADMISSION. HE IS INCONTINENT OF BOWEL AND BLADDER, DOES USE A URINAL AT TIMES, HOWEVER MR. UMANZOR LEAVES IN PLACE AND CAUSES SKIN IRRITATION TO PENIS. HE HAS HAD SWELLING TO THE HEAD AND TO THE FORESKIN. NOW THE FORESKIN IS IN THE PROPER PLACE AND WITN MINIMAL IRRITATION A ND SWELLING. LAST BM LOOSE 12/31. HIS FACIAL APPEARANCE IS LESS ASHENED AND AREAS OF HIS FACE HAVE PINKED UP. HE DOES FEED SELF AND NUTRITIONAL INTAKE AT 50 -75% WITH ADDITIONAL ITEMS FROM FAMILY CONSUMED AT A HIGHER PERCENTAGE. FLUID INTAKE 1500 - 2000 AND + AT TIMES DAILY. HE HAS BEEN AT [facility] AND SWING BED STAYS. PLAN IS TO RETURN TH ERE. MD RADHAMES SANTO, SONI BARBA APRN
--- NOTE | 2021-01-01 13:37 | DS ---
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 ATRIAL FIBRILLATION ON ELIQUIS CHRONIC ANEMIA LVH DEPENDENT LEG EDEMA, BILATERALLY VENOUS INSUFFICIENCY PERIPHERAL ARTERIAL DISEASE DIABETES MELLITUS TYPE 2- A1C 12/14/20, 7.66 DYSLIPIDEMIA HYPERTENSION HISTORY OF HYPOKALEMIA B12 DEFICIENCY CHRONIC KIDNEY DISEASE STAGE 3 LUMBAR RADICULOPATHY HYPOTHYROIDISM POLYARTHRITIS RHEUMATOID ARTHRITIS ANXIETY STASIS ULCER TO THE RT GREAT TOE GENERALIZED WEAKNESS SURGICAL HISTORY: BILATERAL INGUINAL HERNIA REPAIR BILATERAL TOTAL KNEE REPLACEMENT LEFT ANKLE SURGERY CODE STATUS: DO NOT RESUSCITATE LAST VITALS: Temp Pulse Resp BP Pulse Ox 97.6 F 77 16 98/61 100 12/31/20 05:23 12/31/20 05:23 12/31/20 05:23 12/31/20 05:23 12/31/20 05:23 DISCHARGE INSTRUCTIONS: DISCHARGE TODAY: DECEMBER 31, [address] [facility]. MD FOLLOW UP: DR. MART/ RADHAMES BERGER APRN/ JARETT BARBA APRN TO SEE ON ROUNDS. CODE STATUS: DO NOT RESUSCITATE. LABS: CBC AND CMP ON MONDAY THEN CONTINUE ROUTINE LABS ACCU CHECKS TWICE DAILY, REGULAR SS PRN INSULIN NOT NEEDED AT THIS TIME. OXYGEN: 2 L/M PER N/C CONTINUOS, VITAL SIGNS AND WEIGHTS PER FACILITY PROTOCOLS, SKIN CARE : BEFORE WITH DECUBITUS CARE AND PRECAUTIONS, CLEAN PENIS TWICE DAILY AND PRN: RETRACT FORESKIN, WASH WITH SOAP AND WATER ( DO NOT USE WIPES), RINSE AND DRY WELL AND REPLACE FORESKIN BACK IN PROPER PLACE. TAKE THESE MEDICATIONS AT HOME: Acetaminophen (Acetaminophen 325 Mg Tablet) 650 mg PO Q8H PRN PRN Reason: Mild Pain Albuterol Sulfate (Albuterol Sulfate (Ventolin Hfa) 18 Gm 1 Puff With Spacer) 2 puff IH RTQ6H [facility] Last Admin: 12/31/20 04:50 Dose: 2 puff Documented by: Alprazolam (Alprazolam 0.5 Mg Tablet) 0.5 mg PO BEDTIME PRN PRN Reason: Anxiety Apixaban (Apixaban 5 Mg Tab) 2.5 mg PO BID [facility] Last Admin: 12/31/20 09:01 Dose: 2.5 mg Documented by: Bisacodyl (Bisacodyl 5 Mg Tablet.) 5 mg PO DAILY PRN PRN Reason: CONSTIPATION Bumetanide (Bumetanide 1 Mg Tablet) 1 mg PO DAILY [facility] -- (CHANGED) Last Admin: 12/31/20 08:56 Dose: 1 mg Documented by: Calamine/Phenol (Menthol/Zinc Oxide 113 Gm Ointment) 1 applic TP BID [facility] Last Admin: 12/31/20 09:04 Dose: 1 applic Documented by: Carvedilol (Carvedilol 3.125 Mg Tablet) 3.125 mg PO BIDWM [facility] Last Admin: 12/31/20 08:58 Dose: 3.125 mg Documented by: Cholecalciferol (Cholecalciferol (Vitamin D3) 1,000 Unit (25 Mcg) Tablet) 5,000 unit PO DAILY [facility] Last Admin: 12/31/20 08:55 Dose: 5,000 unit Documented by: Diltiazem HCl (Diltiazem Hcl 60 Mg Tablet) 60 mg PO Q12HR [facility] Last Admin: 12/31/20 09:00 Dose: 60 mg Documented by: Duloxetine HCl (Duloxetine Hcl 30 Mg Capsule.) 60 mg PO DAILY [facility] Last Admin: 12/31/20 08:59 Dose: 60 mg Documented by: Escitalopram Oxalate (Escitalopram Oxalate 10 Mg Tablet) 5 mg PO DAILY [facility] Last Admin: 12/31/20 09:00 Dose: 5 mg Documented by: Famotidine (Famotidine 20 Mg Tablet) 20 mg PO QDAC [facility] Last Admin: 12/31/20 06:20 Dose: 20 mg Documented by: Fluconazole (Fluconazole 150 Mg Tablet) 150 mg PO DAILY [facility] X 3 DAYS -- ( NEW) Last Admin: 12/31/20 08:57 Dose: 150 mg Documented by: Insulin Glargine (Insulin Glargine,Hum.Rec.Anlog 100 Units/Ml) 15 unit SUBCUT BEDTIME [facility] -- (CHANGED) Last Admin: 12/30/20 20:26 Dose: 20 unit Documented by: Ipratropium [place] (Ipratropium [place] 12.9 Gm Hfa Inhaler Per Puff With Spacer) 2 puff IH RTQ6H [facility] Last Admin: 12/31/20 04:50 Dose: 2 puff Documented by: Levothyroxine Sodium (Levothyroxine Sodium 25 Mcg Tablet) 25 mcg PO QDAC [facility] Last Admin: 12/31/20 06:20 Dose: 25 mcg Documented by: Levothyroxine Sodium (Levothyroxine Sodium 100 Mcg Tablet) 100 mcg PO QDAC [facility] Last Admin: 12/31/20 06:20 Dose: 100 mcg Documented by: Linagliptin (Linagliptin 5 Mg Tablet) 5 mg PO DAILY [facility] Last Admin: 12/31/20 08:58 Dose: 5 mg Documented by: Magnesium Hydroxide (Magnesium Hydroxide 30 Ml Cup) 30 ml PO DAILY PRN PRN Reason: Constipation Nystatin (Nystatin 15 Gm Powder) 1 applic TP TID [facility] -- ( CHANGED) Last Admin: 12/31/20 09:04 Dose: 1 applic Documented by: Polyethylene Glycol (Polyethylene Glycol 17 Gm Powd.Pack) 17 gm PO DAILY PRN PRN Reason: Constipation Potassium Chloride (Potassium Chloride 20 Meq Tab) 40 meq PO 0830,1200,1730 [facility] -- ( CHANGED) Last Admin: 12/31/20 08:59 Dose: 40 meq Documented by: Saccharomyces Boulardii (Saccharomyces Boulardii 250 Mg Capsule) 250 mg PO BID [facility] Last Admin: 12/31/20 08:58 Dose: 250 mg Documented by: Simvastatin (Simvastatin 10 Mg Tablet) 5 mg PO BEDTIME [facility] Last Admin: 12/30/20 20:20 Dose: 5 mg Documented by: Tramadol HCl (Tramadol Hcl 50 Mg Tablet) 50 mg PO BID [facility] Last Admin: 12/31/20 09:00 Dose: 50 mg Documented by: Zinc Sulfate (Zinc Sulfate 220 Mg Capsule) 220 mg PO DAILY [facility] Last Admin: 12/31/20 08:59 Dose: 220 mg Documented by: ALLERGIES: No Known Allergies Allergy (Verified 12/28/20 15:34) DISCONTINUED MEDICATIONS: Bumetanide 2 mg PO DAILY [facility] Metolazone 2.5 mg PO WED AND SAT Insulin Regular, Human)1 sliding scale dose SUBCUT PRN Potassium Chloride 20 Meq Tab PO TID CEPHALEXIN 500 MG PO TID NYSTATIN CREAM NEW PRESCRIPTIONS: BUMEX 1 MG PO DAILY LANTUS 15 UNITS SQ AT BEDTIME K-DUR 40 MEQ PO TID DIFLUCAN 150 MG PO DAILY X 3 DAYS NYSTATIN POWDER TOPICAL TO BILATERAL GROINS TID SMOKING: N/A DISEASE SPECIFIC EDUCATION: HYPERKALEMIA BLEEDING PRECAUTIONS YEAST INFECTION PRESSURE ULCER COVID LAB REVIEW: 12/31/20 04:36 12/31/20 04:36 12/31/20 04:36: Sodium 131.0 L, Potassium 3.74, Chloride 95.5 L, Carbon Dioxide 32.5 H, Anion Gap 6.74, BUN 23.3 H, Creatinine 0.90, Estimated GFR (MDRD) 80.00, BUN/Creatinine Ratio 25.88, Glucose 56.6 L, Calcium 7.82 L, Total Bilirubin 1.23, AST 27.3, ALT 10.0, Alkaline Phosphatase 76.2, Total Protein 5.54 L, Albumin 2.72 L, Globulin 2.82, Albumin/Globulin Ratio 0.96 12/31/20 04:36: WBC 9.47, RBC 3.70 L, Hgb 10.4 L, Hct 33.4 L, MCV 90.3, MCH 28.1, MCHC 31.1 L, RDW Coeff of Marek 19.7 H, Plt Count 264, Immature Gran % (Auto) 1.0, Neut % (Auto) 79.1 H, Lymph % (Auto) 5.8 L, [place] % (Auto) 11.9 H, Eos % (Auto) 1.6, Baso % (Auto) 0.6, Neut # (Auto) 7.5 H, Lymph # (Auto) 0.6, [place] # (Auto) 1.1, Eos # (Auto) 0.2, Baso # (Auto) 0.1, Immature Gran # (Auto) 0.1 ACTIVITY: TURN AND REPOSITION EVERY 2 HOURS AND PRN WHILE BED FAST AND WHILE IN BED , IMELDA MATTRESS OVER LAY PT AND OT TO EVAL AND TREAT ONCE CLEARED AND HAS PROGRESSED ATTEMPT UP IN CHAIR FOR MEALS AND PRN FALL PRECAUTIONS BLEEDING PRECAUTIONS DIET: HEART HEALTHY, CONSISTENT CARBS REHABILITATION SERVICES COUNSELOR CONSULT HOSPITAL COURSE: The patient was admitted through the ER. He is a resident of [facility]. He had labs the day of admission showing a Potassium of 1.98. He has a history of hypokalemia. The patient was brought to the emergency room. Potassium was found to be 2.0. He was placed on IV fluids normal at 100cc an hour with 40meq of Potassium along with given 40meq TID. The following morning after being admitted Potassium was up to 2.6. We increased oral Potassium to QID. Over the course of the next two days Potassium normalized. Today on day of discharge the Potassium was 3.9 up from 3.7 yesterday. There was some medication errors with the [facility] after his discharge from the hospital last stay. They had restarted his Zaroxolyn which had been previously discontinued which likely contributed to the hypokalemia so his medications have been reviewed and reconciled. We have gone over with the [facility] what he will go back on. He is not to be on any Zaroxolyn. He has Bumex 1mg PO daily, keep his legs elevated. He will go back on 40meq Potassium BID and then he will have a CBC and CMP to be done on Monday and they are to call me with the results. The patient reports feeling better. He was not having any diarrhea. No other causes for the hypokalemia. We are going to discharge him in stable condition and we will [facility]up [facility] the [facility]. TIME SPENT: More than 60 minutes. MTDD
--- NOTE | 2021-01-07 09:33 | PN ---
DATE OF SERVICE: 12/30/2020 SUBJECTIVE: The patient was seen and examined today. The patient's condition has improved. The patient's is present in the room and she is very happy. The patient is alert and looks brighter. In fact he called the to come over. Big surprise to the and she was happy about it. REVIEW OF SYSTEMS: CONSTITUTIONAL: No night sweats. No fatigue, malaise, lethargy. No fever or chills. HEENT: Eyes: No visual changes. No eye pain. No eye discharge. ENT: No runny nose. No epistaxis. No sinus pain. No sore throat. No odynophagia. No congestion. RESPIRATORY: No cough, no congestion. No hemoptysis. No shortness of breath. CARDIOVASCULAR: No angina symptoms. No CHF symptoms. No atypical chest pain for CAD. No palpitations. No PND. No orthopnea. GASTROINTESTINAL: No abdominal pain. No nausea or vomiting. No diarrhea or constipation. No hematemesis. No hematochezia. Appetite seems to have improved. GENITOURINARY: No urgency. No frequency. No dysuria. No hematuria. No obstructive symptoms. No discharge. No pain. No significant abnormal bleeding. MUSCULOSKELETAL: No musculoskeletal pain; no joint swelling. NEUROLOGICAL: No headache. No neck pain. No syncope. No seizures. No dizziness. PSYCHIATRIC: Not anxious. No depression. No suicidal thoughts. No homicidal thoughts. SKIN: No rash. No lesions. No wounds. ENDOCRINE: No unexplained weight loss. No weight gain. HEMATOLOGIC/LYMPHATIC: No anemia. No purpura. No petechiae. No prolonged or excessive bleeding. No palpable lymph nodes. PHYSICAL EXAMINATION: VITAL SIGNS: Temperature 97.7, pulse 66, respiratory rate 18, blood pressure 112/73 and pulse ox 100%. HEENT: Head normocephalic, atraumatic. Eyes: Extraocular muscles are intact. Pupils are equal, round and reactive to light and accommodation. Ears: No lesions. Nose appeared normal. Throat: No exudate or erythema. NECK: Supple. No JVD, no carotid bruit. No lymphadenopathy or thyromegaly. LUNGS: Decreased breath sounds but clear to auscultation. Percussion note normal. Chest symmetrical. HEART: S1, S2, no S3. No murmurs. No cyanosis or clubbing. No ascites. Pulses: Dorsalis pedis and posterior tibial pulses +1 to +2 bilaterally. ABDOMEN: Soft. Nontender. Bowel sounds active. No CVA tenderness. No mass felt. EXTREMITIES: No edema. Full range of motion of all extremities, equal. NEUROLOGIC: No focal deficit. Cranial nerves II through XII are grossly intact. No headache. No double vision. SKIN: Not dry. Intact. Turgor - normal. LYMPHATIC: No palpable lymph nodes/no lymphedema. MUSCULOSKELETAL: Normal joints with no swelling. Muscle tone is normal. LABS: hgb 11, hct 34, WBC 10,000 normal differential, creatinine 0.9, BUN 30, potassium 3.7 ASSESSMENT: 1. Severe hypokalemia seems to have resolved 2. End stage respiratory failure, under control 3. Congestive heart failure, under control PLAN: 1. We will continue 40meq KCL TID CONDITION: Improving. TIME SPENT: More than 30 minutes. The patient was told about I am going out of town and Dr. Cervantes in my absence is going to cover. Cary the Nurse Practitioner will continue to follow. Plan and coordination of the patient's care discussed in the presence of nurse. MATTHEW
== END 2020-12-31 13:35 | DRG 641 ==
LOC: ED 15:24 → MEDSURG A 18:05
PROVIDERS: ADMIT Internal Medicine; ATTEND Internal Medicine
DX: S30.811A Abrasion of abdominal wall, initial encounter; J44.9 Chronic obstructive pulmonary disease, unspecified; N18.30 Chronic kidney disease, stage 3 unspecified; E87.1 Hypo-osmolality and hyponatremia; Z20.822 Contact with and (suspected) exposure to COVID-19; I48.91 Unspecified atrial fibrillation; R51.9 Headache, unspecified; I50.30 Unspecified diastolic (congestive) heart failure; R53.1 Weakness; Z99.81 Dependence on supplemental oxygen

== ENCOUNTER 2021-01-30 09:20 | Inpatient (IN) ==
[2021-01-30] MEDS ORDERED: DEXTROSE 50%-WATER ABBOJECT IVP STA (09:28)
[2021-01-30 09:48] LABS: BASOPHILS % (AUTO) 0.2 % (0.0-3.0); EOSINOPHILS % (AUTO) 0.1 % (0.0-7.0); HEMOGLOBIN 12.1 g/dl (14.0-18.0); IMMATURE GRANULOCYTE # (AUTO) 0.1 (0.0-1.0); IMMATURE GRANULOCYTE % (AUTO) 0.5 % (0.0-5.0); LYMPHOCYTES # (AUTO) 0.5 K/uL (0.60-3.4); MEAN CORPUSCULAR HEMOGLOBIN 27.5 pg (27.0-31.0); MEAN CORPUSCULAR HGB CONC 32.7 (31.8-35.4); MEAN CORPUSCULAR VOLUME 84.1 fl (80.0-94.0); MONOCYTES # (AUTO) 1.3 K/uL (0.4-2.0); MONOCYTES % (AUTO) 12.8 (0-10); NEUTROPHILS # (AUTO) 8.3 K/ul (2.0-6.9); NEUTROPHILS % (AUTO) 81.8 % (42.2-75.2); PLATELET COUNT 226 10^3/uL (140-440); RDW COEFFICIENT OF VARIATION 18.6 % (11.6-14.8); WHITE BLOOD COUNT 10.17 K/ul (4.2-10.2)
[2021-01-30 09:58] LABS: ALANINE AMINOTRANSFERASE 7.8 U/L (0-50); ALBUMIN 2.86 g/dL (3.5-5.0); ALKALINE PHOSPHATASE 90.4 U/L (56-119); ASPARTATE AMINO TRANSFERASE 26.1 U/L (17-59); BILIRUBIN,TOTAL 1.49 mg/dL (0.2-1.3); BLOOD UREA NITROGEN 19.8 mg/dL (9-20); CALCIUM 7.58 mg/dL (8.4-10.2); CARBON DIOXIDE 35.3 mmol/L (22-30.0); CHLORIDE 93.1 mmol/L (98-107); CREATINE KINASE 36.7 U/L (55-170); CREATININE 0.97 mg/dL (0.60-1.10); SODIUM 134.2 mmol/L (134.5-145); TOTAL PROTEIN 5.75 g/dL (6.3-8.2)
[2021-01-30 10:10] LABS: TROPONIN I 0.043 ng/ml (0.0000-0.120)
[2021-01-30 10:11] LABS: LYMPHOCYTES % (AUTO) 4.6 (10.0-50.0)
[2021-01-30 10:12] LABS: ANISOCYTOSIS 2+ (NOT PRESENT)
[2021-01-30 10:13] LABS: HYPOCHROMASIA 3+ (NOT PRESENT)
[2021-01-30 10:16] LABS: POTASSIUM 2.1 mmol/L (3.5-5.1)
--- NOTE | 2021-01-30 11:02 | ED.PDOC ---
General ED Provider: Dr. ERIK VASQUEZ Chief Complaint: Hypoglycemia Stated Complaint: i had low sugar of 40 and they gave me an iv and i feel better Time Seen by Provider: 01/30/21 09:27 Information Source: Patient Primary Care Provider: SPARKLE TAO Nursing and Triage Documentation Reviewed and Agree: Yes Does patient meet sepsis criteria?: No System Inflammatory Response Syndrome: Not Applicable Sepsis Protocol: For patient's 13 years and over: Temp is 96.8 and below OR 101 and greater Pulse >90 BPM Resp >20/minute Acutely Altered Mental Status Are patient's symptoms suggestive of a new infection, such as: -Pneumonia -Skin, Soft Tissue -Endocarditis -UTI -Bone, Joint Infection -Implantable Device -Acute Abdominal Infection -Wound Infection -Meningitis -Blood Stream Catheter Infection -Unknown Endocrine Complaint Exam Diabetic Complication Complaint/Exam Onset/Duration: this am Symptoms Are: Still present Timing: Constant Initial Severity: Mild Current Severity: Mild Character: Lethargic and Unresponsive Aggravating: Reports Medication change Alleviating: Reports EMS treatment Associated Signs and Symptoms: Denies Decreased LOC, Polydipsia, Polyuria, Polyphagia, Weight loss, Abdominal pain, Nausea, Vomiting, Fever, Diaphoresis an d Fruity breath Related History: Reports Insulin requiring Cardiac Risk Factors: Reports DM CVA Risk Factors: Reports DM Serious Bacterial Infection Risk Factors: Reports None Acetone on Breath: No Dry Mucous Membranes: No Kussmaul Respirations: No Glascow Coma Scale (see protocol): 14 Meningeal Signs: No Focal Weakness: None Focal Sensory Loss: None Gait: Unsteady Nystagmus Present: No Gag Reflex Present: Yes Finger to Nose: Normal Romberg Test Positive: No Babinski Sign: Negative Right and Negative Left Heel to Toe Normal: No Differential Diagnoses: Hypoglycemia Quality Indicator For Non-Traumatic Chest Pain/Syncope: EKG Performed Review of Systems Review Of Systems Constitutional: Reports No symptoms Eyes: Reports No symptoms Ears, Nose, Mouth, Throat: Reports No symptoms Respiratory: Reports No symptoms Cardiac: Reports No symptoms GI: Reports No symptoms : Reports No symptoms Musculoskeletal: Reports No symptoms Skin: Reports No symptoms Neurological: Reports Cognitive dysfunction Endocrine: Reports Excessive sweating Hematologic/Lymphatic: Reports No symptoms All Other Systems: Reviewed and Negative FOR[facility]LY [facility] Medical History A-fib Anemia Anxiety CHF (congestive heart failure) Chronic bronchitis with COPD (chronic obstructive pulmonary disease) Chronic kidney disease, stage 3 Chronic respiratory failure Cor pulmonale (chronic) Dementia Diabetes mellitus, type 2 Diastolic heart failure Dyslipidemia End stage COPD GERD (gastroesophageal reflux disease) History of fall History of subarachnoid hemorrhage Hypertension Hypokalemia Hypothyroid Lumbar radiculopathy Osteoarthritis Oxygen dependent Peripheral vascular disease Sciatica Family History FATHER Heart attack Mother Diabetes Social History Smoking and tobacco status: Never smoker History of recent travel: No Surgical History H/O hernia repair Status post left foot surgery Physical Exam Physical Exam Appearance: Reports Well-appearing Ill-appearing: Not Applicable Pain Distress: Not Applicable Eyes: Reports ELIZA, EOMI and Conjunctiva clear ENT: Reports Ears normal, Nose normal and Oropharynx normal Neck: Supple Respiratory: Reports Airway patent, Breath sounds clear and Breath sounds equal Cardiovascular: Reports RRR, Pulses normal, No rub and No murmur GI/: Reports Soft, Nontender, No masses, Bowel sounds normal and No Organomegaly Musculoskeletal: Reports Normal strength, ROM intact, No edema and No calf tenderness Skin: Reports Warm, Dry and Normal color Neurological: Reports Sensation intact, Motor intact, Reflexes intact, Cranial nerves intact, Alert and Oriented Psychiatric: Reports Affect appropriate and Mood appropriate Interpretation EKG Interpretation Time of EKG #1: 11:01 Rate: Normal Rhythm: Other Ectopy: None [place]: NL ST Segment: Normal Interpretation: afib Physician Notification Case Discussed Physician Notified: dr tao--left message on cell Time of Notification: 11:01 Critical Care Note Critical Care Note Total Critical Care Time (mins): 30 Course Course Hematology/Chemistry: 01/30/21 09:40 01/30/21 09:40 Orders, Labs, Meds: Lab Review 01/30/21 01/30/21 01/30/21 08:20 09:40 09:40 WBC 10.17 RBC 4.40 L Hgb 12.1 L Hct 37.0 L MCV 84.1 MCH 27.5 MCHC 32.7 RDW Coeff of Marek 18.6 H Plt Count 226 Immature Gran % (Auto) 0.5 Neut % (Auto) 81.8 H Lymph % (Auto) 4.6 L [place] % (Auto) 12.8 H Eos % (Auto) 0.1 Baso % (Auto) 0.2 Neut # (Auto) 8.3 H Lymph # (Auto) 0.5 L [place] # (Auto) 1.3 Eos # (Auto) 0.0 Baso # (Auto) 0.0 Immature Gran # (Auto) 0.1 Hypochromasia 3+ Anisocytosis 2+ Sodium 134.2 L Potassium 2.10 L* Chloride 93.1 L Carbon Dioxide 35.3 H Anion Gap 7.90 BUN 19.8 Creatinine 0.97 Estimated GFR (MDRD) 74.00 BUN/Creatinine Ratio 20.41 Glucose 122.0 H Calcium 7.58 L Magnesium 1.23 L Total Bilirubin 1.49 H AST 26.1 ALT 7.8 Alkaline Phosphatase 90.4 Total Creatine Kinase 36.7 L Troponin I 0.043 Total Protein 5.75 L Albumin 2.86 L Globulin 2.89 Albumin/Globulin Ratio 0.98 Orders Category Date Time Status EKG-(ED ONLY) Stat CARDIO 01/30/21 09:27 Completed EKG-(ED ONLY) Stat CARDIO 01/30/21 10:17 Ordered ED ACCUCHECK ASSESSMENT .ONCE EMERGENCY 01/30/21 09:29 Active ED IV/MEDIPORT/POWERPORT .ONCE EMERGENCY 01/30/21 09:31 Active CBC W/ AUTO DIFF Stat LAB 01/30/21 09:40 Completed COMPREHENSIVE METABOLIC PANEL Stat LAB 01/30/21 09:40 Completed CREATINE KINASE Stat LAB 01/30/21 09:40 Completed MAGNESIUM Stat LAB 01/30/21 08:20 Completed RBC MORPHOLOGY Stat LAB 01/30/21 09:40 Completed RESPIRATORY PANEL 2.1 (PCR) Stat LAB 01/30/21 Ordered TROPONIN I Stat LAB 01/30/21 09:40 Completed 0.9 % Sodium Chloride [Saline Flush] MEDS 01/30/21 09:31 Active 1 syr IVF PRN PRN Medications Generic Name Dose Route Start Last Admin Trade Name Freq PRN Reason Stop Dose Admin Sodium Chloride 1 syr 01/30/21 09:31 0.9% Sodium Chloride 10 Ml Disp.Syrin IVF PRN PRN To flush IV Vital Signs: Temp Pulse Resp BP Pulse Ox 01/30/21 09:20 96.4 F L 87 16 119/73 95 Discharge Plan Discharge Patient Disposition: ADMITTED INPATIENT Discharge Problem: Acute hypokalemia Prescriptions: No Action levothyroxine [Synthroid] 125 MCG tablet 125 mcg PO DAILY RF: 0 simvastatin 5 MG tablet 5 mg PO BEDTIME RF: 0 zinc sulfate 220 mg Capsule 220 mg PO DAILY RF: 0 carvedilol [Coreg] 3.125 mg Tablet 3.125 mg PO BID RF: 0 famotidine [Pepcid] 20 mg Tablet 20 mg PO DAILY RF: 0 cholecalciferol (vitamin D3) [Vitamin D3] 25 mcg (1,000 unit) Tablet 5,000 unit PO DAILY RF: 0 alprazolam 0.5 mg Tablet 0.5 mg PO BEDTIME PRN (Reason: Anxiety) RF: 0 Tradjenta 5 mg Tablet 5 mg PO DAILY RF: 0 bumetanide 1 mg tablet 2 mg PO DAILY RF: 0 Calmoseptine 0.44-20.6 % Ointment 1 applic TOPICAL BID RF: 0 bumetanide 1 mg Tablet 1 mg PO DAILY Qty: 30 RF: 1 Lantus U-100 Insulin 100 unit/mL Solution 15 unit SUBCUT BEDTIME Qty: 10 RF: 0 potassium chloride 20 mEq Tablet Extended Release 40 meq PO TID Qty: 90 RF: 0 nystatin 100,000 unit/gram Powder 1 applic TOPICAL BID Qty: 15 RF: 1 Eliquis 2.5 MG tablet 2.5 mg PO BID RF: 0 duloxetine [Cymbalta] 60 mg Capsule,Delayed Release(Dr/Ec) 60 mg PO DAILY RF: 0 albuterol sulfate [ProAir HFA] 90 mcg/actuation Hfa Aerosol Inhaler 2 puff INHALATION Q6H Qty: 18 RF: 0 acetaminophen [Tylenol] 325 mg Capsule 650 mg PO TID PRN (Reason: Pain) Qty: 90 RF: 0 bisacodyl [Dulcolax (bisacodyl)] 5 mg Tablet,Delayed Release (Dr/Ec) 5 mg PO QDAY PRN (Reason: Constipation) Qty: 1 RF: 0 diltiazem HCl 60 mg Capsule,Extended Release 12 Hr 60 mg PO BID Qty: 60 RF: 0 escitalopram oxalate [Lexapro] 5 mg Tablet 5 mg PO DAILY Qty: 30 RF: 0 Atrovent HFA 17 mcg/actuation Hfa Aerosol Inhaler 2 puff INHALATION Q6HR Qty: 18 RF: 0 magnesium hydroxide 400 mg/5 mL Suspension 30 ml PO DAILY PRN (Reason: Constipation) Qty: 30 RF: 0 polyethylene glycol 3350 [Miralax] 17 gram/dose Powder 17 g PO DAILY PRN (Reason: Constipation) Qty: 510 RF: 0 Saccharomyces boulardii [Florastor] 250 mg Capsule 250 mg PO BID Qty: 60 RF: 0 tramadol 50 mg Tablet 50 mg PO BID Qty: 60 RF: 2 ED Provider: ERIK VASQUEZ Condition: Stable Physician Progress Note: []
[2021-01-30 11:03] LABS: BORDETELLA PARAPERTUSSIS (PCR) NOT DETECTED (NOT DETECT); BORDETELLA PERTUSSIS (PCR) NOT DETECTED (NOT DETECT); CHLAMYDIA PNEUMONIAE (PCR) NOT DETECTED (NOT DETECT); CORONAVIRUS 229E (PCR) NOT DETECTED (NOT DETECT); CORONAVIRUS HKU1 (PCR) NOT DETECTED (NOT DETECT); CORONAVIRUS NL63 (PCR) NOT DETECTED (NOT DETECT); CORONAVIRUS OC43 (PCR) NOT DETECTED (NOT DETECT); HUMAN METAPNEUMOVIRUS (PCR) NOT DETECTED (NOT DETECT); HUMAN RHINOVIRUS/ENTEROV (PCR) NOT DETECTED (NOT DETECT); INFLUENZA B (PCR) NOT DETECTED (NOT DETECT); MYCOPLASMA PNEUMONIAE (PCR) NOT DETECTED (NOT DETECT); PARAINFLUENZA VIRUS 1 (PCR) NOT DETECTED (NOT DETECT); PARAINFLUENZA VIRUS 2 (PCR) NOT DETECTED (NOT DETECT); PARAINFLUENZA VIRUS 3 (PCR) NOT DETECTED (NOT DETECT); PARAINFLUENZA VIRUS 4 (PCR) NOT DETECTED (NOT DETECT); RESPIRATORY SYNCYTIAL V (PCR) NOT DETECTED (NOT DETECT); SARS_COV_2 (PCR) NOT DETECTED (NOT DETECT)
[2021-01-30] MEDS ORDERED: DULCOLAX PO PRN (11:19)
[2021-01-30] MEDS ORDERED: MILK OF MAGNESIA PO PRN (11:19)
[2021-01-30] MEDS ORDERED: XANAX PO PRN (11:19)
[2021-01-30] MEDS ORDERED: MAGNESIUM SULFATE 1 GM/100 ML D5W 2 GM/200 ML BAG IV STA (11:24)
[2021-01-30] MEDS ORDERED: POTASSIUM CHLORIDE 10 MEQ/100 ML PREMIX 10 MEQ/100 ML BAG IV STA (11:24)
[2021-01-30] MEDS ORDERED: MAGNESIUM SULFATE 1 GM/100 ML IV STA (11:28)
[2021-01-30] MEDS ORDERED: DEXTROSE IV STA (11:28)
[2021-01-30] MEDS ORDERED: POTASSIUM CHLORIDE 10 MEQ/100 ML PREMIX 10 MEQ/100 ML BAG IV ONE (11:31)
[2021-01-30 11:59] LABS: ADENOVIRUS (PCR) NOT DETECTED (NOT DETECT)
[2021-01-30] MEDS ORDERED: VENTOLIN HFA (PER PUFF-WITH SPACER) IH SCH ×2 (12:00→14:00)
[2021-01-30] MEDS ORDERED: ATROVENT HFA INHALER (SINGLE PATIENT USE) IH SCH (12:00)
[2021-01-30] MEDS ORDERED: VENTOLIN HFA (PER PUFF-WITH SPACER) IH ONE (12:11)
[2021-01-30] MEDS: K-DUR PO SCH ×5 (13:34→21:55)
[2021-01-30 15:34] VITALS: BMI 26.1
[2021-01-30] MEDS ORDERED: ATROPINE SULFATE PFS IVP PRN (17:07)
[2021-01-30] MEDS ORDERED: NITROSTAT SL PRN (17:07)
[2021-01-30] MEDS: VENTOLIN HFA (PER PUFF-WITH SPACER) IH SCH ×2 (17:34→23:14)
[2021-01-30] MEDS: ATROVENT HFA INHALER (PER PUFF-WITH SPACER) IH SCH ×2 (17:36→23:14)
[2021-01-30] MEDS: COREG PO SCH (17:39)
[2021-01-30] MEDS ORDERED: MIRALAX PO PRN (18:37)
[2021-01-30] MEDS: ELIQUIS PO SCH ×2 (18:46→20:42)
--- NOTE | 2021-01-30 19:09 | DI ---
EXAM: Single, portable AP view(s) chest. HISTORY: Shortness of breath. COMPARISON: 12/28/2020 TECHNIQUE: Single, portable AP view(s) of the chest. FINDINGS: Lungs: The lung voulmes are normal.Bilateral pleural effusions, right greater left. Adjacent consoli dation. There are no suspicious nodules. There is no pneumothorax. Cardiovascular: The heart size and pulmonary vasculature is normal.. The aorta is unremarkable. Rita/Mediastinum: Normal. Osseous structures. Normal for age. IMPRESSION: Bilateral pleural effusion with adjacent consolidation. Findings suggest pneumonia.
[2021-01-30] MEDS: NYSTOP POWDER TP SCH (20:38)
[2021-01-30] MEDS: ULTRAM PO SCH (20:39)
[2021-01-30] MEDS: CARDIZEM PO SCH (20:39)
[2021-01-30] MEDS: ZOCOR PO SCH (20:39)
[2021-01-30] MEDS: FLORASTOR PO SCH (20:39)
[2021-01-30] MEDS: CALMOSEPTINE OINTMENT TP SCH (20:42)
[2021-01-30] MEDS ORDERED: LANTUS SUBCUT SCH (21:00)
[2021-01-31] MEDS: K-DUR PO SCH ×2 (00:05→20:43)
[2021-01-31 00:33] LABS: BILIRUBIN,URINE Negative (NEGATIVE); COLOR,URINE Yellow (YELLOW); GLUCOSE, URINE (UA) Negative (NEGATIVE); KETONES,URINE Negative (NEGATIVE); LEUKOCYTE ESTERASE ,URINE 2+ (NEGATIVE); NITRITE,URINE Negative (NEGATIVE); PH,URINE 5.5 (5-9); PROTEIN,URINE Negative (NEGATIVE); URINE, BLOOD Trace-intact (NEGATIVE)
[2021-01-31 00:34] LABS: CLARITY,URINE HAZY (CLEAR)
[2021-01-31 00:40] LABS: BACTERIA,URINE TRACE (NOT PRESENT); SQUAMOUS EPITHELIAL CELL,UR 0-2 (0-5); URINE RBC, MICROSCOPIC 0-2 (0-2)
[2021-01-31] MEDS: VENTOLIN HFA (PER PUFF-WITH SPACER) IH SCH ×4 (04:40→23:00)
[2021-01-31] MEDS: ATROVENT HFA INHALER (PER PUFF-WITH SPACER) IH SCH ×4 (04:40→23:00)
[2021-01-31 05:16] LABS: BASOPHILS % (AUTO) 0.3 % (0.0-3.0); EOSINOPHILS # (AUTO) 0.2 K/ul (0.0-0.7); HEMATOCRIT 35.3 % (42.0-52.0); HEMOGLOBIN 11.7 g/dl (14.0-18.0); IMMATURE GRANULOCYTE # (AUTO) 0.1 (0.0-1.0); IMMATURE GRANULOCYTE % (AUTO) 0.7 % (0.0-5.0); LYMPHOCYTES # (AUTO) 0.8 K/uL (0.60-3.4); LYMPHOCYTES % (AUTO) 10.7 (10.0-50.0); MEAN CORPUSCULAR HEMOGLOBIN 27.8 pg (27.0-31.0); MEAN CORPUSCULAR HGB CONC 33.1 (31.8-35.4); MEAN CORPUSCULAR VOLUME 83.8 fl (80.0-94.0); MONOCYTES % (AUTO) 13.8 (0-10); NEUTROPHILS # (AUTO) 5.5 K/ul (2.0-6.9); NEUTROPHILS % (AUTO) 72.5 % (42.2-75.2); PLATELET COUNT 244 10^3/uL (140-440); RDW COEFFICIENT OF VARIATION 18.8 % (11.6-14.8); RED BLOOD COUNT 4.21 10^6/ul (4.70-6.10); WHITE BLOOD COUNT 7.51 K/ul (4.2-10.2)
[2021-01-31] MEDS: SYNTHROID PO SCH ×2 (05:31)
[2021-01-31 05:32] LABS: ALANINE AMINOTRANSFERASE 9.4 U/L (0-50); ALBUMIN 2.72 g/dL (3.5-5.0); ALKALINE PHOSPHATASE 77.7 U/L (56-119); ASPARTATE AMINO TRANSFERASE 37.9 U/L (17-59); BILIRUBIN,TOTAL 1.01 mg/dL (0.2-1.3); BLOOD UREA NITROGEN 23.4 mg/dL (9-20); CALCIUM 7.63 mg/dL (8.4-10.2); CARBON DIOXIDE 30.6 mmol/L (22-30.0); CHLORIDE 97.4 mmol/L (98-107); CREATININE 0.87 mg/dL (0.60-1.10); MAGNESIUM 2.11 mg/dL (1.6-2.3); POTASSIUM 4.63 mmol/L (3.5-5.1); SODIUM 132.4 mmol/L (134.5-145); TOTAL PROTEIN 5.64 g/dL (6.3-8.2)
[2021-01-31 05:39] LABS: GLUCOSE 40.6 mg/dL (74-106)
[2021-01-31] MEDS ORDERED: K-DUR PO SCH (09:00)
[2021-01-31] MEDS ORDERED: TRADJENTA PO SCH (09:00)
[2021-01-31] MEDS: BUMEX PO SCH ×2 (09:38→09:39)
[2021-01-31] MEDS: PEPCID PO SCH (09:39)
[2021-01-31] MEDS: VITAMIN D PO SCH (09:41)
[2021-01-31] MEDS: FLORASTOR PO SCH ×2 (09:44→20:43)
[2021-01-31] MEDS: ZINC-220 PO SCH (09:44)
[2021-01-31] MEDS: ULTRAM PO SCH ×2 (09:45→20:43)
[2021-01-31] MEDS: CYMBALTA PO SCH (09:45)
[2021-01-31] MEDS: COREG PO SCH ×2 (09:45→17:31)
[2021-01-31] MEDS: CARDIZEM PO SCH ×2 (09:45→20:43)
[2021-01-31] MEDS: LEXAPRO PO SCH (09:45)
[2021-01-31] MEDS: NYSTOP POWDER TP SCH ×2 (09:46→20:45)
[2021-01-31] MEDS: ELIQUIS PO SCH ×2 (09:47→20:45)
[2021-01-31] MEDS: CALMOSEPTINE OINTMENT TP SCH ×2 (13:43→21:00)
[2021-01-31] MEDS: ZOCOR PO SCH (20:43)
[2021-02-01] MEDS: VENTOLIN HFA (PER PUFF-WITH SPACER) IH SCH ×3 (04:30→17:13)
[2021-02-01] MEDS: ATROVENT HFA INHALER (PER PUFF-WITH SPACER) IH SCH ×3 (04:30→17:13)
[2021-02-01 04:53] LABS: BASOPHILS % (AUTO) 0.6 % (0.0-3.0); EOSINOPHILS # (AUTO) 0.2 K/ul (0.0-0.7); EOSINOPHILS % (AUTO) 2.6 % (0.0-7.0); HEMATOCRIT 35.7 % (42.0-52.0); HEMOGLOBIN 11.1 g/dl (14.0-18.0); IMMATURE GRANULOCYTE % (AUTO) 0.4 % (0.0-5.0); LYMPHOCYTES # (AUTO) 0.7 K/uL (0.60-3.4); LYMPHOCYTES % (AUTO) 10.3 (10.0-50.0); MEAN CORPUSCULAR HEMOGLOBIN 26.9 pg (27.0-31.0); MEAN CORPUSCULAR HGB CONC 31.1 (31.8-35.4); MEAN CORPUSCULAR VOLUME 86.7 fl (80.0-94.0); MONOCYTES # (AUTO) 0.9 K/uL (0.4-2.0); MONOCYTES % (AUTO) 13.1 (0-10); NEUTROPHILS # (AUTO) 5.3 K/ul (2.0-6.9); PLATELET COUNT 229 10^3/uL (140-440); RDW COEFFICIENT OF VARIATION 18.8 % (11.6-14.8); RED BLOOD COUNT 4.12 10^6/ul (4.70-6.10)
[2021-02-01 05:08] LABS: ALANINE AMINOTRANSFERASE 10.6 U/L (0-50); ALBUMIN 2.66 g/dL (3.5-5.0); ALKALINE PHOSPHATASE 87.2 U/L (56-119); ASPARTATE AMINO TRANSFERASE 31.7 U/L (17-59); BILIRUBIN,TOTAL 0.83 mg/dL (0.2-1.3); BLOOD UREA NITROGEN 23.3 mg/dL (9-20); CALCIUM 7.7 mg/dL (8.4-10.2); CARBON DIOXIDE 30.5 mmol/L (22-30.0); CHLORIDE 98.3 mmol/L (98-107); CREATININE 0.95 mg/dL (0.60-1.10); GLUCOSE 144.3 mg/dL (74-106); POTASSIUM 4.19 mmol/L (3.5-5.1); SODIUM 133.3 mmol/L (134.5-145); TOTAL PROTEIN 5.47 g/dL (6.3-8.2)
[2021-02-01] MEDS: SYNTHROID PO SCH ×2 (05:44)
[2021-02-01] MEDS: HUMULIN R SUBCUT PRN ×2 (05:48→20:31)
[2021-02-01] MEDS: NYSTOP POWDER TP SCH ×2 (08:57→20:28)
[2021-02-01] MEDS: BUMEX PO SCH ×2 (08:58)
[2021-02-01] MEDS: VITAMIN D PO SCH (08:59)
[2021-02-01] MEDS: CYMBALTA PO SCH (09:00)
[2021-02-01] MEDS: FLORASTOR PO SCH ×2 (09:00→20:45)
[2021-02-01] MEDS: ZINC-220 PO SCH (09:01)
[2021-02-01] MEDS: PEPCID PO SCH (09:01)
[2021-02-01] MEDS: ELIQUIS PO SCH ×2 (09:02→20:28)
[2021-02-01] MEDS: ULTRAM PO SCH ×2 (09:03→20:25)
[2021-02-01] MEDS: K-DUR PO SCH ×2 (09:03→20:25)
[2021-02-01] MEDS: CARDIZEM PO SCH ×2 (09:03→20:25)
[2021-02-01] MEDS: LEXAPRO PO SCH (09:05)
[2021-02-01] MEDS: COREG PO SCH ×2 (09:05→17:38)
--- NOTE | 2021-02-01 09:18 | PCM.PROG ---
Attending Provider: ATTENDING PROVIDER: Dr. SPARKLE MART This patient is seen with Cary Xavier, Nurse Practitioner. DATE OF SERVICE: 02/01/21 SUBJECTIVE: This 85 year old /WHITE M was hospitalized 01/30/21. The patient is resting comfortably in bed. He is not eating as much. Potassium improved. Denies cough. No fever. REVIEW OF SYSTEMS: CONSTITUTIONAL: Weakness and fatigue. No night sweats. No malaise, lethargy. No fever or chills. HEENT: Eyes: No visual changes. No eye pain. No eye discharge. ENT: No runny nose. No epistaxis. No sinus pain. No odynophagia. No congestion. RESPIRATORY: No cough, no congestion. No hemoptysis. No shortness of breath. CARDIOVASCULAR: No angina symptoms. No CHF symptoms. No atypical chest pain for CAD. No palpitations. No orthopnea.. GASTROINTESTINAL: No abdominal pain. No nausea or vomiting. No diarrhea or constipation. No hematemesis. No hematochezia. GENITOURINARY: No urgency. No frequency. No dysuria. No hematuria. No obstructive symptoms. No discharge. No pain. No significant abnormal bleeding. MUSCULOSKELETAL: No musculoskeletal pain; no joint swelling. NEUROLOGICAL: Awake, alert, oriented to time, place and person. No headache. No neck pain. No syncope. No seizures. No dizziness. PSYCHIATRIC: Not anxious. No depression. No suicidal thoughts. No homicidal thoughts. SKIN: No rash. No lesions. No wounds. ENDOCRINE: No unexplained weight loss. No weight gain. HEMATOLOGIC/LYMPHATIC: No anemia. No purpura. No petechiae. No prolonged or excessive bleeding. No palpable lymph nodes. PHYSICAL EXAMINATION: GENERAL: The patient is awake, alert and oriented, lying/sitting in bed in no distress. VITAL SIGNS: Temperature 97.3 F, Pulse 97, Respiratory Rate 18, BP 98/71, Pulse Ox 95% HEENT: Head normocephalic, atraumatic. Eyes: Extraocular muscles are intact. Pupils are equal, round and reactive to light and accommodation. Ears: No lesions. Nose appeared normal. Throat: No exudate or erythema. NECK: Supple. No JVD, no carotid bruit. No lymphadenopathy or thyromegaly. LUNGS: Diminished breath sounds. Clear to auscultation. Percussion note normal. Chest symmetrical. HEART: S1, S2, no S3. No murmurs. No cyanosis or clubbing. No ascites. Pulses: Dorsalis pedis and posterior tibial pulses +1 to +2 both sides. ABDOMEN: Soft. Non-tender. Bowel sounds active. No CVA tenderness. No mass felt. EXTREMITIES: Trace edema. Full range of motion of all extremities, equal. NEUROLOGIC: No focal deficit. Cranial nerves II through XII are grossly intact. No headache. No double vision. SKIN: Not dry. Intact. Turgor-normal. LYMPHATIC: No palpable lymph nodes/no lymphedema. MUSCULOSKELETAL: Normal joints with no swelling. Muscle tone is normal. LAB REVIEW: 02/01/21 04:35 02/01/21 04:35 02/01/21 04:35: Sodium 133.3 L, Potassium 4.19, Chloride 98.3, Carbon Dioxide 30.5 H, Anion Gap 8.69, BUN 23.3 H, Creatinine 0.95, Estimated GFR (MDRD) 75.00, BUN/Creatinine Ratio 24.52, Glucose 144.3 H D, Calcium 7.70 L, Total Bilirubin 0.83, AST 31.7, ALT 10.6, Alkaline Phosphatase 87.2, Total Protein 5.47 L, Albumin 2.66 L, Globulin 2.81, Albumin/Globulin Ratio 0.94 02/01/21 04:35: WBC 7.20, RBC 4.12 L, Hgb 11.1 L, Hct 35.7 L, MCV 86.7, MCH 26.9 L, MCHC 31.1 L, RDW Coeff of Marek 18.8 H, Plt Count 229, Immature Gran % (Auto) 0.4, Neut % (Auto) 73.0, Lymph % (Auto) 10.3, [place] % (Auto) 13.1 H, Eos % (Auto) 2.6, Baso % (Auto) 0.6, Neut # (Auto) 5.3, Lymph # (Auto) 0.7, [place] # (Auto) 0.9, Eos # (Auto) 0.2, Baso # (Auto) 0.0, Immature Gran # (Auto) 0.0 ASSESSMENT: Please see below. 1. Hypokalemia, improved. 2. Hyponatremia. 3. Chronic kidney disease. 4. Chronic anemia. 5. COPD. 6. Atrial fibrillation. 7. Diabetes mellitus, Type 2. PLAN: 1. Repeat A1C. Plan and coordination of the patient's care discussed in the presence of Air Pollution Control Engineer and nurse. CONDITION: Stable SCRIBED BY: HARRY VERA Pharmacy Operations Specialist scribed while in presence of service performed by Dr. Mart/Cary Xavier APRN on 02/01/21 ([id number])
--- NOTE | 2021-02-01 09:52 | PN ---
DATE OF SERVICE: 01/31/2021 SUBJECTIVE: The patient is seen and examined today. The patient's condition is improving and stable. He is feeling better. The patient was hospitalized with hypoglycemia and hypokalemia. Hypokalemia has resolved. The patient's blood sugar was 40 this morning. REVIEW OF SYSTEMS: CONSTITUTIONAL: No night sweats. No fatigue, malaise, lethargy. No fever or chills. Feels somewhat weak and tired. HEENT: Eyes: No visual changes. No eye pain. No eye discharge. ENT: No runny nose. No epistaxis. No sinus pain. No sore throat. No odynophagia. No congestion. RESPIRATORY: No cough, no congestion. No hemoptysis. No shortness of breath. CARDIOVASCULAR: No angina symptoms. No CHF symptoms. No atypical chest pain for CAD. No palpitations. No PND. No orthopnea. GASTROINTESTINAL: No abdominal pain. No nausea or vomiting. No diarrhea or constipation. No hematemesis. No hematochezia. GENITOURINARY: No urgency. No frequency. No dysuria. No hematuria. No obstructive symptoms. No discharge. No pain. No significant abnormal bleeding. MUSCULOSKELETAL: No musculoskeletal pain; no joint swelling. NEUROLOGICAL: No headache. No neck pain. No syncope. No seizures. No dizziness. PSYCHIATRIC: Not anxious. No depression. No suicidal thoughts. No homicidal thoughts. SKIN: No rash. No lesions. No wounds. ENDOCRINE: No unexplained weight loss. No weight gain. HEMATOLOGIC/LYMPHATIC: No anemia. No purpura. No petechiae. No prolonged or excessive bleeding. No palpable lymph nodes. PHYSICAL EXAMINATION: VITAL SIGNS: Temperature 96.9, pulse 80, respiratory rate 16, blood pressure 100/76 and pulse ox 99% with 2 liters. HEENT: Head normocephalic, atraumatic. Eyes: Extraocular muscles are intact. Pupils are equal, round and reactive to light and accommodation. Ears: No lesions. Nose appeared normal. Throat: No exudate or erythema. NECK: Supple. No JVD, no carotid bruit. No lymphadenopathy or thyromegaly. LUNGS: Decreased breath sounds but clear to auscultation. Percussion note normal. Chest symmetrical. HEART: S1, S2, no S3. No murmurs. No cyanosis or clubbing. No ascites. Pulses: Dorsalis pedis and posterior tibial pulses +1 to +2 bilaterally. ABDOMEN: Soft. Nontender. Bowel sounds active. No CVA tenderness. No mass felt. EXTREMITIES: Trace to +1 pitting edema. Full range of motion of all extremities, equal. NEUROLOGIC: No focal deficit. Cranial nerves II through XII are grossly intact. No headache. No double vision. SKIN: Not dry. Intact. Turgor - normal. LYMPHATIC: No palpable lymph nodes/no lymphedema. MUSCULOSKELETAL: Normal joints with no swelling. Muscle tone is normal. LABS: Hgb 11.7, hct 35, WBC 7,500 normal differential, creatinine 0.8, BUN 23 and potassium 4.6. Glucose 40 this morning ASSESSMENT: 1. Hypokalemia seems to have resolved 2. Dehydration resolved 3. Hypoglycemia 4. Biventricular failure 5. Chronic lung disease PLAN: 1. Discontinue Linogliride that is Tradjenta 2. Discontinue Lantus 3. The patient is on Accu-check with coverage 4. Potassium to be decreased from 40mg QID to 40 BID 5. We will monitor CBC and CMP daily TIME SPENT: More than 30 minutes. Plan and coordination of the patient's care discussed in the presence of nurse. MATTHEW
--- NOTE | 2021-02-01 14:41 | PN ---
DATE OF SERVICE: 01/30/2021 ADMIT NOTE SUBJECTIVE: The patient was [facility] from the [facility] because his condition was deteriorating with weakness. The nurse in the [facility] wanted labs to be done but then she was advised to send the patient to the emergency room. In the ER the patient was seen and examined by ER attending. Routine workup showed that he was hypoglycemic the patient's Potassium was 2.1. The patient has history of hypokalemia in the past. Similar variety. REVIEW OF SYSTEMS: CONSTITUTIONAL: No night sweats. No malaise, lethargy. No fever or chills. Weakness and fatigue. HEENT: Eyes: No visual changes. No eye pain. No eye discharge. ENT: No runny nose. No epistaxis. No sinus pain. No sore throat. No odynophagia. No congestion. RESPIRATORY: No cough, no congestion. No hemoptysis. Shortness of breath. CARDIOVASCULAR: No angina symptoms. No CHF symptoms. No atypical chest pain for CAD. No palpitations. No PND. No orthopnea. GASTROINTESTINAL: No abdominal pain. No nausea or vomiting. No diarrhea or constipation. No hematemesis. No hematochezia. GENITOURINARY: No urgency. No frequency. No dysuria. No hematuria. No obstructive symptoms. No discharge. No pain. No significant abnormal bleeding. MUSCULOSKELETAL: No musculoskeletal pain; no joint swelling. Generalized leg swelling. NEUROLOGICAL: No headache. No neck pain. No syncope. No seizures. No dizziness. PSYCHIATRIC: Not anxious. No depression. No suicidal thoughts. No homicidal thoughts. SKIN: No rash. No lesions. No wounds. ENDOCRINE: No unexplained weight loss. No weight gain. HEMATOLOGIC/LYMPHATIC: No anemia. No purpura. No petechiae. No prolonged or excessive bleeding. No palpable lymph nodes. PHYSICAL EXAMINATION: HEENT: Head normocephalic, atraumatic. Eyes: Extraocular muscles are intact. Pupils are equal, round and reactive to light and accommodation. Ears: No lesions. Nose appeared normal. Throat: No exudate or erythema. NECK: Supple. No JVD, no carotid bruit. No lymphadenopathy or thyromegaly. LUNGS:Decreased breath sounds but good air entry. Percussion note normal. Chest symmetrical. HEART: S1, S2, no S3. No murmurs. No cyanosis or clubbing. No ascites. Pulses: Dorsalis pedis and posterior tibial pulses +1 to +2 bilaterally. ABDOMEN: Soft. Nontender. Bowel sounds active. No CVA tenderness. No mass felt. EXTREMITIES: +1 to +2 pitting edema arms and legs. Full range of motion of all extremities, equal. NEUROLOGIC: No focal deficit. Cranial nerves II through XII are grossly intact. No headache. No double vision. SKIN: Not dry. Intact. Turgor - normal. LYMPHATIC: No palpable lymph nodes/no lymphedema. MUSCULOSKELETAL: Normal joints with no swelling. Muscle tone is normal. ASSESSMENT: 1. Electrolyte imbalance with severe hypokalemia 2. Hypoglycemia 3. Severe chronic lung disease 4. History of CHF with Cor-pulmonale PLAN: 1. IV Lasix 2. Elevate the legs 3. Potassium supplements to be given at 150meq to be given today, 80meq PO 4. We will monitor telemetry 5. Will monitor CBC and CMP 6. Monitor for fluid overload The patient had valvules 3-4 weeks ago which was treated at one of the [facility]. TIME SPENT: More than 30 minutes. Plan and coordination of the patient's care discussed in the presence of nurse. MATTHEW
[2021-02-01] MEDS: TOBREX 0.3% EACHEYE SCH ×2 (15:57→20:27)
[2021-02-01] MEDS: CALMOSEPTINE OINTMENT TP SCH ×2 (17:39→20:27)
[2021-02-01] MEDS: ROCEPHIN 1 GM/50 ML D5W 1 GM/50 ML BAG IV SCH (18:22)
[2021-02-01] MEDS: ZOCOR PO SCH (20:26)
[2021-02-02] MEDS: VENTOLIN HFA (PER PUFF-WITH SPACER) IH SCH ×3 (00:03→11:59)
[2021-02-02] MEDS: ATROVENT HFA INHALER (PER PUFF-WITH SPACER) IH SCH ×3 (00:03→11:59)
[2021-02-02 04:42] LABS: BASOPHILS % (AUTO) 0.6 % (0.0-3.0); EOSINOPHILS # (AUTO) 0.2 K/ul (0.0-0.7); EOSINOPHILS % (AUTO) 3.4 % (0.0-7.0); HEMATOCRIT 33.9 % (42.0-52.0); HEMOGLOBIN 10.8 g/dl (14.0-18.0); IMMATURE GRANULOCYTE % (AUTO) 0.4 % (0.0-5.0); LYMPHOCYTES # (AUTO) 0.8 K/uL (0.60-3.4); LYMPHOCYTES % (AUTO) 11.4 (10.0-50.0); MEAN CORPUSCULAR HEMOGLOBIN 27.2 pg (27.0-31.0); MEAN CORPUSCULAR HGB CONC 31.9 (31.8-35.4); MEAN CORPUSCULAR VOLUME 85.4 fl (80.0-94.0); MONOCYTES # (AUTO) 0.9 K/uL (0.4-2.0); MONOCYTES % (AUTO) 13.4 (0-10); NEUTROPHILS # (AUTO) 4.9 K/ul (2.0-6.9); NEUTROPHILS % (AUTO) 70.8 % (42.2-75.2); PLATELET COUNT 244 10^3/uL (140-440); RDW COEFFICIENT OF VARIATION 18.9 % (11.6-14.8); RED BLOOD COUNT 3.97 10^6/ul (4.70-6.10); WHITE BLOOD COUNT 6.85 K/ul (4.2-10.2)
[2021-02-02 04:57] LABS: ALANINE AMINOTRANSFERASE 11.1 U/L (0-50); ALBUMIN 2.62 g/dL (3.5-5.0); ALKALINE PHOSPHATASE 91.4 U/L (56-119); ASPARTATE AMINO TRANSFERASE 31.8 U/L (17-59); BILIRUBIN,TOTAL 0.76 mg/dL (0.2-1.3); BLOOD UREA NITROGEN 22.5 mg/dL (9-20); CALCIUM 7.74 mg/dL (8.4-10.2); CHLORIDE 99.1 mmol/L (98-107); CREATININE 1.03 mg/dL (0.60-1.10); GLUCOSE 120.5 mg/dL (74-106); POTASSIUM 4.21 mmol/L (3.5-5.1); SODIUM 134.2 mmol/L (134.5-145); TOTAL PROTEIN 5.35 g/dL (6.3-8.2)
[2021-02-02] MEDS: SYNTHROID PO SCH ×2 (05:30)
[2021-02-02] MEDS: TOBREX 0.3% EACHEYE SCH ×2 (05:33→13:21)
[2021-02-02 05:49] VITALS: BP 108/67; TEMP 97.7
[2021-02-02] MEDS: BUMEX PO SCH (08:25)
[2021-02-02] MEDS: PEPCID PO SCH (08:25)
[2021-02-02] MEDS: ULTRAM PO SCH (08:25)
[2021-02-02] MEDS: ZINC-220 PO SCH (08:25)
[2021-02-02] MEDS: K-DUR PO SCH (08:25)
[2021-02-02] MEDS: VITAMIN D PO SCH (08:25)
[2021-02-02] MEDS: FLORASTOR PO SCH (08:25)
[2021-02-02] MEDS: CARDIZEM PO SCH (08:25)
[2021-02-02] MEDS: CYMBALTA PO SCH (08:25)
[2021-02-02] MEDS: COREG PO SCH (08:25)
[2021-02-02] MEDS: LEXAPRO PO SCH (08:26)
[2021-02-02] MEDS: CALMOSEPTINE OINTMENT TP SCH (08:26)
[2021-02-02] MEDS: NYSTOP POWDER TP SCH (08:27)
[2021-02-02] MEDS: ELIQUIS PO SCH (08:27)
--- NOTE | 2021-02-02 09:10 | PCM.PROG ---
Attending Provider: ATTENDING PROVIDER: Dr. SPARKLE MART This patient is seen with Cary Xavier, Nurse Practitioner. DATE OF SERVICE: 02/02/21 SUBJECTIVE: This 86 year old /WHITE M was hospitalized 01/30/21. The patient is resting comfortably in bed. Potassium improved. He does have periods of episodic confusion, which is normal for him. Sugar has been stable. Will plan on discharge back to [facility] today. Urine positive for Enterococcus. REVIEW OF SYSTEMS: CONSTITUTIONAL: Weakness. No night sweats. No fatigue, malaise, lethargy. No fever or chills. HEENT: Eyes: No visual changes. No eye pain. No eye discharge. ENT: No runny nose. No epistaxis. No sinus pain. No odynophagia. No congestion. RESPIRATORY: No cough, no congestion. No hemoptysis. No shortness of breath. CARDIOVASCULAR: No angina symptoms. No CHF symptoms. No atypical chest pain for CAD. No palpitations. No orthopnea.. GASTROINTESTINAL: No abdominal pain. No nausea or vomiting. No diarrhea or constipation. No hematemesis. No hematochezia. GENITOURINARY: No urgency. No frequency. No dysuria. No hematuria. No obstructive symptoms. No discharge. No pain. No significant abnormal bleeding. MUSCULOSKELETAL: No musculoskeletal pain; no joint swelling. NEUROLOGICAL: Awake, alert, oriented to time, place and person. No headache. No neck pain. No syncope. No seizures. No dizziness. PSYCHIATRIC: Not anxious. No depression. No suicidal thoughts. No homicidal thoughts. SKIN: No rash. No lesions. No wounds. ENDOCRINE: No unexplained weight loss. No weight gain. HEMATOLOGIC/LYMPHATIC: No anemia. No purpura. No petechiae. No prolonged or excessive bleeding. No palpable lymph nodes. PHYSICAL EXAMINATION: GENERAL: The patient is awake, alert and oriented, lying/sitting in bed in no distress. VITAL SIGNS: Temperature 97.7 F, Pulse 96, Respiratory Rate 18, BP 108/67, Pulse Ox 96% HEENT: Head normocephalic, atraumatic. Eyes: Extraocular muscles are intact. Pupils are equal, round and reactive to light and accommodation. Ears: No lesions. Nose appeared normal. Throat: No exudate or erythema. NECK: Supple. No JVD, no carotid bruit. No lymphadenopathy or thyromegaly. LUNGS: Diminished breath sounds. Clear to auscultation. Percussion note normal. Chest symmetrical. HEART: Irregular heart rate. S1, S2, no S3. No murmurs. No cyanosis or clubbing. No ascites. Pulses: Dorsalis pedis and posterior tibial pulses +1 to +2 both sides. ABDOMEN: Soft. Non-tender. Bowel sounds active. No CVA tenderness. No mass felt. EXTREMITIES: Trace bilateral lower extremity edema. Full range of motion of all extremities, equal. NEUROLOGIC: No focal deficit. Cranial nerves II through XII are grossly intact. No headache. No double vision. SKIN: Not dry. Intact. Turgor-normal. LYMPHATIC: No palpable lymph nodes/no lymphedema. MUSCULOSKELETAL: Normal joints with no swelling. Muscle tone is normal. LAB REVIEW: 02/02/21 04:20 02/02/21 04:20 02/02/21 04:20: Sodium 134.2 L, Potassium 4.21, Chloride 99.1, Carbon Dioxide 32.0 H, Anion Gap 7.31, BUN 22.5 H, Creatinine 1.03, Estimated GFR (MDRD) 68.00, BUN/Creatinine Ratio 21.84, Glucose 120.5 H, Calcium 7.74 L, Total Bilirubin 0.76, AST 31.8, ALT 11.1, Alkaline Phosphatase 91.4, Total Protein 5.35 L, Albumin 2.62 L, Globulin 2.73, Albumin/Globulin Ratio 0.95 02/02/21 04:20: WBC 6.85, RBC 3.97 L, Hgb 10.8 L, Hct 33.9 L, MCV 85.4, MCH 27.2, MCHC 31.9, RDW Coeff of Marek 18.9 H, Plt Count 244, Immature Gran % (Auto) 0.4, Neut % (Auto) 70.8, Lymph % (Auto) 11.4, [place] % (Auto) 13.4 H, Eos % (Auto) 3.4, Baso % (Auto) 0.6, Neut # (Auto) 4.9, Lymph # (Auto) 0.8, [place] # (Auto) 0.9, Eos # (Auto) 0.2, Baso # (Auto) 0.0, Immature Gran # (Auto) 0.0 02/01/21 04:35: Hemoglobin A1c 6.40 H ASSESSMENT: Please see below. 1. Hypokalemia resolved. 2. Hypoglycemia with diabetes mellitus type 2, resolved. 3. UTI positive for enterococcus. 4. Chronic anemia. 5. Chronic kidney disease. PLAN: 1. Sliding scale b.i.d. 2. T4, TSH 3. Bumex 2 mg once a day 4. Potassium 20 mEq t.i.d. 5. Ampicillin 500 mg t.i.d. times 7 days. 6. Resume Linzess. 7. D/C back to group home. Plan and coordination of the patient's care discussed in the presence of Payroll And Benefits Assistant and nurse. CONDITION: Stable SCRIBED BY: HARRY VERA [employer] C[employer] Worker scribed while in presence of service performed by Dr. Mart/Cary Xavier APRN on 02/02/21 ([id number])
[2021-02-02] MEDS ORDERED: AMPICILLIN TRIHYDRATE PO ONE (09:30)
[2021-02-02] MEDS: HUMULIN R SUBCUT PRN (11:24)
--- NOTE | 2021-02-02 13:35 | CM.DICTOOL ---
ADMISSION: 01/30/21 12:09 DISCHARGE: FEBRUARY 02, 2021 DATE OF SERVICE: 02/02/21 FINAL DIAGNOSIS HYPOKALEMIA, IMPROVED HYPOGLYCEMIA UTI- ENTEROCOCCUS FAECALIS CHRONIC KIDNEY DISEASE CHRONIC ANEMIA COPD ATRIAL FIBRILLATION DIABETES MELLITUS, TYPE 2 , A1C 02/01/21 , 6.40 HX: HYPONATREMIA CHRONIC RESPIRATORY FAILURE PULMONARY FIBROSIS COR PULMONALE BIVENTRICULAR FAILURE COCCYX SHEARING AND STAGE 2 EXCORIATION BILATERAL GROINS, SLIGHT WOUND RT MIDDLE MEDIAL TOE, CRUSTED BILATERAL PNEUMONIA ADVANCED COPD - OXYGEN DEPENDENT ATRIAL FIBRILLATION ON ELIQUIS CHRONIC ANEMIA LVH DEPENDENT LEG EDEMA, BILATERALLY VENOUS INSUFFICIENCY PERIPHERAL ARTERIAL DISEASE DIABETES MELLITUS TYPE 2- A1C 12/14/20, 7.66 DYSLIPIDEMIA HYPERTENSION HYPOTHYROIDISM HISTORY OF HYPOKALEMIA B12 DEFICIENCY CHRONIC KIDNEY DISEASE STAGE 3 LUMBAR RADICULOPATHY POLYARTHRITIS RHEUMATOID ARTHRITIS ANXIETY STASIS ULCER TO THE RT GREAT TOE GENERALIZED WEAKNESS SURGICAL HISTORY: BILATERAL INGUINAL HERNIA REPAIR BILATERAL TOTAL KNEE REPLACEMENT LEFT ANKLE SURGERY LAST VITALS Temp Pulse Resp BP Pulse Ox 97.7 F 96 H 18 108/67 98 02/02/21 05:48 02/02/21 05:48 02/02/21 05:48 02/02/21 05:48 02/02/21 10:00 TAKE THESE MEDICATIONS AT HOME Albuterol Sulfate (Albuterol Sulfate (Ventolin Hfa) 18 Gm 1 Puff With Spacer) 2 puff IH RTQ6H [facility] Last Admin: 02/02/21 04:50 Dose: 2 puff Documented by: Alprazolam (Alprazolam 0.5 Mg Tablet) 0.5 mg PO BEDTIME PRN PRN Reason: Anxiety Apixaban (Apixaban 5 Mg Tab) 2.5 mg PO BID [facility] Last Admin: 02/02/21 08:27 Dose: 2.5 mg Documented by: Bisacodyl (Bisacodyl 5 Mg Tablet.Dr) 5 mg PO DAILY PRN PRN Reason: CONSTIPATION Bumetanide (Bumetanide 1 Mg Tablet) 2 mg PO DAILY [facility] Last Admin: 02/02/21 08:25 Dose: 2 mg Documented by: Calamine/Phenol (Menthol/Zinc Oxide 113 Gm Ointment) 1 applic TP BID TO BUTTOCKS [facility] Last Admin: 02/02/21 08:26 Dose: 1 applic Documented by: Carvedilol (Carvedilol 3.125 Mg Tablet) 3.125 mg PO BIDWM [facility] Last Admin: 02/02/21 08:25 Dose: 3.125 mg Documented by: Cholecalciferol (Cholecalciferol (Vitamin D3) 1,000 Unit (25 Mcg) Tablet) 5,000 unit PO DAILY [facility] Last Admin: 02/02/21 08:25 Dose: 5,000 unit Documented by: Diltiazem HCl (Diltiazem Hcl 60 Mg Tablet) 60 mg PO BID [facility] Last Admin: 02/02/21 08:25 Dose: 60 mg Documented by: Duloxetine HCl (Duloxetine Hcl 30 Mg Capsule.Dr) 60 mg PO DAILY [facility] Last Admin: 02/02/21 08:25 Dose: 60 mg Documented by: Escitalopram Oxalate (Escitalopram Oxalate 10 Mg Tablet) 5 mg PO DAILY [facility] Last Admin: 02/02/21 08:26 Dose: 5 mg Documented by: Famotidine (Famotidine 20 Mg Tablet) 20 mg PO DAILY [facility] Last Admin: 02/02/21 08:25 Dose: 20 mg Documented by: Insulin Human Regular (Insulin Regular, Human 100 Unit/Ml (3ml) Vial) 0 unit SUBCUT PRN PRN; Protocol PRN Reason: Hyperglycemia Last Admin: 02/02/21 11:24 Dose: 3 unit Documented by: Ipratropium [place] (Ipratropium [place] 12.9 Gm Hfa Inhaler Per Puff With Spacer) 2 puff IH RTQ6H [facility] Last Admin: 02/02/21 04:50 Dose: 2 puff Documented by: Levothyroxine Sodium (Levothyroxine Sodium 100 Mcg Tablet) 100 mcg PO 629 [facility] Last Admin: 02/02/21 05:30 Dose: 100 mcg Documented by: Levothyroxine Sodium (Levothyroxine Sodium 25 Mcg Tablet) 25 mcg PO 30 [facility] Last Admin: 02/02/21 05:30 Dose: 25 mcg Documented by: Magnesium Hydroxide (Magnesium Hydroxide 30 Ml Cup) 30 ml PO DAILY PRN PRN Reason: Constipation Nystatin (Nystatin 15 Gm Powder) 1 applic TP BID [facility] Last Admin: 02/02/21 08:27 Dose: 1 applic Documented by: Polyethylene Glycol (Polyethylene Glycol 17 Gm Powd.Pack) 17 gm PO DAILY PRN PRN Reason: Constipation Potassium Chloride (Potassium Chloride 20 Meq Tab) 20 meq PO TID [facility] Last Admin: 02/02/21 08:25 Dose: 40 meq Documented by: Saccharomyces Boulardii (Saccharomyces Boulardii 250 Mg Capsule) 250 mg PO BID [facility] Last Admin: 02/02/21 08:25 Dose: 250 mg Documented by: Simvastatin (Simvastatin 10 Mg Tablet) 5 mg PO BEDTIME [facility] Last Admin: 02/01/21 20:26 Dose: 5 mg Documented by: Tobramycin Sulfate (Tobramycin Sulfate 5 Ml Opth Lawanda) 1 drop EACHEYE Q8HR [facility] Stop: 02/04/21 12:59 Last Admin: 02/02/21 05:33 Dose: 1 drop Documented by: Tramadol HCl (Tramadol Hcl 50 Mg Tablet) 50 mg PO BID [facility] Last Admin: 02/02/21 08:25 Dose: 50 mg Documented by: Zinc Sulfate (Zinc Sulfate 220 Mg Capsule) 220 mg PO DAILY [facility] Last Admin: 02/02/21 08:25 Dose: 220 mg Documented by: AMPICILLIN 500 MG PO TID X 7 DAYS START THIS AFTERNOON COLACE 100 MG PO DAILY LINZESS CAPSULE 145 MCG 1 CAPSULE IN THE AM ALLERGIES No Known Allergies Allergy (Verified 12/28/20 15:34) DISCONTINUED MEDICATIONS LANTUS INSULIN LINAGLIPTIN NEW PRESCRIPTIONS: 1). POTASSIUM 20 MEQ PO TID 2). AMPICILLIN 500 MG PO TID X 7 DAYS 3) HUMULIN R SQ BID PRN PER PROTOCOL SMOKING: N/A DISEASE SPECIFIC EDUCATION: UTI DECUBITUS CARE [facility] LAB REVIEW: 02/02/21 04:20 02/02/21 04:20 02/02/21 04:20: TSH 3.010 02/02/21 04:20: Free T4 1.50 02/02/21 04:20: Sodium 134.2 L, Potassium 4.21, Chloride 99.1, Carbon Dioxide 32.0 H, Anion Gap 7.31, BUN 22.5 H, Creatinine 1.03, Estimated GFR (MDRD) 68.00, BUN/Creatinine Ratio 21.84, Glucose 120.5 H, Calcium 7.74 L, Total Bilirubin 0.76, AST 31.8, ALT 11.1, Alkaline Phosphatase 91.4, Total Protein 5.35 L, Albumin 2.62 L, Globulin 2.73, Albumin/Globulin Ratio 0.95 02/02/21 04:20: WBC 6.85, RBC 3.97 L, Hgb 10.8 L, Hct 33.9 L, MCV 85.4, MCH 27.2, MCHC 31.9, RDW Coeff of Marek 18.9 H, Plt Count 244, Immature Gran % (Auto) 0.4, Neut % (Auto) 70.8, Lymph % (Auto) 11.4, [place] % (Auto) 13.4 H, Eos % (Auto) 3.4, Baso % (Auto) 0.6, Neut # (Auto) 4.9, Lymph # (Auto) 0.8, [place] # (Auto) 0.9, Eos # (Auto) 0.2, Baso # (Auto) 0.0, Immature Gran # (Auto) 0.0 PLAN: DISCHARGE TODAY: FEBRUARY 02, 2021 RETURN TO [facility] ACTIVITY: TURN AND REPOSITION EVERY 2 HOURS AND PRN WHILE IN BED , IMELDA MATTRESS OVER LAY PT AND OT TO EVAL AND TREAT ONCE CLEARED AND HAS PROGRESSED ATTEMPT UP IN CHAIR FOR MEALS AND PRN FALL PRECAUTIONS BLEEDING PRECAUTIONS DIET: HEART HEALTHY, CONSISTENT CARBS MECHANICAL SOFT CREDIT INTERVIEWER CONSULT MD FOLLOW UP: DR. MART/ RADHAMES BERGER APRN/ JARETT BARBA APRN TO SEE ON ROUNDS CODE STATUS: DO NOT RESUSCITATE LABS: CBC AND CMP ON MONDAY THEN CONTINUE ROUTINE LABS ACCU CHECKS TWICE DAILY, HUMULIN R PRN PER DR. MART SLIDING SCALE PROTOCOL OXYGEN: 2 L/M PER N/C CONTINUOS VITAL SIGNS AND WEIGHTS PER FACILITY PROTOCOLS SKIN CARE : BEFORE WITH DECUBITUS CARE AND PRECAUTIONS FLOAT HEELS AND USE PROTECTIVE OINTMENT PRN CLEAN PENIS TWICE DAILY AND PRN: RETRACT [place], WASH WITH SOAP AND WATER DRY WELL CODE STATUS: DO NOT RESUSCITATE MR UMANZOR IS ALERT AND ORIENTED X 3 AND DISTANT WITH CERTAIN DETAILS, BUT ABLE TO REORIENTATE. HE HAS NOT BEEN ABLE TO AMBULATE OR BE UP IN THE CHAIR DUE TO WEAKNESS. HAS BEEN OXYGEN DEPENDENT DUE TO SEVERE COPD. SKIN IS WARM AND DRY TO TOUCH AND WITH A GENERAL ASHENED APPEARANCE. CHRONIC LESIONS TO RT MIDDLE MEDIAL TOE AND RT GREAT TOE THAT REMAIN CRUSTED AND NO S/S OF INFECTION. SHEARING AND STAGE 2 TO COCCYX AND BUTTOCKS MANAGED WITH REPOSITIONING AND CALMOSEPTINE OINTMENT. EXCORIATION TO BILATERAL GROINS MINIMAL. INCONTINENT OF BOWEL AND BLADDER, DOES USE A URINAL AT TIMES. LAST BM SMALL ON 02/01. HE DOES FEED SELF AND NUTRITIONAL INTAKE AT 50 -75% WITH ADDITIONAL ITEMS FROM SPOUSE PROVIDED AT TIMES. FLUID INTAKE SUBSTANTIAL. HAS BEEN RESIDING AT [facility] SINCE LAST HOSPITAL INPATIENT PLAN IS TO RETURN THERE. UNABLE TO GO HOME WITH SPOUSE, TOTAL CARE AND SHE IS UNABLE TO CARE FOR HIM. MD RADHAMES SANTO APRN ALYCE HANNAN, APRN
[2021-02-02] MEDS: ROCEPHIN 1 GM/50 ML D5W 1 GM/50 ML BAG IV SCH (14:43)
--- NOTE | 2021-02-03 08:57 | HP ---
DATE OF SERVICE: 01/30/21 HISTORY OF PRESENT ILLNESS: This is an 85-year-old white male who is a resident at [facility] presents to the emergency room with hypoglycemia. He had a sugar of 40, was very weak, confused. They gave him Glucagon at the residential. He states he is already feeling better. However, upon evaluation in the emergency room he was found to be severely hypokalemic. He does have a history of this. For some reason he has not been receiving his supplemental potassium at the residential. PAST MEDICAL HISTORY: Diastolic heart failure Chronic hyponatremia Generalized weakness Atrial fibrillation on Eliquis Chronic kidney disease, Stage 3 Decubitus Stage 2 on coccyx History of pneumonia End-stage COPD, oxygen dependent Chronic respiratory failure Pulmonary fibrosis Core pulmonale with biventricular heart failure Chronic anemia LVH Dependent leg edema Venous insufficiency Peripheral arterial disease Diabetes Mellitus, Type 2 on insulin Dyslipidemia Hypertension B12 deficiency Lumbar radiculopathy Hypothyroidism Polyarthritis Rheumatoid arthritis Anxiety Stasis ulcer to the right great toe Recently had a sigmoid volvulus with stent placement two weeks ago PAST SURGICAL HISTORY: Bilateral inguinal hernia repair Bilateral total knee replacement Left ankle surgery REVIEW OF SYSTEMS: CONSTITUTIONAL: Positive for weakness. No night sweats. No malaise, lethargy. No fever or chills. HEENT: Eyes: No visual changes. No eye pain. No eye discharge. ENT: No runny nose. No epistaxis. No sinus pain. No sore throat. No odynophagia. No ear pain. No congestion. RESPIRATORY: No cough, no congestion. No hemoptysis. No shortness of breath. CARDIOVASCULAR: No angina symptoms. No CHF symptoms. No atypical chest pain for CAD. No palpitations. No PND. No orthopnea. GASTROINTESTINAL: No abdominal pain. No nausea or vomiting. No diarrhea or constipation. No hematemesis. No hematochezia. GENITOURINARY: No urgency. No frequency. No dysuria. No hematuria. No obstructive symptoms. No discharge. No pain. No significant abnormal bleeding. MUSCULOSKELETAL: No musculoskeletal pain. No joint swelling. No arthritis. NEUROLOGICAL: No headache. No neck pain. No syncope. No seizures. No dizziness. PSYCHIATRIC: Intermittent confusion. Not anxious. No depression. No suicidal thoughts. No homicidal thoughts. SKIN: No rash. No lesions. No wounds. ENDOCRINE: No unexplained weight loss. No weight gain. HEMATOLOGIC/LYMPHATIC: No anemia. No purpura. No petechiae. No prolonged or excessive bleeding. No palpable lymph nodes. PERSONAL/FAMILY/SOCIAL HISTORY: He is . He is a DNR. He is currently at [facility]. Nonsmoker. No alcohol or illicit drug use. MEDICATIONS: Levothyroxine 125 mcg p.o. daily Simvastatin 5 mg p.o. bedtime Eliquis 2.5 mg p.o. b.i.d. Famotidine 20 mg p.o. daily Carvedilol 3.125 mg p.o.b.i.d. Cholecalciferol 5,000 unit p.o. daily Zinc Sulfate 220 mg p.o. daily Cymbalta 60 mg p.o. daily Ipratropium bromide (Atrovent HFA) two puff INH q.6hr Diltiazem 60 mg p.o. b.i.d. Escitalopram 5 mg p.o. daily Albuterol Sulfate (ProAir) two puff INH q.6h Magnesium Hydroxide 30 mL p.o. daily p.r.n. Saccharomyces boulardii (Florastor) 250 mg p.o. b.i.d. Tramadol 50 mg p.o. b.i.d. Tylenol 650 mg p.o. t.i.d. p.r.n. Bisacodyl 5 mg p.o. q.day p.r.n. Polyethylene glycol 17 gm p.o. daily p.r.n. Alprazolam 0.5 mg p.o. bedtime p.r.n. Tradjenta 5 mg p.o. daily Bumetanide 2 mg p.o. daily Menthol-zinc oxide one application topical b.i.d. Nystatin 100,000 unit /gram powder one application topical b.i.d. Potassium Chloride 40 mEq p.o. t.i.d. Docusate Sodium 100 mg p.o. b.i.d. Insulin Glargine 15 unit subcut bedtime Linzess 145 mcg p.o. q.a.m. ALLERGIES: NKDA PHYSICAL EXAMINATION: VITAL SIGNS: Temperature 96.4, heart rate 86, respirations 16, blood pressure 119/73, pulse ox 95%. Pallor positive. HEENT: Head normocephalic, atraumatic. Eyes: Extraocular muscles are intact. Pupils are equal, round and reactive to light and accommodation. Ears: No lesions. Nose appeared normal. Throat: No exudate or erythema. NECK: Supple. No JVD, no carotid bruit. No lymphadenopathy or thyromegaly. LUNGS: Diminished breath sounds. Clear to auscultation. Percussion note normal. Chest symmetrical. HEART: Irregular heart rate. S1, S2, no S3. No murmur. No cyanosis or clubbing. No ascites. Pulses: Dorsalis pedis and posterior tibial pulses +1 to +2 bilaterally. ABDOMEN: Soft. Nontender. Bowel sounds active. No CVA tenderness. No mass felt. EXTREMITIES: Trace bilateral lower extremity edema. Full range of motion of all extremities, equal. NEUROLOGIC: No focal deficit. Cranial nerves II through XII are grossly intact. No headache, no double vision or headache. SKIN: Not dry. Intact. Turgor - normal. LYMPHATIC: No palpable lymph nodes/no lymphedema. MUSCULOSKELETAL: Normal joints with no swelling. Muscle tone is normal. White count 10.17, hemoglobin 12.1, hematocrit 37.0, platelets 226. Sodium 134, potassium 2.10, chloride 93, carbon dioxide 35, BUN 19.8, creatinine 0.97, glucose 122, magnesium 1.23, AST 26, ALT 7.8, alkaline phosphatase 90, troponin 0.04, total CK 36.7, total protein 5.75, albumin 2.86. Chest x-ray shows cardiomegaly with possible adjacent consolidation and/or atelectasis. ASSESSMENT: 1. Severe hypokalemia 2. Core pulmonale with biventricular heart failure 3. Chronic leg edema 4. End-stage COPD 5. Diabetes mellitus type 2, insulin dependent 6. Atrial fibrillation on Eliquis PLAN: 1. We will admit. 2. Routine telemetry orders. 3. Potassium 40 mEq p.o. t.i.d., 30 mEq IV in NS. 4. Routine telemetry. 5. CBC, CMP daily. 6. T4, TSH. 7. A1C. 8. Discontinue Lantus and Tradjenta, put on sliding scale insulin coverage. 9. Continue other home medications. 10. Regular diet. 11. Oxygen at 1 to 2L. 12. Will follow closely. TIME SPENT: More than 70 minutes. MATTHEW
--- NOTE | 2021-02-04 08:01 | PN ---
DATE OF SERVICE: 02/01/2021 SUBJECTIVE: The patient was seen and examined with the Nurse Practitioner. The patient's hypokalemia has resolved. Kidney functions have improved. Hydration status has improved. Hypoglycemia seems to have resolved. Feeling much better. Cardiovascular status is stable. TIME SPENT: More than 30 minutes. Plan and coordination of the patient's care discussed in the presence of nurse. MATTHEW
--- NOTE | 2021-02-04 08:59 | DS ---
DATE OF SERVICE: 02/02/2021 FINAL DIAGNOSIS: HYPOKALEMIA, IMPROVED HYPOGLYCEMIA UTI- ENTEROCOCCUS FAECALIS CHRONIC KIDNEY DISEASE CHRONIC ANEMIA COPD ATRIAL FIBRILLATION DIABETES MELLITUS, TYPE 2 , A1C 02/01/21 , 6.40 HISTORY: HYPONATREMIA CHRONIC RESPIRATORY FAILURE PULMONARY FIBROSIS COR PULMONALE BIVENTRICULAR FAILURE COCCYX SHEARING AND STAGE 2 EXCORIATION BILATERAL GROINS, SLIGHT WOUND RT MIDDLE MEDIAL TOE, CRUSTED BILATERAL PNEUMONIA ADVANCED COPD - OXYGEN DEPENDENT ATRIAL FIBRILLATION ON ELIQUIS CHRONIC ANEMIA LVH DEPENDENT LEG EDEMA, BILATERALLY VENOUS INSUFFICIENCY PERIPHERAL ARTERIAL DISEASE DIABETES MELLITUS TYPE 2- A1C 12/14/20, 7.66 DYSLIPIDEMIA HYPERTENSION HYPOTHYROIDISM HISTORY OF HYPOKALEMIA B12 DEFICIENCY CHRONIC KIDNEY DISEASE STAGE 3 LUMBAR RADICULOPATHY POLYARTHRITIS RHEUMATOID ARTHRITIS ANXIETY STASIS ULCER TO THE RT GREAT TOE GENERALIZED WEAKNESS SURGICAL HISTORY: BILATERAL INGUINAL HERNIA REPAIR BILATERAL TOTAL KNEE REPLACEMENT LEFT ANKLE SURGERY LAST VITALS: Temp Pulse Resp BP Pulse Ox 97.7 F 96 H 18 108/67 98 02/02/21 05:48 02/02/21 05:48 02/02/21 05:48 02/02/21 05:48 02/02/21 10:00 DISCHARGE INSTRUCTIONS: DISCHARGE TODAY: FEBRUARY 02, 2021 RETURN TO [facility]. MD FOLLOW UP: DR. MART/ RADHAMES BERGER APRN/ JARETT BARBA APRN TO SEE ON ROUNDS. CODE STATUS: DO NOT RESUSCITATE. LABS: CBC AND CMP ON MONDAY THEN CONTINUE ROUTINE LABS ACCU CHECKS TWICE DAILY, HUMULIN R PRN PER DR. MART SLIDING SCALE PROTOCOL. OXYGEN: 2 L/M PER N/C CONTINUOS. VITAL SIGNS AND WEIGHTS PER FACILITY PROTOCOLS. SKIN CARE : BEFORE WITH DECUBITUS CARE AND PRECAUTIONS. FLOAT HEELS AND USE PROTECTIVE OINTMENT PRN. CLEAN PENIS TWICE DAILY AND PRN: RETRACT [place], WASH WITH SOAP AND WATER DRY WELL. CODE STATUS: DO NOT RESUSCITATE. TAKE THESE MEDICATIONS AT HOME: Albuterol Sulfate (Albuterol Sulfate (Ventolin Hfa) 18 Gm 1 Puff With Spacer) 2 puff IH RTQ6H [facility] Last Admin: 02/02/21 04:50 Dose: 2 puff Documented by: Alprazolam (Alprazolam 0.5 Mg Tablet) 0.5 mg PO BEDTIME PRN PRN Reason: Anxiety Apixaban (Apixaban 5 Mg Tab) 2.5 mg PO BID [facility] Last Admin: 02/02/21 08:27 Dose: 2.5 mg Documented by: Bisacodyl (Bisacodyl 5 Mg Tablet.) 5 mg PO DAILY PRN PRN Reason: CONSTIPATION Bumetanide (Bumetanide 1 Mg Tablet) 2 mg PO DAILY [facility] Last Admin: 02/02/21 08:25 Dose: 2 mg Documented by: Calamine/Phenol (Menthol/Zinc Oxide 113 Gm Ointment) 1 applic TP BID TO BUTTOCKS [facility] Last Admin: 02/02/21 08:26 Dose: 1 applic Documented by: Carvedilol (Carvedilol 3.125 Mg Tablet) 3.125 mg PO BIDWM [facility] Last Admin: 02/02/21 08:25 Dose: 3.125 mg Documented by: Cholecalciferol (Cholecalciferol (Vitamin D3) 1,000 Unit (25 Mcg) Tablet) 5,000 unit PO DAILY [facility] Last Admin: 02/02/21 08:25 Dose: 5,000 unit Documented by: Diltiazem HCl (Diltiazem Hcl 60 Mg Tablet) 60 mg PO BID [facility] Last Admin: 02/02/21 08:25 Dose: 60 mg Documented by: Duloxetine HCl (Duloxetine Hcl 30 Mg Capsule.) 60 mg PO DAILY [facility] Last Admin: 02/02/21 08:25 Dose: 60 mg Documented by: Escitalopram Oxalate (Escitalopram Oxalate 10 Mg Tablet) 5 mg PO DAILY [facility] Last Admin: 02/02/21 08:26 Dose: 5 mg Documented by: Famotidine (Famotidine 20 Mg Tablet) 20 mg PO DAILY [facility] Last Admin: 02/02/21 08:25 Dose: 20 mg Documented by: Insulin Human Regular (Insulin Regular, Human 100 Unit/Ml (3ml) Vial) 0 unit SUBCUT PRN PRN; Protocol PRN Reason: Hyperglycemia Last Admin: 02/02/21 11:24 Dose: 3 unit Documented by: Ipratropium Lawrence (Ipratropium Lawrence 12.9 Gm Hfa Inhaler Per Puff With Spacer) 2 puff IH RTQ6H [facility] Last Admin: 02/02/21 04:50 Dose: 2 puff Documented by: Levothyroxine Sodium (Levothyroxine Sodium 100 Mcg Tablet) 100 mcg PO 06 [facility] Last Admin: 02/02/21 05:30 Dose: 100 mcg Documented by: Levothyroxine Sodium (Levothyroxine Sodium 25 Mcg Tablet) 25 mcg PO 629 [facility] Last Admin: 02/02/21 05:30 Dose: 25 mcg Documented by: Magnesium Hydroxide (Magnesium Hydroxide 30 Ml Cup) 30 ml PO DAILY PRN PRN Reason: Constipation Nystatin (Nystatin 15 Gm Powder) 1 applic TP BID [facility] Last Admin: 02/02/21 08:27 Dose: 1 applic Documented by: Polyethylene Glycol (Polyethylene Glycol 17 Gm Powd.Pack) 17 gm PO DAILY PRN PRN Reason: Constipation Potassium Chloride (Potassium Chloride 20 Meq Tab) 20 meq PO TID [facility] Last Admin: 02/02/21 08:25 Dose: 40 meq Documented by: Saccharomyces Boulardii (Saccharomyces Boulardii 250 Mg Capsule) 250 mg PO BID [facility] Last Admin: 02/02/21 08:25 Dose: 250 mg Documented by: Simvastatin (Simvastatin 10 Mg Tablet) 5 mg PO BEDTIME [facility] Last Admin: 02/01/21 20:26 Dose: 5 mg Documented by: Tobramycin Sulfate (Tobramycin Sulfate 5 Ml Opth Lawanda) 1 drop EACHEYE Q8HR [facility] Stop: 02/04/21 12:59 Last Admin: 02/02/21 05:33 Dose: 1 drop Documented by: Tramadol HCl (Tramadol Hcl 50 Mg Tablet) 50 mg PO BID [facility] Last Admin: 02/02/21 08:25 Dose: 50 mg Documented by: Zinc Sulfate (Zinc Sulfate 220 Mg Capsule) 220 mg PO DAILY [facility] Last Admin: 02/02/21 08:25 Dose: 220 mg Documented by: AMPICILLIN 500 MG PO TID X 7 DAYS START THIS AFTERNOON COLACE 100 MG PO DAILY LINZESS CAPSULE 145 MCG 1 CAPSULE IN THE AM ALLERGIES: No Known Allergies Allergy (Verified 12/28/20 15:34) DISCONTINUED MEDICATIONS: LANTUS INSULIN LINAGLIPTIN NEW PRESCRIPTIONS: 1). POTASSIUM 20 MEQ PO TID 2). AMPICILLIN 500 MG PO TID X 7 DAYS 3) HUMULIN R SQ BID PRN PER PROTOCOL SMOKING: N/A DISEASE SPECIFIC EDUCATION: UTI DECUBITUS CARE COVID GUIDELINES LAB REVIEW: 02/02/21 04:20 02/02/21 04:20 02/02/21 04:20: TSH 3.010 02/02/21 04:20: Free T4 1.50 02/02/21 04:20: Sodium 134.2 L, Potassium 4.21, Chloride 99.1, Carbon Dioxide 32.0 H, Anion Gap 7.31, BUN 22.5 H, Creatinine 1.03, Estimated GFR (MDRD) 68.00, BUN/Creatinine Ratio 21.84, Glucose 120.5 H, Calcium 7.74 L, Total Bilirubin 0.76, AST 31.8, ALT 11.1, Alkaline Phosphatase 91.4, Total Protein 5.35 L, Albumin 2.62 L, Globulin 2.73, Albumin/Globulin Ratio 0.95 02/02/21 04:20: WBC 6.85, RBC 3.97 L, Hgb 10.8 L, Hct 33.9 L, MCV 85.4, MCH 27.2, MCHC 31.9, RDW Coeff of Marek 18.9 H, Plt Count 244, Immature Gran % (Auto) 0.4, Neut % (Auto) 70.8, Lymph % (Auto) 11.4, [place] % (Auto) 13.4 H, Eos % (Auto) 3.4, Baso % (Auto) 0.6, Neut # (Auto) 4.9, Lymph # (Auto) 0.8, [place] # (Auto) 0.9, Eos # (Auto) 0.2, Baso # (Auto) 0.0, Immature Gran # (Auto) 0.0 ACTIVITY: TURN AND REPOSITION EVERY 2 HOURS AND PRN WHILE IN BED , IMELDA MATTRESS OVER LAY PT AND OT TO EVALUATION AND TREAT ONCE CLEARED AND HAS PROGRESSED ATTEMPT UP IN CHAIR FOR MEALS AND PRN FALL PRECAUTIONS BLEEDING PRECAUTIONS DIET: HEART HEALTHY, CONSISTENT CARBS MECHANICAL SOFT SEAM TAPER MACHINE CONSULT HOSPITAL COURSE: 86 year old white male who is a resident of [facility]. He had an episode of hypoglycemia with sugar into the 40's at the senior living. He was confused and lethargic. He was given glucagon at the senior living and was brought out to the ER. By the time he got to the ER his sugar was up to 104. However they went ahead did labs. CMP revealed his potassium was at 2.1. He was admitted for severe hypokalemia and was started on oral potassium 40meq TID along with IV Potassium 30meq and his IV fluids. Kidney function he has chronic kidney disease and they are remained stable. He also has chronic anemia. An A1c was done which revealed that it was 6.4. He had been receiving Lantus 15 units at night along with Tradjenta 5mg daily so both of these were discontinued and he was placed on sliding scale. He will go back to the senior living on sliding scale twice a day only. He had an abnormal U/A and urine culture revealed enterococcus. This report was finalized today. He will go back to the senior living on Ampicillin 500mg TID for the next 7 days. Other than some intermittent confusion which is not unusual for him his white count was normal. He was afebrile for the urinary tract infection. He has been eating well. Over all his status has generally declined over the past several months since going to the senior living. He has a lot of underline chronic medical conditions with end stage COPD, Atrial fibrillation, chronic respiratory failure and all of these remained stable while being here. He will be discharged to the senior living today. Also to be noted that the senior living by mistake had been giving him 2mg of Bumex rather than 1mg of Bumex daily and he was not on any supplemental potassium. We are unclear why he was not supplemental potassium as this has been ordered and he was supposed to be on 20mg TID. He will resume his 20mg TID of oral potassium and Bumex 1mg daily along with the discontinuation of the Lantus and the Tradjenta and then we will do sliding scale coverage just twice daily and if it found that this is not needed over the next several weeks we will discontinue this all together given his A1c at 6.4. He will be discharged in stable condition although prognosis is poor given the progression of his multiple chronic diseases and we will follow up with him in the senior living. He is to have a repeat CBC and CMP in one week. TIME SPENT: More than 60 minutes. MTDD
--- NOTE | 2021-02-08 09:50 | PN ---
DATE OF SERVICE: 02/02/21 SUBJECTIVE: The patient was seen and examined with the nurse practitioner. The patient's birthday is today. Cardiovascular status stable. No PND, no orthopnea. The family is in the room. The patient's hypokalemia and hypoglycemia has resolved. The patient is going to be discharged home. Condition at the time of discharge stable. Discharge Summary was dictated by the nurse practitioner. TIME SPENT: More than 30 minutes. Plan and coordination of the patient's care discussed in the presence of nurse. MATTHEW
--- NOTE | 2021-02-08 09:51 | PN ---
BILLING 01/30/21 ADMISSION DAY LEVEL 5 01/31/21 INTERMEDIATE 02/01/21 INTERMEDIATE 02/02/21 D IN DISCHARGE MTDD
== END 2021-02-02 15:05 | DRG 690 ==
LOC: ED 09:20 → MEDSURG A 12:09
PROVIDERS: ADMIT Internal Medicine; ATTEND Internal Medicine
DX: B95.5 Unspecified streptococcus as the cause of diseases classified elsewhere; D64.9 Anemia, unspecified; N39.0 Urinary tract infection, site not specified; N18.9 Chronic kidney disease, unspecified; E87.1 Hypo-osmolality and hyponatremia; Z79.01 Long term (current) use of anticoagulants; Z20.822 Contact with and (suspected) exposure to COVID-19; E86.0 Dehydration; I48.91 Unspecified atrial fibrillation; I50.9 Heart failure, unspecified; R60.0 Localized edema; J44.9 Chronic obstructive pulmonary disease, unspecified; E11.9 Type 2 diabetes mellitus without complications